=== PATIENT | female | born 1965 | race Caucasian/White ===

== ENCOUNTER 2022-07-20 15:35 | Outpatient (OUT) | payer BC, SELFPAY ==
--- NOTE | 2022-07-20 15:44 | MM_ITS ---
Patient: CIELO STEVENS Exam Date: 07/20/2022 : 1965 Gender:F Ordering : [facility] Admission #: [id number] Family : Order #: [id number] CLICK HERE TO VIEW EXAM RADIOLOGY REPORT PROCEDURE: MM TOMOSYNTHESIS SCREENING BI COMPARISON: MG MAMM SCREEN 3D MICHELLE CAD, 07/16/2021. INDICATIONS: Screening mammogram Calculator Name NCI Breast Cancer Risk Assessment Tool 5 Year Breast Cancer Risk 2.40% Lifetime Breast Cancer Risk 14.80% Personal Breast Cancer No Personal Ovarian Cancer No Treatments None Family Cancers Mother with breast cancer at age 55. LOCATION: [facility] BREAST COMPOSITION: Heterogeneously dense,which may obscure small masses. FINDINGS: DIAGNOSTIC CATEGORY 2--BENIGN FINDING: RIGHT BREAST: No significant suspicious finding. No significant change has occurred. LEFT BREAST: No significant suspicious finding. Scattered benign-appearing calcifications are present. No significant change has occurred. RECOMMENDATIONS: ROUTINE MAMMOGRAM AND CLINICAL EVALUATION IN 12 MONTHS. PLEASE NOTE: A NORMAL MAMMOGRAM DOES NOT EXCLUDE THE POSSIBILITY OF BREAST CANCER. A CLINICALLY SUSPICIOUS PALPABLE LUMP SHOULD BE BIOPSIED. Dictated by: Hayden Perla M.D. on 07/21/2022 at 11:39 Approved by: Hayden Perla M.D. on 07/21/2022 at 11:44
== END 2022-07-20 15:36 ==
LOC: MAMMO 15:38
PROVIDERS: PCP Nurse Practitioner Family; Visit Provider Nurse Practitioner Family
DX: Z12.31 Encounter for screening mammogram for malignant neoplasm of breast (principal); Z80.3 Family history of malignant neoplasm of breast
CPT/HCPCS: 77063; 77067

== ENCOUNTER 2022-09-21 14:47 | Outpatient (OUT) | payer BC, SELFPAY ==
[2022-09-21 15:14] LABS: Basophils Percent Auto 0.5 % (0.2-2.0); Eosinophils Absolute Auto 0.3 10^3/uL (0.0-0.7); Eosinophils Percent Auto 4.6 % (0.9-7.0); Hematocrit 37.8 % (36.0-48.0); Hemoglobin 12.4 g/dL (12.0-16.0); Immature Granulocytes Abs Auto 0.02 10^3/uL (0.00-0.03); Immature Granulocytes Pct Auto 0.3 % (0.0-0.5); Lymphocytes Absolute Auto 2.6 10^3/uL (1.2-3.8); Lymphocytes Percent Auto 35.3 % (20.5-60.0); Mean Corpuscular HGB Conc 32.8 g/dL (29.9-35.2); Mean Corpuscular Hemoglobin 31.1 pg (26.7-34.0); Mean Corpuscular Volume 94.7 fL (81.0-99.0); Monocytes Absolute Auto 0.5 10^3/uL (0.3-0.8); Monocytes Percent Auto 6.8 % (1.7-12.0); Neutrophils Absolute Auto 3.9 10^3/uL (1.4-6.5); Neutrophils Percent Auto 52.5 % (43.0-75.0); Platelet Count 266 10^3/uL (150-450); Red Blood Count 3.99 10^6/uL (4.20-5.40); Red Cell Distribution Width 13.3 % (11.0-15.0); White Blood Count 7.4 10^3/uL (4.0-11.0)
[2022-09-21 15:21] LABS: Erythrocyte Sedimentation Rate 24 mm/hr (<=30)
[2022-09-21 15:22] LABS: Alanine Aminotransferase 32 U/L (14-59); Albumin Globulin Ratio 0.9; Albumin Level 3.7 g/dL (3.4-5.0); Alkaline Phosphatase 92 U/L (46-116); Aspartate Amino Transferase 22 U/L (15-37); Bilirubin Direct 0.1 mg/dL (0.0-0.2); Bilirubin Total 0.6 mg/dL (0.2-1.0); Estimated GFR (African America >60 (>=60); Estimated GFR (Non-African Ame >60 (>=60); Globulin 3.9 g/dL; Total Protein 7.6 g/dL (6.4-8.2)
== END 2022-09-21 14:48 | disposition home or self-care (01) ==
LOC: LAB 14:50
PROVIDERS: PCP Nurse Practitioner Family; Visit Provider Internal Medicine Rheumatology
DX: M05.79 Rheumatoid arthritis with rheumatoid factor of multiple sites without organ or systems involvement (principal)
CPT/HCPCS: 36415; 80076; 82565; 85025; 85652

== ENCOUNTER 2022-12-07 15:25 | Outpatient (OUT) | payer BC, SELFPAY ==
[2022-12-07 15:41] LABS: Basophils Percent Auto 0.5 % (0.2-2.0); Eosinophils Absolute Auto 0.3 10^3/uL (0.0-0.7); Eosinophils Percent Auto 3.7 % (0.9-7.0); Hematocrit 36.8 % (36.0-48.0); Hemoglobin 12.3 g/dL (12.0-16.0); Immature Granulocytes Abs Auto 0.01 10^3/uL (0.00-0.03); Immature Granulocytes Pct Auto 0.1 % (0.0-0.5); Lymphocytes Absolute Auto 2.2 10^3/uL (1.2-3.8); Lymphocytes Percent Auto 30.4 % (20.5-60.0); Mean Corpuscular HGB Conc 33.4 g/dL (29.9-35.2); Mean Corpuscular Hemoglobin 32.4 pg (26.7-34.0); Mean Corpuscular Volume 96.8 fL (81.0-99.0); Mean Platelet Volume 8.7 fL (9.5-13.5); Monocytes Absolute Auto 0.4 10^3/uL (0.3-0.8); Monocytes Percent Auto 5.7 % (1.7-12.0); Neutrophils Absolute Auto 4.4 10^3/uL (1.4-6.5); Neutrophils Percent Auto 59.6 % (43.0-75.0); Platelet Count 264 10^3/uL (150-450); Red Cell Distribution Width 13.5 % (11.0-15.0); White Blood Count 7.3 10^3/uL (4.0-11.0)
[2022-12-07 15:44] LABS: Erythrocyte Sedimentation Rate 22 mm/hr (<=30)
[2022-12-07 16:39] LABS: Alanine Aminotransferase 39 U/L (14-59); Albumin Level 3.8 g/dL (3.4-5.0); Alkaline Phosphatase 92 U/L (46-116); Aspartate Amino Transferase 24 U/L (15-37); Bilirubin Direct 0.2 mg/dL (0.0-0.2); Bilirubin Total 0.8 mg/dL (0.2-1.0); Estimated GFR (African America >60 (>=60); Estimated GFR (Non-African Ame 56 (>=60); Globulin 3.9 g/dL; Total Protein 7.7 g/dL (6.4-8.2)
== END 2022-12-07 15:26 | disposition home or self-care (01) ==
LOC: LAB 15:26
PROVIDERS: PCP Nurse Practitioner Family; Visit Provider Internal Medicine Rheumatology
DX: M05.79 Rheumatoid arthritis with rheumatoid factor of multiple sites without organ or systems involvement (principal)
CPT/HCPCS: 36415; 80076; 82565; 85025; 85652

== ENCOUNTER 2023-02-10 13:10 | Outpatient (OUT) | payer BC, SELFPAY ==
--- OUTSIDE RECORDS SUMMARY | 2023-02-10 13:14 | XMS_ITS | CCD ---
Author Name Unknown Address [address] [place] [address] Organization [facility] Care Team Providers Care Director Packaging Name Role Phone MARILYN DE Attending Unavailable SANTINO, MARILYN Admitting Unavailable Zieber, Hayden Consulting Unavailable SANTINO, MARILYN Primary Care Unavailable SANTINO, MARILYN Consulting Unavailable SANTINO, MARILYN Primary Care Unavailable WEST, KEILA Ambrocio Attending Unavailable WEST, KEILA V Admitting Unavailable WEST, KEILA V Consulting Unavailable SANTINO, MARILYN Primary Care Unavailable WEST, KEILA V Attending Unavailable WEST, KEILA V Admitting Unavailable WEST, KEILA V Consulting Unavailable ZiebHayden ray Consulting Unavailable SANTINO, MARILYN Primary Care Unavailable WEST, KEILA V Attending Unavailable WEST, KEILA V Admitting Unavailable WEST, KEILA V Consulting Unavailable SANTINO, MARILYN Primary Care Unavailable WEST, EKILA V Attending Unavailable WEST, KEILA V Admitting Unavailable WEST, KEILA V Consulting Unavailable SANTINO, MARILYN Primary Care Unavailable WEST, KEILA V Attending Unavailable WEST, KEILA V Admitting Unavailable WEST, KEILA V Consulting Unavailable Zieber, Hayden Consulting Unavailable SANTINO, MARILYN Attending Unavailable SANTINO, MARILYN Admitting Unavailable SANTINO, MARILYN Primary Care Unavailable AHMED, ERIKA Attending Unavailable AHMED, MOHNICOLASED Admitting Unavailable AHMED, MOHAMMED Consulting Unavailable SANTINO, MARILYN Primary Care Unavailable SANTINO, MARILYN Attending Unavailable SANTINO, MARILYN Admitting Unavailable SANTINO, MARILYN Consulting Unavailable SANTINO, MARILYN Primary Care Unavailable SANTINO, MARILYN Primary Care Unavailable AHMED, MOHAMMED Attending Unavailable AHMED, MOHAMMED Admitting Unavailable AHMED, MOHAMMED Consulting Unavailable Esdras Bonilla Admitting Unavailable Esdras Bonilla Attending Unavailable Problems Active Problems Problem Classification Problem Date Documented Da te Episodic/Chronic Conditions associated with dizziness or vertigo (4 sources) Dizziness and giddiness; Translations: [DIZZINESS AND GIDDINESS] Onset: 06-02-2022 Episodic Other connective tissue disease (1 source) Polymyalgia rheumatica; Translations: [POLYMYALGIA RHEUMATICA] Onset: 08-03-2021 Chronic Other inflammatory condition of skin (4 sources) Psoriatic arthritis mutilans; 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] Onset: 07-30-2021 Chronic Rheumatoid arthritis and related disease (5 sources) Rheumatoid arthritis with rheumatoid factor, unspecified; Translations: [RA W/ RHEUMATOID FACTOR UNSPECIFIED] Onset: 08-03-2021 Chronic Systemic lupus erythematosus and connective tissue disorders (1 source) Systemic sclerosis, unspecified; Translations: [SYSTEMIC SCLEROSIS UNSPECIFIED] Onset: 08-03-2021 Chronic Past or Other Problems Problem Classification Problem Date Documented Da te Episodic/Chronic Other aftercare (4 sources) Encounter for surgical aftercare following surgery on the circulatory system; Translations: [ENC SURG AFTRCARE FLW SURG CIRC SYS] Onset: 2 Episodic Other screening for suspected conditions (not mental disorders or infectious disease) (4 sources) Encounter for screening mammogram for malignant neoplasm of breast; Translations: [ENC SCR MAMMO MALIG NEOPLASM BREAST] Onset: 2 Episodic Phlebitis; thrombophlebitis and thromboembolism (5 sources) Phlebitis and thrombophlebitis of superficial vessels of left lower extremity; Translations: [PHLEBITIS AND TP SUP VES LT LOW EXT] Onset: 2 Episodic Residual codes; unclassified (1 source) Family history of malignant neoplasm of breast; Translations: [FAMILY HX MALIG NEOPLASM OF BREAST] Onset: 2 Episodic Varicose veins of lower extremity (5 sources) Varicose veins of bilateral lower extremities with pain; Translations: [VARICOSE VNS MICHELLE LOW EXTREM W/PAIN] Onset: 2 Episodic Results Test Name Value Interpretation Reference Range Facility GERONIMO Antinuclear Antibodieson 06-22-2022 Antinuclear Abs, IFA Negative Normal . [facility] Comment on above: Result Comment: Nega tive <1:80 Borderline 1:80 Positive >1:80 ICAP nomenclature: AC-[id number] For more information about Hep-2 cell patterns use ANApatterns.org, the official website for the International Consensus on Antinuclear Antibody (GERONIMO) Patterns (ICAP). Performed at: [address] [id number] Swimming Pool Installer And Servicer: Charlie Arevalo PhD, Phone: [phone] Performed By: #### A DNA, C4, GERONIMO, CH50, C3, LOZOYA #### [facility] , Anti-Lozoya Antibodieson 05 Anti-Lozoya Antibodies <0.2 Normal 0.0-0.9 [facility] Comment on above: Performed By: #### A DNA, C4, GERONIMO, CH50, C3, LOZOYA #### [facility] , Anti-dsDNA(DBL)Abon 06-23-19 23 Anti-dsDNA(DBL)Ab 1 Normal 0-9 [facility] Comment on above: Result Comment: Nega tive <5 Equivocal 5 - 9 Positive >9 Performed at: [address] [id number] Swimming Pool Installer And Servicer: Charlie Arevalo PhD, Phone: [phone] PERFORMED BY: [address] [place] [address] PATHOLOGIST MULTIPLE KNIFE EDGE TRIMMER OPERATOR EULALIA OLSEN M.D. Performed By: #### A DNA, C4, GERONIMO, CH50, C3, LOZOYA #### [facility] , C-Reactive Proteinon 023 C-Reactive Protein 1.1 mg/dL High 0.0-0.5 [facility] Comment on above: Result Comment: PERF ORMED BY: [address] [place] [address] PATHOLOGIST MULTIPLE KNIFE EDGE TRIMMER OPERATOR EULALIA OLSEN M.D. Performed By: #### A DNA, C4, GERONIMO, CH50, C3, LOZOYA #### [facility] , Complement C3on 06-22-2022 Complement C3 147 mg/dL Normal 82-167 [facility] Comment on above: Result Comment: Perf ormed at: [address] [id number] Swimming Pool Installer And Servicer: Charlie Arevalo PhD, Phone: [phone] Performed By: #### A DNA, C4, GERONIMO, CH50, C3, LOZOYA #### [facility] , Complement C4on 06-22-2022 Complement C4 33 mg/dL Normal 12-38 [facility] Comment on above: Performed By: #### A DNA, C4, GERONIMO, CH50, C3, LOZOYA #### [facility] , Complement Total (CH50)on Complement Total (CH50) 55 Normal >41 [facility] Comment on above: Result Comment: Age Male Female 1 - 30 days Not Estab. Not Estab. 31 days - 6 months >32 >20 7 months - 17 years >39 >39 >17 years >41 >41 NOTE: The adult ( >17 years ) reference interval range is used to flag abnormals on this report. If the patient is 17 years old or younger, use the table above to determine out of range values. Performed at: [facility] [address] [id number] Swimming Pool Installer And Servicer: Charlie Arevalo PhD, Phone: [phone] PERFORMED BY: [place] [address] PATHOLOGIST MULTIPLE KNIFE EDGE TRIMMER OPERATOR EULALIA OLSEN M.D. Performed By: #### A DNA, C4, GERONIMO, CH50, C3, LOZOYA #### [facility] , Complete Blood Count Auto Di ffon 06-22-2022 Basophils (Bld) [#/Vol] 0.1 10*3/uL Normal 0.0-0.2 [facility] Comment on above: Performed By: #### H BCAB, HBSAG, HCV RX PCR, HBSAB #### [facility] , #### ADDONUAPLUS, ESR, CBC, CMP, CRP #### [address] Basophils/100 WBC (Bld) 0.7 % Normal . [facility] Comment on above: Performed By: #### H BCAB, HBSAG, HCV RX PCR, HBSAB #### [facility] , #### ADDONUAPLUS, ESR, CBC, CMP, CRP #### [address] Eosinophils (Bld) [#/Vol] 0.3 10*3/uL Normal 0.0-0.45 [facility] Comment on above: Performed By: #### H BCAB, HBSAG, HCV RX PCR, HBSAB #### [facility] , #### ADDONUAPLUS, ESR, CBC, CMP, CRP #### [address] Eosinophils/100 WBC (Bld) 3.8 % Normal . [facility] Comment on above: Performed By: #### H BCAB, HBSAG, HCV RX PCR, HBSAB #### [facility] , #### ADDONUAPLUS, ESR, CBC, CMP, CRP #### [address] Erythrocyte distribution width (RBC) [Ratio] 13.7 % Normal 11.9-15.3 [facility] Comment on above: Performed By: #### H BCAB, HBSAG, HCV RX PCR, HBSAB #### [facility] , #### ADDONUAPLUS, ESR, CBC, CMP, CRP #### [address] Hematocrit (Bld) [Volume fraction] 39.4 % Normal 34.0-46.4 [facility] Comment on above: Performed By: #### H BCAB, HBSAG, HCV RX PCR, HBSAB #### [facility] , #### ADDONUAPLUS, ESR, CBC, CMP, CRP #### [address] Hemoglobin (Bld) [Mass/Vol] 13.0 g/dL Normal 11.8-15.4 [facility] Comment on above: Performed By: #### H BCAB, HBSAG, HCV RX PCR, HBSAB #### [facility] , #### ADDONUAPLUS, ESR, CBC, CMP, CRP #### [address] Lymphocytes (Bld) [#/Vol] 2.5 10*3/uL Normal 1.00-4.8 [facility] Comment on above: Performed By: #### H BCAB, HBSAG, HCV RX PCR, HBSAB #### [facility] , #### ADDONUAPLUS, ESR, CBC, CMP, CRP #### [address] Lymphocytes/100 WBC (Bld) 35.4 % Normal . [facility] Comment on above: Performed By: #### H BCAB, HBSAG, HCV RX PCR, HBSAB #### [facility] , #### ADDONUAPLUS, ESR, CBC, CMP, CRP #### [address] MCH (RBC) [Entitic mass] 31.3 pg Normal 24.7-34.3 [facility] Comment on above: Performed By: #### H BCAB, HBSAG, HCV RX PCR, HBSAB #### [facility] , #### ADDONUAPLUS, ESR, CBC, CMP, CRP #### [address] MCV (RBC) [Entitic vol] 94.7 fL Normal 80-100 [facility] Comment on above: Performed By: #### H BCAB, HBSAG, HCV RX PCR, HBSAB #### [facility] , #### ADDONUAPLUS, ESR, CBC, CMP, CRP #### [address] Mean Corpuscular HGB Conc 33.1 g/dL Normal 32.0-35.0 [facility] Comment on above: Performed By: #### H BCAB, HBSAG, HCV RX PCR, HBSAB #### [facility] , #### ADDONUAPLUS, ESR, CBC, CMP, CRP #### [place] [address] [place] Monocytes (Bld) [#/Vol] 0.3 10*3/uL Normal 0.0-0.8 [facility] Comment on above: Performed By: #### H BCAB, HBSAG, HCV RX PCR, HBSAB #### [facility] , #### ADDONUAPLUS, ESR, CBC, CMP, CRP #### [place] [address] [place] Monocytes/100 WBC (Bld) 4.7 % Normal . [facility] Comment on above: Performed By: #### H BCAB, HBSAG, HCV RX PCR, HBSAB #### [facility] , #### ADDONUAPLUS, ESR, CBC, CMP, CRP #### [place] [address] [place] Neutrophils (Bld) [#/Vol] 3.9 10*3/uL Normal 1.8-7.7 [facility] Comment on above: Performed By: #### H BCAB, HBSAG, HCV RX PCR, HBSAB #### [facility] , #### ADDONUAPLUS, ESR, CBC, CMP, CRP #### [address] Neutrophils/100 WBC (Bld) 55.4 % Normal . [facility] Comment on above: Performed By: #### H BCAB, HBSAG, HCV RX PCR, HBSAB #### [facility] , #### ADDONUAPLUS, ESR, CBC, CMP, CRP #### [place] [address] [place] NRBC% 0.0 /100{WBC} Normal 0-0.5 [facility] Comment on above: Performed By: #### H BCAB, HBSAG, HCV RX PCR, HBSAB #### [facility] , #### ADDONUAPLUS, ESR, CBC, CMP, CRP #### [address] Platelet mean volume (Bld) [Entitic vol] 7.5 fL Normal 6.3-10.7 [facility] Comment on above: Performed By: #### H BCAB, HBSAG, HCV RX PCR, HBSAB #### [facility] , #### ADDONUAPLUS, ESR, CBC, CMP, CRP #### [address] Platelets (Bld) [#/Vol] 299 10*3/uL Normal 150-450 [facility] Comment on above: Performed By: #### H BCAB, HBSAG, HCV RX PCR, HBSAB #### [facility] , #### ADDONUAPLUS, ESR, CBC, CMP, CRP #### [address] RBC (Bld) [#/Vol] 4.17 10*6/uL Normal 3.60-5.00 [facility] Comment on above: Performed By: #### H BCAB, HBSAG, HCV RX PCR, HBSAB #### [facility] , #### ADDONUAPLUS, ESR, CBC, CMP, CRP #### [address] WBC (Bld) [#/Vol] 7.1 10*3/uL Normal 3.8-11.6 [facility] Comment on above: Performed By: #### H BCAB, HBSAG, HCV RX PCR, HBSAB #### [facility] , #### ADDONUAPLUS, ESR, CBC, CMP, CRP #### [address] Comprehensive Metabolic Pane darshan 06-22-2022 Albumin [Mass/Vol] 4.4 g/dL Normal 3.5-5.7 [facility] Comment on above: Performed By: #### A DNA, C4, GERONIMO, CH50, C3, LOZOYA #### [facility] , Albumin/Globulin [Mass ratio] 1.6 {ratio} Normal [facility] Comment on above: Performed By: #### A DNA, C4, GERONIMO, CH50, C3, LOZOYA #### [facility] , ALP [Catalytic activity/Vol] 78 U/L Normal 34-104 [facility] Comment on above: Performed By: #### A DNA, C4, GERONIMO, CH50, C3, LOZOYA #### [facility] , ALT [Catalytic activity/Vol] 21 U/L Normal 7-52 [facility] Comment on above: Performed By: #### A DNA, C4, GERONIMO, CH50, C3, LOZOYA #### [facility] , Anion gap [Moles/Vol] 12.9 mmol/L Normal 6.0-15.0 [facility] Comment on above: Performed By: #### A DNA, C4, GERONIMO, CH50, C3, LOZOYA #### [facility] , AST [Catalytic activity/Vol] 24 U/L Normal 13-39 [facility] Comment on above: Performed By: #### A DNA, C4, GERONIMO, CH50, C3, LOZOYA #### [facility] , Bilirubin [Mass/Vol] 0.9 mg/dL Normal 0.3-1.0 [facility] Comment on above: Performed By: #### A DNA, C4, GERONIMO, CH50, C3, LOZOYA #### [facility] , Calcium [Mass/Vol] 9.0 mg/dL Normal 8.6-10.3 [facility] Comment on above: Performed By: #### A DNA, C4, GERONIMO, CH50, C3, LOZOYA #### [facility] , Chloride [Moles/Vol] 106 mmol/L Normal 98-107 [facility] Comment on above: Performed By: #### A DNA, C4, GERONIMO, CH50, C3, LOZOYA #### [facility] , CO2 [Moles/Vol] 25.2 mmol/L Normal 21.0-31.0 [facility] Comment on above: Performed By: #### A DNA, C4, GERONIMO, CH50, C3, LOZOYA #### [facility] , Creatinine [Mass/Vol] 0.79 mg/dL Normal 0.60-1.20 [facility] Comment on above: Performed By: #### A DNA, C4, GERONIMO, CH50, C3, LOZOYA #### [facility] , GFR/1.73 sq M.predicted MDRD (S/P/Bld) [Vol rate/Area] mL/min/{1.73_m2} Normal [facility] Comment on above: Performed By: #### A DNA, C4, GERONIMO, CH50, C3, LOZOYA #### [facility] , Globulin (S) [Mass/Vol] 2.8 g/dL Normal [facility] Comment on above: Performed By: #### A DNA, C4, GERONIMO, CH50, C3, LOZOYA #### [facility] , Glucose [Mass/Vol] 97 mg/dL Normal 70-100 [facility] Comment on above: Result Comment: [place] Glucose Reference Range is dependent on time and content of last meal. Glucose of more than 200 mg/dL in a nonstressed, ambulatory subject supports the diagnosis of Diabetes Mellitus. ADA recommended reference range Performed By: #### A DNA, C4, GERONIMO, CH50, C3, LOZOYA #### [facility] , Potassium [Moles/Vol] 4.1 mmol/L Normal 3.5-5.1 [facility] Comment on above: Performed By: #### A DNA, C4, GERONIMO, CH50, C3, LOZOYA #### [facility] , Protein [Mass/Vol] 7.2 g/dL Normal 6.4-8.9 [facility] Comment on above: Performed By: #### A DNA, C4, GERONIMO, CH50, C3, LOZOYA #### [facility] , Sodium [Moles/Vol] 140 mmol/L Normal 136-145 [facility] Comment on above: Performed By: #### A DNA, C4, GERONIMO, CH50, C3, LOZOYA #### [facility] , Urea nitrogen [Mass/Vol] 12 mg/dL Normal 7-25 [facility] Comment on above: Performed By: #### A DNA, C4, GERONIMO, CH50, C3, LOZOYA #### [facility] , Dipstick and Microscopicon 0 06-22-2022 Appearance (U) Clear Normal Clear [facility] Comment on above: Order Comment: Name Collection Type:: Clean-Voided Midstream Performed By: #### H BCAB, HBSAG, HCV RX PCR, HBSAB #### [facility] , #### ADDONUAPLUS, ESR, CBC, CMP, CRP #### [facility] [address] [place] [address] [place] Bacteria,Urine 1+ High None Seen [facility] Comment on above: Order Comment: Name Collection Type:: Clean-Voided Midstream Performed By: #### H BCAB, HBSAG, HCV RX PCR, HBSAB #### [facility] , #### ADDONUAPLUS, ESR, CBC, CMP, CRP #### [facility] [address] [place] [address] [place] Bilirubin,Urine Negative Normal Negative [facility] Comment on above: Order Comment: Name Collection Type:: Clean-Voided Midstream Performed By: #### H BCAB, HBSAG, HCV RX PCR, HBSAB #### [facility] , #### ADDONUAPLUS, ESR, CBC, CMP, CRP #### [facility] [address] [place] [address] [place] Color (U) Yellow Normal Yellow [facility] Comment on above: Order Comment: Name Collection Type:: Clean-Voided Midstream Performed By: #### H BCAB, HBSAG, HCV RX PCR, HBSAB #### [facility] , #### ADDONUAPLUS, ESR, CBC, CMP, CRP #### [facility] [address] [place] [address] Glucose Ql (U) Normal Normal Normal [facility] Comment on above: Order Comment: Name Collection Type:: Clean-Voided Midstream Performed By: #### H BCAB, HBSAG, HCV RX PCR, HBSAB #### [facility] , #### ADDONUAPLUS, ESR, CBC, CMP, CRP #### [address] Hyaline Casts,Urine 0-8 Normal 0-8 [facility] Comment on above: Order Comment: Name Collection Type:: Clean-Voided Midstream Result Comment: PERF ORMED BY: [place] [address] PATHOLOGIST MULTIPLE KNIFE EDGE TRIMMER OPERATOR EULALIA OLSEN M.D. Performed By: #### H BCAB, HBSAG, HCV RX PCR, HBSAB #### [facility] , #### ADDONUAPLUS, ESR, CBC, CMP, CRP #### [facility] [address] [place] [address] Ketones Ql (U) Negative Normal Negative [facility] Comment on above: Order Comment: Name Collection Type:: Clean-Voided Midstream Performed By: #### H BCAB, HBSAG, HCV RX PCR, HBSAB #### [facility] , #### ADDONUAPLUS, ESR, CBC, CMP, CRP #### [facility] [address] [place] [address] Leukocyte esterase Test strip Ql (U) Negative Normal Negative [facility] Comment on above: Order Comment: Name Collection Type:: Clean-Voided Midstream Performed By: #### H BCAB, HBSAG, HCV RX PCR, HBSAB #### [facility] , #### ADDONUAPLUS, ESR, CBC, CMP, CRP #### [facility] [address] [place] [address] Nitrite,Urine Negative Normal Negative [facility] Comment on above: Order Comment: Name Collection Type:: Clean-Voided Midstream Performed By: #### H BCAB, HBSAG, HCV RX PCR, HBSAB #### [facility] , #### ADDONUAPLUS, ESR, CBC, CMP, CRP #### [facility] [address] [place] [address] Occult Blood,Urine Negative Normal Negative [facility] Comment on above: Order Comment: Name Collection Type:: Clean-Voided Midstream Performed By: #### H BCAB, HBSAG, HCV RX PCR, HBSAB #### [facility] , #### ADDONUAPLUS, ESR, CBC, CMP, CRP #### [address] pH (U) 5.5 [pH] Normal 5.0-9.0 [facility] Comment on above: Order Comment: Name Collection Type:: Clean-Voided Midstream Performed By: #### H BCAB, HBSAG, HCV RX PCR, HBSAB #### [facility] , #### ADDONUAPLUS, ESR, CBC, CMP, CRP #### [facility] [address] [place] [address] Protein,Urine Negative Normal Negative [facility] Comment on above: Order Comment: Name Collection Type:: Clean-Voided Midstream Performed By: #### H BCAB, HBSAG, HCV RX PCR, HBSAB #### [facility] , #### ADDONUAPLUS, ESR, CBC, CMP, CRP #### [facility] [address] [place] [address] RBC,Urine 3-4 Normal 0-4 [facility] Comment on above: Order Comment: Name Collection Type:: Clean-Voided Midstream Performed By: #### H BCAB, HBSAG, HCV RX PCR, HBSAB #### [facility] , #### ADDONUAPLUS, ESR, CBC, CMP, CRP #### [facility] [address] [place] [address] [place] Specificy [place],Urine 1.021 Normal 1.001-1.030 [facility] Comment on above: Order Comment: Name Collection Type:: Clean-Voided Midstream Performed By: #### H BCAB, HBSAG, HCV RX PCR, HBSAB #### [facility] , #### ADDONUAPLUS, ESR, CBC, CMP, CRP #### [facility] [address] [place] [address] Squamous Epithelial Cell,Urine 5-9 High 0-2 [facility] Comment on above: Order Comment: Name Collection Type:: Clean-Voided Midstream Performed By: #### H BCAB, HBSAG, HCV RX PCR, HBSAB #### [facility] , #### ADDONUAPLUS, ESR, CBC, CMP, CRP #### [facility] [address] [place] [address] Urobilinogen,Urine Normal Normal Normal [facility] Comment on above: Order Comment: Name Collection Type:: Clean-Voided Midstream Performed By: #### H BCAB, HBSAG, HCV RX PCR, HBSAB #### [facility] , #### ADDONUAPLUS, ESR, CBC, CMP, CRP #### [facility] [address] [place] [address] [place] WBC,Urine 5-9 High 0-4 [facility] Comment on above: Order Comment: Name Collection Type:: Clean-Voided Midstream Performed By: #### H BCAB, HBSAG, HCV RX PCR, HBSAB #### [facility] , #### ADDONUAPLUS, ESR, CBC, CMP, CRP #### [facility] [address] [place] [address] Erythrocyte Sedimentation Ra raymond 06-22-2022 ESR (Bld) [Velocity] 36 mm/h High 0-29 [facility] Comment on above: Result Comment: PERF ORMED BY: [place] [address] PATHOLOGIST MULTIPLE KNIFE EDGE TRIMMER OPERATOR EULALIA OLSEN M.D. Performed By: #### A DNA, C4, GERONIMO, CH50, C3, LOZOYA #### [facility] , Hep C Ab wRfx to Qnt PCRon 0 06-22-2022 Hepatitis C Virus Antibody Non-Reactive Normal Non Reactive [facility] Comment on above: Performed By: #### A DNA, C4, GERONIMO, CH50, C3, LOZOYA #### [facility] , Interpretation Hepatitis C Normal . [facility] Comment on above: Result Comment: Not infected with HCV unless early or acute infection is suspected (which may be delayed in an immunocompromised individual), or other evidence exists to indicate HCV infection. Performed By: #### A DNA, C4, GERONIMO, CH50, C3, LOZOYA #### [facility] , Hepatitis B Core Antibodyon 06-22-2022 Hepatitis B Core Antibody Negative Normal Negative [facility] Comment on above: Result Comment: Perf ormed at: [facility] [address] [id number] Swimming Pool Installer And Servicer: Charlie Arevalo PhD, Phone: [phone] Performed By: #### A DNA, C4, GERONIMO, CH50, C3, LOZOYA #### [facility] , Hepatitis B Surface Antibody on 06-22-2022 Hepatitis B Surface Antibody Non-Reactive Normal . [facility] Comment on above: Result Comment: Non Reactive: Inconsistent with immunity, less than 10 mIU/mL Reactive: Consistent with immunity, greater than 9.9 mIU/mL Performed By: #### A DNA, C4, GERONIMO, CH50, C3, LOZOYA #### [facility] , Hepatitis B Surface Antigeno n 06-22-2022 HBsAg Screen Negative Normal Negative [facility] Comment on above: Result Comment: PERF ORMED BY: [facility] [address] [place] [address] PATHOLOGIST MULTIPLE KNIFE EDGE TRIMMER OPERATOR EULALIA OLSEN M.D. Performed By: #### A DNA, C4, GERONIMO, CH50, C3, LOZOYA #### [facility] , XR chest 2V*on 06-22-2022 XR chest 2V* [facility] Main [address] [address] XRay Report Signed Patient: Cielo Ray MR#: [id number] 66 : 1965 Acct:[id number] Age/Sex: 56 / F ADM Date: 06/22/22 Loc: ICXD [facility]: Esdras Bonilla MD Copies to: Esdras Bonilla MD Ordering Provider: Esdras Bonilla MD Date of Service: 06/22/22 XR/XR chest 2V*: IMMUNOSUPPRESSION BILAT HAND PAIN Chest 2 views CLINICAL HISTORY: Immunosuppression. Bilateral hand swelling. COMPARISON: None FINDINGS: Heart normal size. Lungs are clear. No free air. XR/XR chest 2V* IMPRESSION: NO ACUTE CARDIOPULMONARY ABNORMALITY. Impression dictated by: Cr Vitale Jr., D.OHong06/22/2022 4:08 PM Dictation Location: [place] [address] Transcribed By: [facility] 06/22/22 1608 Dictated By: Cr Vitale Jr, DO 06/22/22 1608 Signed By: 06/22/22 1608 Normal [facility] XR hand BI 2Von 06-22-2022 XR hand BI 2V [address] [address] XRay Report Signed Patient: Cielo Ray MR#: [id number] 66 : 1965 Acct:[id number] Age/Sex: 56 / F ADM Date: 06/22/22 Loc: ICXD [facility]: [facility]: Esdras Bonilla MD Copies to: Esdras Bonilla MD Ordering Provider: Esdras Bonilla MD Date of Service: 06/22/22 XR/XR hand BI 2V: BILAT HAND PAIN BILATERAL HAND - 2 views each REASON FOR EXAM: Bilateral hand pain/swelling to joints. COMPARISON: None FINDINGS: Right hand demonstrates no focal soft tissue abnormality. No acute bony process is seen. Joint spaces appear maintained without bony erosion. Left hand demonstrates findings without acute bony process. No bony erosions. XR/XR hand BI 2V IMPRESSION: NO ACUTE BONY PROCESS. Impression dictated by: Cr Vitale Jr., D.O.06/22/2022 4:12 PM Dictation Location: [place] [id number] Transcribed By: [facility] 06/22/22 161 Dictated By: Cr Vitale Jr, DO 06/22/22 1608 Signed By: 06/22/22 1612 [facility] VC CONSULT FOLLOWUPon 2021 VC CONSULT FOLLOWUP Patient: JEAN PIERRE RAY Exam Date: 02/02/2022 : 1965 Gender:F Ordering : DR KEILA DE LA FUENTE M.D. Admission #: [id number] Family : Order #: [id number] CLICK HERE TO VIEW EXAM RADIOLOGY REPORT PROCEDURE: VEIN CENTER CONSULTATION FOLLOWUP VEIN CENTER - OFFICE VISIT FOLLOW UP COMPARISON: VC CONSULT FOLLOWUP, 12/29/2021. PROGRESS NOTES: The patient reports improvement in leg symptoms. There has been interval reduction in varicosities. The patient has followed our recommendations to walk 20-30 minutes once or twice per day since the procedure. Physical exam demonstrates decrease in superficial varicosities of the right and left leg. Persistent superficial varicosities are identified along the legs bilaterally. Review of the ultrasound performed the same day demonstrates occlusive thrombus extending throughout the treated vein, see separate report, consistent with a successful ablation. No thrombus extending into or beyond the saphenofemoral junction. IMPRESSION: 1. Successful ablation of the left small saphenous vein 2. Persistent superficial varicose veins and mild leg symptoms PLAN: Patient was not approved by insurance for any additional treatment. Patient will follow-up in future as needed. Nurse notes, history and physical were reviewed and confirmed, see attached forms. The nurse was present throughout the physical exam and consultation Dictated by: Hayden Perla M.D. on 02/02/2022 at 15:51 Approved by: Hayden Perla M.D. on 02/02/2022 at 15:55 [facility] VC EXT VENOUS LT LIMITEDon 1 04-05-2021 VC EXT VENOUS LT LIMITED Patient: CIELO RAY. Exam Date: 02/02/2022 : 1965 Gender:F Ordering : DR KEILA DE LA FUENTE M.D. Admission #: [id number] Family : Order #: [id number] CLICK HERE TO VIEW EXAM RADIOLOGY REPORT PROCEDURE: VEIN CENTER EXTREMITY VENOUS LEFT LIMITED COMPARISON: VC EXT VENOUS LT LIMITED, 12/29/2021. INDICATIONS: Phlebitis of superficial veins of lower extremity I80.02 TECHNIQUE: Lower extremity rivera scale and Duplex Doppler evaluation of the deep venous system from the inguinal ligament through the calf veins. FINDINGS: REGION: Left lower extremity. THROMBI: Negative for DVT. Heat induced thrombus visualized in the SSV. The heat induced thrombus extends through distal calf. COMPRESSIBILITY: Non-compressible segments. FLOW: Areas of no flow. OTHER: CONCLUSION: 1. Successful post ablation occlusion of the left small saphenous vein. Dictated by: Hayden Perla M.D. on 02/02/2022 at 15:50 Approved by: Hayden Perla M.D. on 02/02/2022 at 15:51 Normal [facility] VC ENDOVENOUS ABL 1ST V LTon 01-26-2022 VC ENDOVENOUS ABL 1ST V LT Patient: CIELO RAY Exam Date: 01/26/2022 : 1965 Gender:F Ordering : DR KEILA DE LA FUENTE M.D. Admission #: [id number] Family : Order #: [id number] CLICK HERE TO VIEW EXAM RADIOLOGY REPORT PROCEDURE: VEIN CENTER ENDOVENOUS ABLATION FIRST VEIN LEFT SMALL SAPHENOUS VEIN COMPARISON: VC VENOUS REFLUX MICHELLE LMT, 11/30/2021. VC VENOUS REFLUX MICHELLE LMT, 08/12/2020. VC ENDOVENOUS ABL 1ST V LT, 12/22/2021. INDICATIONS: Pain co-occurrent and due to varicose veins of bilateral legs I83.813 OPERATIVE REPORT: The risks and benefits of the procedure had been previously discussed, and were rediscussed at length. Informed written consent was obtained by and Dameon neri. Time out procedure was performed. The left lower extremity was prepared and draped in the usual sterile fashion. Duplex ultrasound probe was draped in a sterile cover, sterile transmission gel was used. Venous mapping was performed with the areas of dilation and large tributaries marked. The total length was 19 cm from the entry 6 cm above the lateral malleolus to wear the vein begins to dive deep to the saphenopopliteal junction. The diameter of the greater saphenous vein ranged from 3-6 mm. A 30 gauge needle and 1% buffered lidocaine was used to anesthetize the entry site. A 4 mm incision was made with a scalpel and the saphenous vein was entered percutaneously under direct ultrasound guidance with a micropuncture set, a single stick was successful in gaining access. A micro-guide wire was inserted and the needle removed. A micro-set including a dilator was inserted over the microwire and the needle and dilator were removed. A 0.018 guide wire was inserted through the micro-set and threaded through the saphenous vein. The dilator was removed and an introducer sheath was inserted over the wire. The dilator and wire were removed and the 600 micron fiber was introduced and placed and positioned so that it extended beyond the sheath. Final position of the fiber was determined by ultrasound guidance and duplex imaging. Tumescent anesthetic was delivered by ultrasound guidance. 100 cc of fluid was delivered along the entire course of the saphenous vein. The solution consisted of 500 cc of normal saline with 20mL of 1% lidocaine and 10 mL of sodium bicarbonate. A final positioning check was made. The energy source was turned on by means of the foot pedal and the fiber and sheath were withdrawn. The total number of Joules delivered was 916. The laser was active for 115 seconds under continuous pulse, average laser use of 8 J. Laser start time 4:01 p.m. January 26, 2022. Laser stop time 4:04 p.m. January 26, 2022 A duplex ultrasound revealed compressibility and flow at the saphenofemoral junction immediately after the procedure. Hemostasis at the access site was achieved. The skin incision of the saphenous vein was closed with a 4 x 4. A compression stocking was applied. Postop instructions were given. A follow up appointment was recommended and scheduled. The patient tolerated the procedure well and was discharged in good condition. CONCLUSION: 1. Technically successful endovenous laser ablation of the left small saphenous vein. Dictated by: Keila De La Fuente MD on 01/26/2022 at 16:05 Approved by: Keila De La Fuente MD on 01/26/2022 at 16:08 Normal [facility] ALBUMINon 01-14-2022 Albumin [Mass/Vol] 3.6 g/dL Normal 3.4-5.0 [facility] Comment on above: Performed By: #### C JENELLE, ALB, ALT, CRP ####[facility] [address] [place], [place] [address]LrDr. Wilbert Gomez CBC AUTO DIFFon 01-14-2022 BASO # 0.0 103/ul Normal 0.0-0.1 [facility] Comment on above: Performed By: #### C BC #### [facility] [address] [place] [address] [address] Wilbert Gomez Basophils/100 WBC (Bld) 0.5 % Normal 0.2-2.0 [facility] Comment on above: Performed By: #### C BC #### [facility] [address] [place] [address] Dr. Wilbert Gomez EO # 0.3 103/ul Normal 0.0-0.7 [facility] Comment on above: Performed By: #### C BC #### [facility] [address] [place] [address] Dr. Wilbert Gomez Eosinophils/100 WBC (Bld) 4.2 % Normal 0.9-7.0 [facility] Comment on above: Performed By: #### C BC #### [facility] [address] [place] [address] Dr. Wilbert Gomez Erythrocyte distribution width (RBC) [Ratio] 13.6 % Normal 11.0-15.0 [facility] Comment on above: Performed By: #### C BC #### [facility] [address] [place] [address] Dr. Wilbert Gomez Hematocrit (Bld) [Volume fraction] 36.8 % Normal 36.0-48.0 [facility] Comment on above: Performed By: #### C BC #### [facility] [address] [place] [address] Dr. Wilbert Gomez Hemoglobin (Bld) [Mass/Vol] 12.1 g/dL Normal 12.0-16.0 [facility] Comment on above: Performed By: #### C BC #### [facility] [address] [place] [address] Dr. Wilbert Gomez IG # 0.02 10e3/ul Normal 0.00-0.03 [facility] Comment on above: Performed By: #### C BC #### [facility] [address] [place] [address] Dr. Wilbert Gomez IG % 0.3 % Normal 0.0-0.5 [facility] Comment on above: Performed By: #### C BC #### [facility] [address] [place] [address] Dr. Wilbert Gomez LYMPH # 2.6 103/ul Normal 1.2-3.8 [facility] Comment on above: Performed By: #### C BC #### [facility] [address] [place] [address] Dr. Wilbert Gomez Lymphocytes/100 WBC (Bld) 35.7 % Normal 20.5-60.0 [facility] Comment on above: Performed By: #### C BC #### [facility] [address] [place] [address] Dr. Wilbert Gomez MANUAL DIFF REQ NO Normal [facility] Comment on above: Performed By: #### C BC #### [facility] [address] [place] [address] Dr. Wilbert Gomez MCH (RBC) [Entitic mass] 31.7 pg Normal 26.7-34.0 [facility] Comment on above: Performed By: #### C BC #### [facility] [address] [place] [address] Dr. Wilbert Gomez MCHC (RBC) [Mass/Vol] 32.9 g/dL Normal 29.9-35.2 [facility] Comment on above: Performed By: #### C BC #### [facility] [address] [place] [address] Dr. Wilbert Gomez MCV (RBC) [Entitic vol] 96.3 fL Normal 81.0-99.0 [facility] Comment on above: Performed By: #### C BC #### [facility] [address] [place] [address] Dr. Wilbert Gomez MONO # 0.5 103/ul Normal 0.3-0.8 [facility] Comment on above: Performed By: #### C BC #### [facility] [address] [place] [address] Dr. Wilbert Gomez Monocytes/100 WBC (Bld) 6.2 % Normal 1.7-12.0 [facility] Comment on above: Performed By: #### C BC #### [facility] [address] [place] [address] Dr. Wilbert Gomez NEUT # 3.9 103/ul Normal 1.4-6.5 [facility] Comment on above: Performed By: #### C BC #### [facility] [address] [place] [address] Dr. Wilbert Gomez Neutrophils/100 WBC (Bld) 53.1 % Normal 43.0-75.0 [facility] Comment on above: Performed By: #### C BC #### [facility] [address] [place] [address] Dr. Wilbert Gomez Platelet mean volume (Bld) [Entitic vol] 8.9 fL Critically low 9.5-13.5 [facility] Comment on above: Performed By: #### C BC #### [facility] [address] [place] [address] Dr. Wilbert Gomez PLT 275 103/ul Normal 150-450 [facility] Comment on above: Performed By: #### C BC #### [facility] [address] [place] [address] Dr. Wilbert Gomez RBC 3.82 106/ul Critically low 4.20-5.40 [facility] Comment on above: Performed By: #### C BC #### [facility] [address] [place] [address] Dr. Wilbert Gomez WBC 7.3 103/ul Normal 4.0-11.0 [facility] Comment on above: Performed By: #### C BC #### [facility] [address] [place] [address] Dr. Wilbert Gomez CREATININEon 01-14-2022 Creatinine [Mass/Vol] 0.79 mg/dL Normal 0.55-1.02 [facility] Comment on above: Performed By: #### C JENELLE, ALB, ALT, CRP ####[facility] [id number] [place] [address]Dr. Wilbert Gomez EGFR-AF GABONESE >60 Normal >=60 [facility] Comment on above: Performed By: #### C JENELLE, ALB, ALT, CRP ####[facility] [address] [place] [id number]. Wilbert Gomez EGFR-NON AF GABONESE >60 Normal >=60 [facility] Comment on above: Performed By: #### C JENELLE, ALB, ALT, CRP ####[facility] [address] [place] [address]Dr. Wilbert Gomez CRPon 01-14-2022 CRP 1.1 mg/dL Critically high <=1.0 [facility] Comment on above: Performed By: #### C JENELLE, ALB, ALT, CRP ####[facility] [address] [place] [address]Dr. Wilbert Gomez SED RATE DILLSBURGERGRENon 2021 SED RATE 37 mm/hr Critically high <=30 [facility] Comment on above: Performed By: #### C BC #### [facility] [address] [place] [address] [address] Wilbert Gomez SGPTon 01-14-2022 ALT [Catalytic activity/Vol] 30 U/L Normal 14-59 [facility] Comment on above: Performed By: #### C JENELLE, ALB, ALT, CRP ####[facility] [address] [place] [address]Dr. Wilbert Gomez VC CONSULT FOLLOWUPon 2021 VC CONSULT FOLLOWUP Patient: JEAN PIERRE RAY Exam Date: 12/29/2021 : 1965 Gender:F Ordering : DR KEILA DE LA FUENTE M.D. Admission #: [id number] Family : Order #: [id number] CLICK HERE TO VIEW EXAM RADIOLOGY REPORT PROCEDURE: VEIN CENTER CONSULTATION FOLLOWUP VEIN CENTER - OFFICE VISIT FOLLOW UP COMPARISON: None. PROGRESS NOTES: The patient reports no significant pain following intravenous laser ablation of the left great saphenous vein. The patient did not require oral analgesics. The patient has worn her compression stockings. The patient has followed our recommendations to walk 20-30 minutes once or twice per day since the procedure. No change in the patient's symptoms at this time. Physical exam demonstrates 2 areas of bruising the largest measures 8 x 3 cm along the distal medial left thigh likely related to tumescent injection. No areas of erythema or warmth to suggest cellulitis or thrombophlebitis. No active ulceration. Review of the ultrasound performed the same day demonstrates occlusive thrombus extending throughout the treated vein, with heat induced thrombus 0.6 cm from the saphenofemoral junction. No deep vein thrombus. The patient expressed a desire to proceed with treatment of incompetent left small saphenous vein. IMPRESSION: 1. Successful ablation of the left great saphenous vein 2. Persistent incompetent left small saphenous vein PLAN: Intravenous laser ablation left small saphenous vein Nurse notes, history and physical were reviewed and confirmed, see attached forms. The nurse was present throughout the physical exam and consultation Dictated by: Keila De La Fuente MD on 12/29/2021 at 15:37 Approved by: Keila De La Fuente MD on 12/29/2021 at 15:41 Normal [facility] EXT VENOUS LT LIMITEDon 1 02-28-2021 EXT VENOUS LT LIMITED Patient: CIELO RAY Exam Date: 12/29/2021 : 1965 Gender:F Ordering : DR KEILA DE LA FUENTE M.D. Admission #: [id number] Family : Order #: [id number] CLICK HERE TO VIEW EXAM RADIOLOGY REPORT PROCEDURE: VEIN CENTER EXTREMITY VENOUS LEFT LIMITED COMPARISON: None. INDICATIONS: Phlebitis of superficial veins of lower extremity I80.02 TECHNIQUE: Lower extremity rivera scale and Duplex Doppler evaluation of the deep venous system from the inguinal ligament through the calf veins. FINDINGS: REGION: Left lower extremity. THROMBI: Negative for DVT. Heat induced thrombus 0.6 cm from the SFJ. The heat induced thrombus extends from groin to prox calf. COMPRESSIBILITY: Non-compressible segments. FLOW: Areas of no flow. *Exam performed in accordance with [facility] practice guidelines- Peripheral venous ultrasound, May 10, 2009. CONCLUSION: Post ablation occlusion of the left great saphenous vein with heat induced thrombus 0.6 cm from the saphenofemoral junction Dictated by: Keila De La Fuente MD on 12/29/2021 at 15:32 Approved by: Keila De La Fuente MD on 12/29/2021 at 15:34 Normal [facility] VC ENDOVENOUS ABL 1ST V LTon 12-22-2021 VC ENDOVENOUS ABL 1ST V LT Patient: CIELO RAY Exam Date: 12/22/2021 : 1965 Gender:F Ordering : DR KEILA DE LA FUENTE M.D. Admission #: [id number] Family : Order #: [id number] CLICK HERE TO VIEW EXAM RADIOLOGY REPORT PROCEDURE: VEIN CENTER ENDOVENOUS ABLATION FIRST VEIN LEFT GREAT SAPHENOUS VEIN COMPARISON: None. INDICATIONS: Pain co-occurrent and due to varicose veins of bilateral legs I83.813 OPERATIVE REPORT: The risks and benefits of the procedure had been previously discussed, and were rediscussed at length. Informed written consent was obtained by wy and Dameon Stewart assisted. Time out procedure was performed. The left lower extremity was prepared and draped in the usual sterile fashion to allow knee flexion in the sterile field. Duplex ultrasound probe was draped in a sterile cover, sterile transmission gel was used. Venous mapping was performed with the areas of dilation and large tributaries marked. The total length was 44 cm from the entry mid calf to 3 cm below the saphenofemoral junction. The diameter of the greater saphenous vein ranged from 7-14 mm. A 30 gauge needle and 1% buffered lidocaine was used to anesthetize the entry site. A 4 mm incision was made with a scalpel and the saphenous vein was entered percutaneously under direct ultrasound guidance with a micropuncture set, a single stick was successful in gaining access. A micro-guide wire was inserted and the needle removed. A micro-set including a dilator was inserted over the microwire and the needle and dilator were removed. A 0.018 guide wire was inserted through the micro-set and threaded through the saphenous vein to the saphenofemoral junction. The dilator was removed and an introducer sheath was inserted over the wire until the end of the sheath entered the saphenofemoral junction. The dilator and wire were removed and the 600 micron fiber was introduced and placed and positioned so that it extended beyond the sheath and was 3 cm peripheral to the saphenofemoral femoral junction. Final position of the fiber was determined by ultrasound guidance and duplex imaging. Tumescent anesthetic was delivered by ultrasound guidance. 200 cc of fluid was delivered along the entire course of the saphenous vein. The solution consisted of 500 cc of normal saline with 20mL of 1% lidocaine and 10 mL of sodium bicarbonate. A final positioning check was made. The energy source was turned on by means of the foot pedal and the fiber and sheath were withdrawn. The total number of Joules delivered was 2082. The laser was active for 260 seconds under continuous pulse, average laser use of 8 J. Laser start time 15:59 12/22/21. Laser stop time 16:04 12/22/21. A duplex ultrasound revealed compressibility and flow at the saphenofemoral junction immediately after the procedure. Hemostasis at the access site was achieved. The skin incision of the saphenous vein was closed with a 4 x 4. A compression stocking was applied. Postop instructions were given. A follow up appointment was recommended and scheduled. The patient tolerated the procedure well and was discharged in good condition. CONCLUSION: 1. Technically successful endovenous laser ablation of the left great saphenous vein. Dictated by: Keila De La Fuente MD on 12/22/2021 at 16:07 Approved by: Keila De La Fuente MD on 12/22/2021 at 16:10 Normal [facility] COMP CONSULTATIONon 11-30 COMP CONSULTATION Patient: KARINA RAY Exam Date: 11/30/2021 : 1965 Gender:F Ordering : DR KEILA DE LA FUENTE M.D. Admission #: [id number] Family : Order #: [id number] CLICK HERE TO VIEW EXAM RADIOLOGY REPORT PROCEDURE: VEIN CENTER CONSULTATION VEIN CENTER - OFFICE VISIT INITIAL COMPARISON: COMP CONSULTATION, 08/12/2020. PROGRESS NOTES: [age] year old female who presents with a 30+ year history of dilated bulging veins, leg pain, muscle cramping. The patient's left leg symptoms are worse than the right. There has been a progression of symptoms. This increases with prolonged leg dependency. The patient describes an improvement with rest and elevation. The patient denies any signs and symptoms to suggest arterial ischemia. The patient describes a family history of varicose veins in her mother. The patient has drinking and smoking history of occasional alcohol consumption. No tobacco use.. Patient has a past medical history significant for a hypertension, prior right leg vein stripping. The patient denies a history of deep venous thrombus or pulmonary embolus. See separate history and physical for medication list. Prior stripping of right great saphenous vein approximately 15 years ago. Current use of compression stockings. After review of nurse notes, history and physical exam I discussed at length the pathophysiology of venous hypertension and possible treatments, therapies and strategies available. We discussed at length the importance of elevating the lower extremities above the level of the heart, increased physical activity and compression stocking use. Ultrasound venous reflux study performed today was discussed at length with the patient. The report demonstrates markedly dilated and incompetent left great saphenous and small saphenous veins. Bilateral cardroom drawing runner veins and incompetent branch saphenous varicosities. PHYSICAL EXAM: The right leg demonstrates dilated, incompetent branch saphenous varicosities, a few spider veins, no ulceration, no edema, no skin discoloration. The left leg demonstrates marked varicosities, several spider veins, no ulceration, no edema, no skin discoloration. Both thighs, legs and feet were symmetrically warm to the touch. Good posterior tibial and dorsalis pedis pulses were present bilaterally. IMPRESSION: 1. Markedly dilated and incompetent left lower extremity venous insufficiency 2. Bilateral lower extremity dilated, incompetent branch saphenous veins 3. No lower extremity subcutaneous edema 4. No flow significant arterial disease 5. CEAP: C2, EC, AP, AK PLAN: 1. Continued use of compression stockings 2. Elevated legs and increased physical activity symptomatic relief 3. Endovenous laser ablation of left great saphenous left small saphenous veins, left and right cardroom drawing runner veins. 4. Microfoam chemical ablation of dilated, incompetent branch saphenous varicosities within right and left lower extremities Nurse notes, history and physical were reviewed and confirmed, see attached forms. The nurse was present throughout the physical exam and consultation Dictated by: Hayden Perla M.D. on 12/01/2021 at 08:06 Approved by: Hayden Perla M.D. on 12/01/2021 at 09:12 Normal [facility] VC VENOUS REFLUX MICHELLE LMTon 1 VC VENOUS REFLUX MICHELLE LMT Patient: CIELO RAY Exam Date: 11/30/2021 : 1965 Gender:F Ordering : DR KEILA DE LA FUENTE M.D. Admission #: [id number] Family : Order #: [id number] CLICK HERE TO VIEW EXAM RADIOLOGY REPORT PROCEDURE: VEIN CENTER ULTRASOUND VENOUS REFLUX BILATERAL LIMTED COMPARISON: VC VENOUS REFLUX MICHELLE LMT, 08/12/2020. INDICATIONS: Pain co-occurrent and due to varicose veins of bilateral legs I83.813 TECHNIQUE: Duplex imaging of the lower extremity to assess the deep and superficial venous system for the presence of deep or superficial venous incompetence and to document the location and severity of disease. The study includes evaluation of the great saphenous vein (GSV), anterior accessory saphenous vein (AASV) and small saphenous vein (SSV). Patient scanned in reverse Trendelenburg and standing. FINDINGS: RIGHT LOWER EXTREMITY: Saphenofemoral Junction Reflux: Yes 6.9mm 1.1 sec GSV: Diam (mm) Reflux/ Time (sec) Proximal Thigh Yes Mid Thigh N/A Distal Thigh N/A Prox Calf N/A Mid Calf N/A Saphenopopliteal Junction Reflux: 5.5mm Yes 0.9 SSV: Proximal Calf 3.6 Yes 0.3 Mid Calf 3.9 Yes 0.3 AASV: Not present Proximal Thigh Mid Thigh Distal Thigh Thrombi: No acute or chronic thrombus. Compressibility: Normal. Flow: Deep venous reflux. Preforator: Mid medial lower leg perf measures 2.2 mm with 0.4s reflux. Mid/med thigh perf measures 2.5 mm with 1.2s reflux. Prox/posterior calf 3.0mm with 3.7s. Tech Note: Previously treated GSV. Incomptent varicose vein associated with cardroom drawing runner distal thigh measures 6.2 mm with 2.6s reflux. Varicosity mid/medial lower leg measures 2.7 mm with 0.3s reflux. Lateral knee varicose vein measures 4.2 mm with 0.7s reflux. LEFT LOWER EXTREMITY: Saphenofemoral Junction Reflux: Yes 14.1 mm 1.6 sec GSV: Diam (mm) Reflux/Time (sec) Proximal Thigh 13.7 Yes 2.2 Mid Thigh 10.1 Yes 4.3 Distal Thigh 9.8 Yes 4.8 Prox Calf 7.8 Yes 2.0 Mid Calf 5.0 Yes 1.3 Saphenopopliteal Junction Relux: 6.1 mm Yes 0.5 SSV: Proximal Calf 5.6 Yes 1.1 Mid Calf 3.5 Yes 0.2 AASV: Proximal Thigh 3.6 No Mid Thigh 2.1 No Distal Thigh Thrombi: No acute or chronic thrombus. Compressibility: Normal. Flow: Deep venous reflux. Accounts Specialist: Two medial/distal lower leg perfs measures 3.9 mm with 2.8s reflux. Prox calf posterior 4.8 mm with 0.9s reflux. Mid/med thigh 3.9 mm, 1.6s reflux. Tech Note: Incomptent GSV and SSV. Varicose vein mid medial lower leg measures 4.2 mm with 1.1s reflux. Mid medial lower leg varicosity measures 9.4 mm with 2.9s reflux. Varicose vein prox posterior calf measures 4.7 mm with 3.3s reflux. Distal medial thigh varicosity measures 10.9mm with 0.8s reflux. Mid medial thigh varicose vein measures 11.4 mm with 1.8s reflux. CONCLUSION: 1. Dilated, incompetent left great saphenous and small saphenous veins. 2. Dilated, incompetent cardroom drawing runner veins and branch saphenous varicosities bilaterally. 3. Consultation for endovenous ablation is recommended. Dictated by: Hayden Perla M.D. on 11/30/2021 at 15:51 Approved by: Hayden Perla M.D. on 11/30/2021 at 15:53 Normal [facility] INSULINon 10-09-2021 Insulin 11.9 uIU/mL Normal 2.6-24.9 [facility] Comment on above: Performed By: #### I NSULIN ####[facility] [address] [place], [place] [address]OhHong Gomez T4, T3U, FTI LABCORPon 10-09 Free Thyroxine Index 2.1 Normal 1.2-4.9 [facility] Comment on above: Performed By: #### T HYLC ####[facility] [address] [place], [place] [address]PqHong Gomez T3 Uptake 29 % Normal 24-39 [facility] Comment on above: Performed By: #### T HYLC ####[facility] [address] [place] [id number] Gomez T4 [Mass/Vol] 7.4 ug/dL Normal 4.5-12.0 [facility] Comment on above: Performed By: #### T HYLC ####[facility] [address] [place] [id number]. Wilbert Gomez GLYCOHEMOGLOBIN A1Con 2021 ADA RECOMMENDATION SEE BELOW Normal [facility] Comment on above: Result Comment: ADA RECOMMENDED LIMIT 4.0 - 6.0 ADA THERAPEUTIC TARGET < 7.0 ACTION SUGGESTED > 7.0 Performed By: #### A 1C ####[facility] [address] [place] [address]Dr. Wilbert Gomez Glucose [Mass/Vol] 111 mg/dL Normal [facility] Comment on above: Performed By: #### A 1C ####[facility] [address] [place] [address]DrHong Gomez HbA1c (Bld) [Mass fraction] 5.5 % Normal 4.5-6.2 [facility] Comment on above: Performed By: #### A 1C ####[facility] [address] [place] [id number]. Wilbert Gomez IRONon 10-08-2021 Iron [Mass/Vol] 67.0 ug/dL Normal 50.0-170.0 [facility] Comment on above: Performed By: #### I SOLA #### [facility] [address] [place], [place] [address] Dr. Wilbert Gomez LIPID PROFILEon 10-08-2021 CHOL-HDL RATIO NORM SEE BELOW Normal [facility] Comment on above: Result Comment: 3.3 - 4.4 LOW RISK 4.4 - 7.1 AVERAGE RISK 7.1 - 11.0 MODERATE RISK >11.0 HIGH RISK Performed By: #### L IPID, TSH, CMP ####[facility] [address] [place] [id number]. Wilbert Gomez Cholesterol [Mass/Vol] 205 mg/dL Critically high <=200 [facility] Comment on above: Performed By: #### L IPID, TSH, CMP ####[facility] [address] [place] [id number]. Wilbert Gomez Cholesterol in HDL [Mass/Vol] 81 mg/dL Critically high 40-60 [facility] Comment on above: Performed By: #### L IPID, TSH, CMP ####[facility] [address] [place] [id number]. Wilbert Gomez Cholesterol in LDL [Mass/Vol] 108.0 mg/dL Normal [facility] Comment on above: Performed By: #### L IPID, TSH, CMP ####[facility] [address] [place] [address]Dr. Wilbert Gomez Cholesterol.total/Ch olesterol in HDL [Mass ratio] 2.5 {ratio} Normal [facility] Comment on above: Performed By: #### L IPID, TSH, CMP ####[facility] [address] [place] [address]Dr. Justinegonzalo Jason HDL NORMAL > or = 60 mg/dl - LO W CARDIOVASCULAR RISK <40 mg/dl - HIGH CARDIOVASCULAR RISK Normal [facility] Comment on above: Performed By: #### L IPID, TSH, CMP ####[facility] [address] [place] [id number]. Justinegonzalo Gomez LDL CALC NORMAL SEE BELOW Normal [facility] Comment on above: Result Comment: <100 mg/dl OPTIMAL 100 - 129 mg/dl NEAR OR ABOVE OPTIMAL 130 - 159 mg/dl BORDERLINE HIGH 160 - 189 mg/dl HIGH >190 mg/dl VERY HIGH Performed By: #### L IPID, TSH, CMP ####[facility] [address] [place] [id number]. Wilbert Gomez Triglyceride [Mass/Vol] 80 mg/dL Normal <=150 [facility] Comment on above: Performed By: #### L IPID, TSH, CMP ####[facility] [address] [place] [id number]. Wilbert Gomez VLDL CALC 16.0 mg/dL Normal [facility] Comment on above: Performed By: #### L IPID, TSH, CMP ####[facility] [address] [place] [address]Dr. Wilbert Gomez PROF 14(COMP METB)on 022 Albumin [Mass/Vol] 3.6 g/dL Normal 3.4-5.0 [facility] Comment on above: Performed By: #### L IPID, TSH, CMP ####[facility] [address] [place] [address]Dr. Wilbert Gomez Albumin/Globulin [Mass ratio] 1.0 {ratio} Normal [facility] Comment on above: Performed By: #### L IPID, TSH, CMP ####[facility] [address] [place], [place] [address]Dr. Wilbert Gomez ALP [Catalytic activity/Vol] 86 U/L Normal 46-116 [facility] Comment on above: Performed By: #### L IPID, TSH, CMP ####[facility] [address] [place], [place] [address]Dr. Wilbert Gomez ALT [Catalytic activity/Vol] 27 U/L Normal 14-59 [facility] Comment on above: Performed By: #### L IPID, TSH, CMP ####[facility] [address] [place], [place] [address]Dr. Wilbert Gomez Anion gap [Moles/Vol] 12.1 mmol/L Normal [facility] Comment on above: Performed By: #### L IPID, TSH, CMP ####[facility] [address] [place] [address]Dr. Wilbert Gomez AST [Catalytic activity/Vol] 23 U/L Normal 15-37 [facility] Comment on above: Performed By: #### L IPID, TSH, CMP ####[facility] [address] [place] [address]Dr. Wilbert Gomez Bilirubin [Mass/Vol] 0.6 mg/dL Normal 0.2-1.0 [facility] Comment on above: Performed By: #### L IPID, TSH, CMP ####[facility] [address] [place], [place] [address]Dr. Wilbert Gomez Calcium [Mass/Vol] 8.7 mg/dL Normal 8.5-10.1 [facility] Comment on above: Performed By: #### L IPID, TSH, CMP ####[facility] [address] [place], [place] [address]Dr. Wilbert Gomez Chloride [Moles/Vol] 104 mmol/L Normal 98-107 [facility] Comment on above: Performed By: #### L IPID, TSH, CMP ####[facility] [address] [place], [place] [address]Dr. Wilbert Gomez CO2 [Moles/Vol] 26.8 mmol/L Normal 21.0-32.0 [facility] Comment on above: Performed By: #### L IPID, TSH, CMP ####[facility] [address] [place], [place] [address]Dr. Wilbert Gomez Creatinine [Mass/Vol] 0.85 mg/dL Normal 0.55-1.02 [facility] Comment on above: Performed By: #### L IPID, TSH, CMP ####[facility] [address] [place], [place] [address]Dr. Wilbert Gomez EGFR-AF GABONESE >60 Normal >=60 [facility] Comment on above: Performed By: #### L IPID, TSH, CMP ####[facility] [address] [place], [place] [address]Dr. Wilbert Gomez EGFR-NON AF GABONESE >60 Normal >=60 [facility] Comment on above: Performed By: #### L IPID, TSH, CMP ####[facility] [address] [place], [place] [address]Dr. Wilbert Gomez Globulin (S) [Mass/Vol] 3.7 g/dL Normal [facility] Comment on above: Performed By: #### L IPID, TSH, CMP ####[facility] [address] [place], [place] [address]Dr. Wilbert Gomez Glucose [Mass/Vol] 92 mg/dL Normal 74-106 [facility] Comment on above: Performed By: #### L IPID, TSH, CMP ####[facility] [address] [place] [address]Dr. Wilbert Gomez Potassium [Moles/Vol] 3.9 mmol/L Normal 3.5-5.1 [facility] Comment on above: Performed By: #### L IPID, TSH, CMP ####[facility] [address] [place], [place] [address]Dr. Wilbert Gomez Protein [Mass/Vol] 7.3 g/dL Normal 6.4-8.2 [facility] Comment on above: Performed By: #### L IPID, TSH, CMP ####[facility] [address] [place], [place] [address]Dr. Wilbert Gomez Sodium [Moles/Vol] 139 mmol/L Normal 136-145 [facility] Comment on above: Performed By: #### L IPID, TSH, CMP ####[facility] [address] [place], [place] [address]Dr. Wilbert Gomez Urea nitrogen [Mass/Vol] 10.0 mg/dL Normal 7.0-18.0 [facility] Comment on above: Performed By: #### L IPID, TSH, CMP ####[facility] [address] [place], [place] [address]Dr. Wilbert Gomez Urea nitrogen/Creatinine [Mass ratio] 11.8 mg/mg Normal [facility] Comment on above: Performed By: #### L IPID, TSH, CMP ####[facility] [address] [place], [place] [address]Dr. Wilbert Gomez TSHon 10-08-2021 TSH 0.731 uIU/mL Normal 0.358-3.740 [facility] Comment on above: Performed By: #### L IPID, TSH, CMP ####[facility] [address] [place], [place] [address]Dr. Wilbert Gomez ALBUMINon 07-30-2021 Albumin [Mass/Vol] 3.8 g/dL Normal 3.4-5.0 [facility] Comment on above: Performed By: #### C JENELLE, ALT, CRP, ALB #### [facility] [address] [place] [address] [address] Wilbert Gomez CBC AUTO DIFFon 07-30-2021 BASO # 0.0 103/ul Normal 0.0-0.1 [facility] Comment on above: Performed By: #### C BC #### [facility] [address] [place] [address] [address] Wilbert Gomez Basophils/100 WBC (Bld) 0.6 % Normal 0.2-2.0 [facility] Comment on above: Performed By: #### C BC #### [facility] [address] [place] [address] [address] Wilbert Gomez EO # 0.2 103/ul Normal 0.0-0.7 [facility] Comment on above: Performed By: #### C BC #### [facility] [address] [place] [address] Dr. Wilbert Gomez Eosinophils/100 WBC (Bld) 4.1 % Normal 0.9-7.0 [facility] Comment on above: Performed By: #### C BC #### [facility] [address] [place] [address] [address] Wilbert Gomez Erythrocyte distribution width (RBC) [Ratio] 14.0 % Normal 11.0-15.0 [facility] Comment on above: Performed By: #### C BC #### [facility] [address] [place] [address] Dr. Wilbert Gomez Hematocrit (Bld) [Volume fraction] 37.4 % Normal 36.0-48.0 [facility] Comment on above: Performed By: #### C BC #### [facility] [address] [place] [address] [address] Wilbert Gomez Hemoglobin (Bld) [Mass/Vol] 12.2 g/dL Normal 12.0-16.0 [facility] Comment on above: Performed By: #### C BC #### [facility] [address] [place] [address] [address] Wilbert Gomez IG # 0.01 10e3/ul Normal 0.00-0.03 [facility] Comment on above: Performed By: #### C BC #### [facility] [address] [place] [address] Dr. Wilbert Gomez IG % 0.2 % Normal 0.0-0.5 [facility] Comment on above: Performed By: #### C BC #### [facility] [address] [place] [address] Dr. Wilbert Gomez LYMPH # 1.6 103/ul Normal 1.2-3.8 [facility] Comment on above: Performed By: #### C BC #### [facility] [address] [place] [address] Dr. Wilbert Gomez Lymphocytes/100 WBC (Bld) 33.4 % Normal 20.5-60.0 [facility] Comment on above: Performed By: #### C BC #### [facility] [address] [place] [address] Dr. Wilbert Gomez MANUAL DIFF REQ NO Normal [facility] Comment on above: Performed By: #### C BC #### [facility] [address] [place] [address] Dr. Wilbert Gomez MCH (RBC) [Entitic mass] 31.9 pg Normal 26.7-34.0 [facility] Comment on above: Performed By: #### C BC #### [facility] [address] [place] [address] Dr. Wilbert Gomez MCHC (RBC) [Mass/Vol] 32.6 g/dL Normal 29.9-35.2 [facility] Comment on above: Performed By: #### C BC #### [facility] [address] [place] [address] Dr. Wilbert Gomez MCV (RBC) [Entitic vol] 97.7 fL Normal 81.0-99.0 [facility] Comment on above: Performed By: #### C BC #### [facility] [address] [place] [address] Dr. Wilbert Gomez MONO # 0.5 103/ul Normal 0.3-0.8 [facility] Comment on above: Performed By: #### C BC #### [facility] [address] [place] [address] Dr. Wilbert Gomez Monocytes/100 WBC (Bld) 11.0 % Normal 1.7-12.0 [facility] Comment on above: Performed By: #### C BC #### [facility] [address] [place] [address] Dr. Wilbert Gomez NEUT # 2.4 103/ul Normal 1.4-6.5 [facility] Comment on above: Performed By: #### C BC #### [facility] [address] [place] [address] Dr. Wilbert Gomez Neutrophils/100 WBC (Bld) 50.7 % Normal 43.0-75.0 [facility] Comment on above: Performed By: #### C BC #### [facility] [address] [place] [address] Dr. Wilbert Gomez Platelet mean volume (Bld) [Entitic vol] 8.8 fL Critically low 9.5-13.5 [facility] Comment on above: Performed By: #### C BC #### [facility] [address] [place] [address] Dr. Wilbert Gomez PLT 228 103/ul Normal 150-450 [facility] Comment on above: Performed By: #### C BC #### [facility] [address] [place] [address] Dr. Wilbert Gomez RBC 3.83 106/ul Critically low 4.20-5.40 [facility] Comment on above: Performed By: #### C BC #### [facility] [address] [place] [address] Dr. Wilbert Gomez WBC 4.8 103/ul Normal 4.0-11.0 [facility] Comment on above: Performed By: #### C BC #### [facility] [address] [place] [address] Dr. Wilbert Gomez CREATININEon 07-30-2021 Creatinine [Mass/Vol] 0.87 mg/dL Normal 0.55-1.02 [facility] Comment on above: Performed By: #### C JENELLE, ALT, CRP, ALB #### [facility] [address] [place] [address] [address] Wilbert Gomez EGFR-AF GABONESE >60 Normal >=60 [facility] Comment on above: Performed By: #### C JENELLE, ALT, CRP, ALB #### [facility] [address] [place] [address] [address] Wilbert Gomez EGFR-NON AF GABONESE >60 Normal >=60 [facility] Comment on above: Performed By: #### C JENELLE, ALT, CRP, ALB #### [facility] [address] [place] [address] [address] Wilbert Gomez CRPon 07-30-2021 CRP 1.5 mg/dL Critically high <=1.0 [facility] Comment on above: Performed By: #### C JENELLE, ALT, CRP, ALB #### [facility] [address] [place] [address] [address] Wilbert Gomez [facility] mm/hr Normal <=30 [facility] Comment on above: Performed By: #### S EDR #### [facility] [address] [place] [address] [address] Wilbert Gomez SGPTon 07-30-2021 ALT [Catalytic activity/Vol] 38 U/L Normal 14-59 [facility] Comment on above: Performed By: #### C JENELLE, ALT, CRP, ALB #### [facility] [address] [place] [address] [address] Wilbert Gomez MG MAMM SCREEN 3D MICHELLE CADon 07-16-2021 MG MAMM SCREEN 3D MICHELLE CAD Patient: CIELO RAY Exam Date: 07/16/2021 : 1965 Gender:F Ordering : [facility] Admission #: [id number] Family : Order #: [id number] CLICK HERE TO VIEW EXAM RADIOLOGY REPORT PROCEDURE: MAMMOGRAM SCREENING 3D BILATERAL CAD COMPARISON: MG MAMM SCREEN MICHELLE W CAD, 06/29/2019. MG MAMM SCREEN MICHELLE W CAD, 05/11/2018. MG MAMM SCREEN MICHELLE W CAD, 04/12/2017. MG MAMM SCREEN 3D MICHELLE CAD, 07/01/2020. INDICATIONS: Screening mammography Calculator Name NCI Breast Cancer Risk Assessment Tool 5 Year Breast Cancer Risk 2.30% Lifetime Breast Cancer Risk 15.10% Personal Breast Cancer No Personal Ovarian Cancer No Treatments None Family Cancers Mother with breast cancer at age 55. LOCATION: [facility] BREAST COMPOSITION: Heterogeneously dense,which may obscure small masses. FINDINGS: DIAGNOSTIC CATEGORY 1--NEGATIVE. RIGHT BREAST: No significant suspicious finding. No significant change has occurred. LEFT BREAST: No significant suspicious finding. No significant change has occurred. RECOMMENDATIONS: ROUTINE MAMMOGRAM AND CLINICAL EVALUATION IN 12 MONTHS. PLEASE NOTE: A NORMAL MAMMOGRAM DOES NOT EXCLUDE THE POSSIBILITY OF BREAST CANCER. A CLINICALLY SUSPICIOUS PALPABLE LUMP SHOULD BE BIOPSIED. Dictated by: Hayden Perla M.D. on 07/17/2021 at 09:45 Approved by: Hayden Perla M.D. on 07/17/2021 at 09:49 Normal [facility] Encounters Encounter Date Encounter Type Care Provider Facility Start: 06-22-2022 End: 06-22-2022 ambulatory Esdras Bonilla Facility:[facility] Start: 06-02-2022 ambulatory MARILYN DE Facility: [facility] Start: 02-02-2022 End: 02-03-2022 ambulatory MARILYN DE Facility:[facility] Start: 01-26-2022 End: 01-27-2022 ambulatory MARILYN DE Facility:[facility] Start: 01-14-2022 End: 01-15-2022 ambulatory MARILYN DE Facility:[facility] Start: 12-29-2021 End: 12-30-2021 ambulatory MARILYN DE Facility:[facility] Start: 12-22-2021 End: 12-23-2021 ambulatory MARILYN DE Facility:[facility] Start: 11-30-2021 End: 12-01-2021 ambulatory MARILYN DE Facility:[facility] Start: 10-09-2021 Encounter for genera l adult medical examination without abnormal findings MARILYN DE [facility] Start: 10-08-2021 End: 10-09-2021 ambulatory MARILYN DE Facility:[facility] Start: 10-08-2021 End: 10-09-2021 Encounter for general adult medical examination without abnormal findings MARILYN DE Facility:[facility] Start: 07-30-2021 End: 07-31-2021 ambulatory ERIKA MCCRACKEN Facility:[facility] Start: 07-16-2021 End: 07-17-2021 ambulatory MARILYN DE Facility:[facility] Payers Date Payer Category Payer Self-pay 1965 Unknown [id number] 2.16.84 [id number] 1965 Unknown [id number] 2.16.84 [id number] 1965 Unknown [id number] 2.16.84 [id number] 1965 Unknown [id number] 2.16.84 [id number] 1965 Unknown [id number] 2.16.84 [id number] 1965 Unknown [id number] 2.16.84 [id number] 1965 Unknown [id number] 2.16.84 [id number] 1965 Unknown [id number] 2.16.84 [id number] 1965 Unknown [id number] 2.16.84 [id number] 1965 Unknown [id number] 2.16.84 [id number] 1959 Unknown [id number] Unknown [id number] 2.16.8 [id number] Summary Purpose Family History No Family History Records FoundNo Family History Records Found Advance Directives No Advanced Directives Records FoundNo Advanced Directives Records Found Additional Source Comments INFORMATION SOURCE (unrecogn ized section and content) DATE CREATED AUTHOR 06/03/2022 [facility] DATE CREATED AUTHOR 'S VIVIENNEIZ ATQIAN 06/26/2022 [facility] FOR RECORDS PERTAINING TO PATIENTS WHO ARE OR HAVE BEEN ENROLLED IN A CHEMICAL DEPENDENCY/SUBSTANCEABUSE PROGRAM, SOME INFORMATION MAY BE OMITTED. This clinical summary was aggregated from multiple sources. Caution should be exercised in using it in the provision of clinical care. This summary normalizes information from multiple sources, and as a consequence, information in this document may materially change the coding, format and clinical context of patient data. In addition, data may be omitted in some cases. CLINICAL DECISIONS SHOULD BE BASED ON THE PRIMARY CLINICAL RECORDS. [facility] provides no warranty or guarantee of the accuracy or completeness of information in this document.
[2023-02-10 13:27] LABS: Basophils Absolute Auto 0.1 10^3/uL (0.0-0.1); Basophils Percent Auto 0.7 % (0.2-2.0); Eosinophils Absolute Auto 0.2 10^3/uL (0.0-0.7); Eosinophils Percent Auto 3.1 % (0.9-7.0); Hematocrit 40.8 % (36.0-48.0); Hemoglobin 12.7 g/dL (12.0-16.0); Immature Granulocytes Abs Auto 0.02 10^3/uL (0.00-0.03); Immature Granulocytes Pct Auto 0.3 % (0.0-0.5); Lymphocytes Absolute Auto 1.8 10^3/uL (1.2-3.8); Lymphocytes Percent Auto 26.8 % (20.5-60.0); Mean Corpuscular HGB Conc 31.1 g/dL (29.9-35.2); Mean Corpuscular Hemoglobin 31.1 pg (26.7-34.0); Mean Platelet Volume 8.8 fL (9.5-13.5); Monocytes Absolute Auto 0.6 10^3/uL (0.3-0.8); Monocytes Percent Auto 8.1 % (1.7-12.0); Neutrophils Absolute Auto 4.1 10^3/uL (1.4-6.5); Platelet Count 291 10^3/uL (150-450); Red Blood Count 4.08 10^6/uL (4.20-5.40); Red Cell Distribution Width 13.2 % (11.0-15.0); White Blood Count 6.8 10^3/uL (4.0-11.0)
[2023-02-10 13:55] LABS: Erythrocyte Sedimentation Rate 33 mm/hr (<=30)
[2023-02-10 14:01] LABS: Alanine Aminotransferase 29 U/L (14-59); Albumin Globulin Ratio 0.8; Albumin Level 3.3 g/dL (3.4-5.0); Alkaline Phosphatase 95 U/L (46-116); Aspartate Amino Transferase 17 U/L (15-37); Bilirubin Direct 0.1 mg/dL (0.0-0.2); Bilirubin Total 0.7 mg/dL (0.2-1.0); Estimated GFR (African America >60 (>=60); Estimated GFR (Non-African Ame >60 (>=60); Globulin 4.1 g/dL; Total Protein 7.4 g/dL (6.4-8.2)
== END 2023-02-10 13:11 | disposition home or self-care (01) ==
LOC: LAB 13:11
PROVIDERS: PCP Nurse Practitioner Family; Visit Provider Internal Medicine Rheumatology
DX: M05.79 Rheumatoid arthritis with rheumatoid factor of multiple sites without organ or systems involvement (principal)
CPT/HCPCS: 36415; 80076; 82565; 85025; 85652

== ENCOUNTER 2023-05-16 15:40 | Outpatient (OUT) | payer BC, SELFPAY ==
--- OUTSIDE RECORDS SUMMARY | 2023-05-16 15:54 | XMS_ITS | CCD ---
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] Care Unavailable AHMED, ERIKA Attending Unavailable AHMED, SARAED Admitting Unavailable AHMED, MOHNICOLASED Consulting Unavailable SANTINO, MARILYN Primary Care Unavailable SANTINO, MARILYN Attending Unavailable SANTINO, MARILYN Admitting Unavailable SANTINO, MARILYN Consulting Unavailable SANTINO, MARILYN Primary Care Unavailable SANTINO, MARILYN Primary Care Unavailable AHMED, ERIKA Attending Unavailable AHMED, SARAED Admitting Unavailable AHMED, MOHAMMED Consulting Unavailable Esdras [...] Antinuclear Abs, IFA Negative Normal . [facility] Comment on above: Result Comment: Nega tive <1:80 Borderline 1:80 Positive >1:80 ICAP nomenclature: AC-0 For more information about Hep-2 cell patterns use ANApatterns.org, the official website for the International Consensus on Antinuclear Antibody (GERONIMO) Patterns (ICAP). Performed at: [address] [id number] Data Visualization Developer: Charlie Arevalo PhD, Phone: [phone] Performed By: #### A DNA, C4, GERONIMO, CH50, C3, LOZOYA #### [facility] , Anti-Lozoya Antibodieson 05 Anti-Lozoya Antibodies <0.2 Normal 0.0-0.9 [facility] Comment on above: Performed By: #### A DNA, C4, GERONIMO, CH50, C3, LOZOYA #### [facility] , Anti-dsDNA(DBL)Abon 06-23-19 23 Anti-dsDNA(DBL)Ab 1 Normal 0-9 [facility] Comment on above: Result Comment: Nega tive <5 Equivocal 5 - 9 Positive >9 Performed at: [address] [id number] Data Visualization Developer: Charlie Arevalo PhD, Phone: [phone] PERFORMED BY: [address] [place] [address] PATHOLOGIST CARVING MACHINE OPERATOR EULALIA OLSEN M.D. Performed By: #### A DNA, C4, GERONIMO, CH50, C3, LOZOYA #### [facility] , C-Reactive Proteinon 023 C-Reactive Protein 1.1 mg/dL High 0.0-0.5 [facility] Comment on above: Result Comment: PERF ORMED BY: [address] [place] [address] PATHOLOGIST CARVING MACHINE OPERATOR EULALIA OLSEN M.D. Performed By: #### A DNA, C4, GERONIMO, CH50, C3, LOZOYA #### [facility] , Complement C3on 06-22-2022 Complement C3 147 mg/dL Normal 82-167 [facility] Comment on above: Result Comment: Perf ormed at: [address] [id number] Data Visualization Developer: Charlie Arevalo PhD, Phone: [phone] Performed By: #### A DNA, C4, GERONIMO, CH50, C3, LOZOYA #### [facility] , Complement C4on 06-22-2022 Complement C4 33 mg/dL Normal 12-38 [facility] Comment on above: Performed By: #### A DNA, C4, GERONIMO, CH50, C3, LOZOYA #### [facility] , Complement Total (CH50)on Complement Total (CH50) 55 Normal >41 [facility] Comment on above: Result Comment: Age [...] determine out of range values. Performed at: [address] [id number] Data Visualization Developer: Charlie Arevalo PhD, Phone: [phone] PERFORMED BY: [place] [address] PATHOLOGIST CARVING MACHINE OPERATOR EULALIA OLSEN M.D. Performed By: #### A DNA, C4, GERONIMO, CH50, C3, LOZOYA #### [facility] , Complete Blood Count Auto Di ffon 06-22-2022 Basophils (Bld) [#/Vol] 0.1 10*3/uL Normal 0.0-0.2 [facility] Comment on above: Performed By: #### H BCAB, HBSAG, HCV RX PCR, HBSAB #### [facility] , #### ADDONUAPLUS, ESR, CBC, CMP, CRP #### [facility] [address] [place] [address] Basophils/100 WBC (Bld) 0.7 % Normal . [facility] Comment on above: Performed By: #### H BCAB, HBSAG, HCV RX PCR, HBSAB #### [facility] , #### ADDONUAPLUS, ESR, CBC, CMP, CRP #### [address] Eosinophils (Bld) [#/Vol] 0.3 10*3/uL Normal 0.0-0.45 [facility] Comment on above: Performed By: #### H BCAB, HBSAG, HCV RX PCR, HBSAB #### [facility] , #### ADDONUAPLUS, ESR, CBC, CMP, CRP #### [address] Eosinophils/100 WBC (Bld) 3.8 % Normal . [facility] Comment on above: Performed By: #### H BCAB, HBSAG, HCV RX PCR, HBSAB #### [facility] , #### ADDONUAPLUS, ESR, CBC, CMP, CRP #### [address] Erythrocyte distribution width (RBC) [Ratio] 13.7 % Normal 11.9-15.3 [facility] Comment on above: Performed By: #### H BCAB, HBSAG, HCV RX PCR, HBSAB #### [facility] , #### ADDONUAPLUS, ESR, CBC, CMP, CRP #### [address] Hematocrit (Bld) [Volume fraction] 39.4 % Normal 34.0-46.4 [facility] Comment on above: Performed By: #### H BCAB, HBSAG, HCV RX PCR, HBSAB #### [facility] , #### ADDONUAPLUS, ESR, CBC, CMP, CRP #### [address] Hemoglobin (Bld) [Mass/Vol] 13.0 g/dL Normal 11.8-15.4 [facility] Comment on above: Performed By: #### H BCAB, HBSAG, HCV RX PCR, HBSAB #### [facility] , #### ADDONUAPLUS, ESR, CBC, CMP, CRP #### [address] Lymphocytes (Bld) [#/Vol] 2.5 10*3/uL Normal 1.00-4.8 [facility] Comment on above: Performed By: #### H BCAB, HBSAG, HCV RX PCR, HBSAB #### [facility] , #### ADDONUAPLUS, ESR, CBC, CMP, CRP #### [address] Lymphocytes/100 WBC (Bld) 35.4 % Normal . [facility] Comment on above: Performed By: #### H BCAB, HBSAG, HCV RX PCR, HBSAB #### [facility] , #### ADDONUAPLUS, ESR, CBC, CMP, CRP #### [address] MCH (RBC) [Entitic mass] 31.3 pg Normal 24.7-34.3 [facility] Comment on above: Performed By: #### H BCAB, HBSAG, HCV RX PCR, HBSAB #### [facility] , #### ADDONUAPLUS, ESR, CBC, CMP, CRP #### [address] MCV (RBC) [Entitic vol] 94.7 fL Normal 80-100 [facility] Comment on above: Performed By: #### H BCAB, HBSAG, HCV RX PCR, HBSAB #### [facility] , #### ADDONUAPLUS, ESR, CBC, CMP, CRP #### [address] Mean Corpuscular HGB Conc 33.1 g/dL Normal 32.0-35.0 [facility] Comment on above: Performed By: #### H BCAB, HBSAG, HCV RX PCR, HBSAB #### [facility] , #### ADDONUAPLUS, ESR, CBC, CMP, CRP #### [address] Monocytes (Bld) [#/Vol] 0.3 10*3/uL Normal 0.0-0.8 [facility] Comment on above: Performed By: #### H BCAB, HBSAG, HCV RX PCR, HBSAB #### [facility] , #### ADDONUAPLUS, ESR, CBC, CMP, CRP #### [address] Monocytes/100 WBC (Bld) 4.7 % Normal . [facility] Comment on above: Performed By: #### H BCAB, HBSAG, HCV RX PCR, HBSAB #### [facility] , #### ADDONUAPLUS, ESR, CBC, CMP, CRP #### [address] Neutrophils (Bld) [#/Vol] 3.9 10*3/uL Normal 1.8-7.7 [facility] Comment on above: Performed By: #### H BCAB, HBSAG, HCV RX PCR, HBSAB #### [facility] , #### ADDONUAPLUS, ESR, CBC, CMP, CRP #### [address] Neutrophils/100 WBC (Bld) 55.4 % Normal . [facility] Comment on above: Performed By: #### H BCAB, HBSAG, HCV RX PCR, HBSAB #### [facility] , #### ADDONUAPLUS, ESR, CBC, CMP, CRP #### [address] NRBC% 0.0 /100{WBC} Normal 0-0.5 [facility] Comment on above: Performed By: #### H BCAB, HBSAG, HCV RX PCR, HBSAB #### [facility] , #### ADDONUAPLUS, ESR, CBC, CMP, CRP #### [address] Platelet mean volume (Bld) [Entitic vol] 7.5 fL Normal 6.3-10.7 [facility] Comment on above: Performed By: #### H BCAB, HBSAG, HCV RX PCR, HBSAB #### [facility] , #### ADDONUAPLUS, ESR, CBC, CMP, CRP #### [facility] [address] Platelets (Bld) [#/Vol] 299 10*3/uL Normal 150-450 [facility] Comment on above: Performed By: #### H BCAB, HBSAG, HCV RX PCR, HBSAB #### [facility] , #### ADDONUAPLUS, ESR, CBC, CMP, CRP #### [facility] [address] RBC (Bld) [#/Vol] 4.17 10*6/uL Normal 3.60-5.00 [facility] Comment on above: Performed By: #### H BCAB, HBSAG, HCV RX PCR, HBSAB #### [facility] , #### ADDONUAPLUS, ESR, CBC, CMP, CRP #### [facility] [address] WBC (Bld) [#/Vol] 7.1 10*3/uL Normal 3.8-11.6 [facility] Comment on above: Performed By: #### H BCAB, HBSAG, HCV RX PCR, HBSAB #### [facility] , #### ADDONUAPLUS, ESR, CBC, CMP, CRP #### [facility] [address] Comprehensive Metabolic Pane darshan 06-22-2022 Albumin [Mass/Vol] 4.4 g/dL Normal 3.5-5.7 [facility] Comment on above: Performed By: #### A DNA, C4, GERONIMO, CH50, C3, LOZOYA #### [facility] , Albumin/Globulin [Mass ratio] 1.6 {ratio} Normal [facility] Comment on above: Performed By: #### A DNA, C4, GERONIMO, CH50, C3, LOZOYA #### [facility] , ALP [Catalytic activity/Vol] 78 U/L Normal 34-104 [facility] Comment on above: Performed By: #### A DNA, C4, GERONIMO, CH50, C3, LOZOYA #### [facility] , ALT [Catalytic activity/Vol] 21 U/L Normal 7-52 [facility] Comment on above: Performed By: #### A DNA, C4, GERONIMO, CH50, C3, LOZOYA #### [facility] , Anion gap [Moles/Vol] 12.9 mmol/L Normal 6.0-15.0 [facility] Comment on above: Performed By: #### A DNA, C4, GERONIMO, CH50, C3, LOZOYA #### [facility] , AST [Catalytic activity/Vol] 24 U/L Normal 13-39 [facility] Comment on above: Performed By: #### A DNA, C4, GERONIMO, CH50, C3, LOZOYA #### [facility] , Bilirubin [Mass/Vol] 0.9 mg/dL Normal 0.3-1.0 [facility] Comment on above: Performed By: #### A DNA, C4, GERONIMO, CH50, C3, LOZOYA #### [facility] , Calcium [Mass/Vol] 9.0 mg/dL Normal 8.6-10.3 [facility] Comment on above: Performed By: #### A DNA, C4, GERONIMO, CH50, C3, LOZOYA #### [facility] , Chloride [Moles/Vol] 106 mmol/L Normal 98-107 [facility] Comment on above: Performed By: #### A DNA, C4, GERONIMO, CH50, C3, LOZOYA #### [facility] , CO2 [Moles/Vol] 25.2 mmol/L Normal 21.0-31.0 [facility] Comment on above: Performed By: #### A DNA, C4, GERONIMO, CH50, C3, LOZOYA #### [facility] , Creatinine [Mass/Vol] 0.79 mg/dL Normal 0.60-1.20 [facility] Comment on above: Performed By: #### A DNA, C4, GERONIMO, CH50, C3, LOZOYA #### [facility] , GFR/1.73 sq M.predicted MDRD (S/P/Bld) [Vol rate/Area] mL/min/{1.73_m2} Normal [facility] Comment on above: Performed By: #### A DNA, C4, GERONIMO, CH50, C3, LOZOAY #### [facility] , Globulin (S) [Mass/Vol] 2.8 g/dL Normal [facility] Comment on above: Performed By: #### A DNA, C4, GERONIMO, CH50, C3, LOZOYA #### [facility] , Glucose [Mass/Vol] 97 mg/dL Normal 70-100 [facility] Comment on above: Result Comment: [place] Glucose Reference Range is dependent on time and content of last meal. Glucose of more than 200 mg/dL in a nonstressed, ambulatory subject supports the diagnosis of Diabetes Mellitus. ADA recommended reference range Performed By: #### A DNA, C4, GERONIMO, CH50, C3, LOZOYA #### [facility] , Potassium [Moles/Vol] 4.1 mmol/L Normal 3.5-5.1 [facility] Comment on above: Performed By: #### A DNA, C4, GERONIMO, CH50, C3, LOZOYA #### [facility] , Protein [Mass/Vol] 7.2 g/dL Normal 6.4-8.9 [facility] Comment on above: Performed By: #### A DNA, C4, GERONIMO, CH50, C3, LOZOYA #### [facility] , Sodium [Moles/Vol] 140 mmol/L Normal 136-145 [facility] Comment on above: Performed By: #### A DNA, C4, GERONIMO, CH50, C3, LOZOYA #### [facility] , Urea nitrogen [Mass/Vol] 12 mg/dL Normal 7-25 [facility] Comment on above: Performed By: #### A DNA, C4, GERONIMO, CH50, C3, LOZOYA #### [facility] , Dipstick and Microscopicon 0 06-22-2022 Appearance (U) Clear Normal Clear [facility] Comment on above: Order Comment: Name Collection Type:: Clean-Voided Midstream Performed By: #### H BCAB, HBSAG, HCV RX PCR, HBSAB #### [facility] , #### ADDONUAPLUS, ESR, CBC, CMP, CRP #### [facility] [address] [place] [address] Bacteria,Urine 1+ High None Seen [facility] Comment on above: Order Comment: Name Collection Type:: Clean-Voided Midstream Performed By: #### H BCAB, HBSAG, HCV RX PCR, HBSAB #### [facility] , #### ADDONUAPLUS, ESR, CBC, CMP, CRP #### [facility] [address] [place] [address] [place] Bilirubin,Urine Negative Normal Negative [facility] Comment on above: Order Comment: Name Collection Type:: Clean-Voided Midstream Performed By: #### H BCAB, HBSAG, HCV RX PCR, HBSAB #### [facility] , #### ADDONUAPLUS, ESR, CBC, CMP, CRP #### [facility] [address] [place] [address] [place] Color (U) Yellow Normal Yellow [facility] Comment on above: Order Comment: Name Collection Type:: Clean-Voided Midstream Performed By: #### H BCAB, HBSAG, HCV RX PCR, HBSAB #### [facility] , #### ADDONUAPLUS, ESR, CBC, CMP, CRP #### [facility] [address] Glucose Ql (U) Normal Normal Normal [facility] Comment on above: Order Comment: Name Collection Type:: Clean-Voided Midstream Performed By: #### H BCAB, HBSAG, HCV RX PCR, HBSAB #### [facility] , #### ADDONUAPLUS, ESR, CBC, CMP, CRP #### [address] Hyaline Casts,Urine 0-8 Normal 0-8 [facility] Comment on above: Order Comment: Name Collection Type:: Clean-Voided Midstream Result Comment: PERF ORMED BY: [place] [address] PATHOLOGIST CARVING MACHINE OPERATOR EULALIA OLSEN M.D. Performed By: #### H BCAB, HBSAG, HCV RX PCR, HBSAB #### [facility] , #### ADDONUAPLUS, ESR, CBC, CMP, CRP #### [address] Ketones Ql (U) Negative Normal Negative [facility] Comment on above: Order Comment: Name Collection Type:: Clean-Voided Midstream Performed By: #### H BCAB, HBSAG, HCV RX PCR, HBSAB #### [facility] , #### ADDONUAPLUS, ESR, CBC, CMP, CRP #### [address] Leukocyte esterase Test strip Ql (U) Negative Normal Negative [facility] Comment on above: Order Comment: Name Collection Type:: Clean-Voided Midstream Performed By: #### H BCAB, HBSAG, HCV RX PCR, HBSAB #### [facility] , #### ADDONUAPLUS, ESR, CBC, CMP, CRP #### [address] Nitrite,Urine Negative Normal Negative [facility] Comment on above: Order Comment: Name Collection Type:: Clean-Voided Midstream Performed By: #### H BCAB, HBSAG, HCV RX PCR, HBSAB #### [facility] , #### ADDONUAPLUS, ESR, CBC, CMP, CRP #### [facility] [address] [place] [address] Occult Blood,Urine Negative Normal Negative [facility] Comment on above: Order Comment: Name Collection Type:: Clean-Voided Midstream Performed By: #### H BCAB, HBSAG, HCV RX PCR, HBSAB #### [facility] , #### ADDONUAPLUS, ESR, CBC, CMP, CRP #### [facility] [address] [place] [address] pH (U) 5.5 [pH] Normal 5.0-9.0 [facility] Comment on above: Order Comment: Name Collection Type:: Clean-Voided Midstream Performed By: #### H BCAB, HBSAG, HCV RX PCR, HBSAB #### [facility] , #### ADDONUAPLUS, ESR, CBC, CMP, CRP #### [facility] [address] [place] [address] Protein,Urine Negative Normal Negative [facility] Comment on above: Order Comment: Name Collection Type:: Clean-Voided Midstream Performed By: #### H BCAB, HBSAG, HCV RX PCR, HBSAB #### [facility] , #### ADDONUAPLUS, ESR, CBC, CMP, CRP #### [facility] [address] [place] [address] RBC,Urine 3-4 Normal 0-4 [facility] Comment on above: Order Comment: Name Collection Type:: Clean-Voided Midstream Performed By: #### H BCAB, HBSAG, HCV RX PCR, HBSAB #### [facility] , #### ADDONUAPLUS, ESR, CBC, CMP, CRP #### [facility] [address] [place] [address] Specificy [place],Urine 1.021 Normal 1.001-1.030 [facility] Comment on above: Order Comment: Name Collection Type:: Clean-Voided Midstream Performed By: #### H BCAB, HBSAG, HCV RX PCR, HBSAB #### [facility] , #### ADDONUAPLUS, ESR, CBC, CMP, CRP #### [facility] [address] Squamous Epithelial Cell,Urine 5-9 High 0-2 [facility] Comment on above: Order Comment: Name Collection Type:: Clean-Voided Midstream Performed By: #### H BCAB, HBSAG, HCV RX PCR, HBSAB #### [facility] , #### ADDONUAPLUS, ESR, CBC, CMP, CRP #### [facility] [address] [place] [address] Urobilinogen,Urine Normal Normal Normal [facility] Comment on above: Order Comment: Name Collection Type:: Clean-Voided Midstream Performed By: #### H BCAB, HBSAG, HCV RX PCR, HBSAB #### [facility] , #### ADDONUAPLUS, ESR, CBC, CMP, CRP #### [facility] [address] [place] [address] WBC,Urine 5-9 High 0-4 [facility] Comment on above: Order Comment: Name Collection Type:: Clean-Voided Midstream Performed By: #### H BCAB, HBSAG, HCV RX PCR, HBSAB #### [facility] , #### ADDONUAPLUS, ESR, CBC, CMP, CRP #### [facility] [address] [place] [address] Erythrocyte Sedimentation Ra raymond 06-22-2022 ESR (Bld) [Velocity] 36 mm/h High 0-29 [facility] Comment on above: Result Comment: PERF ORMED BY: [place] [address] PATHOLOGIST CARVING MACHINE OPERATOR EULALIA OLSEN M.D. Performed By: #### A DNA, C4, GERONIMO, CH50, C3, LOZOYA #### [facility] , Hep C Ab wRfx to Qnt PCRon 0 06-22-2022 Hepatitis C Virus Antibody Non-Reactive Normal Non Reactive [facility] Comment on above: Performed By: #### A DNA, C4, GERONIMO, CH50, C3, LOZOYA #### [facility] , Interpretation Hepatitis C Normal . [facility] Comment on above: Result Comment: Not infected with HCV unless early or acute infection is suspected (which may be delayed in an immunocompromised individual), or other evidence exists to indicate HCV infection. Performed By: #### A DNA, C4, GERONIMO, CH50, C3, LOZOYA #### [facility] , Hepatitis B Core Antibodyon 06-22-2022 Hepatitis B Core Antibody Negative Normal Negative [facility] Comment on above: Result Comment: Perf ormed at: [facility] [id number] Data Visualization Developer: Charlie Arevalo PhD, Phone: [phone] Performed By: #### A DNA, C4, GERONIMO, CH50, C3, LOZOYA #### [facility] , Hepatitis B Surface Antibody on 06-22-2022 Hepatitis B Surface Antibody Non-Reactive Normal . [facility] Comment on above: Result Comment: Non Reactive: Inconsistent with immunity, less than 10 mIU/mL Reactive: Consistent with immunity, greater than 9.9 mIU/mL Performed By: #### A DNA, C4, GERONIMO, CH50, C3, LOZOYA #### [facility] , Hepatitis B Surface Antigeno n 06-22-2022 HBsAg Screen Negative Normal Negative [facility] Comment on above: Result Comment: PERF ORMED BY: [facility] [address] [place] [address] PATHOLOGIST CARVING MACHINE OPERATOR EULALIA OLSEN M.D. Performed By: #### A DNA, C4, GERONIMO, CH50, C3, LOZOYA #### [facility] , XR chest 2V*on 06-22-2022 XR chest 2V* [facility] [address] [address] XRay Report Signed Patient: Cielo Ray MR#: [id number] 66 : 1965 Acct:[id number] Age/Sex: 56 / F ADM Date: 06/22/22 Loc: X Room: Type: [facility] CLI Attending Dr: Esdras Bonilla MD Copies to: Esdras Bonilla MD Ordering Provider: Esdras Bonilla MD Date of Service: 06/22/22 XR/XR chest 2V*: IMMUNOSUPPRESSION BILAT HAND PAIN Chest 2 views CLINICAL HISTORY: Immunosuppression. Bilateral hand swelling. COMPARISON: None FINDINGS: Heart normal size. Lungs are clear. No free air. XR/XR chest 2V* IMPRESSION: NO ACUTE CARDIOPULMONARY ABNORMALITY. Impression dictated by: Cr Vitale Jr., D.O.06/22/2022 4:08 PM Dictation Location: [place] [address] Transcribed By: [facility] 06/22/22 1608 Dictated By: Cr Vitale Jr, DO 06/22/22 1608 Signed By: 06/22/22 1608 [facility] XR hand BI 2Von 06-22-2022 XR hand BI 2V [place] [id number] XRay Report Signed Patient: Cielo Ray MR#: [id number] 66 : 1965 Acct:[id number] Age/Sex: 56 / F ADM Date: 06/22/22 Loc: ICXD Room: Type: [facility] CLI Attending Dr: Esdras Bonilla MD Copies to: [...] Vitale Jr., D.O.06/22/2022 4:12 PM Dictation Location: [place] [address] Transcribed By: [facility] 06/22/22 161 Dictated By: Cr Vtiale Jr, DO 06/22/22 1608 Signed By: 06/22/22 1612 [facility] VC CONSULT FOLLOWUPon 2021 VC CONSULT FOLLOWUP Patient: JEAN PIERRE RAY. Exam Date: 02/02/2022 : 1965 Gender:F Ordering : DR KEILA DE LA FUENTE M.D. Admission #: [id number] Family : Order #: [id number] CLICK HERE TO VIEW EXAM RADIOLOGY REPORT [...] Hayden Perla M.D. on 02/02/2022 at 15:55 [facility] VC EXT VENOUS LT LIMITEDon 1 04-05-2021 VC EXT VENOUS LT LIMITED Patient: CIELO RAY Exam Date: 02/02/2022 : 1965 Gender:F Ordering : DR KEILA DE LA FUENTE M.D. Admission #: [id number] Family : Order #: [id number] CLICK HERE TO VIEW EXAM RADIOLOGY REPORT [...] Perla M.D. on 02/02/2022 at 15:51 Normal [facility] VC ENDOVENOUS ABL 1ST V LTon 01-26-2022 VC ENDOVENOUS ABL 1ST V LT Patient: CIELO RAY Exam Date: 01/26/2022 : 1965 Gender:F Ordering : DR KEILA DE LA FUENTE M.D. Admission #: [id number] Family : Order #: [id number] CLICK HERE TO VIEW EXAM RADIOLOGY REPORT [...] Fuente MD on 01/26/2022 at 16:08 Normal [facility] ALBUMINon 01-14-2022 Albumin [Mass/Vol] 3.6 g/dL Normal 3.4-5.0 [facility] Comment on above: Performed By: #### C JENELLE, ALB, ALT, CRP ####[facility] [address] [place], [place] [address]CbDr. Wilbert Gomez CBC AUTO DIFFon 01-14-2022 BASO # 0.0 103/ul Normal 0.0-0.1 [facility] Comment on above: Performed By: #### C BC #### [facility] [address] [place] [address] [address] Wilbert Gomez Basophils/100 WBC (Bld) 0.5 % Normal 0.2-2.0 [facility] Comment on above: Performed By: #### C BC #### [facility] [address] [place] [address] [address] Wilbert Gomez EO # 0.3 103/ul Normal 0.0-0.7 [facility] Comment on above: Performed By: #### C BC #### [facility] [address] [place] [address] [address] Wilbert Gomez Eosinophils/100 WBC (Bld) 4.2 % Normal 0.9-7.0 [facility] Comment on above: Performed By: #### C BC #### [facility] [address] [place] [address] [address] Wilbert Gomez Erythrocyte distribution width (RBC) [Ratio] 13.6 % Normal 11.0-15.0 [facility] Comment on above: Performed By: #### C BC #### [facility] [address] [place] [address] [address] Wilbert Gomez Hematocrit (Bld) [Volume fraction] 36.8 % Normal 36.0-48.0 [facility] Comment on above: Performed By: #### C BC #### [facility] [address] [place] [address] [address] Wilbert Gomez Hemoglobin (Bld) [Mass/Vol] 12.1 g/dL Normal 12.0-16.0 [facility] Comment on above: Performed By: #### C BC #### [facility] [address] [place] [address] [address] Wilbert Gomez IG # 0.02 10e3/ul Normal 0.00-0.03 [facility] Comment on above: Performed By: #### C BC #### [facility] [address] [place] [address] Dr. Wilbert Gomez IG % 0.3 % Normal 0.0-0.5 [facility] Comment on above: Performed By: #### C BC #### [facility] [address] [place] [address] Dr. Wilbert Gomez LYMPH # 2.6 103/ul Normal 1.2-3.8 [facility] Comment on above: Performed By: #### C BC #### [facility] [address] [place] [address] Dr. Wilbert Gomez Lymphocytes/100 WBC (Bld) 35.7 % Normal 20.5-60.0 [facility] Comment on above: Performed By: #### C BC #### [facility] [address] [place] [address] Dr. Wilbert Gomez MANUAL DIFF REQ NO Normal [facility] Comment on above: Performed By: #### C BC #### [facility] [address] [place] [address] Dr. Wilbert Gomez MCH (RBC) [Entitic mass] 31.7 pg Normal 26.7-34.0 [facility] Comment on above: Performed By: #### C BC #### [facility] [address] [place] [address] Dr. Wilbert Gomez MCHC (RBC) [Mass/Vol] 32.9 g/dL Normal 29.9-35.2 [facility] Comment on above: Performed By: #### C BC #### [facility] [address] [place] [address] Dr. Wilbert Gomez MCV (RBC) [Entitic vol] 96.3 fL Normal 81.0-99.0 [facility] Comment on above: Performed By: #### C BC #### [facility] [address] [place] [address] Dr. Wilbert Gomez MONO # 0.5 103/ul Normal 0.3-0.8 [facility] Comment on above: Performed By: #### C BC #### [facility] [address] [place] [address] Dr. Wilbert Gomez Monocytes/100 WBC (Bld) 6.2 % Normal 1.7-12.0 [facility] Comment on above: Performed By: #### C BC #### [facility] [address] [place] [address] Dr. Wilbert Gomez NEUT # 3.9 103/ul Normal 1.4-6.5 [facility] Comment on above: Performed By: #### C BC #### [facility] [address] [place] [address] Dr. Wilbert Gomez Neutrophils/100 WBC (Bld) 53.1 % Normal 43.0-75.0 [facility] Comment on above: Performed By: #### C BC #### [facility] [address] [place] [address] Dr. Wilbert Gomez Platelet mean volume (Bld) [Entitic vol] 8.9 fL Critically low 9.5-13.5 [facility] Comment on above: Performed By: #### C BC #### [facility] [address] [place] [address] Dr. Wilbert Gomez PLT 275 103/ul Normal 150-450 [facility] Comment on above: Performed By: #### C BC #### [facility] [address] [place] [address] Dr. Wilbert Gomez RBC 3.82 106/ul Critically low 4.20-5.40 [facility] Comment on above: Performed By: #### C BC #### [facility] [address] [place] [address] Dr. Wilbert Gomez WBC 7.3 103/ul Normal 4.0-11.0 [facility] Comment on above: Performed By: #### C BC #### [facility] [address] [place] [address] Dr. Wilbert Gomez CREATININEon 01-14-2022 Creatinine [Mass/Vol] 0.79 mg/dL Normal 0.55-1.02 [facility] Comment on above: Performed By: #### C JENELLE ALB, ALT, CRP ####[facility] [address] [place] [id number]. Wilbert Gomez EGFR-AF MOROCCAN >60 Normal >=60 [facility] Comment on above: Performed By: #### C JENELLE, ALB, ALT, CRP ####[facility] [address] [place], [place] [address]Gb. Wilbert Gomez EGFR-NON AF MOROCCAN >60 Normal >=60 [facility] Comment on above: Performed By: #### C JENLELE, ALB, ALT, CRP ####[facility] [address] [place] [id number]. Wilbert Gomez CRPon 01-14-2022 CRP 1.1 mg/dL Critically high <=1.0 [facility] Comment on above: Performed By: #### C JENELLE, ALB, ALT, CRP ####[facility] [address] [place] [address]Dr. Wilbert Gomez SED RATE ROCKY RIDGEERGRENon 2021 SED RATE 37 mm/hr Critically high <=30 [facility] Comment on above: Performed By: #### C BC #### [facility] [address], [place] [address] Dr. Wilbert Gomez [facility] 01-14-2022 ALT [Catalytic activity/Vol] 30 U/L Normal 14-59 [facility] Comment on above: Performed By: #### C JENELLE, ALB, ALT, CRP ####[facility] [address] [place] [address]DrHong Gomez VC CONSULT FOLLOWUPon 2021 VC CONSULT FOLLOWUP Patient: JEAN PIERRE RAY Exam Date: 12/29/2021 : 1965 Gender:F Ordering : DR KEILA DE LA FUENTE M.D. Admission #: [id number] Family : Order #: [id number] CLICK HERE TO VIEW EXAM RADIOLOGY REPORT [...] Fuente MD on 12/29/2021 at 15:41 Normal [facility] VC EXT VENOUS LT LIMITEDon 1 02-28-2021 VC EXT VENOUS LT LIMITED Patient: CIELO RAY Exam Date: 12/29/2021 : 1965 Gender:F Ordering : DR KEILA DE LA FUENTE M.D. Admission #: [id number] Family : Order #: [id number] CLICK HERE TO VIEW EXAM RADIOLOGY REPORT [...] no flow. *Exam performed in accordance with [facility] practice guidelines- Peripheral venous ultrasound, May 10, 2009. CONCLUSION: Post ablation occlusion of the left great saphenous vein with heat induced thrombus 0.6 cm from the saphenofemoral junction Dictated by: Keila De La Fuente MD on 12/29/2021 at 15:32 Approved by: Keila De La Fuente MD on 12/29/2021 at 15:34 Normal [facility] VC ENDOVENOUS ABL 1ST V LTon 12-22-2021 VC ENDOVENOUS ABL 1ST V LT Patient: CIELO RAY Exam Date: 12/22/2021 : 1965 Gender:F Ordering : DR KEILA DE LA FUENTE M.D. Admission #: [id number] Family : Order #: [id number] CLICK HERE TO VIEW EXAM RADIOLOGY REPORT PROCEDURE: VEIN CENTER ENDOVENOUS ABLATION FIRST VEIN LEFT GREAT SAPHENOUS VEIN COMPARISON: None. INDICATIONS: Pain co-occurrent and due to varicose veins of bilateral legs I83.813 OPERATIVE REPORT: The risks and benefits of the procedure had been previously discussed, and were rediscussed at length. Informed written consent was obtained by me and Dameon Stewart assisted. Time out procedure [...] Fuente MD on 12/22/2021 at 16:10 Normal [facility] COMP CONSULTATIONon 11-30 COMP CONSULTATION Patient: KARINA RAY Exam Date: 11/30/2021 : 1965 Gender:F Ordering : DR KEILA DE LA FUENTE M.D. Admission #: [id number] Family : Order #: [id number] CLICK HERE TO VIEW EXAM RADIOLOGY REPORT PROCEDURE: VEIN CENTER CONSULTATION VEIN CENTER - OFFICE VISIT INITIAL COMPARISON: VC COMP CONSULTATION, 08/12/2020. PROGRESS NOTES: [age] [...] great saphenous and small saphenous veins. Bilateral plc engineer veins and incompetent branch saphenous varicosities. PHYSICAL [...] arterial disease 5. CEAP: C2, EC, AP, AL PLAN: 1. Continued use of compression stockings 2. Elevated legs and increased physical activity symptomatic relief 3. Endovenous laser ablation of left great saphenous left small saphenous veins, left and right plc engineer veins. 4. Microfoam chemical ablation of dilated, incompetent branch saphenous varicosities within right and left lower extremities Nurse notes, history and physical were reviewed and confirmed, see attached forms. The nurse was present throughout the physical exam and consultation Dictated by: Hayden Perla M.D. on 12/01/2021 at 08:06 Approved by: Hayden Perla M.D. on 12/01/2021 at 09:12 [facility] VC VENOUS REFLUX MICHELLE LMTon 1 VC VENOUS REFLUX MICHELLE LMT Patient: CIELO RAY Exam Date: 11/30/2021 : 1965 Gender:F Ordering : DR KEILA DE LA FUENTE M.D. Admission #: [id number] Family : Order #: [id number] CLICK HERE TO VIEW EXAM RADIOLOGY REPORT [...] treated GSV. Incomptent varicose vein associated with plc engineer distal thigh measures 6.2 mm with 2.6s [...] thrombus. Compressibility: Normal. Flow: Deep venous reflux. [employer]: Two medial/distal lower leg perfs measures 3.9 [...] and small saphenous veins. 2. Dilated, incompetent plc engineer veins and branch saphenous varicosities bilaterally. 3. Consultation for endovenous ablation is recommended. Dictated by: Hayden Perla M.D. on 11/30/2021 at 15:51 Approved by: Hayden Perla M.D. on 11/30/2021 at 15:53 Normal [facility] INSULINon 10-09-2021 Insulin 11.9 uIU/mL Normal 2.6-24.9 [facility] Comment on above: Performed By: #### I NSULIN ####[facility] [address] [place] [id number]. Wilbetr Gomez T4, T3U, FTI LABCORPon 10-09 Free Thyroxine Index 2.1 Normal 1.2-4.9 [facility] Comment on above: Performed By: #### T HYLC ####[facility] [address] [place] [id number] Gomez T3 Uptake 29 % Normal 24-39 [facility] Comment on above: Performed By: #### T HYLC ####[facility] [address] [place] [id number] Gomez T4 [Mass/Vol] 7.4 ug/dL Normal 4.5-12.[address] [facility] Comment on above: Performed By: #### T HYLC ####[facility] [address] [place], [place] [address]JmDr. Wilbert Gomez GLYCOHEMOGLOBIN A1Con 2021 ADA RECOMMENDATION SEE BELOW Normal [facility] Comment on above: Result Comment: ADA RECOMMENDED LIMIT 4.0 - 6.0 ADA THERAPEUTIC TARGET < 7.0 ACTION SUGGESTED > 7.0 Performed By: #### A 1C ####[facility] [address] [place] [address]Dr. Wilbert Gomez Glucose [Mass/Vol] 111 mg/dL Normal [facility] Comment on above: Performed By: #### A 1C ####[facility] [address] [place] [address]DrHong Gomez HbA1c (Bld) [Mass fraction] 5.5 % Normal 4.5-6.2 [facility] Comment on above: Performed By: #### A 1C ####[facility] [address] [place] [id number]. Wilbert Gomez IRONon 10-08-2021 Iron [Mass/Vol] 67.0 ug/dL Normal 50.0-170.0 [facility] Comment on above: Performed By: #### I SOLA #### [facility] [address], [place] [address] Dr. Wilbert Gomez LIPID PROFILEon 10-08-2021 CHOL-HDL RATIO NORM SEE BELOW Normal [facility] Comment on above: Result Comment: 3.3 - 4.4 LOW RISK 4.4 - 7.1 AVERAGE RISK 7.1 - 11.0 MODERATE RISK >11.0 HIGH RISK Performed By: #### L IPID, TSH, CMP ####[facility] [address] [place] [id number] Gomez Cholesterol [Mass/Vol] 205 mg/dL Critically high <=200 [facility] Comment on above: Performed By: #### L IPID, TSH, CMP ####[facility] [address] [place] [id number]. Wilbert Gomez Cholesterol in HDL [Mass/Vol] 81 mg/dL Critically high 40-60 [facility] Comment on above: Performed By: #### L IPID, TSH, CMP ####[facility] [address] [place] [id number]. Wilbert Gomez Cholesterol in LDL [Mass/Vol] 108.0 mg/dL Normal [facility] Comment on above: Performed By: #### L IPID, TSH, CMP ####[facility] [address] [place] [id number]. Wilbert Gomez Cholesterol.total/Ch olesterol in HDL [Mass ratio] 2.5 {ratio} Normal [facility] Comment on above: Performed By: #### L IPID, TSH, CMP ####[facility] [address] [place] [id number]. Wilbert Gomez HDL NORMAL > or = 60 mg/dl - LO W CARDIOVASCULAR RISK <40 mg/dl - HIGH CARDIOVASCULAR RISK Normal [facility] Comment on above: Performed By: #### L IPID, TSH, CMP ####[facility] [address] [place] [id number]. Wilbert Gomez LDL CALC NORMAL SEE BELOW Normal [facility] Comment on above: Result Comment: <100 mg/dl OPTIMAL 100 - 129 mg/dl NEAR OR ABOVE OPTIMAL 130 - 159 mg/dl BORDERLINE HIGH 160 - 189 mg/dl HIGH >190 mg/dl VERY HIGH Performed By: #### L IPID, TSH, CMP ####[facility] [address] [place] [id number]. Wilbert Gomez Triglyceride [Mass/Vol] 80 mg/dL Normal <=150 [facility] Comment on above: Performed By: #### L IPID, TSH, CMP ####[facility] [address] [place] [id number]. Wilbert Gomez VLDL CALC 16.0 mg/dL Normal [facility] Comment on above: Performed By: #### L IPID, TSH, CMP ####[facility] [address] [place] [address]Dr. Wilbert Gomez PROF 14(COMP METB)on 022 Albumin [Mass/Vol] 3.6 g/dL Normal 3.4-5.0 [facility] Comment on above: Performed By: #### L IPID, TSH, CMP ####[facility] [address] [place] [address]Dr. Wilbert Gomez Albumin/Globulin [Mass ratio] 1.0 {ratio} Normal [facility] Comment on above: Performed By: #### L IPID, TSH, CMP ####[facility] [address] [place] [address]Dr. Wilbert Gomez ALP [Catalytic activity/Vol] 86 U/L Normal 46-116 [facility] Comment on above: Performed By: #### L IPID, TSH, CMP ####[facility] [address] [place], [place] [address]Dr. Wilbert Gomez ALT [Catalytic activity/Vol] 27 U/L Normal 14-59 [facility] Comment on above: Performed By: #### L IPID, TSH, CMP ####[facility] [address] [place], [place] [address]Dr. Wilbert Gomez Anion gap [Moles/Vol] 12.1 mmol/L Normal [facility] Comment on above: Performed By: #### L IPID, TSH, CMP ####[facility] [address] [place] [address]Dr. Wilbert Goemz AST [Catalytic activity/Vol] 23 U/L Normal 15-37 [facility] Comment on above: Performed By: #### L IPID, TSH, CMP ####[facility] [address] [place], [place] [address]Dr. Wilbert Gomez Bilirubin [Mass/Vol] 0.6 mg/dL Normal 0.2-1.0 [facility] Comment on above: Performed By: #### L IPID, TSH, CMP ####[facility] [address] [place] [address]Dr. Wilbert Gomez Calcium [Mass/Vol] 8.7 mg/dL Normal 8.5-10.1 [facility] Comment on above: Performed By: #### L IPID, TSH, CMP ####[facility] [address] [place] [address]Dr. Wilbert Gomez Chloride [Moles/Vol] 104 mmol/L Normal 98-107 [facility] Comment on above: Performed By: #### L IPID, TSH, CMP ####[facility] [address] [place] [address]Dr. Wilbert Gomez CO2 [Moles/Vol] 26.8 mmol/L Normal 21.0-32.0 [facility] Comment on above: Performed By: #### L IPID, TSH, CMP ####[facility] [address] [place], [place] [address]Dr. Wilbert Gomez Creatinine [Mass/Vol] 0.85 mg/dL Normal 0.55-1.02 [facility] Comment on above: Performed By: #### L IPID, TSH, CMP ####[facility] [address] [place], [place] [address]Dr. Wilbert Gomez EGFR-AF MOROCCAN >60 Normal >=60 [facility] Comment on above: Performed By: #### L IPID, TSH, CMP ####[facility] [address] [place], [place] [address]Dr. Wilbert Gomez EGFR-NON AF MOROCCAN >60 Normal >=60 [facility] Comment on above: Performed By: #### L IPID, TSH, CMP ####[facility] [address] [place] [address]Dr. Wilbert Gomez Globulin (S) [Mass/Vol] 3.7 g/dL Normal [facility] Comment on above: Performed By: #### L IPID, TSH, CMP ####[facility] [address] [place], [place] [address]Dr. Wilbert Gomez Glucose [Mass/Vol] 92 mg/dL Normal 74-106 [facility] Comment on above: Performed By: #### L IPID, TSH, CMP ####[facility] [address] [place] [address]Dr. Wilbert Gomez Potassium [Moles/Vol] 3.9 mmol/L Normal 3.5-5.1 [facility] Comment on above: Performed By: #### L IPID, TSH, CMP ####[facility] [address] [place] [address]Dr. Wilbert Gomez Protein [Mass/Vol] 7.3 g/dL Normal 6.4-8.2 [facility] Comment on above: Performed By: #### L IPID, TSH, CMP ####[facility] [address] [place] [address]Dr. Wilbert Gomez Sodium [Moles/Vol] 139 mmol/L Normal 136-145 [facility] Comment on above: Performed By: #### L IPID, TSH, CMP ####[facility] [address] [place] [address]Dr. Wilbert Gomez Urea nitrogen [Mass/Vol] 10.0 mg/dL Normal 7.0-18.0 [facility] Comment on above: Performed By: #### L IPID, TSH, CMP ####[facility] [address] [place] [address]Dr. Wilbert Gomez Urea nitrogen/Creatinine [Mass ratio] 11.8 mg/mg Normal [facility] Comment on above: Performed By: #### L IPID, TSH, CMP ####[facility] [address] [place] [address]Dr. Wilbert Gomez TSHon 10-08-2021 TSH 0.731 uIU/mL Normal 0.358-3.[address] [facility] Comment on above: Performed By: #### L IPID, TSH, CMP ####[facility] [address] [place] [address]Dr. Wilbert Gomez ALBUMINon 07-30-2021 Albumin [Mass/Vol] 3.8 g/dL Normal 3.4-5.0 [facility] Comment on above: Performed By: #### C JENELLE, ALT, CRP, ALB #### [facility] [address] [place] [address] [address] Wilbert Gomez CBC AUTO DIFFon 07-30-2021 BASO # 0.0 103/ul Normal 0.0-0.1 [facility] Comment on above: Performed By: #### C BC #### [facility] [address] [place] [address] Dr. Wilbert Gomez Basophils/100 WBC (Bld) 0.6 % Normal 0.2-2.0 [facility] Comment on above: Performed By: #### C BC #### [facility] [address] [place] [address] Dr. Wilbert Gomez EO # 0.2 103/ul Normal 0.0-0.7 [facility] Comment on above: Performed By: #### C BC #### [facility] [address] [place] [address] Dr. Wilbert Gomez Eosinophils/100 WBC (Bld) 4.1 % Normal 0.9-7.0 [facility] Comment on above: Performed By: #### C BC #### [facility] [address] [place] [address] Dr. Wilbert Gomez Erythrocyte distribution width (RBC) [Ratio] 14.0 % Normal 11.0-15.0 [facility] Comment on above: Performed By: #### C BC #### [facility] [address] [place] [address] Dr. Wilbert Gomez Hematocrit (Bld) [Volume fraction] 37.4 % Normal 36.0-48.0 [facility] Comment on above: Performed By: #### C BC #### [facility] [address] [place] [address] Dr. Wilbert Gomez Hemoglobin (Bld) [Mass/Vol] 12.2 g/dL Normal 12.0-16.0 [facility] Comment on above: Performed By: #### C BC #### [facility] [address] [place] [address] Dr. Wilbert Gomez IG # 0.01 10e3/ul Normal 0.00-0.03 [facility] Comment on above: Performed By: #### C BC #### [facility] [address] [place] [address] Dr. Wilbert Gomez IG % 0.2 % Normal 0.0-0.5 [facility] Comment on above: Performed By: #### C BC #### [facility] [address] [place] [address] Dr. Wilbert Gomez LYMPH # 1.6 103/ul Normal 1.2-3.8 [facility] Comment on above: Performed By: #### C BC #### [facility] [address] [place] [address] Dr. Wilbert Gomez Lymphocytes/100 WBC (Bld) 33.4 % Normal 20.5-60.0 [facility] Comment on above: Performed By: #### C BC #### [facility] [address] [place] [address] Dr. Wilbert Gomez MANUAL DIFF REQ NO Normal [facility] Comment on above: Performed By: #### C BC #### [facility] [address] [place] [address] Dr. Wilbert Gomez MCH (RBC) [Entitic mass] 31.9 pg Normal 26.7-34.0 [facility] Comment on above: Performed By: #### C BC #### [facility] [address] [place] [address] Dr. Wilbert Gomez MCHC (RBC) [Mass/Vol] 32.6 g/dL Normal 29.9-35.2 [facility] Comment on above: Performed By: #### C BC #### [facility] [address] [place] [address] Dr. Wilbert Gomez MCV (RBC) [Entitic vol] 97.7 fL Normal 81.0-99.0 [facility] Comment on above: Performed By: #### C BC #### [facility] [address] [place] [address] Dr. Wilbert Gomez MONO # 0.5 103/ul Normal 0.3-0.8 [facility] Comment on above: Performed By: #### C BC #### [facility] [address] [place] [address] Dr. Wilbert Gomez Monocytes/100 WBC (Bld) 11.0 % Normal 1.7-12.0 [facility] Comment on above: Performed By: #### C BC #### [facility] [address] [place] [address] Dr. Wilbert Gomez NEUT # 2.4 103/ul Normal 1.4-6.5 [facility] Comment on above: Performed By: #### C BC #### [facility] [address] [place] [address] Dr. Wilbert Gomez Neutrophils/100 WBC (Bld) 50.7 % Normal 43.0-75.0 [facility] Comment on above: Performed By: #### C BC #### [facility] [address] [place] [address] Dr. Wilbert Gomez Platelet mean volume (Bld) [Entitic vol] 8.8 fL Critically low 9.5-13.5 [facility] Comment on above: Performed By: #### C BC #### [facility] [address] [place] [address] Dr. Wilbert Gomez PLT 228 103/ul Normal 150-450 [facility] Comment on above: Performed By: #### C BC #### [facility] [address] [place] [address] Dr. Wilbert Gomez RBC 3.83 106/ul Critically low 4.20-5.40 [facility] Comment on above: Performed By: #### C BC #### [facility] [address] [place] [address] Dr. Wilbert Gomez WBC 4.8 103/ul Normal 4.0-11.0 [facility] Comment on above: Performed By: #### C BC #### [facility] [address] [place] [address] Dr. Wilbert Gomez CREATININEon 07-30-2021 Creatinine [Mass/Vol] 0.87 mg/dL Normal 0.55-1.02 [facility] Comment on above: Performed By: #### C JENELLE, ALT, CRP, ALB #### [facility] [address] [place] [address] Dr. Wilbert Gomez EGFR-AF MOROCCAN >60 Normal >=60 [facility] Comment on above: Performed By: #### C JENELLE, ALT, CRP, ALB #### [facility] [address] [place] [address] [address] Wilbert Gomez EGFR-NON AF MOROCCAN >60 Normal >=60 [facility] Comment on above: Performed By: #### C JENELLE, ALT, CRP, ALB #### [facility] [address] [place] [address] [address] Wilbert Gomez CRPon 07-30-2021 CRP 1.5 mg/dL Critically high <=1.0 [facility] Comment on above: Performed By: #### C JENELLE, ALT, CRP, ALB #### [facility] [address] [place] [address] Dr. Wilbert Gomez SED RATE [facility] 2021 SED RATE 14 mm/hr Normal <=30 [facility] Comment on above: Performed By: #### S EDR #### [facility] [address] [place] [address] Dr. Wilbert Gomez SGPTon 07-30-2021 ALT [Catalytic activity/Vol] 38 U/L Normal 14-59 [facility] Comment on above: Performed By: #### C JENELLE, ALT, CRP, ALB #### [facility] [address] [place] [address] Dr. Wilbert Gomez MG MAMM SCREEN 3D MICHELLE CADon 07-16-2021 MG MAMM SCREEN 3D MICHELLE CAD Patient: CIELO RAY Exam Date: 07/16/2021 : 1965 Gender:F Ordering : [facility]ILYN [facility] Admission #: [id number] Family : Order #: [id number] CLICK HERE TO VIEW EXAM RADIOLOGY REPORT [...] breast cancer at age 55. LOCATION: [facility] BREAST COMPOSITION: Heterogeneously dense,which may obscure small [...] Perla M.D. on 07/17/2021 at 09:49 Normal [facility] Encounters Encounter Date Encounter Type Care Provider Facility Start: 06-22-2022 End: 06-22-2022 ambulatory Esdras Bonilla Facility:[facility] Start: 06-02-2022 ambulatory MARILYN DE Facility: [...] medical examination without abnormal findings MARILYN DE [facility] Start: 10-08-2021 End: 10-09-2021 ambulatory MARILYN DE Facility:[facility] Start: 10-08-2021 End: 10-09-2021 Encounter for general adult medical examination without abnormal findings MARILYN DE Facility:[facility] Start: 07-30-2021 End: 07-31-2021 ambulatory ERIKA MCCRACKEN Facility:[facility] Start: 07-16-2021 End: 07-17-2021 ambulatory MARILYN DE Facility:[facility] Payers Date Payer Category Payer Self-pay 1965 Unknown [id number] [id number] [id number] 1965 Unknown [id number] [id number] [id number] 1965 Unknown [id number] 2.16.84 [id number] 1965 Unknown [id number] 2.16.84 [id number] 1965 Unknown [id number] 2.16.84 [id number] 1965 Unknown [id number] 2.16.84 [id number] 1965 Unknown [id number] 2.16.84 [id number] 1965 Unknown [id number] 2.16.84 [id number] 1965 Unknown [id number] 2.16.84 [id number] 1965 Unknown [id number] 2.16.84 [id number] 1959 Unknown [id number] Unknown [id number] 2.16.8 [id number] Summary Purpose Family History No Family History Records FoundNo Family History Records Found Advance Directives No Advanced Directives Records FoundNo Advanced Directives Records Found Additional Source Comments INFORMATION SOURCE (unrecogn ized section and content) DATE CREATED AUTHOR 06/03/2022 [facility] DATE CREATED AUTHOR DONNA CASTELAN 06/26/2022 [facility] FOR RECORDS PERTAINING TO PATIENTS WHO ARE [...] BE BASED ON THE PRIMARY CLINICAL RECORDS. [facility]. provides no warranty or guarantee of the accuracy or completeness of information in this document.
[2023-05-16 15:56] LABS: Basophils Percent Auto 0.3 % (0.2-2.0); Eosinophils Absolute Auto 0.1 10^3/uL (0.0-0.7); Eosinophils Percent Auto 0.5 % (0.9-7.0); Hematocrit 39.1 % (36.0-48.0); Hemoglobin 12.5 g/dL (12.0-16.0); Immature Granulocytes Abs Auto 0.04 10^3/uL (0.00-0.03); Immature Granulocytes Pct Auto 0.4 % (0.0-0.5); Lymphocytes Absolute Auto 1.8 10^3/uL (1.2-3.8); Lymphocytes Percent Auto 19.2 % (20.5-60.0); Mean Corpuscular Hemoglobin 31.3 pg (26.7-34.0); Mean Platelet Volume 8.6 fL (9.5-13.5); Monocytes Absolute Auto 0.6 10^3/uL (0.3-0.8); Monocytes Percent Auto 6.1 % (1.7-12.0); Neutrophils Percent Auto 73.5 % (43.0-75.0); Platelet Count 287 10^3/uL (150-450); Red Blood Count 3.99 10^6/uL (4.20-5.40); Red Cell Distribution Width 13.5 % (11.0-15.0); White Blood Count 9.5 10^3/uL (4.0-11.0)
[2023-05-16 16:08] LABS: Erythrocyte Sedimentation Rate 26 mm/hr (<=30)
[2023-05-16 16:09] LABS: Alanine Aminotransferase 46 U/L (14-59); Albumin Globulin Ratio 0.9; Albumin Level 3.6 g/dL (3.4-5.0); Alkaline Phosphatase 97 U/L (46-116); Aspartate Amino Transferase 33 U/L (15-37); Bilirubin Direct 0.1 mg/dL (0.0-0.2); Bilirubin Total 0.5 mg/dL (0.2-1.0); Estimated GFR (African America >60 (>=60); Estimated GFR (Non-African Ame >60 (>=60); Globulin 3.9 g/dL; Total Protein 7.5 g/dL (6.4-8.2)
== END 2023-05-16 15:41 | disposition home or self-care (01) ==
PROVIDERS: PCP Nurse Practitioner Family; Visit Provider Internal Medicine Rheumatology
DX: M05.79 Rheumatoid arthritis with rheumatoid factor of multiple sites without organ or systems involvement (principal); Z79.899 Other long term (current) drug therapy
CPT/HCPCS: 36415; 80076; 82565; 85025; 85652

== ENCOUNTER 2023-07-21 15:56 | Outpatient (OUT) | payer BC, SELFPAY ==
--- NOTE | 2023-07-21 16:01 | MM_ITS ---
Patient Name: CIELO STEVENS MR#: [id number] : 1965 Exam Date: 07/21/2023 Ordering Doctor: MARILYN DE CNP RADIOLOGY REPORT PROCEDURE: MM TOMOSYNTHESIS SCREENING BI COMPARISON: MM TOMOSYNTHESIS SCREENING BI, 07/20/2022. MG MAMM SCREEN 3D MICHELLE CAD, 07/16/2021. MG MAMM SCREEN 3D MICHELLE CAD, 07/01/2020. MG MAMM SCREEN MICHELLE W CAD, 04/12/2017. INDICATIONS: Screening Calculator Name NCI Breast Cancer Risk Assessment Tool 5 Year Breast Cancer Risk 2.50% Lifetime Breast Cancer Risk 14.50% Personal Breast Cancer No Personal Ovarian Cancer No Treatments None Family Cancers Mother with breast cancer at age 55. LOCATION: [facility] BREAST COMPOSITION: The breasts are heterogeneously dense,which may obscure small masses. FINDINGS: DIAGNOSTIC CATEGORY 2--BENIGN FINDING: RIGHT BREAST: No significant suspicious finding. Scattered benign-appearing calcifications are present. No significant change has occurred. LEFT BREAST: No significant suspicious finding. Scattered benign-appearing calcifications are present. No significant change has occurred. RECOMMENDATIONS: ROUTINE MAMMOGRAM AND CLINICAL EVALUATION IN 12 MONTHS. PLEASE NOTE: A NORMAL MAMMOGRAM DOES NOT EXCLUDE THE POSSIBILITY OF BREAST CANCER. A CLINICALLY SUSPICIOUS PALPABLE LUMP SHOULD BE BIOPSIED. Dictated by: aHyden Perla M.D. on 07/22/2023 at 15:03 Approved by: Hayden Perla M.D. on 07/22/2023 at 15:05
== END 2023-07-21 15:57 | disposition home or self-care (01) ==
LOC: MAMMO 15:56
PROVIDERS: PCP Nurse Practitioner Family; Visit Provider Nurse Practitioner Family
DX: Z12.31 Encounter for screening mammogram for malignant neoplasm of breast (principal); Z80.3 Family history of malignant neoplasm of breast
CPT/HCPCS: 77063; 77067

== ENCOUNTER 2023-09-26 12:51 | Outpatient (OUT) | payer BC, SELFPAY ==
[2023-09-26 13:17] LABS: Basophils Percent Auto 0.4 % (0.2-2.0); Eosinophils Absolute Auto 0.2 10^3/uL (0.0-0.7); Eosinophils Percent Auto 2.4 % (0.9-7.0); Hematocrit 38.8 % (36.0-48.0); Hemoglobin 12.7 g/dL (12.0-16.0); Immature Granulocytes Abs Auto 0.02 10^3/uL (0.00-0.03); Immature Granulocytes Pct Auto 0.3 % (0.0-0.5); Lymphocytes Absolute Auto 1.7 10^3/uL (1.2-3.8); Lymphocytes Percent Auto 23.5 % (20.5-60.0); Mean Corpuscular HGB Conc 32.7 g/dL (29.9-35.2); Mean Corpuscular Hemoglobin 31.8 pg (26.7-34.0); Mean Platelet Volume 8.8 fL (9.5-13.5); Monocytes Absolute Auto 0.3 10^3/uL (0.3-0.8); Monocytes Percent Auto 4.6 % (1.7-12.0); Neutrophils Absolute Auto 5.1 10^3/uL (1.4-6.5); Neutrophils Percent Auto 68.8 % (43.0-75.0); Platelet Count 267 10^3/uL (150-450); Red Cell Distribution Width 13.5 % (11.0-15.0); White Blood Count 7.4 10^3/uL (4.0-11.0)
[2023-09-26 13:19] LABS: Erythrocyte Sedimentation Rate 62 mm/hr (<=30)
[2023-09-26 13:54] LABS: Alanine Aminotransferase 37 U/L (14-59); Albumin Globulin Ratio 0.9; Albumin Level 3.4 g/dL (3.4-5.0); Alkaline Phosphatase 88 U/L (46-116); Aspartate Amino Transferase 26 U/L (15-37); Bilirubin Direct 0.1 mg/dL (0.0-0.2); Bilirubin Total 0.7 mg/dL (0.2-1.0); Estimated GFR (African America >60 (>=60); Estimated GFR (Non-African Ame 56 (>=60); Globulin 3.7 g/dL; Total Protein 7.1 g/dL (6.4-8.2)
== END 2023-09-26 12:52 | disposition home or self-care (01) ==
LOC: LAB 12:53
PROVIDERS: PCP Nurse Practitioner Family; Visit Provider Internal Medicine Rheumatology
DX: M05.79 Rheumatoid arthritis with rheumatoid factor of multiple sites without organ or systems involvement (principal); Z79.899 Other long term (current) drug therapy
CPT/HCPCS: 36415; 80076; 82565; 85025; 85652

== ENCOUNTER 2023-10-18 15:23 | Outpatient (OUT) | payer BC, SELFPAY ==
--- NOTE | 2023-10-18 15:29 | MR_ITS ---
[facility] [place] [id number] Patient Name: CIELO STEVENS MRN: [id number] date: 1965 Sex: F Assigned Patient Location: MRI Current Patient Location: Accession/Order Number: [id number] Exam Date: 10/18/2023 15:45 Report Date: 10/19/2023 12:11 At the request of: LEODAN ALCARAZ Procedure: MR foot RT wo con EXAM: MR foot RT wo con HISTORY: Right Metatarsal Deformity, Arciniega Neuroma COMPARISON: None. TECHNIQUE: MRI images obtained with multiple sequences. MRI of the right foot without contrast. Sequences obtained by standard department protocol. FINDINGS: No ankle joint effusion. No subtalar joint effusion. No significant degeneration at the ankle joint or subtalar joint. Achilles tendon and plantar fascia are intact. Mild degeneration at the second tarsometatarsal joint. Extensor and flexor tendons are intact. Mild to moderate atrophy of the intrinsic/plantar musculature of the foot. Soft tissue mass at the third interspace, measuring approximately 1.3 x 1.6 cm (axial T2 image 6, axial T1 image 6). 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 Nonspecific edema at the third metatarsal head, possibly degenerative or posttraumatic MR/MR foot RT wo con IMPRESSION: 1. Soft tissue mass at the third interspace, measuring approximately 1.3 x 1.6 cm (axial T2 image 6, axial T1 image 6). 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 2. Nonspecific edema at the third metatarsal head, considerations include degenerative or posttraumatic etiologies. 3. Extensor and flexor tendons are intact. Electronically authenticated by: CAMILO JEAN Date: 10/19/2023 12:11
== END 2023-10-18 15:24 | disposition home or self-care (01) ==
LOC: MRI 15:23
PROVIDERS: PCP Nurse Practitioner Family; Visit Provider Family Medicine
DX: M21.961 Unspecified acquired deformity of right lower leg (principal); G57.61 Lesion of plantar nerve, right lower limb
CPT/HCPCS: 73718

== ENCOUNTER 2024-02-10 12:53 | Outpatient (OUT) | payer BC, SELFPAY ==
[2024-02-10 13:06] LABS: Basophils Percent Auto 0.4 % (0.2-2.0); Eosinophils Absolute Auto 0.4 10^3/uL (0.0-0.7); Eosinophils Percent Auto 4.9 % (0.9-7.0); Hematocrit 41.3 % (36.0-48.0); Hemoglobin 13.2 g/dL (12.0-16.0); Immature Granulocytes Abs Auto 0.03 10^3/uL (0.00-0.03); Immature Granulocytes Pct Auto 0.4 % (0.0-0.5); Lymphocytes Absolute Auto 1.8 10^3/uL (1.2-3.8); Lymphocytes Percent Auto 24.5 % (20.5-60.0); Mean Corpuscular Hemoglobin 31.3 pg (26.7-34.0); Mean Corpuscular Volume 97.9 fL (81.0-99.0); Mean Platelet Volume 8.6 fL (9.5-13.5); Monocytes Absolute Auto 0.6 10^3/uL (0.3-0.8); Monocytes Percent Auto 8.6 % (1.7-12.0); Neutrophils Absolute Auto 4.5 10^3/uL (1.4-6.5); Neutrophils Percent Auto 61.2 % (43.0-75.0); Platelet Count 240 10^3/uL (150-450); Red Blood Count 4.22 10^6/uL (4.20-5.40); Red Cell Distribution Width 13.6 % (11.0-15.0); White Blood Count 7.4 10^3/uL (4.0-11.0)
--- OUTSIDE RECORDS SUMMARY | 2024-02-10 13:16 | XMS_ITS | CCD ---
Author Organization [facility] Care Team Providers Care Sealer Dry Cell Name Role Phone TERESA DE Attending Unavailable SANTINO, TERESA Admitting Unavailable Zieber, Hayden Consulting Unavailable SANTINO, TERESA Primary Care Unavailable SANTINO, TERESA Consulting Unavailable SANTINO, TERESA Primary Care Unavailable WEST, KEILA V Attending Unavailable WEST, KEILA V Admitting Unavailable WEST, KEILA V Consulting Unavailable SANTINO, TERESA Primary Care Unavailable WEST, KEILA V Attending Unavailable WEST, KEILA V Admitting Unavailable WEST, KEILA V Consulting Unavailable Zieber, Hayden Consulting Unavailable SANTINO, TERESA Primary Care Unavailable WEST, KEILA V Attending Unavailable WEST, KEILA V Admitting Unavailable WEST, KEILA V Consulting Unavailable SANTINO, TERESA Primary Care Unavailable WEST, KEILA V Attending Unavailable WEST, KEILA V Admitting Unavailable WEST, KEILA V Consulting Unavailable SANTINO, TERESA Primary Care Unavailable WEST, KEILA V Attending Unavailable WEST, KEILA V Admitting Unavailable WEST, KEILA V Consulting Unavailable Zieber, Hayden Consulting Unavailable SANTINO, TERESA Attending Unavailable SANTINO, TERESA Admitting Unavailable SANTINO, TERESA Primary Care Unavailable AHMED, SARAED Attending Unavailable AHMED, MOHAMMED Admitting Unavailable AHMED, MOHAMMED Consulting Unavailable SANTINO, TERESA Primary Care Unavailable SANTINO, TERESA Attending Unavailable SANTINO, TERESA Admitting Unavailable SANTINO, TERESA Consulting Unavailable SANTINO, TERESA Primary Care Unavailable SANTINO, TERESA Primary Care Unavailable AHMED, MOHAMMED Attending Unavailable VALENTEMED, MOHAMMED Admitting Unavailable NAWAF, MOHAMMED Consulting Unavailable Esdras Bonilla Admitting Unavailable Esdras Bonilla Attending Unavailable Lola Hyde Primary Care Physician Santino CAI, Teresa Unavailable Paul Villatoro MD Primary Care Provider DOLCE, KAROLINA R Attending Unavailable KAROLINA BOOTHE R Referring Unavailable MATTHEWZORA ASTORGAEEM R Attending Unavailable KAROLINA BOOTHE R Attending Unavailable KAROLINA BOOTHE R Attending Unavailable ZORA BOOTHEEEM R Attending Unavailable KAROLINA BOOTHE R Attending Unavailable Problems Active Problems Problem Classification Problem Date Documented Da te Episodic/Chronic Conditions associated with dizziness or vertigo (4 sources) Dizziness and giddiness; Translations: [DIZZINESS AND GIDDINESS] Onset: 06-02-2022 Episodic Other acquired deformities (3 sources) Deformity of metatarsal; Translations: [Unspecified acquired deformity of right lower leg] 10-27-2023 Episodic Other connective tissue disease (1 source) Polymyalgia rheumatica; Translations: [POLYMYALGIA RHEUMATICA] Onset: 08-03-2021 Chronic Other connective tissue disease (1 source) Pain in right foot; Translations: [Pain in right foot] 01-26-2024 Episodic Other inflammatory condition of skin (4 sources) Psoriatic arthritis mutilans; 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 [facility] Comment on above: Result Comment: Nega tive <1:80 Borderline 1:80 Positive >1:80 ICAP nomenclature: AC-[id number] For more information about Hep-2 cell patterns use ANApatterns.org, the official website for the International Consensus on Antinuclear Antibody (GERONIMO) Patterns (ICAP). Performed at: [facility] [id number] Funeral Arranger: Charlie Arevalo PhD, Phone: [phone] Performed By: #### A DNA, C4, GERONIMO, CH50, C3, LOZOYA #### [facility] , Anti-Lozoya Antibodieson Anti-Lozoya Antibodies <0.2 Normal 0.0-0.9 [facility] Comment on above: Performed By: #### A DNA, C4, GERONIMO, CH50, C3, LOZOYA #### [facility] , Anti-dsDNA(DBL)Abon 06-23-19 23 Anti-dsDNA(DBL)Ab 1 Normal 0-9 [facility] Comment on above: Result Comment: Nega tive <5 Equivocal 5 - 9 Positive >9 Performed at: [facility] [employer] [id number] Funeral Arranger: Charlie Arevalo PhD, Phone: [phone] PERFORMED BY: [facility] [place] [address] PATHOLOGIST CANDLE MOLDER EULALIA OLSEN M.D. Performed By: #### A DNA, C4, GERONIMO, CH50, C3, LOZOYA #### [facility] , C-Reactive Proteinon 023 C-Reactive Protein 1.1 mg/dL High 0.0-0.5 [facility] Comment on above: Result Comment: PERF ORMED BY: [facility] [place] [address] PATHOLOGIST CANDLE MOLDER EULALIA OLSEN M.D. Performed By: #### A DNA, C4, GERONIMO, CH50, C3, LOZOYA #### [facility] , Complement C3on 06-22-2022 Complement C3 147 mg/dL Normal 82-167 [facility] Comment on above: Result Comment: Perf ormed at: [facility] [employer] [id number] Funeral Arranger: Charlie Arevalo PhD, Phone: [phone] Performed By: #### A DNA, C4, GERONIMO, CH50, C3, LOZOYA #### [facility] , Complement C4on 06-22-2022 Complement C4 33 mg/dL Normal 12-38 [facility] Comment on above: Performed By: #### A DNA, C4, GERONIMO, CH50, C3, LOZOYA #### [facility] , Complement Total (CH50)on Complement Total (CH50) 55 Normal >41 [facility] Comment on above: Result Comment: Age [...] determine out of range values. Performed at: [facility] [employer] [id number] Funeral Arranger: Charlie Arevalo PhD, Phone: [phone] PERFORMED BY: [facility] [address] [place] [address] PATHOLOGIST CANDLE MOLDER EULALIA OLSEN M.D. Performed By: #### A DNA, C4, GERONIMO, CH50, C3, LOZOYA #### [facility] , Complete Blood Count Auto Di ffon 06-22-2022 Basophils (Bld) [#/Vol] 0.1 10*3/uL Normal 0.0-0.2 [facility] Comment on above: Performed By: #### H BCAB, HBSAG, HCV RX PCR, HBSAB #### [facility] , #### ADDONUAPLUS, ESR, CBC, CMP, CRP #### [address] Basophils/100 WBC (Bld) 0.7 % Normal . [facility] Comment on above: Performed By: #### H BCAB, HBSAG, HCV RX PCR, HBSAB #### [facility] , #### ADDONUAPLUS, ESR, CBC, CMP, CRP #### [address] Eosinophils (Bld) [#/Vol] 0.3 10*3/uL Normal 0.0-0.45 [facility] Comment on above: Performed By: #### H BCAB, HBSAG, HCV RX PCR, HBSAB #### [facility] , #### ADDONUAPLUS, ESR, CBC, CMP, CRP #### [address] Eosinophils/100 WBC (Bld) 3.8 % Normal . [facility] Comment on above: Performed By: #### H BCAB, HBSAG, HCV RX PCR, HBSAB #### [facility] , #### ADDONUAPLUS, ESR, CBC, CMP, CRP #### [address] Erythrocyte distribution width (RBC) [Ratio] 13.7 % Normal 11.9-15.3 [facility] Comment on above: Performed By: #### H BCAB, HBSAG, HCV RX PCR, HBSAB #### [facility] , #### ADDONUAPLUS, ESR, CBC, CMP, CRP #### [address] Hematocrit (Bld) [Volume fraction] 39.4 % Normal 34.0-46.4 [facility] Comment on above: Performed By: #### H BCAB, HBSAG, HCV RX PCR, HBSAB #### [facility] , #### ADDONUAPLUS, ESR, CBC, CMP, CRP #### [address] Hemoglobin (Bld) [Mass/Vol] 13.0 g/dL Normal 11.8-15.4 [facility] Comment on above: Performed By: #### H BCAB, HBSAG, HCV RX PCR, HBSAB #### [facility] , #### ADDONUAPLUS, ESR, CBC, CMP, CRP #### [address] Lymphocytes (Bld) [#/Vol] 2.5 10*3/uL Normal 1.00-4.8 [facility] Comment on above: Performed By: #### H BCAB, HBSAG, HCV RX PCR, HBSAB #### [facility] , #### ADDONUAPLUS, ESR, CBC, CMP, CRP #### [address] Lymphocytes/100 WBC (Bld) 35.4 % Normal . [facility] Comment on above: Performed By: #### H BCAB, HBSAG, HCV RX PCR, HBSAB #### [facility] , #### ADDONUAPLUS, ESR, CBC, CMP, CRP #### [address] MCH (RBC) [Entitic mass] 31.3 pg Normal 24.7-34.3 [facility] Comment on above: Performed By: #### H BCAB, HBSAG, HCV RX PCR, HBSAB #### [facility] , #### ADDONUAPLUS, ESR, CBC, CMP, CRP #### [address] MCV (RBC) [Entitic vol] 94.7 fL Normal 80-100 [facility] Comment on above: Performed By: #### H BCAB, HBSAG, HCV RX PCR, HBSAB #### [facility] , #### ADDONUAPLUS, ESR, CBC, CMP, CRP #### [address] Mean Corpuscular HGB Conc 33.1 g/dL Normal 32.0-35.0 [facility] Comment on above: Performed By: #### H BCAB, HBSAG, HCV RX PCR, HBSAB #### [facility] , #### ADDONUAPLUS, ESR, CBC, CMP, CRP #### [address] Monocytes (Bld) [#/Vol] 0.3 10*3/uL Normal 0.0-0.8 [facility] Comment on above: Performed By: #### H BCAB, HBSAG, HCV RX PCR, HBSAB #### [facility] , #### ADDONUAPLUS, ESR, CBC, CMP, CRP #### [address] Monocytes/100 WBC (Bld) 4.7 % Normal . [facility] Comment on above: Performed By: #### H BCAB, HBSAG, HCV RX PCR, HBSAB #### [facility] , #### ADDONUAPLUS, ESR, CBC, CMP, CRP #### [address] Neutrophils (Bld) [#/Vol] 3.9 10*3/uL Normal 1.8-7.7 [facility] Comment on above: Performed By: #### H BCAB, HBSAG, HCV RX PCR, HBSAB #### [facility] , #### ADDONUAPLUS, ESR, CBC, CMP, CRP #### [address] Neutrophils/100 WBC (Bld) 55.4 % Normal . [facility] Comment on above: Performed By: #### H BCAB, HBSAG, HCV RX PCR, HBSAB #### [facility] , #### ADDONUAPLUS, ESR, CBC, CMP, CRP #### [address] NRBC% 0.0 /100{WBC} Normal 0-0.5 [facility] Comment on above: Performed By: #### H BCAB, HBSAG, HCV RX PCR, HBSAB #### [facility] , #### ADDONUAPLUS, ESR, CBC, CMP, CRP #### [address] Platelet mean volume (Bld) [Entitic vol] 7.5 fL Normal 6.3-10.7 [facility] Comment on above: Performed By: #### H BCAB, HBSAG, HCV RX PCR, HBSAB #### [facility] , #### ADDONUAPLUS, ESR, CBC, CMP, CRP #### [address] Platelets (Bld) [#/Vol] 299 10*3/uL Normal 150-450 [facility] Comment on above: Performed By: #### H BCAB, HBSAG, HCV RX PCR, HBSAB #### [facility] , #### ADDONUAPLUS, ESR, CBC, CMP, CRP #### [address] RBC (Bld) [#/Vol] 4.17 10*6/uL Normal 3.60-5.00 [facility] Comment on above: Performed By: #### H BCAB, HBSAG, HCV RX PCR, HBSAB #### [facility] , #### ADDONUAPLUS, ESR, CBC, CMP, CRP #### [facility] [address] WBC (Bld) [#/Vol] 7.1 10*3/uL Normal 3.8-11.6 [facility] Comment on above: Performed By: #### H BCAB, HBSAG, HCV RX PCR, HBSAB #### [facility] , #### ADDONUAPLUS, ESR, CBC, CMP, CRP #### [facility] [address] Comprehensive Metabolic Pane darshan 06-22-2022 Albumin [Mass/Vol] 4.4 g/dL Normal 3.5-5.7 [facility] Comment on above: Performed By: #### A DNA, C4, GERONIMO, CH50, C3, LOZOYA #### [facility] , Albumin/Globulin [Mass ratio] 1.6 {ratio} Normal [facility] Comment on above: Performed By: #### A DNA, C4, GERONIMO, CH50, C3, LOZOYA #### [facility] , ALP [Catalytic activity/Vol] 78 U/L Normal 34-104 [facility] Comment on above: Performed By: #### A DNA, C4, GERONIMO, CH50, C3, LOZOYA #### [facility] , ALT [Catalytic activity/Vol] 21 U/L Normal 7-52 [facility] Comment on above: Performed By: #### A DNA, C4, GERONIMO, CH50, C3, LOZOYA #### [facility] , Anion gap [Moles/Vol] 12.9 mmol/L Normal 6.0-15.0 [facility] Comment on above: Performed By: #### A DNA, C4, GERONIMO, CH50, C3, LOZOYA #### [facility] , AST [Catalytic activity/Vol] 24 U/L Normal 13-39 [facility] Comment on above: Performed By: #### A DNA, C4, GERONIMO, CH50, C3, LOZOYA #### [facility] , Bilirubin [Mass/Vol] 0.9 mg/dL Normal 0.3-1.0 [facility] Comment on above: Performed By: #### A DNA, C4, GERONIMO, CH50, C3, LOZOYA #### [facility] , Calcium [Mass/Vol] 9.0 mg/dL Normal 8.6-10.3 [facility] Comment on above: Performed By: #### A DNA, C4, GERONIMO, CH50, C3, LOZOYA #### [facility] , Chloride [Moles/Vol] 106 mmol/L Normal 98-107 [facility] Comment on above: Performed By: #### A DNA, C4, GERONIMO, CH50, C3, LOZOYA #### [facility] , CO2 [Moles/Vol] 25.2 mmol/L Normal 21.0-31.0 [facility] Comment on above: Performed By: #### A DNA, C4, GERONIMO, CH50, C3, LOZOYA #### [facility] , Creatinine [Mass/Vol] 0.79 mg/dL Normal 0.60-1.20 [facility] Comment on above: Performed By: #### A DNA, C4, GERONIMO, CH50, C3, LOZOYA #### [facility] , GFR/1.73 sq M.predicted MDRD (S/P/Bld) [Vol rate/Area] mL/min/{1.73_m2} Normal [facility] Comment on above: Performed By: #### A DNA, C4, GERONIMO, CH50, C3, LOZOYA #### [facility] , Globulin (S) [Mass/Vol] 2.8 g/dL Normal [facility] Comment on above: Performed By: #### A DNA, C4, GERONIMO, CH50, C3, LOZOYA #### [facility] , Glucose [Mass/Vol] 97 mg/dL Normal 70-100 [facility] Comment on above: Result Comment: [place] Glucose Reference Range is dependent on time and content of last meal. Glucose of more than 200 mg/dL in a nonstressed, ambulatory subject supports the diagnosis of Diabetes Mellitus. ADA recommended reference range Performed By: #### A DNA, C4, GERONIMO, CH50, C3, LOZOYA #### [facility] , Potassium [Moles/Vol] 4.1 mmol/L Normal 3.5-5.1 [facility] Comment on above: Performed By: #### A DNA, C4, GERONIMO, CH50, C3, LOZOYA #### [facility] , Protein [Mass/Vol] 7.2 g/dL Normal 6.4-8.9 [facility] Comment on above: Performed By: #### A DNA, C4, GERONIMO, CH50, C3, LOZOYA #### [facility] , Sodium [Moles/Vol] 140 mmol/L Normal 136-145 [facility] Comment on above: Performed By: #### A DNA, C4, GERONIMO, CH50, C3, LOZOYA #### [facility] , Urea nitrogen [Mass/Vol] 12 mg/dL Normal 7-25 [facility] Comment on above: Performed By: #### A DNA, C4, GERONIMO, CH50, C3, LOZOYA #### [facility] , Dipstick and Microscopicon 0 06-22-2022 Appearance (U) Clear Normal Clear [facility] Comment on above: Order Comment: Name Collection Type:: Clean-Voided Midstream Performed By: #### H BCAB, HBSAG, HCV RX PCR, HBSAB #### [facility] , #### ADDONUAPLUS, ESR, CBC, CMP, CRP #### [facility] [address] Bacteria,Urine 1+ High None Seen [facility] Comment on above: Order Comment: Name Collection Type:: Clean-Voided Midstream Performed By: #### H BCAB, HBSAG, HCV RX PCR, HBSAB #### [facility] , #### ADDONUAPLUS, ESR, CBC, CMP, CRP #### [facility] [address] [place] [address] Bilirubin,Urine Negative Normal Negative [facility] Comment on above: Order Comment: Name Collection Type:: Clean-Voided Midstream Performed By: #### H BCAB, HBSAG, HCV RX PCR, HBSAB #### [facility] , #### ADDONUAPLUS, ESR, CBC, CMP, CRP #### [facility] [address] [place] [address] Color (U) Yellow Normal Yellow [facility] Comment on above: Order Comment: Name Collection Type:: Clean-Voided Midstream Performed By: #### H BCAB, HBSAG, HCV RX PCR, HBSAB #### [facility] , #### ADDONUAPLUS, ESR, CBC, CMP, CRP #### [facility] [address] [place] [address] Glucose Ql (U) Normal Normal Normal [facility] Comment on above: Order Comment: Name Collection Type:: Clean-Voided Midstream Performed By: #### H BCAB, HBSAG, HCV RX PCR, HBSAB #### [facility] , #### ADDONUAPLUS, ESR, CBC, CMP, CRP #### [facility] [address] [place] [address] Hyaline Casts,Urine 0-8 Normal 0-8 [facility] Comment on above: Order Comment: Name Collection Type:: Clean-Voided Midstream Result Comment: PERF ORMED BY: [place] [address] PATHOLOGIST CANDLE MOLDER EULALIA OLSEN M.D. Performed By: #### H BCAB, HBSAG, HCV RX PCR, HBSAB #### [facility] , #### ADDONUAPLUS, ESR, CBC, CMP, CRP #### [facility] [address] [place] [address] Ketones Ql (U) Negative Normal Negative [facility] Comment on above: Order Comment: Name Collection Type:: Clean-Voided Midstream Performed By: #### H BCAB, HBSAG, HCV RX PCR, HBSAB #### [facility] , #### ADDONUAPLUS, ESR, CBC, CMP, CRP #### [address] Leukocyte esterase Test strip Ql (U) Negative Normal Negative [facility] Comment on above: Order Comment: Name Collection Type:: Clean-Voided Midstream Performed By: #### H BCAB, HBSAG, HCV RX PCR, HBSAB #### [facility] , #### ADDONUAPLUS, ESR, CBC, CMP, CRP #### [address] Nitrite,Urine Negative Normal Negative [facility] Comment on above: Order Comment: Name Collection Type:: Clean-Voided Midstream Performed By: #### H BCAB, HBSAG, HCV RX PCR, HBSAB #### [facility] , #### ADDONUAPLUS, ESR, CBC, CMP, CRP #### [address] Occult Blood,Urine Negative Normal Negative [facility] Comment on above: Order Comment: Name Collection Type:: Clean-Voided Midstream Performed By: #### H BCAB, HBSAG, HCV RX PCR, HBSAB #### [facility] , #### ADDONUAPLUS, ESR, CBC, CMP, CRP #### [address] pH (U) 5.5 [pH] Normal 5.0-9.0 [facility] Comment on above: Order Comment: Name Collection Type:: Clean-Voided Midstream Performed By: #### H BCAB, HBSAG, HCV RX PCR, HBSAB #### [facility] , #### ADDONUAPLUS, ESR, CBC, CMP, CRP #### [address] Protein,Urine Negative Normal Negative [facility] Comment on above: Order Comment: Name Collection Type:: Clean-Voided Midstream Performed By: #### H BCAB, HBSAG, HCV RX PCR, HBSAB #### [facility] , #### ADDONUAPLUS, ESR, CBC, CMP, CRP #### [facility] [address] [place] [address] RBC,Urine 3-4 Normal 0-4 [facility] Comment on above: Order Comment: Name Collection Type:: Clean-Voided Midstream Performed By: #### H BCAB, HBSAG, HCV RX PCR, HBSAB #### [facility] , #### ADDONUAPLUS, ESR, CBC, CMP, CRP #### [address] Specificy [place],Urine 1.021 Normal 1.001-1.030 [facility] Comment on above: Order Comment: Name Collection Type:: Clean-Voided Midstream Performed By: #### H BCAB, HBSAG, HCV RX PCR, HBSAB #### [facility] , #### ADDONUAPLUS, ESR, CBC, CMP, CRP #### [address] Squamous Epithelial Cell,Urine 5-9 High 0-2 [facility] Comment on above: Order Comment: Name Collection Type:: Clean-Voided Midstream Performed By: #### H BCAB, HBSAG, HCV RX PCR, HBSAB #### [facility] , #### ADDONUAPLUS, ESR, CBC, CMP, CRP #### [facility] [address] [place] [address] Urobilinogen,Urine Normal Normal Normal [facility] Comment on above: Order Comment: Name Collection Type:: Clean-Voided Midstream Performed By: #### H BCAB, HBSAG, HCV RX PCR, HBSAB #### [facility] , #### ADDONUAPLUS, ESR, CBC, CMP, CRP #### [facility] [address] [place] [id number] [facility] WBC,Urine 5-9 High 0-4 [facility] Comment on above: Order Comment: Name Collection Type:: Clean-Voided Midstream Performed By: #### H BCAB, HBSAG, HCV RX PCR, HBSAB #### [facility] , #### ADDONUAPLUS, ESR, CBC, CMP, CRP #### [facility] [address] [place] [address] Erythrocyte Sedimentation Ra raymond 06-22-2022 ESR (Bld) [Velocity] 36 mm/h High 0-29 [facility] Comment on above: Result Comment: PERF ORMED BY: [place] [address] PATHOLOGIST CANDLE MOLDER EULALIA OLSEN M.D. Performed By: #### A DNA, C4, GERONIMO, CH50, C3, LOZOYA #### [facility] , Hep C Ab wRfx to Qnt PCRon 0 06-22-2022 Hepatitis C Virus Antibody Non-Reactive Normal Non Reactive [facility] Comment on above: Performed By: #### A DNA, C4, GERONIMO, CH50, C3, LOZOYA #### [facility] , Interpretation Hepatitis C Normal . [facility] Comment on above: Result Comment: Not infected with HCV unless early or acute infection is suspected (which may be delayed in an immunocompromised individual), or other evidence exists to indicate HCV infection. Performed By: #### A DNA, C4, GERONIMO, CH50, C3, LOZOYA #### [facility] , Hepatitis B Core Antibodyon 06-22-2022 Hepatitis B Core Antibody Negative Normal Negative [facility] Comment on above: Result Comment: Perf ormed at: [facility] [id number] Funeral Arranger: Charlie Arevalo PhD, Phone: [phone] Performed By: #### A DNA, C4, GERONIMO, CH50, C3, LOZOYA #### [facility] , Hepatitis B Surface Antibody on 06-22-2022 Hepatitis B Surface Antibody Non-Reactive Normal . [facility] Comment on above: Result Comment: Non Reactive: Inconsistent with immunity, less than 10 mIU/mL Reactive: Consistent with immunity, greater than 9.9 mIU/mL Performed By: #### A DNA, C4, GERONIMO, CH50, C3, LOZOYA #### [facility] , Hepatitis B Surface Antigeno n 06-22-2022 HBsAg Screen Negative Normal Negative [facility] Comment on above: Result Comment: PERF ORMED BY: [place] [address] PATHOLOGIST CANDLE MOLDER EULALIA OLSEN M.D. Performed By: #### A DNA, C4, GERONIMO, CH50, C3, LOZOYA #### [facility] , XR chest 2V*on 06-22-2022 XR chest 2V* [place] [address] XRay Report Signed Patient: Cielo Ray MR#: [id number] 66 : 1965 Acct:[id number] Age/Sex: 56 / F ADM Date: 06/22/22 Loc: [facility] Room: Type: [facility] Attending Dr: Esdras Bonilla MD Copies to: [...] Vitale Jr., D.O.06/22/2022 4:08 PM Dictation Location: [place] [address] Transcribed By: [facility] 06/22/22 1608 Dictated By: Cr Vitale Jr, DO 06/22/22 1608 Signed By: 06/22/22 1608 Normal [facility] XR hand BI 2Von 06-22-2022 XR hand BI 2V [facility] [address] [place] [id number] XRay Report Signed Patient: Cielo Ray MR#: [id number] 66 : 1965 Acct:[id number] Age/Sex: 56 / F ADM Date: 06/22/22 Loc: [facility] Room: Type: [facility] Attending Dr: Esdras Bonilla MD Copies to: [...] PROCESS. Impression dictated by: Cr Vitale Jr., D.OHong06/22/2022 4:12 PM Dictation Location: [place] [address] Transcribed By: [facility] 06/22/22 1612 Dictated By: Cr Vitale Jr, DO 06/22/22 1608 Signed By: 06/22/[address] [facility] VC CONSULT FOLLOWUPon 2021 VC CONSULT FOLLOWUP Patient: JEAN PIERRE RAY Exam Date: 02/02/2022 : 1965 Gender:F Ordering : DR KEILA DE LA FUENTE M.D. Admission #: [id number] Family : Order #: [id number] CLICK HERE TO VIEW EXAM RADIOLOGY REPORT [...] Hayden Perla M.D. on 02/02/2022 at 15:55 Normal [facility] VC EXT VENOUS LT LIMITEDon 1 04-05-2021 VC EXT VENOUS LT LIMITED Patient: CIELO RAY Exam Date: 02/02/2022 : 1965 Gender:F Ordering : DR KEILA DE LA FUENTE M.D. Admission #: [id number] Family : Order #: [id number] CLICK HERE TO VIEW EXAM RADIOLOGY REPORT [...] Perla M.D. on 02/02/2022 at 15:51 Normal [facility] VC ENDOVENOUS ABL 1ST V LTon 01-26-2022 VC ENDOVENOUS ABL 1ST V LT Patient: CIELO RAY Exam Date: 01/26/2022 : 1965 Gender:F Ordering : DR KEILA DE LA FUENTE M.D. Admission #: [id number] Family : Order #: [id number] CLICK HERE TO VIEW EXAM RADIOLOGY REPORT [...] written consent was obtained by and Dameon Stewart assisted. Time out procedure [...] MD on 01/26/2022 at 16:08 Normal [facility] ALBUMINon 01-14-2022 Albumin [Mass/Vol] 3.6 g/dL Normal 3.4-5.0 [facility] Comment on above: Performed By: #### C JENELLE, ALB, ALT, CRP ####[facility] [address] [place] [address]Dr. Wilbert Gomez CBC AUTO DIFFon 01-14-2022 BASO # 0.0 103/ul Normal 0.0-0.1 [facility] Comment on above: Performed By: #### C BC #### [facility] [address] [place] [address] Dr. Wilbert Gomez Basophils/100 WBC (Bld) 0.5 % Normal 0.2-2.0 [facility] Comment on above: Performed By: #### C BC #### [facility] [address] [place] [address] Dr. Wilbert Gomez EO # 0.3 103/ul Normal 0.0-0.7 [facility] Comment on above: Performed By: #### C BC #### [facility] [address] [place] [address] Dr. Wilbert Gomez Eosinophils/100 WBC (Bld) 4.2 % Normal 0.9-7.0 [facility] Comment on above: Performed By: #### C BC #### [facility] [address] [place] [address] Dr. Wilbert Gomez Erythrocyte distribution width (RBC) [Ratio] 13.6 % Normal 11.0-15.0 [facility] Comment on above: Performed By: #### C BC #### [facility] [address] [place] [address] Dr. Wilbert Gomez Hematocrit (Bld) [Volume fraction] 36.8 % Normal 36.0-48.0 [facility] Comment on above: Performed By: #### C BC #### [facility] [address] [place] [address] Dr. Wilbert Gomez Hemoglobin (Bld) [Mass/Vol] 12.1 g/dL Normal 12.0-16.0 [facility] Comment on above: Performed By: #### C BC #### [facility] [address] [place] [address] Dr. Wilbert Gomze IG # 0.02 10e3/ul Normal 0.00-0.03 [facility] Comment on above: Performed By: #### C BC #### [facility] [address] [place] [address] Dr. Wilbert Gomez IG % 0.3 % Normal 0.0-0.5 [facility] Comment on above: Performed By: #### C BC #### [facility] [address] [place] [address] Dr. Wilbert Gomez LYMPH # 2.6 103/ul Normal 1.2-3.8 [facility] Comment on above: Performed By: #### C BC #### [facility] [address] [place] [address] Dr. Wilbert Gomez Lymphocytes/100 WBC (Bld) 35.7 % Normal 20.5-60.0 [facility] Comment on above: Performed By: #### C BC #### [facility] [address] [place] [address] Dr. Wilbert Gomez MANUAL DIFF REQ NO Normal [facility] Comment on above: Performed By: #### C BC #### [facility] [address] [place] [address] Dr. Wilbert Gomez MCH (RBC) [Entitic mass] 31.7 pg Normal 26.7-34.0 [facility] Comment on above: Performed By: #### C BC #### [facility] [address] [place] [address] Dr. Wilbert Gomez MCHC (RBC) [Mass/Vol] 32.9 g/dL Normal 29.9-35.2 [facility] Comment on above: Performed By: #### C BC #### [facility] [address] [place] [address] Dr. Wilbert Gomez MCV (RBC) [Entitic vol] 96.3 fL Normal 81.0-99.0 [facility] Comment on above: Performed By: #### C BC #### [facility] [address] [place] [address] Dr. Wilbert Gomez MONO # 0.5 103/ul Normal 0.3-0.8 [facility] Comment on above: Performed By: #### C BC #### [facility] [address] [place] [address] Dr. Wilbert Gomez Monocytes/100 WBC (Bld) 6.2 % Normal 1.7-12.0 [facility] Comment on above: Performed By: #### C BC #### [facility] [address] [place] [address] Dr. Wilbert Gomez NEUT # 3.9 103/ul Normal 1.4-6.5 [facility] Comment on above: Performed By: #### C BC #### [facility] [address] [place] [address] Dr. Wilbert Gomez Neutrophils/100 WBC (Bld) 53.1 % Normal 43.0-75.0 [facility] Comment on above: Performed By: #### C BC #### [facility] [address] [place] [address] Dr. Wilbert Gomez Platelet mean volume (Bld) [Entitic vol] 8.9 fL Critically low 9.5-13.5 [facility] Comment on above: Performed By: #### C BC #### [facility] [address] [place] [address] Dr. Wilbert Gomez PLT 275 103/ul Normal 150-450 [facility] Comment on above: Performed By: #### C BC #### [facility] [address] [place] [address] [address] Wilbert Gomez RBC 3.82 106/ul Critically low 4.20-5.40 [facility] Comment on above: Performed By: #### C BC #### [facility] [address] [place] [address] [address] Wilbert oGmez WBC 7.3 103/ul Normal 4.0-11.0 [facility] Comment on above: Performed By: #### C BC #### [facility] [address] [place] [address] [address] Wilbert Gomez CREATININEon 01-14-2022 Creatinine [Mass/Vol] 0.79 mg/dL Normal 0.55-1.02 [facility] Comment on above: Performed By: #### C JENELLE, ALB, ALT, CRP ####[facility] [address] [place] [address]DrHong Gomez EGFR-AF QATARI >60 Normal >=60 [facility] Comment on above: Performed By: #### C JENELLE, ALB, ALT, CRP ####[facility] [address] [place] [address]DrHong Gomez EGFR-NON AF QATARI >60 Normal >=60 [facility] Comment on above: Performed By: #### C JENELLE, ALB, ALT, CRP ####[facility] [address] [place] [address]DrHong Gomez CRPon 01-14-2022 CRP 1.1 mg/dL Critically high <=1.0 [facility] Comment on above: Performed By: #### C JENELLE, ALB, ALT, CRP ####[facility] [address] [place] [address]DrHong Gomez SED RATE SMITHWICKERGREN 2021 SED RATE 37 mm/hr Critically high <=30 [facility] Comment on above: Performed By: #### C BC #### [facility] [address] [place], [place] [address] Dr. Wilbert Gomez [facility] 01-14-2022 ALT [Catalytic activity/Vol] 30 U/L Normal 14-59 [facility] Comment on above: Performed By: #### C JENELLE, ALB, ALT, CRP ####[facility] [address] [place], [place] [address]GgDr. Wilbert Gomez VC CONSULT FOLLOWUPon 2021 VC CONSULT FOLLOWUP Patient: JEAN PIERRE RAY Exam Date: 12/29/2021 : 1965 Gender:F Ordering : DR KEILA DE LA FUENTE M.D. Admission #: [id number] Family : Order #: [id number] CLICK HERE TO VIEW EXAM RADIOLOGY REPORT [...] Fuente MD on 12/29/2021 at 15:41 Normal [facility] VC EXT VENOUS LT LIMITEDon 1 02-28-2021 VC EXT VENOUS LT LIMITED Patient: CIELO RAY Exam Date: 12/29/2021 : 1965 Gender:F Ordering : DR KEILA DE LA FUENTE M.D. Admission #: [id number] Family : Order #: [id number] CLICK HERE TO VIEW EXAM RADIOLOGY REPORT [...] Fuente MD on 12/29/2021 at 15:34 Normal [facility] VC ENDOVENOUS ABL 1ST V LTon 12-22-2021 VC ENDOVENOUS ABL 1ST V LT Patient: CIELO RAY Exam Date: 12/22/2021 : 1965 Gender:F Ordering : DR KEILA DE LA FUENTE M.D. Admission #: [id number] Family : Order #: [id number] CLICK HERE TO VIEW EXAM RADIOLOGY REPORT [...] La Fuente MD on 12/22/2021 at 16:10 [facility] COMP CONSULTATIONon 11-30 COMP CONSULTATION Patient: KARINA RAY Exam Date: 11/30/2021 : 1965 Gender:F Ordering : DR KEILA DE LA FUENTE M.D. Admission #: [id number] Family : Order #: [id number] CLICK HERE TO VIEW EXAM RADIOLOGY REPORT [...] great saphenous and small saphenous veins. Bilateral jordan worker veins and incompetent branch saphenous varicosities. PHYSICAL [...] arterial disease 5. CEAP: C2, EC, AP, HI PLAN: 1. Continued use of compression stockings 2. Elevated legs and increased physical activity symptomatic relief 3. Endovenous laser ablation of left great saphenous left small saphenous veins, left and right jordan worker veins. 4. Microfoam chemical ablation of dilated, incompetent branch saphenous varicosities within right and left lower extremities Nurse notes, history and physical were reviewed and confirmed, see attached forms. The nurse was present throughout the physical exam and consultation Dictated by: Hayden Perla M.D. on 12/01/2021 at 08:06 Approved by: Hayden Perla M.D. on 12/01/2021 at 09:12 Normal [facility] VC VENOUS REFLUX MICHELLE LMTon 1 VC VENOUS REFLUX MICHELLE LMT Patient: CIELO RAY Exam Date: 11/30/2021 : 1965 Gender:F Ordering : DR KEILA DE LA FUENTE M.D. Admission #: [id number] Family : Order #: [id number] CLICK HERE TO VIEW EXAM RADIOLOGY REPORT [...] treated GSV. Incomptent varicose vein associated with jordan worker distal thigh measures 6.2 mm with 2.6s [...] thrombus. Compressibility: Normal. Flow: Deep venous reflux. 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 2. Dilated, incompetent jordan worker veins and branch saphenous varicosities bilaterally. 3. Consultation for endovenous ablation is recommended. Dictated by: Hayden Perla M.D. on 11/30/2021 at 15:51 Approved by: Hayden Perla M.D. on 11/30/2021 at 15:53 Normal [facility] INSULINon 10-09-2021 Insulin 11.9 uIU/mL Normal 2.6-24.9 [facility] Comment on above: Performed By: #### I NSULIN ####[facility] [address] [place] [address]Dr. Wilbert Gomez T4, T3U, FTI LABCORPon 10-09 Free Thyroxine Index 2.1 Normal 1.2-4.9 [facility] Comment on above: Performed By: #### T HYLC ####[facility] [address] [place] [address]Dr. Wilbert Gomez T3 Uptake 29 % Normal 24-39 [facility] Comment on above: Performed By: #### T HYLC ####[facility] [address] [place] [address]Dr. Wilbert Gomez T4 [Mass/Vol] 7.4 ug/dL Normal 4.5-12.0 [facility] Comment on above: Performed By: #### T HYLC ####[facility] [address] [place] [address]Dr. Wilbert Gomez GLYCOHEMOGLOBIN A1Con 2021 ADA RECOMMENDATION SEE BELOW Normal [facility] Comment on above: Result Comment: ADA RECOMMENDED LIMIT 4.0 - 6.0 ADA THERAPEUTIC TARGET < 7.0 ACTION SUGGESTED > 7.0 Performed By: #### A 1C ####[facility] [address] [place] [address]Dr. Wilbert Gomez Glucose [Mass/Vol] 111 mg/dL Normal [facility] Comment on above: Performed By: #### A 1C ####[facility] [address] [place] [address]DrHong Gomez HbA1c (Bld) [Mass fraction] 5.5 % Normal 4.5-6.2 [facility] Comment on above: Performed By: #### A 1C ####[facility] [address] [place] [address]DrHong Gomez IRONon 10-08-2021 Iron [Mass/Vol] 67.0 ug/dL Normal 50.0-170.0 [facility] Comment on above: Performed By: #### I SOLA #### [facility] [address] [place], [place] [address] Dr. Wilbert Gomez LIPID PROFILEon 10-08-2021 CHOL-HDL RATIO NORM SEE BELOW Normal [facility] Comment on above: Result Comment: 3.3 - 4.4 LOW RISK 4.4 - 7.1 AVERAGE RISK 7.1 - 11.0 MODERATE RISK >11.0 HIGH RISK Performed By: #### L IPID, TSH, CMP ####[facility] [address] [place] [id number] Gomez Cholesterol [Mass/Vol] 205 mg/dL Critically high <=200 [facility] Comment on above: Performed By: #### L IPID, TSH, CMP ####[facility] [address]yi[address] [place] [address]DrHong Gomez Cholesterol in HDL [Mass/Vol] 81 mg/dL Critically high 40-60 [facility] Comment on above: Performed By: #### L IPID, TSH, CMP ####[facility] [address] [place] [address]DrHong Gomez Cholesterol in LDL [Mass/Vol] 108.0 mg/dL Normal [facility] Comment on above: Performed By: #### L IPID, TSH, CMP ####[facility] [address] [place] [address]DrHong Gomez Cholesterol.total/Ch olesterol in HDL [Mass ratio] 2.5 {ratio} Normal [facility] Comment on above: Performed By: #### L IPID, TSH, CMP ####[facility] [address] [place] [address]Dr. Wilbert Gomez HDL NORMAL > or = 60 mg/dl - LO W CARDIOVASCULAR RISK <40 mg/dl - HIGH CARDIOVASCULAR RISK Normal [facility] Comment on above: Performed By: #### L IPID, TSH, CMP ####[facility] [address]fsf[address] [place] [address]Dr. Wilbert Gomez LDL CALC NORMAL SEE BELOW Normal [facility] Comment on above: Result Comment: <100 mg/dl OPTIMAL 100 - 129 mg/dl NEAR OR ABOVE OPTIMAL 130 - 159 mg/dl BORDERLINE HIGH 160 - 189 mg/dl HIGH >190 mg/dl VERY HIGH Performed By: #### L IPID, TSH, CMP ####[facility] [address] [place] [address]Dr. Wilbert Gomez Triglyceride [Mass/Vol] 80 mg/dL Normal <=150 [facility] Comment on above: Performed By: #### L IPID, TSH, CMP ####[facility] [address] [place] [address]Dr. Wilbert Gomez VLDL CALC 16.0 mg/dL Normal [facility] Comment on above: Performed By: #### L IPID, TSH, CMP ####[facility] Af[address]obabio[address] [place] [address]Dr. Wilbert Gomez PROF 14(COMP METB)on 022 Albumin [Mass/Vol] 3.6 g/dL Normal 3.4-5.0 [facility] Comment on above: Performed By: #### L IPID, TSH, CMP ####[facility] E[address] [place], [place] [address]Dr. Wilbert Gomez Albumin/Globulin [Mass ratio] 1.0 {ratio} Normal [facility] Comment on above: Performed By: #### L IPID, TSH, CMP ####[facility] [address]uxqbs[address] [place] [address]Dr. Wilbert Gomez ALP [Catalytic activity/Vol] 86 U/L Normal 46-116 [facility] Comment on above: Performed By: #### L IPID, TSH, CMP ####[facility] Ax[address]bluhdb[address] [place] [address]Dr. Wilbert Gomez ALT [Catalytic activity/Vol] 27 U/L Normal 14-59 [facility] Comment on above: Performed By: #### L IPID, TSH, CMP ####[facility] Nrptyfdxfg[address] [place] [address]Dr. Wilbert Gomez Anion gap [Moles/Vol] 12.1 mmol/L Normal [facility] Comment on above: Performed By: #### L IPID, TSH, CMP ####[facility] Es[address]pesl[address] [place] [address]Dr. Wilbert Gomez AST [Catalytic activity/Vol] 23 U/L Normal 15-37 [facility] Comment on above: Performed By: #### L IPID, TSH, CMP ####[facility] [address] [place], [place] [address]Dr. Wilbert Gomez Bilirubin [Mass/Vol] 0.6 mg/dL Normal 0.2-1.0 [facility] Comment on above: Performed By: #### L IPID, TSH, CMP ####[facility] [address] [place], [place] [address]Dr. Wilbert Gomez Calcium [Mass/Vol] 8.7 mg/dL Normal 8.5-10.1 [facility] Comment on above: Performed By: #### L IPID, TSH, CMP ####[facility] Hxhibcm[address] [place], [place] [address]Dr. iWlbert Gomez Chloride [Moles/Vol] 104 mmol/L Normal 98-107 [facility] Comment on above: Performed By: #### L IPID, TSH, CMP ####[facility] [address] [place], [place] [address]Dr. Wilbert Gomez CO2 [Moles/Vol] 26.8 mmol/L Normal 21.0-32.0 [facility] Comment on above: Performed By: #### L IPID, TSH, CMP ####[facility] T[address] [place], [place] [address]Dr. Wilbert Gomez Creatinine [Mass/Vol] 0.85 mg/dL Normal 0.55-1.02 [facility] Comment on above: Performed By: #### L IPID, TSH, CMP ####[facility] [address] [place] [address]Dr. Wilbert Gomez EGFR-AF QATARI >60 Normal >=60 [facility] Comment on above: Performed By: #### L IPID, TSH, CMP ####[facility] [address] [place] [address]Dr. Wilbert Gomez EGFR-NON AF QATARI >60 Normal >=60 [facility] Comment on above: Performed By: #### L IPID, TSH, CMP ####[facility] [address]cst[address] [place] [address]Dr. Wilbert Gomez Globulin (S) [Mass/Vol] 3.7 g/dL Normal [facility] Comment on above: Performed By: #### L IPID, TSH, CMP ####[facility] [address] [place] [address]Dr. Wilbert Gomez Glucose [Mass/Vol] 92 mg/dL Normal 74-106 [facility] Comment on above: Performed By: #### L IPID, TSH, CMP ####[facility] [address]nnhpuv[address] [place] [address]Dr. Wilbert Gomez Potassium [Moles/Vol] 3.9 mmol/L Normal 3.5-5.1 [facility] Comment on above: Performed By: #### L IPID, TSH, CMP ####[facility] Yer[address] [place], [place] [address]Dr. Wilbert Gomez Protein [Mass/Vol] 7.3 g/dL Normal 6.4-8.2 [facility] Comment on above: Performed By: #### L IPID, TSH, CMP ####[facility] [address]fs[address] [place] [address]Dr. Wilbert Gomez Sodium [Moles/Vol] 139 mmol/L Normal 136-145 [facility] Comment on above: Performed By: #### L IPID, TSH, CMP ####[facility] [address] [place], [place] [address]Dr. Wilbert Gomez Urea nitrogen [Mass/Vol] 10.0 mg/dL Normal 7.0-18.0 [facility] Comment on above: Performed By: #### L IPID, TSH, CMP ####[facility] [address]wvwwreuu[address] [place] [address]Dr. Yilan Gomez Urea nitrogen/Creatinine [Mass ratio] 11.8 mg/mg Normal [facility] Comment on above: Performed By: #### L IPID, TSH, CMP ####[facility] [address] [place], [place] [address]JaDr. Wilbert Gomez TSHon 10-08-2021 TSH 0.731 uIU/mL Normal 0.358-3.740 [facility] Comment on above: Performed By: #### L IPID, TSH, CMP ####[facility] [address]fl[address] [place], [place] [address]OuDr. Wilbert Gomez ALBUMINon 07-30-2021 Albumin [Mass/Vol] 3.8 g/dL Normal 3.4-5.0 [facility] Comment on above: Performed By: #### C JENELLE, ALT, CRP, ALB #### [facility] [address] [place] [address] Dr. Wilbert Gomez CBC AUTO DIFFon 07-30-2021 BASO # 0.0 103/ul Normal 0.0-0.1 [facility] Comment on above: Performed By: #### C BC #### [facility] [address] [place] [address] Dr. Wilbert Gomez Basophils/100 WBC (Bld) 0.6 % Normal 0.2-2.0 [facility] Comment on above: Performed By: #### C BC #### [facility] [address] [place] [address] Dr. Wilbert Gomez EO # 0.2 103/ul Normal 0.0-0.7 [facility] Comment on above: Performed By: #### C BC #### [facility] [address] [place] [address] Dr. Wilbert Gomez Eosinophils/100 WBC (Bld) 4.1 % Normal 0.9-7.0 [facility] Comment on above: Performed By: #### C BC #### [facility] [address] [place] [address] Dr. Wilbert Gomez Erythrocyte distribution width (RBC) [Ratio] 14.0 % Normal 11.0-15.0 [facility] Comment on above: Performed By: #### C BC #### [facility] [address] [place] [address] [address] Wilbert Gomez Hematocrit (Bld) [Volume fraction] 37.4 % Normal 36.0-48.0 [facility] Comment on above: Performed By: #### C BC #### [facility] [address] [place] [address] [address] Wilbert Gomez Hemoglobin (Bld) [Mass/Vol] 12.2 g/dL Normal 12.0-16.0 [facility] Comment on above: Performed By: #### C BC #### [facility] [address] [place] [address] Dr. Wilbert Gomez IG # 0.01 10e3/ul Normal 0.00-0.03 [facility] Comment on above: Performed By: #### C BC #### [facility] [address] [place] [address] Dr. Wilbert Gomez IG % 0.2 % Normal 0.0-0.5 [facility] Comment on above: Performed By: #### C BC #### [facility] [address] [place] [address] Dr. Wilbert Gomez LYMPH # 1.6 103/ul Normal 1.2-3.8 [facility] Comment on above: Performed By: #### C BC #### [facility] [address] [place] [address] Dr. Wilbert Gomez Lymphocytes/100 WBC (Bld) 33.4 % Normal 20.5-60.0 [facility] Comment on above: Performed By: #### C BC #### [facility] [address] [place] [address] Dr. Wilbert Gomez MANUAL DIFF REQ NO Normal [facility] Comment on above: Performed By: #### C BC #### [facility] [address] [place] [address] Dr. Wilbert Gomez MCH (RBC) [Entitic mass] 31.9 pg Normal 26.7-34.0 [facility] Comment on above: Performed By: #### C BC #### [facility] [address] [place] [address] [address] Wilbert Gomez MCHC (RBC) [Mass/Vol] 32.6 g/dL Normal 29.9-35.2 [facility] Comment on above: Performed By: #### C BC #### [facility] [address] [place] [address] [address] Wilbert Gomez MCV (RBC) [Entitic vol] 97.7 fL Normal 81.0-99.0 [facility] Comment on above: Performed By: #### C BC #### [facility] [address] [place] [address] Dr. Wilbert Gomez MONO # 0.5 103/ul Normal 0.3-0.8 [facility] Comment on above: Performed By: #### C BC #### [facility] [facility] [address] [place] [address] Dr. Wilbert Gomez Monocytes/100 WBC (Bld) 11.0 % Normal 1.7-12.0 [facility] Comment on above: Performed By: #### C BC #### [facility] [address] [place] [address] Dr. Wilbert Gomez NEUT # 2.4 103/ul Normal 1.4-6.5 [facility] Comment on above: Performed By: #### C BC #### [facility] [address] [place] [address] Dr. Wilbert Gomez Neutrophils/100 WBC (Bld) 50.7 % Normal 43.0-75.0 [facility] Comment on above: Performed By: #### C BC #### [facility] [address] [place] [address] Dr. Wilbert Gomez Platelet mean volume (Bld) [Entitic vol] 8.8 fL Critically low 9.5-13.5 [facility] Comment on above: Performed By: #### C BC #### [facility] [address] [place] [address] Dr. Wilbert Gomez PLT 228 103/ul Normal 150-450 [facility] Comment on above: Performed By: #### C BC #### [facility] [address] [address] [address] Wilbert Gomez RBC 3.83 106/ul Critically low 4.20-5.40 [facility] Comment on above: Performed By: #### C BC #### [facility] [address] [place] [address] Dr. Wilbert Gomez WBC 4.8 103/ul Normal 4.0-11.0 [facility] Comment on above: Performed By: #### C BC #### [facility] [address] [place] [address] Dr. Wilbert Gomez CREATININEon 07-30-2021 Creatinine [Mass/Vol] 0.87 mg/dL Normal 0.55-1.02 [facility] Comment on above: Performed By: #### C JENELLE, ALT, CRP, ALB #### [facility] [address] [place] [address] Dr. Wilbert Gomez EGFR-AF QATARI >60 Normal >=60 [facility] Comment on above: Performed By: #### C JENELLE, ALT, CRP, ALB #### [facility] [address] [place] [address] Dr. Wilbert Gomez EGFR-NON AF QATARI >60 Normal >=60 [facility] Comment on above: Performed By: #### C JENELLE, ALT, CRP, ALB #### [facility] [address] [place] [address] Dr. Wilbert Gomez CRPon 07-30-2021 CRP 1.5 mg/dL Critically high <=1.0 [facility] Comment on above: Performed By: #### C JENELLE, ALT, CRP, ALB #### [facility] [address] [place] [address] Dr. Wilbert Gomez [facility] SED RATE 14 mm/hr Normal <=30 [facility] Comment on above: Performed By: #### S EDR #### [facility] [address] [place] [address] Dr. Wilbert Gomez SGPTon 07-30-2021 ALT [Catalytic activity/Vol] 38 U/L Normal 14-59 [facility] Comment on above: Performed By: #### C JENELLE, ALT, CRP, ALB #### [facility] [address] [address] [address] Wilbert Gomez MG MAMM SCREEN 3D MICHELLE CADon 07-16-2021 MG MAMM SCREEN 3D MICHELLE CAD Patient: CIELO RAY Exam Date: 07/16/2021 : 1965 Gender:F Ordering : [facility] Admission #: [id number] Family : Order #: [id number] CLICK HERE TO VIEW EXAM RADIOLOGY REPORT [...] breast cancer at age 55. LOCATION: [facility] BREAST COMPOSITION: Heterogeneously dense,which may obscure [...] Perla M.D. on 07/17/2021 at 09:49 Normal [facility] Vital Signs Date Time Vital Sign Value Performing Clinician Doriani litwei 01-26-2024 16:45-0500 Body height 167.6 cm Karolina Boothe DPM FACFAS Work Phone: [facility] 01-26-2024 16:45-0500 Body mass index (BMI) [Ratio] 29.38 kg/m2 Karolina Boothe DPM FACFAS Work Phone: [facility] 01-26-2024 16:45-0500 Body weight 82.56 kg Karolina Dolce DPM FACFAS Work Phone: [facility] 01-26-2024 16:45-0500 Diastolic blood pressure 75 mm[Hg] Karolina Dolce DPM FACFAS Work Phone: [facility] 01-26-2024 16:45-0500 Heart rate 82 /min Karolina Dolce DPM FACFAS Work Phone: [facility] 01-26-2024 16:45-0500 Systolic blood pressure 130 mm[Hg] Karolina Dolce DPM FACFAS Work Phone: [facility] 10-27-2023 15:33-0400 Body height 167.6 cm Karolina Dolce DPM FACFAS Work Phone: [facility] 10-27-2023 15:33-0400 Body mass index (BMI) [Ratio] 29.38 kg/m2 Karolina Dolce DPM FACFAS Work Phone: [facility] 10-27-2023 15:33-0400 Body weight 82.56 kg Karolina Dolce DPM FACFAS Work Phone: [facility] 10-27-2023 15:33-0400 Diastolic blood pressure 74 mm[Hg] Karolina Dolce DPM FACFAS Work Phone: [facility] 10-27-2023 15:33-0400 Heart rate 80 /min Karolina Dolce DPM FACFAS Work Phone: [facility] 10-27-2023 15:33-0400 Systolic blood pressure 132 mm[Hg] Karolina Dolce DPM FACFAS Work Phone: [facility] Healthcare Encounters Encounter Date Encounter Type Care Provider Facility Start: 01-26-2024 End: 01-26-2024 Office outpatient visit 15 minutes Karolina R Dolce DPM FACFAS Work Phone: [facility] Comment on above: Metatarsal deformity , right (Primary Dx); Arciniega neuroma, right; Right foot pain Start: 01-26-2024 End: 01-26-2024 ambulatory KAROLINA R DOLCE Not Available Start: 01-26-2024 End: 01-26-2024 Bamboo flowsheet Karolina R Dolce DPM FACFAS Work Phone: [facility] Start: 01-26-2024 End: 01-26-2024 Bamboo flowsheet Karolina R Dolce DPM FACFAS Work Phone: [facility] Start: 10-27-2023 End: 10-27-2023 Office outpatient visit 25 minutes Karolina R Dolce DPM FACFAS Work Phone: [facility] Comment on above: Arciniega neuroma, righ t (Primary Dx); Metatarsal deformity, right; 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) ([facility]) Start: 10-27-2023 End: 10-27-2023 ambulatory KAROLINA R DOLCE Not Available Start: 10-27-2023 End: 10-27-2023 Bamboo flowsheet Karolina R Dolce DPM FACFAS Work Phone: [facility] Start: 10-27-2023 End: 10-27-2023 Bamboo flowsheet Karolina R Dolce DPM FACFAS Work Phone: [facility] Start: 09-14-2023 End: 09-17-2023 Pre-admission assessment Karolina R Dolce [facility] Start: 09-13-2023 End: 09-13-2023 ambulatory KAROLINA R DOLCE Not Available Start: 08-25-2023 End: 08-25-2023 ambulatory KAROLINA R DOLCE Not Available Start: 07-26-2023 End: 07-26-2023 ambulatory KAROLINA R DOLCE Not Available Start: 07-05-2023 End: 07-05-2023 ambulatory KAROLINA R DOLCE Not Available Start: 06-22-2022 End: 06-22-2022 ambulatory Esdras Bonilla Facility:[facility] Start: 06-02-2022 ambulatory TERESA DE Facility: [facility] Start: 02-02-2022 End: 02-03-2022 ambulatory TERESA DE Facility:[facility] Start: 01-26-2022 End: 01-27-2022 ambulatory TERESA DE Facility:[facility] Start: 01-14-2022 End: 01-15-2022 ambulatory TERESA DE Facility:[facility] Start: 12-29-2021 End: 12-30-2021 ambulatory TERESA DE Facility:[facility] Start: 12-22-2021 End: 12-23-2021 ambulatory TERESA DE Facility:[facility] Start: 11-30-2021 End: 12-01-2021 ambulatory TERESA DE Facility:[facility] Start: 10-09-2021 Encounter for genera l adult medical examination without abnormal findings [facility] Start: 10-08-2021 End: 10-09-2021 ambulatory TERESA DE Facility:[facility] Start: 10-08-2021 End: 10-09-2021 Encounter for general adult medical examination without abnormal findings TERESA DE Facility:[facility] Start: 07-30-2021 End: 07-31-2021 ambulatory ERIKA MCCRACKEN Facility:[facility] Start: 07-16-2021 End: 07-17-2021 ambulatory TERESA DE Facility:[facility] Plan of Treatment Date Care Activity Detail Author Start: 01-26-2024 End: 01-26-2024 Patient encounter procedure 01/26/2024 4:50 PM EST Office Visit [facility] [address] [place] [phone] Karolina Boothe R, DPM FACFAS [address] [place] [address] Arrived [facility] Comment on above: Arrived Start: 10-27-2023 End: 10-27-2023 Patient encounter procedure 10/27/2023 3:30 PM EDT Office Visit [facility] [address] [place] [phone] Karolina Boothe R, DPM FACFAS [address] [place] [address] Arrived [facility] Comment on above: Arrived Start: 10-16-2023 Influenza vaccination Influenza Vacc ine (#1) [facility] Healthcare Start: 2005 Screening for malign ant neoplasm of breast Mammogram [facility] Start: 11-13-1995 Screening for malign ant neoplasm of cervix [facility] Start: 1986 Screening for malign ant neoplasm of cervix Pap Smear [facility] Start: 1965 Screening for malign ant neoplasm of colon [facility] Healthcare Payers Date Payer Category Payer [facility] BCBS Memb er Subscriber Plan / Payer (Effective 2023-Present) Name: Cielo Ray Relation to Subscriber: Self Name: Cielo Ray Blake Payer ID: Not on file Type: Not on file Address: [address] [place] [id number] 2023 Unknown BCBS BCBS xxxxxx [id number] 2023-Present [phone] [address] [place] [id number] 2023 Unknown [id number] 2022 Self-pay 1965 Unknown [id number] 9.2.593 1965 Unknown [id number] 2.16.840.1.973956.3.57 9.2.59 1965 Unknown [id number] 2.16.840.1.356694.3.57 9.2.593 1965 Unknown [id number] 2.16.840.1.530498.3.57 9.2.59 1965 Unknown [id number] 2.16.840.1.770978.3.57 9.2.593 1965 Unknown [id number] 2.16.840.1.583796.3.57 9.2.593 1965 Unknown [id number] 2.16.840.1.561156.3.57 9.2.593 1965 Unknown [id number] 2.16.840.1.547977.3.57 9.2.593 1965 Unknown [id number] 2.16.840.1.029536.3.57 9.2.593 1965 Unknown [id number] 2.16.840.1.052230.3.57 9.2.593 1965 Unknown [id number] 2.16.840.1.708166.3.57 9.2.1259 1965 Unknown [id number] 2.16.840.1.400281.3.57 9.2.1259 1965 Unknown [id number] 2.16.840.1.210522.3.57 9.2.1259 1965 Unknown [id number] 2.16.840.1.849473.3.57 9.2.1259 1965 Unknown [id number] 2.16.840.1.215894.3.57 9.2.1259 1965 Unknown [id number] 2.16.840.1.517301.3.57 9.2.1259 1965 Unknown [id number] 2.16.840.1.913882.3.57 9.2.1259 1959 Unknown [id number] Unknown [id number] 2.16.840.1.381145.3.57 9.2.531 Social History Date Type Detail Facility Tobacco smoking status [facility] Start: 09-13-2023 End: 01-26-2024 Sex Assigned At Female [facility] Start: 07-05-2023 Tobacco smoking stat us NHIS Never smoked tobacco [facility] Work Phone: Start: 07-05-2023 Tobacco use and exposure Smokeless tobacco non-user [facility] Start: 09-13-2023 End: 01-26-2024 Alcoholic beverage intake Defer [facility] Start: 09-13-2023 End: 01-26-2024 History of Social function [facility] Start: 1965 Sex assigned at Not on file [facility] History of Present illness Narrative 01-26-2024 Karolina Boothe DPM FACFAS - 01/26/2024 4:50 PM EST Note Date & Type Note Facility 01-26-2024 History of Presen t illness Narrative Images from the original note were not included. Patient: Cielo Ray : 1965 PCP: Paul Villatoro MD SUBJECTIVE This is a 58 y.o. female that presents today with a chief complaint of burning and tingling about the right 2nd interspace. Patient states they feel like they are walking on a rock in their shoe. They feel burning and tingling radiating to the lesser digits. They feel as if the sock is curled up in their shoe. This has progressively worsened over time. The patient has significant limitation in activities of daily living secondary to the pain. They have attempted numerous conservative therapies including: anti-inflammatory medications, shoe gear modifications, NSAIDs, to no avail. The patient rates the pain on a scale from 1-10 as an 8 with 10 being the worst pain of their lives. Allergies: Not on File Past Medical History: History reviewed. No pertinent past medical history. Medications: No current outpatient medications on file. Review of systems: Constitutional: Denies fever, chills, nausea, vomiting GI: Denies abdominal pain, cramping, loose stool, gastric ulcers Musculoskeletal: Denies low back pain, knee pain, systemic arthritis Neurologic: Denies burning, tingling, transient paralysis OBJECTIVE Physical Examination: DERM: Positive hair growth to b/l feet with good skin turgor noted. Negative openings in skin VASC: DP /PT were palpable bilateral. Capillary refill time < 3 seconds Digits 1-5 bilateral NEURO: Gilson Scott 5.07 monofilament was intact B/L. Vibratory sensation was intact B/L Musculoskeletal: Muscle strength was +5 over 5 all intrinsic and extrinsic muscles tested. There is significant pain with direct palpation the right 2nd interspace. Significant pain noted with lateral compression of the lesser metatarsals. Mild swelling noted within the interspace. Significant loss of plantar fat pad with prominent lesser metatarsal heads noted. There is no pain with range of motion of the ankle or subtalar joint. Mild gastrocnemius-soleus equinus. Radiographs: AP/MO/LAT: Diagnostic ultrasound: Diagnostic ultrasound 12 megahertz linear probe Hypoechoic neuroma about the 2nd interspace right foot ASSESSMENT 1. Metatarsal deformity, right 2. Arciniega neuroma, right PLAN The patient was educated on the etiology of Intermetatarsal neuroma right. I discussed conservative options including wider toe box shoes anti-inflammatory medications. As an attempted conservative care the patient was injected with 1 cc of 2% lidocaine plain and 1 cc of Kenalog 10 directly into the body of the neuroma right foot. Ultrasound was necessary to ensure exact placement into the hypoechoic neuroma body and to avoid injection into the underlying subcutaneous tissue. RADHA Morales documented in this encounter [facility] History of Present illness Narrative 10-27-2023 RADHA Morales - 10/27/2023 3:30 PM EDT Note Date & Type Note Facility 10-27-2023 History of Presen t illness Narrative Patient: Cielo Ray : 1965 PCP: Paul Villatoro MD SUBJECTIVE This is a 57 y.o. female that presents today for follow up MRI. Patient states she is doing much better she has no pain in shoe gear or in house shoes. Patient does have rheumatoid arthritis she takes methotrexate on Tuesday she has not had a flare-up and while her foot is feeling much better.. Allergies: Not on File Past Medical History: History reviewed. No pertinent past medical history. Medications: No current outpatient medications on file. ROS: General: denies fever, chills, fatigue, malaise Unremarkable OBJECTIVE LE EXAM: DERM: Positive hair growth to b/l feet with good skin turgor noted. Negative openings in skin VASC: Palpable pedal pulsed b/l with warm to cool tibia to toes b/l NEURO: Gross sensation intact digits 1-10 and b/l feet ORTHO: +5/5 DF/PF/IN/EV right, +5/5 DF/PF/IN/EV left. 20 degrees inversion and 10 degrees eversion STJ b/l. Ankle ROM less than 10 degrees b/l. Very mild pain with direct palpation of the 3rd webspace right foot her 2nd and 3rd digits are severely contracted the PIPJ rigid she has no pain with direct palpation XRAY: US: MR FOOT RT WO CON Procedure: MR foot RT wo con EXAM: MR foot RT wo con HISTORY: Right Metatarsal Deformity, Arciniega Neuroma COMPARISON: None. TECHNIQUE: MRI images obtained with multiple sequences. MRI of the right foot without contrast. Sequences obtained by standard department protocol. FINDINGS: No ankle joint effusion. No subtalar joint effusion. No significant degeneration at the ankle joint or subtalar joint. Achilles tendon and plantar fascia are intact. Mild degeneration at the second tarsometatarsal joint. Extensor and flexor tendons are intact. Mild to moderate atrophy of the intrinsic/plantar musculature of the foot. Soft tissue mass at the third interspace, measuring approximately 1.3 x 1.6 cm (axial T2 image 6, axial T1 image 6). 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 Nonspecific edema at the third metatarsal head, possibly degenerative or posttraumatic MR/MR foot RT wo con IMPRESSION: 1. Soft tissue mass at the third interspace, measuring approximately 1.3 x 1.6 cm (axial T2 image 6, axial T1 image 6). 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 2. Nonspecific edema at the third metatarsal head, considerations include degenerative or posttraumatic etiologies. 3. Extensor and flexor tendons are intact. ASSESSMENT 1. Metatarsal deformity, right 2. Arciniega neuroma, right 3. 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) ([facility]/HCC) PLAN Discussed in great detail the MRI findings patient is progressing well since her last injection she does not want to have any surgery at this time. Did briefly discuss neuroma resection. She will follow up as needed she is to continue with good structured shoes. Karolina Boothe DPM FACFAS documented in this encounter [facility] Evaluation + Plan note Note Date & Type Note Facility Evaluation + Plan note No data available for this section [facility] Evaluation note Note Date & Type Note Facility Evaluation note Diagnosis Arciniega neuroma, right- Primary Metatarsal deformity, right 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) (CMS/HCC) documented in this encounter [facility] Evaluation note Note Date & Type Note Facility Evaluation note Diagnosis Metatarsal deformity, right- Primary Arciniega neuroma, right Right foot pain Pain in soft tissues of limb documented in this encounter [facility] Hospital Discharge instructions Note Date & Type Note Facility Hospital Discharge instructions No data available for this section [facility] Progress note Note Date & Type Note Facility Progress note No data available for this section [facility] Summary Purpose Family History No Family History Records FoundNo Family History Records Found No data available for this section No Family History Records Found Advance Directives No Advanced Directives Records FoundNo Advanced Directives Records FoundNo Advanced Directives Records Found Additional Source Comments INFORMATION SOURCE (unrecogn ized section and content) DATE CREATED AUTHOR 06/03/2022 [facility] DATE CREATED AUTHOR AUTHOR'S ORGANIZ ATION 06/26/2022 [facility] DATE CREATED AUTHOR AUTHOR'S ORGANIZ ATION 01/29/2024 [facility] dical Specialists EPIC Patient Care team informatio n (unrecognized section and content) [employer]aler [employer] Relationship Specialty Start Date End Date Paul Villatoro MD [facility] [place] [phone] PCP - General Family Medicine 09/13/23 Teresa De MD [facility] [place] [address] Referring Physician Family Medicine 07/05/23 [employer] Relationship Specialty Start Date End Date Paul Villatoro MD [address] [place] [phone] PCP - General Family Medicine 09/13/23 Teresa De MD [address] [place] [id number] Referring Physician Family Medicine 07/05/23 Reason for Visit (unrecogniz ed section and content) Reason Comments Follow-up F/U RT foot MRI Reason Comments Neuroma RT foot neuroma pain FOR RECORDS PERTAINING TO PATIENTS WHO ARE [...] BE BASED ON THE PRIMARY CLINICAL RECORDS. [facility] [employer] [facility]. provides no warranty or guarantee of the accuracy or completeness of information in this document.
[2024-02-10 13:21] LABS: Erythrocyte Sedimentation Rate 44 mm/hr (<=30)
[2024-02-10 14:12] LABS: Alanine Aminotransferase 29 U/L (14-59); Albumin Globulin Ratio 0.8; Albumin Level 3.3 g/dL (3.4-5.0); Alkaline Phosphatase 94 U/L (46-116); Aspartate Amino Transferase 17 U/L (15-37); Bilirubin Direct 0.1 mg/dL (0.0-0.2); Bilirubin Total 0.6 mg/dL (0.2-1.0); Estimated GFR (African America >60 (>=60 mL/min/1.73m^2); Estimated GFR (Non-African Ame >60 (>=60 mL/min/1.73m^2); Globulin 3.9 g/dL; Total Protein 7.2 g/dL (6.4-8.2)
== END 2024-02-10 12:54 | disposition home or self-care (01) ==
LOC: LAB 12:54
PROVIDERS: PCP Nurse Practitioner Family; Visit Provider Internal Medicine Rheumatology
DX: M05.79 Rheumatoid arthritis with rheumatoid factor of multiple sites without organ or systems involvement (principal); Z79.899 Other long term (current) drug therapy
CPT/HCPCS: 36415; 80076; 82565; 85025; 85652

== ENCOUNTER 2024-02-29 14:59 | Outpatient (OUT) | payer BC, SELFPAY ==
--- NOTE | 2024-02-29 | ECG_ITS ---
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
== END 2024-02-29 15:00 | disposition home or self-care (01) ==
LOC: CARD 14:59
PROVIDERS: PCP Nurse Practitioner Family; Visit Provider Podiatrist Foot & Ankle Surgery
DX: Z01.810 Encounter for preprocedural cardiovascular examination (principal)
CPT/HCPCS: 93005

== ENCOUNTER 2024-03-10 11:58 | Outpatient (OUT) | payer BC, SELFPAY ==
--- OUTSIDE RECORDS SUMMARY | 2024-03-10 12:02 | XMS_ITS | CCD ---
Author Organization [facility] Care Team Providers Care Boiler Inspector Name Role Phone TERESA DE Attending Unavailable [...] Care Provider DOLCE, KAROLINA R Attending Unavailable ZORA BOOTHEEEM R Referring Unavailable DOLRIZWAN KAROLINA R Attending Unavailable DOLZORA ASTORGAEEM R Attending Unavailable ZORA BOOTHEEEM R Attending Unavailable DOLZORA ASTORGAEEM R Attending Unavailable DOLZORA ASTORGAEEM R Attending Unavailable DOLZORA ASTORGAEEM R Attending Unavailable Problems Active Problems Problem Classification Problem Date Documented Da te Episodic/Chronic Conditions associated with dizziness or vertigo (4 sources) Dizziness and giddiness; Translations: [DIZZINESS AND GIDDINESS] Onset: 06-02-2022 Episodic Other acquired deformities (5 sources) Deformity of metatarsal; Translations: [Unspecified acquired [...] Onset: 07-30-2021 Chronic Other nervous system disorders (5 sources) Mortons neuroma of right foot; Translations: [...] 06-22-2022 Antinuclear Abs, IFA Negative Normal . [facility] Comment on above: Result Comment: Nega tive <1:80 Borderline 1:80 Positive >1:80 ICAP nomenclature: AC-0 For more information about Hep-2 cell patterns use ANApatterns.org, the official website for the International Consensus on Antinuclear Antibody (GERONIMO) Patterns (ICAP). Performed at: [address] [id number] Shore Worker: Charlie Arevalo PhD, Phone: [phone] Performed By: #### A DNA, C4, GERONIMO, CH50, C3, LOZOYA #### [facility] , Anti-Lozoya Antibodieson Anti-Lozoya Antibodies <0.2 Normal 0.0-0.9 [facility] Comment on above: Performed By: #### A DNA, C4, GERONIMO, CH50, C3, LOZOYA #### [facility] , Anti-dsDNA(DBL)Abon 06-23-19 23 Anti-dsDNA(DBL)Ab 1 Normal 0-9 [facility] Comment on above: Result Comment: Nega tive <5 Equivocal 5 - 9 Positive >9 Performed at: [facility] [address] [id number] Shore Worker: Charlie Arevalo PhD, Phone: [phone] PERFORMED BY: [place] [address] [address] [place] [address] PATHOLOGIST TITLE OFFICER EULALIA OLSEN M.D. Performed By: #### A DNA, C4, GERONIMO, CH50, C3, LOZOYA #### [facility] , C-Reactive Proteinon 023 C-Reactive Protein 1.1 mg/dL High 0.0-0.5 [facility] Comment on above: Result Comment: PERF ORMED BY: [address] [place] [address] PATHOLOGIST TITLE OFFICER EULALIA OLSEN M.D. Performed By: #### A DNA, C4, GERONIMO, CH50, C3, LOZOYA #### [facility] , Complement C3on 06-22-2022 Complement C3 147 mg/dL Normal 82-167 [facility] Comment on above: Result Comment: Perf ormed at: [facility] [address] [id number] Shore Worker: Charlie Arevalo PhD, Phone: [phone] Performed By: #### A DNA, C4, GERONIMO, CH50, C3, LOZOYA #### [facility] , Complement C4on 06-22-2022 Complement C4 33 mg/dL Normal 12-38 [facility] Comment on above: Performed By: #### A DNA, C4, GERONIMO, CH50, C3, LOZOYA #### [facility] , Complement Total (CH50)on Complement Total (CH50) 55 Normal >41 [facility] Comment on above: Result Comment: Age Male [...] determine out of range values. Performed at: [facility] [address] [id number] Shore Worker: Charlie Arevalo PhD, Phone: [phone] PERFORMED BY: [facility] [address] [place] [address] PATHOLOGIST TITLE OFFICER EULALIA OLSEN M.D. Performed By: #### A DNA, C4, GERONIMO, CH50, C3, LOZOYA #### [facility] , Complete Blood Count Auto Di ffon 06-22-2022 Basophils (Bld) [#/Vol] 0.1 10*3/uL Normal 0.0-0.2 [facility] Comment on above: Performed By: #### H BCAB, HBSAG, HCV RX PCR, HBSAB #### [facility] , #### ADDONUAPLUS, ESR, CBC, CMP, CRP #### [address] Basophils/100 WBC (Bld) 0.7 % Normal . [facility] Comment on above: Performed By: #### H BCAB, HBSAG, HCV RX PCR, HBSAB #### [facility] , #### ADDONUAPLUS, ESR, CBC, CMP, CRP #### [address] Eosinophils (Bld) [#/Vol] 0.3 10*3/uL Normal 0.0-0.45 [facility] Comment on above: Performed By: #### H BCAB, HBSAG, HCV RX PCR, HBSAB #### [facility] , #### ADDONUAPLUS, ESR, CBC, CMP, CRP #### [address] Eosinophils/100 WBC (Bld) 3.8 % Normal . [facility] Comment on above: Performed By: #### H BCAB, HBSAG, HCV RX PCR, HBSAB #### [facility] , #### ADDONUAPLUS, ESR, CBC, CMP, CRP #### [address] Erythrocyte distribution width (RBC) [Ratio] 13.7 % Normal 11.9-15.3 [facility] Comment on above: Performed By: #### H BCAB, HBSAG, HCV RX PCR, HBSAB #### [facility] , #### ADDONUAPLUS, ESR, CBC, CMP, CRP #### [address] Hematocrit (Bld) [Volume fraction] 39.4 % Normal 34.0-46.4 [facility] Comment on above: Performed By: #### H BCAB, HBSAG, HCV RX PCR, HBSAB #### [facility] , #### ADDONUAPLUS, ESR, CBC, CMP, CRP #### [address] Hemoglobin (Bld) [Mass/Vol] 13.0 g/dL Normal 11.8-15.4 [facility] Comment on above: Performed By: #### H BCAB, HBSAG, HCV RX PCR, HBSAB #### [facility] , #### ADDONUAPLUS, ESR, CBC, CMP, CRP #### [address] Lymphocytes (Bld) [#/Vol] 2.5 10*3/uL Normal 1.00-4.8 [facility] Comment on above: Performed By: #### H BCAB, HBSAG, HCV RX PCR, HBSAB #### [facility] , #### ADDONUAPLUS, ESR, CBC, CMP, CRP #### [address] Lymphocytes/100 WBC (Bld) 35.4 % Normal . [facility] Comment on above: Performed By: #### H BCAB, HBSAG, HCV RX PCR, HBSAB #### [facility] , #### ADDONUAPLUS, ESR, CBC, CMP, CRP #### [address] MCH (RBC) [Entitic mass] 31.3 pg Normal 24.7-34.3 [facility] Comment on above: Performed By: #### H BCAB, HBSAG, HCV RX PCR, HBSAB #### [facility] , #### ADDONUAPLUS, ESR, CBC, CMP, CRP #### [address] MCV (RBC) [Entitic vol] 94.7 fL Normal 80-100 [facility] Comment on above: Performed By: #### H BCAB, HBSAG, HCV RX PCR, HBSAB #### [facility] , #### ADDONUAPLUS, ESR, CBC, CMP, CRP #### [address] Mean Corpuscular HGB Conc 33.1 g/dL Normal 32.0-35.0 [facility] Comment on above: Performed By: #### H BCAB, HBSAG, HCV RX PCR, HBSAB #### [facility] , #### ADDONUAPLUS, ESR, CBC, CMP, CRP #### [address] Monocytes (Bld) [#/Vol] 0.3 10*3/uL Normal 0.0-0.8 [facility] Comment on above: Performed By: #### H BCAB, HBSAG, HCV RX PCR, HBSAB #### [facility] , #### ADDONUAPLUS, ESR, CBC, CMP, CRP #### [address] Monocytes/100 WBC (Bld) 4.7 % Normal . [facility] Comment on above: Performed By: #### H BCAB, HBSAG, HCV RX PCR, HBSAB #### [facility] , #### ADDONUAPLUS, ESR, CBC, CMP, CRP #### [address] Neutrophils (Bld) [#/Vol] 3.9 10*3/uL Normal 1.8-7.7 [facility] Comment on above: Performed By: #### H BCAB, HBSAG, HCV RX PCR, HBSAB #### [facility] , #### ADDONUAPLUS, ESR, CBC, CMP, CRP #### [address] Neutrophils/100 WBC (Bld) 55.4 % Normal . [facility] Comment on above: Performed By: #### H BCAB, HBSAG, HCV RX PCR, HBSAB #### [facility] , #### ADDONUAPLUS, ESR, CBC, CMP, CRP #### [address] NRBC% 0.0 /100{WBC} Normal 0-0.5 [facility] Comment on above: Performed By: #### H BCAB, HBSAG, HCV RX PCR, HBSAB #### [facility] , #### ADDONUAPLUS, ESR, CBC, CMP, CRP #### [address] Platelet mean volume (Bld) [Entitic vol] 7.5 fL Normal 6.3-10.7 [facility] Comment on above: Performed By: #### H BCAB, HBSAG, HCV RX PCR, HBSAB #### [facility] , #### ADDONUAPLUS, ESR, CBC, CMP, CRP #### [address] Platelets (Bld) [#/Vol] 299 10*3/uL Normal 150-450 [facility] Comment on above: Performed By: #### H BCAB, HBSAG, HCV RX PCR, HBSAB #### [facility] , #### ADDONUAPLUS, ESR, CBC, CMP, CRP #### [address] RBC (Bld) [#/Vol] 4.17 10*6/uL Normal 3.60-5.00 [facility] Comment on above: Performed By: #### H BCAB, HBSAG, HCV RX PCR, HBSAB #### [facility] , #### ADDONUAPLUS, ESR, CBC, CMP, CRP #### [facility] [address] WBC (Bld) [#/Vol] 7.1 10*3/uL Normal 3.8-11.6 [facility] Comment on above: Performed By: #### H BCAB, HBSAG, HCV RX PCR, HBSAB #### [facility] , #### ADDONUAPLUS, ESR, CBC, CMP, CRP #### [facility] [address] Comprehensive Metabolic Pane darshan 06-22-2022 Albumin [Mass/Vol] 4.4 g/dL Normal 3.5-5.7 [facility] Comment on above: Performed By: #### A DNA, C4, GERONIMO, CH50, C3, LOZOYA #### [facility] , Albumin/Globulin [Mass ratio] 1.6 {ratio} Normal [facility] Comment on above: Performed By: #### A DNA, C4, GERONIMO, CH50, C3, LOZOYA #### [facility] , ALP [Catalytic activity/Vol] 78 U/L Normal 34-104 [facility] Comment on above: Performed By: #### A DNA, C4, GERONIMO, CH50, C3, LOZOYA #### [facility] , ALT [Catalytic activity/Vol] 21 U/L Normal 7-52 [facility] Comment on above: Performed By: #### A DNA, C4, GERONIMO, CH50, C3, LOZOYA #### [facility] , Anion gap [Moles/Vol] 12.9 mmol/L Normal 6.0-15.0 [facility] Comment on above: Performed By: #### A DNA, C4, GERONIMO, CH50, C3, LOZOYA #### [facility] , AST [Catalytic activity/Vol] 24 U/L Normal 13-39 [facility] Comment on above: Performed By: #### A DNA, C4, GERONIMO, CH50, C3, LOZOYA #### [facility] , Bilirubin [Mass/Vol] 0.9 mg/dL Normal 0.3-1.0 [facility] Comment on above: Performed By: #### A DNA, C4, GERONIMO, CH50, C3, LOZOYA #### [facility] , Calcium [Mass/Vol] 9.0 mg/dL Normal 8.6-10.3 [facility] Comment on above: Performed By: #### A DNA, C4, GERONIMO, CH50, C3, LOZOYA #### [facility] , Chloride [Moles/Vol] 106 mmol/L Normal 98-107 [facility] Comment on above: Performed By: #### A DNA, C4, GERONIMO, CH50, C3, LOZOYA #### [facility] , CO2 [Moles/Vol] 25.2 mmol/L Normal 21.0-31.0 [facility] Comment on above: Performed By: #### A DNA, C4, GERONIMO, CH50, C3, LOZOYA #### [facility] , Creatinine [Mass/Vol] 0.79 mg/dL Normal 0.60-1.20 [facility] Comment on above: Performed By: #### A DNA, C4, GERONIMO, CH50, C3, LOZOYA #### [facility] , GFR/1.73 sq M.predicted MDRD (S/P/Bld) [Vol rate/Area] mL/min/{1.73_m2} [facility] Comment on above: Performed By: #### A DNA, C4, GERONIMO, CH50, C3, LOZOYA #### [facility] , Globulin (S) [Mass/Vol] 2.8 g/dL [facility] Comment on above: Performed By: #### A DNA, C4, GERONIMO, CH50, C3, LOZOYA #### [facility] , Glucose [Mass/Vol] 97 mg/dL Normal 70-100 [facility] Comment on above: Result Comment: [place] om Glucose Reference Range is dependent on time and content of last meal. Glucose of more than 200 mg/dL in a nonstressed, ambulatory subject supports the diagnosis of Diabetes Mellitus. ADA recommended reference range Performed By: #### A DNA, C4, GERONIMO, CH50, C3, LOZOYA #### [facility] , Potassium [Moles/Vol] 4.1 mmol/L Normal 3.5-5.1 [facility] Comment on above: Performed By: #### A DNA, C4, GERONIMO, CH50, C3, LOZOYA #### [facility] , Protein [Mass/Vol] 7.2 g/dL Normal 6.4-8.9 [facility] Comment on above: Performed By: #### A DNA, C4, GERONIMO, CH50, C3, LOZOYA #### [facility] , Sodium [Moles/Vol] 140 mmol/L Normal 136-145 [facility] Comment on above: Performed By: #### A DNA, C4, GERONIMO, CH50, C3, LOZOYA #### [facility] , Urea nitrogen [Mass/Vol] 12 mg/dL Normal 7-25 [facility] Comment on above: Performed By: #### A DNA, C4, GERONIMO, CH50, C3, LOZOYA #### [facility] , Dipstick and Microscopicon 0 06-22-2022 Appearance (U) Clear Normal Clear [facility] Comment on above: Order Comment: Name Collection Type:: Clean-Voided Midstream Performed By: #### H BCAB, HBSAG, HCV RX PCR, HBSAB #### [facility] , #### ADDONUAPLUS, ESR, CBC, CMP, CRP #### [facility] [address] [place] [address] [place] Bacteria,Urine 1+ High None Seen [facility] Comment on above: Order Comment: Name Collection Type:: Clean-Voided Midstream Performed By: #### H BCAB, HBSAG, HCV RX PCR, HBSAB #### [facility] , #### ADDONUAPLUS, ESR, CBC, CMP, CRP #### [facility] [address] [place] [address] Bilirubin,Urine Negative Normal Negative [facility] Comment on above: Order Comment: Name Collection Type:: Clean-Voided Midstream Performed By: #### H BCAB, HBSAG, HCV RX PCR, HBSAB #### [facility] , #### ADDONUAPLUS, ESR, CBC, CMP, CRP #### [facility] [address] [place] [address] Color (U) Yellow Normal Yellow [facility] Comment on above: Order Comment: Name Collection Type:: Clean-Voided Midstream Performed By: #### H BCAB, HBSAG, HCV RX PCR, HBSAB #### [facility] , #### ADDONUAPLUS, ESR, CBC, CMP, CRP #### [facility] [address] [place] [address] Glucose Ql (U) Normal Normal Normal [facility] Comment on above: Order Comment: Name Collection Type:: Clean-Voided Midstream Performed By: #### H BCAB, HBSAG, HCV RX PCR, HBSAB #### [facility] , #### ADDONUAPLUS, ESR, CBC, CMP, CRP #### [facility] [address] [place] [address] Hyaline Casts,Urine 0-8 Normal 0-8 [facility] Comment on above: Order Comment: Name Collection Type:: Clean-Voided Midstream Result Comment: PERF ORMED BY: [place] [address] PATHOLOGIST TITLE OFFICER EULALIA OLSEN M.D. Performed By: #### H BCAB, HBSAG, HCV RX PCR, HBSAB #### [facility] , #### ADDONUAPLUS, ESR, CBC, CMP, CRP #### [facility] [address] [place] [address] Ketones Ql (U) Negative Normal Negative [facility] Comment on above: Order Comment: Name Collection Type:: Clean-Voided Midstream Performed By: #### H BCAB, HBSAG, HCV RX PCR, HBSAB #### [facility] , #### ADDONUAPLUS, ESR, CBC, CMP, CRP #### [facility] [address] [place] [address] Leukocyte esterase Test strip Ql (U) Negative Normal Negative [facility] Comment on above: Order Comment: Name Collection Type:: Clean-Voided Midstream Performed By: #### H BCAB, HBSAG, HCV RX PCR, HBSAB #### [facility] , #### ADDONUAPLUS, ESR, CBC, CMP, CRP #### [facility] [address] [place] [address] Nitrite,Urine Negative Normal Negative [facility] Comment on above: Order Comment: Name Collection Type:: Clean-Voided Midstream Performed By: #### H BCAB, HBSAG, HCV RX PCR, HBSAB #### [facility] , #### ADDONUAPLUS, ESR, CBC, CMP, CRP #### [facility] [address] [place] [address] Occult Blood,Urine Negative Normal Negative [facility] Comment on above: Order Comment: Name Collection Type:: Clean-Voided Midstream Performed By: #### H BCAB, HBSAG, HCV RX PCR, HBSAB #### [facility] , #### ADDONUAPLUS, ESR, CBC, CMP, CRP #### [facility] [address] [place] [address] pH (U) 5.5 [pH] Normal 5.0-9.0 [facility] Comment on above: Order Comment: Name Collection Type:: Clean-Voided Midstream Performed By: #### H BCAB, HBSAG, HCV RX PCR, HBSAB #### [facility] , #### ADDONUAPLUS, ESR, CBC, CMP, CRP #### [address] Protein,Urine Negative Normal Negative [facility] Comment on above: Order Comment: Name Collection Type:: Clean-Voided Midstream Performed By: #### H BCAB, HBSAG, HCV RX PCR, HBSAB #### [facility] , #### ADDONUAPLUS, ESR, CBC, CMP, CRP #### [facility] [address] RBC,Urine 3-4 Normal 0-4 [facility] Comment on above: Order Comment: Name Collection Type:: Clean-Voided Midstream Performed By: #### H BCAB, HBSAG, HCV RX PCR, HBSAB #### [facility] , #### ADDONUAPLUS, ESR, CBC, CMP, CRP #### [facility] [address] [place] [address] Specificy [place],Urine 1.021 Normal 1.001-1.030 [facility] Comment on above: Order Comment: Name Collection Type:: Clean-Voided Midstream Performed By: #### H BCAB, HBSAG, HCV RX PCR, HBSAB #### [facility] , #### ADDONUAPLUS, ESR, CBC, CMP, CRP #### [facility] [address] [place] [address] Squamous Epithelial Cell,Urine 5-9 High 0-2 [facility] Comment on above: Order Comment: Name Collection Type:: Clean-Voided Midstream Performed By: #### H BCAB, HBSAG, HCV RX PCR, HBSAB #### [facility] , #### ADDONUAPLUS, ESR, CBC, CMP, CRP #### [facility] [address] [place] [address] Urobilinogen,Urine Normal Normal Normal [facility] Comment on above: Order Comment: Name Collection Type:: Clean-Voided Midstream Performed By: #### H BCAB, HBSAG, HCV RX PCR, HBSAB #### [facility] , #### ADDONUAPLUS, ESR, CBC, CMP, CRP #### [facility] [address] WBC,Urine 5-9 High 0-4 [facility] Comment on above: Order Comment: Name Collection Type:: Clean-Voided Midstream Performed By: #### H BCAB, HBSAG, HCV RX PCR, HBSAB #### [facility] , #### ADDONUAPLUS, ESR, CBC, CMP, CRP #### [facility] [address] [place] [address] Erythrocyte Sedimentation Ra raymond 06-22-2022 ESR (Bld) [Velocity] 36 mm/h High 0-29 [facility] Comment on above: Result Comment: PERF ORMED BY: [place] [address] PATHOLOGIST TITLE OFFICER EULALIA OLSEN M.D. Performed By: #### A DNA, C4, GERONIMO, CH50, C3, LOZOYA #### [facility] , Hep C Ab wRfx to Qnt PCRon 0 06-22-2022 Hepatitis C Virus Antibody Non-Reactive Normal Non Reactive [facility] Comment on above: Performed By: #### A DNA, C4, GERONIMO, CH50, C3, LOZOYA #### [facility] , Interpretation Hepatitis C Normal . [facility] Comment on above: Result Comment: Not infected with HCV unless early or acute infection is suspected (which may be delayed in an immunocompromised individual), or other evidence exists to indicate HCV infection. Performed By: #### A DNA, C4, GERONIMO, CH50, C3, LOZOYA #### [facility] , Hepatitis B Core Antibodyon 06-22-2022 Hepatitis B Core Antibody Negative Normal Negative [facility] Comment on above: Result Comment: Perf ormed at: [facility] [address] [id number] [place] Worker: Charlie Arevalo PhD, Phone: [phone] Performed By: #### A DNA, C4, GERONIMO, CH50, C3, LOZOYA #### [facility] , Hepatitis B Surface Antibody on 06-22-2022 Hepatitis B Surface Antibody Non-Reactive Normal . [facility] Comment on above: Result Comment: Non Reactive: Inconsistent with immunity, less than 10 mIU/mL Reactive: Consistent with immunity, greater than 9.9 mIU/mL Performed By: #### A DNA, C4, GERONIMO, CH50, C3, LOZOYA #### [facility] , Hepatitis B Surface Antigeno n 06-22-2022 HBsAg Screen Negative Normal Negative [facility] Comment on above: Result Comment: PERF ORMED BY: [place] [address] PATHOLOGIST TITLE OFFICER EULALIA OLSEN M.D. Performed By: #### A DNA, C4, GERONIMO, CH50, C3, LOZOYA #### [facility] , XR chest 2V*on 06-22-2022 XR chest 2V* [facility] [place] [address] XRay Report Signed Patient: Cielo Ray MR#: [id number] 66 : 1965 Acct:[id number] Age/Sex: 56 / F ADM Date: 06/22/22 Loc: ICXD Room: Type: [facility] Attending Dr: Esdras Bonilla MD Copies [...] Vitale Jr., D.OHong06/22/2022 4:08 PM Dictation Location: [place] [address] Transcribed By: [facility] 06/22/22 1608 Dictated By: Cr Vitale Jr, DO 06/22/22 1608 Signed By: 06/22/22 1608 Normal [facility] XR hand BI 2Von 06-22-2022 XR hand BI 2V [facility] [place] [address] [place], [place] [id number] XRay Report Signed Patient: Cielo Ray MR#: [id number] 66 : 1965 Acct:[id number] Age/Sex: 56 / F ADM Date: 06/22/22 Loc: ICXD Room: Type: [facility] Attending Dr: Esdras Bonilla MD Copies [...] PROCESS. Impression dictated by: Cr Vitale Jr., DHongOHong06/22/2022 4:12 PM Dictation Location: [place] [address] Transcribed By: [facility] 06/22/22 161 Dictated By: Cr Vitale Jr, DO 06/22/22 1608 Signed By: 06/22/22 1612 [facility] VC CONSULT FOLLOWUPon 2021 VC CONSULT FOLLOWUP Patient: JEAN PIERRE RAY Exam Date: 02/02/2022 : 1965 Gender:F Ordering : DR KEILA DE LA FUENTE M.D. Admission #: [id number] Family : Order #: [id number] CLICK HERE TO VIEW EXAM RADIOLOGY REPORT [...] Perla M.D. on 02/02/2022 at 15:55 Normal [facility] VC EXT VENOUS LT LIMITEDon 1 04-05-2021 VC EXT VENOUS LT LIMITED Patient: CIELO RAY Exam Date: 02/02/2022 : 1965 Gender:F Ordering : DR KEILA DE LA FUENTE M.D. Admission #: [id number] Family : Order #: [id number] CLICK HERE TO VIEW EXAM RADIOLOGY REPORT [...] Perla M.D. on 02/02/2022 at 15:51 Normal [facility] VC ENDOVENOUS ABL 1ST V LTon 01-26-2022 VC ENDOVENOUS ABL 1ST V LT Patient: CIELO RAY Exam Date: 01/26/2022 : 1965 Gender:F Ordering : DR KEILA DE LA FUENTE M.D. Admission #: [id number] Family : Order #: [id number] CLICK HERE TO VIEW EXAM RADIOLOGY REPORT [...] Fuente MD on 01/26/2022 at 16:08 Normal [facility] ALBUMINon 01-14-2022 Albumin [Mass/Vol] 3.6 g/dL Normal 3.4-5.0 [facility] Comment on above: Performed By: #### C JENELLE, ALB, ALT, CRP ####[facility] [address] [place] [address]Dr. Wilbert Gomez CBC AUTO DIFFon 01-14-2022 BASO # 0.0 103/ul Normal 0.0-0.1 [facility] Comment on above: Performed By: #### C BC #### [facility] [address] [place] [address] [address] Wilbert Gomez Basophils/100 WBC (Bld) 0.5 % Normal 0.2-2.0 [facility] Comment on above: Performed By: #### C BC #### [facility] [address] [place] [address] [address] Wilbert Gomez EO # 0.3 103/ul Normal 0.0-0.7 [facility] Comment on above: Performed By: #### C BC #### [facility] [address] [place] [address] [address] Wilbert Gomez Eosinophils/100 WBC (Bld) 4.2 % Normal 0.9-7.0 [facility] Comment on above: Performed By: #### C BC #### [facility] [address] [place] [address] Dr. Wilbert Goemz Erythrocyte distribution width (RBC) [Ratio] 13.6 % Normal 11.0-15.0 [facility] Comment on above: Performed By: #### C BC #### [facility] [address] [place] [address] Dr. Wilbert Gomez Hematocrit (Bld) [Volume fraction] 36.8 % Normal 36.0-48.0 [facility] Comment on above: Performed By: #### C BC #### [facility] [address] [place] [address] Dr. Wilbert Gomez Hemoglobin (Bld) [Mass/Vol] 12.1 g/dL Normal 12.0-16.0 [facility] Comment on above: Performed By: #### C BC #### [facility] [address] [place] [address] Dr. Wilbert Gomez IG # 0.02 10e3/ul Normal 0.00-0.03 [facility] Comment on above: Performed By: #### C BC #### [facility] [address] [place] [address] Dr. Wilbert Gomez IG % 0.3 % Normal 0.0-0.5 [facility] Comment on above: Performed By: #### C BC #### [facility] [address] [place] [address] Dr. Wilbert Gomez LYMPH # 2.6 103/ul Normal 1.2-3.8 [facility] Comment on above: Performed By: #### C BC #### [facility] [address] [place] [address] Dr. Wilbert Gomez Lymphocytes/100 WBC (Bld) 35.7 % Normal 20.5-60.0 [facility] Comment on above: Performed By: #### C BC #### [facility] [address] [place] [address] Dr. Wilbert Gomez MANUAL DIFF REQ NO Normal [facility] Comment on above: Performed By: #### C BC #### [facility] [address] [place] [address] Dr. Wilbert Gomez MCH (RBC) [Entitic mass] 31.7 pg Normal 26.7-34.0 [facility] Comment on above: Performed By: #### C BC #### [facility] [address] [place] [address] Dr. Wilbert Gomez MCHC (RBC) [Mass/Vol] 32.9 g/dL Normal 29.9-35.2 [facility] Comment on above: Performed By: #### C BC #### [facility] [address] [place] [address] Dr. Wilbert Gomez MCV (RBC) [Entitic vol] 96.3 fL Normal 81.0-99.0 [facility] Comment on above: Performed By: #### C BC #### [facility] [address] [place] [address] Dr. Wilbert Gomez MONO # 0.5 103/ul Normal 0.3-0.8 [facility] Comment on above: Performed By: #### C BC #### [facility] [address] [place] [address] Dr. Wilbert Gomez Monocytes/100 WBC (Bld) 6.2 % Normal 1.7-12.0 [facility] Comment on above: Performed By: #### C BC #### [facility] [address] [place] [address] Dr. Wilbert Gomez NEUT # 3.9 103/ul Normal 1.4-6.5 [facility] Comment on above: Performed By: #### C BC #### [facility] [address] [place] [address] Dr. Wilbert Gomez Neutrophils/100 WBC (Bld) 53.1 % Normal 43.0-75.0 [facility] Comment on above: Performed By: #### C BC #### [facility] [address] [place] [address] Dr. Wilbert Gomez Platelet mean volume (Bld) [Entitic vol] 8.9 fL Critically low 9.5-13.5 [facility] Comment on above: Performed By: #### C BC #### [facility] [address] [place] [address] Dr. Wilbert Gomez PLT 275 103/ul Normal 150-450 [facility] Comment on above: Performed By: #### C BC #### [facility] [address] [address] [address] Wilbert Gomez RBC 3.82 106/ul Critically low 4.20-5.40 [facility] Comment on above: Performed By: #### C BC #### [facility] [address] [address] [address] Wilbert Gomez WBC 7.3 103/ul Normal 4.0-11.0 [facility] Comment on above: Performed By: #### C BC #### [facility] [address] [address] [address] Wilbert Gomez CREATININEon 01-14-2022 Creatinine [Mass/Vol] 0.79 mg/dL Normal 0.55-1.02 [facility] Comment on above: Performed By: #### C JENELLE, ALB, ALT, CRP ####[facility] [address] [address]Dr. Wilbert Gomez EGFR-AF GAMBIAN >60 Normal >=60 [facility] Comment on above: Performed By: #### C JENELLE, ALB, ALT, CRP ####[facility] [address] [address]DrHong Gomez EGFR-NON AF GAMBIAN >60 Normal >=60 [facility] Comment on above: Performed By: #### C JENELLE, ALB, ALT, CRP ####[facility] [address] [address]DrHong Gomez CRPon 01-14-2022 CRP 1.1 mg/dL Critically high <=1.0 [facility] Comment on above: Performed By: #### C JENELLE, ALB, ALT, CRP ####[facility] [address] [address]DrHong Gomez SED RATE WESTERGRENon 2021 SED RATE 37 mm/hr Critically high <=30 [facility] Comment on above: Performed By: #### C BC #### [facility] [address] [place], [place] [address] Dr. Wilbert Gomez [facility] 01-14-2022 ALT [Catalytic activity/Vol] 30 U/L Normal 14-59 [facility] Comment on above: Performed By: #### C JENELLE, ALB, ALT, CRP ####[facility] [address] [place], [place] [address]ZsDr. Wilbert Gomez VC CONSULT FOLLOWUPon 2021 VC CONSULT FOLLOWUP Patient: JEAN PIERRE RAY Exam Date: 12/29/2021 : 1965 Gender:F Ordering : DR KEILA DE LA FUENTE M.D. Admission #: [id number] Family : Order #: [id number] CLICK HERE TO VIEW EXAM RADIOLOGY REPORT [...] MD on 12/29/2021 at 15:41 Normal [facility] VC EXT VENOUS LT LIMITEDon 1 02-28-2021 VC EXT VENOUS LT LIMITED Patient: CIELO RAY Exam Date: 12/29/2021 : 1965 Gender:F Ordering : DR KEILA DE LA FUENTE M.D. Admission #: [id number] Family : Order #: [id number] CLICK HERE TO VIEW EXAM RADIOLOGY REPORT [...] Fuente MD on 12/29/2021 at 15:34 Normal [facility] VC ENDOVENOUS ABL 1ST V LTon 12-22-2021 VC ENDOVENOUS ABL 1ST V LT Patient: CIELO RAY Exam Date: 12/22/2021 : 1965 Gender:F Ordering : DR KEILA DE LA FUENTE M.D. Admission #: [id number] Family : Order #: [id number] CLICK HERE TO VIEW EXAM RADIOLOGY REPORT [...] La Fuente MD on 12/22/2021 at 16:10 [facility] CONSULTATIONon 11-30 VC COMP CONSULTATION Patient: KARINA RAY Exam Date: 11/30/2021 : 1965 Gender:F Ordering : DR KEILA DE LA FUENTE M.D. Admission #: [id number] Family : Order #: [id number] CLICK HERE TO VIEW EXAM RADIOLOGY REPORT [...] great saphenous and small saphenous veins. 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 PHYSICAL [...] left small saphenous veins, left and right refrigerator crater veins. 4. Microfoam chemical ablation of dilated, incompetent branch saphenous varicosities within right and left lower extremities Nurse notes, history and physical were reviewed and confirmed, see attached forms. The nurse was present throughout the physical exam and consultation Dictated by: Hayden Perla M.D. on 12/01/2021 at 08:06 Approved by: Hayden Perla M.D. on 12/01/2021 at 09:12 Normal [facility] VC VENOUS REFLUX MICHELLE LMTon 1 VC VENOUS REFLUX MICHELLE LMT Patient: CIELO RAY Exam Date: 11/30/2021 : 1965 Gender:F Ordering : DR KEILA DE LA FUENTE M.D. Admission #: [id number] Family : Order #: [id number] CLICK HERE TO VIEW EXAM RADIOLOGY REPORT [...] treated GSV. Incomptent varicose vein associated with refrigerator crater distal thigh measures 6.2 mm with 2.6s [...] thrombus. Compressibility: Normal. Flow: Deep venous reflux. Inspector And Tester: Two medial/distal lower leg perfs measures [...] and small saphenous veins. 2. 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 3. Consultation for endovenous ablation is recommended. Dictated by: Hayden Perla M.D. on 11/30/2021 at 15:51 Approved by: Hayden Perla M.D. on 11/30/2021 at 15:53 Normal [facility] INSULINon 10-09-2021 Insulin 11.9 uIU/mL Normal 2.6-24.9 [facility] Comment on above: Performed By: #### I NSULIN ####[facility] [address] [address]Dr. Wilbert Gomez T4, T3U, FTI LABCORPon 10-09 Free Thyroxine Index 2.1 Normal 1.2-4.9 [facility] Comment on above: Performed By: #### T HYLC ####[facility] [address] [address]Dr. Wilbert Gomez T3 Uptake 29 % Normal 24-39 [facility] Comment on above: Performed By: #### T HYLC ####[facility] [address] [address]Dr. Wilbert Gomez T4 [Mass/Vol] 7.4 ug/dL Normal 4.5-12.0 [facility] Comment on above: Performed By: #### T HYLC ####[facility] [address] [place], [place] [address]Dr. Wilbert Jason GLYCOHEMOGLOBIN A1Con 2021 ADA RECOMMENDATION SEE BELOW Normal [facility] Comment on above: Result Comment: ADA RECOMMENDED LIMIT 4.0 - 6.0 ADA THERAPEUTIC TARGET < 7.0 ACTION SUGGESTED > 7.0 Performed By: #### A 1C ####[facility] [address] [address]Dr. Wilbert Gomez Glucose [Mass/Vol] 111 mg/dL Normal [facility] Comment on above: Performed By: #### A 1C ####[facility] [address] [place], [place] [address]Dr. Wilbert Gomez HbA1c (Bld) [Mass fraction] 5.5 % Normal 4.5-6.2 [facility] Comment on above: Performed By: #### A 1C ####[facility] [address] [id number] Gomez IRONon 10-08-2021 Iron [Mass/Vol] 67.0 ug/dL Normal 50.0-170.0 [facility] Comment on above: Performed By: #### I SOLA #### [facility] [address] [place], [place] [address] Dr. Wilbert Gomez LIPID PROFILEon 10-08-2021 CHOL-HDL RATIO NORM SEE BELOW Normal [facility] Comment on above: Result Comment: 3.3 - 4.4 LOW RISK 4.4 - 7.1 AVERAGE RISK 7.1 - 11.0 MODERATE RISK >11.0 HIGH RISK Performed By: #### L IPID, TSH, CMP ####[facility] [address] [address]Dr. Wilbert Gomez Cholesterol [Mass/Vol] 205 mg/dL Critically high <=200 [facility] Comment on above: Performed By: #### L IPID, TSH, CMP ####[facility] [address] [address]Dr. Wilbert Gomez Cholesterol in HDL [Mass/Vol] 81 mg/dL Critically high 40-60 [facility] Comment on above: Performed By: #### L IPID, TSH, CMP ####[facility] [address] [id number]. Wilbert Gomez Cholesterol in LDL [Mass/Vol] 108.0 mg/dL Normal [facility] Comment on above: Performed By: #### L IPID, TSH, CMP ####[facility] [address] [id number]. Wilbert Gomez Cholesterol.total/Ch olesterol in HDL [Mass ratio] 2.5 {ratio} Normal [facility] Comment on above: Performed By: #### L IPID, TSH, CMP ####[facility] [address] [phone]. Wilbert Gomez HDL NORMAL > or = 60 mg/dl - LO W CARDIOVASCULAR RISK <40 mg/dl - HIGH CARDIOVASCULAR RISK Normal [facility] Comment on above: Performed By: #### L IPID, TSH, CMP ####[facility] [address] [id number]. Wilbert Gomez LDL CALC NORMAL SEE BELOW Normal [facility] Comment on above: Result Comment: <100 mg/dl OPTIMAL 100 - 129 mg/dl NEAR OR ABOVE OPTIMAL 130 - 159 mg/dl BORDERLINE HIGH 160 - 189 mg/dl HIGH >190 mg/dl VERY HIGH Performed By: #### L IPID, TSH, CMP ####[facility] [address] [address]Dr. Wilbert Gomez Triglyceride [Mass/Vol] 80 mg/dL Normal <=150 [facility] Comment on above: Performed By: #### L IPID, TSH, CMP ####[facility] [address] [address]Dr. Wilbert Gomez VLDL CALC 16.0 mg/dL Normal [facility] Comment on above: Performed By: #### L IPID, TSH, CMP ####[facility] [address] [address]Dr. Wilbert Gomez PROF 14(COMP METB)on 022 Albumin [Mass/Vol] 3.6 g/dL Normal 3.4-5.0 [facility] Comment on above: Performed By: #### L IPID, TSH, CMP ####[facility] [address] [address]Dr. Wilbert Gomez Albumin/Globulin [Mass ratio] 1.0 {ratio} Normal [facility] Comment on above: Performed By: #### L IPID, TSH, CMP ####[facility] [address] [address]Dr. Wilbert Gomez ALP [Catalytic activity/Vol] 86 U/L Normal 46-116 [facility] Comment on above: Performed By: #### L IPID, TSH, CMP ####[facility] [address] [address]Dr. Wilbert Gomez ALT [Catalytic activity/Vol] 27 U/L Normal 14-59 [facility] Comment on above: Performed By: #### L IPID, TSH, CMP ####[facility] [address] [id number]. Wilbert Gomez Anion gap [Moles/Vol] 12.1 mmol/L Normal [facility] Comment on above: Performed By: #### L IPID, TSH, CMP ####[facility] [address] [address]Dr. Wilbert Gomez AST [Catalytic activity/Vol] 23 U/L Normal 15-37 [facility] Comment on above: Performed By: #### L IPID, TSH, CMP ####[facility] [address] [address]Dr. Wilbert Gomez Bilirubin [Mass/Vol] 0.6 mg/dL Normal 0.2-1.0 [facility] Comment on above: Performed By: #### L IPID, TSH, CMP ####[facility] [address] [address]Dr. Wilbert Gomez Calcium [Mass/Vol] 8.7 mg/dL Normal 8.5-10.1 [facility] Comment on above: Performed By: #### L IPID, TSH, CMP ####[facility] [address] [address]Dr. Wilbert Gomez Chloride [Moles/Vol] 104 mmol/L Normal 98-107 [facility] Comment on above: Performed By: #### L IPID, TSH, CMP ####[facility] [address] [address]Dr. Wilbert Gomez CO2 [Moles/Vol] 26.8 mmol/L Normal 21.0-32.0 [facility] Comment on above: Performed By: #### L IPID, TSH, CMP ####[facility] [address] [address]Dr. Wilbert Gomez Creatinine [Mass/Vol] 0.85 mg/dL Normal 0.55-1.02 [facility] Comment on above: Performed By: #### L IPID, TSH, CMP ####[facility] [address] [address]Dr. Wilbert Jason EGFR-AF GAMBIAN >60 Normal >=60 [facility] Comment on above: Performed By: #### L IPID, TSH, CMP ####[facility] [address] [address]Dr. Wilbert Gomez EGFR-NON AF GAMBIAN >60 Normal >=60 [facility] Comment on above: Performed By: #### L IPID, TSH, CMP ####[facility] [address] [address]Dr. Wilbert Gomez Globulin (S) [Mass/Vol] 3.7 g/dL Normal [facility] Comment on above: Performed By: #### L IPID, TSH, CMP ####[facility] [address] [place], [place] [address]Dr. Wilbert Gomez Glucose [Mass/Vol] 92 mg/dL Normal 74-106 [facility] Comment on above: Performed By: #### L IPID, TSH, CMP ####[facility] [address] [place], [place] [address]Dr. Wilbert Gomez Potassium [Moles/Vol] 3.9 mmol/L Normal 3.5-5.1 [facility] Comment on above: Performed By: #### L IPID, TSH, CMP ####[facility] [address] [place], [place] [address]Dr. Wilbert Gomez Protein [Mass/Vol] 7.3 g/dL Normal 6.4-8.2 [facility] Comment on above: Performed By: #### L IPID, TSH, CMP ####[facility] [address] [place], [place] [address]Dr. Wilbert Gomez Sodium [Moles/Vol] 139 mmol/L Normal 136-145 [facility] Comment on above: Performed By: #### L IPID, TSH, CMP ####[facility] [address] [place], [place] [address]Dr. Wilbert Gomez Urea nitrogen [Mass/Vol] 10.0 mg/dL Normal 7.0-18.0 [facility] Comment on above: Performed By: #### L IPID, TSH, CMP ####[facility] [address] [place], [place] [address]Dr. Wilbert Gomez Urea nitrogen/Creatinine [Mass ratio] 11.8 mg/mg Normal [facility] Comment on above: Performed By: #### L IPID, TSH, CMP ####[facility] [address] [place], [place] [address]LmDr. Wilbert Gomez TSHon 10-08-2021 TSH 0.731 uIU/mL Normal 0.358-3.740 [facility] Comment on above: Performed By: #### L IPID, TSH, CMP ####[facility] [address] [place], [place] [address]GkHong Gomez ALBUMINon 07-30-2021 Albumin [Mass/Vol] 3.8 g/dL Normal 3.4-5.0 [facility] Comment on above: Performed By: #### C JENELLE, ALT, CRP, ALB #### [facility] [address] [place] [address] Dr. Wilbert Gomez CBC AUTO DIFFon 07-30-2021 BASO # 0.0 103/ul Normal 0.0-0.1 [facility] Comment on above: Performed By: #### C BC #### [facility] [address] [place] [address] Dr. Wilbert Gomez Basophils/100 WBC (Bld) 0.6 % Normal 0.2-2.0 [facility] Comment on above: Performed By: #### C BC #### [facility] [address] [place] [address] Dr. Wilbert Gomez EO # 0.2 103/ul Normal 0.0-0.7 [facility] Comment on above: Performed By: #### C BC #### [facility] [address] [place] [address] Dr. Wilbert Gomez Eosinophils/100 WBC (Bld) 4.1 % Normal 0.9-7.0 [facility] Comment on above: Performed By: #### C BC #### [facility] [address] [place] [address] Dr. Wilbert Gomez Erythrocyte distribution width (RBC) [Ratio] 14.0 % Normal 11.0-15.0 [facility] Comment on above: Performed By: #### C BC #### [facility] [address] [place] [address] Dr. Wilbert Gomez Hematocrit (Bld) [Volume fraction] 37.4 % Normal 36.0-48.0 [facility] Comment on above: Performed By: #### C BC #### [facility] [address] [place] [address] Dr. Wilbert Gomez Hemoglobin (Bld) [Mass/Vol] 12.2 g/dL Normal 12.0-16.0 [facility] Comment on above: Performed By: #### C BC #### [facility] [address] [place] [address] Dr. Wilbert Gomez IG # 0.01 10e3/ul Normal 0.00-0.03 [facility] Comment on above: Performed By: #### C BC #### [facility] [address] [place] [address] Dr. Wilbert Gomez IG % 0.2 % Normal 0.0-0.5 [facility] Comment on above: Performed By: #### C BC #### [facility] [address] [place] [address] Dr. Wilbert Gomez LYMPH # 1.6 103/ul Normal 1.2-3.8 [facility] Comment on above: Performed By: #### C BC #### [facility] [address] [place] [address] Dr. Wilbert Gomez Lymphocytes/100 WBC (Bld) 33.4 % Normal 20.5-60.0 [facility] Comment on above: Performed By: #### C BC #### [facility] [address] [place] [address] Dr. Wilbert Gomez MANUAL DIFF REQ NO Normal [facility] Comment on above: Performed By: #### C BC #### [facility] [address] [place] [address] Dr. Wilbert Gomez MCH (RBC) [Entitic mass] 31.9 pg Normal 26.7-34.0 [facility] Comment on above: Performed By: #### C BC #### [facility] [address] [address] [address] Wilbert Gomez MCHC (RBC) [Mass/Vol] 32.6 g/dL Normal 29.9-35.2 [facility] Comment on above: Performed By: #### C BC #### [facility] [address] [place] [address] Dr. Wilbert Gomez MCV (RBC) [Entitic vol] 97.7 fL Normal 81.0-99.0 [facility] Comment on above: Performed By: #### C BC #### [facility] [address] [place] [address] Dr. Wilbert Gomez MONO # 0.5 103/ul Normal 0.3-0.8 [facility] Comment on above: Performed By: #### C BC #### [facility] [address] [place] [address] Dr. Wilbert Gomez Monocytes/100 WBC (Bld) 11.0 % Normal 1.7-12.0 [facility] Comment on above: Performed By: #### C BC #### [facility] [address] [place] [address] Dr. Wilbert Gomez NEUT # 2.4 103/ul Normal 1.4-6.5 [facility] Comment on above: Performed By: #### C BC #### [facility] [address] [place] [address] Dr. Wilbert Gomez Neutrophils/100 WBC (Bld) 50.7 % Normal 43.0-75.0 [facility] Comment on above: Performed By: #### C BC #### [facility] [address] [place] [address] Dr. Wilbert Gomez Platelet mean volume (Bld) [Entitic vol] 8.8 fL Critically low 9.5-13.5 [facility] Comment on above: Performed By: #### C BC #### [facility] [address] [place] [address] Dr. Wilbert Gomez PLT 228 103/ul Normal 150-450 [facility] Comment on above: Performed By: #### C BC #### [facility] [address] [address] [address] Wilbert Gomez RBC 3.83 106/ul Critically low 4.20-5.40 [facility] Comment on above: Performed By: #### C BC #### [facility] [address] [address] [address] Wilbert Gomez WBC 4.8 103/ul Normal 4.0-11.0 [facility] Comment on above: Performed By: #### C BC #### [facility] [address] [place] [address] Dr. Wilbert Gomez CREATININEon 07-30-2021 Creatinine [Mass/Vol] 0.87 mg/dL Normal 0.55-1.02 [facility] Comment on above: Performed By: #### C JENELLE, ALT, CRP, ALB #### [facility] [address] [place] [address] Dr. Wilbert Gomez EGFR-AF GAMBIAN >60 Normal >=60 [facility] Comment on above: Performed By: #### C JENELLE, ALT, CRP, ALB #### [facility] [address] [place] [address] Dr. Wilbert Gomez EGFR-NON AF GAMBIAN >60 Normal >=60 [facility] Comment on above: Performed By: #### C JENELLE, ALT, CRP, ALB #### [facility] [address] [place] [address] Dr. Wilbert Gomez CRPon 07-30-2021 CRP 1.5 mg/dL Critically high <=1.0 [facility] Comment on above: Performed By: #### C JENELLE, ALT, CRP, ALB #### [facility] [address] [place] [address] Dr. Wilbert Gomez [facility] 14 mm/hr Normal <=30 [facility] Comment on above: Performed By: #### S EDR #### [facility] [address] [place] [address] Dr. Wilbert Gomez SGPTon 07-30-2021 ALT [Catalytic activity/Vol] 38 U/L Normal 14-59 [facility] Comment on above: Performed By: #### C JENELLE, ALT, CRP, ALB #### [facility] [address] [address] [address] Wilbert Gomez MG MAMM SCREEN 3D MICHELLE CADon 07-16-2021 MG MAMM SCREEN 3D MICHELLE CAD Patient: CIELO RAY Exam Date: 07/16/2021 : 1965 Gender:F Ordering : [facility] Admission #: [id number] Family : Order #: [id number] CLICK HERE TO VIEW EXAM RADIOLOGY REPORT [...] breast cancer at age 55. LOCATION: [facility] BREAST COMPOSITION: Heterogeneously dense,which may obscure [...] Perla M.D. on 07/17/2021 at 09:49 Normal [facility] Vital Signs Date Time Vital Sign Value Performing Clinician Matias bell 02-23-2024 15:43-0500 Body height 167.6 cm Karolina Boothe DPM FACFAS Work Phone: [facility] 02-23-2024 15:43-0500 Body mass index (BMI) [Ratio] 29.38 kg/m2 Karolina Boothe DPM FACFAS Work Phone: [facility] 02-23-2024 15:43-0500 Body weight 82.56 kg Karolina Dolce DPM FACFAS Work Phone: [facility] 02-23-2024 15:43-0500 Diastolic blood pressure 76 mm[Hg] Karolina Dolce DPM FACFAS Work Phone: [facility] 02-23-2024 15:43-0500 Heart rate 85 /min Karolina Dolce DPM FACFAS Work Phone: [facility] 02-23-2024 15:43-0500 Systolic blood pressure 128 mm[Hg] Karolina Dolce DPM FACFAS Work Phone: [facility] 01-26-2024 16:45-0500 Body height 167.6 cm Karolina Dolce DPM FACFAS Work Phone: [facility] 01-26-2024 16:45-0500 Body mass index (BMI) [Ratio] 29.38 kg/m2 Karolina Dolce DPM FACFAS Work Phone: [facility] 01-26-2024 16:45-0500 Body weight 82.56 kg Karolina Dolce DPM FACFAS Work Phone: [facility] 01-26-2024 16:45-0500 Diastolic blood pressure 75 mm[Hg] Karolina Dolce DPM FACFAS Work Phone: [facility] 01-26-2024 16:45-0500 Heart rate 82 /min Karolina Dolce DPM FACFAS Work Phone: [facility] 01-26-2024 16:45-0500 Systolic blood pressure 130 mm[Hg] Karolina Dolce DPM FACFAS Work Phone: [facility] 10-27-2023 15:33-0400 Body height 167.6 cm Karolina Dolce DPM FACFAS Work Phone: [facility] 10-27-2023 15:33-0400 Body mass index (BMI) [Ratio] 29.38 kg/m2 Karolina Dolce DPM FACFAS Work Phone: [facility] 10-27-2023 15:33-0400 Body weight 82.56 kg Karolina Dolce DPM FACFAS Work Phone: [facility] 10-27-2023 15:33-0400 Diastolic blood pressure 74 mm[Hg] Karolina Dolce DPM FACFAS Work Phone: [facility] 10-27-2023 15:33-0400 Heart rate 80 /min Karolina Dolce DPM FACFAS Work Phone: [facility] 10-27-2023 15:33-0400 Systolic blood pressure 132 mm[Hg] Karolina Dolce DPM FACFAS Work Phone: [facility] Encounters Encounter Date Encounter Type Care Provider Facility Start: 02-23-2024 End: 02-23-2024 Office outpatient visit 25 minutes Karolina R Dolce DPM FACFAS Work Phone: [facility] Comment on above: Arciniega neuroma, righ t (Primary Dx); Metatarsal deformity, right Start: 02-23-2024 End: 02-23-2024 ambulatory KAROLINA R DOLCE Not Available Start: 02-23-2024 End: 02-23-2024 Bamboo flowsheet Karolina R Dolce DPM FACFAS Work Phone: [facility] Start: 02-23-2024 End: 02-23-2024 Bamboo flowsheet Karolina R Dolce DPM FACFAS Work Phone: [facility] Start: 01-26-2024 End: 01-26-2024 Office outpatient visit 15 minutes Karolina R Dolce DPM FACFAS Work Phone: [facility] Comment on above: Metatarsal deformity [...] 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 Start: 09-13-2023 End: 09-13-2023 ambulatory KAROLINA R DOLCE Not Available Start: 08-25-2023 End: 08-25-2023 ambulatory KAROLINA R DOLCE Not Available Start: 07-26-2023 End: 07-26-2023 ambulatory KAROLINA R DOLCE Not Available Start: 07-05-2023 End: 07-05-2023 ambulatory KAROLINA R DOLCE Not Available Start: 06-22-2022 End: 06-22-2022 ambulatory Esdras Bonilla Facility:[facility] Start: 06-02-2022 ambulatory TERESA DE Facility: H1 [...] medical examination without abnormal findings TERESA DE [facility] Start: 10-08-2021 End: 10-09-2021 ambulatory TERESA DE Facility:[facility]1 Start: 10-08-2021 End: 10-09-2021 Encounter for general adult medical examination without abnormal findings TERESA DE Facility:[facility] Start: 07-30-2021 End: 07-31-2021 ambulatory ERIKA MCCRACKEN Facility:[facility]1 Start: 07-16-2021 End: 07-17-2021 ambulatory TERESA DE Facility:[facility]1 Plan of Treatment Date Care Activity Detail Author Start: 02-23-2024 End: 02-23-2024 Patient encounter procedure 02/23/2024 3:40 PM EST Office Visit [facility] [address] [place] [phone] Karolina Boothe R, DPM FACFAS [address] [place] [address] Arrived [facility] Comment on above: Arrived Start: 01-26-2024 End: 01-26-2024 Patient encounter procedure 01/26/2024 4:50 PM EST Office Visit [facility] [address] [place] [phone] Karolina Boothe R, DPM FACFAS [address] [place] [address] Arrived [facility] Comment on above: Arrived Start: 10-27-2023 End: 10-27-2023 Patient encounter procedure 10/27/2023 3:30 PM EDT Office Visit [facility] [address] [place] [id number] Karolina Boothe, DPM FACFAS [address] [place] [address] Arrived [facility] Comment on above: Arrived Start: 10-16-2023 Influenza vaccination Influenza Vacc ine (#1) [facility] Start: 2005 Screening for malign ant neoplasm of breast Mammogram [facility] Start: 11-13-1995 Screening for malign ant neoplasm of cervix [facility] Start: 1986 Screening for malign ant neoplasm of cervix Pap Smear [facility] Start: 1965 Screening for malign ant neoplasm of colon [facility] Payers Date Payer Category Payer [facility] BCBS [id number] 2023 Unknown BCBS BCBS xxxxxx [id number] 2023-Present [phone] [address] [place] [address] [id number] 2023 Unknown [id number] 2022 Self-pay 1965 Unknown [id number] [id number] 9.2.593 1965 Unknown [id number] 2.16.840.1.906443.3.57 9.2.593 1965 Unknown [id number] 2.16.840.1.737512.3.57 9.2.593 1965 Unknown [id number] 2.16.840.1.638341.3.57 9.2.593 1965 Unknown [id number] 2.16.840.1.872550.3.57 9.2.593 1965 Unknown [id number] 2.16.840.1.972369.3.57 9.2.593 1965 Unknown [id number] 2.16.840.1.317875.3.57 9.2.593 1965 Unknown [id number] 2.16.840.1.839655.3.57 9.2.593 1965 Unknown [id number] 2.16.840.1.615345.3.57 9.2.593 1965 Unknown [id number] 2.16.840.1.340571.3.57 9.2.593 1965 Unknown [id number] 2.16.840.1.387465.3.57 9.2.125 1965 Unknown [id number] 2.16.840.1.412514.3.57 9.2.125 1965 Unknown [id number] 2.16.840.1.796110.3.57 9.2.125 1965 Unknown [id number] 2.16.840.1.503492.3.57 9.2.1259 1965 Unknown [id number] 2.16.840.1.411884.3.57 9.2.1259 1965 Unknown [id number] 2.16.840.1.146944.3.57 9.2.125 1965 Unknown [id number] 2.16.840.1.554884.3.57 9.2.1259 1965 Unknown [id number] 2.16.840.1.309516.3.57 9.2.1259 1959 Unknown [id number] Unknown [id number] 2.16.840.1.273992.3.57 9.2.531 Social History Date Type Detail Facility Tobacco smoking status Harman french [facility] Start: 09-13-2023 End: 02-23-2024 Sex Assigned At Female Alejandro Vergara [facility] Start: 07-05-2023 Tobacco smoking stat [facility] Never smoked tobacco [facility] Work Phone: Start: 07-05-2023 Tobacco use and exposure Smokeless tobacco non-user [facility] Start: 09-13-2023 End: 02-23-2024 Alcoholic beverage intake Defer [facility] Start: 09-13-2023 End: 02-23-2024 History of Social function [facility] Start: 1965 Sex assigned at Not on file [facility] History of Present illness Narrative 02-23-2024 Karolina Boothe DPM FACFAS - 02/23/2024 3:40 PM EST Note Date & Type Note Facility 02-23-2024 History of Presen t illness Narrative Images from the original note were not included. Patient: Cielo Ray : 1965 PCP: Paul Villatoro MD SUBJECTIVE This is a 58 y.o. female that presents today to discuss their upcoming surgery. Planned procedure is neuroma resection right foot 2nd webspace. The patient has exhausted conservative care and wishes for surgical intervention. They have attempted numerous conservative options including: Shoe gear modifications, anti-inflammatory medications both steroid all and nonsteroidal, orthotic devices, cortisone injections, immobilization, physical therapy to no avail. They are here to sign consent forms and to address any other questions that may exist. Allergies: Not on File Past Medical History: [...] < 3 seconds Digits 1-5 bilateral NEURO: Simpson Scott 5.07 monofilament was intact B/L. Vibratory sensation was intact B/L Musculoskeletal: Muscle strength was +5 over 5 all intrinsic and extrinsic muscles tested. There is significant pain with direct palpation of the interspace right foot. There is burning and tingling noted with direct palpation of the interspace. Pain with lateral compression. Mild swelling within the interspace as well. Radiographs: AP/MO/LAT: Patient had an x-ray 2 months ago that was reviewed Diagnostic ultrasound: ASSESSMENT 1. Metatarsal deformity, right 2. Arciniega neuroma, right PLAN The patient was educated on the pre, shauna, postoperative course of the procedure in great detail. I reviewed the preoperative laboratory and diagnostic findings today. We discussed further conservative therapies which the patient has attempted and has failed. I discussed the surgical procedure in great detail including the risks and possible complications. We discussed the following complications in great detail including but not limited to: Pain, infection, prolonged swelling, numbness, tingling, burning, nonhealing wound, nonunion, malunion, chronic pain, development of complex regional pain syndrome, development of deep venous thrombosis. Patient fully understood all possible risks and complications. All questions have been asked and answered. They have consented for the above-stated procedure. End february RADHA Morales documented in this encounter [facility] History of Present illness Narrative 01-26-2024 RADHA Morales - 01/26/2024 4:50 PM EST Note Date [...] < 3 seconds Digits 1-5 bilateral NEURO: Simpson Scott 5.07 monofilament was intact B/L. Vibratory [...] avoid injection into the underlying subcutaneous tissue. Karolina Boothe DPM FACFAS documented in this encounter [facility] History [...] ankle with positive rheumatoid factor (HCC) (CMS/HCC) PLAN Discussed in great detail the MRI findings patient is progressing well since her last injection she does not want to have any surgery at this time. Did briefly discuss neuroma resection. She will follow up as needed she is to continue with good structured shoes. RADHA Morales documented in this encounter [facility] Evaluation + Plan note Note Date & Type Note Facility Evaluation + Plan note No data available for this section [facility] Evaluation note Note Date & Type Note Facility Evaluation note Diagnosis Arciniega neuroma, right- Primary Metatarsal deformity, right 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) (CMS/HCC) documented in this encounter [facility] Evaluation note Note Date & Type Note Facility Evaluation note Diagnosis Metatarsal deformity, right- Primary Arciniega neuroma, right Right foot pain Pain in soft tissues of limb documented in this encounter [facility] Healthcare Evaluation note Note Date & Type Note Facility Evaluation note Diagnosis Arciniega neuroma, right- Primary Metatarsal deformity, right documented in this encounter [facility] Hospital Discharge instructions Note Date & Type Note Facility Hospital Discharge instructions No data available for this section [facility] Progress note Note Date & Type Note Facility Progress note No data available for this section [facility] Summary Purpose Family History No Family History Records FoundNo Family History Records Found No data available for this section No Family History Records Found Advance Directives No Advanced Directives Records FoundNo Advanced Directives Records FoundNo Advanced Directives Records Found Additional Source Comments INFORMATION SOURCE (unrecogn ized section and content) DATE CREATED AUTHOR 06/03/2022 [facility] DATE CREATED AUTHOR AUTHOR'S ORGANIZ ATION 06/26/2022 [facility] DATE CREATED AUTHOR AUTHOR'S ORGANIZ ATION 02/28/2024 [facility] Specialists EPIC Patient Care team informatio n (unrecognized section and content) Boiler Inspector Relationship Specialty Start Date End Date Paul Villatoro MD [address] [place] [address] PCP - General Family Medicine 09/13/23 Teresa De MD [address] [phone] Referring Physician Family Medicine 07/05/23 Boiler Inspector Relationship Specialty Start Date End Date Paul Villatoro MD [address] [place] [address] PCP - General Family Medicine 09/13/23 Teresa De MD [address] [place] [address] Referring Physician Family Medicine 07/05/23 Boiler Inspector Relationship Specialty Start Date End Date Paul Villatoro MD [address] [place] [address] PCP - General Family Medicine 09/13/23 Teresa De MD [address] [place] [address] Referring Physician Family Medicine 07/05/23 Reason for Visit (unrecogniz ed section and content) Reason Comments Follow-up F/U RT foot MRI Reason Comments Neuroma RT foot neuroma pain Reason Comments Neuroma Wants to discuss sheyla varun for neuroma on RT foot FOR RECORDS PERTAINING TO PATIENTS WHO ARE [...] BE BASED ON THE PRIMARY CLINICAL RECORDS. [facility]. provides no warranty or guarantee of the accuracy or completeness of information in this document.
[2024-03-10 12:37] LABS: Hematocrit 42.6 % (36.0-48.0); Hemoglobin 13.8 g/dL (12.0-16.0); Mean Corpuscular HGB Conc 32.4 g/dL (29.9-35.2); Mean Corpuscular Hemoglobin 31.2 pg (26.7-34.0); Mean Corpuscular Volume 96.4 fL (81.0-99.0); Mean Platelet Volume 8.9 fL (9.5-13.5); Platelet Count 268 10^3/uL (150-450); Red Blood Count 4.42 10^6/uL (4.20-5.40); Red Cell Distribution Width 13.2 % (11.0-15.0); White Blood Count 6.6 10^3/uL (4.0-11.0)
[2024-03-10 12:54] LABS: Erythrocyte Sedimentation Rate 59 mm/hr (<=30)
[2024-03-10 13:50] LABS: Lymphocytes Absolute Manual 0.39 10^3/uL (1.20-3.80); Monocytes Absolute Manual 0.26 10^3/uL (0.30-0.80); Segmented Neut Absolute Manual 5.94 10^3/uL (1.4-6.5)
== END 2024-03-10 11:59 | disposition home or self-care (01) ==
PROVIDERS: PCP Nurse Practitioner Family; Visit Provider Internal Medicine Rheumatology
DX: M05.79 Rheumatoid arthritis with rheumatoid factor of multiple sites without organ or systems involvement (principal); Z79.899 Other long term (current) drug therapy
CPT/HCPCS: 36415; 85007; 85027; 85652

== ENCOUNTER 2024-03-10 12:04 | Outpatient (OUT) | payer BC, SELFPAY ==
--- OUTSIDE RECORDS SUMMARY | 2024-03-10 12:09 | XMS_ITS | CCD ---
Author Organization [facility] Care Team Providers Care Director Of Bands Name Role Phone TERESA DE Attending Unavailable [...] 06-22-2022 Antinuclear Abs, IFA Negative Normal . [facility] Comment on above: Result Comment: Nega tive <1:80 Borderline 1:80 Positive >1:80 ICAP nomenclature: AC-0 For more information about Hep-2 cell patterns use ANApatterns.org, the official website for the International Consensus on Antinuclear Antibody (GERONIMO) Patterns (ICAP). Performed at: [facility] [id number] Rescue Boat Operator: Charlie Arevalo PhD, Phone: [phone] Performed By: #### A DNA, C4, GERONIMO, CH50, C3, LOZOYA #### [facility] , Anti-Lozoya Antibodieson Anti-Lozoya Antibodies <0.2 Normal 0.0-0.9 [facility] Comment on above: Performed By: #### A DNA, C4, GERONIMO, CH50, C3, LOZOYA #### [facility] , Anti-dsDNA(DBL)Abon 06-23-19 23 Anti-dsDNA(DBL)Ab 1 Normal 0-9 [facility] Comment on above: Result Comment: Nega tive <5 Equivocal 5 - 9 Positive >9 Performed at: [facility] [email or web address] [id number] Rescue Boat Operator: Charlie Arevalo PhD, Phone: [phone] PERFORMED BY: [place] [address] [address] [place] [address] PATHOLOGIST HAIR WORKER EULALIA OLSEN M.D. Performed By: #### A DNA, C4, GERONIMO, CH50, C3, LOZOYA #### [facility] , C-Reactive Proteinon 023 C-Reactive Protein 1.1 mg/dL High 0.0-0.5 [facility] Comment on above: Result Comment: PERF ORMED BY: [address] [address] PATHOLOGIST HAIR WORKER EULALIA OLSEN M.D. Performed By: #### A DNA, C4, GERONIMO, CH50, C3, LOZOYA #### [facility] , Complement C3on 06-22-2022 Complement C3 147 mg/dL Normal 82-167 [facility] Comment on above: Result Comment: Perf ormed at: [facility] [email or web address] [id number] Rescue Boat Operator: Charlie Arevalo PhD, Phone: [phone] Performed By: #### A DNA, C4, GERONIMO, CH50, C3, LOZOYA #### [facility] , Complement C4on 06-22-2022 Complement C4 33 mg/dL Normal 12-38 [facility] Comment on above: Performed By: #### A DNA, C4, GERONIMO, CH50, C3, LOZOYA #### [facility] , Complement Total (CH50)on Complement Total (CH50) 55 Normal >41 [facility] Comment on above: Result Comment: Age [...] determine out of range values. Performed at: [facility] [email or web address] [id number] Rescue Boat Operator: Charlie Arevalo PhD, Phone: [phone] PERFORMED BY: [facility] [address] [place] [address] PATHOLOGIST HAIR WORKER EULALIA OLSEN M.D. Performed By: #### A DNA, C4, GERONIMO, CH50, C3, LOZOYA #### [facility] , Complete Blood Count Auto Di ffon 06-22-2022 Basophils (Bld) [#/Vol] 0.1 10*3/uL Normal 0.0-0.2 [facility] Comment on above: Performed By: #### H BCAB, HBSAG, HCV RX PCR, HBSAB #### [facility] , #### ADDONUAPLUS, ESR, CBC, CMP, CRP #### [address] Basophils/100 WBC (Bld) 0.7 % Normal . [facility] Comment on above: Performed By: #### H BCAB, HBSAG, HCV RX PCR, HBSAB #### [facility] , #### ADDONUAPLUS, ESR, CBC, CMP, CRP #### [address] Eosinophils (Bld) [#/Vol] 0.3 10*3/uL Normal 0.0-0.45 [facility] Comment on above: Performed By: #### H BCAB, HBSAG, HCV RX PCR, HBSAB #### [facility] , #### ADDONUAPLUS, ESR, CBC, CMP, CRP #### [address] Eosinophils/100 WBC (Bld) 3.8 % Normal . [facility] Comment on above: Performed By: #### H BCAB, HBSAG, HCV RX PCR, HBSAB #### [facility] , #### ADDONUAPLUS, ESR, CBC, CMP, CRP #### [address] Erythrocyte distribution width (RBC) [Ratio] 13.7 % Normal 11.9-15.3 [facility] Comment on above: Performed By: #### H BCAB, HBSAG, HCV RX PCR, HBSAB #### [facility] , #### ADDONUAPLUS, ESR, CBC, CMP, CRP #### [address] Hematocrit (Bld) [Volume fraction] 39.4 % Normal 34.0-46.4 [facility] Comment on above: Performed By: #### H BCAB, HBSAG, HCV RX PCR, HBSAB #### [facility] , #### ADDONUAPLUS, ESR, CBC, CMP, CRP #### [address] Hemoglobin (Bld) [Mass/Vol] 13.0 g/dL Normal 11.8-15.4 [facility] Comment on above: Performed By: #### H BCAB, HBSAG, HCV RX PCR, HBSAB #### [facility] , #### ADDONUAPLUS, ESR, CBC, CMP, CRP #### [address] Lymphocytes (Bld) [#/Vol] 2.5 10*3/uL Normal 1.00-4.8 [facility] Comment on above: Performed By: #### H BCAB, HBSAG, HCV RX PCR, HBSAB #### [facility] , #### ADDONUAPLUS, ESR, CBC, CMP, CRP #### [address] Lymphocytes/100 WBC (Bld) 35.4 % Normal . [facility] Comment on above: Performed By: #### H BCAB, HBSAG, HCV RX PCR, HBSAB #### [facility] , #### ADDONUAPLUS, ESR, CBC, CMP, CRP #### [address] MCH (RBC) [Entitic mass] 31.3 pg Normal 24.7-34.3 [facility] Comment on above: Performed By: #### H BCAB, HBSAG, HCV RX PCR, HBSAB #### [facility] , #### ADDONUAPLUS, ESR, CBC, CMP, CRP #### [address] MCV (RBC) [Entitic vol] 94.7 fL Normal 80-100 [facility] Comment on above: Performed By: #### H BCAB, HBSAG, HCV RX PCR, HBSAB #### [facility] , #### ADDONUAPLUS, ESR, CBC, CMP, CRP #### [address] Mean Corpuscular HGB Conc 33.1 g/dL Normal 32.0-35.0 [facility] Comment on above: Performed By: #### H BCAB, HBSAG, HCV RX PCR, HBSAB #### [facility] , #### ADDONUAPLUS, ESR, CBC, CMP, CRP #### [address] Monocytes (Bld) [#/Vol] 0.3 10*3/uL Normal 0.0-0.8 [facility] Comment on above: Performed By: #### H BCAB, HBSAG, HCV RX PCR, HBSAB #### [facility] , #### ADDONUAPLUS, ESR, CBC, CMP, CRP #### [address] Monocytes/100 WBC (Bld) 4.7 % Normal . [facility] Comment on above: Performed By: #### H BCAB, HBSAG, HCV RX PCR, HBSAB #### [facility] , #### ADDONUAPLUS, ESR, CBC, CMP, CRP #### [address] Neutrophils (Bld) [#/Vol] 3.9 10*3/uL Normal 1.8-7.7 [facility] Comment on above: Performed By: #### H BCAB, HBSAG, HCV RX PCR, HBSAB #### [facility] , #### ADDONUAPLUS, ESR, CBC, CMP, CRP #### [address] Neutrophils/100 WBC (Bld) 55.4 % Normal . [facility] Comment on above: Performed By: #### H BCAB, HBSAG, HCV RX PCR, HBSAB #### [facility] , #### ADDONUAPLUS, ESR, CBC, CMP, CRP #### [address] NRBC% 0.0 /100{WBC} Normal 0-0.5 [facility] Comment on above: Performed By: #### H BCAB, HBSAG, HCV RX PCR, HBSAB #### [facility] , #### ADDONUAPLUS, ESR, CBC, CMP, CRP #### [address] Platelet mean volume (Bld) [Entitic vol] 7.5 fL Normal 6.3-10.7 [facility] Comment on above: Performed By: #### H BCAB, HBSAG, HCV RX PCR, HBSAB #### [facility] , #### ADDONUAPLUS, ESR, CBC, CMP, CRP #### [address] Platelets (Bld) [#/Vol] 299 10*3/uL Normal 150-450 [facility] Comment on above: Performed By: #### H BCAB, HBSAG, HCV RX PCR, HBSAB #### [facility] , #### ADDONUAPLUS, ESR, CBC, CMP, CRP #### [address] RBC (Bld) [#/Vol] 4.17 10*6/uL Normal 3.60-5.00 [facility] Comment on above: Performed By: #### H BCAB, HBSAG, HCV RX PCR, HBSAB #### [facility] , #### ADDONUAPLUS, ESR, CBC, CMP, CRP #### [facility] [address] WBC (Bld) [#/Vol] 7.1 10*3/uL Normal 3.8-11.6 [facility] Comment on above: Performed By: #### H BCAB, HBSAG, HCV RX PCR, HBSAB #### [facility] , #### ADDONUAPLUS, ESR, CBC, CMP, CRP #### [facility] [address] Comprehensive Metabolic Pane darshan 06-22-2022 Albumin [Mass/Vol] 4.4 g/dL Normal 3.5-5.7 [facility] Comment on above: Performed By: #### A DNA, C4, GERONIMO, CH50, C3, LOZOYA #### [facility] , Albumin/Globulin [Mass ratio] 1.6 {ratio} Normal [facility] Comment on above: Performed By: #### A DNA, C4, GERONIMO, CH50, C3, LOZOYA #### [facility] , ALP [Catalytic activity/Vol] 78 U/L Normal 34-104 [facility] Comment on above: Performed By: #### A DNA, C4, GERONIMO, CH50, C3, LOZOYA #### [facility] , ALT [Catalytic activity/Vol] 21 U/L Normal 7-52 [facility] Comment on above: Performed By: #### A DNA, C4, GERONIMO, CH50, C3, LOZOYA #### [facility] , Anion gap [Moles/Vol] 12.9 mmol/L Normal 6.0-15.0 [facility] Comment on above: Performed By: #### A DNA, C4, GERONIMO, CH50, C3, LOZOYA #### [facility] , AST [Catalytic activity/Vol] 24 U/L Normal 13-39 [facility] Comment on above: Performed By: #### A DNA, C4, GERONIMO, CH50, C3, LOZOYA #### [facility] , Bilirubin [Mass/Vol] 0.9 mg/dL Normal 0.3-1.0 [facility] Comment on above: Performed By: #### A DNA, C4, GERONIMO, CH50, C3, LOZOYA #### [facility] , Calcium [Mass/Vol] 9.0 mg/dL Normal 8.6-10.3 [facility] Comment on above: Performed By: #### A DNA, C4, GERONIMO, CH50, C3, LOZOYA #### [facility] , Chloride [Moles/Vol] 106 mmol/L Normal 98-107 [facility] Comment on above: Performed By: #### A DNA, C4, GERONIMO, CH50, C3, LOZOYA #### [facility] , CO2 [Moles/Vol] 25.2 mmol/L Normal 21.0-31.0 [facility] Comment on above: Performed By: #### A DNA, C4, GERONIMO, CH50, C3, LOZOYA #### [facility] , Creatinine [Mass/Vol] 0.79 mg/dL Normal 0.60-1.20 [facility] Comment on above: Performed By: #### A DNA, C4, GERONIMO, CH50, C3, LOZOYA #### [facility] , GFR/1.73 sq M.predicted MDRD (S/P/Bld) [Vol rate/Area] mL/min/{1.73_m2} [facility] Comment on above: Performed By: #### A DNA, C4, GERONIMO, CH50, C3, LOZOYA #### [facility] , Globulin (S) [Mass/Vol] 2.8 g/dL [facility] Comment on above: Performed By: #### A DNA, C4, GERONIMO, CH50, C3, LOZOYA #### [facility] , Glucose [Mass/Vol] 97 mg/dL Normal 70-100 [facility] Comment on above: Result Comment: [place] om Glucose Reference Range is dependent on time and content of last meal. Glucose of more than 200 mg/dL in a nonstressed, ambulatory subject supports the diagnosis of Diabetes Mellitus. ADA recommended reference range Performed By: #### A DNA, C4, GERONIMO, CH50, C3, LOZOYA #### [facility] , Potassium [Moles/Vol] 4.1 mmol/L Normal 3.5-5.1 [facility] Comment on above: Performed By: #### A DNA, C4, GERONIMO, CH50, C3, LOZOYA #### [facility] , Protein [Mass/Vol] 7.2 g/dL Normal 6.4-8.9 [facility] Comment on above: Performed By: #### A DNA, C4, GERONIMO, CH50, C3, LOZOYA #### [facility] , Sodium [Moles/Vol] 140 mmol/L Normal 136-145 [facility] Comment on above: Performed By: #### A DNA, C4, GERONIMO, CH50, C3, LOZOYA #### [facility] , Urea nitrogen [Mass/Vol] 12 mg/dL Normal 7-25 [facility] Comment on above: Performed By: #### A DNA, C4, GERONIMO, CH50, C3, LOZOYA #### [facility] , Dipstick and Microscopicon 0 06-22-2022 Appearance (U) Clear Normal Clear [facility] Comment on above: Order Comment: Name Collection Type:: Clean-Voided Midstream Performed By: #### H BCAB, HBSAG, HCV RX PCR, HBSAB #### [facility] , #### ADDONUAPLUS, ESR, CBC, CMP, CRP #### [facility] [address] [place] [address] [place] Bacteria,Urine 1+ High None Seen [facility] Comment on above: Order Comment: Name Collection Type:: Clean-Voided Midstream Performed By: #### H BCAB, HBSAG, HCV RX PCR, HBSAB #### [facility] , #### ADDONUAPLUS, ESR, CBC, CMP, CRP #### [facility] [address] [place] [address] Bilirubin,Urine Negative Normal Negative [facility] Comment on above: Order Comment: Name Collection Type:: Clean-Voided Midstream Performed By: #### H BCAB, HBSAG, HCV RX PCR, HBSAB #### [facility] , #### ADDONUAPLUS, ESR, CBC, CMP, CRP #### [facility] [address] [place] [address] Color (U) Yellow Normal Yellow [facility] Comment on above: Order Comment: Name Collection Type:: Clean-Voided Midstream Performed By: #### H BCAB, HBSAG, HCV RX PCR, HBSAB #### [facility] , #### ADDONUAPLUS, ESR, CBC, CMP, CRP #### [facility] [address] [place] [address] Glucose Ql (U) Normal Normal Normal [facility] Comment on above: Order Comment: Name Collection Type:: Clean-Voided Midstream Performed By: #### H BCAB, HBSAG, HCV RX PCR, HBSAB #### [facility] , #### ADDONUAPLUS, ESR, CBC, CMP, CRP #### [facility] [address] [place] [address] Hyaline Casts,Urine 0-8 Normal 0-8 [facility] Comment on above: Order Comment: Name Collection Type:: Clean-Voided Midstream Result Comment: PERF ORMED BY: [place] [address] PATHOLOGIST HAIR WORKER EULALIA OLSEN M.D. Performed By: #### H BCAB, HBSAG, HCV RX PCR, HBSAB #### [facility] , #### ADDONUAPLUS, ESR, CBC, CMP, CRP #### [facility] [address] [place] [address] Ketones Ql (U) Negative Normal Negative [facility] Comment on above: Order Comment: Name Collection Type:: Clean-Voided Midstream Performed By: #### H BCAB, HBSAG, HCV RX PCR, HBSAB #### [facility] , #### ADDONUAPLUS, ESR, CBC, CMP, CRP #### [facility] [address] [place] [address] Leukocyte esterase Test strip Ql (U) Negative Normal Negative [facility] Comment on above: Order Comment: Name Collection Type:: Clean-Voided Midstream Performed By: #### H BCAB, HBSAG, HCV RX PCR, HBSAB #### [facility] , #### ADDONUAPLUS, ESR, CBC, CMP, CRP #### [facility] [address] [place] [address] Nitrite,Urine Negative Normal Negative [facility] Comment on above: Order Comment: Name Collection Type:: Clean-Voided Midstream Performed By: #### H BCAB, HBSAG, HCV RX PCR, HBSAB #### [facility] , #### ADDONUAPLUS, ESR, CBC, CMP, CRP #### [facility] [address] [place] [address] Occult Blood,Urine Negative Normal Negative [facility] Comment on above: Order Comment: Name Collection Type:: Clean-Voided Midstream Performed By: #### H BCAB, HBSAG, HCV RX PCR, HBSAB #### [facility] , #### ADDONUAPLUS, ESR, CBC, CMP, CRP #### [facility] [address] [place] [address] pH (U) 5.5 [pH] Normal 5.0-9.0 [facility] Comment on above: Order Comment: Name Collection Type:: Clean-Voided Midstream Performed By: #### H BCAB, HBSAG, HCV RX PCR, HBSAB #### [facility] , #### ADDONUAPLUS, ESR, CBC, CMP, CRP #### [address] Protein,Urine Negative Normal Negative [facility] Comment on above: Order Comment: Name Collection Type:: Clean-Voided Midstream Performed By: #### H BCAB, HBSAG, HCV RX PCR, HBSAB #### [facility] , #### ADDONUAPLUS, ESR, CBC, CMP, CRP #### [facility] [address] RBC,Urine 3-4 Normal 0-4 [facility] Comment on above: Order Comment: Name Collection Type:: Clean-Voided Midstream Performed By: #### H BCAB, HBSAG, HCV RX PCR, HBSAB #### [facility] , #### ADDONUAPLUS, ESR, CBC, CMP, CRP #### [facility] [address] [place] [address] Specificy [place]end[place],Urine 1.021 Normal 1.001-1.030 [facility] Comment on above: Order Comment: Name Collection Type:: Clean-Voided Midstream Performed By: #### H BCAB, HBSAG, HCV RX PCR, HBSAB #### [facility] , #### ADDONUAPLUS, ESR, CBC, CMP, CRP #### [facility] [address] [place] [address] Squamous Epithelial Cell,Urine 5-9 High 0-2 [facility] Comment on above: Order Comment: Name Collection Type:: Clean-Voided Midstream Performed By: #### H BCAB, HBSAG, HCV RX PCR, HBSAB #### [facility] , #### ADDONUAPLUS, ESR, CBC, CMP, CRP #### [facility] [address] [place] [address] Urobilinogen,Urine Normal Normal Normal [facility] Comment on above: Order Comment: Name Collection Type:: Clean-Voided Midstream Performed By: #### H BCAB, HBSAG, HCV RX PCR, HBSAB #### [facility] , #### ADDONUAPLUS, ESR, CBC, CMP, CRP #### [facility] [address] WBC,Urine 5-9 High 0-4 [facility] Comment on above: Order Comment: Name Collection Type:: Clean-Voided Midstream Performed By: #### H BCAB, HBSAG, HCV RX PCR, HBSAB #### [facility] , #### ADDONUAPLUS, ESR, CBC, CMP, CRP #### [facility] [address] [place] [address] Erythrocyte Sedimentation Ra raymond 06-22-2022 ESR (Bld) [Velocity] 36 mm/h High 0-29 [facility] Comment on above: Result Comment: PERF ORMED BY: [place] [address] PATHOLOGIST HAIR WORKER EULALIA OLSEN M.D. Performed By: #### A DNA, C4, GERONIMO, CH50, C3, LOZOYA #### [facility] , Hep C Ab wRfx to Qnt PCRon 0 06-22-2022 Hepatitis C Virus Antibody Non-Reactive Normal Non Reactive [facility] Comment on above: Performed By: #### A DNA, C4, GERONIMO, CH50, C3, LOZOYA #### [facility] , Interpretation Hepatitis C Normal . [facility] Comment on above: Result Comment: Not infected with HCV unless early or acute infection is suspected (which may be delayed in an immunocompromised individual), or other evidence exists to indicate HCV infection. Performed By: #### A DNA, C4, GERONIMO, CH50, C3, LOZOYA #### [facility] , Hepatitis B Core Antibodyon 06-22-2022 Hepatitis B Core Antibody Negative Normal Negative [facility] Comment on above: Result Comment: Perf ormed at: [facility] [id number] Rescue Boat Operator: Charlie Arevalo PhD, Phone: [phone] Performed By: #### A DNA, C4, GERONIMO, CH50, C3, LOZOYA #### [facility] , Hepatitis B Surface Antibody on 06-22-2022 Hepatitis B Surface Antibody Non-Reactive Normal . [facility] Comment on above: Result Comment: Non Reactive: Inconsistent with immunity, less than 10 mIU/mL Reactive: Consistent with immunity, greater than 9.9 mIU/mL Performed By: #### A DNA, C4, GERONIMO, CH50, C3, LOZOYA #### [facility] , Hepatitis B Surface Antigeno n 06-22-2022 HBsAg Screen Negative Normal Negative [facility] Comment on above: Result Comment: PERF ORMED BY: [place] [address] PATHOLOGIST HAIR WORKER EULALIA OLSEN M.D. Performed By: #### A DNA, C4, GERONIMO, CH50, C3, LOZOYA #### [facility] , XR chest 2V*on 06-22-2022 XR chest 2V* [place] [address] XRay Report Signed Patient: Cielo Ray MR#: [id number] 66 : 1965 Acct:[id number] Age/Sex: 56 / F ADM Date: 06/22/22 Loc: ICXD Room: Type: [facility] Attending Dr: Esdras Bonilla MD Copies to: [...] Vitale Jr., D.OHong06/22/2022 4:08 PM Dictation Location: [place] [address] Transcribed By: [facility] 06/22/22 1608 Dictated By: Cr Vitale Jr, DO 06/22/22 1608 Signed By: 06/22/22 1608 Normal [facility] XR hand BI 2Von 06-22-2022 XR hand BI 2V [facility] [address] [place], [place] [id number] XRay Report Signed Patient: Cielo Ray MR#: [id number] 66 : 1965 Acct:[id number] Age/Sex: 56 / F ADM Date: 06/22/22 Loc: ICXD Room: Type: [facility] Attending Dr: Esdras Bonilla MD Copies to: [...] Vitale Jr., DHongOHong06/22/2022 4:12 PM Dictation Location: [place] [address] Transcribed By: [facility] 06/22/22 161 Dictated By: Cr Vitale Jr, DO 06/22/22 1608 Signed By: 06/22/22 1612 [facility] VC CONSULT FOLLOWUPon 2021 VC CONSULT FOLLOWUP Patient: JEAN PIERRE RAY Exam Date: 02/02/2022 : 1965 Gender:F Ordering : DR KEILA DE LA FUENTE M.D. Admission #: [id number] Family : Order #: [id number] CLICK HERE TO VIEW EXAM RADIOLOGY REPORT [...] Perla M.D. on 02/02/2022 at 15:55 Normal [facility] VC EXT VENOUS LT LIMITEDon 1 04-05-2021 VC EXT VENOUS LT LIMITED Patient: CIELO RAY Exam Date: 02/02/2022 : 1965 Gender:F Ordering : DR KEILA DE LA FUENTE M.D. Admission #: [id number] Family : Order #: [id number] CLICK HERE TO VIEW EXAM RADIOLOGY REPORT [...] Perla M.D. on 02/02/2022 at 15:51 Normal [facility] VC ENDOVENOUS ABL 1ST V LTon 01-26-2022 VC ENDOVENOUS ABL 1ST V LT Patient: CIELO RAY Exam Date: 01/26/2022 : 1965 Gender:F Ordering : DR KEILA DE LA FUENTE M.D. Admission #: [id number] Family : Order #: [id number] CLICK HERE TO VIEW EXAM RADIOLOGY REPORT [...] Fuente MD on 01/26/2022 at 16:08 Normal [facility] ALBUMINon 01-14-2022 Albumin [Mass/Vol] 3.6 g/dL Normal 3.4-5.0 [facility] Comment on above: Performed By: #### C JENELLE, ALB, ALT, CRP ####[facility] [address] [place] [address]Dr. Wilbert Gomez CBC AUTO DIFFon 01-14-2022 BASO # 0.0 103/ul Normal 0.0-0.1 [facility] Comment on above: Performed By: #### C BC #### [facility] [address] [place] [address] [address] Wilbert Gomez Basophils/100 WBC (Bld) 0.5 % Normal 0.2-2.0 [facility] Comment on above: Performed By: #### C BC #### [facility] [address] [place] [address] [address] Wilbert Gomez EO # 0.3 103/ul Normal 0.0-0.7 [facility] Comment on above: Performed By: #### C BC #### [facility] [address] [place] [address] [address] Wilbert Gomez Eosinophils/100 WBC (Bld) 4.2 % Normal 0.9-7.0 [facility] Comment on above: Performed By: #### C BC #### [facility] [address] [place] [address] Dr. Wilbert Gomez Erythrocyte distribution width (RBC) [Ratio] 13.6 % Normal 11.0-15.0 [facility] Comment on above: Performed By: #### C BC #### [facility] [address] [place] [address] Dr. Wilbert Gomez Hematocrit (Bld) [Volume fraction] 36.8 % Normal 36.0-48.0 [facility] Comment on above: Performed By: #### C BC #### [facility] [address] [place] [address] Dr. Wilbert Gomez Hemoglobin (Bld) [Mass/Vol] 12.1 g/dL Normal 12.0-16.0 [facility] Comment on above: Performed By: #### C BC #### [facility] [address] [place] [address] Dr. Wilbert Gomez IG # 0.02 10e3/ul Normal 0.00-0.03 [facility] Comment on above: Performed By: #### C BC #### [facility] [address] [place] [address] Dr. Wilbert Gomez IG % 0.3 % Normal 0.0-0.5 [facility] Comment on above: Performed By: #### C BC #### [facility] [address] [place] [address] Dr. Wilbert Gomez LYMPH # 2.6 103/ul Normal 1.2-3.8 [facility] Comment on above: Performed By: #### C BC #### [facility] [address] [place] [address] Dr. Wilbert Gomez Lymphocytes/100 WBC (Bld) 35.7 % Normal 20.5-60.0 [facility] Comment on above: Performed By: #### C BC #### [facility] [address] [place] [address] Dr. Wilbert Gomez MANUAL DIFF REQ NO Normal [facility] Comment on above: Performed By: #### C BC #### [facility] [address] [place] [address] Dr. Wilbert Gomez MCH (RBC) [Entitic mass] 31.7 pg Normal 26.7-34.0 [facility] Comment on above: Performed By: #### C BC #### [facility] [address] [place] [address] Dr. Wilbert Gomez MCHC (RBC) [Mass/Vol] 32.9 g/dL Normal 29.9-35.2 [facility] Comment on above: Performed By: #### C BC #### [facility] [address] [place] [address] Dr. Wilbert Gomez MCV (RBC) [Entitic vol] 96.3 fL Normal 81.0-99.0 [facility] Comment on above: Performed By: #### C BC #### [facility] [address] [place] [address] Dr. Wilbert Gomez MONO # 0.5 103/ul Normal 0.3-0.8 [facility] Comment on above: Performed By: #### C BC #### [facility] [address] [place] [address] Dr. Wilbert Gomez Monocytes/100 WBC (Bld) 6.2 % Normal 1.7-12.0 [facility] Comment on above: Performed By: #### C BC #### [facility] [address] [place] [address] Dr. Wilbert Gomez NEUT # 3.9 103/ul Normal 1.4-6.5 [facility] Comment on above: Performed By: #### C BC #### [facility] [address] [place] [address] Dr. Wilbert Gomez Neutrophils/100 WBC (Bld) 53.1 % Normal 43.0-75.0 [facility] Comment on above: Performed By: #### C BC #### [facility] [address] [place] [address] Dr. Wilbert Gomez Platelet mean volume (Bld) [Entitic vol] 8.9 fL Critically low 9.5-13.5 [facility] Comment on above: Performed By: #### C BC #### [facility] [address] [place] [address] Dr. Wilbert Gomez PLT 275 103/ul Normal 150-450 [facility] Comment on above: Performed By: #### C BC #### [facility] [address] [address] [address] Wilbert Gomez RBC 3.82 106/ul Critically low 4.20-5.40 [facility] Comment on above: Performed By: #### C BC #### [facility] [address] [address] [address] Wilbert Gomez WBC 7.3 103/ul Normal 4.0-11.0 [facility] Comment on above: Performed By: #### C BC #### [facility] [address] [address] [address] Wilbert Gomez CREATININEon 01-14-2022 Creatinine [Mass/Vol] 0.79 mg/dL Normal 0.55-1.02 [facility] Comment on above: Performed By: #### C JENELLE, ALB, ALT, CRP ####[facility] [address] [address]Dr. Wilbert Gomez EGFR-AF CYMRO >60 Normal >=60 [facility] Comment on above: Performed By: #### C JENELLE, ALB, ALT, CRP ####[facility] [address] [address]DrHong Gomez EGFR-NON AF CYMRO >60 Normal >=60 [facility] Comment on above: Performed By: #### C JENELLE, ALB, ALT, CRP ####[facility] [address] [address]DrHong Gomez CRPon 01-14-2022 CRP 1.1 mg/dL Critically high <=1.0 [facility] Comment on above: Performed By: #### C JENELLE, ALB, ALT, CRP ####[facility] [address] [address]DrHong Gomez SED RATE WESTERGRENon 2021 SED RATE 37 mm/hr Critically high <=30 [facility] Comment on above: Performed By: #### C BC #### [facility] [address] [place], [place] [address] Dr. Wilbert Gomez [facility] 01-14-2022 ALT [Catalytic activity/Vol] 30 U/L Normal 14-59 [facility] Comment on above: Performed By: #### C JENELLE, ALB, ALT, CRP ####[facility] [address] [place], [place] [address]XhDr. Wilbert Gomez VC CONSULT FOLLOWUPon 2021 VC CONSULT FOLLOWUP Patient: JEAN PIERRE RAY Exam Date: 12/29/2021 : 1965 Gender:F Ordering : DR KEILA DE LA FUENTE M.D. Admission #: [id number] Family : Order #: [id number] CLICK HERE TO VIEW EXAM RADIOLOGY REPORT [...] MD on 12/29/2021 at 15:41 Normal [facility] VC EXT VENOUS LT LIMITEDon 1 02-28-2021 VC EXT VENOUS LT LIMITED Patient: CIELO RAY Exam Date: 12/29/2021 : 1965 Gender:F Ordering : DR KEILA DE LA FUENTE M.D. Admission #: [id number] Family : Order #: [id number] CLICK HERE TO VIEW EXAM RADIOLOGY REPORT [...] Fuente MD on 12/29/2021 at 15:34 Normal [facility] VC ENDOVENOUS ABL 1ST V LTon 12-22-2021 VC ENDOVENOUS ABL 1ST V LT Patient: CIELO RAY Exam Date: 12/22/2021 : 1965 Gender:F Ordering : DR KEILA DE LA FUENTE M.D. Admission #: [id number] Family : Order #: [id number] CLICK HERE TO VIEW EXAM RADIOLOGY REPORT [...] La Fuente MD on 12/22/2021 at 16:10 [facility] CONSULTATIONon 11-30 VC COMP CONSULTATION Patient: KARINA RAY Exam Date: 11/30/2021 : 1965 Gender:F Ordering : DR KEILA DE LA FUENTE M.D. Admission #: [id number] Family : Order #: [id number] CLICK HERE TO VIEW EXAM RADIOLOGY REPORT [...] great saphenous and small saphenous veins. Bilateral first aid trainer veins and incompetent branch saphenous varicosities. PHYSICAL [...] arterial disease 5. CEAP: C2, EC, AP, DC PLAN: 1. Continued use of compression stockings 2. Elevated legs and increased physical activity symptomatic relief 3. Endovenous laser ablation of left great saphenous left small saphenous veins, left and right first aid trainer veins. 4. Microfoam chemical ablation of dilated, incompetent branch saphenous varicosities within right and left lower extremities Nurse notes, history and physical were reviewed and confirmed, see attached forms. The nurse was present throughout the physical exam and consultation Dictated by: Hayden Perla M.D. on 12/01/2021 at 08:06 Approved by: Hayden Perla M.D. on 12/01/2021 at 09:12 Normal [facility] VC VENOUS REFLUX MICHELLE LMTon 1 VC VENOUS REFLUX MICHELLE LMT Patient: CIELO RAY Exam Date: 11/30/2021 : 1965 Gender:F Ordering : DR KEILA DE LA FUENTE M.D. Admission #: [id number] Family : Order #: [id number] CLICK HERE TO VIEW EXAM RADIOLOGY REPORT [...] treated GSV. Incomptent varicose vein associated with first aid trainer distal thigh measures 6.2 mm with 2.6s [...] thrombus. Compressibility: Normal. Flow: Deep venous reflux. Plastering Supervisor: Two medial/distal lower leg perfs measures 3.9 [...] and small saphenous veins. 2. Dilated, incompetent first aid trainer veins and branch saphenous varicosities bilaterally. 3. Consultation for endovenous ablation is recommended. Dictated by: Hayden Perla M.D. on 11/30/2021 at 15:51 Approved by: Hayden Perla M.D. on 11/30/2021 at 15:53 Normal [facility] INSULINon 10-09-2021 Insulin 11.9 uIU/mL Normal 2.6-24.9 [facility] Comment on above: Performed By: #### I NSULIN ####[facility] [address] [address]Dr. Wilbert Gomez T4, T3U, FTI LABCORPon 10-09 Free Thyroxine Index 2.1 Normal 1.2-4.9 [facility] Comment on above: Performed By: #### T HYLC ####[facility] [address] [address]Dr. Wilbert Gomez T3 Uptake 29 % Normal 24-39 [facility] Comment on above: Performed By: #### T HYLC ####[facility] [address] [address]Dr. Wilbert Gomez T4 [Mass/Vol] 7.4 ug/dL Normal 4.5-12.0 [facility] Comment on above: Performed By: #### T HYLC ####[facility] [address] [place], [place] [address]Dr. Wilbert Jason GLYCOHEMOGLOBIN A1Con 2021 ADA RECOMMENDATION SEE BELOW Normal [facility] Comment on above: Result Comment: ADA RECOMMENDED LIMIT 4.0 - 6.0 ADA THERAPEUTIC TARGET < 7.0 ACTION SUGGESTED > 7.0 Performed By: #### A 1C ####[facility] [address] [address]Dr. Wilbert Gomez Glucose [Mass/Vol] 111 mg/dL Normal [facility] Comment on above: Performed By: #### A 1C ####[facility] [address] [place], [place] [address]Dr. Wilbert Gomez HbA1c (Bld) [Mass fraction] 5.5 % Normal 4.5-6.2 [facility] Comment on above: Performed By: #### A 1C ####[facility] [address] [id number] Gomez IRONon 10-08-2021 Iron [Mass/Vol] 67.0 ug/dL Normal 50.0-170.0 [facility] Comment on above: Performed By: #### I SOLA #### [facility] [address] [place], [place] [address] Dr. Wilbert Gomez LIPID PROFILEon 10-08-2021 CHOL-HDL RATIO NORM SEE BELOW Normal [facility] Comment on above: Result Comment: 3.3 - 4.4 LOW RISK 4.4 - 7.1 AVERAGE RISK 7.1 - 11.0 MODERATE RISK >11.0 HIGH RISK Performed By: #### L IPID, TSH, CMP ####[facility] [address] [address]Dr. Wilbert Gomez Cholesterol [Mass/Vol] 205 mg/dL Critically high <=200 [facility] Comment on above: Performed By: #### L IPID, TSH, CMP ####[facility] [address] [address]Dr. Wilbert Gomez Cholesterol in HDL [Mass/Vol] 81 mg/dL Critically high 40-60 [facility] Comment on above: Performed By: #### L IPID, TSH, CMP ####[facility] [address] [id number]. Wilbert Gomez Cholesterol in LDL [Mass/Vol] 108.0 mg/dL Normal [facility] Comment on above: Performed By: #### L IPID, TSH, CMP ####[facility] [address] [id number]. Wilbert Gomez Cholesterol.total/Ch olesterol in HDL [Mass ratio] 2.5 {ratio} Normal [facility] Comment on above: Performed By: #### L IPID, TSH, CMP ####[facility] [address] [id number]. Wilbert Gomez HDL NORMAL > or = 60 mg/dl - LO W CARDIOVASCULAR RISK <40 mg/dl - HIGH CARDIOVASCULAR RISK Normal [facility] Comment on above: Performed By: #### L IPID, TSH, CMP ####[facility] [address] [place] [id number]. Wilbert Gomez LDL CALC NORMAL SEE BELOW Normal [facility] Comment on above: Result Comment: <100 mg/dl OPTIMAL 100 - 129 mg/dl NEAR OR ABOVE OPTIMAL 130 - 159 mg/dl BORDERLINE HIGH 160 - 189 mg/dl HIGH >190 mg/dl VERY HIGH Performed By: #### L IPID, TSH, CMP ####[facility] [address] [address]Dr. Wilbert Gomez Triglyceride [Mass/Vol] 80 mg/dL Normal <=150 [facility] Comment on above: Performed By: #### L IPID, TSH, CMP ####[facility] [address] [address]Dr. Wilbert Gomez VLDL CALC 16.0 mg/dL Normal [facility] Comment on above: Performed By: #### L IPID, TSH, CMP ####[facility] [address] [address]Dr. Wilbert Gomez PROF 14(COMP METB)on 022 Albumin [Mass/Vol] 3.6 g/dL Normal 3.4-5.[address] [facility] Comment on above: Performed By: #### L IPID, TSH, CMP ####[facility] [address] [address]Dr. Wilbert Gomez Albumin/Globulin [Mass ratio] 1.0 {ratio} Normal [facility] Comment on above: Performed By: #### L IPID, TSH, CMP ####[facility] [address] [address]Dr. Wilbert Gomez ALP [Catalytic activity/Vol] 86 U/L Normal 46-116 [facility] Comment on above: Performed By: #### L IPID, TSH, CMP ####[facility] [address] [address]Dr. Wilbert Gomez ALT [Catalytic activity/Vol] 27 U/L Normal 14-59 [facility] Comment on above: Performed By: #### L IPID, TSH, CMP ####[facility] [address] [place] [id number]. Wilbert Gomez Anion gap [Moles/Vol] 12.1 mmol/L Normal [facility] Comment on above: Performed By: #### L IPID, TSH, CMP ####[facility] [address] [address]Dr. Wilbert Gomez AST [Catalytic activity/Vol] 23 U/L Normal 15-37 [facility] Comment on above: Performed By: #### L IPID, TSH, CMP ####[facility] [address] [address]Dr. Wilbert Gomez Bilirubin [Mass/Vol] 0.6 mg/dL Normal 0.2-1.0 [facility] Comment on above: Performed By: #### L IPID, TSH, CMP ####[facility] [address] [address]Dr. Wilbert Gomez Calcium [Mass/Vol] 8.7 mg/dL Normal 8.5-10.1 [facility] Comment on above: Performed By: #### L IPID, TSH, CMP ####[facility] [address] [address]Dr. Wilbert Gomez Chloride [Moles/Vol] 104 mmol/L Normal 98-107 [facility] Comment on above: Performed By: #### L IPID, TSH, CMP ####[facility] [address] [address]Dr. Wilbert Gomez CO2 [Moles/Vol] 26.8 mmol/L Normal 21.0-32.0 [facility] Comment on above: Performed By: #### L IPID, TSH, CMP ####[facility] [address] [address]Dr. Wilbert Gomez Creatinine [Mass/Vol] 0.85 mg/dL Normal 0.55-1.02 [facility] Comment on above: Performed By: #### L IPID, TSH, CMP ####[facility] [address] [address]Dr. Wilbert Jason EGFR-AF CYMRO >60 Normal >=60 [facility] Comment on above: Performed By: #### L IPID, TSH, CMP ####[facility] [address] [address]Dr. Wilbert Gomez EGFR-NON AF CYMRO >60 Normal >=60 [facility] Comment on above: Performed By: #### L IPID, TSH, CMP ####[facility] [address] [address]Dr. Wilbert Gomez Globulin (S) [Mass/Vol] 3.7 g/dL Normal [facility] Comment on above: Performed By: #### L IPID, TSH, CMP ####[facility] [address] [place], [place] [address]Dr. Wilbert Gomez Glucose [Mass/Vol] 92 mg/dL Normal 74-[address] [facility] Comment on above: Performed By: #### L IPID, TSH, CMP ####[facility] [address] [place], [place] [address]Dr. Wilbert Gomez Potassium [Moles/Vol] 3.9 mmol/L Normal 3.5-5.1 [facility] Comment on above: Performed By: #### L IPID, TSH, CMP ####[facility] [address] [place], [place] [address]Dr. Wilbert Gomez Protein [Mass/Vol] 7.3 g/dL Normal 6.4-8.[address] [facility] Comment on above: Performed By: #### L IPID, TSH, CMP ####[facility] [address] [place], [place] [address]Dr. Wilbert Gomez Sodium [Moles/Vol] 139 mmol/L Normal 136-[address] [facility] Comment on above: Performed By: #### L IPID, TSH, CMP ####[facility] [address] [place], [place] [address]Dr. Wilbert Gomez Urea nitrogen [Mass/Vol] 10.0 mg/dL Normal 7.0-18.0 [facility] Comment on above: Performed By: #### L IPID, TSH, CMP ####[facility] [address] [place], [place] [address]Dr. Wilbert Gomez Urea nitrogen/Creatinine [Mass ratio] 11.8 mg/mg Normal [facility] Comment on above: Performed By: #### L IPID, TSH, CMP ####[facility] [address] [place], [place] [address]VzDr. Wilbert Gomez TSHon 10-08-2021 TSH 0.731 uIU/mL Normal 0.358-3.740 [facility] Comment on above: Performed By: #### L IPID, TSH, CMP ####[facility] [address] [place], [place] [address]KyHong Gomez ALBUMINon 07-30-2021 Albumin [Mass/Vol] 3.8 g/dL Normal 3.4-5.0 [facility] Comment on above: Performed By: #### C JENELLE, ALT, CRP, ALB #### [facility] [address] [place] [address] Dr. Wilbert Gomez CBC AUTO DIFFon 07-30-2021 BASO # 0.0 103/ul Normal 0.0-0.1 [facility] Comment on above: Performed By: #### C BC #### [facility] [address] [place] [address] Dr. Wilbert Gomez Basophils/100 WBC (Bld) 0.6 % Normal 0.2-2.0 [facility] Comment on above: Performed By: #### C BC #### [facility] [address] [place] [address] Dr. Wilbert Gomez EO # 0.2 103/ul Normal 0.0-0.7 [facility] Comment on above: Performed By: #### C BC #### [facility] [address] [place] [address] Dr. Wilbert Gomez Eosinophils/100 WBC (Bld) 4.1 % Normal 0.9-7.0 [facility] Comment on above: Performed By: #### C BC #### [facility] [address] [place] [address] Dr. Wilbert Gomez Erythrocyte distribution width (RBC) [Ratio] 14.0 % Normal 11.0-15.0 [facility] Comment on above: Performed By: #### C BC #### [facility] [address] [place] [address] Dr. Wilbert Gomez Hematocrit (Bld) [Volume fraction] 37.4 % Normal 36.0-48.0 [facility] Comment on above: Performed By: #### C BC #### [facility] [address] [place] [address] Dr. Wilbert Gomez Hemoglobin (Bld) [Mass/Vol] 12.2 g/dL Normal 12.0-16.0 [facility] Comment on above: Performed By: #### C BC #### [facility] [address] [place] [address] Dr. Wilbert Gomez IG # 0.01 10e3/ul Normal 0.00-0.03 [facility] Comment on above: Performed By: #### C BC #### [facility] [address] [place] [address] Dr. Wilbert Gomez IG % 0.2 % Normal 0.0-0.5 [facility] Comment on above: Performed By: #### C BC #### [facility] [address] [place] [address] Dr. Wilbert Gomez LYMPH # 1.6 103/ul Normal 1.2-3.8 [facility] Comment on above: Performed By: #### C BC #### [facility] [address] [place] [address] Dr. Wilbert Gomez Lymphocytes/100 WBC (Bld) 33.4 % Normal 20.5-60.0 [facility] Comment on above: Performed By: #### C BC #### [facility] [address] [place] [address] Dr. Wilbert Gomez MANUAL DIFF REQ NO Normal [facility] Comment on above: Performed By: #### C BC #### [facility] [address] [place] [address] Dr. Wilbert Gomez MCH (RBC) [Entitic mass] 31.9 pg Normal 26.7-34.0 [facility] Comment on above: Performed By: #### C BC #### [facility] [address] [address] [address] Wilbert Gomez MCHC (RBC) [Mass/Vol] 32.6 g/dL Normal 29.9-35.2 [facility] Comment on above: Performed By: #### C BC #### [facility] [address] [place] [address] Dr. Wilbert Gomez MCV (RBC) [Entitic vol] 97.7 fL Normal 81.0-99.0 [facility] Comment on above: Performed By: #### C BC #### [facility] [address] [place] [address] Dr. Wilbert Gomez MONO # 0.5 103/ul Normal 0.3-0.8 [facility] Comment on above: Performed By: #### C BC #### [facility] [address] [place] [address] Dr. Wilbert Gomez Monocytes/100 WBC (Bld) 11.0 % Normal 1.7-12.0 [facility] Comment on above: Performed By: #### C BC #### [facility] [address] [place] [address] Dr. Wilbert Gomez NEUT # 2.4 103/ul Normal 1.4-6.5 [facility] Comment on above: Performed By: #### C BC #### [facility] [address] [place] [address] Dr. Wilbert Gomez Neutrophils/100 WBC (Bld) 50.7 % Normal 43.0-75.0 [facility] Comment on above: Performed By: #### C BC #### [facility] [address] [place] [address] Dr. Wilbert Gomez Platelet mean volume (Bld) [Entitic vol] 8.8 fL Critically low 9.5-13.5 [facility] Comment on above: Performed By: #### C BC #### [facility] [address] [place] [address] Dr. Wilbert Gomez PLT 228 103/ul Normal 150-450 [facility] Comment on above: Performed By: #### C BC #### [facility] [address] [address] [address] Wilbert Gomez RBC 3.83 106/ul Critically low 4.20-5.40 [facility] Comment on above: Performed By: #### C BC #### [facility] [address] [address] [address] Wilbert Gomez WBC 4.8 103/ul Normal 4.0-11.0 [facility] Comment on above: Performed By: #### C BC #### [facility] [address] [place] [address] Dr. Wilbert Gomez CREATININEon 07-30-2021 Creatinine [Mass/Vol] 0.87 mg/dL Normal 0.55-1.02 [facility] Comment on above: Performed By: #### C JENELLE, ALT, CRP, ALB #### [facility] [address] [place] [address] Dr. Wilbert Gomez EGFR-AF CYMRO >60 Normal >=60 [facility] Comment on above: Performed By: #### C JENELLE, ALT, CRP, ALB #### [facility] [address] [place] [address] Dr. Wilbert Gomez EGFR-NON AF CYMRO >60 Normal >=60 [facility] Comment on above: Performed By: #### C JENELLE, ALT, CRP, ALB #### [facility] [address] [place] [address] Dr. Wilbert Gomez CRPon 07-30-2021 CRP 1.5 mg/dL Critically high <=1.0 [facility] Comment on above: Performed By: #### C JENELLE, ALT, CRP, ALB #### [facility] [address] [place] [address] Dr. Wilbert Gomez SED RATE [facility] 2021 SED RATE 14 mm/hr Normal <=30 [facility] Comment on above: Performed By: #### S EDR #### [facility] [address] [place] [address] Dr. Wilbert Gomez SGPTon 07-30-2021 ALT [Catalytic activity/Vol] 38 U/L Normal 14-59 [facility] Comment on above: Performed By: #### C JENELLE, ALT, CRP, ALB #### [facility] [address] [address] [address] Wilbert Gomez MG MAMM SCREEN 3D MICHELLE CADon 07-16-2021 MG MAMM SCREEN 3D MICHELLE CAD Patient: CIELO RAY Exam Date: 07/16/2021 : 1965 Gender:F Ordering : [facility] Admission #: [id number] Family : Order #: [id number] CLICK HERE TO VIEW EXAM RADIOLOGY REPORT [...] breast cancer at age 55. LOCATION: [facility] BREAST COMPOSITION: Heterogeneously dense,which may obscure [...] M.D. on 07/17/2021 at 09:49 Normal [facility] Vital Signs Date Time Vital Sign Value Performing Clinician Matias bell 02-23-2024 15:43-0500 Body height 167.6 cm Karolina Boothe DPM FACFAS Work Phone: [facility] 02-23-2024 15:43-0500 Body mass index (BMI) [Ratio] 29.38 kg/m2 Karolina Boothe DPM FACFAS Work Phone: [facility] 02-23-2024 15:43-0500 Body weight 82.56 kg Karolina Dolce DPM FACFAS Work Phone: [facility] 02-23-2024 15:43-0500 Diastolic blood pressure 76 mm[Hg] Karolina Dolce DPM FACFAS Work Phone: [facility] 02-23-2024 15:43-0500 Heart rate 85 /min Karolina Dolce DPM FACFAS Work Phone: [facility] 02-23-2024 15:43-0500 Systolic blood pressure 128 mm[Hg] Karolina Dolce DPM FACFAS Work Phone: [facility] 01-26-2024 16:45-0500 Body height 167.6 cm Karolina Dolce DPM FACFAS Work Phone: [facility] 01-26-2024 16:45-0500 Body mass index (BMI) [Ratio] 29.38 kg/m2 Karolina Dolce DPM FACFAS Work Phone: [facility] 01-26-2024 16:45-0500 Body weight 82.56 kg Karolina Dolce DPM FACFAS Work Phone: [facility] 01-26-2024 16:45-0500 Diastolic blood pressure 75 mm[Hg] Karolina Dolce DPM FACFAS Work Phone: [facility] 01-26-2024 16:45-0500 Heart rate 82 /min Karolina Dolce DPM FACFAS Work Phone: [facility] 01-26-2024 16:45-0500 Systolic blood pressure 130 mm[Hg] Karolina Dolce DPM FACFAS Work Phone: [facility] 10-27-2023 15:33-0400 Body height 167.6 cm Karolina Dolce DPM FACFAS Work Phone: [facility] 10-27-2023 15:33-0400 Body mass index (BMI) [Ratio] 29.38 kg/m2 Karolina Dolce DPM FACFAS Work Phone: [facility] 10-27-2023 15:33-0400 Body weight 82.56 kg Karolina Dolce DPM FACFAS Work Phone: [facility] 10-27-2023 15:33-0400 Diastolic blood pressure 74 mm[Hg] Karolina Dolce DPM FACFAS Work Phone: [facility] 10-27-2023 15:33-0400 Heart rate 80 /min Karolina Dolce DPM FACFAS Work Phone: [facility] 10-27-2023 15:33-0400 Systolic blood pressure 132 mm[Hg] Karolina Dolce DPM FACFAS Work Phone: [facility] Healthcare Encounters Encounter Date Encounter Type Care Provider Facility Start: 02-23-2024 End: 02-23-2024 Office outpatient visit 25 minutes Karolina R Dolce DPM FACFAS Work Phone: [facility] NMA POD Comment on above: [...] 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) ([facility]) Start: 10-27-2023 End: 10-27-2023 ambulatory KAROLINA R DOLCE Not Available Start: 10-27-2023 End: 10-27-2023 Bamboo flowsheet Karolina R Dolce DPM FACFAS Work Phone: [facility] Start: 10-27-2023 End: 10-27-2023 Bamboo flowsheet Karolina R Dolce DPM FACFAS Work Phone: [facility] Start: 09-14-2023 End: 09-17-2023 Pre-admission assessment Karolina R Dolce [facility] Start: 09-13-2023 End: 09-13-2023 ambulatory KAROLINA R DOLCE Not Available Start: 08-25-2023 End: 08-25-2023 ambulatory KAROLINA R DOLCE Not Available Start: 07-26-2023 End: 07-26-2023 ambulatory KAROLINA R DOLCE Not Available Start: 07-05-2023 End: 07-05-2023 ambulatory KAROLINA R DOLCE Not Available Start: 06-22-2022 End: 06-22-2022 ambulatory Esdras Bonilla Facility:[facility] Start: 06-02-2022 ambulatory TERESA DE Facility: [...] medical examination without abnormal findings TERESA DE [facility] Start: 10-08-2021 End: 10-09-2021 ambulatory TERESA [...] EST Office Visit [facility] [address] [place] [phone] Karolina Boothe R, DPM FACFAS [address] [place] [address] Arrived [facility] Comment on above: Arrived Start: 01-26-2024 End: 01-26-2024 Patient encounter procedure 01/26/2024 4:50 PM EST Office Visit [facility] [address] [place] [phone] Karolina Boothe R, DPM FACFAS [address] [place] [address] Arrived [facility] Comment on above: Arrived Start: 10-27-2023 End: 10-27-2023 Patient encounter procedure 10/27/2023 3:30 PM EDT Office Visit [facility] [address] [place] [phone] Karolina Boothe, DPM FACFAS [address] [place] [address] Arrived [facility] Comment on above: Arrived Start: 10-16-2023 Influenza vaccination Influenza Vacc ine (#1) [facility] Start: 2005 Screening for malign ant neoplasm of breast Mammogram [facility] Start: 11-13-1995 Screening for malign ant neoplasm of cervix [facility] Start: 1986 Screening for malign ant neoplasm of cervix Pap Smear [facility] Start: 1965 Screening for malign ant neoplasm of colon [facility] Payers Date Payer Category Payer [facility] BCBS [id number] 2023 Unknown BCBS BCBS xxxxxx [id number] 2023-Present [phone] [address] [place] [address] [id number] 2023 Unknown [id number] 2022 Self-pay 1965 Unknown [id number] 2.16.840.1.834201.3.57 9.2.593 1965 Unknown [id number] 2.16.840.1.178304.3.57 9.2.593 1965 Unknown [id number] 2.16.840.1.815997.3.57 9.2.593 1965 Unknown [id number] 2.16.840.1.602293.3.57 9.2.593 1965 Unknown [id number] 2.16.840.1.958103.3.57 9.2.593 1965 Unknown [id number] 2.16.840.1.586439.3.57 9.2.593 1965 Unknown [id number] 2.16.840.1.873987.3.57 9.2.593 1965 Unknown [id number] 2.16.840.1.678907.3.57 9.2.593 1965 Unknown [id number] 2.16.840.1.214260.3.57 9.2.593 1965 Unknown [id number] 2.16.840.1.145562.3.57 9.2.593 1965 Unknown [id number] 2.16.840.1.638087.3.57 9.2.125 1965 Unknown [id number] 2.16.840.1.382479.3.57 9.2.125 1965 Unknown [id number] 2.16.840.1.961232.3.57 9.2.125 1965 Unknown [id number] 2.16.840.1.030497.3.57 9.2.1259 1965 Unknown [id number] 2.16.840.1.551863.3.57 9.2.1259 1965 Unknown [id number] 2.16.840.1.665497.3.57 9.2.125 1965 Unknown [id number] 2.16.840.1.143536.3.57 9.2.1259 1965 Unknown [id number] 2.16.840.1.628532.3.57 9.2.1259 1959 Unknown [id number] Unknown [id number] 2.16.840.1.238455.3.57 9.2.531 Social History Date Type Detail Facility Tobacco smoking status Harman french [facility] Start: 09-13-2023 End: 02-23-2024 Sex Assigned At Female Alejandro Vergara [facility] Start: 07-05-2023 Tobacco smoking stat [facility] Never smoked tobacco [facility] Work Phone: Start: 07-05-2023 Tobacco use and exposure Smokeless tobacco non-user [facility] Start: 09-13-2023 End: 02-23-2024 Alcoholic beverage intake Defer [facility] Start: 09-13-2023 End: 02-23-2024 History of Social function [facility] Start: 1965 Sex assigned [...] < 3 seconds Digits 1-5 bilateral NEURO: [place] Scott 5.07 monofilament was intact B/L. Vibratory [...] < 3 seconds Digits 1-5 bilateral NEURO: [place] Scott 5.07 monofilament was intact B/L. Vibratory [...] shoes. 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) (CMS/HCC) documented in this encounter [facility] Evaluation note Note Date & Type Note Facility Evaluation note Diagnosis Metatarsal deformity, right- Primary [place] neuroma, right Right foot pain Pain in soft tissues of limb documented in this encounter [facility] Evaluation note Note Date & Type Note Facility Evaluation note Diagnosis [place] neuroma, right- Primary Metatarsal deformity, right documented in this encounter [facility] Hospital Discharge instructions Note Date & Type Note Facility Hospital Discharge instructions No data available for this section [facility] Progress note Note Date & Type Note Facility Progress note No data available for this section [facility] Summary Purpose Family History No Family [...] DATE CREATED AUTHOR AUTHOR'S ORGANIZ ATION 06/26/2022 [facility] DATE CREATED AUTHOR AUTHOR'S ORGANIZ ATION 02/28/2024 [facility] EPIC Patient Care team informatio n (unrecognized section and content) Director Of Bands Relationship Specialty Start Date End Date Paul Villatoro MD [address] [place] [address] PCP - General Family Medicine 09/13/23 Teresa De MD [address] [id number] Referring Physician Family Medicine 07/05/23 Director Of Bands Relationship Specialty Start Date End Date Paul Villatoro MD [address] [place] [address] PCP - General Family Medicine 09/13/23 Teresa De MD [address] [place] [address] Referring Physician Family Medicine 07/05/23 Director Of Bands Relationship Specialty Start Date End Date Paul Villatoro MD [address] [place] [address] PCP - General Family Medicine 09/13/23 Teresa De MD [address] [place] [address] Referring Physician Family Medicine 07/05/23 Reason for [...] BE BASED ON THE PRIMARY CLINICAL RECORDS. [facility] [employer] [facility]. provides no warranty or guarantee of the accuracy or completeness of information in this document.
[2024-03-10 13:17] LABS: Alanine Aminotransferase 53 U/L (14-59); Albumin Globulin Ratio 0.8; Albumin Level 3.6 g/dL (3.4-5.0); Alkaline Phosphatase 108 U/L (46-116); Anion Gap 12.7; Aspartate Amino Transferase 35 U/L (15-37); BUN Creatinine Ratio 14.8; Carbon Dioxide 27.4 mmol/L (21.0-32.0); Chloride 103 mmol/L (98-107); Chol HDL Ratio 2.4; Cholesterol 238 mg/dL (<=200); Estimated GFR (African America >60 (>=60 mL/min/1.73m^2); Estimated GFR (Non-African Ame >60 (>=60 mL/min/1.73m^2); Globulin 4.3 g/dL; Glucose 99 mg/dL (74-106); HDL Cholesterol 98 mg/dL (40-60); Potassium 4.1 mmol/L (3.5-5.1); Sodium 139 mmol/L (136-145); Thyroid Stimulating Hormone 0.587 uIU/mL (0.358-3.740); Total Protein 7.9 g/dL (6.4-8.2); Triglycerides 52 mg/dL (<=150); VLDL CHOLESTEROL 10.4 mg/dL
[2024-03-10 17:12] LABS: Estimated Average Glucose 105 mg/dL; Glycohemoglobin A1C 5.3 % (4.5-6.2)
[2024-03-12 13:07] LABS: Insulin 27.4 uIU/mL (2.6-24.9)
== END 2024-03-10 12:05 | disposition home or self-care (01) ==
PROVIDERS: PCP Nurse Practitioner Family; Visit Provider Nurse Practitioner Family
DX: Z00.00 Encounter for general adult medical examination without abnormal findings (principal); M05.79 Rheumatoid arthritis with rheumatoid factor of multiple sites without organ or systems involvement; Z79.899 Other long term (current) drug therapy
CPT/HCPCS: 36415; 80053; 80061; 82306; 83036; 83525; 83540; 84436; 84443; 84481; 85007; 85027; 85652

== ENCOUNTER 2024-03-30 13:17 | Outpatient (OUT) | payer BC, SELFPAY ==
--- OUTSIDE RECORDS SUMMARY | 2024-03-30 13:41 | XMS_ITS | CCD ---
Author Organization [facility] Care Team Providers Care Application Analyst Name Role Phone TERESA DE Attending Unavailable [...] Unavailable Paul Villatoro MD Primary Care Provider Dolce, Karolina R Attending Unavailable Dolce, Karolina R Admitting Unavailable DOLCE, KAROLINA R Attending Unavailable DOLCE, KAROLINA R Attending Unavailable DOLCE, KAROLINA R Attending Unavailable DOLCE, KAROLINA R Referring Unavailable DOLCE, KAROLINA R Attending Unavailable DOLCE, KAROLINA R Attending Unavailable DOLCE, KAROLINA R Attending Unavailable DOLCE, KAROLINA R Attending Unavailable DOLCE, KAROLINA R Attending Unavailable DOLCE, KAROLINA R Attending Unavailable Medications Current Medications Medication Drug Class(es) Dates Sig (Normalized) Sig (Original) acetaminophen 325 mg / HYDROcodone bitartrate 5 mg oral tablet (1 source) Opioid Agonist Start: 03-14-2024 End: 03-19-2024 take 1 tablet by mouth every six hours for pain HYDROcodone-aceta minophen ([place]) 5-325 MG tablet Indications: Metatarsal deformity, right Take 1 tablet by mouth every 6 (six) hours if needed for severe pain for up to 5 days 20 tablet 03/14/2024 03/19/2024 Active Problems Active Problems Problem Classification Problem Date Documented Da te Episodic/Chronic Conditions associated with dizziness or vertigo (4 sources) Dizziness and giddiness; Translations: [DIZZINESS AND GIDDINESS] Onset: 06-02-2022 Episodic Other acquired deformities (10 sources) Deformity of metatarsal; Translations: [Unspecified acquired [...] Onset: 07-30-2021 Chronic Other nervous system disorders (9 sources) Mortons neuroma of right foot; Translations: [...] Test Name Value Interpretation Reference Range Facility Surgical Pathology Reporton 03-19-2024 Surgical Pathology Report [address] [id number]- Surgical Pathology Report Collected Date/Time: 03/15/2024 09:30 EST Pathologist: Jason CAI PhD, Wilbert Rangel Received Date/Time: 03/15/2024 13:39 EST Adelaide GARCIA, Karolina Bryson DPM, Karolina Lorenzana 07 Surgical Pathology Report - 03/19/2024 10:53 EST - Auth (Verified) Final Diagnosis NEUROMA, 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 (Electronic Signature) Wilbert Gomez MD PhD 03/19/2024 10:53 Clinical Information Neuroma right 2nd toe Pre-Op Diagnosis: Neuroma right 2nd toe Procedure: Excision interdigital Arciniega neuroma Post-Op Diagnosis: _ Specimen(s) Received Right 2nd toe neuroma Gross Description Received in formalin labeled with patient name, number, and right 2nd toe neuroma is a round fragment of light yellow/sanders/pink fatty rubbery tissue measuring 1.4 x 1.3 x 0.6 cm. Specimen is trisected and entirely submitted in one cassette. (DC) DC:[facility] Microscopic Description Microscopic examination performed unless gross only specified. This report was transcribed using voice recognition technology and might contain unintended computerized well cleaner errors. Normal [facility] Comment on above: Performed By: #### [id number] #### [facility] [address] [place] [address] GERONIMO Antinuclear Antibodieson 06-22-2022 Antinuclear Abs, IFA Negative Normal . [facility] Comment on above: Result Comment: Nega tive <1:80 Borderline 1:80 Positive >1:80 ICAP nomenclature: AC-0 For more information about Hep-2 cell patterns use ANApatterns.org, the official website for the International Consensus on Antinuclear Antibody (GERONIMO) Patterns (ICAP). Performed at: [facility] [id number] Administrative Support Assistant: Charlie Arevalo PhD, Phone: [phone] Performed By: #### A DNA, C4, GERONIMO, CH50, C3, LOZOYA #### [facility] , Anti-Lozoya Antibodieson Anti-Lozoya Antibodies <0.2 Normal 0.0-0.9 [facility] Comment on above: Performed By: #### A DNA, C4, GERONIMO, CH50, C3, LOZOYA #### [facility] , Anti-dsDNA(DBL)Abon 06-23-19 23 Anti-dsDNA(DBL)Ab 1 Normal 0-9 [facility] Comment on above: Result Comment: Nega tive <5 Equivocal 5 - 9 Positive >9 Performed at: [facility] [id number] Administrative Support Assistant: Charlie Arevalo PhD, Phone: [phone] PERFORMED BY: [facility] [place] [address] PATHOLOGIST DESK REPRESENTATIVE EULALIA OLSEN M.D. Performed By: #### A DNA, C4, GERONIMO, CH50, C3, LOZOYA #### [facility] , C-Reactive Proteinon 023 C-Reactive Protein 1.1 mg/dL High 0.0-0.5 [facility] Comment on above: Result Comment: PERF ORMED BY: [place] [address] [place] [address] PATHOLOGIST DESK REPRESENTATIVE EULALIA OLSEN M.D. Performed By: #### A DNA, C4, GERONIMO, CH50, C3, LOZOYA #### [facility] , Complement C3on 06-22-2022 Complement C3 147 mg/dL Normal 82-167 [facility] Comment on above: Result Comment: Perf ormed at: [facility] [id number] Administrative Support Assistant: Charlie Arevalo PhD, Phone: [phone] Performed By: #### A DNA, C4, GERONIMO, CH50, C3, LOZOYA #### [facility] , Complement C4on 06-22-2022 Complement C4 33 mg/dL Normal 12-38 [facility] Comment on above: Performed By: #### A DNA, C4, GERONIMO, CH50, C3, LOZOYA #### [facility] , Complement Total (CH50)on Complement Total (CH50) 55 Normal >41 [facility] Comment on above: Result Comment: Age [...] determine out of range values. Performed at: [facility] [id number] Administrative Support Assistant: Charlie Arevalo PhD, Phone: [phone] PERFORMED BY: [facility] [address] [place] [address] PATHOLOGIST DESK REPRESENTATIVE EULALIA OLSEN M.D. Performed By: #### A DNA, C4, GERONIMO, CH50, C3, LOZOYA #### [facility] , Complete Blood Count Auto Di ffon 06-22-2022 Basophils (Bld) [#/Vol] 0.1 10*3/uL Normal 0.0-0.2 [facility] Comment on above: Performed By: #### H BCAB, HBSAG, HCV RX PCR, HBSAB #### [facility] , #### ADDONUAPLUS, ESR, CBC, CMP, CRP #### [address] Basophils/100 WBC (Bld) 0.7 % Normal . [facility] Comment on above: Performed By: #### H BCAB, HBSAG, HCV RX PCR, HBSAB #### [facility] , #### ADDONUAPLUS, ESR, CBC, CMP, CRP #### [address] Eosinophils (Bld) [#/Vol] 0.3 10*3/uL Normal 0.0-0.45 [facility] Comment on above: Performed By: #### H BCAB, HBSAG, HCV RX PCR, HBSAB #### [facility] , #### ADDONUAPLUS, ESR, CBC, CMP, CRP #### [address] Eosinophils/100 WBC (Bld) 3.8 % Normal . [facility] Comment on above: Performed By: #### H BCAB, HBSAG, HCV RX PCR, HBSAB #### [facility] , #### ADDONUAPLUS, ESR, CBC, CMP, CRP #### [address] Erythrocyte distribution width (RBC) [Ratio] 13.7 % Normal 11.9-15.3 [facility] Comment on above: Performed By: #### H BCAB, HBSAG, HCV RX PCR, HBSAB #### [facility] , #### ADDONUAPLUS, ESR, CBC, CMP, CRP #### [address] Hematocrit (Bld) [Volume fraction] 39.4 % Normal 34.0-46.4 [facility] Comment on above: Performed By: #### H BCAB, HBSAG, HCV RX PCR, HBSAB #### [facility] , #### ADDONUAPLUS, ESR, CBC, CMP, CRP #### [address] Hemoglobin (Bld) [Mass/Vol] 13.0 g/dL Normal 11.8-15.4 [facility] Comment on above: Performed By: #### H BCAB, HBSAG, HCV RX PCR, HBSAB #### [facility] , #### ADDONUAPLUS, ESR, CBC, CMP, CRP #### [address] Lymphocytes (Bld) [#/Vol] 2.5 10*3/uL Normal 1.00-4.8 [facility] Comment on above: Performed By: #### H BCAB, HBSAG, HCV RX PCR, HBSAB #### [facility] , #### ADDONUAPLUS, ESR, CBC, CMP, CRP #### [address] Lymphocytes/100 WBC (Bld) 35.4 % Normal . [facility] Comment on above: Performed By: #### H BCAB, HBSAG, HCV RX PCR, HBSAB #### [facility] , #### ADDONUAPLUS, ESR, CBC, CMP, CRP #### [address] MCH (RBC) [Entitic mass] 31.3 pg Normal 24.7-34.3 [facility] Comment on above: Performed By: #### H BCAB, HBSAG, HCV RX PCR, HBSAB #### [facility] , #### ADDONUAPLUS, ESR, CBC, CMP, CRP #### [address] MCV (RBC) [Entitic vol] 94.7 fL Normal 80-100 [facility] Comment on above: Performed By: #### H BCAB, HBSAG, HCV RX PCR, HBSAB #### [facility] , #### ADDONUAPLUS, ESR, CBC, CMP, CRP #### [address] Mean Corpuscular HGB Conc 33.1 g/dL Normal 32.0-35.0 [facility] Comment on above: Performed By: #### H BCAB, HBSAG, HCV RX PCR, HBSAB #### [facility] , #### ADDONUAPLUS, ESR, CBC, CMP, CRP #### [address] Monocytes (Bld) [#/Vol] 0.3 10*3/uL Normal 0.0-0.8 [facility] Comment on above: Performed By: #### H BCAB, HBSAG, HCV RX PCR, HBSAB #### [facility] , #### ADDONUAPLUS, ESR, CBC, CMP, CRP #### [address] Monocytes/100 WBC (Bld) 4.7 % Normal . [facility] Comment on above: Performed By: #### H BCAB, HBSAG, HCV RX PCR, HBSAB #### [facility] , #### ADDONUAPLUS, ESR, CBC, CMP, CRP #### [address] Neutrophils (Bld) [#/Vol] 3.9 10*3/uL Normal 1.8-7.7 [facility] Comment on above: Performed By: #### H BCAB, HBSAG, HCV RX PCR, HBSAB #### [facility] , #### ADDONUAPLUS, ESR, CBC, CMP, CRP #### [address] Neutrophils/100 WBC (Bld) 55.4 % Normal . [facility] Comment on above: Performed By: #### H BCAB, HBSAG, HCV RX PCR, HBSAB #### [facility] , #### ADDONUAPLUS, ESR, CBC, CMP, CRP #### [address] NRBC% 0.0 /100{WBC} Normal 0-0.5 [facility] Comment on above: Performed By: #### H BCAB, HBSAG, HCV RX PCR, HBSAB #### [facility] , #### ADDONUAPLUS, ESR, CBC, CMP, CRP #### [address] Platelet mean volume (Bld) [Entitic vol] 7.5 fL Normal 6.3-10.7 [facility] Comment on above: Performed By: #### H BCAB, HBSAG, HCV RX PCR, HBSAB #### [facility] , #### ADDONUAPLUS, ESR, CBC, CMP, CRP #### [address] Platelets (Bld) [#/Vol] 299 10*3/uL Normal 150-450 [facility] Comment on above: Performed By: #### H BCAB, HBSAG, HCV RX PCR, HBSAB #### [facility] , #### ADDONUAPLUS, ESR, CBC, CMP, CRP #### [address] RBC (Bld) [#/Vol] 4.17 10*6/uL Normal 3.60-5.00 [facility] Comment on above: Performed By: #### H BCAB, HBSAG, HCV RX PCR, HBSAB #### [facility] , #### ADDONUAPLUS, ESR, CBC, CMP, CRP #### [facility] [address] WBC (Bld) [#/Vol] 7.1 10*3/uL Normal 3.8-11.6 [facility] Comment on above: Performed By: #### H BCAB, HBSAG, HCV RX PCR, HBSAB #### [facility] , #### ADDONUAPLUS, ESR, CBC, CMP, CRP #### [facility] [address] Comprehensive Metabolic Pane darshan 06-22-2022 Albumin [Mass/Vol] 4.4 g/dL Normal 3.5-5.7 [facility] Comment on above: Performed By: #### A DNA, C4, GERONIMO, CH50, C3, LOZOYA #### [facility] , Albumin/Globulin [Mass ratio] 1.6 {ratio} Normal [facility] Comment on above: Performed By: #### A DNA, C4, GERONIMO, CH50, C3, LOZOYA #### [facility] , ALP [Catalytic activity/Vol] 78 U/L Normal 34-104 [facility] Comment on above: Performed By: #### A DNA, C4, GERONIMO, CH50, C3, LOZOYA #### [facility] , ALT [Catalytic activity/Vol] 21 U/L Normal 7-52 [facility] Comment on above: Performed By: #### A DNA, C4, GERONIMO, CH50, C3, LOZOYA #### [facility] , Anion gap [Moles/Vol] 12.9 mmol/L Normal 6.0-15.0 [facility] Comment on above: Performed By: #### A DNA, C4, GERONIMO, CH50, C3, LOZOYA #### [facility] , AST [Catalytic activity/Vol] 24 U/L Normal 13-39 [facility] Comment on above: Performed By: #### A DNA, C4, GERONIMO, CH50, C3, LOZOYA #### [facility] , Bilirubin [Mass/Vol] 0.9 mg/dL Normal 0.3-1.0 [facility] Comment on above: Performed By: #### A DNA, C4, GERONIMO, CH50, C3, LOZOYA #### [facility] , Calcium [Mass/Vol] 9.0 mg/dL Normal 8.6-10.3 [facility] Comment on above: Performed By: #### A DNA, C4, GERONIMO, CH50, C3, LOZOYA #### [facility] , Chloride [Moles/Vol] 106 mmol/L Normal 98-107 [facility] Comment on above: Performed By: #### A DNA, C4, GERONIMO, CH50, C3, LOZOYA #### [facility] , CO2 [Moles/Vol] 25.2 mmol/L Normal 21.0-31.0 [facility] Comment on above: Performed By: #### A DNA, C4, GERONIMO, CH50, C3, LOZOYA #### [facility] , Creatinine [Mass/Vol] 0.79 mg/dL Normal 0.60-1.20 [facility] Comment on above: Performed By: #### A DNA, C4, GERONIMO, CH50, C3, LOZOYA #### [facility] , GFR/1.73 sq M.predicted MDRD (S/P/Bld) [Vol rate/Area] mL/min/{1.73_m2} [facility] Comment on above: Performed By: #### A DNA, C4, GERONIMO, CH50, C3, LOZOYA #### [facility] , Globulin (S) [Mass/Vol] 2.8 g/dL [facility] Comment on above: Performed By: #### A DNA, C4, GERONIMO, CH50, C3, LOZOYA #### [facility] , Glucose [Mass/Vol] 97 mg/dL Normal 70-100 [facility] Comment on above: Result Comment: [place] Glucose Reference Range is dependent on time and content of last meal. Glucose of more than 200 mg/dL in a nonstressed, ambulatory subject supports the diagnosis of Diabetes Mellitus. ADA recommended reference range Performed By: #### A DNA, C4, GERONIMO, CH50, C3, LOZOYA #### [facility] , Potassium [Moles/Vol] 4.1 mmol/L Normal 3.5-5.1 [facility] Comment on above: Performed By: #### A DNA, C4, GERONIMO, CH50, C3, LOZOYA #### [facility] , Protein [Mass/Vol] 7.2 g/dL Normal 6.4-8.9 [facility] Comment on above: Performed By: #### A DNA, C4, GERONIMO, CH50, C3, LOZOYA #### [facility] , Sodium [Moles/Vol] 140 mmol/L Normal 136-145 [facility] Comment on above: Performed By: #### A DNA, C4, GERONIMO, CH50, C3, LOZOYA #### [facility] , Urea nitrogen [Mass/Vol] 12 mg/dL Normal 7-25 [facility] Comment on above: Performed By: #### A DNA, C4, GERONIMO, CH50, C3, LOZOYA #### [facility] , Dipstick and Microscopicon 0 06-22-2022 Appearance (U) Clear Normal Clear [facility] Comment on above: Order Comment: Name Collection Type:: Clean-Voided Midstream Performed By: #### H BCAB, HBSAG, HCV RX PCR, HBSAB #### [facility] , #### ADDONUAPLUS, ESR, CBC, CMP, CRP #### [facility] [address] Bacteria,Urine 1+ High None Seen [facility] Comment on above: Order Comment: Name Collection Type:: Clean-Voided Midstream Performed By: #### H BCAB, HBSAG, HCV RX PCR, HBSAB #### [facility] , #### ADDONUAPLUS, ESR, CBC, CMP, CRP #### [address] Bilirubin,Urine Negative Normal Negative [facility] Comment on above: Order Comment: Name Collection Type:: Clean-Voided Midstream Performed By: #### H BCAB, HBSAG, HCV RX PCR, HBSAB #### [facility] , #### ADDONUAPLUS, ESR, CBC, CMP, CRP #### [address] Color (U) Yellow Normal Yellow [facility] Comment on above: Order Comment: Name Collection Type:: Clean-Voided Midstream Performed By: #### H BCAB, HBSAG, HCV RX PCR, HBSAB #### [facility] , #### ADDONUAPLUS, ESR, CBC, CMP, CRP #### [address] Glucose Ql (U) Normal Normal Normal [facility] Comment on above: Order Comment: Name Collection Type:: Clean-Voided Midstream Performed By: #### H BCAB, HBSAG, HCV RX PCR, HBSAB #### [facility] , #### ADDONUAPLUS, ESR, CBC, CMP, CRP #### [address] Hyaline Casts,Urine 0-8 Normal 0-8 [facility] Comment on above: Order Comment: Name Collection Type:: Clean-Voided Midstream Result Comment: PERF ORMED BY: [place] [address] PATHOLOGIST DESK REPRESENTATIVE EULALIA OLSEN M.D. Performed By: #### H BCAB, HBSAG, HCV RX PCR, HBSAB #### [facility] , #### ADDONUAPLUS, ESR, CBC, CMP, CRP #### [address] Ketones Ql (U) Negative Normal Negative [facility] Comment on above: Order Comment: Name Collection Type:: Clean-Voided Midstream Performed By: #### H BCAB, HBSAG, HCV RX PCR, HBSAB #### [facility] , #### ADDONUAPLUS, ESR, CBC, CMP, CRP #### [facility] [address] [place] [address] Leukocyte esterase Test strip Ql (U) Negative Normal Negative [facility] Comment on above: Order Comment: Name Collection Type:: Clean-Voided Midstream Performed By: #### H BCAB, HBSAG, HCV RX PCR, HBSAB #### [facility] , #### ADDONUAPLUS, ESR, CBC, CMP, CRP #### [address] Nitrite,Urine Negative Normal Negative [facility] Comment on above: Order Comment: Name Collection Type:: Clean-Voided Midstream Performed By: #### H BCAB, HBSAG, HCV RX PCR, HBSAB #### [facility] , #### ADDONUAPLUS, ESR, CBC, CMP, CRP #### [facility] [address] [place] [address] Occult Blood,Urine Negative Normal Negative [facility] Comment on above: Order Comment: Name Collection Type:: Clean-Voided Midstream Performed By: #### H BCAB, HBSAG, HCV RX PCR, HBSAB #### [facility] , #### ADDONUAPLUS, ESR, CBC, CMP, CRP #### [facility] [address] [place] [address] pH (U) 5.5 [pH] Normal 5.0-9.0 [facility] Comment on above: Order Comment: Name Collection Type:: Clean-Voided Midstream Performed By: #### H BCAB, HBSAG, HCV RX PCR, HBSAB #### [facility] , #### ADDONUAPLUS, ESR, CBC, CMP, CRP #### [facility] [address] Protein,Urine Negative Normal Negative [facility] Comment on above: Order Comment: Name Collection Type:: Clean-Voided Midstream Performed By: #### H BCAB, HBSAG, HCV RX PCR, HBSAB #### [facility] , #### ADDONUAPLUS, ESR, CBC, CMP, CRP #### [address] RBC,Urine 3-4 Normal 0-4 [facility] Comment on above: Order Comment: Name Collection Type:: Clean-Voided Midstream Performed By: #### H BCAB, HBSAG, HCV RX PCR, HBSAB #### [facility] , #### ADDONUAPLUS, ESR, CBC, CMP, CRP #### [address] Specificy Brave,Urine 1.021 Normal 1.001-1.030 [facility] Comment on above: Order Comment: Name Collection Type:: Clean-Voided Midstream Performed By: #### H BCAB, HBSAG, HCV RX PCR, HBSAB #### [facility] , #### ADDONUAPLUS, ESR, CBC, CMP, CRP #### [address] Squamous Epithelial Cell,Urine 5-9 High 0-2 [facility] Comment on above: Order Comment: Name Collection Type:: Clean-Voided Midstream Performed By: #### H BCAB, HBSAG, HCV RX PCR, HBSAB #### [facility] , #### ADDONUAPLUS, ESR, CBC, CMP, CRP #### [facility] [address] [place] [address] Urobilinogen,Urine Normal Normal Normal [facility] Comment on above: Order Comment: Name Collection Type:: Clean-Voided Midstream Performed By: #### H BCAB, HBSAG, HCV RX PCR, HBSAB #### [facility] , #### ADDONUAPLUS, ESR, CBC, CMP, CRP #### [facility] [address] WBC,Urine 5-9 High 0-4 [facility] Comment on above: Order Comment: Name Collection Type:: Clean-Voided Midstream Performed By: #### H BCAB, HBSAG, HCV RX PCR, HBSAB #### [facility] , #### ADDONUAPLUS, ESR, CBC, CMP, CRP #### [facility] [address] Erythrocyte Sedimentation Ra raymond 06-22-2022 ESR (Bld) [Velocity] 36 mm/h High 0-29 [facility] Comment on above: Result Comment: PERF ORMED BY: [place] [address] PATHOLOGIST DESK REPRESENTATIVE EULALIA OLSEN M.D. Performed By: #### A DNA, C4, GERONIMO, CH50, C3, LOZOYA #### [facility] , Hep C Ab wRfx to Qnt PCRon 0 06-22-2022 Hepatitis C Virus Antibody Non-Reactive Normal Non Reactive [facility] Comment on above: Performed By: #### A DNA, C4, GERONIMO, CH50, C3, LOZOYA #### [facility] , Interpretation Hepatitis C Normal . [facility] Comment on above: Result Comment: Not infected with HCV unless early or acute infection is suspected (which may be delayed in an immunocompromised individual), or other evidence exists to indicate HCV infection. Performed By: #### A DNA, C4, GERONIMO, CH50, C3, LOZOYA #### [facility] , Hepatitis B Core Antibodyon 06-22-2022 Hepatitis B Core Antibody Negative Normal Negative [facility] Comment on above: Result Comment: Perf ormed at: - [facility] [address] [id number] Administrative Support Assistant: Charlie Arevalo PhD, Phone: [phone] Performed By: #### A DNA, C4, GERONIMO, CH50, C3, LOZOYA #### [facility] , Hepatitis B Surface Antibody on 06-22-2022 Hepatitis B Surface Antibody Non-Reactive Normal . [facility] Comment on above: Result Comment: Non Reactive: Inconsistent with immunity, less than 10 mIU/mL Reactive: Consistent with immunity, greater than 9.9 mIU/mL Performed By: #### A DNA, C4, GERONIMO, CH50, C3, LOZOYA #### [facility] , Hepatitis B Surface Antigeno n 06-22-2022 HBsAg Screen Negative Normal Negative [facility] Comment on above: Result Comment: PERF ORMED BY: [place] [address] PATHOLOGIST DESK REPRESENTATIVE EULALIA OLSEN M.D. Performed By: #### A DNA, C4, GEORNIMO, CH50, C3, LOZOYA #### [facility] , XR chest 2V*on 06-22-2022 XR chest 2V* [place] [address] XRay Report Signed Patient: Cielo Ray MR#: [id number] 66 : 1965 Acct:[id number] Age/Sex: 56 / F ADM Date: 06/22/22 Loc: ICXD Room: Type: [facility] Attending Dr: Esdras Bonilla MD Copies [...] Vitale Jr., D.O.06/22/2022 4:08 PM Dictation Location: [place] [address] Transcribed By: [facility] 06/22/22 1608 Dictated By: Cr Vitale Jr, DO 06/22/22 1608 Signed By: 06/22/22 1608 Normal [facility] XR hand BI 2Von 06-22-2022 XR hand BI 2V [facility] [place] [address] [place] [address] XRay Report Signed Patient: Cielo Ray MR#: [id number] 66 : 1965 Acct:[id number] Age/Sex: 56 / F ADM Date: 06/22/22 Loc: ICXD Room: Type: [facility] Attending Dr: Esdras Bonilla MD Copies [...] Vitale Jr., D.OHong06/22/2022 4:12 PM Dictation Location: [facility] Transcribed By: [facility] 06/22/22 1612 Dictated By: Cr Vitale Jr, DO 06/22/22 1608 Signed By: 06/22/[address] [facility] VC CONSULT FOLLOWUPon 2021 VC CONSULT FOLLOWUP Patient: JEAN PIERRE RAY Exam Date: 02/02/2022 : 1965 Gender:F Ordering : DR KEILA DE LA FUENTE M.D. Admission #: [id number] Family : Order #: [id number] CLICK HERE TO VIEW EXAM RADIOLOGY REPORT [...] Perla M.D. on 02/02/2022 at 15:55 Normal [facility] VC EXT VENOUS LT LIMITEDon 1 04-05-2021 VC EXT VENOUS LT LIMITED Patient: CIELO RAY Exam Date: 02/02/2022 : 1965 Gender:F Ordering : DR KEILA DE LA FUENTE M.D. Admission #: [id number] Family : Order #: [id number] CLICK HERE TO VIEW EXAM RADIOLOGY REPORT [...] Perla M.D. on 02/02/2022 at 15:51 Normal [facility] VC ENDOVENOUS ABL 1ST V LTon 01-26-2022 VC ENDOVENOUS ABL 1ST V LT Patient: CIELO RAY Exam Date: 01/26/2022 : 1965 Gender:F Ordering : DR KEILA DE LA FUENTE M.D. Admission #: [id number] Family : Order #: [id number] CLICK HERE TO VIEW EXAM RADIOLOGY REPORT [...] Informed written consent was obtained by and Damoen neri. Time out procedure was performed. The [...] Fuente MD on 01/26/2022 at 16:08 Normal [facility] ALBUMINon 01-14-2022 Albumin [Mass/Vol] 3.6 g/dL Normal 3.4-5.0 [facility] Comment on above: Performed By: #### C JENELLE, ALB, ALT, CRP ####[facility] [address] [place] [address]Dr. Wilbert Gomez CBC AUTO DIFFon 01-14-2022 BASO # 0.0 103/ul Normal 0.0-0.1 [facility] Comment on above: Performed By: #### C BC #### [facility] [address] [place] [address] Dr. Wilbert Gomez Basophils/100 WBC (Bld) 0.5 % Normal 0.2-2.0 [facility] Comment on above: Performed By: #### C BC #### [facility] [address] [place] [address] Dr. Wilbert Gomez EO # 0.3 103/ul Normal 0.0-0.7 [facility] Comment on above: Performed By: #### C BC #### [facility] [address] [place] [address] Dr. Wilbert Gomez Eosinophils/100 WBC (Bld) 4.2 % Normal 0.9-7.0 [facility] Comment on above: Performed By: #### C BC #### [facility] [address] [place] [address] Dr. Wilbert Gomez Erythrocyte distribution width (RBC) [Ratio] 13.6 % Normal 11.0-15.0 [facility] Comment on above: Performed By: #### C BC #### [facility] [address] [place] [address] Dr. Wilbert Gomez Hematocrit (Bld) [Volume fraction] 36.8 % Normal 36.0-48.0 [facility] [facility] [place] Comment on above: Performed By: #### C BC #### [facility] [address] [place] [address] Dr. Wilbert Gomez Hemoglobin (Bld) [Mass/Vol] 12.1 g/dL Normal 12.0-16.0 [facility] Comment on above: Performed By: #### C BC #### [facility] [address] [place] [address] Dr. Wilbert Gomez IG # 0.02 10e3/ul Normal 0.00-0.03 [facility] Comment on above: Performed By: #### C BC #### [facility] [address] [place] [address] Dr. Wilbert Gomez IG % 0.3 % Normal 0.0-0.5 [facility] Comment on above: Performed By: #### C BC #### [facility] [address] [place] [address] Dr. Wilbert Gomez LYMPH # 2.6 103/ul Normal 1.2-3.8 [facility] Comment on above: Performed By: #### C BC #### [facility] [address] [place] [address] Dr. Wilbert Gomez Lymphocytes/100 WBC (Bld) 35.7 % Normal 20.5-60.0 [facility] Comment on above: Performed By: #### C BC #### [facility] [address] [place] [address] Dr. Wilbert Gomez MANUAL DIFF REQ NO Normal [facility] Comment on above: Performed By: #### C BC #### [facility] [address] [address] [address] Wilbert Gomez MCH (RBC) [Entitic mass] 31.7 pg Normal 26.7-34.0 [facility] Comment on above: Performed By: #### C BC #### [facility] [address] [place] [address] Dr. Wilbert Gomez MCHC (RBC) [Mass/Vol] 32.9 g/dL Normal 29.9-35.2 [facility] Comment on above: Performed By: #### C BC #### [facility] [address] [place] [address] Dr. Wilbert Gomez MCV (RBC) [Entitic vol] 96.3 fL Normal 81.0-99.0 [facility] Comment on above: Performed By: #### C BC #### [facility] [address] [place] [address] Dr. Wilbert Gomez MONO # 0.5 103/ul Normal 0.3-0.8 [facility] Comment on above: Performed By: #### C BC #### [facility] [address] [place] [address] Dr. Wilbert Gomez Monocytes/100 WBC (Bld) 6.2 % Normal 1.7-12.0 [facility] Comment on above: Performed By: #### C BC #### [facility] [address] [place] [address] Dr. Wilbert Gomez NEUT # 3.9 103/ul Normal 1.4-6.5 [facility] Comment on above: Performed By: #### C BC #### [facility] [address] [place] [address] Dr. Wilbert Gomez Neutrophils/100 WBC (Bld) 53.1 % Normal 43.0-75.0 [facility] Comment on above: Performed By: #### C BC #### [facility] [address] [place] [address] Dr. Wilbert Gomez Platelet mean volume (Bld) [Entitic vol] 8.9 fL Critically low 9.5-13.5 [facility] Comment on above: Performed By: #### C BC #### [facility] [address] [address] [address] Wilbert Gomez PLT 275 103/ul Normal 150-450 [facility] Comment on above: Performed By: #### C BC #### [facility] [address] [address] [address] Wilbert Gomez RBC 3.82 106/ul Critically low 4.20-5.40 [facility] Comment on above: Performed By: #### C BC #### [facility] [address] [address] [address] Wilbert Gomez WBC 7.3 103/ul Normal 4.0-11.0 [facility] Comment on above: Performed By: #### C BC #### [facility] [address] [address] [address] Wilbert Gomez CREATININEon 01-14-2022 Creatinine [Mass/Vol] 0.79 mg/dL Normal 0.55-1.02 [facility] Comment on above: Performed By: #### C JENELLE, ALB, ALT, CRP ####[facility] [address] [address]DrHong Gomez EGFR-AF AUSTRALIAN >60 Normal >=60 [facility] Comment on above: Performed By: #### C JENELLE, ALB, ALT, CRP ####[facility] [address] [id number] Gomez EGFR-NON AF AUSTRALIAN >60 Normal >=60 [facility] Comment on above: Performed By: #### C JENELLE, ALB, ALT, CRP ####[facility] [address] [address]DrHong Gomez CRPon 01-14-2022 CRP 1.1 mg/dL Critically high <=1.0 [facility] Comment on above: Performed By: #### C JENELLE, ALB, ALT, CRP ####[facility] [address] [address]DrHong Gomez SED RATE WESTERGRENon 2021 SED RATE 37 mm/hr Critically high <=30 [facility] Comment on above: Performed By: #### C BC #### [facility] [address] [place], [place] [address] Dr. Wilbert Gomez SGPTon 01-14-2022 ALT [Catalytic activity/Vol] 30 U/L Normal 14-59 [facility] Comment on above: Performed By: #### C JENELLE, ALB, ALT, CRP ####[facility] [address] [place], [place] [address]YmDr. Wilbert Gomez VC CONSULT FOLLOWUPon 2021 VC CONSULT FOLLOWUP Patient: JEAN PIERRE RAY Exam Date: 12/29/2021 : 1965 Gender:F Ordering : DR KEILA DE LA FUENTE M.D. Admission #: [id number] Family : Order #: [id number] CLICK HERE TO VIEW EXAM RADIOLOGY REPORT [...] Fuente MD on 12/29/2021 at 15:41 Normal [facility] VC EXT VENOUS LT LIMITEDon 1 02-28-2021 VC EXT VENOUS LT LIMITED Patient: CIELO RAY Exam Date: 12/29/2021 : 1965 Gender:F Ordering : DR KEILA DE LA FUENTE M.D. Admission #: [id number] Family : Order #: [id number] CLICK HERE TO VIEW EXAM RADIOLOGY REPORT [...] Fuente MD on 12/29/2021 at 15:34 Normal [facility] VC ENDOVENOUS ABL 1ST V LTon 12-22-2021 VC ENDOVENOUS ABL 1ST V LT Patient: CIELO RAY Exam Date: 12/22/2021 : 1965 Gender:F Ordering : DR KEILA DE LA FUENTE M.D. Admission #: [id number] Family : Order #: [id number] CLICK HERE TO VIEW EXAM RADIOLOGY REPORT [...] Fuente MD on 12/22/2021 at 16:10 Normal [facility] VC COMP CONSULTATIONon 11-30 VC COMP CONSULTATION Patient: KARINA RAY Exam Date: 11/30/2021 : 1965 Gender:F Ordering : DR KEILA DE LA FUENTE M.D. Admission #: [id number] Family : Order #: [id number] CLICK HERE TO VIEW EXAM RADIOLOGY REPORT PROCEDURE: VC VEIN CENTER CONSULTATION VEIN CENTER - OFFICE [...] great saphenous and small saphenous veins. Bilateral authorization representative veins and incompetent branch saphenous varicosities. PHYSICAL [...] arterial disease 5. CEAP: C2, EC, AP, WA PLAN: 1. Continued use of compression stockings 2. Elevated legs and increased physical activity symptomatic relief 3. Endovenous laser ablation of left great saphenous left small saphenous veins, left and right authorization representative veins. 4. Microfoam chemical ablation of dilated, incompetent branch saphenous varicosities within right and left lower extremities Nurse notes, history and physical were reviewed and confirmed, see attached forms. The nurse was present throughout the physical exam and consultation Dictated by: Hayden Perla M.D. on 12/01/2021 at 08:06 Approved by: Hayden Perla M.D. on 12/01/2021 at 09:12 [facility] VC VENOUS REFLUX MICHELLE LMTon 1 VC VENOUS REFLUX MICHELLE LMT Patient: CIELO RAY Exam Date: 11/30/2021 : 1965 Gender:F Ordering : DR KEILA DE LA FUENTE M.D. Admission #: [id number] Family : Order #: [id number] CLICK HERE TO VIEW EXAM RADIOLOGY REPORT [...] treated GSV. Incomptent varicose vein associated with authorization representative distal thigh measures 6.2 mm with 2.6s [...] thrombus. Compressibility: Normal. Flow: Deep venous reflux. Resident Care Provider: Two medial/distal lower leg perfs measures 3.9 [...] and small saphenous veins. 2. Dilated, incompetent authorization representative veins and branch saphenous varicosities bilaterally. 3. Consultation for endovenous ablation is recommended. Dictated by: Hayden Perla M.D. on 11/30/2021 at 15:51 Approved by: Hayden Perla M.D. on 11/30/2021 at 15:53 Normal [facility] INSULINon 10-09-2021 Insulin 11.9 uIU/mL Normal 2.6-24.9 [facility] Comment on above: Performed By: #### I NSULIN ####[facility] [address] [address]Dr. Wilbert Gomez T4, T3U, FTI LABCORPon 10-09 Free Thyroxine Index 2.1 Normal 1.2-4.9 [facility] Comment on above: Performed By: #### T HYLC ####[facility] [address] [address]Dr. Wilbert Gomez T3 Uptake 29 % Normal 24-39 [facility] Comment on above: Performed By: #### T HYLC ####[facility] [address] [address]Dr. Wilbert Gomez T4 [Mass/Vol] 7.4 ug/dL Normal 4.5-12.[address] [facility] Comment on above: Performed By: #### T HYLC ####[facility] [address] [address]Dr. Wilbert Gomez GLYCOHEMOGLOBIN A1Con 2021 ADA RECOMMENDATION SEE BELOW Normal [facility] Comment on above: Result Comment: ADA RECOMMENDED LIMIT 4.0 - 6.0 ADA THERAPEUTIC TARGET < 7.0 ACTION SUGGESTED > 7.0 Performed By: #### A 1C ####[facility] [address] [address]Dr. Wilbert Gomez Glucose [Mass/Vol] 111 mg/dL Normal [facility] Comment on above: Performed By: #### A 1C ####[facility] [address] [address]Dr. Wilbert Gomez HbA1c (Bld) [Mass fraction] 5.5 % Normal 4.5-6.2 [facility] Comment on above: Performed By: #### A 1C ####[facility] [address] [place], [place] [address]Au. Wilbert Gomez IRONon 10-08-2021 Iron [Mass/Vol] 67.0 ug/dL Normal 50.0-170.0 [facility] Comment on above: Performed By: #### I SOLA #### [facility] [address] [place], [place] [address] Dr. Wilbert Gomez LIPID PROFILEon 10-08-2021 CHOL-HDL RATIO NORM SEE BELOW Normal [facility] Comment on above: Result Comment: 3.3 - 4.4 LOW RISK 4.4 - 7.1 AVERAGE RISK 7.1 - 11.0 MODERATE RISK >11.0 HIGH RISK Performed By: #### L IPID, TSH, CMP ####[facility] [address] [id number]. Wilbert Gomez Cholesterol [Mass/Vol] 205 mg/dL Critically high <=200 [facility] Comment on above: Performed By: #### L IPID, TSH, CMP ####[facility] [address] [id number]. Wilbert Gomez Cholesterol in HDL [Mass/Vol] 81 mg/dL Critically high 40-60 [facility] Comment on above: Performed By: #### L IPID, TSH, CMP ####[facility] [address] [place], [place] [address]Mb. Wilbert Gomez Cholesterol in LDL [Mass/Vol] 108.0 mg/dL Normal [facility] Comment on above: Performed By: #### L IPID, TSH, CMP ####[facility] [address] [place], [place] [address]Yp. Wilbert Gomez Cholesterol.total/Ch olesterol in HDL [Mass ratio] 2.5 {ratio} Normal [facility] Comment on above: Performed By: #### L IPID, TSH, CMP ####[facility] [address] [place], [place] [address]Lr. Wilbert Gomez HDL NORMAL > or = 60 mg/dl - LO W CARDIOVASCULAR RISK <40 mg/dl - HIGH CARDIOVASCULAR RISK Normal [facility] Comment on above: Performed By: #### L IPID, TSH, CMP ####[facility] [address] [address]Dr. Wilbert Gomez LDL CALC NORMAL SEE BELOW Normal [facility] Comment on above: Result Comment: <100 mg/dl OPTIMAL 100 - 129 mg/dl NEAR OR ABOVE OPTIMAL 130 - 159 mg/dl BORDERLINE HIGH 160 - 189 mg/dl HIGH >190 mg/dl VERY HIGH Performed By: #### L IPID, TSH, CMP ####[facility] [address] [address]Dr. Wilbert Gomez Triglyceride [Mass/Vol] 80 mg/dL Normal <=150 [facility] Comment on above: Performed By: #### L IPID, TSH, CMP ####[facility] [address] [address]Dr. Wilbert Gomez VLDL CALC 16.0 mg/dL Normal [facility] Comment on above: Performed By: #### L IPID, TSH, CMP ####[facility] [address] [address]Dr. Wilbert Gomez PROF 14(COMP METB)on 022 Albumin [Mass/Vol] 3.6 g/dL Normal 3.4-5.0 [facility] Comment on above: Performed By: #### L IPID, TSH, CMP ####[facility] [address] [address]Dr. Wilbert Gomez Albumin/Globulin [Mass ratio] 1.0 {ratio} Normal [facility] Comment on above: Performed By: #### L IPID, TSH, CMP ####[facility] [address] [address]Dr. Wilbert Gomez ALP [Catalytic activity/Vol] 86 U/L Normal 46-116 [facility] Comment on above: Performed By: #### L IPID, TSH, CMP ####[facility] [address] [address]Dr. Wilbert Gomez ALT [Catalytic activity/Vol] 27 U/L Normal 14-59 [facility] Comment on above: Performed By: #### L IPID, TSH, CMP ####[facility] [address] [address]Dr. Wilbert Gomez Anion gap [Moles/Vol] 12.1 mmol/L Normal [facility] Comment on above: Performed By: #### L IPID, TSH, CMP ####[facility] [address] [address]Dr. Wilbert Gomez AST [Catalytic activity/Vol] 23 U/L Normal 15-37 [facility] Comment on above: Performed By: #### L IPID, TSH, CMP ####[facility] [address] [place], [place] [address]Dr. Wilbert Gomez Bilirubin [Mass/Vol] 0.6 mg/dL Normal 0.2-1.0 [facility] Comment on above: Performed By: #### L IPID, TSH, CMP ####[facility] [address] [place], [place] [address]Dr. Wilbert Gomez Calcium [Mass/Vol] 8.7 mg/dL Normal 8.5-10.1 [facility] Comment on above: Performed By: #### L IPID, TSH, CMP ####[facility] [address] [place], [place] [address]Dr. Wilbert Gomez Chloride [Moles/Vol] 104 mmol/L Normal 98-107 [facility] Comment on above: Performed By: #### L IPID, TSH, CMP ####[facility] [address] [place], [place] [address]Dr. Wilbert Gomez CO2 [Moles/Vol] 26.8 mmol/L Normal 21.0-32.0 [facility] Comment on above: Performed By: #### L IPID, TSH, CMP ####[facility] [address] [place], [place] [address]Dr. Wilbert Gomez Creatinine [Mass/Vol] 0.85 mg/dL Normal 0.55-1.02 [facility] Comment on above: Performed By: #### L IPID, TSH, CMP ####[facility] [address] [place], [place] [address]Dr. Wilbert Gomez EGFR-AF AUSTRALIAN >60 Normal >=60 [facility] Comment on above: Performed By: #### L IPID, TSH, CMP ####[facility] [address] [address]Dr. Wilbert Gomez EGFR-NON AF AUSTRALIAN >60 Normal >=60 [facility] Comment on above: Performed By: #### L IPID, TSH, CMP ####[facility] [address] [address]Dr. Wilbert Gomez Globulin (S) [Mass/Vol] 3.7 g/dL Normal [facility] Comment on above: Performed By: #### L IPID, TSH, CMP ####[facility] [address] [place], [place] [address]Dr. Wilbert Gomez Glucose [Mass/Vol] 92 mg/dL Normal 74-106 [facility] Comment on above: Performed By: #### L IPID, TSH, CMP ####[facility] [address] [place], [place] [address]Dr. Wilbert Gomez Potassium [Moles/Vol] 3.9 mmol/L Normal 3.5-5.1 [facility] Comment on above: Performed By: #### L IPID, TSH, CMP ####[facility] [address] [place], [place] [address]Dr. Wilbert Gomez Protein [Mass/Vol] 7.3 g/dL Normal 6.4-8.2 [facility] Comment on above: Performed By: #### L IPID, TSH, CMP ####[facility] [address] [place], [place] [address]Dr. Wilbert Gomez Sodium [Moles/Vol] 139 mmol/L Normal 136-145 [facility] Comment on above: Performed By: #### L IPID, TSH, CMP ####[facility] [address] [place], [place] [address]Dr. Wilbert Gomez Urea nitrogen [Mass/Vol] 10.0 mg/dL Normal 7.0-18.0 [facility] Comment on above: Performed By: #### L IPID, TSH, CMP ####[facility] [address] [id number]. Wilbert Gomez Urea nitrogen/Creatinine [Mass ratio] 11.8 mg/mg Normal [facility] Comment on above: Performed By: #### L IPID, TSH, CMP ####[facility] [address] [place], [place] [address]WpDr. Wilbert Gomez TSHon 10-08-2021 TSH 0.731 uIU/mL Normal 0.358-3.740 [facility] Comment on above: Performed By: #### L IPID, TSH, CMP ####[facility] [address] [id number] Gomez ALBUMINon 07-30-2021 Albumin [Mass/Vol] 3.8 g/dL Normal 3.4-5.0 [facility] Comment on above: Performed By: #### C JENELLE, ALT, CRP, ALB #### [facility] [address] [place] [address] Dr. Wilbert Gomez CBC AUTO DIFFon 07-30-2021 BASO # 0.0 103/ul Normal 0.0-0.1 [facility] Comment on above: Performed By: #### C BC #### [facility] [address] [place] [address] Dr. Wilbert Gomez Basophils/100 WBC (Bld) 0.6 % Normal 0.2-2.0 [facility] Comment on above: Performed By: #### C BC #### [facility] [address] [place] [address] Dr. Wilbert Gomez EO # 0.2 103/ul Normal 0.0-0.7 [facility] Comment on above: Performed By: #### C BC #### [facility] [address] [place] [address] Dr. Wilbert Gomez Eosinophils/100 WBC (Bld) 4.1 % Normal 0.9-7.0 [facility] Comment on above: Performed By: #### C BC #### [facility] [address] [place] [address] Dr. Wilbert Gomez Erythrocyte distribution width (RBC) [Ratio] 14.0 % Normal 11.0-15.0 [facility] Comment on above: Performed By: #### C BC #### [facility] [address] [place] [address] Dr. Wilbert Gomez Hematocrit (Bld) [Volume fraction] 37.4 % Normal 36.0-48.0 [facility] Comment on above: Performed By: #### C BC #### [facility] [address] [place] [address] Dr. Wilbert Gomez Hemoglobin (Bld) [Mass/Vol] 12.2 g/dL Normal 12.0-16.0 [facility] Comment on above: Performed By: #### C BC #### [facility] [address] [place] [address] Dr. Wilbert Gomez IG # 0.01 10e3/ul Normal 0.00-0.03 [facility] Comment on above: Performed By: #### C BC #### [facility] [address] [place] [address] Dr. Wilbert Gomez IG % 0.2 % Normal 0.0-0.5 [facility] Comment on above: Performed By: #### C BC #### [facility] [address] [place] [address] Dr. Wilbert Gomez LYMPH # 1.6 103/ul Normal 1.2-3.8 [facility] Comment on above: Performed By: #### C BC #### [facility] [address] [place] [address] Dr. Wilbert Gomez Lymphocytes/100 WBC (Bld) 33.4 % Normal 20.5-60.0 [facility] Comment on above: Performed By: #### C BC #### [facility] [address] [place] [address] Dr. Wilbert Gomez MANUAL DIFF REQ NO Normal [facility] Comment on above: Performed By: #### C BC #### [facility] [address] [place] [address] Dr. Wilbert Gomez MCH (RBC) [Entitic mass] 31.9 pg Normal 26.7-34.0 [facility] Comment on above: Performed By: #### C BC #### [facility] [address] [address] [address] Wilbert Gomez MCHC (RBC) [Mass/Vol] 32.6 g/dL Normal 29.9-35.2 [facility] Comment on above: Performed By: #### C BC #### [facility] [address] [address] [address] Wilbert Gomez MCV (RBC) [Entitic vol] 97.7 fL Normal 81.0-99.0 [facility] Comment on above: Performed By: #### C BC #### [facility] [address] [place] [address] Dr. Wilbert Gomez MONO # 0.5 103/ul Normal 0.3-0.8 [facility] Comment on above: Performed By: #### C BC #### [facility] [address] [place] [address] Dr. Wilbert Gomez Monocytes/100 WBC (Bld) 11.0 % Normal 1.7-12.0 [facility] Comment on above: Performed By: #### C BC #### [facility] [address] [place] [address] Dr. Wilbert Gomez NEUT # 2.4 103/ul Normal 1.4-6.5 [facility] Comment on above: Performed By: #### C BC #### [facility] [address] [place] [address] Dr. Wilbert Gomez Neutrophils/100 WBC (Bld) 50.7 % Normal 43.0-75.0 [facility] Comment on above: Performed By: #### C BC #### [facility] [address] [place] [address] Dr. Wilbert Gomez Platelet mean volume (Bld) [Entitic vol] 8.8 fL Critically low 9.5-13.5 [facility] Comment on above: Performed By: #### C BC #### [facility] [address] [place] [address] Dr. Wilbert Gomez PLT 228 103/ul Normal 150-450 [facility] Comment on above: Performed By: #### C BC #### [facility] [address] [address] [address] Wilbert Gomez RBC 3.83 106/ul Critically low 4.20-5.40 [facility] Comment on above: Performed By: #### C BC #### [facility] [address] [place] [address] Dr. Wilbert Gomez WBC 4.8 103/ul Normal 4.0-11.0 [facility] Comment on above: Performed By: #### C BC #### [facility] Laboratory [address] [place] [address] Dr. Wilbert Gomez CREATININEon 07-30-2021 Creatinine [Mass/Vol] 0.87 mg/dL Normal 0.55-1.02 [facility] [place] Comment on above: Performed By: #### C JENELLE, ALT, CRP, ALB #### [facility] Laboratory [address] [place] [address] Dr. Wilbert Gomez EGFR-AF AUSTRALIAN >60 Normal >=60 [facility] Comment on above: Performed By: #### C JENELLE, ALT, CRP, ALB #### [facility] Laboratory [address] [place] [address] Dr. Wilbert Gomez EGFR-NON AF AUSTRALIAN >60 Normal >=60 [facility] [place] Comment on above: Performed By: #### C JENELLE, ALT, CRP, ALB #### [facility] Laboratory [address] [place] [address] Dr. Wilbert Gomez CRPon 07-30-2021 CRP 1.5 mg/dL Critically high <=1.0 [facility] Comment on above: Performed By: #### C JENELLE, ALT, CRP, ALB #### [facility] Laboratory [address] [place] [address] Dr. Wilbert Gomez SED RATE NORWALKERGRENon 2021 SED RATE 14 mm/hr Normal <=30 [facility] [place] Comment on above: Performed By: #### S EDR #### [facility] Laboratory [address] [place] [address] Dr. Wilbert Gomez SGPTon 07-30-2021 ALT [Catalytic activity/Vol] 38 U/L Normal 14-59 [facility] [place] Comment on above: Performed By: #### C JENELLE, ALT, CRP, ALB #### [facility] Laboratory [address] [address] [address] Wilbert Gomez MG MAMM SCREEN 3D MICHELLE CADon 07-16-2021 MG MAMM SCREEN 3D MICHELLE CAD Patient: CIELO RAY Exam Date: 07/16/2021 : 1965 Gender:F Ordering : TERESA DE [facility] Admission #: [id number] Family : Order #: [id number] CLICK HERE TO VIEW EXAM RADIOLOGY REPORT [...] breast cancer at age 55. LOCATION: [facility] BREAST COMPOSITION: Heterogeneously dense,which may obscure small [...] Perla M.D. on 07/17/2021 at 09:49 Normal [facility] Vital Signs Date Time Vital Sign Value Performing Clinician Doriani lity 03-27-2024 14:22-0500 Body height 167.6 cm Karolina BOLANOSFAS Work Phone: [facility] 03-27-2024 14:22-0500 Body mass index (BMI) [Ratio] 29.38 kg/m2 Karolina Bryson DPM FACFAS Work Phone: [facility] 03-27-2024 14:22-0500 Body weight 82.56 kg Karolina Dolce DPM FACFAS Work Phone: [facility] 03-27-2024 14:22-0500 Diastolic blood pressure 77 mm[Hg] Karolina Dolce DPM FACFAS Work Phone: [facility] 03-27-2024 14:22-0500 Heart rate 80 /min Karolina Dolce DPM FACFAS Work Phone: [facility] 03-27-2024 14:22-0500 Systolic blood pressure 128 mm[Hg] Karolina Dolce DPM FACFAS Work Phone: [facility] 03-20-2024 13:41-0500 Body height 167.6 cm Karolina Dolce DPM FACFAS Work Phone: [facility] 03-20-2024 13:41-0500 Body mass index (BMI) [Ratio] 29.38 kg/m2 Karolina Dolce DPM FACFAS Work Phone: [facility] 03-20-2024 13:41-0500 Body weight 82.56 kg Karolina Dolce DPM FACFAS Work Phone: [facility] 03-20-2024 13:41-0500 Diastolic blood pressure 75 mm[Hg] Karolina Dolce DPM FACFAS Work Phone: [facility] 03-20-2024 13:41-0500 Heart rate 82 /min Karolina Dolce DPM FACFAS Work Phone: [facility] 03-20-2024 13:41-0500 Systolic blood pressure 129 mm[Hg] Karolina Dolce DPM FACFAS Work Phone: [facility] 02-23-2024 15:43-0500 Body height 167.6 cm Karolina Dolce DPM FACFAS Work Phone: [facility] 02-23-2024 15:43-0500 Body mass index (BMI) [Ratio] 29.38 kg/m2 Karolina Dolce DPM FACFAS Work Phone: [facility] 02-23-2024 15:43-0500 Body weight 82.56 kg Karolina Dolce DPM FACFAS Work Phone: [facility] 02-23-2024 15:43-0500 Diastolic blood pressure 76 mm[Hg] Karolina Dolce DPM FACFAS Work Phone: [facility] 02-23-2024 15:43-0500 Heart rate 85 /min Karolina Dolce DPM FACFAS Work Phone: [facility] 02-23-2024 15:43-0500 Systolic blood pressure 128 mm[Hg] Karolina Dolce DPM FACFAS Work Phone: [facility] 01-26-2024 16:45-0500 Body height 167.6 cm Karolina Dolce DPM FACFAS Work Phone: [facility] 01-26-2024 16:45-0500 Body mass index (BMI) [Ratio] 29.38 kg/m2 Karolina Dolce DPM FACFAS Work Phone: [facility] 01-26-2024 16:45-0500 Body weight 82.56 kg Karolina Dolce DPM FACFAS Work Phone: [facility] 01-26-2024 16:45-0500 Diastolic blood pressure 75 mm[Hg] Karolina Dolce DPM FACFAS Work Phone: [facility] 01-26-2024 16:45-0500 Heart rate 82 /min Karolina Dolce DPM FACFAS Work Phone: [facility] 01-26-2024 16:45-0500 Systolic blood pressure 130 mm[Hg] Karolina Dolce DPM FACFAS Work Phone: [facility] 10-27-2023 15:33-0400 Body height 167.6 cm Karolina Dolce DPM FACFAS Work Phone: [facility] 10-27-2023 15:33-0400 Body mass index (BMI) [Ratio] 29.38 kg/m2 Karolina Dolce DPM FACFAS Work Phone: [facility] 10-27-2023 15:33-0400 Body weight 82.56 kg Karolina Dolce DPM FACFAS Work Phone: [facility] 10-27-2023 15:33-0400 Diastolic blood pressure 74 mm[Hg] Karolina Dolce DPM FACFAS Work Phone: [facility] 10-27-2023 15:33-0400 Heart rate 80 /min Karolina Dolce DPM FACFAS Work Phone: [facility] 10-27-2023 15:33-0400 Systolic blood pressure 132 mm[Hg] Karolina Dolce DPM FACFAS Work Phone: [facility] Healthcare Encounters Encounter Date Encounter Type Care Provider Facility Start: 03-27-2024 End: 03-27-2024 Postop follow up visit related to original px Karolina R Dolce DPM FACFAS Work Phone: [facility] Comment on above: Arciniega neuroma, brianna t (Primary Dx); Metatarsal deformity, right Start: 03-27-2024 End: 03-27-2024 ambulatory KAROLINA R DOLCE Not Available Start: 03-27-2024 End: 03-27-2024 Bamboo flowsheet Karolina R Dolce DPM FACFAS Work Phone: [facility] Start: 03-27-2024 End: 03-27-2024 Bamboo flowsheet Karolina R Dolce DPM FACFAS Work Phone: [facility] Start: 03-20-2024 End: 03-20-2024 Bamboo flowsheet Karolina R Dolce DPM FACFAS Work Phone: [facility] Start: 03-20-2024 End: 03-20-2024 Bamboo flowsheet Karolina R Dolce DPM FACFAS Work Phone: [facility] Start: 03-20-2024 End: 03-20-2024 Postop follow up visit related to original px Karolina R Dolce DPM FACFAS Work Phone: [facility] Comment on above: Arciniega neuroma, righ t (Primary Dx); Metatarsal deformity, right Start: 03-20-2024 End: 03-20-2024 ambulatory KAROLINA R DOLCE Not Available Start: 03-15-2024 End: 03-15-2024 ambulatory Karolina R Dolce Facility:[facility] Start: 03-15-2024 End: 03-15-2024 Lab Drop off Karolina R Dolce [facility] Start: 03-14-2024 End: 03-14-2024 Refill Karolina R Dolce DPM FACFAS Work Phone: [facility] Comment on above: Metatarsal deformity , right (Primary Dx) Start: 02-23-2024 End: 02-23-2024 Office outpatient visit [...] 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) ([facility]/HCC) Start: 10-27-2023 End: 10-27-2023 ambulatory KAROLINA R DOLCE Not Available Start: 10-27-2023 End: 10-27-2023 Bamboo flowsheet Karolina R Dolce DPM FACFAS Work Phone: [facility] Start: 10-27-2023 End: 10-27-2023 Bamboo flowsheet Karolina R Dolce DPM FACFAS Work Phone: [facility] Start: 09-14-2023 End: 09-17-2023 Pre-admission assessment Karolina R Dolce [facility] Start: 09-13-2023 End: 09-13-2023 ambulatory KAROLINA R DOLCE Not Available Start: 08-25-2023 End: 08-25-2023 ambulatory KAROLINA R DOLCE Not Available Start: 07-26-2023 End: 07-26-2023 ambulatory KAROLINA R DOLCE Not Available Start: 07-05-2023 End: 07-05-2023 ambulatory KAROLINA R DOLCE Not Available Start: 06-22-2022 End: 06-22-2022 ambulatory Esdras Bonilla Facility:[facility] Start: 06-02-2022 ambulatory TERESA DE Facility: [...] medical examination without abnormal findings TERESA DE [facility] Start: 10-08-2021 End: 10-09-2021 ambulatory TERESA DE Facility:[facility] Start: 10-08-2021 End: 10-09-2021 Encounter for general adult medical examination without abnormal findings TERESA DE Facility:[facility] Start: 07-30-2021 End: 07-31-2021 ambulatory ERIKA MCCRACKEN Facility:[facility] Start: 07-16-2021 End: 07-17-2021 ambulatory TERESA DE Facility:[facility] Plan of Treatment Date Care Activity Detail Author Start: 04-17-2024 End: 04-17-2024 Patient encounter procedure 04/17/2024 1:50 PM EST Office Visit [facility] [address] [place] [address] Karolina Bryson, DPM FACFAS [address] [place] [address] [facility] Start: 03-27-2024 End: 03-27-2024 Patient encounter procedure [facility] Comment on above: Arrived Start: 03-20-2024 End: 03-20-2024 Patient encounter procedure [facility] Comment on above: Arrived Start: 02-23-2024 End: 02-23-2024 Patient encounter procedure 02/23/2024 3:40 PM EST Office Visit [facility] [address] [place] [id number] Karolina Bryson R, DPM FACFAS [address] [place] [address] Arrived [facility] Comment on above: Arrived Start: 01-26-2024 End: 01-26-2024 Patient encounter procedure 01/26/2024 4:50 PM EST Office Visit [facility] [address] [place] [phone] Jesus Brysonm R, DPM FACFAS [address] [place] [address] Arrived [facility] Comment on above: Arrived Start: 10-27-2023 End: 10-27-2023 Patient encounter procedure 10/27/2023 3:30 PM EDT Office Visit [facility] [address] [place] [phone] Karolina Bryson R, DPM FACFAS [address] [place] [address] Arrived [facility] Comment on above: Arrived Start: 10-16-2023 Influenza vaccination Influenza Vacc ine (#1) [facility] Start: 2005 Screening for malign ant neoplasm of breast Mammogram [facility] Start: 11-13-1995 Screening for malign ant neoplasm of cervix [facility] Start: 1986 Screening for malign ant neoplasm of cervix Pap Smear [facility] Start: 1965 Screening for malign ant neoplasm of colon [facility] Healthcare Payers Date Payer Category Payer [facility] [id number] 2023 Unknown BCBS BCBS xxxxxx [id number] 2023-Present [phone] [address] [place] [address] [id number] 2023 Unknown [id number] 2022 Self-pay 1965 Unknown [id number] [id number] 9.2.593 1965 Unknown [id number] 2.16.840.1.047012.3.57 9.2.593 1965 Unknown [id number] 2.16.840.1.538272.3.57 9.2.593 1965 Unknown [id number] 2.16.840.1.298424.3.57 9.2.593 1965 Unknown [id number] 2.16.840.1.972972.3.57 9.2.593 1965 Unknown [id number] 2.16.840.1.669693.3.57 9.2.593 1965 Unknown [id number] 2.16.840.1.945241.3.57 9.2.593 1965 Unknown [id number] 2.16.840.1.813156.3.57 9.2.593 1965 Unknown [id number] 2.16.840.1.446384.3.57 9.2.593 1965 Unknown [id number] 2.16.840.1.196383.3.57 9.2.593 1965 Unknown [id number] 2.16.840.1.624964.3.57 9.2.727 1965 Unknown [id number] 2.16.840.1.912078.3.57 9.2.1259 1965 Unknown [id number] 2.16.840.1.401441.3.57 9.2.1259 1965 Unknown [id number] 2.16.840.1.502222.3.57 9.2.1259 1965 Unknown [id number] 2.16.840.1.208502.3.57 9.2.125 1965 Unknown [id number] 2.16.840.1.240467.3.57 9.2.1259 1965 Unknown [id number] 2.16.840.1.044230.3.57 9.2.125 1965 Unknown [id number] 2.16.840.1.358162.3.57 9.2.1259 1965 Unknown [id number] 2.16.840.1.917224.3.57 9.2.125 1965 Unknown [id number] 2.16.840.1.997479.3.57 9.2.1259 1965 Unknown [id number] 2.16.840.1.462739.3.57 9.2.1259 1959 Unknown [id number] Unknown [id number] 2.16.840.1.796714.3.57 9.2.531 Social History Date Type Detail Facility Tobacco smoking status [facility] Start: 09-13-2023 End: 03-27-2024 Sex Assigned At Female [facility] Start: 07-05-2023 Tobacco smoking stat [facility] Never smoked tobacco [facility] Work Phone: Start: 07-05-2023 Tobacco use and exposure Smokeless tobacco non-user [facility] Start: 09-13-2023 End: 03-27-2024 Alcoholic beverage intake Defer [facility] Start: 09-13-2023 End: 03-27-2024 History of Social function [facility] Start: 1965 Sex assigned at Not on file [facility] Clinical Notes 10-27-2023 to 03-27-2024 Karolina Bryson, RADHA FACFAS - 03/27/2024 2:20 PM Mary Bryson, RADHA FACFAS - 03/20/2024 1:30 PM ESTTelephone Encounter - Karolina Bryson DPM FACPOLI - 03/14/2024 4:15 PM EST Note Date & Type Note Facility 03-27-2024 History of Presen t illness Narrative Images from the original note were not included. Patient: Cielo Ray : 1965 PCP: Paul Villatoro MD SUBJECTIVE This is a 58 y.o. female that presents today The patient is here status post neuroma resection 2nd webspace right procedure. Postop week 2. They deny fevers, chills, nausea, vomiting, calf pain and shortness of breath. Pain level is being managed with ice elevation and pain medication. They have been relatively compliant with her postoperative care. Pt removed dressing due it getting wet she is also wearing her normal shoe with no pain she also has no dressing on. Allergies: Not on File Past Medical History: No past medical history on file. Medications: No current outpatient medications on file. [...] < 3 seconds Digits 1-5 bilateral NEURO: [place] Scott 5.07 monofilament was intact B/L. Vibratory sensation was intact B/L Musculoskeletal: Muscle strength was +5 over 5 all intrinsic and extrinsic muscles tested. Negative Homans test noted Surgical site evaluation: The incision site is healing well without signs infection. Minimal swelling noted. Consistent with the patient's level of surgery consistent with time frame postoperatively. Sutures remain intact without signs of dehiscence. Radiographs: AP/MO/LAT: Diagnostic ultrasound: ASSESSMENT 1. Arciniega neuroma, right 2. Metatarsal deformity, right PLAN Removed sutures today. Today we applied a dry sterile dressing with betadine to the incision site. Covered the incision with 4x4s, Kerlix and Norberto bandage. The Patient is to continue ice and elevation on a regular basis. They were reminded to remain compliant with her weight-bearing status in the ambulatory surgical device. Pt is wearing her normal tennis shoe RADHA Morales documented in this encounter [facility] 03-20-2024 History of Presen t illness Narrative Images from the original note were not included. Patient: Cielo Ray : 1965 PCP: Paul Villatoro MD SUBJECTIVE This is a 58 y.o. female that presents today The patient is here status post neuroma resection 2nd webspace right procedure. Postop week 1. They deny fevers, chills, nausea, vomiting, calf pain and shortness of breath. Pain level is being managed with ice elevation and pain medication. They have been relatively compliant with her postoperative care. Pt removed dressing due it getting wet she is also wearing her normal shoe with no pain Allergies: Not on File Past Medical History: No past medical history on file. Medications: No current outpatient medications on file. [...] < 3 seconds Digits 1-5 bilateral NEURO: [place] Scott 5.07 monofilament was intact B/L. Vibratory sensation was intact B/L Musculoskeletal: Muscle strength was +5 over 5 all intrinsic and extrinsic muscles tested. Negative Homans test noted Surgical site evaluation: The incision site is healing well without signs infection. Minimal swelling noted. Consistent with the patient's level of surgery consistent with time frame postoperatively. Sutures remain intact without signs of dehiscence. Radiographs: AP/MO/LAT: Diagnostic ultrasound: ASSESSMENT 1. Arciniega neuroma, right 2. Metatarsal deformity, right PLAN Today we applied a dry sterile dressing with betadine to the incision site. Covered the incision with 4x4s, Kerlix and Norberto bandage. The Patient is to continue ice and elevation on a regular basis. They were reminded to remain compliant with her weight-bearing status in the ambulatory surgical device. RADHA Morales documented in this encounter [facility] 03-14-2024 Telephone encounter Note Post op pain meds [facility] 03-14-2024 Miscellaneous Notes Post op pain meds documented in this encounter [facility] 02-23-2024 History of Presen t illness Narrative [...] < 3 seconds Digits 1-5 bilateral NEURO: [place] Scott 5.07 monofilament was intact B/L. Vibratory [...] for the above-stated procedure. End february RADHA Moraels documented in this encounter [facility] 01-26-2024 History of Presen t illness Narrative Images from the original note were not included. Patient: Ceilo Ray : 1965 PCP: Paul Villatoro MD [...] < 3 seconds Digits 1-5 bilateral NEURO: [place] Scott 5.07 monofilament was intact B/L. Vibratory [...] tissue. RADHA Morales documented in this encounter [facility] 10-27-2023 History of Presen t illness Narrative [...] shoes. RADHA Morales documented in this encounter [facility] Healthcare Evaluation + Plan note No data available for this section [facility] Evaluation note Diagnosis Arciniega neuroma, right- Primary Metatarsal deformity, right 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) (CMS/HCC) documented in this encounter [facility] HealthcareEvaluation note* Diagnosis Metatarsal deformity, right- Primary Arciniega neuroma, right Right foot pain Pain in soft tissues of limb documented in this encounter [facility] Diagnosis Arciniega neuroma, right- Primary Metatarsal deformity, right documented in this encounter [facility] HealthcareEvaluation note* Diagnosis Metatarsal deformity, right- Primary documented in this encounter [facility] HealthcareEvaluation note* Diagnosis Arciniega neuroma, right- Primary Metatarsal deformity, right documented in this encounter [facility] Healthcare[facility]ospital Discharge instructions No data available for this section [facility] Progress note No data available for this section [facility] Summary Purpose Family History No Family History Records FoundNo Family History Records Found No data available for this section No data available for this section No Family History Records FoundNo Family History Records FoundNo Family History Records Found Advance Directives No Advanced Directives Records FoundNo Advanced Directives Records FoundNo Advanced Directives Records FoundNo Advanced Directives Records FoundNo Advanced Directives Records Found Additional Source Comments INFORMATION SOURCE (unrecogn ized section and content) DATE CREATED AUTHOR 06/03/2022 [facility] DATE CREATED AUTHOR AUTHOR'S ORGANIZ ATION 06/26/2022 [facility] DATE CREATED AUTHOR AUTHOR'S ORGANIZ ATION 03/17/2024 [facility] DATE CREATED AUTHOR AUTHOR'S ORGANIZ ATION 03/25/2024 [facility] DATE CREATED AUTHOR AUTHOR'S ORGANIZ ATION 03/29/2024 [facility] EPIC Patient Care team informatio n (unrecognized section and content) Application Analyst Relationship Specialty Start Date End Date Paul Villatoro MD [address] [place] [address] PCP - General Family Medicine 09/13/23 Teresa De MD [address] [place], [place] [id number] Referring Physician Family Medicine 07/05/23 Application Analyst Relationship Specialty Start Date End Date Paul Villatoro MD [facility] [place] [address] PCP - General Family Medicine 09/13/23 [place] [address] [place], [place] [phone] Referring Physician Family Medicine 07/05/23 Application Analyst Relationship Specialty Start Date End Date Paul Villatoro MD [address] [place] [address] PCP - General Family Medicine 09/13/23 Teresa De MD [address] [place] [address] Referring Physician Family Medicine 07/05/23 Application Analyst Relationship Specialty Start Date End Date Paul Villatoro MD [facility] [place] [address] PCP - General Family Medicine 09/13/23 Teresa De MD [facility] [place] [address] Referring Physician Family Medicine 07/05/23 Reason for Visit (unrecogniz ed section and content) Reason Comments Follow-up F/U RT foot MRI Reason Comments Neuroma RT foot neuroma pain Reason Comments Neuroma Wants to discuss sheyla varun for neuroma on RT foot Reason Comments Foot/ankle Post-op WK 1 post op - No dr marrero on foot at visit, regular shoe Reason Comments Foot/ankle Post-op WK 2 post op FOR RECORDS PERTAINING TO PATIENTS WHO ARE [...] BE BASED ON THE PRIMARY CLINICAL RECORDS. [facility] [employer] [facility]. provides no warranty or guarantee of the accuracy or completeness of information in this document.
[2024-03-30 13:44] LABS: Basophils Absolute Auto 0.1 10^3/uL (0.0-0.1); Basophils Percent Auto 0.9 % (0.2-2.0); Eosinophils Absolute Auto 0.4 10^3/uL (0.0-0.7); Eosinophils Percent Auto 5.1 % (0.9-7.0); Hematocrit 42.5 % (36.0-48.0); Hemoglobin 13.8 g/dL (12.0-16.0); Immature Granulocytes Abs Auto 0.02 10^3/uL (0.00-0.03); Immature Granulocytes Pct Auto 0.3 % (0.0-0.5); Lymphocytes Absolute Auto 1.7 10^3/uL (1.2-3.8); Lymphocytes Percent Auto 22.6 % (20.5-60.0); Mean Corpuscular HGB Conc 32.5 g/dL (29.9-35.2); Mean Corpuscular Hemoglobin 31.2 pg (26.7-34.0); Mean Corpuscular Volume 96.2 fL (81.0-99.0); Mean Platelet Volume 9.1 fL (9.5-13.5); Monocytes Absolute Auto 0.7 10^3/uL (0.3-0.8); Monocytes Percent Auto 9.6 % (1.7-12.0); Neutrophils Absolute Auto 4.5 10^3/uL (1.4-6.5); Neutrophils Percent Auto 61.5 % (43.0-75.0); Platelet Count 258 10^3/uL (150-450); Red Blood Count 4.42 10^6/uL (4.20-5.40); Red Cell Distribution Width 12.9 % (11.0-15.0); White Blood Count 7.4 10^3/uL (4.0-11.0)
[2024-03-30 13:50] LABS: Alanine Aminotransferase 51 U/L (14-59); Albumin Globulin Ratio 0.8; Albumin Level 3.3 g/dL (3.4-5.0); Alkaline Phosphatase 112 U/L (46-116); Aspartate Amino Transferase 32 U/L (15-37); Bilirubin Direct 0.1 mg/dL (0.0-0.2); Bilirubin Total 0.7 mg/dL (0.2-1.0); Erythrocyte Sedimentation Rate 41 mm/hr (<=30); Estimated GFR (African America >60 (>=60 mL/min/1.73m^2); Estimated GFR (Non-African Ame 59 (>=60 mL/min/1.73m^2); Globulin 4.2 g/dL; Total Protein 7.5 g/dL (6.4-8.2)
== END 2024-03-30 13:18 | disposition home or self-care (01) ==
LOC: LAB 13:20
PROVIDERS: PCP Nurse Practitioner Family; Visit Provider Internal Medicine Rheumatology
DX: M05.79 Rheumatoid arthritis with rheumatoid factor of multiple sites without organ or systems involvement (principal); Z79.899 Other long term (current) drug therapy
CPT/HCPCS: 36415; 80076; 82565; 85025; 85652

== ENCOUNTER 2024-05-08 15:00 | Outpatient (OUT) | payer BC, SELFPAY ==
--- OUTSIDE RECORDS SUMMARY | 2024-05-08 15:12 | XMS_ITS | CCD ---
Author Organization [facility] Care Team Providers Care Transaction Advisory Services Manager Name Role Phone TERESA DE Attending Unavailable [...] Attending Unavailable SANTINO, TERESA Admitting Unavailable SANTINO, TREESA Consulting Unavailable SANTINO, TERESA Primary Care Unavailable SANTINO, TERESA Primary Care Unavailable AHMED, MOHAMMED Attending Unavailable VALENTEMED, MOHAMMED Admitting Unavailable NAWAF, MOHAMMED Consulting Unavailable Esdras Bonilla Admitting Unavailable Esdras Bonilla Attending Unavailable Lola Hyde Primary Care Physician Santino CAI, Teresa Unavailable Paul Villatoro MD Primary Care Provider [phone] Dolce, Karolina R Attending Unavailable Dolce, Karolina [...] every six hours for pain HYDROcodone-aceta minophen (Ludowici) 5-325 MG tablet Indications: Metatarsal deformity, right Take 1 tablet by mouth every 6 (six) hours if needed for severe pain for up to 5 days 20 tablet 03/14/2024 03/19/2024 Active Problems Active Problems Problem Classification Problem Date Documented Da te Episodic/Chronic Conditions associated with dizziness or vertigo (4 sources) Dizziness and giddiness; Translations: [DIZZINESS AND GIDDINESS] Onset: 06-02-2022 Episodic Other acquired deformities (12 sources) Deformity of metatarsal; Translations: [Unspecified acquired [...] Onset: 07-30-2021 Chronic Other nervous system disorders (11 sources) Mortons neuroma of right foot; Translations: [...] Surgical Pathology Reporton 03-19-2024 [place] [address]- Surgical Pathology Report Collected Date/Time: 03/15/2024 09:30 EST Pathologist: Jason CAI PhD, Wilbert Rangel Received Date/Time: 03/15/2024 13:39 EST Adelaide DPM, Karolina PAREDESM, Karolina R 07 Surgical Pathology Report - [...] and entirely submitted in one cassette. (DC) DC:[facility] Microscopic Description Microscopic examination performed unless gross only specified. This report was transcribed using voice recognition technology and might contain unintended computerized elementary school music teacher errors. Normal [facility] Comment on above: Performed By: #### [id number] #### [facility] [address] [place] [address] GERONIMO Antinuclear Antibodieson 06-22-2022 Antinuclear Abs, IFA Negative Normal . [facility] Comment on above: Result Comment: Nega tive <1:80 Borderline 1:80 Positive >1:80 ICAP nomenclature: AC-0 For more information about Hep-2 cell patterns use ANApatterns.org, the official website for the International Consensus on Antinuclear Antibody (GERONIMO) Patterns (ICAP). Performed at: [facility] [id number] Bench Assembler Electrical: Charlie Arevalo PhD, Phone: [phone] Performed By: #### A DNA, C4, GERONIMO, CH50, C3, LOZOYA #### [facility] , Anti-Lozoya Antibodieson Anti-Lozoya Antibodies <0.2 Normal 0.0-0.9 [facility] Comment on above: Performed By: #### A DNA, C4, GERONIMO, CH50, C3, LOZOYA #### [facility] , Anti-dsDNA(DBL)Abon 06-23-19 Anti-dsDNA(DBL)Ab 1 Normal 0-9 [facility] Comment on above: Result Comment: Nega tive <5 Equivocal 5 - 9 Positive >9 Performed at: [facility] [id number] Bench Assembler Electrical: Charlie Arevalo PhD, Phone: [phone] PERFORMED BY: [facility] [place] [address] PATHOLOGIST ADJUNCT PROFESSOR OF ENGLISH EULALIA OLSEN M.D. Performed By: #### A DNA, C4, GERONIMO, CH50, C3, LOZOYA #### [facility] , C-Reactive Proteinon 023 C-Reactive Protein 1.1 mg/dL High 0.0-0.5 [facility] Comment on above: Result Comment: PERF ORMED BY: [address] [place] [address] PATHOLOGIST ADJUNCT PROFESSOR OF ENGLISH EULALIA OLSEN M.D. Performed By: #### A DNA, C4, GERONIMO, CH50, C3, LOZOYA #### [facility] , Complement C3on 06-22-2022 Complement C3 147 mg/dL Normal 82-167 [facility] Comment on above: Result Comment: Perf ormed at: [address] [id number] Bench Assembler Electrical: Charlie Arevalo PhD, Phone: [phone] Performed By: #### A DNA, C4, GERONIMO, CH50, C3, LOZOYA #### [facility] , Complement C4on 06-22-2022 Complement C4 33 mg/dL Normal 12-38 [facility] Comment on above: Performed By: #### A DNA, C4, GERONIMO, CH50, C3, LOZOYA #### [facility] , Complement Total (CH50)on Complement Total (CH50) 55 Normal >41 [facility] Comment on above: Result Comment: Age [...] determine out of range values. Performed at: [facility] [id number] Bench Assembler Electrical: Charlie Arevalo PhD, Phone: [phone] PERFORMED BY: [address] [place] [address] PATHOLOGIST ADJUNCT PROFESSOR OF ENGLISH EULALIA OLSEN M.D. Performed By: #### A DNA, C4, GERONIMO, CH50, C3, LOZOYA #### [facility] , Complete Blood Count Auto Di ffon 06-22-2022 Basophils (Bld) [#/Vol] 0.1 10*3/uL Normal 0.0-0.2 [facility] Comment on above: Performed By: #### H BCAB, HBSAG, HCV RX PCR, HBSAB #### [facility] , #### ADDONUAPLUS, ESR, CBC, CMP, CRP #### [place] [address] [place] Basophils/100 WBC (Bld) 0.7 % Normal . [facility] Comment on above: Performed By: #### H BCAB, HBSAG, HCV RX PCR, HBSAB #### [facility] , #### ADDONUAPLUS, ESR, CBC, CMP, CRP #### [address] Eosinophils (Bld) [#/Vol] 0.3 10*3/uL Normal 0.0-0.45 [facility] Comment on above: Performed By: #### H BCAB, HBSAG, HCV RX PCR, HBSAB #### [facility] , #### ADDONUAPLUS, ESR, CBC, CMP, CRP #### [address] Eosinophils/100 WBC (Bld) 3.8 % Normal . [facility] Comment on above: Performed By: #### H BCAB, HBSAG, HCV RX PCR, HBSAB #### [facility] , #### ADDONUAPLUS, ESR, CBC, CMP, CRP #### [address] Erythrocyte distribution width (RBC) [Ratio] 13.7 % Normal 11.9-15.3 [facility] Comment on above: Performed By: #### H BCAB, HBSAG, HCV RX PCR, HBSAB #### [facility] , #### ADDONUAPLUS, ESR, CBC, CMP, CRP #### [address] Hematocrit (Bld) [Volume fraction] 39.4 % Normal 34.0-46.4 [facility] Comment on above: Performed By: #### H BCAB, HBSAG, HCV RX PCR, HBSAB #### [facility] , #### ADDONUAPLUS, ESR, CBC, CMP, CRP #### [address] Hemoglobin (Bld) [Mass/Vol] 13.0 g/dL Normal 11.8-15.4 [facility] Comment on above: Performed By: #### H BCAB, HBSAG, HCV RX PCR, HBSAB #### [facility] , #### ADDONUAPLUS, ESR, CBC, CMP, CRP #### [address] Lymphocytes (Bld) [#/Vol] 2.5 10*3/uL Normal 1.00-4.8 [facility] Comment on above: Performed By: #### H BCAB, HBSAG, HCV RX PCR, HBSAB #### [facility] , #### ADDONUAPLUS, ESR, CBC, CMP, CRP #### [address] Lymphocytes/100 WBC (Bld) 35.4 % Normal . [facility] Comment on above: Performed By: #### H BCAB, HBSAG, HCV RX PCR, HBSAB #### [facility] , #### ADDONUAPLUS, ESR, CBC, CMP, CRP #### [address] MCH (RBC) [Entitic mass] 31.3 pg Normal 24.7-34.3 [facility] Comment on above: Performed By: #### H BCAB, HBSAG, HCV RX PCR, HBSAB #### [facility] , #### ADDONUAPLUS, ESR, CBC, CMP, CRP #### [address] MCV (RBC) [Entitic vol] 94.7 fL Normal 80-100 [facility] Comment on above: Performed By: #### H BCAB, HBSAG, HCV RX PCR, HBSAB #### [facility] , #### ADDONUAPLUS, ESR, CBC, CMP, CRP #### [address] Mean Corpuscular HGB Conc 33.1 g/dL Normal 32.0-35.0 [facility] Comment on above: Performed By: #### H BCAB, HBSAG, HCV RX PCR, HBSAB #### [facility] , #### ADDONUAPLUS, ESR, CBC, CMP, CRP #### [address] Monocytes (Bld) [#/Vol] 0.3 10*3/uL Normal 0.0-0.8 [facility] Comment on above: Performed By: #### H BCAB, HBSAG, HCV RX PCR, HBSAB #### [facility] , #### ADDONUAPLUS, ESR, CBC, CMP, CRP #### [address] Monocytes/100 WBC (Bld) 4.7 % Normal . [facility] Comment on above: Performed By: #### H BCAB, HBSAG, HCV RX PCR, HBSAB #### [facility] , #### ADDONUAPLUS, ESR, CBC, CMP, CRP #### [address] Neutrophils (Bld) [#/Vol] 3.9 10*3/uL Normal 1.8-7.7 [facility] Comment on above: Performed By: #### H BCAB, HBSAG, HCV RX PCR, HBSAB #### [facility] , #### ADDONUAPLUS, ESR, CBC, CMP, CRP #### [address] Neutrophils/100 WBC (Bld) 55.4 % Normal . [facility] Comment on above: Performed By: #### H BCAB, HBSAG, HCV RX PCR, HBSAB #### [facility] , #### ADDONUAPLUS, ESR, CBC, CMP, CRP #### [address] NRBC% 0.0 /100{WBC} Normal 0-0.5 [facility] Comment on above: Performed By: #### H BCAB, HBSAG, HCV RX PCR, HBSAB #### [facility] , #### ADDONUAPLUS, ESR, CBC, CMP, CRP #### [address] Platelet mean volume (Bld) [Entitic vol] 7.5 fL Normal 6.3-10.7 [facility] Comment on above: Performed By: #### H BCAB, HBSAG, HCV RX PCR, HBSAB #### [facility] , #### ADDONUAPLUS, ESR, CBC, CMP, CRP #### [address] Platelets (Bld) [#/Vol] 299 10*3/uL Normal 150-450 [facility] Comment on above: Performed By: #### H BCAB, HBSAG, HCV RX PCR, HBSAB #### [facility] , #### ADDONUAPLUS, ESR, CBC, CMP, CRP #### [address] RBC (Bld) [#/Vol] 4.17 10*6/uL Normal 3.60-5.00 [facility] Comment on above: Performed By: #### H BCAB, HBSAG, HCV RX PCR, HBSAB #### [facility] , #### ADDONUAPLUS, ESR, CBC, CMP, CRP #### [facility] [address] WBC (Bld) [#/Vol] 7.1 10*3/uL Normal 3.8-11.6 [facility] Comment on above: Performed By: #### H BCAB, HBSAG, HCV RX PCR, HBSAB #### [facility] , #### ADDONUAPLUS, ESR, CBC, CMP, CRP #### [facility] [address] Comprehensive Metabolic Pane darshan 06-22-2022 Albumin [Mass/Vol] 4.4 g/dL Normal 3.5-5.7 [facility] Comment on above: Performed By: #### A DNA, C4, GERONIMO, CH50, C3, LOZOYA #### [facility] , Albumin/Globulin [Mass ratio] 1.6 {ratio} Normal [facility] Comment on above: Performed By: #### A DNA, C4, GERONIMO, CH50, C3, LOZOYA #### [facility] , ALP [Catalytic activity/Vol] 78 U/L Normal 34-104 [facility] Comment on above: Performed By: #### A DNA, C4, GERONIMO, CH50, C3, LOZOYA #### [facility] , ALT [Catalytic activity/Vol] 21 U/L Normal 7-52 [facility] Comment on above: Performed By: #### A DNA, C4, GERONIMO, CH50, C3, LOZOYA #### [facility] , Anion gap [Moles/Vol] 12.9 mmol/L Normal 6.0-15.0 [facility] Comment on above: Performed By: #### A DNA, C4, GERONIMO, CH50, C3, LOZOYA #### [facility] , AST [Catalytic activity/Vol] 24 U/L Normal 13-39 [facility] Comment on above: Performed By: #### A DNA, C4, GERONIMO, CH50, C3, LOZOYA #### [facility] , Bilirubin [Mass/Vol] 0.9 mg/dL Normal 0.3-1.0 [facility] Comment on above: Performed By: #### A DNA, C4, GERONIMO, CH50, C3, LOZOYA #### [facility] , Calcium [Mass/Vol] 9.0 mg/dL Normal 8.6-10.3 [facility] Comment on above: Performed By: #### A DNA, C4, GERONIMO, CH50, C3, LOZOYA #### [facility] , Chloride [Moles/Vol] 106 mmol/L Normal 98-107 [facility] Comment on above: Performed By: #### A DNA, C4, GERONIMO, CH50, C3, LOZOYA #### [facility] , CO2 [Moles/Vol] 25.2 mmol/L Normal 21.0-31.0 [facility] Comment on above: Performed By: #### A DNA, C4, GERONIMO, CH50, C3, LOZOYA #### [facility] , Creatinine [Mass/Vol] 0.79 mg/dL Normal 0.60-1.20 [facility] Comment on above: Performed By: #### A DNA, C4, GERONIMO, CH50, C3, LOZOYA #### [facility] , GFR/1.73 sq M.predicted MDRD (S/P/Bld) [Vol rate/Area] mL/min/{1.73_m2} [facility] Comment on above: Performed By: #### A DNA, C4, GERONIMO, CH50, C3, LOZOYA #### [facility] , Globulin (S) [Mass/Vol] 2.8 g/dL [facility] Comment on above: Performed By: #### A DNA, C4, GERONIMO, CH50, C3, LOZOYA #### [facility] , Glucose [Mass/Vol] 97 mg/dL Normal 70-100 [facility] Comment on above: Result Comment: [place] om Glucose Reference Range is dependent on time and content of last meal. Glucose of more than 200 mg/dL in a nonstressed, ambulatory subject supports the diagnosis of Diabetes Mellitus. ADA recommended reference range Performed By: #### A DNA, C4, GERONIMO, CH50, C3, LOZOYA #### [facility] , Potassium [Moles/Vol] 4.1 mmol/L Normal 3.5-5.1 [facility] Comment on above: Performed By: #### A DNA, C4, GERONIMO, CH50, C3, LOZOYA #### [facility] , Protein [Mass/Vol] 7.2 g/dL Normal 6.4-8.9 [facility] Comment on above: Performed By: #### A DNA, C4, GERONIMO, CH50, C3, LOZOYA #### [facility] , Sodium [Moles/Vol] 140 mmol/L Normal 136-145 [facility] Comment on above: Performed By: #### A DNA, C4, GERONIMO, CH50, C3, LOZOYA #### [facility] , Urea nitrogen [Mass/Vol] 12 mg/dL Normal 7-25 [facility] Comment on above: Performed By: #### A DNA, C4, GERONIMO, CH50, C3, LOZOYA #### [facility] , Dipstick and Microscopicon 0 - Appearance (U) Clear Normal Clear [facility] Comment on above: Order Comment: Name Collection Type:: Clean-Voided Midstream Performed By: #### H BCAB, HBSAG, HCV RX PCR, HBSAB #### [facility] , #### ADDONUAPLUS, ESR, CBC, CMP, CRP #### [facility] [address] Bacteria,Urine 1+ High None Seen [facility] Comment on above: Order Comment: Name Collection Type:: Clean-Voided Midstream Performed By: #### H BCAB, HBSAG, HCV RX PCR, HBSAB #### [facility] , #### ADDONUAPLUS, ESR, CBC, CMP, CRP #### [address] Bilirubin,Urine Negative Normal Negative [facility] Comment on above: Order Comment: Name Collection Type:: Clean-Voided Midstream Performed By: #### H BCAB, HBSAG, HCV RX PCR, HBSAB #### [facility] , #### ADDONUAPLUS, ESR, CBC, CMP, CRP #### [address] Color (U) Yellow Normal Yellow [facility] Comment on above: Order Comment: Name Collection Type:: Clean-Voided Midstream Performed By: #### H BCAB, HBSAG, HCV RX PCR, HBSAB #### [facility] , #### ADDONUAPLUS, ESR, CBC, CMP, CRP #### [address] Glucose Ql (U) Normal Normal Normal [facility] Comment on above: Order Comment: Name Collection Type:: Clean-Voided Midstream Performed By: #### H BCAB, HBSAG, HCV RX PCR, HBSAB #### [facility] , #### ADDONUAPLUS, ESR, CBC, CMP, CRP #### [address] Hyaline Casts,Urine 0-8 Normal 0-8 [facility] Comment on above: Order Comment: Name Collection Type:: Clean-Voided Midstream Result Comment: PERF ORMED BY: [place] [address] PATHOLOGIST ADJUNCT PROFESSOR OF ENGLISH EULALIA OLSEN M.D. Performed By: #### H BCAB, HBSAG, HCV RX PCR, HBSAB #### [facility] , #### ADDONUAPLUS, ESR, CBC, CMP, CRP #### [address] Ketones Ql (U) Negative Normal Negative [facility] Comment on above: Order Comment: Name Collection Type:: Clean-Voided Midstream Performed By: #### H BCAB, HBSAG, HCV RX PCR, HBSAB #### [facility] , #### ADDONUAPLUS, ESR, CBC, CMP, CRP #### [facility] [address] [place] [address] Leukocyte esterase Test strip Ql (U) Negative Normal Negative [facility] Comment on above: Order Comment: Name Collection Type:: Clean-Voided Midstream Performed By: #### H BCAB, HBSAG, HCV RX PCR, HBSAB #### [facility] , #### ADDONUAPLUS, ESR, CBC, CMP, CRP #### [facility] [address] [place] [address] Nitrite,Urine Negative Normal Negative [facility] Comment on above: Order Comment: Name Collection Type:: Clean-Voided Midstream Performed By: #### H BCAB, HBSAG, HCV RX PCR, HBSAB #### [facility] , #### ADDONUAPLUS, ESR, CBC, CMP, CRP #### [facility] [address] [place] [address] Occult Blood,Urine Negative Normal Negative [facility] Comment on above: Order Comment: Name Collection Type:: Clean-Voided Midstream Performed By: #### H BCAB, HBSAG, HCV RX PCR, HBSAB #### [facility] , #### ADDONUAPLUS, ESR, CBC, CMP, CRP #### [facility] [address] [place] [address] pH (U) 5.5 [pH] Normal 5.0-9.0 [facility] Comment on above: Order Comment: Name Collection Type:: Clean-Voided Midstream Performed By: #### H BCAB, HBSAG, HCV RX PCR, HBSAB #### [facility] , #### ADDONUAPLUS, ESR, CBC, CMP, CRP #### [facility] [address] Protein,Urine Negative Normal Negative [facility] Comment on above: Order Comment: Name Collection Type:: Clean-Voided Midstream Performed By: #### H BCAB, HBSAG, HCV RX PCR, HBSAB #### [facility] , #### ADDONUAPLUS, ESR, CBC, CMP, CRP #### [facility] [address] [place] [address] RBC,Urine 3-4 Normal 0-4 [facility] Comment on above: Order Comment: Name Collection Type:: Clean-Voided Midstream Performed By: #### H BCAB, HBSAG, HCV RX PCR, HBSAB #### [facility] , #### ADDONUAPLUS, ESR, CBC, CMP, CRP #### [facility] [address] [place] [address] Specificy [place],Urine 1.021 Normal 1.001-1.030 [facility] Comment on above: Order Comment: Name Collection Type:: Clean-Voided Midstream Performed By: #### H BCAB, HBSAG, HCV RX PCR, HBSAB #### [facility] , #### ADDONUAPLUS, ESR, CBC, CMP, CRP #### [facility] [address] [place] [address] Squamous Epithelial Cell,Urine 5-9 High 0-2 [facility] Comment on above: Order Comment: Name Collection Type:: Clean-Voided Midstream Performed By: #### H BCAB, HBSAG, HCV RX PCR, HBSAB #### [facility] , #### ADDONUAPLUS, ESR, CBC, CMP, CRP #### [facility] [address] [place] [address] Urobilinogen,Urine Normal Normal Normal [facility] Comment on above: Order Comment: Name Collection Type:: Clean-Voided Midstream Performed By: #### H BCAB, HBSAG, HCV RX PCR, HBSAB #### [facility] , #### ADDONUAPLUS, ESR, CBC, CMP, CRP #### [facility] [address] WBC,Urine 5-9 High 0-4 [facility] Comment on above: Order Comment: Name Collection Type:: Clean-Voided Midstream Performed By: #### H BCAB, HBSAG, HCV RX PCR, HBSAB #### [facility] , #### ADDONUAPLUS, ESR, CBC, CMP, CRP #### [facility] [address] Erythrocyte Sedimentation Ra raymond 06-22-2022 ESR (Bld) [Velocity] 36 mm/h High 0-29 [facility] Comment on above: Result Comment: PERF ORMED BY: [place] [address] PATHOLOGIST ADJUNCT PROFESSOR OF ENGLISH EULALIA OLSEN M.D. Performed By: #### A DNA, C4, GERONIMO, CH50, C3, LOZOYA #### [facility] , Hep C Ab wRfx to Qnt PCRon 0 06-22-2022 Hepatitis C Virus Antibody Non-Reactive Normal Non Reactive [facility] Comment on above: Performed By: #### A DNA, C4, GERONIMO, CH50, C3, LOZOYA #### [facility] , Interpretation Hepatitis C Normal . [facility] Comment on above: Result Comment: Not infected with HCV unless early or acute infection is suspected (which may be delayed in an immunocompromised individual), or other evidence exists to indicate HCV infection. Performed By: #### A DNA, C4, EGRONIMO, CH50, C3, LOZOYA #### [facility] , Hepatitis B Core Antibodyon 06-22-2022 Hepatitis B Core Antibody Negative Normal Negative [facility] Comment on above: Result Comment: Perf ormed at: - [facility] [address] [id number] Bench Assembler Electrical: Charlie Arevalo PhD, Phone: [phone] Performed By: #### A DNA, C4, GERONIMO, CH50, C3, LOZOYA #### [facility] , Hepatitis B Surface Antibody on 06-22-2022 Hepatitis B Surface Antibody Non-Reactive Normal . [facility] Comment on above: Result Comment: Non Reactive: Inconsistent with immunity, less than 10 mIU/mL Reactive: Consistent with immunity, greater than 9.9 mIU/mL Performed By: #### A DNA, C4, GERONIMO, CH50, C3, LOZOYA #### [facility] , Hepatitis B Surface Antigeno n 06-22-2022 HBsAg Screen Negative Normal Negative [facility] Comment on above: Result Comment: PERF ORMED BY: [place] [address] PATHOLOGIST ADJUNCT PROFESSOR OF ENGLISH EULALIA OLSEN M.D. Performed By: #### A DNA, C4, GERONIMO, CH50, C3, LOZOYA #### [facility] , XR chest 2V*on 06-22-2022 XR chest 2V* [facility] [place] [address] XRay Report Signed Patient: Cielo Ray MR#: [id number] 66 : 1965 Acct:[id number] Age/Sex: 56 / F ADM Date: 06/22/22 Loc: ICXD Room: Type: [facility] Attending Dr: Esdras Bonilla MD Copies to: [...] Vitale Jr., D.O.06/22/2022 4:08 PM Dictation Location: [place] [address] Transcribed By: [facility] 06/22/22 1608 Dictated By: Cr Vitale Jr, DO 06/22/22 1608 Signed By: 06/22/22 1608 [facility] XR hand BI 2Von 06-22-2022 XR hand BI 2V [facility] Main [place] [address] [place] [address] XRay Report Signed Patient: Cielo Ray MR#: [id number] 66 : 1965 Acct:[id number] Age/Sex: 56 / F ADM Date: 06/22/22 Loc: ICXD Room: Type: [facility] Attending Dr: Esdras Bonilla MD Copies to: [...] Vitale Jr., D.OHong06/22/2022 4:12 PM Dictation Location: [place] [address] Transcribed By: [facility] 06/22/22 161 Dictated By: Cr Vitale Jr, DO 06/22/22 1608 Signed By: 06/22/22 1612 [facility] VC CONSULT FOLLOWUPon 2021 VC CONSULT FOLLOWUP Patient: JEAN PIERRE RAY Exam Date: 02/02/2022 : 1965 Gender:F Ordering : DR KEILA DE LA FUENTE M.D. Admission #: [id number] Family : Order #: [id number] CLICK HERE TO VIEW EXAM RADIOLOGY REPORT [...] Perla M.D. on 02/02/2022 at 15:55 Normal [facility] VC EXT VENOUS LT LIMITEDon 1 04-05-2021 VC EXT VENOUS LT LIMITED Patient: CIELO RAY Exam Date: 02/02/2022 : 1965 Gender:F Ordering : DR KEILA DE LA FUENTE M.D. Admission #: [id number] Family : Order #: [id number] CLICK HERE TO VIEW EXAM RADIOLOGY REPORT [...] Perla M.D. on 02/02/2022 at 15:51 Normal [facility] VC ENDOVENOUS ABL 1ST V LTon 01-26-2022 VC ENDOVENOUS ABL 1ST V LT Patient: CIELO RAY Exam Date: 01/26/2022 : 1965 Gender:F Ordering : DR KEILA DE LA FUENTE M.D. Admission #: [id number] Family : Order #: [id number] CLICK HERE TO VIEW EXAM RADIOLOGY REPORT [...] consent was obtained by me and Dameon neri. Time out procedure was [...] left small saphenous vein. Dictated by: Keila DeL a Fuente MD on 01/26/2022 at 16:05 Approved by: Keila De La Fuente MD on 01/26/2022 at 16:08 Normal [facility] ALBUMINon 01-14-2022 Albumin [Mass/Vol] 3.6 g/dL Normal 3.4-5.0 [facility] Comment on above: Performed By: #### C JENELLE, ALB, ALT, CRP ####[facility] [address] [place] [address]Dr. Wilbert Gomez CBC AUTO DIFFon 01-14-2022 BASO # 0.0 103/ul Normal 0.0-0.1 [facility] Comment on above: Performed By: #### C BC #### [facility] Laboratory [address] [place] [address] Dr. Wilbert Gomez Basophils/100 WBC (Bld) 0.5 % Normal 0.2-2.0 [facility] Comment on above: Performed By: #### C BC #### [facility] Laboratory [address] [place] [address] [address] Wilbert Gomez EO # 0.3 103/ul Normal 0.0-0.7 [facility] Comment on above: Performed By: #### C BC #### [facility] Laboratory [address] [address] [address] Wiblert Gomez Eosinophils/100 WBC (Bld) 4.2 % Normal 0.9-7.0 [facility] Comment on above: Performed By: #### C BC #### [facility] Laboratory [address] [address] [address] Wilbert Gomez Erythrocyte distribution width (RBC) [Ratio] 13.6 % Normal 11.0-15.0 [facility] Comment on above: Performed By: #### C BC #### [facility] Laboratory [address] [place] [address] Dr. Wilbert Gomez Hematocrit (Bld) [Volume fraction] 36.8 % Normal 36.0-48.0 [facility] Comment on above: Performed By: #### C BC #### [facility] Laboratory [address] [place] [address] Dr. Wilbert Gomez Hemoglobin (Bld) [Mass/Vol] 12.1 g/dL Normal 12.0-16.0 [facility] Comment on above: Performed By: #### C BC #### [facility] [facility] [address] [place] [address] Dr. Wilbert Gomez IG # 0.02 10e3/ul Normal 0.00-0.03 [facility] Comment on above: Performed By: #### C BC #### [facility] [address] [place] [address] Dr. Wilbert Gomez IG % 0.3 % Normal 0.0-0.5 [facility] Comment on above: Performed By: #### C BC #### [facility] [address] [place] [address] Dr. Wilbert Gomez LYMPH # 2.6 103/ul Normal 1.2-3.8 [facility] Comment on above: Performed By: #### C BC #### [facility] [address] [place] [address] Dr. Wilbert Gomez Lymphocytes/100 WBC (Bld) 35.7 % Normal 20.5-60.0 [facility] Comment on above: Performed By: #### C BC #### [facility] [address] [place] [address] Dr. Wilbert Gomez MANUAL DIFF REQ NO Normal [facility] Comment on above: Performed By: #### C BC #### [facility] [address] [place] [address] Dr. Wilbert Gomez MCH (RBC) [Entitic mass] 31.7 pg Normal 26.7-34.0 [facility] Comment on above: Performed By: #### C BC #### [facility] [address] [place] [address] Dr. Wilbert Gomez MCHC (RBC) [Mass/Vol] 32.9 g/dL Normal 29.9-35.2 [facility] Comment on above: Performed By: #### C BC #### [facility] [address] [place] [address] Dr. Wilbert Gomez MCV (RBC) [Entitic vol] 96.3 fL Normal 81.0-99.0 [facility] Comment on above: Performed By: #### C BC #### [facility] [address] [place] [address] Dr. Wilbert Gomez MONO # 0.5 103/ul Normal 0.3-0.8 [facility] Comment on above: Performed By: #### C BC #### [facility] [address] [place] [address] Dr. Wilbert Gomez Monocytes/100 WBC (Bld) 6.2 % Normal 1.7-12.0 [facility] Comment on above: Performed By: #### C BC #### [facility] [address] [place] [address] Dr. Wilbert Gomez NEUT # 3.9 103/ul Normal 1.4-6.5 [facility] Comment on above: Performed By: #### C BC #### [facility] [address] [place] [address] Dr. Wilbert Gomez Neutrophils/100 WBC (Bld) 53.1 % Normal 43.0-75.0 [facility] Comment on above: Performed By: #### C BC #### [facility] [address] [place] [address] Dr. Wilbert Gomez Platelet mean volume (Bld) [Entitic vol] 8.9 fL Critically low 9.5-13.5 [facility] Comment on above: Performed By: #### C BC #### [facility] [address] [address] [address] Wilbert Gomez PLT 275 103/ul Normal 150-450 [facility] Comment on above: Performed By: #### C BC #### [facility] [address] [address] [address] Wilbert Gomez RBC 3.82 106/ul Critically low 4.20-5.40 [facility] Comment on above: Performed By: #### C BC #### [facility] [address] [address] [address] Wilbert Gomez WBC 7.3 103/ul Normal 4.0-11.0 [facility] Comment on above: Performed By: #### C BC #### [facility] [address] [address] [address] Wilbert Gomez CREATININEon 01-14-2022 Creatinine [Mass/Vol] 0.79 mg/dL Normal 0.55-1.02 [facility] Comment on above: Performed By: #### C JENELLE, ALB, ALT, CRP ####[facility] [address] [address]Dr. Wilbert Gomez EGFR-AF TAJIK >60 Normal >=60 [facility] Comment on above: Performed By: #### C JENELLE, ALB, ALT, CRP ####[facility] [address] [id number]. Wilbert Gomez EGFR-NON AF TAJIK >60 Normal >=60 [facility] Comment on above: Performed By: #### C JENELLE, ALB, ALT, CRP ####[facility] [address] [id number] Gomez CRPon 01-14-2022 CRP 1.1 mg/dL Critically high <=1.0 [facility] Comment on above: Performed By: #### C JENELLE, ALB, ALT, CRP ####[facility] [address] [address]DrHong Gomez SED RATE WESTERGRENon 2021 SED RATE 37 mm/hr Critically high <=30 [facility] Comment on above: Performed By: #### C BC #### [facility] [address] [place], [place] [address] Dr. Wilbert Gomez [facility] 01-14-2022 ALT [Catalytic activity/Vol] 30 U/L Normal 14-59 [facility] Comment on above: Performed By: #### C JENELLE, ALB, ALT, CRP ####[facility] [address] [place], [place] [address]PcDr. Wilbert Gomez VC CONSULT FOLLOWUPon 2021 VC CONSULT FOLLOWUP Patient: JEAN PIERRE RAY Exam Date: 12/29/2021 : 1965 Gender:F Ordering : DR KEILA DE LA FUENTE M.D. Admission #: [id number] Family : Order #: [id number] CLICK HERE TO VIEW EXAM RADIOLOGY REPORT [...] MD on 12/29/2021 at 15:41 Normal [facility] VC EXT VENOUS LT LIMITEDon 1 1-15-2022 VC EXT VENOUS LT LIMITED Patient: CIELO RAY Exam Date: 12/29/2021 : 1965 Gender:F Ordering : DR KEILA DE LA FUENTE M.D. Admission #: [id number] Family : Order #: [id number] CLICK HERE TO VIEW EXAM RADIOLOGY REPORT [...] Fuente MD on 12/29/2021 at 15:34 Normal [facility] VC ENDOVENOUS ABL 1ST V LTon 12-22-2021 VC ENDOVENOUS ABL 1ST V LT Patient: CIELO RAY Exam Date: 12/22/2021 : 1965 Gender:F Ordering : DR KEILA DE LA FUENTE M.D. Admission #: [id number] Family : Order #: [id number] CLICK HERE TO VIEW EXAM RADIOLOGY REPORT [...] MD on 12/22/2021 at 16:10 Normal [facility] VC COMP CONSULTATIONon 11-30 VC COMP CONSULTATION Patient: KARINA RAY Exam Date: 11/30/2021 : 1965 Gender:F Ordering : DR KEILA DE LA FUENTE M.D. Admission #: [id number] Family : Order #: [id number] CLICK HERE TO VIEW EXAM RADIOLOGY REPORT [...] great saphenous and small saphenous veins. Bilateral microsoft systems engineer veins and incompetent branch saphenous varicosities. [...] left small saphenous veins, left and right microsoft systems engineer veins. 4. Microfoam chemical ablation of dilated, incompetent branch saphenous varicosities within right and left lower extremities Nurse notes, history and physical were reviewed and confirmed, see attached forms. The nurse was present throughout the physical exam and consultation Dictated by: Hayden Perla M.D. on 12/01/2021 at 08:06 Approved by: Hayden Perla M.D. on 12/01/2021 at 09:12 Normal [facility] VC VENOUS REFLUX MICHELLE LMTon 1 VC VENOUS REFLUX MICHELLE LMT Patient: CIELO RAY Exam Date: 11/30/2021 : 1965 Gender:F Ordering : DR KEILA DE LA FUENTE M.D. Admission #: [id number] Family : Order #: [id number] CLICK HERE TO VIEW EXAM RADIOLOGY REPORT [...] treated GSV. Incomptent varicose vein associated with microsoft systems engineer distal thigh measures 6.2 mm with [...] thrombus. Compressibility: Normal. Flow: Deep venous reflux. High Scaler: Two medial/distal lower leg perfs measures 3.9 [...] and small saphenous veins. 2. Dilated, incompetent microsoft systems engineer veins and branch saphenous varicosities bilaterally. 3. Consultation for endovenous ablation is recommended. Dictated by: Hayden Perla M.D. on 11/30/2021 at 15:51 Approved by: Hayden Perla M.D. on 11/30/2021 at 15:53 Normal [facility] INSULINon 10-09-2021 Insulin 11.9 uIU/mL Normal 2.6-24.9 [facility] Comment on above: Performed By: #### I NSULIN ####[facility] [address] [address]Dr. Wilbert Gomez T4, T3U, FTI LABCORPon 10-09 Free Thyroxine Index 2.1 Normal 1.2-4.9 [facility] Comment on above: Performed By: #### T HYLC ####[facility] [address] [address]Dr. Justinegonzalo Gomez T3 Uptake 29 % Normal 24-39 [facility] Comment on above: Performed By: #### T HYLC ####[facility] [address] [address]Dr. Wilbert Gomez T4 [Mass/Vol] 7.4 ug/dL Normal 4.5-12.[address] [facility] Comment on above: Performed By: #### T HYLC ####[facility] [address] [id number]. Wilbert Gomez GLYCOHEMOGLOBIN A1Con 2021 ADA RECOMMENDATION SEE BELOW Normal [facility] Comment on above: Result Comment: ADA RECOMMENDED LIMIT 4.0 - 6.0 ADA THERAPEUTIC TARGET < 7.0 ACTION SUGGESTED > 7.0 Performed By: #### A 1C ####[facility] [address] [address]Dr. Justinegonzalo Gomez Glucose [Mass/Vol] 111 mg/dL Normal [facility] Comment on above: Performed By: #### A 1C ####[facility] [address] [address]Dr. Justinegonzalo Gomez HbA1c (Bld) [Mass fraction] 5.5 % Normal 4.5-6.2 [facility] Comment on above: Performed By: #### A 1C ####[facility] [address] [place], [place] [address]XfHong Gomez IRONon 10-08-2021 Iron [Mass/Vol] 67.0 ug/dL Normal 50.0-170.[address] [facility] Comment on above: Performed By: #### I SOLA #### [facility] [address] [place], [place] [address] Dr. Wilbert Gomez LIPID PROFILEon 10-08-2021 CHOL-HDL RATIO NORM SEE BELOW Normal [facility] Comment on above: Result Comment: 3.3 - 4.4 LOW RISK 4.4 - 7.1 AVERAGE RISK 7.1 - 11.0 MODERATE RISK >11.0 HIGH RISK Performed By: #### L IPID, TSH, CMP ####[facility] [address] [place], [place] [address]Nf. Wilbert Gomez Cholesterol [Mass/Vol] 205 mg/dL Critically high <=200 [facility] Comment on above: Performed By: #### L IPID, TSH, CMP ####[facility] [address] [id number]. Wilbert Gomez Cholesterol in HDL [Mass/Vol] 81 mg/dL Critically high 40-60 [facility] Comment on above: Performed By: #### L IPID, TSH, CMP ####[facility] [address] [place], [place] [address]Do. Wilbert Gomez Cholesterol in LDL [Mass/Vol] 108.0 mg/dL Normal [facility] Comment on above: Performed By: #### L IPID, TSH, CMP ####[facility] [address] [place], [place] [address]Ia. Wilbert Gomez Cholesterol.total/Ch olesterol in HDL [Mass ratio] 2.5 {ratio} Normal [facility] Comment on above: Performed By: #### L IPID, TSH, CMP ####[facility] [address] [place], [place] [address]Bp. Wilbert Gomez HDL NORMAL > or = 60 mg/dl - LO W CARDIOVASCULAR RISK <40 mg/dl - HIGH CARDIOVASCULAR RISK Normal [facility] Comment on above: Performed By: #### L IPID, TSH, CMP ####[facility] [address] [address]Dr. Wilbert Gomez LDL CALC NORMAL SEE BELOW Normal [facility] Comment on above: Result Comment: <100 mg/dl OPTIMAL 100 - 129 mg/dl NEAR OR ABOVE OPTIMAL 130 - 159 mg/dl BORDERLINE HIGH 160 - 189 mg/dl HIGH >190 mg/dl VERY HIGH Performed By: #### L IPID, TSH, CMP ####[facility] [address] [address]Dr. Wilbert Gomez Triglyceride [Mass/Vol] 80 mg/dL Normal <=150 [facility] Comment on above: Performed By: #### L IPID, TSH, CMP ####[facility] [address] [address]Dr. Wilbert Gomez VLDL CALC 16.0 mg/dL Normal [facility] Comment on above: Performed By: #### L IPID, TSH, CMP ####[facility] [address] [address]Dr. Wilbert Gomez PROF 14(COMP METB)on 022 Albumin [Mass/Vol] 3.6 g/dL Normal 3.4-5.0 [facility] Comment on above: Performed By: #### L IPID, TSH, CMP ####[facility] [address] [address]Dr. Wilbert Gomez Albumin/Globulin [Mass ratio] 1.0 {ratio} Normal [facility] Comment on above: Performed By: #### L IPID, TSH, CMP ####[facility] [address] [address]Dr. Wilbert Gomez ALP [Catalytic activity/Vol] 86 U/L Normal 46-116 [facility] Comment on above: Performed By: #### L IPID, TSH, CMP ####[facility] [address] [address]Dr. Wilbert Gomez ALT [Catalytic activity/Vol] 27 U/L Normal 14-59 [facility] Comment on above: Performed By: #### L IPID, TSH, CMP ####[facility] [address] [address]Dr. Wilbert Gomez Anion gap [Moles/Vol] 12.1 mmol/L Normal [facility] Comment on above: Performed By: #### L IPID, TSH, CMP ####[facility] [address] [address]Dr. Wilbert Gomez AST [Catalytic activity/Vol] 23 U/L Normal 15-37 [facility] Comment on above: Performed By: #### L IPID, TSH, CMP ####[facility] [address] [address]Dr. Wilbert Gomez Bilirubin [Mass/Vol] 0.6 mg/dL Normal 0.2-1.0 [facility] Comment on above: Performed By: #### L IPID, TSH, CMP ####[facility] [address] [place], [place] [address]Dr. Wilbert Gomez Calcium [Mass/Vol] 8.7 mg/dL Normal 8.5-10.1 [facility] Comment on above: Performed By: #### L IPID, TSH, CMP ####[facility] [address] [place], [place] [address]Dr. Wilbert Gomez Chloride [Moles/Vol] 104 mmol/L Normal 98-107 [facility] Comment on above: Performed By: #### L IPID, TSH, CMP ####[facility] [address] [address]Dr. Wilbert Gomez CO2 [Moles/Vol] 26.8 mmol/L Normal 21.0-32.0 [facility] Comment on above: Performed By: #### L IPID, TSH, CMP ####[facility] [address] [place], [place] [address]Dr. Wilbert Gomez Creatinine [Mass/Vol] 0.85 mg/dL Normal 0.55-1.02 [facility] Comment on above: Performed By: #### L IPID, TSH, CMP ####[facility] [address] [place], [place] [address]Dr. Wilbert Gomez EGFR-AF TAJIK >60 Normal >=60 [facility] Comment on above: Performed By: #### L IPID, TSH, CMP ####[facility] [address] [address]Dr. Wilbert Gomez EGFR-NON AF TAJIK >60 Normal >=60 [facility] Comment on above: Performed By: #### L IPID, TSH, CMP ####[facility] [address] [address]Dr. Wilbert Gomez Globulin (S) [Mass/Vol] 3.7 g/dL Normal [facility] Comment on above: Performed By: #### L IPID, TSH, CMP ####[facility] [address] [address]Dr. Wilbert Gomez Glucose [Mass/Vol] 92 mg/dL Normal 74-106 [facility] Comment on above: Performed By: #### L IPID, TSH, CMP ####[facility] [address] [address]Dr. Wilbert Gomez Potassium [Moles/Vol] 3.9 mmol/L Normal 3.5-5.1 [facility] Comment on above: Performed By: #### L IPID, TSH, CMP ####[facility] [address] [address]Dr. Wilbert Gomez Protein [Mass/Vol] 7.3 g/dL Normal 6.4-8.2 [facility] Comment on above: Performed By: #### L IPID, TSH, CMP ####[facility] [address] [address]Dr. Wilbert Gomez Sodium [Moles/Vol] 139 mmol/L Normal 136-145 [facility] Comment on above: Performed By: #### L IPID, TSH, CMP ####[facility] [address] [address]Dr. Wilbert Gomez Urea nitrogen [Mass/Vol] 10.0 mg/dL Normal 7.0-18.0 [facility] Comment on above: Performed By: #### L IPID, TSH, CMP ####[facility] [address] [id number] Gomez Urea nitrogen/Creatinine [Mass ratio] 11.8 mg/mg Normal [facility] Comment on above: Performed By: #### L IPID, TSH, CMP ####[facility] [address] [address]Dr. Wilbert Gomez TSHon 10-08-2021 TSH 0.731 uIU/mL Normal 0.358-3.740 [facility] Comment on above: Performed By: #### L IPID, TSH, CMP ####[facility] [address] [address]DrHong Gomez ALBUMINon 07-30-2021 Albumin [Mass/Vol] 3.8 g/dL Normal 3.4-5.0 [facility] Comment on above: Performed By: #### C JENELLE, ALT, CRP, ALB #### [facility] [address] [place] [address] Dr. Wilbert Gomez CBC AUTO DIFFon 07-30-2021 BASO # 0.0 103/ul Normal 0.0-0.1 [facility] Comment on above: Performed By: #### C BC #### [facility] [address] [place] [address] Dr. Wilbert Gomez Basophils/100 WBC (Bld) 0.6 % Normal 0.2-2.0 [facility] Comment on above: Performed By: #### C BC #### [facility] [address] [place] [address] Dr. Wilbert Gomez EO # 0.2 103/ul Normal 0.0-0.7 [facility] Comment on above: Performed By: #### C BC #### [facility] [address] [place] [address] Dr. Wilbert Gomez Eosinophils/100 WBC (Bld) 4.1 % Normal 0.9-7.0 [facility] Comment on above: Performed By: #### C BC #### [facility] [address] [place] [address] Dr. Wilbert Gomez Erythrocyte distribution width (RBC) [Ratio] 14.0 % Normal 11.0-15.0 [facility] Comment on above: Performed By: #### C BC #### [facility] [address] [place] [address] Dr. Wilbert Gomez Hematocrit (Bld) [Volume fraction] 37.4 % Normal 36.0-48.0 [facility] Comment on above: Performed By: #### C BC #### [facility] [address] [place] [address] Dr. Wilbert Gomez Hemoglobin (Bld) [Mass/Vol] 12.2 g/dL Normal 12.0-16.0 [facility] Comment on above: Performed By: #### C BC #### [facility] [address] [place] [address] Dr. Wilbert Gomez IG # 0.01 10e3/ul Normal 0.00-0.03 [facility] Comment on above: Performed By: #### C BC #### [facility] [address] [place] [address] Dr. Wilbert Gomez IG % 0.2 % Normal 0.0-0.5 [facility] Comment on above: Performed By: #### C BC #### [facility] [address] [place] [address] Dr. Wilbert Gomez LYMPH # 1.6 103/ul Normal 1.2-3.8 [facility] Comment on above: Performed By: #### C BC #### [facility] [address] [place] [address] Dr. Wilbert Gomez Lymphocytes/100 WBC (Bld) 33.4 % Normal 20.5-60.0 [facility] Comment on above: Performed By: #### C BC #### [facility] [address] [place] [address] Dr. Wilbert Gomez MANUAL DIFF REQ NO Normal [facility] Comment on above: Performed By: #### C BC #### [facility] [address] [place] [address] Dr. Wilbert Gomez MCH (RBC) [Entitic mass] 31.9 pg Normal 26.7-34.0 [facility] Comment on above: Performed By: #### C BC #### [facility] [address] [place] [address] Dr. Wilbert Gomez MCHC (RBC) [Mass/Vol] 32.6 g/dL Normal 29.9-35.2 [facility] Comment on above: Performed By: #### C BC #### [facility] [address] [place] [address] Dr. Wilbert Gomez MCV (RBC) [Entitic vol] 97.7 fL Normal 81.0-99.0 [facility] Comment on above: Performed By: #### C BC #### [facility] [address] [place] [address] Dr. Wilbert Gomez MONO # 0.5 103/ul Normal 0.3-0.8 [facility] Comment on above: Performed By: #### C BC #### [facility] [address] [place] [address] Dr. Wilbert Gomez Monocytes/100 WBC (Bld) 11.0 % Normal 1.7-12.0 [facility] Comment on above: Performed By: #### C BC #### [facility] [address] [place] [address] Dr. Wilbert Gomez NEUT # 2.4 103/ul Normal 1.4-6.5 [facility] Comment on above: Performed By: #### C BC #### [facility] [address] [place] [address] Dr. Wilbert Gomez Neutrophils/100 WBC (Bld) 50.7 % Normal 43.0-75.0 [facility] Comment on above: Performed By: #### C BC #### [facility] [address] [place] [address] Dr. Wilbert Gomez Platelet mean volume (Bld) [Entitic vol] 8.8 fL Critically low 9.5-13.5 [facility] Comment on above: Performed By: #### C BC #### [facility] [address] [place] [address] Dr. Wilbert Gomez PLT 228 103/ul Normal 150-450 [facility] Comment on above: Performed By: #### C BC #### [facility] [address] [address] [address] Wilbert Gomez RBC 3.83 106/ul Critically low 4.20-5.40 [facility] Comment on above: Performed By: #### C BC #### [facility] [address] [place] [address] Dr. Wilbert Gomez WBC 4.8 103/ul Normal 4.0-11.0 [facility] Comment on above: Performed By: #### C BC #### [facility] [address] [place] [address] Dr. Wilbert Gomez CREATININEon 07-30-2021 Creatinine [Mass/Vol] 0.87 mg/dL Normal 0.55-1.02 [facility] Comment on above: Performed By: #### C JENELLE, ALT, CRP, ALB #### [facility] [address] [place] [address] Dr. Wilbert Gomez EGFR-AF TAJIK >60 Normal >=60 [facility] Comment on above: Performed By: #### C JENELLE, ALT, CRP, ALB #### [facility] [address] [place] [address] Dr. Wilbert Gomez EGFR-NON AF TAJIK >60 Normal >=60 [facility] Comment on above: Performed By: #### C JENELLE, ALT, CRP, ALB #### [facility] [address] [place] [address] Dr. Wilbert Gomez CRPon 07-30-2021 CRP 1.5 mg/dL Critically high <=1.0 [facility] Comment on above: Performed By: #### C JENELLE, ALT, CRP, ALB #### [facility] [address] [place] [address] Dr. Wilbert Gomez SED RATE GLENHAMERGREN 2021 SED RATE 14 mm/hr Normal <=30 [facility] Comment on above: Performed By: #### S EDR #### [facility] [address] [place] [address] Dr. Wilbert Gomez [facility] 07-30-2021 ALT [Catalytic activity/Vol] 38 U/L Normal 14-59 [facility] Comment on above: Performed By: #### C JENELLE, ALT, CRP, ALB #### [facility] [address] [address] [address] Wilbert Gomez MG MAMM SCREEN 3D MICHELLE CADon 07-16-2021 MG MAMM SCREEN 3D MICHELLE CAD Patient: CIELO RAY Exam Date: 07/16/2021 : 1965 Gender:F Ordering : TERESA DE [facility] Admission #: [id number] Family : Order #: [id number] CLICK HERE TO VIEW EXAM RADIOLOGY REPORT [...] breast cancer at age 55. LOCATION: The [facility] BREAST COMPOSITION: Heterogeneously dense,which may obscure small [...] M.D. on 07/17/2021 at 09:49 Normal The [facility] Vital Signs Date Time Vital Sign Value Performing Clinician Matias bell 04-17-2024 13:53-0500 Body height 167.6 cm Karolina GARG Work Phone: [facility] 04-17-2024 13:53-0500 Body mass index (BMI) [Ratio] 29.38 kg/m2 Karolina Dolce DPM FACFAS Work Phone: [facility] 04-17-2024 13:53-0500 Body weight 82.56 kg Karolina Dolce DPM FACFAS Work Phone: [facility] 04-17-2024 13:53-0500 Diastolic blood pressure 75 mm[Hg] Karolina Dolce DPM FACFAS Work Phone: [facility] 04-17-2024 13:53-0500 Heart rate 82 /min Karolina Dolce DPM FACFAS Work Phone: [facility] 04-17-2024 13:53-0500 Systolic blood pressure 129 mm[Hg] Karolina Dolce DPM FACFAS Work Phone: [facility] 03-27-2024 14:22-0500 Body height 167.6 cm Karolina Dolce DPM FACFAS Work Phone: [facility] 03-27-2024 14:22-0500 Body mass index (BMI) [Ratio] 29.38 kg/m2 Karolina Dolce DPM FACFAS Work Phone: [facility] 03-27-2024 14:22-0500 Body weight 82.56 kg Karolina Dolce DPM FACFAS Work Phone: [facility] 03-27-2024 14:22-0500 Diastolic blood pressure 77 mm[Hg] Karolina Dolce DPM FACFAS Work Phone: [facility] 03-27-2024 14:22-0500 Heart rate 80 /min Karolina Dolce DPM FACFAS Work Phone: [facility] 03-27-2024 14:22-0500 Systolic blood pressure 128 mm[Hg] Karolina Dolce DPM FACFAS Work Phone: [facility] 03-20-2024 13:41-0500 Body height 167.6 cm Karolina Dolce DPM FACFAS Work Phone: [facility] 03-20-2024 13:41-0500 Body mass index (BMI) [Ratio] 29.38 kg/m2 Karolina Dolce DPM FACFAS Work Phone: [facility] 03-20-2024 13:41-0500 Body weight 82.56 kg Karolina Dolce DPM FACFAS Work Phone: [facility] 03-20-2024 13:41-0500 Diastolic blood pressure 75 mm[Hg] Karolina Dolce DPM FACFAS Work Phone: [facility] 03-20-2024 13:41-0500 Heart rate 82 /min Karolina Dolce DPM FACFAS Work Phone: [facility] 03-20-2024 13:41-0500 Systolic blood pressure 129 mm[Hg] Karolina Dolce DPM FACFAS Work Phone: [facility] 02-23-2024 15:43-0500 Body height 167.6 cm Karolina Dolce DPM FACFAS Work Phone: [facility] 02-23-2024 15:43-0500 Body mass index (BMI) [Ratio] 29.38 kg/m2 Karolina Dolce DPM FACFAS Work Phone: [facility] 02-23-2024 15:43-0500 Body weight 82.56 kg Karolina Dolce DPM FACFAS Work Phone: [facility] 02-23-2024 15:43-0500 Diastolic blood pressure 76 mm[Hg] Karolina Dolce DPM FACFAS Work Phone: [facility] 02-23-2024 15:43-0500 Heart rate 85 /min Karolina Dolce DPM FACFAS Work Phone: [facility] 02-23-2024 15:43-0500 Systolic blood pressure 128 mm[Hg] Karolina Dolce DPM FACFAS Work Phone: [facility] 01-26-2024 16:45-0500 Body height 167.6 cm Karolina Dolce DPM FACFAS Work Phone: [facility] 01-26-2024 16:45-0500 Body mass index (BMI) [Ratio] 29.38 kg/m2 Karolina Dolce DPM FACFAS Work Phone: [facility] 01-26-2024 16:45-0500 Body weight 82.56 kg Karolina Dolce DPM FACFAS Work Phone: [facility] 01-26-2024 16:45-0500 Diastolic blood pressure 75 mm[Hg] Karolina Dolce DPM FACFAS Work Phone: [facility] 01-26-2024 16:45-0500 Heart rate 82 /min Karolina Dolce DPM FACFAS Work Phone: [facility] 01-26-2024 16:45-0500 Systolic blood pressure 130 mm[Hg] Karolina Dolce DPM FACFAS Work Phone: [facility] 10-27-2023 15:33-0400 Body height 167.6 cm Karolina Dolce DPM FACFAS Work Phone: [facility] 10-27-2023 15:33-0400 Body mass index (BMI) [Ratio] 29.38 kg/m2 Karolina Dolce DPM FACFAS Work Phone: [facility] 10-27-2023 15:33-0400 Body weight 82.56 kg Karolina Dolce DPM FACFAS Work Phone: [facility] 10-27-2023 15:33-0400 Diastolic blood pressure 74 mm[Hg] Karolina Dolce DPM FACFAS Work Phone: [facility] 10-27-2023 15:33-0400 Heart rate 80 /min Karolina Dolce DPM FACFAS Work Phone: [facility] 10-27-2023 15:33-0400 Systolic blood pressure 132 mm[Hg] Karolina Dolce DPM FACFAS Work Phone: [facility] Encounters Encounter Date Encounter Type Care Provider Facility Start: 04-17-2024 End: 04-17-2024 Postop follow up visit related to original px Karolina R Dolce DPM FACFAS Work Phone: [facility] Comment on above: Arciniega neuroma, righ t (Primary Dx); Metatarsal deformity, right Start: 04-17-2024 End: 04-17-2024 ambulatory KAROLINA R DOLCE Not Available Start: 03-27-2024 End: 03-27-2024 Postop follow up [...] 03-15-2024 End: 03-15-2024 ambulatory Karolina R Dolce Facility:[facility] Start: 03-15-2024 End: 03-15-2024 Lab Drop off Karolina R Dolce Alejandro Vergara 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) ([facility]/HCC) Start: 10-27-2023 End: 10-27-2023 ambulatory KAROLINA R DOLCE Not Available Start: 10-27-2023 End: 10-27-2023 Bamboo flowsheet Karolina R Dolce DPM FACFAS Work Phone: [facility] Start: 10-27-2023 End: 10-27-2023 Bamboo flowsheet Karolina R Dolce DPM FACFAS Work Phone: [facility] Start: 09-14-2023 End: 09-17-2023 Pre-admission assessment Karolina R Dolce [facility] Start: 09-13-2023 End: 09-13-2023 ambulatory KAROLINA R DOLCE Not Available Start: 08-25-2023 End: 08-25-2023 ambulatory KAROLINA R DOLCE Not Available Start: 07-26-2023 End: 07-26-2023 ambulatory KAROLINA R DOLCE Not Available Start: 07-05-2023 End: 07-05-2023 ambulatory KAROLINA R DOLCE Not Available Start: 06-22-2022 End: 06-22-2022 ambulatory Esdras Bonilla Facility:[facility] Start: 06-02-2022 ambulatory TERESA SANTINO Facility: [facility] Start: 02-02-2022 End: 02-03-2022 ambulatory TERESAJANETT DE Facility:[facility] Start: 01-26-2022 End: 01-27-2022 ambulatory TERESAJANETT DE Facility:[facility] Start: 01-14-2022 End: 01-15-2022 ambulatory TERESA SANTINO Facility:[facility] Start: 12-29-2021 End: 12-30-2021 ambulatory TERESAJANETT DE Facility:[facility] Start: 12-22-2021 End: 12-23-2021 ambulatory TERESAJANETT DE Facility:[facility] Start: 11-30-2021 End: 12-01-2021 ambulatory TERESA SANTINO Facility:[facility] Start: 10-09-2021 Encounter for genera l adult medical examination without abnormal findings TERESA DE [facility] Start: 10-08-2021 End: 10-09-2021 ambulatory TERESA DE [...] EST Office Visit [facility] [address] [facility] [place] [phone] Karolina Bryson R, DPM FACFAS [address] [place] [address] [facility] Start: 03-27-2024 End: 03-27-2024 Patient encounter procedure [facility] Comment on above: Arrived Start: 03-20-2024 End: 03-20-2024 Patient encounter procedure [facility] Comment on above: Arrived Start: 02-23-2024 End: 02-23-2024 Patient encounter procedure 02/23/2024 3:40 PM EST Office Visit [facility] [address] [facility] [facility] [place] [phone] Jesus Brysonm R, DPM FACFAS [address] [place] [address] Arrived [facility] Comment on above: Arrived Start: 01-26-2024 End: 01-26-2024 Patient encounter procedure 01/26/2024 4:50 PM EST Office Visit [facility] [address] [place] [phone] Jesus Brysonm R, DPM FACFAS [address] [place] [address] Arrived [facility] Comment on above: Arrived Start: 10-27-2023 End: 10-27-2023 Patient encounter procedure 10/27/2023 3:30 PM EDT Office Visit [facility] [address] [place] [phone] Karolina Bryson, DPM FACFAS [address] [facility] [place] [address] Arrived [facility] Comment on above: Arrived Start: 10-16-2023 Influenza vaccination Influenza Vacc ine (#1) [facility] Start: 2005 Screening for malign ant neoplasm of breast Mammogram [facility] Start: 11-13-1995 Screening for malign ant neoplasm of cervix [facility] Start: 1986 Screening for malign ant neoplasm of cervix Pap Smear [facility] Start: 1965 Screening for malign ant neoplasm of colon [facility] Payers Date Payer Category Payer Blue Cross Blue Shield [id number] 2023 Unknown BCBS BCBS xxxxxx [id number] 2023-Present [phone] [address] [place] [address] [id number] 2023 Unknown [id number] 2022 Self-pay 1965 Unknown [id number] 2.16.840.1.064911.3.579.2. 593 1965 Unknown [id number] 2.16.840.1.200227.3.579.2. 593 1965 Unknown [id number] 2.16.840.1.186030.3.579.2. 593 1965 Unknown [id number] 2.16.840.1.671296.3.579.2. 593 1965 Unknown [id number] 2.16.840.1.541141.3.579.2. 593 1965 Unknown [id number] 2.16.840.1.880249.3.579.2. 593 1965 Unknown [id number] 2.16.840.1.124323.3.579.2. 593 1965 Unknown [id number] 2.16.840.1.546596.3.579.2. 593 1965 Unknown [id number] 2.16.840.1.908309.3.579.2. 593 1965 Unknown [id number] 2.16.840.1.491284.3.579.2. 593 1965 Unknown [id number] 2.16.840.1.757663.3.579.2. 727 1965 Unknown [id number] 2.16.840.1.115225.3.579.2. 125 1965 Unknown [id number] 2.16.840.1.435122.3.579.2. 1258 1965 Unknown [id number] 2.16.840.1.852440.3.579.2. 125 1965 Unknown [id number] 2.16.840.1.546449.3.579.2. 125 1965 Unknown [id number] 2.16.840.1.545172.3.579.2. 125 1965 Unknown [id number] 2.16.840.1.966005.3.579.2. 1258 1965 Unknown [id number] 2.16.840.1.350085.3.579.2. 1258 1965 Unknown [id number] 2.16.840.1.077953.3.579.2. 1258 1965 Unknown [id number] 2.16.840.1.136619.3.579.2. 1259 1965 Unknown [id number] 2.16.840.1.103497.3.579.2. 1259 1965 Unknown [id number] 2.16.840.1.615308.3.579.2. 1259 1959 Unknown [id number] Unknown [id number] 2.16.840.1.033224.3.579.2. 531 Social History Date Type Detail Facility Tobacco smoking status [facility] Start: 09-13-2023 End: 04-17-2024 Sex Assigned At Female [facility] Start: 07-05-2023 Tobacco smoking stat [facility] Never smoked tobacco [facility] Work Phone: Start: 07-05-2023 Tobacco use and exposure Smokeless tobacco non-user [facility] Start: 09-13-2023 End: 04-17-2024 Alcoholic beverage intake Defer [facility] Start: 09-13-2023 End: 04-17-2024 History of Social function [facility] Start: 1965 Sex assigned at Not on file [facility] Clinical Notes 10-27-2023 to 04-17-2024 Karolina Bryson DPM FACFAS - 04/17/2024 1:50 PM ESTKarolina Bryson DPM FACFAS - 03/27/2024 2:20 PM Mary Bryson DPM FACFAS - 03/20/2024 1:30 PM EST Note Date & Type Note Facility 04-17-2024 History of Presen t illness Narrative Patient: Cielo Ray : 1965 PCP: Paul Villatoro MD SUBJECTIVE This is a 58 y.o. female that presents today The patient is here status post neuroma resection 2nd webspace right procedure. Postop week 5. They deny fevers, chills, nausea, vomiting, calf pain and shortness of breath. Pain level is being managed with ice elevation and pain medication. They have been relatively compliant with her postoperative care. Patient has a normal shoe and denies any other acute issues she is progressing well and would like to return to work next week Allergies: Not on File Past Medical History: [...] < 3 seconds Digits 1-5 bilateral NEURO: [place] Scott 5.07 monofilament was intact B/L. Vibratory sensation was intact B/L Musculoskeletal: Muscle strength was +5 over 5 all intrinsic and extrinsic muscles tested. Negative Homans test noted Surgical site evaluation: The incision site is healing well without signs infection. Minimal swelling noted. Consistent with the patient's level of surgery consistent with time frame postoperatively. Area is completely healed Radiographs: AP/MO/LAT: Diagnostic ultrasound: ASSESSMENT 1. Arciniega neuroma, right 2. Metatarsal deformity, right PLAN Patient will continue with good structured shoes she is released to work she will RTC p.r.n. RADHA Morales documented in this encounter [facility] 03-27-2024 History of Presen t illness Narrative [...] < 3 seconds Digits 1-5 bilateral NEURO: [place] 5.07 monofilament was intact B/L. Vibratory [...] shoe RADHA Morales documented in this encounter [facility] 03-20-2024 History of Presen t illness Narrative [...] < 3 seconds Digits 1-5 bilateral NEURO: [place] Scott 5.07 monofilament was intact B/L. Vibratory [...] device. RADHA Morales documented in this encounter [facility] 03-14-2024 Telephone encounter Note Post op pain meds [facility] 03-14-2024 Miscellaneous Notes Post op pain meds documented in this encounter [facility] 02-23-2024 History of Presen t illness Narrative [...] < 3 seconds Digits 1-5 bilateral NEURO: [place] Scott 5.07 monofilament was intact B/L. Vibratory [...] for the above-stated procedure. End february RADHA Moralse documented in this encounter [facility] 01-26-2024 History of Presen t illness Narrative [...] < 3 seconds Digits 1-5 bilateral NEURO: [place] Scott 5.07 monofilament was intact B/L. Vibratory [...] tissue. RADHA Morales documented in this encounter [facility] 10-27-2023 History of Presen t illness Narrative [...] 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) ([facility]/HCC) PLAN Discussed in great detail the MRI findings patient is progressing well since her last injection she does not want to have any surgery at this time. Did briefly discuss neuroma resection. She will follow up as needed she is to continue with good structured shoes. 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) (CMS/HCC) documented in this encounter [facility]* Diagnosis Metatarsal deformity, right- Primary Arciniega neuroma, right Right foot pain Pain in soft tissues of limb documented in this encounter [facility]* Diagnosis Arciniega neuroma, right- Primary Metatarsal deformity, right documented in this encounter [facility]* Diagnosis Metatarsal deformity, right- Primary documented in this encounter [facility]* Diagnosis Arciniega neuroma, right- Primary Metatarsal deformity, right documented in this encounter [facility]* Diagnosis Arciniega neuroma, right- Primary Metatarsal deformity, right documented in this encounter [facility] Discharge instructions No data available for this section [facility] Progress note No data available for this section [facility] Summary Purpose Family History No Family History [...] section and content) DATE CREATED AUTHOR 06/03/2022 [facility] DATE CREATED AUTHOR AUTHOR'S ORGANIZ ATION 06/26/2022 [facility] DATE CREATED AUTHOR AUTHOR'S ORGANIZ ATION 03/17/2024 [facility] DATE CREATED AUTHOR AUTHOR'S ORGANIZ ATION 03/25/2024 [facility] DATE CREATED AUTHOR AUTHOR'S ORGANIZ ATION 04/19/2024 [facility] EPIC Patient Care team informatio n (unrecognized section and content) Transaction Advisory Services Manager Relationship Specialty Start Date End Date Paul Villatoro MD [address] [place] [phone] PCP - General Family Medicine 09/13/23 Teresa De MD [address] [place] [address] Referring Physician Family Medicine 07/05/23 Transaction Advisory Services Manager Relationship Specialty Start Date End Date Paul Villatoro MD [address] [place] [phone] PCP - General Family Medicine 09/13/23 Teresa De MD [address] [place] [address] Referring Physician Family Medicine 07/05/23 Transaction Advisory Services Manager Relationship Specialty Start Date End Date Paul Villatoro MD [address] [place] [phone] PCP - General Family Medicine 09/13/23 Teresa De MD [address] [place] [address] Referring Physician Family Medicine 07/05/23 Transaction Advisory Services Manager Relationship Specialty Start Date End Date Paul Villatoro MD [address] [place] [phone] PCP - General Family Medicine 09/13/23 Teresa De MD [address] [place] [phone] Referring Physician Family Medicine 07/05/23 Reason for Visit (unrecogniz ed section and content) Reason Comments Follow-up F/U RT foot MRI Reason Comments Neuroma RT foot neuroma pain Reason Comments Neuroma Wants to discuss sheyla varun for neuroma on RT foot Reason Comments Foot/ankle Post-op WK 1 post op - No dr essing on foot at visit, regular shoe Reason Comments Foot/ankle Post-op WK 2 post op Reason Comments Foot/ankle Post-op WK 5 post op FOR RECORDS PERTAINING TO PATIENTS [...] BE BASED ON THE PRIMARY CLINICAL RECORDS. [facility]. provides no warranty or guarantee of the accuracy or completeness of information in this document.
[2024-05-08 15:18] LABS: Basophils Absolute Auto 0.1 10^3/uL (0.0-0.1); Eosinophils Absolute Auto 0.3 10^3/uL (0.0-0.7); Eosinophils Percent Auto 5.3 % (0.9-7.0); Hematocrit 39.7 % (36.0-48.0); Hemoglobin 12.9 g/dL (12.0-16.0); Immature Granulocytes Abs Auto 0.01 10^3/uL (0.00-0.03); Immature Granulocytes Pct Auto 0.2 % (0.0-0.5); Lymphocytes Percent Auto 32.9 % (20.5-60.0); Mean Corpuscular HGB Conc 32.5 g/dL (29.9-35.2); Mean Corpuscular Hemoglobin 30.6 pg (26.7-34.0); Mean Corpuscular Volume 94.3 fL (81.0-99.0); Mean Platelet Volume 9.2 fL (9.5-13.5); Monocytes Absolute Auto 0.5 10^3/uL (0.3-0.8); Monocytes Percent Auto 8.3 % (1.7-12.0); Neutrophils Absolute Auto 3.2 10^3/uL (1.4-6.5); Neutrophils Percent Auto 52.3 % (43.0-75.0); Platelet Count 233 10^3/uL (150-450); Red Blood Count 4.21 10^6/uL (4.20-5.40); Red Cell Distribution Width 13.3 % (11.0-15.0)
[2024-05-08 15:33] LABS: Alanine Aminotransferase 51 U/L (14-59); Albumin Level 3.6 g/dL (3.4-5.0); Alkaline Phosphatase 93 U/L (46-116); Aspartate Amino Transferase 45 U/L (15-37); Bilirubin Direct 0.1 mg/dL (0.0-0.2); Bilirubin Total 0.6 mg/dL (0.2-1.0); Estimated GFR (African America >60 (>=60 mL/min/1.73m^2); Estimated GFR (Non-African Ame >60 (>=60 mL/min/1.73m^2); Globulin 3.5 g/dL; Total Protein 7.1 g/dL (6.4-8.2)
[2024-05-08 16:01] LABS: Erythrocyte Sedimentation Rate 33 mm/hr (<=30)
== END 2024-05-08 15:01 | disposition home or self-care (01) ==
LOC: LAB 15:01
PROVIDERS: PCP Nurse Practitioner Family; Visit Provider Internal Medicine Rheumatology
DX: M05.79 Rheumatoid arthritis with rheumatoid factor of multiple sites without organ or systems involvement (principal); Z79.899 Other long term (current) drug therapy
CPT/HCPCS: 36415; 80076; 82565; 85025; 85652

== ENCOUNTER 2024-07-06 17:48 | Outpatient (OUT) | payer BC, SELFPAY ==
--- OUTSIDE RECORDS SUMMARY | 2024-03-13 06:59 | XMS_ITS ---
Author Organization [facility] in [place] Address [address] [place] [address] Care Team Providers Care Esl Professor Name Role Phone Teresa Portillo Primary Care Provider [phone] REASON FOR VISIT review labs Encounters Encounter Location Date Provider Diagnosis [facility] [address] [place] [address] 03/13/2024 Teresa Portillo Plan Of Treatment No Information Progress Notes * Brooke STEVENS EDOB: [birth year] (58 yo F)Acc No.[id number]:03/13/2024 Patient: Brooke DHALIWAL :1965 A ge:58 Y S ex:Female Address:[address] [place] [address] * true * Date: Generated for Magui thomas/Tashi/eTransmitting on: 0 07/06/2024 05:50 PM EDT
--- OUTSIDE RECORDS SUMMARY | 2024-04-17 14:49 | XMS_ITS ---
Author Name Auto Generated Organization OHIP Care Team Providers Care Back End Web Developer Name Role Phone DOLCE, KAROLINA R Attending Unavailable DOLCE, KAROLINA R Attending Unavailable DOLCE, KAROLINA R Attending Unavailable DOLCE, KAROLINA R Attending Unavailable DOLCE, KAROLINA R Attending Unavailable DOLCE, KAROLINA R Attending Unavailable DOLCE, KAROLINA R Attending Unavailable DOLCE, KAROLINA R Attending Unavailable DOLCE, KAROLINA R Attending Unavailable Dolce, Karolina R Attending Unavailable Dolce, Karolina R Admitting Unavailable PROBLEMS No Problem Records Found PROCEDURES No Procedure Records Found RESULTS SURGICAL PATHOLOGY REPORT Observed: 02/16 9:30 AM Status: F Source: [address] [id number]- Surgical Pathology Report Collected Date/Time: 03/15/2024 09:30 EST Pathologist: Jason CAI PhD, Wilbert Rangel Received Date/Time: 03/15/2024 13:39 EST Dolce DPM, Karolina R Dolce DPM, Karolina R 07 Surgical Pathology Report - 03/19/2024 10:53 [...] and entirely submitted in one cassette. (DC) DC:[facility] Microscopic Description Microscopic examination performed unless gross only specified. This report was transcribed using voice recognition technology and might contain unintended computerized crystal mounter errors. Performed By: #### [id number] # ### [facility] [address] [place] [address] ALLERGIES No Allergies Records Found ENCOUNTERS ADMIT/DISCHARGE ACCOUNT NUMBER ADMITTING ENCOUNTER CLASS LOCATION SOURCE 04/17/2024/04/18/19 [id number] Ambulatory Building:NOM S POD [facility] 03/27/2024/03/27/19 25 [id number] Ambulatory Building:NOM S POD [facility] 03/20/2024/03/20/19 [id number] Ambulatory Building:NOM S POD [facility] 03/15/2024/03/15/19 [id number] Karolina [facility] Amb[facility] 02/23/2024/02/22/19 25 [id number] Ambulatory Building:NOM S POD [facility] 01/26/2024/01/26/20 24 [id number] Ambulatory Building:NOM S POD [facility] 10/27/2023/10/27/19 24 [id number] Ambulatory Building:NOM S POD [facility] 09/13/2023/09/13/19 24 [id number] Ambulatory Building:NOM S POD [facility] 08/25/2023/08/25/19 24 [id number] Ambulatory Building:NOM S POD [facility] 07/26/2023/07/26/19 24 [id number] Ambulatory Building:NOM S POD [facility] PAYERS ENCOUNTER GUARANTOR PAYER SUBSCRIBER SOURCE 04/17/2024 CIELO DE LA TORREB: [place] [address]Iox: () Primary Insurance:[facility] licy Number: [id number] ctive Date:2023-02-14 CIELO STEVENSDOB: [id number] [place] [address] [facility] EPIC 03/27/2024 CIELO E CRUMPDOB: [place] [address]Ubv: (HP) Primary Insurance:BCBSPo licy Number: [id number] ctive Date:2023-02-14 CIELO E CRUMPDOB: [id number] [place] [address] [facility] EPIC 03/20/2024 CIELO E CRUMPDOB: [place] [address]Bav: (HP) Primary Insurance:BCBSPo licy Number: [id number] ctive Date:2023-02-14 CIELO E CRUMPDOB: [id number] [place] [address] [facility] EPIC 03/15/2024 CIELO E CRUMPDOB: [address] STTel: (HP) Primary Insurance:Stacy Policy Number: [id number] ctive Date:2024-03-15 Gonzalez [id number], [place] [address]HD: CIELO E CRISTIANO [facility] 02/23/2024 CIELO E CRUMPDOB: [place] [address]Pmo: (HP) Primary Insurance:BCBSPo licy Number: [id number] ctive Date:2023-02-14 CIELO E CRUMPDOB: [id number] [place] [address] [facility] EP[facility] 01/26/2024 CIELO E CRUMPDOB: [place] [address]Kes: (HP) Primary Insurance:BCBSPo licy Number: [id number] ctive Date:2023-02-14 CIELO E CRUMPDOB: [id number] [place] [address] [facility] EP[facility] 10/27/2023 CIELO E CRUMPDOB: [place] [address]Wqx: (HP) Primary Insurance:BCBSPo licy Number: [id number] ctive Date:2023-02-14 CIELO E CRUMPDOB: [id number] [place] [address] [facility] 09/13/2023 CIELO E CRUMPDOB: [place] [address]Jcx: (HP) Primary Insurance:BCBSPo licy Number: [id number] ctive Date:2023-02-14 CIELO E CRUMPDOB: [id number] [place] [address] [facility] 08/25/2023 CIELO E CRUMPDOB: [place] [address]Cja: (HP) Primary Insurance:BCBSPo licy Number: [id number] ctive Date:2023-02-14 CIELO E CRUMPDOB: [id number] [place] [address] [facility] 07/26/2023 CIELO E CRUMPDOB: [place] [address]Bzq: (HP) Primary Insurance:BCBSPo licy Number: [id number] ctive Date:2023-02-14 CIELO E CRUMPDOB: [id number] [place] [address] [facility] EPIC
--- OUTSIDE RECORDS SUMMARY | 2024-05-17 11:15 | XMS_ITS ---
Author Organization [facility] in [place] Address [address] [place] [address] Care Team Providers Care Special Event Assistant Name Role Phone Teresa Portillo Primary Care Provider [phone] Wilbert Estevez [phone] Allergies No Known Allergies REASON FOR VISIT PHILIPP PATIENT- sore throat-started last Tuesday- wasn't sick before that Medications Medication SIG (Take, Route, Frequency, Duration) Notes Start Date End Date Status Meloxicam 15 MG TAKE 1 TABLET BY MARIAH TH EVERY DAY for 30 Active Azithromycin 250 MG 2 tabs today then 1 tab Orally daily for 5 days 05/17/2024 Active Cyclobenzaprine HCl 10 MG TAKE 1 TABLET BY MOUTH EVERY DAY AT BEDTIME NEEDED FOR 30 DAYS for 90 Active Fluticasone Propionate 50 MCG/ACT 1 spray in each nostril Nasally Once a day Active Folic Acid 1 MG 1 tablet Orally BID Active Leflunomide 20 MG Oral for 28 Days Active Meclizine HCl 25 MG 1 tablet as needed Orally every 12 hrs for 7 days 06/16/2023 Active Cetirizine HCl 10 MG 1 tablet Orally Onc e a day for 30 days Active Arthritis Pain Activ e Social History Tobacco Use: Social History Observation Description Date Details (start date - stop date) Never Smoker NA - NA Tobacco Control (Standard) Question Answer Notes Tobacco use: Nonsmoker Vital Signs Temperature 97.5 degrees Fahrenheit 05/18/19 25 Blood pressure systolic 146 mm Hg 05/18/19 25 Blood pressure diastolic 90 mm Hg 025 Height 64 in 05/17/2024 Weight 185.6 lbs 05/17/2024 BMI 31.85 kg/m2 05/17/2024 Encounters Encounter Location Date Provider Diagnosis [facility] [address] [place] [address] 05/17/2024 Wilbert Villatoro Strep throat J02.0 Assessments Encounter Date Diagnosis (ICD Code) Assessment Notes Treatment Notes Treatment Clinical Notes Section Notes 05/17/2024 Strep throat (ICD-10 - J02.0) You have been prescribed antibiotics for strep throat. Antibiotics may bother your stomach, so try taking them with a light meal (unless instructed otherwise by your pharmacist). It is important to take them until they are finished. You can use oqbh-msu-mktbmpj acetaminophen or ibuprofen if needed for pain. You can also use throat lozenges or gargle warm water to help with the sore throat. You are contagious until you have been on antibiotics for 24 hours. You should be extra vigilant about hand washing or using hand extrusion engineer gel. You should follow up with your Primary Care Physician or return to clinic if not improving in the next 3-5 days. Plan Of Treatment Medication Medication Name Sig Start Date Stop Date Notes Azithromycin 250 MG 2 tabs today then 1 tab Orally daily for 5 days 05/17/2024 Treatment Notes Assessment Notes Strep throat You have been prescr ibed antibiotics for strep throat. Antibiotics may bother your stomach, so try taking them with a light meal (unless instructed otherwise by your pharmacist). It is important to take them until they are finished. You can use xtdu-sww-ycicbim acetaminophen or ibuprofen if needed for pain. You can also use throat lozenges or gargle warm water to help with the sore throat. You are contagious until you have been on antibiotics for 24 hours. You should be extra vigilant about hand washing or using hand extrusion engineer gel. You should follow up with your Primary Care Physician or return to clinic if not improving in the next 3-5 days. Next Appt Details Follow Up: 3-5 days if no im provement, Reason: Progress Notes * RODNEY Brooke EDOB: [birth year] (58 yo F)Acc No.[id number]:05/17/2024 Progress Note Patient: Brooke DHALIWAL Provider: Vahe Villatoro ([facility])MD :1965 A ge:58 Y S ex:Female Date:05/17/2024 Address:[place], [id number] Pcp:Teresa Portillo Check In:02:56 PM ESTCheck O ut:04:12 PM EST Subjective: * Chief Complaints: * P AM PATIENT- sore throat-started last Tuesday- wasn't sick before that * HPI: S ore Throat/Strep Throat: The symptoms have been present for 2 -3 days. The symptoms are m oderate. The patient h as been exposed to strep. Symptomatic treatment has included O TC Medication. Associated symptoms include f ever, chills, headache. * ROS: S kin: Rash d enies. E NT: Comments S ee HPI for details. C ardiovascular: Edema d enies. P alpitations d enies. ? R espiratory: Chest pain d enies. C ough d enies. ? G astrointestinal: Abdominal pain d enies. N ausea d enies. V omiting d enies. * Active Problem List Z20.828 Contact with and (koo spected) exposure to other viral communicable diseases Modified On:07/16/2022 Status:confirmed F41.9 Anxiety Modified On:07/16/2022 Status:confirmed R42 Dizziness Modified On:07/16/2022 Status:confirmed H69.82 Eustachian tube dysf unction, left Modified On:07/16/2022 Status:confirmed M62.838 Muscle spasm Modified On:07/16/2022 Status:confirmed E66.3 Over weight Modified On:07/16/2022 Status:confirmed H69.81 Eustachian tube dysf unction, right Modified On:07/16/2022 Status:confirmed Z00.00 Wellness examination Modified On:07/16/2022 Status:confirmed M06.9 Chronic rheumatic ar thritis Modified On:07/16/2022U Status:confirmed M77.02 Golfers elbow, left Modified On:07/16/2022 Status:confirmed H65.90 Serous otitis media Modified On:07/16/2022 Status:confirmed M94.0 Costochondritis Modified On:07/16/2022 Status:confirmed K57.92 Diverticulitis Modified On:07/16/2022 Status:confirmed K13.0 Angular cheilitis Modified On:07/16/2022 Status:confirmed H92.01 Ear pain, right Modified On:07/16/2022 Status:confirmed M25.552 Hip pain, left Modified On:07/16/2022 Status:confirmed M47.812 Spondylosis without myelopathy or radiculopathy, cervical region Modified On:06/02/2022 Status:confirmed M05.89 Other rheumatoid art hritis with rheumatoid factor of multiple sites Modified On:06/02/2022 Status:confirmed I87.2 Venous insufficiency (chronic) (peripheral) Modified On:06/02/2022 Status:confirmed I83.90 Asymptomatic varicos e vein of lower 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 Modified On:06/02/2022 Status:confirmed R03.0 Borderline hypertens ion Modified On:06/02/2022 Status:confirmed F41.1 Generalized anxiety disorder Modified On:06/02/2022 Status:confirmed K57.90 Diverticulosis Modified On:06/02/2022 Status:confirmed M50.30 DDD (degenerative di sc disease), cervical Modified On:06/02/2022 Status:confirmed * Medical History: * Surgical History: H YSTERECTOMY TOTAL CHOLECYSTECTOMY APPENDECTOMY Right Foot Surgery- neuroma taken out * Hospitalization/Major Diagno stic Procedure: D enies Past Hospitalization * Family History: F ather: , of heart attack at 62, diagnosed with Unspecified heart disease. M other: alive, breast cancer, diagnosed with Unspecified essential hypertension. B rother(s): alive. S ister(s): alive. 2 brother(s) , 1 sister(s) . . * Social History: T obacco Use: T obacco Control (Standard) T obacco use: N onsmoker * Medications: T akingArthritis Pain Cetirizine HCl 10 MG Tablet 1 tablet Orally Once a day Cyclobenzaprine HCl 10 MG Tablet TAKE 1 TABLET BY MOUTH EVERY DAY AT BEDTIME NEEDED FOR 30 DAYS Fluticasone Propionate 50 MCG/ACT Suspension 1 spray in each nostril Nasally Once a day Folic Acid 1 MG Tablet 1 tablet Orally BID Leflunomide 20 MG Tablet Oral Meclizine HCl 25 MG Tablet 1 tablet as needed Orally every 12 hrs Meloxicam 15 MG Tablet TAKE 1 TABLET BY MOUTH EVERY DAY Taking Arthritis Pain Taking Cetirizine HCl 10 MG Tablet 1 tablet Orally Once a day Taking Cyclobenzaprine HCl 10 MG Tablet TAKE 1 TABLET BY MOUTH EVERY DAY AT BEDTIME NEEDED FOR 30 DAYS Taking Fluticasone Propionate 50 MCG/ACT Suspension 1 spray in each nostril Nasally Once a day Taking Folic Acid 1 MG Tablet 1 tablet Orally BID Taking Leflunomide 20 MG Tablet Oral Taking Meclizine HCl 25 MG Tablet 1 tablet as needed Orally every 12 hrs Taking Meloxicam 15 MG Tablet TAKE 1 TABLET BY MOUTH EVERY DAY XxefourpgbxmAvtctqdj-Acrgyvdjr-DA 3.5-43546-9 Suspension 4 drops into affected ear Otic Three times a day Ondansetron 4 MG Tablet Disintegrating 1 tablet on the tongue and allow to dissolve Orally BID prn Ondansetron HCl 4 MG Tablet 1 tablet Orally BID prn Medication List reviewed and reconciled with the patientDiscontinued Rnjbxopq-Urxpbwiyd-YB 3.5-41229-6 Suspension 4 drops into affected ear Otic Three times a day Discontinued Ondansetron 4 MG Tablet Disintegrating 1 tablet on the tongue and allow to dissolve Orally BID prn Discontinued Ondansetron HCl 4 MG Tablet 1 tablet Orally BID prn Medication List reviewed and reconciled with the patient * Allergies: N .K.D.A.no[Allergies Verified] Objective: * Vitals: W t:185.6lbs, Ht: 64 in, BP:146/90mm Hg, Temp:97.5F, BMI:31.85Index, Ht-cm: 162.56 cm, Wt-k.19 kg. * Examination: G eneral Examination: GENERAL APPEARANCE: i n no acute distress, well developed, well nourished. ENT: ear and nose external appearance normal, tympanic membranes clear bilaterally, facial tenderness to palpation over sinuses. EYES: p upils equal, round, reactive to light and accomodations. ORAL CAVITY: mucosa moist. NECK: n jerilyn supple, full range of motion, no cervical lymphadenopathy. LUNGS: c lear to auscultation bilaterally. CARDIO: no murmurs, regular rate and rhythm, S1, S2 normal. ABDOMEN: soft, nontender , not distended, bowel sounds are present, normal. SKIN: n o suspicious lesions, warm and dry. EXTREMITIES: no clubbing, cyanosis, or edema. NEUROLOGIC: n onfocal, motor strength normal upper and lower extremities, sensory exam intact. Assessment: * Assessment: 1. S trep throat - J02.0 (Primary) Plan: * Treatment: * Procedure Codes: * Preventive Medicine: Screenings/Counseling: B [place] ACTION PLAN Above Normal BMI Follow-up D ietary management education, guidance, and counseling * Follow Up: 3 -5 days if no improvement * * Sign off status: Completed Visit Status: C HK (Check Out) true * Provider: Vahe Villatoro ([facility])MD Date: 05/17/2024 Generated for Printi ng/Faoralg/eTransmitting on: 0 07/06/2024 05:49 PM EDT History and Physical Notes * HPI (History of Present Illness) Category Sub-Category Detail Notes Category Not es Sore Throat/Strep Throat The symptoms avitia ve been present for 2-3 days The symptoms are moderate The patient has been exposed to strep Symptomatic treatment has included OTC M edication Associated symptoms include fever, chill s, headache Examination Category Sub-Category Detail Notes Category Not es General Examination GENERAL APPEARANCE: in no ac huber distress, well developed, well nourished ENT: ear and nose externa l appearance normal, tympanic membranes clear bilaterally, facial tenderness to palpation over sinuses EYES: pupils equal, round, reactive to light and accomodations NECK: neck supple, full ra nge of motion, no cervical lymphadenopathy CARDIO: no murmurs, regular rate and rhythm, S1, S2 normal LUNGS: clear to auscultatio n bilaterally ABDOMEN: soft, nontender , no t distended, bowel sounds are present, normal NEUROLOGIC: nonfocal, motor stre ngth normal upper and lower extremities, sensory exam intact SKIN: no suspicious lesion s, warm and dry EXTREMITIES: no clubbing, cyanosi s, or edema ORAL CAVITY: mucosa moist
--- OUTSIDE RECORDS SUMMARY | 2024-07-06 11:15 | XMS_ITS ---
Author Organization [facility] in [place] Address [address] [place] [address] Care Team Providers Care Evening Sitter Name Role Phone Teresa Portillo Primary Care Provider Allergies No Known Allergies REASON FOR VISIT swollen, red leg- sore up to the knee- had a vein procedure years ago but seems to have come back worse than ever , Chest congestion- just started- cough productive- little yellow, sore throat Medications Medication SIG (Take, Route, Frequency, Duration) Notes Start Date End Date Status Fluticasone Propionate 50 MCG/ACT 1 spray in each nostril Nasally Once a day Active Leflunomide 20 MG Oral for 28 Days Active Folic Acid 1 MG 1 tablet Orally BID Active Meclizine HCl 25 MG 1 tablet as needed Orally every 12 hrs for 7 days 06/16/2023 Active Meloxicam 15 MG TAKE 1 TABLET BY MARIAH TH EVERY DAY for 30 Active Arthritis Pain Activ e Cephalexin 500 MG 2 capsule Orally BID for 10 days 07/06/2024 Active Cetirizine HCl 10 MG TAKE 1 TABLET BY MO UTH EVERY DAY FOR 30 DAYS for 90 Active Cyclobenzaprine HCl 10 MG TAKE 1 TABLET BY MOUTH EVERY DAY AT BEDTIME NEEDED FOR 30 DAYS for 90 Active Social History Tobacco Use: Social History Observation Description Date Details (start date - stop date) Never Smoker NA - NA Tobacco Control (Standard) Question Answer Notes Tobacco use: Nonsmoker Vital Signs Temperature 98.0 degrees Fahrenheit 07/07/19 25 Blood pressure systolic 138 mm Hg 07/07/19 25 Blood pressure diastolic 90 mm Hg 025 Height 64 in 07/06/2024 Weight 181.4 lbs 07/06/2024 BMI 31.13 kg/m2 07/06/2024 Encounters Encounter Location Date Provider Diagnosis [facility] [address] [facility] [place] [address] 07/06/2024 Teresa Portillo Left leg pain M79.605 and Cough R05.9 Assessments Encounter Date Diagnosis (ICD Code) Assessment Notes Treatment Notes Treatment Clinical Notes Section Notes 07/06/2024 Left leg pain (ICD-10 - M79.605) probable cellulitis close monitoring if not improving 24-48 hours, getting worse on abx, needs to be seen US tonight 6 pm 07/06/2024 Cough (ICD-10 - R05.9) likely viral at this point otc meds Plan Of Treatment Medication Medication Name Sig Start Date Stop Date Notes Cephalexin 500 MG 2 capsule Orally BID for 10 days 025 Treatment Notes Assessment Notes Left leg pain probable cellulitis close monitoring if not improving 24-48 hours, getting worse on abx, needs to be seen US tonight 6 pm Cough likely viral at this point otc meds Pending Test Test Name Order Date US SABRINA DOP LEG LT 07/06/2024 Next Appt Details Follow Up: prn, Reason: Progress Notes * Brooke STEVENS EDOB: [birth year] (58 yo F)Acc No.[id number]:07/06/2024 UNLOCKED PROGRESS NOTE Progress Note Patient: Brooke DHALIWAL Provider: Kortney Portillo ([facility]), HAND THERAPIST :1965 A ge:58 Y S ex:Female Date:07/06/2024 [address] [place] [id number] Check In:02:56 PM ESTCheck O ut:03:49 PM EST Subjective: * Chief Complaints: * 1 . Swollen, red leg- sore up to the knee- had a vein procedure years ago but seems to have come back worse than ever . 2. Chest congestion- just started- cough productive- little yellow, sore throat. * HPI: G eneral: left leg more swollen than right for months now two weeks ago throbbing and redness getting worse hx varicose veins had work done on in past has cat, some scabs to shins. * ROS: G eneral/Constitutional: Fever d enies. H eadache d enies. W eight loss?denies. O phthalmologic: Discharge d enies. E ye Pain d enies. I tching and redness d enies. E NT: Nasal discharge d enies. N ana rosa congestion d enies.?Sore throat d enies. C ardiovascular: Chest tightness/ heavy pressure d enies. R apid heart rate d enies. S welling of extremities d enies. C hest pain d enies. ? R espiratory: Productive cough d enies. C hest pain d enies. C ough a dmits. S hortness of breath d enies. W heezing d enies. G astrointestinal: Abdominal pain d enies. C onstipation d enies. D ecreased appetite d enies. D iarrhea d enies. N ausea d enies. V omiting?denies. G enitourinary: Urinary incontinence d enies. P ainful urination d enies. M usculoskeletal: Back pain d enies. N jerilyn pain d enies. M uscle aches d enies. S kin: Rash d enies. S kin lesion(s) d enies. O ther?redness swelling and tenderness left LE. * Medical History: E ustachian tube dysfunction, right, Ear pain, right, Hip pain, left, Golfers elbow, left, Over weight, Dizziness, Muscle spasm, Anxiety, Contact with and (suspected) exposure to other viral communicable diseases, Eustachian tube dysfunction, left, Angular cheilitis, Chronic rheumatic arthritis, Serous otitis media, Costochondritis, Diverticulitis, Wellness examination. * Surgical History: H YSTERECTOMY TOTAL , CHOLECYSTECTOMY , APPENDECTOMY , Right Foot Surgery- neuroma taken out . * Hospitalization/Major Diagno stic Procedure: D enies Past Hospitalization. * Family History: F ather: , of heart attack at 62, diagnosed with Unspecified heart disease. M other: alive, breast cancer, diagnosed with Unspecified essential hypertension. B rother(s): alive. S ismarco(s): alive. 2 brother(s) , 1 sister(s) . . * Social History: T obacco Use: T obacco Control (Standard) T obacco use: N onsmoker * Medications: T aking Arthritis Pain , Taking Cetirizine HCl 10 MG Tablet TAKE 1 TABLET BY MOUTH EVERY DAY FOR 30 DAYS , Taking Cyclobenzaprine HCl 10 MG Tablet TAKE 1 TABLET BY MOUTH EVERY DAY AT BEDTIME NEEDED FOR 30 DAYS , Taking Fluticasone Propionate 50 MCG/ACT Suspension 1 spray in each nostril Nasally Once a day , Taking Folic Acid 1 MG Tablet 1 tablet Orally BID , Taking Leflunomide 20 MG Tablet Oral , Taking Meclizine HCl 25 MG Tablet 1 tablet as needed Orally every 12 hrs , Taking Meloxicam 15 MG Tablet TAKE 1 TABLET BY MOUTH EVERY DAY , Discontinued Azithromycin 250 MG Tablet 2 tabs today then 1 tab Orally daily , Medication List reviewed and reconciled with the patient * Allergies: N .K.D.A. Objective: * Vitals: W t:181.4lbs, Ht: 64 in, BP:138/90mm Hg, Temp:98.0F, BMI:31.13Index, Ht-cm: 162.56 cm, Wt-k.28 kg. * Examination: G eneral Examinations: GENERAL APPEARANCE: a lert and oriented, i n no acute distress. EYES: c onjunctiva normal, sclera non-icteric. NOSE: n ormal external appearance. LUNGS: c lear to auscultation bilaterally. CARDIO: r egular rate and rhythm, S1, S2 normal, swelling BL LE left greater right. ABDOMEN: s oft, nontender. MUSCULOSKELETAL: G ait and station normal. SKIN: l eft lower leg with slight redness, warmth and some swelling greater than right lower leg, small scabs noted BL LE. Assessment: * Assessment: 1. L eft leg pain - M79.605 (Primary) 2 . C ough - R05.9 Plan: * Treatment: 2. C ough Notes: likely viral at this point otc meds * Preventive Medicine: Screenings/Counseling: B [place] ACTION PLAN Above Normal BMI Follow-up D ietary management education, guidance, and counseling * Follow Up: p rn * * Electronic signature of Zuleyka John , ELIAN, CANE BURNER.HAND [id number] on 07/06/2024 at 05:50 PM EDT Sign off status: Pending Visit Status: C HK (Check Out) * Provider: Kortney Portillo (KARTIK), TORSTEN Date: 07/06/2024 Generated for Magui thomas/Tashi/eTransmitting on: 07/06/2024 05:50 PM EDT History and Physical Notes * HPI (History of Present Illness) Category Sub-Category Detail Notes Category Not es General left leg more swollen than right for months now two weeks ago throbbing and redness getting worse hx varicose veins had work done on in past has cat, some scabs to shins Examination Category Sub-Category Detail Notes Category Not es General Examinations GENERAL APPEARANCE: alert a nd oriented, in no acute distress EYES: conjunctiva normal, sclera non-icteric EARS: NOSE: normal external appe arance THROAT: CARDIO: regular rate and rhy thm, S1, S2 normal, swelling BL LE left greater right LUNGS: clear to auscultatio n bilaterally ABDOMEN: soft, nontender SKIN: left lower leg with slight redness, warmth and some swelling greater than right lower leg, small scabs noted BL LE BACK: MUSCULOSKELETAL: Gait and station nor mal LYMPH NODES:
--- OUTSIDE RECORDS SUMMARY | 2024-07-06 17:50 | XMS_ITS | Encounter Summary ---
Author Organization [facility] Address [address] [place] [address] Care Team Providers Care Grocery Store Associate Name Role Phone Teresa Portillo MD Unavailable [phone] Paul Villatoro MD Primary Care Provider [phone] Encounter Details Date Type Department Care Team (Late st Contact Info) Description 03/15/2024 Abstract [facility] [address] [place] [id number] Luiz Bryson, DPM [facility] [address] [place] [address] Social History Tobacco Use Types Packs/Day Years Used Date Smoking Tobacco: Never Smokeless Tobacco: Never Alcohol Use Standard Drinks/Week Comments Defer 0 (1 standard drink = 0.6 oz pur e alcohol) Comments Unknown Sex and Gender Information Value Date Recorded Sex Assigned at Not on file Legal Sex Female 6:34 PM EDT Gender Identity Not on file Sexual Orientation Not on file documented as of this encounter Plan of Treatment Not on file documented as of this encounter Visit Diagnoses Not on filedocumented in this encounter Care Teams Grocery Store Associate Relationship Specialty Start Date End Date Paul Villatoro MD [address] [place] [address] PCP - General Family Medicine 09/13/23 Teresa Portillo MD [address] [place] [address] Referring Physician Family Medicine 07/05/23 documented as of this encounter
--- OUTSIDE RECORDS SUMMARY | 2024-07-06 17:50 | XMS_ITS | Clinical Summary ---
Author Organization [facility] Address [address] [place] [address] Care Team Providers Care Associate Dean Of Students Name Role Phone Teresa Portillo MD Unavailable [phone] Paul Villatoro MD Primary Care Provider [phone] Medications No known medications Active Problems No known active problems Encounters Date Type Department Care Team Description 04/17/2024 1:50 PM EST Office Visit [facility] [address] [place] [phone] Dolce, Salvatore R, DPM FACFAS Arciniega neuroma, right (Primary Dx); Metatarsal deformity, right 04/16/2024 Travel 04/11/2024 Abstract [facility] [address] [place] [address] Dolce, Salvatore R, DPM FAC[facility]AS 04/11/2024 Abstract [facility] [address] [place] [address] Dolce, Salvatore R, DPM FACFAS 04/11/2024 Telephone [facility] [address] [place] [phone] Reina Bran MA SHORT TERM DISABILITY PPW from Last 3 Months Social History Tobacco Use Types Packs/Day Years Used Date Smoking Tobacco: Never Smokeless Tobacco: Never Tobacco Cessation:Counseling Given: Yes Alcohol Use Standard Drinks/Week Comments Defer 0 (1 standard drink = 0.6 oz pur e alcohol) Comments Unknown Sex and Gender Information Value Date Recorded Sex Assigned at Not on file Legal Sex Female 6:34 PM EDT Gender Identity Not on file Sexual Orientation Not on file Last Filed Vital Signs Vital Sign Reading Time Taken Comments Blood Pressure 129/75 04/17/2024 1:53 PM EST Pulse 82 04/17/2024 1:53 PM EST Temperature - - Respiratory Rate - - Oxygen Saturation - - Inhaled Oxygen Concentration - - Weight 82.6 kg (182 lb) 04/17/2024 1:53 PM EST Height 167.6 cm (5' 6 ) 04/17/2024 1:53 PM EST Body Mass Index 29.38 04/17/2024 1:53 PM EST Plan of Treatment Health Maintenance Due Date Last Done Comments CT Colonography 1965 Colonoscopy 1965 Colorectal Cancer Screening 1965 FIT-DNA 1965 FIT 1965 FOBT 1965 Sigmoidoscopy 1965 Pap Smear 1986 Cervical Cancer Screening 11/13/1995 HPV/Cotest 11/13/1995 Mammogram 2005 Influenza Vaccine (Season Ended) 2024 Insurance BCBS Care Teams Associate Dean Of Students Relationship Specialty Start Date End Date Paul Villatoro MD [address] [place], [place] [phone] PCP - General Family Medicine 09/13/23 Teresa Portillo MD [address] [place] [address] Referring Physician Family Medicine 07/05/23
--- OUTSIDE RECORDS SUMMARY | 2024-07-06 17:50 | XMS_ITS | Encounter Summary ---
Author Organization [facility] Address [address] [place] [address] Care Team Providers Care Casino Operations Supervisor Name Role Phone Teresa Portillo MD Unavailable Paul Villatoro MD Primary Care Provider [phone] Encounter Details Date Type Department Care Team (Late st Contact Info) Description 03/15/2024 Abstract [facility] [address] [place] [address] Salvatore Bryson, DPM [facility] [address] [place] [address] Social History Tobacco Use Types Packs/Day Years [...] on filedocumented in this encounter Care Teams Casino Operations Supervisor Relationship Specialty Start Date End Date Paul Villatoro MD [address] [place] [address] PCP - General Family Medicine 09/13/23 Teresa Portillo MD [address] [place] [address] Referring Physician Family Medicine 07/05/23 documented as of this encounter
--- OUTSIDE RECORDS SUMMARY | 2024-07-06 17:50 | XMS_ITS | Encounter Summary ---
Author Organization [facility] Address [address] [place] [address] Care Team Providers Care Renal Dialysis Technician Name Role Phone Teresa Portillo MD Unavailable [phone] Paul Villatoro MD Primary Care Provider [phone] Encounter Details Date Type Department Care Team (Late st Contact Info) Description 10/19/2023 Clinisync Result Encounter [facility] External Department Unsolicited Luiz Alcaraz MD [address] [place] [id number] Social History Tobacco Use Types Packs/Day Years [...] on file documented as of this encounter Procedures Procedure Name Priority Date/Time Associated Diagnosis Comments MR FOOT RT WO CON 10/19/2023 12: 11 PM EDT documented in this encounter Results * MR FOOT RT WO CON (10/19/2023 12:11 PM EDT) Anatomical Region Laterality Modality Other 10/19/2023 12:1 1 PM EDT Narrative 10/19/2023 12:13 PM EDT The [address] [address] Magnetic Resonance Report Signed Patient: CIELO STEVENS MR#: [id number] : 1965 Acct:[id number] Age/Sex: 57 / F ADM Date: 10/18/23 Loc: MRI Attending Dr: Luiz Alcaraz M.D. Ordering Physician: Luiz Alcaraz M.D. Date of Service: 10/18/23 Procedure(s): MR foot RT wo con Accession Number(s): [id number] cc: TERESA PORTILLO ; Luiz Alcaraz M.D. [place] [id number] Patient Name: CIELO STEVENS MRN: [id number] date: 1965 Sex: F Assigned Patient Location: MRI Current Patient Location: Accession/Order Number: [id number] Exam Date: 10/18/2023 15:45 Report Date: 10/19/2023 12:11 At the request of: LUIZ ALCARAZ Procedure: MR foot RT wo con EXAM: [...] 3. Extensor and flexor tendons are intact. Electronically authenticated by: CAMILO HARO Date: 10/19/2023 12:11 Dictated By: Camilo Haro M.D. Signed By: 10/19/23 1213 DD/ 1211 TD/TT: [employer]orer [employer] Maintenance: Procedure Note Radiology, Radiologist, - 10/19/2023 The [place] [id number] Magnetic Resonance Report Signed Patient: CIELO STEVENS EMR#: [id number] : 1965Acct:[id number] Age/Sex: 57 / FADM Date: 10/18/23 Loc: MRI Attending Dr: Luiz Alcaraz M.D. Ordering Physician: Luiz Alcaraz M.D. Date of Service: 10/18/23 Procedure(s): MR foot RT wo con Accession Number(s): [id number] cc: TERESA PORTILLO ; Luiz Alcaraz M.D. The [place] [id number] Patient Name: CIELO STEVENS MRN: [id number] date: 1965 Sex: F Assigned Patient Location: MRI Current Patient Location: Accession/Order Number: [id number] Exam Date: 10/18/2023 15:45 Report Date: 10/19/2023 12:11 At the request of: LUIZ ALCARAZ Procedure: MR foot RT wo con EXAM: MR foot RT wo con HISTORY: Right Metatarsal Deformity, Arciniega Neuroma COMPARISON: None. TECHNIQUE: MRI images obtained with multiple sequences. MRI of the rightfoot without contrast. Sequences obtained by standard department [...] at the third interspace, measuring approximately 1.3 x1.6 cm (axial T2 image 6, axial T1 image 6). 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 Nonspecific edema at the third metatarsal head, possibly degenerative or posttraumatic MR/MR foot RT wo con IMPRESSION: 1. Soft tissue mass at the third interspace, measuring approximately 1.3 x1.6 cm (axial T2 image 6, axial T1 image 6). 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 2. Nonspecific edema at the third metatarsal head, considerations include degenerative or posttraumatic etiologies. 3. Extensor and flexor tendons are intact. Electronically authenticated by: CAMILO HARO Date: 10/19/2023 12:11 Dictated By: Camilo Haro M.D. Signed By:10/19/23 1213 DD/ 1211 TD/TT: Laborer [employer] Maintenance: Luiz Alcaraz MD [facility] Final Result documented in this encounter Visit Diagnoses Not on filedocumented in this encounter Care Teams Renal Dialysis Technician Relationship Specialty Start Date End Date Paul Villatoro MD [address] [place] [id number] PCP - General Family Medicine 09/13/23 Teresa Portillo MD [address] [place] [address] Referring Physician Family Medicine 07/05/23 documented as of this encounter
--- OUTSIDE RECORDS SUMMARY | 2024-07-06 17:50 | XMS_ITS | Encounter Summary ---
Author Organization [facility] Address [address] [place] [address] Care Team Providers Care Physical Therapy Instructor Name Role Phone Teresa Portillo MD Unavailable [phone] Paul Villatoro MD Primary Care Provider [phone] Encounter Details Date Type Department Care Team (Late st Contact Info) Description 02/29/2024 Clinisync Result Encounter [facility] External Department Unsolicited Luiz Bryson, DPM FAC[facility]AS [address] [place] [id number] Social History Tobacco Use Types Packs/Day Years [...] Procedure Name Priority Date/Time Associated Diagnosis Comments ECG 12-LEAD 02/29/2024 3:07 PM EST documented in this encounter Results * ECG 12-LEAD (02/29/2024 3:07 PM EST) Anatomical Region Laterality Modality Other 02/29/2024 3:07 PM EST Narrative 02/29/2024 8:47 PM EST The [address] [address] Electrocardiograph Report Signed Patient: CIELO STEVENS MR#: [id number] : 1965 Acct:[id number] Age/Sex: 58 / F ADM Date: 02/29/24 Loc: CARD Attending Dr: LUIZ BRYSON M.D. Ordering Physician: LUIZ BRYSON M.D. Date of Service: 02/29/24 Procedure(s): ECG 12 lead Accession Number(s): [id number] cc: [facility] Test Date: 2024-02-29 Pat Name: CIELO STEVENS Department: Room: - Gender: Female Car Hopper: : 1965 Requested By: [id number] Order Number: [id number] Reading MD: JOEY VINSON Measurements Intervals [place] Rate: 86 P: 68 [place]: 162 QRS: 57 QRSD: 90 T: 51 QT: 351 QTc: 421 Interpretive Statements SINUS RHYTHM No previous ECG available for comparison Electronically Signed On 02-29-2024 20:47:12 EST by JOEY VINSON Dictated By: Joey Vinson D.O. Signed By: 02/29/24204602/29/242046 DD/ 1507 TD/TT: Buffing Wheel Presser: Procedure Note Radiology, Radiologist, MD - 02/29/2024 [place] [address] Electrocardiograph Report Signed Patient: CIELO STEVENS EMR#: [id number] : 1965Acct:[id number] Age/Sex: 58 / FADM Date: 02/29/24 Loc: CARD Attending Dr: LUIZ BRYSON M.D. Ordering Physician: LUIZ BRYSON M.D. Date of Service: 02/29/24 Procedure(s): ECG 12 lead Accession Number(s): [id number] cc: [facility] Test Date: 2024-02-29 Pat Name: CIELO STEVENS Department: Room: - Gender: Female Car Hopper: : 1965 Requested By: 0719 Order Number: [id number] Reading MD: JOEY VINSON Measurements Intervals [place] Rate: 86 P: 68 [place]: 162 QRS: 57 QRSD: 90 T: 51 QT: 351 QTc: 421 Interpretive Statements SINUS RHYTHM No previous ECG available for comparison Electronically Signed On 02-29-2024 20:47:12 EST by JOEY VINSON Dictated By: Joey Vinson D.O. Signed By:02/29/24204602/29/242046 DD/ 150 TD/TT: Buffing Wheel Presser: us Luiz Bryson DPM [facility]AC[facility]AS [facility] Final Result documented in this encounter Visit Diagnoses Not on filedocumented in this encounter Care Teams Physical Therapy Instructor Relationship Specialty Start Date End Date Paul Villatoro MD [address] [place] [address] PCP - General Family Medicine 09/13/23 Teresa Portillo MD [address] [place] [address] Referring Physician Family Medicine 07/05/23 documented as of this encounter
--- OUTSIDE RECORDS SUMMARY | 2024-07-06 17:50 | XMS_ITS | Encounter Summary ---
Author Organization [facility] Address [address] [place] [address] Care Team Providers Care Pitch Gatherer Name Role Phone Teresa Portillo MD Unavailable [phone] Paul Villatoro MD Primary Care Provider [phone] Encounter Details Date Type Department Care Team (Late st Contact Info) Description 04/11/2024 Abstract [facility] [address] [place] [address] Salvatore Bryson, DPM FACFAS [address] [place] [address] Social History Tobacco Use Types Packs/Day Years [...] on filedocumented in this encounter Care Teams Pitch Gatherer Relationship Specialty Start Date End Date Paul Villatoro MD [address] [place] [address] PCP - General Family Medicine 09/13/23 Teresa Portillo MD [address] [place] [address] Referring Physician Family Medicine 07/05/23 documented as of this encounter
--- OUTSIDE RECORDS SUMMARY | 2024-07-06 17:50 | XMS_ITS | Encounter Summary ---
Author Organization [facility] Address [address] [place] [address] Care Team Providers Care Arcade Game Technician Name Role Phone Teresa Portillo MD Unavailable [phone] Paul Villatoro MD Primary Care Provider [phone] Encounter Details Date Type Department Care Team (Late st Contact Info) Description 04/11/2024 Abstract [facility] [address] [place] [address] Salvatore Bryson, DPM FACFAS [address] [place] [address] Social History Tobacco Use Types Packs/Day Years [...] on filedocumented in this encounter Care Teams Arcade Game Technician Relationship Specialty Start Date End Date Paul Villatoro MD [address] [place] [address] PCP - General Family Medicine 09/13/23 Teresa Portillo MD [address] [place] [address] Referring Physician Family Medicine 07/05/23 documented as of this encounter
--- OUTSIDE RECORDS SUMMARY | 2024-07-06 17:50 | XMS_ITS | Encounter Summary ---
Author Organization [facility] Address [address] [place] [address] Care Team Providers Care Hot Pond Operator Name Role Phone Teresa Portillo MD Unavailable [phone] Paul Villatoro MD Primary Care Provider [phone] Encounter Details Date Type Department Care Team (Late st Contact Info) Description 07/12/2023 Abstract [facility] [address] [place] [address] Salvatore Bryson, DPM FACFAS [address] [place] [address] Social History Tobacco Use Types Packs/Day Years [...] on filedocumented in this encounter Care Teams Hot Pond Operator Relationship Specialty Start Date End Date Paul Villatoro MD [address] [place] [address] PCP - General Family Medicine 09/13/23 Teresa Portillo MD [address] [place] [address] Referring Physician Family Medicine 07/05/23 documented as of this encounter
--- OUTSIDE RECORDS SUMMARY | 2024-07-06 17:51 | XMS_ITS | Patient Health Record ---
Author Organization [facility] in [place] Address [address] [place] [address] Care Team Providers Care Slps Name Role Phone Teresa De Primary Care Provider [phone] TERESA DE Unavailable [phone] HoWilbert carvajal Unavailable [phone] Allergies No Known Allergies Results Component Value Reference Range Notes MM tomosynthesis screening B I Reviewed date:07/22/2023 03:55:49 PM Interpretation: Performing Lab: Notes/Report: Source Facility: [place] [address] Mammography Report Signed Patient: CIELO RAY MR#: [id number] : 1965 Acct:[id number] Age/Sex: 57 / F ADM Date: 07/21/23 Loc: MAMMO Attending Dr: TERESA DE Ordering Physician: TERESA DE Results: Date of Service: 07/21/23 Follow Up: Procedure(s): MM tomosynthesis screening BI Accession Number(s): [id number] cc: TERESA DE Patient Name: CIELO RAY MR#: [id number] : 1965 Exam Date: 07/21/2023 Ordering Doctor: TERESA DE SENIOR TRAINING AND DEVELOPMENT REP RADIOLOGY REPORT PROCEDURE: MM TOMOSYNTHESIS SCREENING BI COMPARISON: MM TOMOSYNTHESIS SCREENING BI, 07/20/2022. MG MAMM SCREEN 3D MICHELLE CAD, 07/16/2021. MG MAMM SCREEN 3D MICHELLE CAD, 07/01/2020. MG MAMM SCREEN MICHELLE W CAD, 04/12/2017. INDICATIONS: Screening Calculator Name NCI Breast Cancer Risk Assessment Tool 5 Year Breast Cancer Risk 2.50% Lifetime Breast Cancer Risk 14.50% Personal Breast Cancer No Personal Ovarian Cancer No Treatments None Family Cancers Mother with breast cancer at age 55. LOCATION: [facility] BREAST COMPOSITION: The breasts are heterogeneously dense,which may obscure small masses. FINDINGS: DIAGNOSTIC CATEGORY 2--BENIGN FINDING: RIGHT BREAST: No significant suspicious finding. Scattered benign-appearing calcifications are present. No significant change has occurred. LEFT BREAST: No significant suspicious finding. Scattered benign-appearing calcifications are present. No significant change has occurred. RECOMMENDATIONS: ROUTINE MAMMOGRAM AND CLINICAL EVALUATION IN 12 MONTHS. PLEASE NOTE: A NORMAL MAMMOGRAM DOES NOT EXCLUDE THE POSSIBILITY OF BREAST CANCER. A CLINICALLY SUSPICIOUS PALPABLE LUMP SHOULD BE BIOPSIED. Dictated by: Hayden Perla M.D. on 07/22/2023 at 15:03 Approved by: Hayden Perla M.D. on 07/22/2023 at 15:05 Dictated By: Hayden Perla M.D. Signed By: 07/22/23 1506 DD/ 1505 TD/TT: Public Policy Professor: [place] [address] Mammography Report Signed Patient: JASON RAY MR#: [id number] : 1965 Acct:[id number] Age/Sex: 57 / F ADM Date: 07/21/23 Loc: MAMMO Attending Dr: TERESA DE Ordering Physician: TERESA DE Results: Date of Service: 08/07 Follow Up: Procedure(s): MM tomosynthesis screening BI Accession Number(s): [id number] cc: TERESA DE Patient Name: CIELO RAY MR#: [id number] : 1965 Exam Date: 07/21/2023 Ordering Doctor: [facility]ILIP[facility] RADIOLOGY REPORT PROCEDURE: MM TOMOSYNTHESIS SCREENING BI COMPARISON: MM TOMOSYNTHESIS SCREENING BI, 07/20/2022. MG MAMM SCREEN 3D MICHELLE CAD, 07/16/2021. MG MAMM SCREEN 3D MICHELLE CAD, 07/01/2020. MG MAMM SCREEN MICHELLE W CAD, 04/12/2017. INDICATIONS: Screening Calculator Name NCI Breast Cancer Risk Assessment Tool 5 Year Breast Cancer Risk 2.50% Lifetime Breast Canc er Risk 14.50% Personal Breast Cancer No Personal Ovarian Can cer No Treatments None Family Cancers Carmine french with breast cancer at age 55. LOCATION: [facility] BREAST COMPOSITION: The breasts are heterogeneously dense,which may obscure small masses. FINDINGS: DIAGNOSTIC CATEGORY 2--BENIGN FINDING: RIGHT BREAST: No significant suspicious finding. Scattered benign-appearing calcifications are present. No significant change has occurred. LEFT BREAST: No significant suspicious finding. Scattered benign-appearing calcifications are present. No significant change has occurred. RECOMMENDATIONS: ROUTINE MAMMOGRAM AN D CLINICAL EVALUATION IN 12 MONTHS. PLEASE NOTE: A KAT L MAMMOGRAM DOES NOT EXCLUDE THE POSSIBILITY OF BREAST CANCER. A CLINICALLY SUSPICIOUS PALPABLE LUMP SHOULD BE BIOPSIED. Dictated by: Hayden Perla M.D. on 07/22/2023 at 15:03 Approved by: Hayden Perla M.D. on 07/22/2023 at 15:05 Dictated By: Hayden Perla M.D. Signed By: 07/22/23 1506 DD/ 1505 TD/TT: Public Policy Professor: CBC AUTO DIFF Reviewed date:09/26/2023 04:05:27 PM Interpretation: Performing Lab: Notes/Report: [facility] , White Blood Count 7.4 4.0-11.0 10 3/uL Red Blood Count 4.00 4.20-5.40 10 6/uL Hemoglobin 12.7 12.0-16.0 g/dL Hematocrit 38.8 36.0-48.0 % Mean Corpuscular Volume 97.0 81.0-99.0 fL Mean Corpuscular Hemoglobin 31.8 26.7-34.0 pg Mean Corpuscular HGB Conc 32.7 29.9-35.2 g/dL Red Cell Distribution Width 13.5 11.0-15.0 % Platelet Count 267 150-450 10 3/uL Mean Platelet Volume 8.8 9.5-13.5 fL Neutrophils Percent Auto 68.8 43.0-75.0 % Lymphocytes Percent Auto 23.5 20.5-60.0 % Monocytes Percent Auto 4.6 1.7-12.0 % Eosinophils Percent Auto 2.4 0.9-7.0 % Basophils Percent Auto 0.4 0.2-2.0 % Immature Granulocytes Pct Auto 0.3 0.0-0.5 % Neutrophils Absolute Auto 5.1 1.4-6.5 10 3/uL Lymphocytes Absolute Auto 1.7 1.2-3.8 10 3/uL Monocytes Absolute Auto 0.3 0.3-0.8 10 3/uL Eosinophils Absolute Auto 0.2 0.0-0.7 10 3/uL Basophils Absolute Auto 0.0 0.0-0.1 10 3/uL Immature Granulocytes Abs Auto 0.02 0.00-0.03 10 3/uL Performing Lab: see note ML - [facility] CREATININE Reviewed date:09/26/2023 04:05:27 PM Interpretation: Performing Lab: Notes/Report: [facility] , Creatinine 1.01 0.55-1.02 mg/dL Estimated GFR ( Sarah >60 >=60 Estimated GFR (Non- Kriss 56 >=60 Performing Lab: see note ML - [facility] LIVER PROFILE Reviewed date:09/26/2023 04:05:27 PM Interpretation: Performing Lab: Notes/Report: [facility] , Bilirubin Total 0.7 0.2-1.0 mg/dL Bilirubin Direct 0.1 0.0-0.2 mg/dL Aspartate Amino Transferase 26 15-37 U/L Alanine Aminotransferase 37 14-59 U/L Alkaline Phosphatase 88 46-116 U/L Total Protein 7.1 6.4-8.2 g/dL Albumin Level 3.4 3.4-5.0 g/dL Globulin 3.7 Albumin Globulin Ratio 0.9 Performing Lab: see note ML - [facility] LB Erythrocyte Sedimentation Ra te Reviewed date:09/26/2023 04:05:27 PM Interpretation: Performing Lab: Notes/Report: [facility] , Erythrocyte Sedimentation Rate 62 <=30 mm/hr Performing Lab: see note - [facility] LB MR foot RT wo con Reviewed date:10/21/2023 08:38:49 AM Interpretation: Performing Lab: Notes/Report: Source Facility: [facility]-[address] [address] Magnetic Resonance Report Signed Patient: CIELO RAY MR#: [id number] : 1965 Acct:[id number] Age/Sex: 57 / F ADM Date: 10/18/23 Loc: MRI Attending Dr: Luiz Alcaraz M.D. Ordering Physician: Luiz Alcaraz M.D. Date of Service: 10/18/23 Procedure(s): MR foot RT wo con Accession Number(s): [id number] cc: TERESA DE ; Luiz Alcaraz M.D. [place] [address] Patient Name: CIELO RAY MRN: [id number] date: 1965 Sex: F Assigned Patient Location: MRI Current Patient Location: Accession/Order Number: [id number] Exam Date: 10/18/2023 15:45 Report Date: 10/19/2023 [...] flexor tendons are intact. Electronically authenticated by: THAI JEAN Date: 10/19/2023 12:11 Dictated By: Thai Jean M.D. Signed By: 10/19/23 1213 DD/ 1211 TD/TT: Public Policy Professor: [place] [address] Magnetic Resonance Report Signed Patient: JASON RAY MR#: [id number] : 1965 Acct:[id number] Age/Sex: 57 / F ADM Date: 10/18/23 Loc: MRI Attending Dr: Luiz Alcaraz M.D. Ordering Physician: Luiz Alcaraz M.D. Date of Service: 10/18/23 Procedure(s): maddison t RT wo con Accession Number(s): [id number] cc: TERESA DE ; Luiz Alcaraz M.D. [facility] [place] [address] Patient Name: CIELO RAY MRN: [id number] date: 1965 Sex: F Assigned Patient Location: MRI Current Patient Location: Accession/Order Numb er: [id number] Exam Date: 10/18/2023 15:45 Report Date: 10/19/2023 12:11 At the request of: LUIZ ALCARAZ Procedure: MR foot R T wo con EXAM: MR foot RT wo con HISTORY: Right Metat arsal Deformity, Arciniega Neuroma COMPARISON: None. TECHNIQUE: MRI image s obtained with multiple sequences. MRI of the right foot without contrast. Sequences obtained by standard department protocol. FINDINGS: No ankle joint effus ion. No subtalar joint effusion. No significant degeneration at the ankle joint or subtalar joint. Achilles tendon and plantar fascia are intact. Mild degeneration at the second tarsometatarsal joint. Extensor and flexor tendons are intact. Mild to moderate atr ophy of the intrinsic/plantar musculature of the foot. Soft tissue mass at the third interspace, measuring approximately 1.3 x 1.6 cm (axial T2 image 6, a xial T1 image 6). 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 Nonspecific edema at the third metatarsal head, possibly degenerative or posttraumatic M R/MR foot RT wo con IMPRESSION: 1. Soft tissue mass at the third interspace, measuring approximately 1.3 x 1.6 cm (axial T2 image 6 , axial T1 image 6). 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 2. Nonspecific edema at the third metatarsal head, considerations include degenerative or posttraumatic etiologies. 3. Extensor and flex or tendons are intact. Electronically authenticated by: THAI JEAN Date: 10/19/2023 12:11 Dictated By: Toney Jean M.D. Signed By: 10/19/23 1213 DD/ 121 TD/TT: Public Policy Professor: CBC AUTO DIFF Reviewed date:02/13/2024 08:20:04 AM Interpretation: Performing Lab: Notes/Report: [facility] , White Blood Count 7.4 4.0-11.0 10 3/uL Red Blood Count 4.22 4.20-5.40 10 6/uL Hemoglobin 13.2 12.0-16.0 g/dL Hematocrit 41.3 36.0-48.0 % Mean Corpuscular Volume 97.9 81.0-99.0 fL Mean Corpuscular Hemoglobin 31.3 26.7-34.0 pg Mean Corpuscular HGB Conc 32.0 29.9-35.2 g/dL Red Cell Distribution Width 13.6 11.0-15.0 % Platelet Count 240 150-450 10 3/uL Mean Platelet Volume 8.6 9.5-13.5 fL Neutrophils Percent Auto 61.2 43.0-75.0 % Lymphocytes Percent Auto 24.5 20.5-60.0 % Monocytes Percent Auto 8.6 1.7-12.0 % Eosinophils Percent Auto 4.9 0.9-7.0 % Basophils Percent Auto 0.4 0.2-2.0 % Immature Granulocytes Pct Auto 0.4 0.0-0.5 % Neutrophils Absolute Auto 4.5 1.4-6.5 10 3/uL Lymphocytes Absolute Auto 1.8 1.2-3.8 10 3/uL Monocytes Absolute Auto 0.6 0.3-0.8 10 3/uL Eosinophils Absolute Auto 0.4 0.0-0.7 10 3/uL Basophils Absolute Auto 0.0 0.0-0.1 10 3/uL Immature Granulocytes Abs Auto 0.03 0.00-0.03 10 3/uL Performing Lab: see note ML - [facility] LB CREATININE Reviewed date:02/13/2024 08:20:04 AM Interpretation: Performing Lab: Notes/Report: [facility] , Creatinine 0.87 0.55-1.02 mg/dL Estimated GFR ( Sarah >60 >=60 mL/min/1.73m 2 Estimated GFR (Non- Kriss >60 >=60 mL/min/1.73m 2 Performing Lab: see note ML - [facility] LB LIVER PROFILE Reviewed date:02/13/2024 08:20:04 AM Interpretation: Performing Lab: Notes/Report: [facility] , Bilirubin Total 0.6 0.2-1.0 mg/dL Bilirubin Direct 0.1 0.0-0.2 mg/dL Aspartate Amino Transferase 17 15-37 U/L Alanine Aminotransferase 29 14-59 U/L Alkaline Phosphatase 94 46-116 U/L Total Protein 7.2 6.4-8.2 g/dL Albumin Level 3.3 3.4-5.0 g/dL Globulin 3.9 Albumin Globulin Ratio 0.8 Performing Lab: see note ML - [facility] LB Erythrocyte Sedimentation Ra te Reviewed date:02/13/2024 08:20:04 AM Interpretation: Performing Lab: Notes/Report: [facility] , Erythrocyte Sedimentation Rate 44 <=30 mm/hr Performing Lab: see note ML - [facility] LB ECG 12 lead Reviewed date:03/01/2024 08:58:55 AM Interpretation: Performing Lab: Notes/Report: Source Facility: [facility]-[address] [place] [address] [place] [address] Electrocardiograph Report Signed Patient: CIELO RAY MR#: [id number] : 1965 Acct:[id number] Age/Sex: 58 / F ADM Date: 02/29/24 Loc: CARD Attending Dr: LUIZ BOOTHE M.D. Ordering Physician: LUIZ BOOTHE M.D. Date of Service: 02/29/24 Procedure(s): ECG 12 lead Accession Number(s): [id number] cc: [facility] Test Date: 2024-02-29 Pat Name: CIELO RAY Department: Room: - Gender: Female Budget Report Clerk: : 1965 Requested By: 0719 Order Number: [id number] Reading MD: JOEY DE Measurements Intervals [place] Rate: 86 P: 68 [place]: 162 QRS: 57 QRSD: 90 T: 51 QT: 351 QTc: 421 Interpretive Statements SINUS RHYTHM No previous ECG available for comparison Electronically Signed On 02-29-2024 20:47:12 EST by JOEY DE Dictated By: Joey De D.O. Signed By: 02/29/24204602/29/242046 DD/ 150 TD/TT: Public Policy Professor: [place] [address] Electrocardiograph Report Signed Patient: JASON RAY MR#: [id number] : 1965 Acct:[id number] Age/Sex: 58 / F ADM Date: 02/29/24 Loc: CARD Attending Dr: LUIZ NATARAJAN M.D. Ordering Physician: LUIZ BOOTHE M.D. Date of Service: 02/29/24 Procedure(s): ECG 12 lead Accession Number(s): [id number] cc: [facility] Test Date: 2024-02-29 Pat Name: CIELO VIZCARRA Department: 50 Room: - Gender: Female Budget Report Clerk: : 1965 Requested By: 0719 Order Number: [id number] Reading MD: JOEY DE Measurements Intervals [place] Rate: 86 P: 68 [place]: 162 QRS: 57 QRSD: 90 T: 51 QT: 351 QTc: 421 Interpretive Statements SINUS RHYTHM No previous ECG avai lable for comparison Electronically Keri d On 02-29-2024 20:47:12 EST by JOEY DE Dictated By: Joey De D.O. Signed By: 02/29/24204602/29/242046 DD/ 1507 TD/TT: Public Policy Professor: CBC AUTO DIFF Reviewed date:03/13/2024 10:57:51 AM Interpretation: Performing Lab: Notes/Report: [facility] , White Blood Count 6.6 4.0-11.0 10 3/uL Red Blood Count 4.42 4.20-5.40 10 6/uL Hemoglobin 13.8 12.0-16.0 g/dL Hematocrit 42.6 36.0-48.0 % Mean Corpuscular Volume 96.4 81.0-99.0 fL Mean Corpuscular Hemoglobin 31.2 26.7-34.0 pg Mean Corpuscular HGB Conc 32.4 29.9-35.2 g/dL Red Cell Distribution Width 13.2 11.0-15.0 % Platelet Count 268 150-450 10 3/uL Mean Platelet Volume 8.9 9.5-13.5 fL Performing Lab: see note ML - [facility] FREE T3 Reviewed date:03/13/2024 10:57:51 AM Interpretation: Performing Lab: Notes/Report: [facility] , Free T3 2.70 2.18-3.98 pg/mL Performing Lab: see note ML - [facility] GLYCOHEMOGLOBIN A1C Reviewed date:03/13/2024 10:57:51 AM Interpretation: Performing Lab: Notes/Report: [facility] , Glycohemoglobin A1C 5.3 4.5-6.2 % ADA THERAPEUTIC TARGET < 7.0 ACTION SUGGESTED > 7.0 ADA RECOMMENDED LIMIT 4.0 - 6.0 Estimated Average Glucose 105 Performing Lab: see note ML - [facility] INSULIN Reviewed date:03/13/2024 10:57:51 AM Interpretation: Performing Lab: Notes/Report: [facility] , Insulin 27.4 2.6-24.9 uIU/mL [address] [place] [place], [place] [id number] Performed at: [facility] Retort Cooler: Charlie Arevalo PhD, Phone: [phone] Performing Lab: see note - [facility] LB IRON Reviewed date:03/13/2024 10:57:51 AM Interpretation: Performing Lab: Notes/Report: [facility] , Iron 63.0 50.0-170.0 ug/dL Performing Lab: see note ML - [facility] LB LIPID PROFILE Reviewed date:03/13/2024 10:57:51 AM Interpretation: Performing Lab: Notes/Report: [facility] , Triglycerides 52 <=150 mg/dL Cholesterol 238 <=200 mg/dL HDL Cholesterol 98 40-60 mg/dL > or =60 mg/dl - LOW CARDIOVASCULAR RISK <40 mg/dl - HIGH CARDIOVASCULAR RISK LDL Cholesterol Calculated 130.0 <100 mg/dl OPTIMAL 160-189 mg/dl HIGH >190 mg/dl VERY HIGH 130-159 mg/dl BORDERLINE HIGH 100-129 mg/dl NEAR OR ABOVE OPTIMAL VLDL CHOLESTEROL 10.4 Chol HDL Ratio 2.4 3.3 - 4.4 LOW RISK 7.1 - 11.0 MODERATE RISK >11.0 HIGH RISK 4.4 - 7.1 AVERAGE RISK Performing Lab: see note - [facility] PROF 14(COMP METB) Reviewed date:03/13/2024 10:57:51 AM Interpretation: Performing Lab: Notes/Report: [facility] , Sodium 139 136-145 mmol/L Potassium 4.1 3.5-5.1 mmol/L Chloride 103 98-107 mmol/L Carbon Dioxide 27.4 21.0-32.0 mmol/L Anion Gap 12.7 Glucose 99 74-106 mg/dL Blood Urea Nitrogen 13.0 7.0-18.0 mg/dL Creatinine 0.88 0.55-1.02 mg/dL Estimated GFR ( Sarah >60 >=60 mL/min/1.73m 2 Estimated GFR (Non- Kriss >60 >=60 mL/min/1.73m 2 BUN Creatinine Ratio 14.8 Calcium 9.0 8.5-10.1 mg/dL Bilirubin Total 1.0 0.2-1.0 mg/dL Aspartate Amino Transferase 35 15-37 U/L Alanine Aminotransferase 53 14-59 U/L Alkaline Phosphatase 108 46-116 U/L Total Protein 7.9 6.4-8.2 g/dL Albumin Level 3.6 3.4-5.0 g/dL Globulin 4.3 Albumin Globulin Ratio 0.8 Performing Lab: see note - [facility] LB T4 Reviewed date:03/13/2024 10:57:51 AM Interpretation: Performing Lab: Notes/Report: [facility] , T4 Thyroxine 7.40 4.80-13.90 ug/dL Performing Lab: see note - [facility] LB TSH Reviewed date:03/13/2024 10:57:51 AM Interpretation: Performing Lab: Notes/Report: [facility] , Thyroid Stimulating Hormone 0.587 0.358-3.740 uIU/mL Performing Lab: see note - [facility] LB VITAMIN D 25 [place] Reviewed date:03/13/2024 10:57:51 AM Interpretation: Performing Lab: Notes/Report: [facility] , Vitamin D 34.2 <20 ng/mL Vit D deficient 30-100 ng/mL Vit D sufficient 20-<30 ng/mL Vit D insufficient >100 ng/mL Potential Toxicity Performing Lab: see note - [facility] LB Erythrocyte Sedimentation Ra te Reviewed date:03/13/2024 10:57:51 AM Interpretation: Performing Lab: Notes/Report: [facility] , Erythrocyte Sedimentation Rate 59 <=30 mm/hr Performing Lab: see note [facility] LB Manual Differential Reviewed date:03/13/2024 10:57:51 AM Interpretation: Performing Lab: Notes/Report: [facility] , Segmented Neutrophils % Manual 90.0 43.0-75.0 Lymphocytes Percent Manual 6.0 20.5-60.0 % Monocytes Percent Manual 4.0 1.7-12.0 % Eosinophils Percent Manual 0.0 0.9-7.0 % Basophils Percent Manual 0.0 0.2-2.0 % Segmented Neut Absolute Manual 5.94 1.4-6.5 10 3/uL Lymphocytes Absolute Manual 0.39 1.20-3.80 10 3/uL Monocytes Absolute Manual 0.26 0.30-0.80 10 3/uL Eosinophils Absolute Manual 0.00 0.00-0.70 10 3/uL Basophils Abs Manual 0.00 0.00-0.10 1 0 3/uL Performing Lab: see note - [facility] LB CBC AUTO DIFF Reviewed date:04/02/2024 11:09:48 AM Interpretation: Performing Lab: Notes/Report: [facility] , White Blood Count 7.4 4.0-11.0 10 3/uL Red Blood Count 4.42 4.20-5.40 10 6/uL Hemoglobin 13.8 12.0-16.0 g/dL Hematocrit 42.5 36.0-48.0 % Mean Corpuscular Volume 96.2 81.0-99.0 fL Mean Corpuscular Hemoglobin 31.2 26.7-34.0 pg Mean Corpuscular HGB Conc 32.5 29.9-35.2 g/dL Red Cell Distribution Width 12.9 11.0-15.0 % Platelet Count 258 150-450 10 3/uL Mean Platelet Volume 9.1 9.5-13.5 fL Neutrophils Percent Auto 61.5 43.0-75.0 % Lymphocytes Percent Auto 22.6 20.5-60.0 % Monocytes Percent Auto 9.6 1.7-12.0 % Eosinophils Percent Auto 5.1 0.9-7.0 % Basophils Percent Auto 0.9 0.2-2.0 % Immature Granulocytes Pct Auto 0.3 0.0-0.5 % Neutrophils Absolute Auto 4.5 1.4-6.5 10 3/uL Lymphocytes Absolute Auto 1.7 1.2-3.8 10 3/uL Monocytes Absolute Auto 0.7 0.3-0.8 10 3/uL Eosinophils Absolute Auto 0.4 0.0-0.7 10 3/uL Basophils Absolute Auto 0.1 0.0-0.1 10 3/uL Immature Granulocytes Abs Auto 0.02 0.00-0.03 10 3/uL Performing Lab: see note ML - [facility] LB CREATININE Reviewed date:04/02/2024 11:09:48 AM Interpretation: Performing Lab: Notes/Report: [facility] , Creatinine 0.97 0.55-1.02 mg/dL Estimated GFR ( Sarah >60 >=60 mL/min/1.73m 2 Estimated GFR (Non- Kriss 59 >=60 mL/min/1.73m 2 Performing Lab: see note ML - [facility] LB LIVER PROFILE Reviewed date:04/02/2024 11:09:48 AM Interpretation: Performing Lab: Notes/Report: [facility] , Bilirubin Total 0.7 0.2-1.0 mg/dL Bilirubin Direct 0.1 0.0-0.2 mg/dL Aspartate Amino Transferase 32 15-37 U/L Alanine Aminotransferase 51 14-59 U/L Alkaline Phosphatase 112 46-116 U/L Total Protein 7.5 6.4-8.2 g/dL Albumin Level 3.3 3.4-5.0 g/dL Globulin 4.2 Albumin Globulin Ratio 0.8 Performing Lab: see note ML - [facility] LB Erythrocyte Sedimentation Ra te Reviewed date:04/02/2024 11:09:48 AM Interpretation: Performing Lab: Notes/Report: [facility] , Erythrocyte Sedimentation Rate 41 <=30 mm/hr Performing Lab: see note ML - [facility] LB CBC AUTO DIFF Reviewed date:05/09/2024 11:52:31 AM Interpretation: Performing Lab: Notes/Report: [facility] , White Blood Count 6.0 4.0-11.0 10 3/uL Red Blood Count 4.21 4.20-5.40 10 6/uL Hemoglobin 12.9 12.0-16.0 g/dL Hematocrit 39.7 36.0-48.0 % Mean Corpuscular Volume 94.3 81.0-99.0 fL Mean Corpuscular Hemoglobin 30.6 26.7-34.0 pg Mean Corpuscular HGB Conc 32.5 29.9-35.2 g/dL Red Cell Distribution Width 13.3 11.0-15.0 % Platelet Count 233 150-450 10 3/uL Mean Platelet Volume 9.2 9.5-13.5 fL Neutrophils Percent Auto 52.3 43.0-75.0 % Lymphocytes Percent Auto 32.9 20.5-60.0 % Monocytes Percent Auto 8.3 1.7-12.0 % Eosinophils Percent Auto 5.3 0.9-7.0 % Basophils Percent Auto 1.0 0.2-2.0 % Immature Granulocytes Pct Auto 0.2 0.0-0.5 % Neutrophils Absolute Auto 3.2 1.4-6.5 10 3/uL Lymphocytes Absolute Auto 2.0 1.2-3.8 10 3/uL Monocytes Absolute Auto 0.5 0.3-0.8 10 3/uL Eosinophils Absolute Auto 0.3 0.0-0.7 10 3/uL Basophils Absolute Auto 0.1 0.0-0.1 10 3/uL Immature Granulocytes Abs Auto 0.01 0.00-0.03 10 3/uL Performing Lab: see note ML - [facility] LB CREATININE Reviewed date:05/09/2024 11:52:31 AM Interpretation: Performing Lab: Notes/Report: [facility] , Creatinine 0.92 0.55-1.02 mg/dL Estimated GFR ( Sarah >60 >=60 mL/min/1.73m 2 Estimated GFR (Non- Kriss >60 >=60 mL/min/1.73m 2 Performing Lab: see note ML - [facility] LB LIVER PROFILE Reviewed date:05/09/2024 11:52:31 AM Interpretation: Performing Lab: Notes/Report: [facility] , Bilirubin Total 0.6 0.2-1.0 mg/dL Bilirubin Direct 0.1 0.0-0.2 mg/dL Aspartate Amino Transferase 45 15-37 U/L Alanine Aminotransferase 51 14-59 U/L Alkaline Phosphatase 93 46-116 U/L Total Protein 7.1 6.4-8.2 g/dL Albumin Level 3.6 3.4-5.0 g/dL Globulin 3.5 Albumin Globulin Ratio 1.0 Performing Lab: see note - [facility] LB Erythrocyte Sedimentation Ra te Reviewed date:05/09/2024 11:52:23 AM Interpretation: Performing Lab: Notes/Report: [facility] , Erythrocyte Sedimentation Rate 33 <=30 mm/hr Performing Lab: see note ML - [facility] LB Reason For Referral No Information Medications Medication SIG (Take, Route, Frequency, Duration) Notes Start Date End Date Status Arthritis Pain Activ e Cephalexin 500 MG 2 capsule Orally BID for 10 days 07/06/2024 Active Cetirizine HCl 10 MG TAKE 1 TABLET BY [facility] EVERY DAY FOR 30 DAYS for 90 Active Fluticasone Propionate 50 MCG/ACT 1 spray in each nostril Nasally Once a day Active Cyclobenzaprine HCl 10 MG TAKE 1 TABLET BY MOUTH EVERY DAY AT BEDTIME NEEDED FOR 30 DAYS for 90 Active Leflunomide 20 MG Oral for 28 Days Active Folic Acid 1 MG 1 tablet Orally BID Active Meclizine HCl 25 MG 1 tablet as needed Orally every 12 hrs for 7 days 06/16/2023 Active Meloxicam 15 MG TAKE 1 TABLET BY MARIAH EVERY DAY for 30 Active Social History Tobacco Use: Social History Observation Description Date Details (start date - stop date) Never Smoker NA - NA Alcohol Screen (Audit-C) Question Answer Notes Did you have a drink contain ing alcohol in the past year? Yes How often did you have 6 or more drinks on one occasion in the past year? Monthly or less (1 point) How many drinks did you have on a typical day when you were drinking in the past year? 5 or 6 drinks (2 points) How often did you have a dri nk containing alcohol in the past year? Less than monthly (1 point) Points 4 Interpretation Positive Tobacco Control (Standard) Question Answer Notes Tobacco use: Nonsmoker AUDIT-C (Standard) Question Answer Notes Did you have a drink contain ing alcohol in the past year? Yes How often did you have six o r more drinks on one occasion in the past year? Never (0 point) How many drinks did you have on a typical day when you were drinking in the past year? 1 or 2 drinks (0 point) How often did you have a dri nk containing alcohol in the past year? Monthly or less (1 point) Points 1 Interpretation Negative Problems Problem Type SNOMED Code ICD Code Onset Dates Problem Status W/U Status Risk Notes Problem 17507656 Generalized anxiety disorder (F41.1) Active confirmed Problem 15081342 Venous insufficiency (chronic) (peripheral) (I87.2) Active confirmed Problem 305675216 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) Active confirmed Problem 607697234 Spondylosis without myelopathy or radiculopathy, cervical region (M47.812) Active confirmed Problem Exposure to communicable disease (669074600) Contact with and (suspected) exposure to other viral communicable diseases (Z20.828) Active confirmed Problem Anxiety (57706210) Anxiety (F41.9) Active confi rmed Problem Dizziness (995091504) Dizziness (R42) Active confirmed Problem 051637024 Diverticulosis (K57.90) Active confirmed Problem Arthralgia of the pelvic region and thigh (973819865) Hip pain, left (M25.552) Active confirmed Problem 760918813 Borderline hypertension (R03.0) Active confirmed Problem Serous otitis media (52268243) Serous otitis media (H65.90) Active confirmed Problem Costochondritis (83230834) Costochondritis (M94.0) Active confirmed Problem Diverticulitis (55036748) Diverticulitis (K57.92) Active confirmed Problem Angular cheilitis (369322838) Angular cheilitis (K13.0) Active confirmed Problem Ear pain, right (H92.01) Active confirmed Problem 26977248 DDD (degenerativ e disc disease), cervical (M50.30) Active confirmed Problem Dysfunction of left eustachian tube (2317567713937433) Eustachian tube dysfunction, left (H69.82) Active confirmed Problem Muscle spasm (99094119) Muscle spasm (M62.838) Active confirmed Problem Overweight (911578034) Over weight (E66.3) Active confirmed Problem Dysfunction of right eustachian tube (disorder) (8336077854398718) Eustachian tube dysfunction, right (H69.81) Active confirmed Problem Annual wellness visit (055956762189027) Wellness examination (Z00.00) Active confirmed Problem Chronic rheumatic arthritis (4295111294) Chronic rheumatic arthritis (M06.9) Active confirmed Problem Medial epicondylitis of elbow joint (23488751) Golfers elbow, left (M77.02) Active confirmed Problem 13416579 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) Active confirmed Vital Signs Heart Rate 89 /min 02/27/2024 Temperature 98.0 degrees Fahrenheit 07/06/2024 Oximetry 96 % 02/27/2024 Blood pressure diastolic 90 mm Hg 07/06/2024 Height 64 in 07/06/2024 Blood pressure systolic 138 mm Hg 07/06/2024 Weight 181.4 lbs 07/06/2024 BMI 31.13 kg/m2 07/06/2024 Encounters Encounter Location Date Provider Diagnosis [facility] [address] [place] [address] 02/27/2024 Teresa De Pre-op evaluation Z01.818 and Wellness examination Z00.00 [facility] [address] [place] [address] 05/17/2024 Wilbert Hoy Strep throat J02.0 [facility] [address] [place] [address] 07/06/2024 Teresa De Left leg pain M79.60 5 and Cough R05.9 [facility] [address] [place] [address] 07/22/2023 TERESA DE [facility] [address] [facility] [place] [address] 07/26/2023 TERESA DE [facility] [address] [facility] [place] [address] 02/24/2024 Teresa Betheamer [facility] [address] [facility] [place] [address] 03/13/2024 Teresa De Assessments Encounter Date Diagnosis (ICD Code) Assessment Notes Treatment Notes Treatment Clinical Notes Section Notes 02/27/2024 Pre-op evaluation (ICD-10 - Z01.818) labs reviewed ok ekg this tue02/27/2024 Wellness examination (ICD-10 - Z00.00) ROS done exam done discussed wt, handouts given, work on diet, exercise after foot sx healed 05/17/2024 Strep throat (ICD-10 - J02.0) You have been prescribed antibiotics for strep throat. Antibiotics may bother your stomach, so try taking them with a light meal (unless instructed otherwise by your pharmacist). It is important to take them until they are finished. You can use ocqo-qgf-tpubxyk acetaminophen or ibuprofen if needed for pain. You can also use throat lozenges or gargle warm water to help with the sore throat. You are contagious until you have been on antibiotics for 24 hours. You should be extra vigilant about hand washing or using hand real estate manager gel. You should follow up with your Primary Care Physician or return to clinic if not improving in the next 3-5 days. 07/06/2024 Left leg pain (ICD-10 - M79.605) probable cellulitis close monitoring if not improving 24-48 hours, getting worse on abx, needs to be seen US tonight 6 pm 07/06/2024 Cough (ICD-10 - R05.9) likely viral at this point otc meds Plan Of Treatment Pending Test Test Name Order Date HEMOGLOBIN A1C (GLYCO) 02/27/2024 IRON, TOTAL 02/27/2024 LIPID PANEL (CHOL/TRIG/HDL/LDL) 02/26/19 25 VITAMIN D, 25 LEVEL (TOTAL) 02/27/2024 Insulin Level 02/27/2024 US SABRINA DOP LEG LT 07/06/2024 THYROID PANEL (T4/TSH/FREE T3) 5 CMP (COMP MET ALVAREZ) w/eGFR CKD-EPI 2024 Insurance Providers Payer Name Payer Address Payer Phone Subscriber Number Group Number Insured Name Patient Relationship to Insured Coverage Start Date Coverage End Date TANIYA GAGE [address] [place] [address] [id number] Cielo Ray Self - patient is the insured Medications Administered Medication Instructions Date of Administration Dosage Notes Ketorolac Tromethamine 06/13/2023 60 mg 60 Ketorolac Tromethamine 06/14/2023 60 mg Orphenadrine Citrate 06/13/2023 60 mg Orphenadrine Citrate 06/14/2023 60 mg Medical (General) History Medical History History ICD Code Eustachian tube dysfunction, right H69.8 1 Ear pain, right H92.01 Hip pain, left M25.552 Golfers elbow, left M77.02 Over weight E66.3 Dizziness R42 Muscle spasm M62.838 Anxiety F41.9 Contact with and (suspected) exposure to other viral communicable diseases Z20.828 Eustachian tube dysfunction, left H69.82 Angular cheilitis K13.0 Chronic rheumatic arthritis M06.9 Serous otitis media H65.90 Costochondritis M94.0 Diverticulitis K57.92 Wellness examination Z00.00 Surgical History Surgery Date(Month/Year) Right Foot Surgery- neuroma taken out APPENDECTOMY HYSTERECTOMY TOTAL CHOLECYSTECTOMY
== END 2024-07-06 17:49 | disposition home or self-care (01) ==
LOC: US 17:48
PROVIDERS: PCP Nurse Practitioner Family; Visit Provider Nurse Practitioner Family
DX: M79.605 Pain in left leg (principal)
CPT/HCPCS: 93971

== ENCOUNTER 2024-07-24 15:19 | Outpatient (OUT) | payer BC, SELFPAY ==
--- NOTE | 2024-07-24 15:45 | MM_ITS ---
Patient Name: CIELO STEVENS MR#: [id number] : 1965 Exam Date: 07/24/2024 Ordering Doctor: MARILYN DE CNP RADIOLOGY REPORT PROCEDURE: MM TOMOSYNTHESIS SCREENING BI COMPARISON: MM TOMOSYNTHESIS SCREENING BI, 07/21/2023. MM TOMOSYNTHESIS SCREENING BI, 07/20/2022. MG MAMM SCREEN 3D MICHELLE CAD, 07/16/2021. MG MAMM SCREEN MICHELLE W CAD, 04/12/2017. INDICATIONS: Screening Calculator Name NCI Breast Cancer Risk Assessment Tool 5 Year Breast Cancer Risk 2.60% Lifetime Breast Cancer Risk 14.20% Personal Breast Cancer No Personal Ovarian Cancer No Treatments None Family Cancers Mother with breast cancer at age 45. LOCATION: [facility] BREAST COMPOSITION: There are scattered areas of fibroglandular density. FINDINGS: DIAGNOSTIC CATEGORY 1--NEGATIVE. RIGHT BREAST: No significant suspicious finding. LEFT BREAST: No significant suspicious finding. RECOMMENDATIONS: ROUTINE MAMMOGRAM AND CLINICAL EVALUATION IN 12 MONTHS. PLEASE NOTE: A NORMAL MAMMOGRAM DOES NOT EXCLUDE THE POSSIBILITY OF BREAST CANCER. A CLINICALLY SUSPICIOUS PALPABLE LUMP SHOULD BE BIOPSIED. Dictated by: Cr Vitale DO on 07/24/2024 at 15:55 Approved by: Cr Vitale DO on 07/24/2024 at 16:05
== END 2024-07-24 15:20 | disposition home or self-care (01) ==
LOC: MAMMO 15:19
PROVIDERS: PCP Nurse Practitioner Family; Visit Provider Nurse Practitioner Family
DX: Z12.31 Encounter for screening mammogram for malignant neoplasm of breast (principal); Z80.3 Family history of malignant neoplasm of breast
CPT/HCPCS: 77063; 77067

== ENCOUNTER 2024-08-13 15:52 | Inpatient (IN) | payer BC, SELFPAY ==
--- OUTSIDE RECORDS SUMMARY | 2024-08-02 12:00 | XMS_ITS ---
Author Organization [facility] in [place] Address [address] [place] [address] Care Team Providers Care Scaffold Setter Name Role Phone Bandar Teresa Primary Care Provider REASON FOR VISIT Presents to office alone for continued pain and redness to LLE Medications Medication SIG (Take, Route, Frequency, Duration) Notes Start Date End Date Status Cefdinir 300 MG one capsule Orally B ID for 14 days 08/02/2024 Active Doxycycline Monohydrate 100 MG 1 capsule Orally BID for 14 days 08/02/2024 Active Leflunomide 20 MG Oral for 28 Days Active Meclizine HCl 25 MG 1 tablet as needed Orally every 12 hrs for 7 days 06/16/2023 Active Meloxicam 15 MG TAKE 1 TABLET BY MARIAH TH EVERY DAY for 30 Active Bactrim DS 800-160 MG 1 tablet Orally BI D for 10 days 07/26/2024 Active Cetirizine HCl 10 MG TAKE 1 TABLET BY MO UTH EVERY DAY FOR 30 DAYS for 90 Active Cyclobenzaprine HCl 10 MG TAKE 1 TABLET BY MOUTH EVERY DAY AT BEDTIME NEEDED FOR 30 DAYS for 90 Active Fluticasone Propionate 50 MCG/ACT 1 spray in each nostril Nasally Once a day Active Folic Acid 1 MG 1 tablet Orally BID Active Arthritis Pain Activ e Social History [...] less (1 point) Points 1 Interpretation Negative Vital Signs Weight 175.4 lbs 08/02/2024 Height 64 in 08/02/2024 Blood pressure systolic 122 mm Hg 08/03/19 25 Blood pressure diastolic 80 mm Hg 025 Temperature 100.8 degrees Fahrenheit 025 BMI 30.1 kg/m2 08/02/2024 Encounters Encounter Location Date Provider Diagnosis [facility] [address] [place] [address] 08/02/2024 Teresa Portillo Cellulitis L03.90 Assessments Encounter Date Diagnosis (ICD Code) Assessment Notes Treatment Notes Treatment Clinical Notes Section Notes 08/02/2024 Cellulitis (ICD-10 - L03.90) 1gm Rocephin close monitoring if worse over weekend to ER let office know Tuesday how doing Plan Of Treatment Medication Medication Name Sig Start Date Stop Date Notes Cefdinir 300 MG one capsule Orally B ID for 14 days 08/02/2024 Doxycycline Monohydrate 100 MG 1 capsule Orally BID for 14 days 08/02/2024 Treatment Notes Assessment Notes Cellulitis 1gm Rocephin close monitoring if worse over weekend to ER let office know Tuesday how doing Next Appt Details Follow Up: prn, Reason: Medications Administered Medication Instructions Date of Administration Dosage Notes Ceftriaxone 1 gram 08/02/2024 1 g Progress Notes * RODNEY Brooke EDOB: 6 (58 yo F)Acc No.[id number]:08/02/2024 Progress Note Patient: Brooke DHALIWAL Provider: Kortney Portillo ([facility]), ELECTRICAL TECH :1965 A ge:58 Y S ex:Female Date:08/02/2024 Address:[address] [place] [address], [place] [id number] Check In:03:46 PM ESTCheck O ut:04:31 PM EST Subjective: * Chief Complaints: * 1 . Presents to office alone for continued pain and redness to LLE. * HPI: G eneral: taking Bactrim leg worse increased redness and pain and warmth now with low grade temp not feeling great. * ROS: G eneral/Constitutional: Fever d enies. [...] C hest pain d enies. C ough d enies. S hortness of breath d enies. W heezing d enies. ? G astrointestinal: Abdominal pain d enies. C onstipation d enies. D ecreased appetite d enies. D iarrhea d enies. N ausea d enies. V omiting?denies. G enitourinary: Urinary incontinence d enies. P ainful urination d enies. M usculoskeletal: Back pain d enies. N jerilyn pain d enies. M uscle aches d enies. S kin: Patient complaining of l eft LE redness, warmth, pain , swelling. R yenifer d enies. S kin lesion(s) d enies. * Active Problem List Z20.828 Contact with and (koo spected) exposure to other viral communicable diseases Modified On:07/16/2022 Status:confirmed F41.9 Anxiety Modified On:07/16/2022 Status:confirmed R42 Dizziness Modified On:07/16/2022 Status:confirmed H69.82 Eustachian tube dysf unction, left Modified On:07/16/2022 Status:confirmed M62.838 Muscle spasm Modified On:07/16/2022 Status:confirmed E66.3 Over weight Modified On:07/16/2022U Status:confirmed H69.81 Eustachian tube dysf unction, right Modified On:07/16/2022 Status:confirmed Z00.00 Wellness examination Modified On:07/16/2022 Status:confirmed M06.9 Chronic rheumatic ar thritis Modified On:07/16/2022 Status:confirmed M77.02 Golfers elbow, left Modified On:07/16/2022 [...] cervical Modified On:06/02/2022 Status:confirmed * Medical History: E ustachian tube dysfunction, [...] Foot Surgery- neuroma taken out . * Family History: F ather: , of heart attack at 62, diagnosed with Unspecified heart disease. M other: alive, breast cancer, diagnosed with Unspecified essential hypertension. B rother(s): alive. S ister(s): alive. 2 brother(s) , 1 sister(s) . . * Social History: T obacco Use: T obacco Control (Standard) T obacco use: N onsmoker D rug/Alcohol: A RAN-C (Standard) D id you have a drink containing alcohol in the past year? Y es H ow often did you have six or more drinks on one occasion in the past year? N ever (0 point) H ow many drinks did you have on a typical day when you were drinking in the past year? 1 or 2 drinks (0 point) H ow often did you have a drink containing alcohol in the past year? M onthly or less (1 point) P oints 1 I nterpretation N egative * Medications: T aking Arthritis Pain , Taking Bactrim DS(Sulfamethoxazole-Trimethoprim) 800-160 MG Tablet 1 tablet Orally BID , Taking Cetirizine HCl 10 MG Tablet [...] 1 TABLET BY MOUTH EVERY DAY , Medication List reviewed and reconciled with the patient Objective: * Vitals: W t:175.4lbs, Ht: 64 in, BP:122/80mm Hg, Temp:100.8F, BMI:30.1Index, Ht-cm: 162.56 cm, Wt-k.56 kg. * Examination: G eneral Examinations: GENERAL APPEARANCE: a lert and oriented, i n no acute distress. EYES: c onjunctiva normal, sclera non-icteric. NOSE: n ormal external appearance. LUNGS: c lear to auscultation bilaterally. CARDIO: r egular rate and rhythm, S1, S2 normal. MUSCULOSKELETAL: G ait and station normal. SKIN: L eft LE with redness, warmth, some swelling larger area than when last in. ? Assessment: * Assessment: 1. Moshe ramirez - L03.90 (Primary) Plan: * Treatment: * Therapeutic Injections: Ceftriaxone 1 gram : 1 g (Route: Intramuscular) given by Naye Hodgesjose , on right gluteus (Cellulitis) * Procedure Codes: J 0696 IM ROCEPHIN per 250 mg, Units: 4.00 , 19260 THERAP.INJ. OF MED. INTRAMUSCULAR OR SUBCUTANEOUS * Preventive Medicine: Screenings/Counseling: B ND ACTION PLAN Above Normal BMI Follow-up D ietary management education, guidance, and counseling See treatment section of progress note for complete details of management plan. * Follow Up: p rn * * Electronically signed by Staci Portillo , CAFE OPERATOR, LIBRARY CATALOGING TECHNICIAN.ELECTRICAL TECH.[id number] on 08/06/2024 at 09:13 AM EDT Sign off status: Completed Visit Status: C HK (Check Out) true * Provider: Kortney Portillo ([facility]), ELECTRICAL TECH Date: 08/02/2024 Generated for Magui thomas/Tashi/eTransmitting on: 0 08/14/2024 07:11 AM EDT History and Physical Notes * HPI (History of Present Illness) Category Sub-Category Detail Notes Category Not es General taking Bactrim leg worse increased redness and pain and warmth now with low grade temp not feeling great Examination Category Sub-Category Detail Notes Category Not es General Examinations GENERAL APPEARANCE: alert a nd oriented, in no acute distress EYES: conjunctiva normal, sclera non-icteric EARS: NOSE: normal external appe arance THROAT: CARDIO: regular rate and rhy thm, S1, S2 normal LUNGS: clear to auscultatio n bilaterally ABDOMEN: SKIN: Left LE with redness , warmth, some swelling larger area than when last in BACK: MUSCULOSKELETAL: Gait and station nor mal LYMPH NODES:
--- OUTSIDE RECORDS SUMMARY | 2024-08-02 12:00 | XMS_ITS ---
Author Organization [facility] in [place] Address [address] [place] [address] Care Team Providers Care Chore Worker Name Role Phone Bandar Teresa Primary Care Provider [phone] REASON FOR VISIT Presents to office alone [...] 08/02/2024 Encounters Encounter Location Date Provider Diagnosis [facility] [address] [place] [address] 08/02/2024 Teresa Portillo Cellulitis L03.90 Assessments Encounter [...] RODNEY Brooke EDOB: [birth year] (58 yo F)Acc No.[id number]:08/02/2024 Progress Note Patient: Brooke DHALIWAL Provider: Kortney Portillo ([facility]), WINDOWS SECURITY ANALYST :1965 A ge:58 Y S ex:Female Date:08/02/2024 Address:[address] [place] [address], [place] [id number] Check In:03:46 PM ESTCheck O ut:04:31 PM [...] ROCEPHIN per 250 mg, Units: 4.00 , 46918 THERAP.INJ. OF MED. INTRAMUSCULAR OR SUBCUTANEOUS * Preventive Medicine: Screenings/Counseling: B NE ACTION PLAN Above Normal BMI Follow-up D ietary management education, guidance, and counseling See treatment section of progress note for complete details of management plan. * Follow Up: p rn * * Electronically signed by Staci Portillo , OIL AND GAS WELL TREATMENT OPERATOR, PROFESSIONAL HOUSING CONSULTANT.WINDOWS SECURITY ANALYST.[id number] on 08/06/2024 at 09:13 AM EDT Sign off status: Completed Visit Status: C HK (Check Out) true * Provider: Kortney Portillo ([facility]), WINDOWS SECURITY ANALYST Date: 08/02/2024 Generated for Magui thomas/Tashi/eTransmitting on: 0 08/13/2024 04:07 PM EDT History and Physical Notes * [...]
--- OUTSIDE RECORDS SUMMARY | 2024-08-07 07:38 | XMS_ITS ---
Author Organization The [facility] in [place] Address [address] [place] [address] Care Team Providers Care Saddle Maker Name Role Phone Teresa Portillo Primary Care Provider [phone] REASON FOR VISIT check on leg- Encounters Encounter Location Date Provider Diagnosis [facility] [address] [place] [address] 08/07/2024 Teresa Portillo Plan Of Treatment No Information Progress Notes * Brooke STEVENS EDOB: [birth year] (58 yo F)Acc No.[id number]:08/07/2024 Patient: Brooke DHALIWAL :1965 A ge:58 Y S ex:Female Address:[address] [place] [address] * true * Date: Generated for Magui thomas/Tashi/eTransmitting on: 0 08/14/2024 07:11 AM EDT
--- OUTSIDE RECORDS SUMMARY | 2024-08-07 07:38 | XMS_ITS ---
Author Organization The [facility] in [place] Address [address] [place] [address] Care Team Providers Care Microphone Boom Operator Name Role Phone Teresa Portillo Primary Care Provider REASON FOR VISIT check on leg- Encounters Encounter Location Date Provider Diagnosis [facility] [address] [place] [address] 08/07/2024 Teresa Portillo Plan Of Treatment No Information Progress Notes * Brooke STEVENS EDOB: [birth year] (58 yo F)Acc No.[id number]:08/07/2024 Patient: Brooke DHALIWAL :1965 A ge:58 Y S ex:Female Address:[address] [place] [address] * true * Date: Generated for Magui thomas/Tashi/eTransmitting on: 0 08/13/2024 04:07 PM EDT
[2024-08-13] VITALS (7 sets, daily range): BP systolic 130–186; BP diastolic 89–108; PULSE 88–113; TEMP 36.3–36.6; O2SAT 98–99; BMI 30.3
--- OUTSIDE RECORDS SUMMARY | 2024-08-13 11:15 | XMS_ITS ---
Author Organization The [facility] in [place] Address [address] [place] [address] Care Team Providers Care Herb Counselor Name Role Phone Teresa Portillo Primary Care Provider [phone] Allergies No Known Allergies REASON FOR VISIT Left Leg- Swelling, Redness, Sore Medications Medication SIG (Take, Route, Frequency, Duration) Notes Start Date End Date Status Folic Acid 1 MG 1 tablet Orally BID Active Meclizine HCl 25 MG 1 tablet as needed Orally every 12 hrs for 7 days 06/16/2023 Active Leflunomide 20 MG Oral for 28 Days Active Meloxicam 15 MG TAKE 1 TABLET BY MARIAH EVERY DAY for 30 Active Fluticasone Propionate 50 MCG/ACT 1 spray in each nostril Nasally Once a day Active Cefdinir 300 MG one capsule Orally B ID for 14 days 08/02/2024 Active Bactrim DS 800-160 MG 1 tablet Orally BI D for 10 days 07/26/2024 Active Cyclobenzaprine HCl 10 MG TAKE 1 TABLET BY MOUTH EVERY DAY AT BEDTIME NEEDED FOR 30 DAYS for 90 Active Cetirizine HCl 10 MG TAKE 1 TABLET BY MO [facility] EVERY DAY FOR 30 DAYS for 90 Active Doxycycline Monohydrate 100 MG 1 capsule Orally BID for 14 days 08/02/2024 Active Arthritis Pain Activ e Social History [...] Points 1 Interpretation Negative Vital Signs Weight 177.6 lbs 08/13/2024 Height 64 in 08/13/2024 Blood pressure systolic 124 mm Hg 08/14/19 25 Blood pressure diastolic 82 mm Hg 025 Temperature 97.3 degrees Fahrenheit 08/14/19 25 BMI 30.48 kg/m2 08/13/2024 Encounters Encounter Location Date Provider Diagnosis [facility] [address] [place] [address] 08/13/2024 Teresa Portillo Cellulitis L03.90 Assessments Encounter Date Diagnosis (ICD Code) Assessment Notes Treatment Notes Treatment Clinical Notes Section Notes 08/13/2024 Cellulitis (ICD-10 - L03.90) failed out patient tx 5 weeks, worse to ER for eval, called Plan Of Treatment Treatment Notes Assessment Notes Cellulitis failed out patient tx 5 weeks, worse to ER for eval, called Next Appt Details Follow Up: prn, Reason: Progress Notes * Brooke STEVENS EDOB: [birth year] (58 yo F)Acc No.[id number]:08/13/2024 UNLOCKED PROGRESS NOTE Progress Note Patient: Brooke DHALIWAL Provider: Kortney Portillo ([facility]), CREW SCHEDULER :1965 A ge:58 Y S ex:Female Date:08/13/2024 Address:[address] [place] [address] [id number] Check In:02:53 PM ESTCheck O ut:03:18 PM EST Subjective: * Chief Complaints: * 1 . Left Leg- Swelling, Redness, Sore. * HPI: G eneral: pain is worse, swelling is worse calf pain started 5 weeks ago cephalexin, bactrim , cefdinir, doxy US was neg. * ROS: G eneral/Constitutional: Fever d enies. [...] Patient complaining of l eft LE redness, pain, swelling all worse currently on Cefdinir and Doxy. R yenifer d enies. S kin lesion(s) d enies. * Medical History: E ustachian tube dysfunction, [...] Tablet 1 tablet Orally BID , Taking Cefdinir 300 MG Capsule one capsule Orally BID , Taking Cetirizine HCl 10 MG Tablet TAKE 1 TABLET BY MOUTH EVERY DAY FOR 30 DAYS , Taking Cyclobenzaprine HCl 10 MG Tablet TAKE 1 TABLET BY MOUTH EVERY DAY AT BEDTIME NEEDED FOR 30 DAYS , Taking Doxycycline Monohydrate 100 MG Capsule 1 capsule Orally BID , Taking Fluticasone Propionate 50 MCG/ACT Suspension [...] Allergies: N .K.D.A. Objective: * Vitals: W t:177.6lbs, Ht: 64 in, BP:124/82mm Hg, Temp:97.3F, BMI:30.48Index, Ht-cm: 162.56 cm, Wt-k.56 kg. * Examination: G eneral Examinations: GENERAL APPEARANCE: a lert and oriented, i n no acute distress. EYES: c onjunctiva normal, sclera non-icteric. NOSE: n ormal external appearance. LUNGS: c lear to auscultation bilaterally. CARDIO: r egular rate and rhythm, S1, S2 normal. MUSCULOSKELETAL: d ecreased ROM left leg due to pain. SKIN: r edness to left LE, swelling , warmth, tenderness to palpation. Assessment: * Assessment: 1. C ashley - L03.90 (Primary) Plan: * Treatment: * Follow Up: p rn * * Electronic signature of Zuleyka John , CHARGING OPERATOR, OPERATIONS OFFICER TRUST DEPARTMENT.CREW SCHEDULER.[id number] on 08/14/2024 at 07:10 AM EDT Sign off status: Pending Visit Status: Moshe HK (Check Out) * Provider: Kortney Portillo ([facility]), CREW SCHEDULER Date: 08/13/2024 Generated for Printi ng/Faxing/eTransmitting on: 08/14/2024 07:10 AM EDT History and Physical Notes * HPI (History of Present Illness) Category Sub-Category Detail Notes Category Not es General pain is worse, swelling is worse calf pain started 5 weeks ago cephalexin, bactrim , cefdinir, doxy US was neg Examination Category Sub-Category Detail Notes Category Not es General Examinations GENERAL APPEARANCE: alert a nd oriented, in no acute distress EYES: conjunctiva normal, sclera non-icteric EARS: NOSE: normal external appe arance THROAT: CARDIO: regular rate and rhy thm, S1, S2 normal LUNGS: clear to auscultatio n bilaterally ABDOMEN: SKIN: redness to left LE, swelling , warmth, tenderness to palpation BACK: MUSCULOSKELETAL: decreased ROM left l eg due to pain LYMPH NODES:
--- OUTSIDE RECORDS SUMMARY | 2024-08-13 11:15 | XMS_ITS ---
Author Organization [facility] in [place] Address [address] [place] [address] Care Team Providers Care Casino Beverage Server Name Role Phone Teresa Portillo Primary Care [...] 10 MG TAKE 1 TABLET BY [facility] EVERY DAY FOR 30 DAYS for [...] 08/13/2024 Encounters Encounter Location Date Provider Diagnosis [facility] [address] [place] [address] 08/13/2024 Teresa Portillo Cellulitis L03.90 Assessments Encounter [...] Brooke STEVENS EDOB: 6 (58 yo F)Acc No.[id number]:08/13/2024 UNLOCKED PROGRESS NOTE Progress Note Patient: Brooke DHALIWAL Provider: Kortney Portillo ([facility]), HOSPICE CLINICAL SUPERVISOR :1965 A ge:58 Y S ex:Female Date:08/13/2024 Address:[address] [place] [address] [facility] Check In:02:53 PM ESTCheck O ut:03:18 PM [...] * Electronic signature of Zuleyka John , QUALITY REVIEW SPECIALIST, HUMAN RESOURCES SUPPORT SPECIALIST.HOSPICE CLINICAL [id number] on 08/13/2024 at 04:06 PM EDT Sign off status: Pending Visit Status: Moshe HK (Check Out) * Provider: Kortney Portillo ([facility]), HOSPICE CLINICAL SUPERVISOR Date: 08/13/2024 Generated for Printi ng/Faxing/eTransmitting on: 08/13/2024 04:06 PM EDT History and Physical Notes * [...]
--- NOTE | 2024-08-13 16:05 | ED.EXTPRO1 ---
HPI - Extremity Problem General Chief complaint: Extremity Problem, Nontraumatic Stated complaint: LOWER EXTREMITY PAIN Time Seen by Provider: 08/13/24 15:53 Source: patient Mode of arrival: walk-in Limitations: no limitations History of Present Illness HPI Narrative: Patient is a 58-year-old female who presents to the emergency department for failure of outpatient treatment of cellulitis of the left leg for the last 5 weeks. She was referred to the ER by her nurse practitioner for admission. She states she has had redness, warmth and swelling to the lower leg. No objective fevers, no vomiting or diarrhea. She is not diabetic. She initially completed a course of Keflex and then subsequently finished a course of Bactrim and is currently taking a course of cefdinir and doxycycline that was started on 08/06/2024. There has been no drainage from the leg. No injury. Related Data Home Medications ?Medication ?Instructions ?Recorded ?Confirmed cefdinir 300 mg capsule mg 08/13/24 cetirizine 10 mg tablet mg 08/13/24 doxycycline monohydrate 100 mg mg 08/13/24 capsule leflunomide 20 mg tablet mg 08/13/24 meloxicam 15 mg tablet mg 08/13/24 Allergies Allergy/AdvReac Type Severity Reaction Status Date / Time No Known Drug Allergies Allergy Verified 08/13/24 16:01 Review of Systems ROS Constitutional Denies: fever or chills Ears, nose, mouth, and throat Denies: throat pain or nasal congestion Cardiovascular Denies: chest pain Respiratory Denies: shortness of breath or cough Gastrointestinal Denies: nausea or vomiting Genitourinary Denies: painful urination Musculoskeletal Reports: extremity pain and extremity swelling; Denies: back pain or neck pain Integumentary/Breast Reports: redness, skin pain and skin tenderness Neurological Denies: numbness in extremities or weakness in extremities Hematologic/Lymphatic Denies: easy bruising or easy bleeding PFSH PFSH Social History Little interest or pleasure in doing things: not at all Feeling down, depressed, or hopeless: not at all Exam Narrative Exam Narrative: Gen.: Awake, alert, in no distress Head: Normocephalic, atraumatic ENT: Moist mucous membranes Respiratory: No respiratory distress Extremities: Left calf with erythema, warmth and swelling noted to the left mid tibia distally. 2+ left DP pulse. No open wounds or drainage. Soft tissue swelling noted of the left ankle Psych: Normal mood and affect Neuro: No focal neuro deficit Skin: Warm, dry, intact Constitutional Vital Signs, click to edit/add: Last Vital Signs Temp 97.9 F 08/13/24 15:58 Pulse 101 H 08/13/24 16:10 Resp 18 08/13/24 15:58 BP 130/101 H 08/13/24 15:58 Pulse Ox 98 08/13/24 15:58 O2 Del Method Room Air 08/13/24 15:58 Course Vital Signs Vital signs: Vital Signs Temperature 97.9 F 08/13/24 15:58 Pulse Rate 100 H 08/13/24 15:58 Respiratory Rate 18 08/13/24 15:58 Blood Pressure 130/101 H 08/13/24 15:58 Pulse Oximetry 98 08/13/24 15:58 Oxygen Delivery Method Room Air 08/13/24 15:58 Temperature 97.9 F 08/13/24 15:58 Pulse Rate 101 H 08/13/24 16:10 Respiratory Rate 18 08/13/24 15:58 Blood Pressure 130/101 H 08/13/24 15:58 Pulse Oximetry 98 08/13/24 15:58 Oxygen Delivery Method Room Air 08/13/24 15:58 MDM - Extremity (Nontraumatic) MDM Narrative Medical decision making narrative: Ultrasound is negative, labs are stable with mildly elevated CRP. Patient treated with Zosyn and vancomycin and admitted for failure of outpatient treatment of cellulitis. She requested pain medication on reevaluation by attending physician and was given Percocet for comfort. SHARED APC VISIT, PHYSICIAN ATTESTATION: [id number] I performed a substantive part of the MDM during the patient?s E/M visit. I personally evaluated and examined the patient. I personally made or approved the documented management plan and acknowledge its risk of complications. Medical Records Attestation: I reviewed the patient's medical records. Lab Data Attestation: I reviewed the patient's lab results. Labs: Lab Results 08/13/24 Range/Units 16:06 WBC 7.5 (4.0-11.0) 10^3/uL RBC 4.33 (4.20-5.40) 10^6/uL Hgb 12.9 (12.0-16.0) g/dL Hct 40.0 (36.0-48.0) % MCV 92.4 (81.0-99.0) fL MCH 29.8 (26.7-34.0) pg MCHC 32.3 (29.9-35.2) g/dL RDW 14.5 (11.0-15.0) % Plt Count 300 (150-450) 10^3/uL MPV 9.6 (9.5-13.5) fL Neut % (Auto) 56.8 (43.0-75.0) % Lymph % (Auto) 30.4 (20.5-60.0) % [place] % (Auto) 7.7 (1.7-12.0) % Eos % (Auto) 3.7 (0.9-7.0) % Baso % (Auto) 1.1 (0.2-2.0) % Neut # (Auto) 4.3 (1.4-6.5) 10^3/uL Lymph # (Auto) 2.3 (1.2-3.8) 10^3/uL [place] # (Auto) 0.6 (0.3-0.8) 10^3/uL Eos # (Auto) 0.3 (0.0-0.7) 10^3/uL Baso # (Auto) 0.1 (0.0-0.1) 10^3/uL Abs Immat Gran (auto) 0.02 (0.00-0.03) 10^3/uL Imm/Tot Granulo (auto) 0.3 (0.0-0.5) % Sodium 143 (136-145) mmol/L Potassium 3.9 (3.5-5.1) mmol/L Chloride 107 (98-107) mmol/L Carbon Dioxide 22.3 (21.0-32.0) mmol/L Anion Gap 17.6 BUN 21.0 H (7.0-18.0) mg/dL Creatinine 0.80 (0.55-1.02) mg/dL Est GFR ( Amer) >60 (>=60 mL/min/1.73m^2) Est GFR (Non-Af Amer) >60 (>=60 mL/min/1.73m^2) BUN/Creatinine Ratio 26.3 Glucose 90 (74-106) mg/dL Lactate 0.6 (0.4-2.0) mmol/L Calcium 9.4 (8.5-10.1) mg/dL Magnesium 2.0 (1.8-2.4) mg/dL Total Bilirubin 0.7 (0.2-1.0) mg/dL AST 30 (15-37) U/L ALT 28 (14-59) U/L Alkaline Phosphatase 122 H (46-116) U/L C-Reactive Protein 0.65 H (<=0.50) mg/dL Total Protein 7.3 (6.4-8.2) g/dL Albumin 3.3 L (3.4-5.0) g/dL Globulin 4.0 g/dL Albumin/Globulin Ratio 0.8 Imaging Data Venous US: Attestation: I have reviewed the pertinent imaging results. Discharge Plan Discharge Chief Complaint: Extremity Problem, Nontraumatic Clinical Impression: Cellulitis of left leg, Left leg pain, Failure of outpatient treatment Patient Disposition: Admitted as Observation Time of Disposition Decision: 17:29 Condition: Good
--- OUTSIDE RECORDS SUMMARY | 2024-08-13 16:07 | XMS_ITS | Encounter Summary ---
Author Organization [facility] Address [address] [place] [address] Care Team Providers Care Slide Developer Name Role Phone Teresa Portillo MD Unavailable [phone] Paul Villatoro MD Primary Care Provider [phone] Encounter Details Date Type Department Care Team (Late st Contact Info) Description 10/19/2023 Clinisync Result Encounter [facility] External Department Unsolicited Luiz Alcaraz MD [address] [place] [id number] Social History Tobacco Use Types Packs/Day Years [...] EDT Narrative 10/19/2023 12:13 PM EDT The [address] [address] Magnetic Resonance Report Signed Patient: CIELO STEVENS MR#: [id number] : 1965 Acct:[id number] Age/Sex: 57 / F ADM Date: 10/18/23 Loc: MRI Attending Dr: Luiz Alcaraz M.D. Ordering Physician: Luiz Alcaraz M.D. Date of Service: 10/18/23 Procedure(s): MR foot RT wo con Accession Number(s): [id number] cc: TERESA PORTILLO ; Luiz Alcaraz M.D. [place] [id number] Patient Name: CIELO STEVENS MRN: [id number] date: 1965 Sex: F Assigned Patient Location: MRI Current Patient Location: Accession/Order Number: [id number] Exam Date: 10/18/2023 15:45 Report Date: 10/19/2023 [...] Signed By: 10/19/23 1213 DD/ 1211 TD/TT: Manager Car: Procedure Note Radiology, Radiologist, - 10/19/2023 The [place] [id number] Magnetic Resonance Report Signed Patient: CIELO STEVENS EMR#: [id number] : 1965Acct:[id number] Age/Sex: 57 / FADM Date: 10/18/23 Loc: MRI Attending Dr: Luiz Alcaraz M.D. Ordering Physician: Luiz Alcaraz M.D. Date of Service: 10/18/23 Procedure(s): MR foot RT wo con Accession Number(s): [id number] cc: TERESA PORTILLO ; Luiz Alcaraz M.D. The [place] [id number] Patient Name: CIELO STEVENS MRN: [id number] date: 1965 Sex: F Assigned Patient Location: MRI Current Patient Location: Accession/Order Number: [id number] Exam Date: 10/18/2023 15:45 Report Date: 10/19/2023 [...] M.D. Signed By:10/19/23 1213 DD/ 1211 TD/TT: Manager Car: Luiz Alcaraz MD [facility] Final Result documented in this encounter Visit Diagnoses Not on filedocumented in this encounter Care Teams Slide Developer Relationship Specialty Start Date End Date Paul Villatoro MD [address] [place] [phone] PCP - General Family Medicine 09/13/23 Teresa Portillo MD [address] [place] [phone] Referring Physician Family Medicine 07/05/23 documented as of this encounter
--- OUTSIDE RECORDS SUMMARY | 2024-08-13 16:08 | XMS_ITS | Encounter Summary ---
Author Organization [facility] Address [address] [place] [address] Care Team Providers Care Senior Controls Technician Name Role Phone Teresa Portillo MD Unavailable [phone] Paul Villatoro MD Primary Care Provider [phone] Encounter Details Date Type Department Care Team (Late st Contact Info) Description 04/11/2024 Abstract [facility] [address] [place] [address] Salvatore Bryson, DPM FACFAS [address] [place] [address] Social History Tobacco Use Types Packs/Day Years [...] on filedocumented in this encounter Care Teams Senior Controls Technician Relationship Specialty Start Date End Date Paul Villatoro MD [address] [place] [address] PCP - General Family Medicine 09/13/23 Teresa Portillo MD [address] [place] [address] Referring Physician Family Medicine 07/05/23 documented as of this encounter
--- OUTSIDE RECORDS SUMMARY | 2024-08-13 16:08 | XMS_ITS | Patient Health Record ---
Author Organization [facility] in [place] Address [address] [place] [address] Care Team Providers Care Shovel Loader Operator Name Role Phone Teresa De Primary Care Provider MonchoweiWilbert [phone] Allergies No Known Allergies Results Component Value Reference Range Notes CREATININE Reviewed date:09/26/2023 04:05:27 PM Interpretation: Performing Lab: Notes/Report: [facility] , Creatinine 1.01 0.55-1.02 mg/dL Estimated GFR ( Sarah >60 >=60 Estimated GFR (Non- Kriss 56 >=60 Performing Lab: see note ML - [facility] LB LIVER PROFILE Reviewed date:09/26/2023 04:05:27 PM Interpretation: Performing Lab: Notes/Report: [facility] , Bilirubin Total 0.7 0.2-1.0 mg/dL Bilirubin Direct 0.1 0.0-0.2 mg/dL Aspartate Amino Transferase 26 15-37 U/L Alanine Aminotransferase 37 14-59 U/L Alkaline Phosphatase 88 46-116 U/L Total Protein 7.1 6.4-8.2 g/dL Albumin Level 3.4 3.4-5.0 g/dL Globulin 3.7 Albumin Globulin Ratio 0.9 Performing Lab: see note ML - [facility] LB MR foot RT wo con Reviewed date:10/21/2023 08:38:49 AM Interpretation: Performing Lab: Notes/Report: Source Facility: [facility] [place] [address] [place] [address] Magnetic Resonance Report Signed Patient: CIELO RAY MR#: [id number] : 1965 Acct:[id number] Age/Sex: 57 / F ADM Date: 10/18/23 Loc: MRI Attending Dr: Luiz Alcaraz M.D. Ordering Physician: Luiz Alcaraz M.D. Date of Service: 10/18/23 Procedure(s): MR foot RT wo con Accession Number(s): [id number] cc: TERESA DE ; Luiz Alcaraz M.D. [place] [address] Patient Name: CIELO RAY MRN: [id number] date: 1965 Sex: F Assigned Patient Location: MRI Current Patient Location: Accession/Order Number: [id number] Exam Date: 10/18/2023 15:45 Report Date: 10/19/2023 [...] Signed By: 10/19/23 1213 DD/ 1211 TD/TT: Cab Driver: The [address] [address] Magnetic Resonance Report Signed Patient: JASON RAY MR#: [id number] : 1965 Acct:[id number] Age/Sex: 57 / F ADM Date: 10/18/23 Loc: MRI Attending Dr: Luiz Alcaraz M.D. Ordering Physician: Luiz Alcaraz M.D. Date of Service: 10/18/23 Procedure(s): MR maddison t RT wo con Accession Number(s): [id number] cc: TERESA DE ; Luiz Alcaraz M.D. [place] [id number] Patient Name: CIELO RAY MRN: [id number] date: 1965 Sex: F Assigned Patient Location: MRI Current Patient Location: Accession/Order Numb er: [id number] Exam Date: 10/18/2023 15:45 Report Date: 10/19/2023 [...] Signed By: 10/19/23 1213 DD/ 121 TD/TT: Cab Driver: CREATININE Reviewed date:02/13/2024 08:20:04 AM Interpretation: Performing Lab: Notes/Report: [facility] , Creatinine 0.87 0.55-1.02 mg/dL Estimated GFR ( Sarah >60 >=60 mL/min/1.73m 2 Estimated GFR (Non- Kriss >60 >=60 mL/min/1.73m 2 Performing Lab: see note ML - [facility] LB LIVER PROFILE Reviewed date:02/13/2024 08:20:04 AM Interpretation: Performing Lab: Notes/Report: [facility] , Bilirubin Total 0.6 0.2-1.0 mg/dL Bilirubin Direct 0.1 0.0-0.2 mg/dL Aspartate Amino Transferase 17 15-37 U/L Alanine Aminotransferase 29 14-59 U/L Alkaline Phosphatase 94 46-116 U/L Total Protein 7.2 6.4-8.2 g/dL Albumin Level 3.3 3.4-5.0 g/dL Globulin 3.9 Albumin Globulin Ratio 0.8 Performing Lab: see note ML - [facility] LB ECG 12 lead Reviewed date:03/01/2024 08:58:55 AM Interpretation: Performing Lab: Notes/Report: Source Facility: [facility] [place] [address] [place] [address] Electrocardiograph Report Signed Patient: CIELO RAY MR#: [id number] : 1965 Acct:[id number] Age/Sex: 58 / F ADM Date: 02/29/24 Loc: CARD Attending Dr: LUIZ BOOTHE M.D. Ordering Physician: LUIZ BOOTHE M.D. 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 Signed By: 02/29/24204602/29/242046 DD/ 06 TD/TT: Cab Driver: [place] [address] Electrocardiograph Report Signed Patient: JASON RAY MR#: [id number] : 1965 Acct:[id number] Age/Sex: 58 / F ADM Date: 02/29/24 Loc: CARD Attending Dr: LUIZ NATARAJAN M.D. Ordering Physician: LUIZ BOOTHE M.D. Date of Service: 02/29/24 Procedure(s): ECG 12 lead Accession Number(s): [id number] cc: [facility] Test Date: 2024-02-29 Pat Name: CIELO VIZCARRA Department: 50 Room: - Gender: Female Data Entry Analyst: : 1965 Requ ested By: 0719 Order Number: [id number] Reading MD: JOEY DE Measurements Intervals [place] Rate: 86 P: 68 OR: 162 QRS: 57 QRSD: 90 T: 51 QT: 351 QTc: 421 Interpretive Statements SINUS RHYTHM No previous ECG avai lable for comparison Electronically Keri d On 02-29-2024 20:47:12 EST by JOEY DE Dictated By: Joey De D.O. Signed By: 02/29/24204602/29/242046 DD/ 150 TD/TT: Cab Driver: CBC AUTO DIFF Reviewed date:03/13/2024 10:57:51 AM Interpretation: Performing Lab: Notes/Report: [facility] , White Blood Count 6.6 4.0-11.0 10 [...] fL Performing Lab: see note ML - [facility] LB FREE T3 Reviewed date:03/13/2024 10:57:51 AM Interpretation: Performing Lab: Notes/Report: [facility] , Free T3 2.70 2.18-3.98 pg/mL Performing Lab: see note ML - [facility] LB GLYCOHEMOGLOBIN A1C Reviewed date:03/13/2024 10:57:51 AM Interpretation: Performing Lab: Notes/Report: [facility] , Glycohemoglobin A1C 5.3 4.5-6.2 % ADA RECOMMENDED LIMIT 4.0 - 6.0 ADA THERAPEUTIC TARGET < 7.0 ACTION SUGGESTED > 7.0 Estimated Average Glucose 105 Performing Lab: see note ML - [facility] LB LIPID PROFILE Reviewed date:03/13/2024 10:57:51 AM Interpretation: Performing Lab: Notes/Report: [facility] , Triglycerides 52 <=150 mg/dL Cholesterol 238 <=200 mg/dL HDL Cholesterol 98 40-60 mg/dL > or =60 mg/dl - LOW CARDIOVASCULAR RISK <40 mg/dl - HIGH CARDIOVASCULAR RISK LDL Cholesterol Calculated 130.0 <100 mg/dl OPTIMAL 100-129 mg/dl NEAR OR ABOVE OPTIMAL 130-159 mg/dl BORDERLINE HIGH 160-189 mg/dl HIGH >190 mg/dl VERY HIGH VLDL CHOLESTEROL 10.4 Chol HDL Ratio 2.4 3.3 - 4.4 LOW RISK 4.4 - 7.1 AVERAGE RISK 7.1 - 11.0 MODERATE RISK >11.0 HIGH RISK Performing Lab: see note - [facility] LB PROF 14(COMP METB) Reviewed date:03/13/2024 10:57:51 AM Interpretation: Performing Lab: Notes/Report: [facility] , Sodium 139 136-145 mmol/L [...] 0.8 Performing Lab: see note ML - [facility] LB T4 Reviewed date:03/13/2024 10:57:51 AM Interpretation: Performing Lab: Notes/Report: [facility] , T4 Thyroxine 7.40 4.80-13.90 ug/dL Performing Lab: see note ML - [facility] LB TSH Reviewed date:03/13/2024 10:57:51 AM Interpretation: Performing Lab: Notes/Report: [facility] , Thyroid Stimulating Hormone 0.587 0.358-3.740 uIU/mL Performing Lab: see note - [facility] LB Erythrocyte Sedimentation Ra te Reviewed date:03/13/2024 10:57:51 AM Interpretation: Performing Lab: Notes/Report: [facility] , Erythrocyte Sedimentation Rate 59 <=30 mm/hr Performing Lab: see note ML - [facility] LB Manual Differential Reviewed date:03/13/2024 10:57:51 AM Interpretation: Performing Lab: Notes/Report: [facility] , Segmented Neutrophils % Manual 90.0 43.0-75.0 [...] 1 0 3/uL Performing Lab: see note ML - [facility] LB CBC AUTO DIFF Reviewed date:04/02/2024 11:09:48 AM Interpretation: Performing Lab: Notes/Report: [facility] , White Blood Count 7.4 4.0-11.0 10 [...] 3/uL Performing Lab: see note ML - [facility] LB LIVER PROFILE Reviewed date:05/09/2024 11:52:31 AM Interpretation: Performing Lab: Notes/Report: [facility] , Bilirubin Total 0.6 0.2-1.0 mg/dL Bilirubin Direct 0.1 0.0-0.2 mg/dL Aspartate Amino Transferase 45 15-37 U/L Alanine Aminotransferase 51 14-59 U/L Alkaline Phosphatase 93 46-116 U/L Total Protein 7.1 6.4-8.2 g/dL Albumin Level 3.6 3.4-5.0 g/dL Globulin 3.5 Albumin Globulin Ratio 1.0 Performing Lab: see note ML - [facility] LB CREATININE Reviewed date:05/09/2024 11:52:31 AM Interpretation: Performing Lab: Notes/Report: [facility] , Creatinine 0.92 0.55-1.02 mg/dL Estimated GFR ( Sarah >60 >=60 mL/min/1.73m 2 Estimated GFR (Non- Kriss >60 >=60 mL/min/1.73m 2 Performing Lab: see note ML - [facility] LB CBC AUTO DIFF Reviewed date:05/09/2024 11:52:31 AM Interpretation: Performing Lab: Notes/Report: [facility] , White Blood Count 6.0 4.0-11.0 10 [...] 3/uL Performing Lab: see note ML - [facility] Erythrocyte Sedimentation Ra te Reviewed date:04/02/2024 11:09:48 AM Interpretation: Performing Lab: Notes/Report: [facility] , Erythrocyte Sedimentation Rate 41 <=30 mm/hr Performing Lab: see note ML - [facility] LIVER PROFILE Reviewed date:04/02/2024 11:09:48 AM Interpretation: Performing Lab: Notes/Report: [facility] , Bilirubin Total 0.7 0.2-1.0 mg/dL Bilirubin Direct 0.1 0.0-0.2 mg/dL Aspartate Amino Transferase 32 15-37 U/L Alanine Aminotransferase 51 14-59 U/L Alkaline Phosphatase 112 46-116 U/L Total Protein 7.5 6.4-8.2 g/dL Albumin Level 3.3 3.4-5.0 g/dL Globulin 4.2 Albumin Globulin Ratio 0.8 Performing Lab: see note ML - [facility] LB CREATININE Reviewed date:04/02/2024 11:09:48 AM Interpretation: Performing Lab: Notes/Report: [facility] , Creatinine 0.97 0.55-1.02 mg/dL Estimated GFR ( Sarah >60 >=60 mL/min/1.73m 2 Estimated GFR (Non- Kriss 59 >=60 mL/min/1.73m 2 Performing Lab: see note ML - [facility] LB VITAMIN D 25 [place] Reviewed date:03/13/2024 10:57:51 AM Interpretation: Performing Lab: Notes/Report: [facility] , Vitamin D 34.2 <20 ng/mL Vit D deficient 20-<30 ng/mL Vit D insufficient 30-100 ng/mL Vit D sufficient >100 ng/mL Potential Toxicity Performing Lab: see note - [facility] LB IRON Reviewed date:03/13/2024 10:57:51 AM Interpretation: Performing Lab: Notes/Report: [facility] , Iron 63.0 50.0-170.0 ug/dL Performing Lab: see note - [facility] LB INSULIN Reviewed date:03/13/2024 10:57:51 AM Interpretation: Performing Lab: Notes/Report: [facility] , Insulin 27.4 2.6-24.9 uIU/mL Performed at: [facility] [address] [id number] Resident Assistant Cna: Charlie Arevalo PhD, Phone: [phone] Performing Lab: see note - [facility] LB Erythrocyte Sedimentation Ra te Reviewed date:02/13/2024 08:20:04 AM Interpretation: Performing Lab: Notes/Report: [facility] , Erythrocyte Sedimentation Rate 44 <=30 mm/hr Performing Lab: see note - [facility] LB CBC AUTO DIFF Reviewed date:02/13/2024 08:20:04 AM Interpretation: Performing Lab: Notes/Report: [facility] , White Blood Count 7.4 4.0-11.0 10 [...] 0.00-0.03 10 3/uL Performing Lab: see note - [facility] LB Erythrocyte Sedimentation Ra te Reviewed date:09/26/2023 04:05:27 PM Interpretation: Performing Lab: Notes/Report: [facility] , Erythrocyte Sedimentation Rate 62 <=30 mm/hr Performing Lab: see note - [facility] LB CBC AUTO DIFF Reviewed date:09/26/2023 04:05:27 PM Interpretation: Performing Lab: Notes/Report: [facility] , White Blood Count 7.4 4.0-11.0 10 [...] Performing Lab: see note ML - [facility] MM tomosynthesis screening B I Reviewed date:07/25/2024 10:00:17 AM Interpretation: Performing Lab: Notes/Report: Source Facility: [place] [address] Mammography Report Signed Patient: CIELO RAY MR#: [id number] : 1965 Acct:[id number] Age/Sex: 58 / F ADM Date: 07/24/24 Loc: MAMMO Attending Dr: TERESA DE Ordering Physician: TERESA DE Results: Date of Service: 07/24/24 Follow Up: Procedure(s): MM tomosynthesis screening BI Accession Number(s): [id number] cc: TERESA DE Patient Name: CIELO RAY MR#: [id number] : 1965 Exam Date: 07/24/2024 Ordering Doctor: TERESA DE [facility] RE[facility] PROCEDURE: MM TOMOSYNTHESIS SCREENING BI COMPARISON: MM TOMOSYNTHESIS SCREENING BI, 07/21/2023. MM TOMOSYNTHESIS SCREENING BI, 07/20/2022. MG MAMM SCREEN 3D MICHELLE CAD, 07/16/2021. MG MAMM SCREEN MICHELLE W CAD, 04/12/2017. INDICATIONS: Screening Calculator Name NCI Breast Cancer Risk Assessment Tool 5 Year Breast Cancer Risk 2.60% Lifetime Breast Cancer Risk 14.20% Personal Breast Cancer No Personal Ovarian Cancer No Treatments None Family Cancers Mother with breast cancer at age 45. LOCATION: [facility] BREAST COMPOSITION: There are scattered areas of fibroglandular density. FINDINGS: DIAGNOSTIC CATEGORY 1--NEGATIVE. RIGHT BREAST: No significant suspicious finding. LEFT BREAST: No significant suspicious finding. RECOMMENDATIONS: ROUTINE MAMMOGRAM AND CLINICAL EVALUATION IN 12 MONTHS. PLEASE NOTE: A NORMAL MAMMOGRAM DOES NOT EXCLUDE THE POSSIBILITY OF BREAST CANCER. A CLINICALLY SUSPICIOUS PALPABLE LUMP SHOULD BE BIOPSIED. Dictated by: Cr Vitale DO on 07/24/2024 at 15:55 Approved by: Cr Vitale DO on 07/24/2024 at 16:05 Dictated By: Cr Vitale M.D. Signed By: 07/24/241605 DD/ 04 TD/TT: Cab Driver: [place] [address] Mammography Report Signed Patient: JASON RAY MR#: [id number] : 1965 Acct:[id number] Age/Sex: 58 / F ADM Date: 07/24/24 Loc: MAMMO Attending Dr: TERESA DE Ordering Physician: TERESA DE Results: Date of Service: 12/08 Follow Up: Procedure(s): MM tomosynthesis screening BI Accession Number(s): [id number] cc: TERESA DE Patient Name: CIELO RAY MR#: [id number] : 1965 Exam Date: 07/24/2024 Ordering Doctor: PHILIPP DE [facility] REPORT PROCEDURE: MM TOMOSYNTHESIS SCREENING BI COMPARISON: MM TOMOSYNTHESIS SCREENING BI, 07/21/2023. MM TOMOSYNTHESIS SCREENING BI, 023. MG MAMM SCREEN 3D MICHELLE CAD, 07/16/2021. MG MAMM SCREEN MICHELLE W CAD, 04/12/2017. INDICATIONS: Screening Calculator Name NCI Breast Cancer Risk Assessment Tool 5 Year Breast Cancer Risk 2.60% Lifetime Breast Canc er Risk 14.20% Personal Breast Cancer No Personal Ovarian Can cer No Treatments None Family Cancers Willae gillian with breast cancer at age 45. LOCATION: [facility] BREAST COMPOSITION: There are scattered areas of fibroglandular density. FINDINGS: DIAGNOSTIC CATEGORY 1--NEGATIVE. RIGHT BREAST: No significant suspicious finding. LEFT BREAST: No significant suspicious finding. RECOMMENDATIONS: ROUTINE MAMMOGRAM AN D CLINICAL EVALUATION IN 12 MONTHS. PLEASE NOTE: A KAT L MAMMOGRAM DOES NOT EXCLUDE THE POSSIBILITY OF BREAST CANCER. A CLINICALLY SUSPICIOUS PALPABLE LUMP SHOULD BE BIOPSIED. Dictated by: Cr Vitale DO on 07/24/2024 at 15:55 Approved by: Cr Vitale DO on 07/24/2024 at 16:05 Dictated By: Cr Vitale M.D. Signed By: 07/24/24 1606 DD/ 04 TD/TT: Cab Driver: Erythrocyte Sedimentation Ra te Reviewed date:05/09/2024 11:52:23 AM Interpretation: Performing Lab: Notes/Report: [facility] , Erythrocyte Sedimentation Rate 33 <=30 mm/hr Performing Lab: see note ML - [facility] LB Reason For Referral No Information Medications Medication SIG (Take, Route, Frequency, Duration) Notes Start Date End Date Status Folic Acid 1 MG 1 tablet Orally BID Active Meclizine HCl 25 MG 1 tablet as needed Orally every 12 hrs for 7 days 06/16/2023 Active Leflunomide 20 MG Oral for 28 Days Active Arthritis Pain Activ e Meloxicam 15 MG TAKE 1 TABLET BY MARIAH TH EVERY DAY for 30 Active Cefdinir 300 MG one capsule Orally [...] each nostril Nasally Once a day Active Doxycycline Monohydrate 100 MG 1 capsule Orally BID for 14 days 08/02/2024 Active Social History Tobacco Use: Social History [...] Problem Status W/U Status Risk Notes Problem 16693050 Generalized anxiety disorder (F41.1) Active confirmed Problem 08830040 Venous insufficiency (chronic) (peripheral) (I87.2) Active confirmed Problem 870163832 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) Active confirmed Problem 525753560 Spondylosis without myelopathy or radiculopathy, cervical region (M47.812) Active confirmed Problem Exposure to communicable disease (678831759) Contact with and (suspected) exposure to other viral communicable diseases (Z20.828) Active confirmed Problem Anxiety (40470339) Anxiety (F41.9) Active confi rmed Problem Dizziness (685871724) Dizziness (R42) Active confirmed Problem 646077590 Diverticulosis (K57.90) Active confirmed Problem Arthralgia of the pelvic region and thigh (478103895) Hip pain, left (M25.552) Active confirmed Problem 908242280 Borderline hypertension (R03.0) Active confirmed Problem Serous otitis media (70004060) Serous otitis media (H65.90) Active confirmed Problem Costochondritis (51343776) Costochondritis (M94.0) Active confirmed Problem Diverticulitis (53814627) Diverticulitis (K57.92) Active confirmed Problem Angular cheilitis (339661504) Angular cheilitis (K13.0) Active confirmed Problem Ear pain, right (H92.01) Active confirmed Problem 31906380 DDD (degenerativ e disc disease), cervical (M50.30) Active confirmed Problem Dysfunction of left eustachian tube (8544683746921761) Eustachian tube dysfunction, left (H69.82) Active confirmed Problem Muscle spasm (21120484) Muscle spasm (M62.838) Active confirmed Problem Overweight (747135761) Over weight (E66.3) Active confirmed Problem Dysfunction of right eustachian tube (disorder) (6156660547533471) Eustachian tube dysfunction, right (H69.81) Active confirmed Problem Annual wellness visit (524773028393709) Wellness examination (Z00.00) Active confirmed Problem Chronic rheumatic arthritis (8466367316) Chronic rheumatic arthritis (M06.9) Active confirmed Problem Medial epicondylitis of elbow joint (36704465) Golfers elbow, left (M77.02) Active confirmed Problem 69186224 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) Active confirmed Vital Signs Heart Rate 89 /min 02/27/2024 Temperature 97.3 degrees Fahrenheit 08/13/2024 Oximetry 96 % 02/27/2024 Blood pressure diastolic 82 mm Hg 08/13/2024 Height 64 in 08/13/2024 Blood pressure systolic 124 mm Hg 08/13/2024 Weight 177.6 lbs 08/13/2024 BMI 30.48 kg/m2 08/13/2024 Encounters Encounter Location Date Provider Diagnosis [place] [address] [place] [address] 02/24/2024 Teresa De [address] [address] 03/13/2024 Teresa De [facility] [address] [place] [address] 07/10/2024 Teresa De [facility] [address] [place] [address] 07/25/2024 Teresa De [place] [address] [place] [address] 08/07/2024 Teresa De [facility] [address] [place] [address] 08/13/2024 Teresa De Cellulitis L03.[address] [address] 02/27/2024 Teresa De Pre-op evaluation Z01.818 and Wellness examination Z00.00 [place] [address] [place] [address] 05/17/2024 Wilbert Hoy Strep throat J02.[address] [address] 07/06/2024 Teresa De Left leg pain M79.60 5 and Cough R05.9 [facility] [address] [place] [address] 07/26/2024 Teresa De Cellulitis L03.90 [facility] [address] [place] [address] 08/02/2024 Teresa De Cellulitis L03.90 Assessments Encounter Date Diagnosis (ICD [...] until they are finished. You can use [id number] acetaminophen or ibuprofen if needed for pain. You can also use throat lozenges or gargle warm water to help with the sore throat. You are contagious until you have been on antibiotics for 24 hours. You should be extra vigilant about hand washing or using hand health occupations instructor gel. You should follow up with your Primary Care Physician or return to clinic if not improving in the next 3-5 days. 07/06/2024 Left leg pain (ICD-10 - M79.605) probable cellulitis close monitoring if not improving 24-48 hours, getting worse on abx, needs to be seen US tonight 6 pm 07/06/2024 Cough (ICD-10 - R05.9) likely viral at this point otc meds 07/26/2024 Cellulitis (ICD-10 - L03.90) close monitoring fu if not improving, worsens 24-48 hrs try a diff abx 08/02/2024 Cellulitis (ICD-10 - L03.90) 1gm Rocephin close monitoring if worse over weekend to ER let office know Tuesday how doing 08/13/2024 Cellulitis (ICD-10 - L03.90) failed out patient tx 5 weeks, worse to ER for eval, called Plan Of Treatment Pending Test Test Name Order Date HEMOGLOBIN A1C (GLYCO) 02/27/2024 IRON, TOTAL 02/27/2024 LIPID PANEL (CHOL/TRIG/HDL/LDL) 02/26/19 25 VITAMIN D, 25 LEVEL (TOTAL) 02/27/2024 Insulin Level 02/27/2024 US SABRINA DOP LEG LT 07/06/2024 THYROID PANEL (T4/TSH/FREE T3) CMP (COMP MET ALVAREZ) w/eGFR CKD-EPI 2024 Insurance Providers Payer Name Payer Address Payer Phone Subscriber Number Group Number Insured Name Patient Relationship to Insured Coverage Start Date Coverage End Date TANIYA GAGE [address] [place] [address] [id number] Cielo Ray Self - patient is the insured Medications Administered Medication Instructions Date of Administration Dosage Notes Ceftriaxone 1 gram 08/02/2024 1 g Ketorolac Tromethamine 06/13/2023 60 mg 60 Ketorolac [...] Right Foot Surgery- neuroma taken out APPENDECTOMY CHOLECYSTECTOMY HYSTERECTOMY TOTAL
--- OUTSIDE RECORDS SUMMARY | 2024-08-13 16:08 | XMS_ITS | Encounter Summary ---
Author Organization [facility] Address [address] [place] [address] Care Team Providers Care Quarter Seamer Name Role Phone Teresa Portillo MD Unavailable [phone] Paul Villatoro MD Primary Care Provider [phone] Encounter Details Date Type Department Care Team (Late st Contact Info) Description 03/15/2024 Abstract [facility] [address] [place] [id number] Luiz Bryson, DPM FACFAS [address] [place] [address] Social History Tobacco Use Types [...] on filedocumented in this encounter Care Teams Quarter Seamer Relationship Specialty Start Date End Date Paul Villatoro MD [address] [place] [address] PCP - General Family Medicine 09/13/23 Teresa Portillo MD [address] [place] [address] Referring Physician Family Medicine 07/05/23 documented as of this encounter
--- OUTSIDE RECORDS SUMMARY | 2024-08-13 16:08 | XMS_ITS | Encounter Summary ---
Author Organization [facility] Address [address] [place] [address] Care Team Providers Care Tug Boat Captain Name Role Phone Teresa Portillo MD Unavailable [phone] Paul Villatoro MD Primary Care Provider [phone] Encounter Details Date Type Department Care Team (Late st Contact Info) Description 02/29/2024 Clinisync Result Encounter [facility] External Department Unsolicited Luiz Bryson, DPM [facility] [address] [place] [id number] Social History Tobacco Use Types Packs/Day Years [...] EST Narrative 02/29/2024 8:47 PM EST The [address] [address] Electrocardiograph Report Signed Patient: CIELO STEVENS MR#: [id number] : 1965 Acct:[id number] Age/Sex: 58 / F ADM Date: 02/29/24 Loc: CARD Attending Dr: LUIZ BRYSON M.D. Ordering Physician: LUIZ BRYSON M.D. Date of Service: 02/29/24 Procedure(s): ECG 12 lead Accession Number(s): [id number] cc: [facility] Test Date: 2024-02-29 Pat Name: CIELO STEVENS Department: Room: - Gender: Female Police Communications Dispatcher: : 1965 Requested By: [id number] Order Number: [id number] Reading MD: JOEY VINSON Measurements Intervals [place] Rate: 86 P: 68 NM: 162 QRS: 57 QRSD: 90 T: 51 QT: 351 QTc: 421 Interpretive Statements SINUS RHYTHM No previous ECG available for comparison Electronically Signed On 02-29-2024 20:47:12 EST by JOEY VINSON Dictated By: Joey Vinson D.O. Signed By: 02/29/24204602/29/242046 DD/ 1507 TD/TT: Dietary Aide Teacher: Procedure Note Radiology, Radiologist, MD - 02/29/2024 [place] [address] Electrocardiograph Report Signed Patient: CIELO STEVENS EMR#: [id number] : 1965Acct:[id number] Age/Sex: 58 / FADM Date: 02/29/24 Loc: CARD Attending Dr: LUIZ BRYSON M.D. Ordering Physician: LUIZ BRYSON M.D. Date of Service: 02/29/24 Procedure(s): ECG 12 lead Accession Number(s): [id number] cc: [facility] Test Date: 2024-02-29 Pat Name: CIELO STEVENS Department: Room: - Gender: Female Police Communications Dispatcher: : 1965 Requested By: [id number] Order Number: [id number] Reading MD: JOEY VINSON Measurements Intervals [place] Rate: 86 P: 68 NM: 162 QRS: 57 QRSD: 90 T: 51 QT: 351 QTc: 421 Interpretive Statements SINUS RHYTHM No previous ECG available for comparison Electronically Signed On 02-29-2024 20:47:12 EST by JOEY VINSON Dictated By: Joey Vinson D.O. Signed By:02/29/24204602/29/242046 DD/ 150 TD/TT: Dietary Aide Teacher: us Luiz Bryson DPM [facility] Final Result documented in this encounter Visit Diagnoses Not on filedocumented in this encounter Care Teams Tug Boat Captain Relationship Specialty Start Date End Date Paul Villatoro MD [address] [place] [address] PCP - General Family Medicine 09/13/23 Teresa Portillo MD [address] [place] [address] Referring Physician Family Medicine 07/05/23 documented as of this encounter
--- OUTSIDE RECORDS SUMMARY | 2024-08-13 16:08 | XMS_ITS | Encounter Summary ---
Author Organization [facility] Address [address] [place] [address] Care Team Providers Care Seasonal Recruiter Name Role Phone Teresa Portillo MD Unavailable [phone] Paul Villatoro MD Primary Care Provider [phone] Encounter Details Date Type Department Care Team (Late st Contact Info) Description 03/15/2024 Abstract [facility] [address] [place] [address] Salvatore Bryson, DPM FACFAS [address] [place] [address] Social History Tobacco Use Types Packs/Day Years [...] on filedocumented in this encounter Care Teams Seasonal Recruiter Relationship Specialty Start Date End Date Paul Villatoro MD [address] [place] [address] PCP - General Family Medicine 09/13/23 Teresa Portillo MD [address] [place] [address] Referring Physician Family Medicine 07/05/23 documented as of this encounter
--- OUTSIDE RECORDS SUMMARY | 2024-08-13 16:08 | XMS_ITS | Clinical Summary ---
Author Organization [facility] Address [address] [place] [address] Care Team Providers Care Patient Support Representative Name Role Phone Teresa Portillo MD Unavailable [phone] Paul Villatoro MD Primary Care Provider [phone] Medications No known medications Active Problems No known active problems Social History Tobacco Use Types Packs/Day Years [...] (Season Ended) 2024 Insurance [employer]BS Care Teams Patient Support Representative Relationship Specialty Start Date End Date Paul Villatoro MD [address] [place] [address] PCP - General Family Medicine 09/13/23 Teresa Portillo MD [address] [place] [address] Referring Physician Family Medicine 07/05/23
--- OUTSIDE RECORDS SUMMARY | 2024-08-13 16:08 | XMS_ITS | Encounter Summary ---
Author Organization [facility] Address [address] [place] [address] Care Team Providers Care Tax Senior Associate Name Role Phone Teresa Portillo MD Unavailable [phone] Paul Villatoro MD Primary Care Provider [phone] Encounter Details Date Type Department Care Team (Late st Contact Info) Description 04/11/2024 Abstract [facility] [address] [place] [address] Salvatore Bryson, DPM FACFAS [address] [place] [address] Social History Tobacco Use Types Packs/Day Years [...] on filedocumented in this encounter Care Teams Tax Senior Associate Relationship Specialty Start Date End Date Paul Villatoro MD [address] [place] [address] PCP - General Family Medicine 09/13/23 Teresa Portillo MD [address] [place] [address] Referring Physician Family Medicine 07/05/23 documented as of this encounter
[2024-08-13] MEDS: PIPERACILLIN SODIUM/TAZOBACTAM 4.5 GM in 0.9 % SODIUM CHLORIDE 50 ML IV (16:21)
[2024-08-13 16:22] LABS: Hematocrit 40.0 % (36.0-48.0); Hemoglobin 12.9 g/dL (12.0-16.0); Immature Granulocytes Abs Auto 0.02 10^3/uL (0.00-0.03); Immature Granulocytes Pct Auto 0.3 % (0.0-0.5); Lymphocytes Absolute Auto 2.3 10^3/uL (1.2-3.8); Mean Corpuscular HGB Conc 32.3 g/dL (29.9-35.2); Mean Corpuscular Hemoglobin 29.8 pg (26.7-34.0); Mean Corpuscular Volume 92.4 fL (81.0-99.0); Platelet Count 300 10^3/uL (150-450); Red Blood Count 4.33 10^6/uL (4.20-5.40); White Blood Count 7.5 10^3/uL (4.0-11.0)
[2024-08-13 16:37] LABS: Alanine Aminotransferase 28 U/L (14-59); Albumin Globulin Ratio 0.8; Albumin Level 3.3 g/dL (3.4-5.0); Alkaline Phosphatase 122 U/L (46-116); Anion Gap 17.6; Aspartate Amino Transferase 30 U/L (15-37); Blood Urea Nitrogen 21.0 mg/dL (7.0-18.0); Calcium 9.4 mg/dL (8.5-10.1); Carbon Dioxide 22.3 mmol/L (21.0-32.0); Chloride 107 mmol/L (98-107); Estimated GFR (African America >60 (>=60 mL/min/1.73m^2); Estimated GFR (Non-African Ame >60 (>=60 mL/min/1.73m^2); Globulin 4.0 g/dL; Glucose 90 mg/dL (74-106); Magnesium 2.0 mg/dL (1.8-2.4); Potassium 3.9 mmol/L (3.5-5.1); Sodium 143 mmol/L (136-145); Total Protein 7.3 g/dL (6.4-8.2)
[2024-08-13 16:39] LABS: Lactate/Lactic Acid 0.6 mmol/L (0.4-2.0)
[2024-08-13] MEDS: VANCOMYCIN HCL 1,250 MG in 0.9 % SODIUM CHLORIDE 250 ML 250 MG IV (16:41)
[2024-08-13] MEDS: OXYCODONE HCL/ACETAMINOPHEN 5MG/325MG 1 TAB PO (17:45)
[2024-08-13] MEDS: HYDRALAZINE HCL 20 MG/ML VIAL 10 MG IVP (18:36)
--- NOTE | 2024-08-13 18:43 | P.HP_ITS ---
HPI H&P: HPI History of Present Illness Chief complaint: LOWER EXTREMITY PAIN, L LEG CELLULITIS Narrative: Patient has been seen at least 3 times in the last 4 weeks for cellulitis of her left lower extremity, she been on 4 different antibiotics, the last combination was doxycycline and cefdinir, no significant improvement pain persisting, ultrasound done in ER showed no DVT, with the erythema and no other source confirming the cellulitis despite normal white blood cell count which would be typical with cellulitis as a localized infection. When I saw patient up in the medical surgical floor, resting comfortably in bed, she does have pain with activity Opioid HPI Opioid Management Most Recent Pain and Opioid Data: Last Pain Scale 6 Today, 17:45 Last MAR Pain Assessment Today, 17:45 Last ORT Total Score 0 Today, 18:10 Last ORT Risk Category Low Risk Today, 18:10 Review of Systems ROS Status of ROS 10 or more systems reviewed and unremark able except as noted in history and below PFSH PFSH Medical History Hypertension ?I10 - Essential (primary) hypertension (ICD-10) Arthritis, rheumatoid ?M06.9 - Rheumatoid arthritis, unspecified (ICD-10) Surgical History (Updated 08/13/24 @ 18:04 by Kaila Lozoya) History of cholecystectomy ?Z90.49 - Acquired absence of other specified parts of digestive tract (ICD- 10) Hx of appendectomy ?Z90.49 - Acquired absence of other specified parts of digestive tract (ICD- 10) H/O: hysterectomy ?Z90.710 - Acquired absence of both cervix and uterus (ICD-10) S/P foot surgery, right ?Z98.890 - Other specified postprocedural states (ICD-10) Family History (Updated 08/13/24 @ 18:05 by Kaila Lozoya) Mother Family history of cancer Family history of hypertension Social History (Updated 08/13/24 @ 18:07 by Kaila Lozoya) Within the past year, how often did you have a drink containing alcohol: 2-4 times a month Within the past year, how many standard drinks containing alcohol did you have on a typical day: 1 or 2 Within the past year, how often did you have six or more drinks on one occasion: never Total score: 0 Score interpretation: A score less than 3 is consistent with normal alcohol consumption. Smoking status: Former smoker Non-prescribed substance use: denies use Previous occupational history: [employer] Highest level of school completed/degree received: high school graduate Little interest or pleasure in doing things: not at all Feeling down, depressed, or hopeless: not at all Feel stressed/tense/nervous/anxious/difficulty sleeping: not at all Gender Identity: female Meds Home Medications and Allergies Home Medications ?Medication ?Instructions ?Recorded ?Confirmed ?Type cefdinir 300 mg capsule 300 mg PO BID 08/13/2408/13 History cetirizine 10 mg tablet 10 mg PO DAILY 08/13/2407/17 History doxycycline monohydrate 100 mg 100 mg PO BID 08/13/24 08/13/24 History capsule leflunomide 20 mg tablet 20 mg PO DAILY 08/13/2407/17 History meloxicam 15 mg tablet 15 mg PO DAILY 08/13/2407/17 History Allergies Allergy/AdvReac Type Severity Reaction Status Date / Time No Known Drug Allergies Allergy Verified 08/13/24 16:01 Exam Constitutional Vital Signs, click to edit/add: Last Vital Signs Temp 97.4 F L 08/13/24 18:10 Pulse 89 08/13/24 18:10 Resp 18 08/13/24 18:10 BP 186/108 H 08/13/24 18:10 Pulse Ox 98 08/13/24 18:10 O2 Del Method Room Air 08/13/24 17:51 Documenting provider has reviewed patient's vital signs: yes Common normals: no apparent distress Chest Common normals: inspection of chest normal Respiratory Common normals: normal respiratory effort and no retractions Cardio Common normals: regular rate, regular rhythm and no murmurs GI Common normals: Normal to inspection, nondistended, normoactive bowel sounds present, soft to palpation and non-tender Back & Pelvis Common normals: no CVA tenderness and thoracic and lumbar spine normal to inspection Extremity Common normals: abnormal to inspection (Rubor, calor, dolor left lower extremity, just above ankle) General: no pallor and pulses normal Results Labs Labs: Short CBC 08/13/24 Range/Units 16:06 WBC 7.5 (4.0-11.0) 10^3/uL Hgb 12.9 (12.0-16.0) g/dL Hct 40.0 (36.0-48.0) % Plt Count 300 (150-450) 10^3/uL BMP 08/13/24 16:06 Sodium 143 Potassium 3.9 Chloride 107 Carbon Dioxide 22.3 BUN 21.0 H Creatinine 0.80 Glucose 90 Calcium 9.4 Liver Function 08/13/24 Range/Units 16:06 Total Bilirubin 0.7 (0.2-1.0) mg/dL AST 30 (15-37) U/L ALT 28 (14-59) U/L Alkaline Phosphatase 122 H (46-116) U/L Albumin 3.3 L (3.4-5.0) g/dL Assessment and Plan Assessment and Plan (1) Cellulitis of left leg: (2) Left leg pain: (3) Failure of outpatient treatment: (4) Hypertension: (5) Arthritis, rheumatoid: Plan Admission findings: Sinus tachycardia, uncontrolled hypertension, elevated liver function test and elevated CRP secondary to failed outpatient treatment of cellulitis left lower extremity, patient has been on 4 different medications over the last 3 to 4 weeks without improvement. Cellulitis left lower extremity complicated by immune deficiency secondary to treatment for rheumatoid arthritis-Zosyn and vancomycin, blood cultures pending, venous Doppler negative, normal capillary refill would make suspicion for arterial disease unlikely Uncontrolled hypertension-as needed hydralazine, will start patient on low-dose lisinopril Rheumatoid arthritis-maintain regular medications Seasonal allergic rhinitis-maintain home medications Admission status: Patient with failed outpatient treatment over last 3 to 4 weeks with 3-4 different p.o. antibiotics, medically necessary treatment will span 2 midnights. Inpatient status
[2024-08-13] MEDS: LISINOPRIL 10 MG TABLET PO (19:53)
[2024-08-14] VITALS (9 sets, daily range): BP systolic 115–150; BP diastolic 71–88; PULSE 78–90; TEMP 36.6–36.8; O2SAT 93–96
[2024-08-14] MEDS: PIPERACILLIN SODIUM/TAZOBACTAM 3.375 GM in 0.9 % SODIUM CHLORIDE 50 ML IV ×4 (00:12→22:05)
[2024-08-14] MEDS: VANCOMYCIN HCL 1,250 MG in 0.9 % SODIUM CHLORIDE 250 ML 166.667 MG IV (04:53)
[2024-08-14 05:40] LABS: Hematocrit 35.6 % (36.0-48.0); Hemoglobin 11.5 g/dL (12.0-16.0); Immature Granulocytes Abs Auto 0.01 10^3/uL (0.00-0.03); Immature Granulocytes Pct Auto 0.2 % (0.0-0.5); Lymphocytes Absolute Auto 2.1 10^3/uL (1.2-3.8); Mean Corpuscular HGB Conc 32.3 g/dL (29.9-35.2); Mean Corpuscular Hemoglobin 29.9 pg (26.7-34.0); Mean Corpuscular Volume 92.7 fL (81.0-99.0); Platelet Count 236 10^3/uL (150-450); Red Blood Count 3.84 10^6/uL (4.20-5.40); White Blood Count 5.6 10^3/uL (4.0-11.0)
[2024-08-14 06:10] LABS: Alanine Aminotransferase 22 U/L (14-59); Albumin Globulin Ratio 0.7; Albumin Level 2.4 g/dL (3.4-5.0); Alkaline Phosphatase 95 U/L (46-116); Anion Gap 14.7; Aspartate Amino Transferase 24 U/L (15-37); Blood Urea Nitrogen 15.0 mg/dL (7.0-18.0); Calcium 8.5 mg/dL (8.5-10.1); Carbon Dioxide 22.5 mmol/L (21.0-32.0); Chloride 112 mmol/L (98-107); Estimated GFR (African America >60 (>=60 mL/min/1.73m^2); Estimated GFR (Non-African Ame >60 (>=60 mL/min/1.73m^2); Globulin 3.5 g/dL; Glucose 92 mg/dL (74-106); Magnesium 2.1 mg/dL (1.8-2.4); Potassium 4.2 mmol/L (3.5-5.1); Sodium 145 mmol/L (136-145); Total Protein 5.9 g/dL (6.4-8.2)
--- OUTSIDE RECORDS SUMMARY | 2024-08-14 07:10 | XMS_ITS | Encounter Summary ---
Author Organization [facility] Address [address] [place] [address] Care Team Providers Care Generator Operator Name Role Phone Teresa Portillo MD Unavailable [phone] Paul Villatoro MD Primary Care Provider [phone] Encounter Details Date Type Department Care Team (Late st Contact Info) Description 07/12/2023 Abstract [facility] [address] [place] [address] Salvatore Bryson, DPM FACFAS [address] [place] [address] Social History Tobacco Use Types Packs/Day Years [...] on filedocumented in this encounter Care Teams Generator Operator Relationship Specialty Start Date End Date Paul Villatoro MD [address] [place] [address] PCP - General Family Medicine 09/13/23 Teresa Portillo MD [address] [place] [address] Referring Physician Family Medicine 07/05/23 documented as of this encounter
--- OUTSIDE RECORDS SUMMARY | 2024-08-14 07:11 | XMS_ITS | Encounter Summary ---
Author Organization [facility] Address [address] [place] [address] Care Team Providers Care Process Expert Name Role Phone Teresa Portillo MD Unavailable [phone] Paul Villatoro MD Primary Care Provider [phone] Encounter Details Date Type Department Care Team (Late st Contact Info) Description 04/11/2024 Abstract [facility] [address] [place] [address] Salvatore Bryson, DPM FACFAS [address] [place] [address] Social History Tobacco Use Types Packs/Day Years [...] on filedocumented in this encounter Care Teams Process Expert Relationship Specialty Start Date End Date Paul Villatoro MD [address] [place] [address] PCP - General Family Medicine 09/13/23 Teresa Portillo MD [address] [place] [address] Referring Physician Family Medicine 07/05/23 documented as of this encounter
--- OUTSIDE RECORDS SUMMARY | 2024-08-14 07:11 | XMS_ITS | Patient Health Record ---
Author Organization [facility] [place] Address [address] [place] [address] Care Team Providers Care Inspectors And Regulatory Officers Name Role Phone Teresa De Primary Care Provider [phone] Wilbert Unavailable [phone] Allergies No Known Allergies Results Component Value Reference Range Notes CBC AUTO DIFF Reviewed date:09/26/2023 04:05:27 PM Interpretation: Performing Lab: Notes/Report: [facility] , White Blood Count 7.4 [...] Performing Lab: see note ML - [facility] LB Erythrocyte Sedimentation Ra te Reviewed date:09/26/2023 04:05:27 PM Interpretation: Performing Lab: Notes/Report: [facility] , Erythrocyte Sedimentation Rate 62 <=30 mm/hr Performing Lab: see note ML - [facility] LB CBC AUTO DIFF Reviewed date:02/13/2024 08:20:04 AM Interpretation: Performing Lab: Notes/Report: [facility] , White Blood Count 7.4 4.0-11.0 [...] Performing Lab: see note ML - [facility] LB CREATININE Reviewed date:02/13/2024 08:20:04 AM Interpretation: Performing Lab: Notes/Report: [facility] , Creatinine 0.87 0.55-1.02 mg/dL Estimated GFR ( Sarah >60 >=60 mL/min/1.73m 2 Estimated GFR (Non- Kriss >60 >=60 mL/min/1.73m 2 Performing Lab: see note ML - [facility] LB LIVER PROFILE Reviewed date:02/13/2024 08:20:04 AM Interpretation: Performing Lab: Notes/Report: [facility] , Bilirubin Total 0.6 0.2-1.0 mg/dL Bilirubin Direct 0.1 0.0-0.2 mg/dL Aspartate Amino Transferase 17 15-37 U/L Alanine Aminotransferase 29 14-59 U/L Alkaline Phosphatase 94 46-116 U/L Total Protein 7.2 6.4-8.2 g/dL Albumin Level 3.3 3.4-5.0 g/dL Globulin 3.9 Albumin Globulin Ratio 0.8 Performing Lab: see note ML - [facility] Erythrocyte Sedimentation Ra te Reviewed date:02/13/2024 08:20:04 AM Interpretation: Performing Lab: Notes/Report: [facility] , Erythrocyte Sedimentation Rate 44 <=30 mm/hr Performing Lab: see note ML - [facility] INSULIN Reviewed date:03/13/2024 10:57:51 AM Interpretation: Performing Lab: Notes/Report: [facility] , Insulin 27.4 2.6-24.9 uIU/mL Performed at: - [facility] [address] [id number] Traffic Reporter: Charlie Arevalo PhD, Phone: [phone] Performing Lab: see note - [facility] LB IRON Reviewed date:03/13/2024 10:57:51 AM Interpretation: Performing Lab: Notes/Report: [facility] , Iron 63.0 50.0-170.0 ug/dL Performing Lab: see note ML - [facility] LB VITAMIN D 25 [place] Reviewed date:03/13/2024 10:57:51 AM Interpretation: Performing Lab: Notes/Report: [facility] , Vitamin D 34.2 <20 ng/mL Vit D deficient 20-<30 ng/mL Vit D insufficient 30-100 ng/mL Vit D sufficient >100 ng/mL Potential Toxicity Performing Lab: see note ML - [facility] LB CREATININE Reviewed date:04/02/2024 11:09:48 AM Interpretation: Performing Lab: Notes/Report: [facility] , Creatinine 0.97 0.55-1.02 mg/dL Estimated GFR ( Sarah >60 >=60 mL/min/1.73m 2 Estimated GFR (Non- Kriss 59 >=60 mL/min/1.73m 2 Performing Lab: see note ML - [facility] LB LIVER PROFILE Reviewed date:04/02/2024 11:09:48 AM Interpretation: Performing Lab: Notes/Report: [facility] , Bilirubin Total 0.7 0.2-1.0 mg/dL Bilirubin Direct 0.1 0.0-0.2 mg/dL Aspartate Amino Transferase 32 15-37 U/L Alanine Aminotransferase 51 14-59 U/L Alkaline Phosphatase 112 46-116 U/L Total Protein 7.5 6.4-8.2 g/dL Albumin Level 3.3 3.4-5.0 g/dL Globulin 4.2 Albumin Globulin Ratio 0.8 Performing Lab: see note ML - [facility] LB Erythrocyte Sedimentation Ra te Reviewed date:04/02/2024 11:09:48 AM Interpretation: Performing Lab: Notes/Report: [facility] , Erythrocyte Sedimentation Rate 41 <=30 mm/hr Performing Lab: see note ML - [facility] LB CBC AUTO DIFF Reviewed date:05/09/2024 11:52:31 AM Interpretation: Performing Lab: Notes/Report: [facility] , White Blood Count 6.0 4.0-11.0 [...] Performing Lab: see note ML - [facility] LB CREATININE Reviewed date:05/09/2024 11:52:31 AM Interpretation: Performing Lab: Notes/Report: [facility] , Creatinine 0.92 0.55-1.02 mg/dL Estimated GFR ( Sarah >60 >=60 mL/min/1.73m 2 Estimated GFR (Non- Kriss >60 >=60 mL/min/1.73m 2 Performing Lab: see note ML - [facility] LB LIVER PROFILE Reviewed date:05/09/2024 11:52:31 AM Interpretation: Performing Lab: Notes/Report: [facility] , Bilirubin Total 0.6 0.2-1.0 mg/dL Bilirubin Direct 0.1 0.0-0.2 mg/dL Aspartate Amino Transferase 45 15-37 U/L Alanine Aminotransferase 51 14-59 U/L Alkaline Phosphatase 93 46-116 U/L Total Protein 7.1 6.4-8.2 g/dL Albumin Level 3.6 3.4-5.0 g/dL Globulin 3.5 Albumin Globulin Ratio 1.0 Performing Lab: see note ML - [facility] LB Erythrocyte Sedimentation Ra te Reviewed date:05/09/2024 11:52:23 AM Interpretation: Performing Lab: Notes/Report: [facility] , Erythrocyte Sedimentation Rate 33 <=30 mm/hr Performing Lab: see note ML - [facility] LB MM tomosynthesis screening B I Reviewed date:07/25/2024 10:00:17 AM Interpretation: Performing Lab: Notes/Report: Source Facility: [place] [address] [place] [address] Mammography Report Signed Patient: CIELO RAY MR#: [id number] : 1965 Acct:[id number] Age/Sex: 58 / F ADM Date: 07/24/24 Loc: MAMMO Attending Dr: TERESA DE Ordering Physician: TERESA DE Results: Date of Service: 07/24/24 Follow Up: Procedure(s): MM tomosynthesis screening BI Accession Number(s): [id number] cc: TERESA DE Patient Name: CIELO RAY MR#: [id number] : 1965 Exam Date: 07/24/2024 Ordering Doctor: TERESA DE [facility] REPORT PROCEDURE: MM TOMOSYNTHESIS SCREENING BI [...] breast cancer at age 45. LOCATION: [facility] BREAST COMPOSITION: There are scattered areas of [...] M.D. Signed By: 07/24/241605 DD/ 04 TD/TT: Forest Firefighter: [place] [address] Mammography Report Signed Patient: JASON RAY MR#: [id number] : 1965 Acct:[id number] Age/Sex: 58 / F ADM Date: 07/24/24 Loc: MAMMO Attending Dr: TERESA DE Ordering Physician: TERESA DE Results: Date of Service: 12/08 Follow Up: Procedure(s): MM tomosynthesis screening BI Accession Number(s): [id number] cc: TERESA DE Patient Name: CIELO RAY MR#: [id number] : 1965 Exam Date: 07/24/2024 Ordering Doctor: PHILIPP DE [facility] REPORT PROCEDURE: MM TOMOSYNTHESIS SCREENING BI [...] Can cer No Treatments None Family Cancers Mothe r with breast cancer at age 45. LOCATION: [facility] BREAST COMPOSITION: There are scattered areas of [...] M.D. Signed By: 07/24/241605 DD/ 04 TD/TT: Forest Firefighter: CBC AUTO DIFF Reviewed date:08/13/2024 09:05:03 PM Interpretation: Performing Lab: Notes/Report: [facility] , White Blood Count 7.5 4.0-11.0 10 3/uL Red Blood Count 4.33 4.20-5.40 10 6/uL Hemoglobin 12.9 12.0-16.0 g/dL Hematocrit 40.0 36.0-48.0 % Mean Corpuscular Volume 92.4 81.0-99.0 fL Mean Corpuscular Hemoglobin 29.8 26.7-34.0 pg Mean Corpuscular HGB Conc 32.3 29.9-35.2 g/dL Red Cell Distribution Width 14.5 11.0-15.0 % Platelet Count 300 150-450 10 3/uL Mean Platelet Volume 9.6 9.5-13.5 fL Neutrophils Percent Auto 56.8 43.0-75.0 % Lymphocytes Percent Auto 30.4 20.5-60.0 % Monocytes Percent Auto 7.7 1.7-12.0 % Eosinophils Percent Auto 3.7 0.9-7.0 % Basophils Percent Auto 1.1 0.2-2.0 % Immature Granulocytes Pct Auto 0.3 0.0-0.5 % Neutrophils Absolute Auto 4.3 1.4-6.5 10 3/uL Lymphocytes Absolute Auto 2.3 1.2-3.8 10 3/uL Monocytes Absolute Auto 0.6 0.3-0.8 10 3/uL Eosinophils Absolute Auto 0.3 0.0-0.7 10 3/uL Basophils Absolute Auto 0.1 0.0-0.1 10 3/uL Immature Granulocytes Abs Auto 0.02 0.00-0.03 10 3/uL Performing Lab: see note ML - [facility] LB CRP Reviewed date:08/13/2024 09:05:03 PM Interpretation: Performing Lab: Notes/Report: [facility] , C Reactive Protein 0.65 <=0.50 mg/dL Performing Lab: see note ML - [facility] LB LACTATE or LACTIC ACID Reviewed date:08/13/2024 09:05:03 PM Interpretation: Performing Lab: Notes/Report: [facility] , Lactate/Lactic Acid 0.6 0.4-2.0 mmol/L Performing Lab: see note ML - [facility] LB MAGNESIUM Reviewed date:08/13/2024 09:05:03 PM Interpretation: Performing Lab: Notes/Report: [facility] , Magnesium 2.0 1.8-2.4 mg/dL Performing Lab: see note ML - [facility] LB PROF 14(COMP METB) Reviewed date:08/13/2024 09:05:03 PM Interpretation: Performing Lab: Notes/Report: [facility] , Sodium 143 136-145 mmol/L Potassium 3.9 3.5-5.1 mmol/L Chloride 107 98-107 mmol/L Carbon Dioxide 22.3 21.0-32.0 mmol/L Anion Gap 17.6 Glucose 90 74-106 mg/dL Blood Urea Nitrogen 21.0 7.0-18.0 mg/dL Creatinine 0.80 0.55-1.02 mg/dL Estimated GFR ( Sarah >60 >=60 mL/min/1.73m 2 Estimated GFR (Non- Kriss >60 >=60 mL/min/1.73m 2 BUN Creatinine Ratio 26.3 Calcium 9.4 8.5-10.1 mg/dL Bilirubin Total 0.7 0.2-1.0 mg/dL Aspartate Amino Transferase 30 15-37 U/L Alanine Aminotransferase 28 14-59 U/L Alkaline Phosphatase 122 46-116 U/L Total Protein 7.3 6.4-8.2 g/dL Albumin Level 3.3 3.4-5.0 g/dL Globulin 4.0 Albumin Globulin Ratio 0.8 Performing Lab: see note ML - [facility] LB Erythrocyte Sedimentation Ra te Reviewed date:08/13/2024 09:05:03 PM Interpretation: Performing Lab: Notes/Report: [facility] , Erythrocyte Sedimentation Rate 50 <=30 mm/hr Performing Lab: see note ML - [facility] CBC AUTO DIFF (Not yet revie wed by provider) Interpretation: Performing Lab: Notes/Report: [facility] , White Blood Count 5.6 4.0-11.0 10 3/uL Red Blood Count 3.84 4.20-5.40 10 6/uL Hemoglobin 11.5 12.0-16.0 g/dL Hematocrit 35.6 36.0-48.0 % Mean Corpuscular Volume 92.7 81.0-99.0 fL Mean Corpuscular Hemoglobin 29.9 26.7-34.0 pg Mean Corpuscular HGB Conc 32.3 29.9-35.2 g/dL Red Cell Distribution Width 14.6 11.0-15.0 % Platelet Count 236 150-450 10 3/uL Mean Platelet Volume 9.2 9.5-13.5 fL Neutrophils Percent Auto 45.4 43.0-75.0 % Lymphocytes Percent Auto 36.9 20.5-60.0 % Monocytes Percent Auto 10.2 1.7-12.0 % Eosinophils Percent Auto 5.5 0.9-7.0 % Basophils Percent Auto 1.8 0.2-2.0 % Immature Granulocytes Pct Auto 0.2 0.0-0.5 % Neutrophils Absolute Auto 2.6 1.4-6.5 10 3/uL Lymphocytes Absolute Auto 2.1 1.2-3.8 10 3/uL Monocytes Absolute Auto 0.6 0.3-0.8 10 3/uL Eosinophils Absolute Auto 0.3 0.0-0.7 10 3/uL Basophils Absolute Auto 0.1 0.0-0.1 10 3/uL Immature Granulocytes Abs Auto 0.01 0.00-0.03 10 3/uL Performing Lab: see note ML - [facility] LB CRP (Not yet reviewed by pro vider) Interpretation: Performing Lab: Notes/Report: [facility] , C Reactive Protein 0.76 <=0.50 mg/dL Performing Lab: see note ML - [facility] LB MAGNESIUM (Not yet reviewed by provider) Interpretation: Performing Lab: Notes/Report: [facility] , Magnesium 2.1 1.8-2.4 mg/dL Performing Lab: see note ML - [facility] LB PROF 14(COMP METB) (Not yet reviewed by provider) Interpretation: Performing Lab: Notes/Report: [facility] , Sodium 145 136-145 mmol/L Potassium 4.2 3.5-5.1 mmol/L Chloride 112 98-107 mmol/L Carbon Dioxide 22.5 21.0-32.0 mmol/L Anion Gap 14.7 Glucose 92 74-106 mg/dL Blood Urea Nitrogen 15.0 7.0-18.0 mg/dL Creatinine 0.70 0.55-1.02 mg/dL Estimated GFR ( Sarah >60 >=60 mL/min/1.73m 2 Estimated GFR (Non- Kriss >60 >=60 mL/min/1.73m 2 BUN Creatinine Ratio 21.4 Calcium 8.5 8.5-10.1 mg/dL Bilirubin Total 0.8 0.2-1.0 mg/dL Aspartate Amino Transferase 24 15-37 U/L Alanine Aminotransferase 22 14-59 U/L Alkaline Phosphatase 95 46-116 U/L Total Protein 5.9 6.4-8.2 g/dL Albumin Level 2.4 3.4-5.0 g/dL Globulin 3.5 Albumin Globulin Ratio 0.7 Performing Lab: see note ML - [facility] LB Erythrocyte Sedimentation Ra te (Not yet reviewed by provider) Interpretation: Performing Lab: Notes/Report: [facility] , Erythrocyte Sedimentation Rate 21 <=30 mm/hr Performing Lab: see note - [facility] LB CBC AUTO DIFF Reviewed date:04/02/2024 11:09:48 AM Interpretation: Performing Lab: Notes/Report: [facility] , White Blood Count 7.4 4.0-11.0 [...] Performing Lab: see note ML - [facility] LB Manual Differential Reviewed date:03/13/2024 10:57:51 AM Interpretation: Performing Lab: Notes/Report: [facility] , Segmented Neutrophils % Manual 90.0 [...] Performing Lab: see note ML - [facility] LB Erythrocyte Sedimentation Ra te Reviewed date:03/13/2024 10:57:51 AM Interpretation: Performing Lab: Notes/Report: [facility] , Erythrocyte Sedimentation Rate 59 <=30 mm/hr Performing Lab: see note ML - [facility] LB TSH Reviewed date:03/13/2024 10:57:51 AM Interpretation: Performing Lab: Notes/Report: [facility] , Thyroid Stimulating Hormone 0.587 0.358-3.740 uIU/mL Performing Lab: see note - [facility] LB T4 Reviewed date:03/13/2024 10:57:51 AM Interpretation: Performing Lab: Notes/Report: [facility] , T4 Thyroxine 7.40 4.80-13.90 ug/dL Performing Lab: see note ML - [facility] LB PROF 14(COMP METB) Reviewed date:03/13/2024 10:57:51 AM Interpretation: Performing Lab: Notes/Report: [facility] , Sodium 139 136-145 mmol/L Potassium 4.1 [...] Performing Lab: see note ML - [facility] LB LIPID PROFILE Reviewed date:03/13/2024 10:57:51 AM Interpretation: Performing Lab: Notes/Report: [facility] , Triglycerides 52 <=150 mg/dL Cholesterol [...] >11.0 HIGH RISK Performing Lab: see note ML - [facility] LB GLYCOHEMOGLOBIN A1C Reviewed date:03/13/2024 10:57:51 AM Interpretation: Performing Lab: Notes/Report: [facility] , Glycohemoglobin A1C 5.3 4.5-6.2 % ADA RECOMMENDED LIMIT 4.0 - 6.0 ADA THERAPEUTIC TARGET < 7.0 ACTION SUGGESTED > 7.0 Estimated Average Glucose 105 Performing Lab: see note ML - [facility] LB FREE T3 Reviewed date:03/13/2024 10:57:51 AM Interpretation: Performing Lab: Notes/Report: [facility] , Free T3 2.70 2.18-3.98 pg/mL Performing Lab: see note ML - [facility] LB CBC AUTO DIFF Reviewed date:03/13/2024 10:57:51 AM Interpretation: Performing Lab: Notes/Report: [facility] , White Blood Count 6.6 4.0-11.0 [...] fL Performing Lab: see note ML - [facility] LB ECG 12 lead Reviewed date:03/01/2024 08:58:55 AM Interpretation: Performing Lab: Notes/Report: Source Facility: [facility]-[address] [place] [address] [place] [address] Electrocardiograph Report Signed Patient: CIELO RAY MR#: [id number] : 1965 Acct:[id number] Age/Sex: 58 / F ADM Date: 02/29/24 Loc: CARD Attending Dr: LUIZ BOOTHE M.D. Ordering Physician: LUIZ BOOTHE M.D. Date of Service: 02/29/24 Procedure(s): ECG 12 lead Accession Number(s): [id number] cc: [facility] Test Date: 2024-02-29 Pat Name: CIELO RAY Department: Room: - Gender: Female Literacy Consultant: : 1965 Requested By: 0719 Order Number: [id number] Reading MD: JOEY DE Measurements Intervals [place] Rate: 86 P: 68 CA: 162 QRS: 57 QRSD: 90 T: 51 QT: 351 QTc: 421 Interpretive Statements SINUS RHYTHM No previous ECG available for comparison Electronically Signed On 02-29-2024 20:47:12 EST by JOEY DE Dictated By: Joey De D.O. Signed By: 02/29/24204602/29/242046 DD/ 150 TD/TT: Forest Firefighter: [place] [address] Electrocardiograph Report Signed Patient: JASON RAY MR#: [id number] : 1965 Acct:[id number] Age/Sex: 58 / F ADM Date: 02/29/24 Loc: CARD Attending Dr: LUIZ NATARAJAN M.D. Ordering Physician: LUIZ BOOTHE M.D. Date of Service: 02/29/24 Procedure(s): ECG 12 lead Accession Number(s): [id number] cc: [facility] Test Date: 2024-02-29 Pat Name: CIELO VIZCARRA Department: 50 Room: - Gender: Female Literacy Consultant: : 1965 Requ ested By: 0719 Order Number: [id number] Reading MD: JOEY DE Measurements Intervals [place] Rate: 86 P: 68 CA: 162 QRS: 57 QRSD: 90 T: 51 QT: 351 QTc: 421 Interpretive Statements SINUS RHYTHM No previous ECG avai lable for comparison Electronically Keri d On 02-29-2024 20:47:12 EST by JOEY DE Dictated By: Joey De D.O. Signed By: 02/29/24204602/29/242046 DD/ 1507 TD/TT: Forest Firefighter: [place] Reviewed date:10/21/2023 08:38:49 AM Interpretation: Performing Lab: Notes/Report: Source Facility: [place] [address] Magnetic Resonance Report Signed Patient: CIELO RAY MR#: [id number] : 1965 Acct:[id number] Age/Sex: 57 / F ADM Date: 10/18/23 Loc: MRI Attending Dr: Luiz Alcaraz M.D. Ordering Physician: uLiz Alcaraz M.D. Date of Service: 10/18/23 Procedure(s): MR foot RT wo con Accession Number(s): [id number] cc: TERESA DE ; Luiz Alcaraz M.D. [place] [address] Patient Name: CIELO RAY MRN: [id number] date: 1965 Sex: F Assigned Patient Location: MRI Current Patient Location: Accession/Order Number: [id number] Exam Date: 10/18/2023 15:45 Report Date: 10/19/2023 [...] tendons are intact. Electronically authenticated by: CAMILO JEAN Date: 10/19/2023 12:11 Dictated By: Camilo Jean M.D. Signed By: 10/19/23 1213 DD/ 1211 TD/TT: Forest Firefighter: [place] [address] Magnetic Resonance Report Signed Patient: JASON RAY MR#: [id number] : 1965 Acct:[id number] Age/Sex: 57 / F ADM Date: 10/18/23 Loc: MRI Attending Dr: Luiz Alcaraz M.D. Ordering Physician: Luiz Alcaraz M.D. Date of Service: 10/18/23 Procedure(s): MR maddison t RT wo con Accession Number(s): [id number] cc: TERESA DE ; Luiz Alcaraz M.D. [place] [address] Patient Name: CIELO RAY MRN: [id number] date: 1965 Sex: F Assigned Patient Location: MRI Current Patient Location: Accession/Order Numb er: [id number] Exam Date: 10/18/2023 15:45 Report Date: 10/19/2023 [...] or tendons are intact. Electronically authenticated by: CAMILO JEAN Date: 10/19/2023 12:11 Dictated By: Toney Jaen M.D. Signed By: 10/19/23 1213 DD/ 1211 TD/TT: Forest Firefighter: LIVER PROFILE Reviewed date:09/26/2023 04:05:27 PM Interpretation: Performing Lab: Notes/Report: [facility] , Bilirubin Total 0.7 0.2-1.0 mg/dL Bilirubin Direct 0.1 0.0-0.2 mg/dL Aspartate Amino Transferase 26 15-37 U/L Alanine Aminotransferase 37 14-59 U/L Alkaline Phosphatase 88 46-116 U/L Total Protein 7.1 6.4-8.2 g/dL Albumin Level 3.4 3.4-5.0 g/dL Globulin 3.7 Albumin Globulin Ratio 0.9 Performing Lab: see note ML - [facility] LB CREATININE Reviewed date:09/26/2023 04:05:27 PM Interpretation: Performing Lab: Notes/Report: [facility] , Creatinine 1.01 0.55-1.02 mg/dL Estimated GFR ( Sarah >60 >=60 Estimated GFR (Non- Kriss 56 >=60 Performing Lab: see note ML - [facility] LB Reason For Referral No Information [...] 10 MG TAKE 1 TABLET BY [facility] EVERY DAY FOR 30 DAYS [...] Problem Status W/U Status Risk Notes Problem 00225964 Generalized anxiety disorder (F41.1) Active confirmed Problem 48004496 Venous insufficiency (chronic) (peripheral) (I87.2) Active confirmed Problem 242413893 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) Active confirmed Problem 281380230 Spondylosis without myelopathy or radiculopathy, cervical region (M47.812) Active confirmed Problem Exposure to communicable disease (271802439) Contact with and (suspected) exposure to other viral communicable diseases (Z20.828) Active confirmed Problem Anxiety (53417581) Anxiety (F41.9) Active confi rmed Problem Dizziness (741970012) Dizziness (R42) Active confirmed Problem 162492114 Diverticulosis (K57.90) Active confirmed Problem Arthralgia of the pelvic region and thigh (716833514) Hip pain, left (M25.552) Active confirmed Problem 203495785 Borderline hypertension (R03.0) Active confirmed Problem Serous otitis media (81709603) Serous otitis media (H65.90) Active confirmed Problem Costochondritis (17373071) Costochondritis (M94.0) Active confirmed Problem Diverticulitis (41249714) Diverticulitis (K57.92) Active confirmed Problem Angular cheilitis (960284443) Angular cheilitis (K13.0) Active confirmed Problem Ear pain, right (H92.01) Active confirmed Problem 90209937 DDD (degenerativ e disc disease), cervical (M50.30) Active confirmed Problem Dysfunction of left eustachian tube (9896021330822674) Eustachian tube dysfunction, left (H69.82) Active confirmed Problem Muscle spasm (46230495) Muscle spasm (M62.838) Active confirmed Problem Overweight (435734386) Over weight (E66.3) Active confirmed Problem Dysfunction of right eustachian tube (disorder) (7091125856753444) Eustachian tube dysfunction, right (H69.81) Active confirmed Problem Annual wellness visit (466962052699479) Wellness examination (Z00.00) Active confirmed Problem Chronic rheumatic arthritis (9059317333) Chronic rheumatic arthritis (M06.9) Active confirmed Problem Medial epicondylitis of elbow joint (52176415) Golfers elbow, left (M77.02) Active confirmed Problem 65487297 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) Active confirmed Vital Signs Heart Rate 89 /min 02/27/2024 Temperature 97.3 degrees Fahrenheit 08/13/2024 Oximetry 96 % 02/27/2024 Blood pressure diastolic 82 mm Hg 08/13/2024 Height 64 in 08/13/2024 Blood pressure systolic 124 mm Hg 08/13/2024 Weight 177.6 lbs 08/13/2024 BMI 30.48 kg/m2 08/13/2024 Encounters Encounter Location Date Provider Diagnosis [facility] [address] [facility] [place] [address] 02/27/2024 Teresa De Pre-op evaluation Z01.818 and Wellness examination Z00.00 [facility] [address] [facility] [place] [address] 05/17/2024 Wilbert Hoy Strep throat J02.0 [facility] [address] [facility] [place] [address] 07/06/2024 Teresa De Left leg pain M79.60 5 and Cough R05.9 [facility] [address] [facility] [place] [address] 07/26/2024 Teresa De Cellulitis L03.90 [facility] [address] [facility] [place] [address] 08/02/2024 Teresa De Cellulitis L03.90 [facility] [address] [facility] [place] [address] 08/13/2024 Teresa De Cellulitis L03.90 [facility] [address] [facility] [place] [address] 02/24/2024 Teresa De [facility] [address] [facility] [place] [address] 03/13/2024 Teresa De [facility] [address] [facility] [place] [address] 07/10/2024 Teresa De [facility] [address] [facility] [place] [address] 07/25/2024 Teresa De [facility] [address] [facility] [place] [address] 08/07/2024 Teresa De Assessments Encounter Date Diagnosis (ICD Code) Assessment Notes Treatment Notes Treatment Clinical Notes Section Notes 02/27/2024 Pre-op evaluation (ICD-10 - Z01.818) labs reviewed ok ekg this wed 02/27/2024 Wellness examination (ICD-10 - Z00.00) ROS done [...] until they are finished. You can use yskt-ipy-zsgvhti acetaminophen or ibuprofen if needed for pain. You can also use throat lozenges or gargle warm water to help with the sore throat. You are contagious until you have been on antibiotics for 24 hours. You should be extra vigilant about hand washing or using hand cottage attendant gel. You should follow up with your Primary Care Physician or return to clinic if not improving in the next 3-5 days. 07/06/2024 Left leg pain (ICD-10 - M79.605) probable cellulitis close monitoring if not improving 24-48 hours, getting worse on abx, needs to be seen US darrell 6 pm 07/06/2024 Cough (ICD-10 - R05.9) [...] 25 LEVEL (TOTAL) 02/27/2024 Insulin Level 02/27/2024 CBC AUTO DIFF 08/14/2024 CRP 08/14/2024 MAGNESIUM 08/14/2024 PROF 14(COMP METB) 08/14/2024 US SABRINA DOP LEG LT 07/06/2024 THYROID PANEL (T4/TSH/FREE T3) 5 Erythrocyte Sedimentation Rate CMP (COMP MET ALVAREZ) w/eGFR CKD-EPI 2024 Insurance Providers Payer Name Payer Address Payer Phone Subscriber Number Group Number Insured Name Patient Relationship to Insured Coverage Start Date Coverage End Date TANIYA GAGE [address] [place] [address] [id number] Cielo Ray Self - patient is [...]
--- OUTSIDE RECORDS SUMMARY | 2024-08-14 07:11 | XMS_ITS | Encounter Summary ---
Author Organization [facility] Address [address] [place] [address] Care Team Providers Care Quality Control Supervisor Name Role Phone Teresa Portillo MD Unavailable [phone] Paul Villatoro MD Primary Care Provider [phone] Encounter Details Date Type Department Care Team (Late st Contact Info) Description 03/15/2024 Abstract [facility] [address] [place] [id number] Luiz Bryson, DPM FACFAS [address] [place] [address] Social History Tobacco Use Types [...] on filedocumented in this encounter Care Teams Quality Control Supervisor Relationship Specialty Start Date End Date Paul Villatoro MD [address] [place] [address] PCP - General Family Medicine 09/13/23 Teresa Portillo MD [address] [place] [address] Referring Physician Family Medicine 07/05/23 documented as of this encounter
--- OUTSIDE RECORDS SUMMARY | 2024-08-14 07:11 | XMS_ITS | Clinical Summary ---
Author Organization [facility] Address [address] [place] [address] Care Team Providers Care Rail Splitter Name Role Phone Teresa Portillo MD Unavailable [phone] Paul Villatoro MD Primary Care Provider [phone] Medications No known medications Active Problems No [...] (Season Ended) 2024 Insurance [employer] Care Teams Rail Splitter Relationship Specialty Start Date End Date Paul Villatoro MD [address] [place] [id number] PCP - General Family Medicine 09/13/23 Teresa Portillo MD [address] [place] [address] Referring Physician Family Medicine 07/05/23
--- OUTSIDE RECORDS SUMMARY | 2024-08-14 07:11 | XMS_ITS | Encounter Summary ---
Author Organization [facility] Address [address] [place] [address] Care Team Providers Care Crop Puller Name Role Phone Teresa Portillo MD Unavailable [phone] Paul Villatoro MD Primary Care Provider [phone] Encounter Details Date Type Department Care Team (Late st Contact Info) Description 03/15/2024 Abstract [facility] [address] [place] [address] Salvatore Bryson, DPM FACFAS [address] [place] [address] Social History Tobacco Use Types Packs/Day Years [...] on filedocumented in this encounter Care Teams Crop Puller Relationship Specialty Start Date End Date Paul Villatoro MD [address] [place] [address] PCP - General Family Medicine 09/13/23 Teresa Portillo MD [address] [place] [address] Referring Physician Family Medicine 07/05/23 documented as of this encounter
--- OUTSIDE RECORDS SUMMARY | 2024-08-14 07:11 | XMS_ITS | Encounter Summary ---
Author Organization [facility] Address [address] [place] [address] Care Team Providers Care Collections Professional Name Role Phone Teresa Portillo MD Unavailable [phone] Paul Villatoro MD Primary Care Provider [phone] Encounter Details Date Type Department Care Team (Late st Contact Info) Description 04/11/2024 Abstract [facility] [address] [place] [address] Salvatore Bryson, DPM FACFAS [address] [place] [address] Social History Tobacco Use Types Packs/Day Years [...] on filedocumented in this encounter Care Teams Collections Professional Relationship Specialty Start Date End Date Paul Villatoro MD [address] [place] [address] PCP - General Family Medicine 09/13/23 Teresa Portillo MD [address] [place] [address] Referring Physician Family Medicine 07/05/23 documented as of this encounter
--- OUTSIDE RECORDS SUMMARY | 2024-08-14 07:11 | XMS_ITS | Encounter Summary ---
Author Organization [facility] Address [address] [place] [address] Care Team Providers Care Mid Level Provider Name Role Phone Teresa Portillo MD Unavailable [phone] Paul Villatoro MD Primary Care Provider [phone] Encounter Details Date Type Department Care Team (Late st Contact Info) Description 02/29/2024 Clinisync Result Encounter [facility] External Department Unsolicited Luiz Bryson, DPM FACFAS [address] [place] [id number] Social History Tobacco Use Types Packs/Day Years [...] EST Narrative 02/29/2024 8:47 PM EST The [address] [address] Electrocardiograph Report Signed Patient: CIELO STEVENS MR#: [id number] : 1965 Acct:[id number] Age/Sex: 58 / F ADM Date: 02/29/24 Loc: CARD Attending Dr: LUIZ BRYSON M.D. Ordering Physician: LUIZ BRYSON M.D. Date of Service: 02/29/24 Procedure(s): ECG 12 lead Accession Number(s): [id number] cc: [facility] Test Date: 2024-02-29 Pat Name: CIELO STEVENS Department: Room: - Gender: Female [employer]: : 1965 Requested By: [id number] Order Number: [id number] Reading MD: JOEY VINSON Measurements Intervals [place] Rate: 86 P: 68 NC: 162 QRS: 57 QRSD: 90 T: 51 QT: 351 QTc: 421 Interpretive Statements SINUS RHYTHM No previous ECG available for comparison Electronically Signed On 02-29-2024 20:47:12 EST by JOEY VINSON Dictated By: Joey Vinson D.O. Signed By: 02/29/24204602/29/242046 DD/ 1507 TD/TT: Research Geneticist: Procedure Note Radiology, Radiologist, MD - 02/29/2024 [place] [address] Electrocardiograph Report Signed Patient: CIELO STEVENS EMR#: [id number] : 1965Acct:[id number] Age/Sex: 58 / FADM Date: 02/29/24 Loc: CARD Attending Dr: LUIZ BRYSON M.D. Ordering Physician: LUIZ BRYSON M.D. Date of Service: 02/29/24 Procedure(s): ECG 12 lead Accession Number(s): [id number] cc: [facility] Test Date: 2024-02-29 Pat Name: CIELO STEVENS Department: Room: - Gender: Female [employer]man: : 1965 Requested By: [id number] Order Number: [id number] Reading MD: JOEY VINSON Measurements Intervals [place] Rate: 86 P: 68 NC: 162 QRS: 57 QRSD: 90 T: 51 QT: 351 QTc: 421 Interpretive Statements SINUS RHYTHM No previous ECG available for comparison Electronically Signed On 02-29-2024 20:47:12 EST by JOEY VINSON Dictated By: Joey Vinson D.O. Signed By:02/29/24204602/29/242046 DD/ 150 TD/TT: Research Geneticist: us Luiz Bryson DPM [facility] Final Result documented in this encounter Visit Diagnoses Not on filedocumented in this encounter Care Teams Mid Level Provider Relationship Specialty Start Date End Date Paul Villatoro MD [address] [place] [id number] PCP - General Family Medicine 09/13/23 Teresa Portillo MD [address] [place] [address] Referring Physician Family Medicine 07/05/23 documented as of this encounter
--- OUTSIDE RECORDS SUMMARY | 2024-08-14 07:11 | XMS_ITS | CCD ---
Author Organization [facility] Care Team Providers Care Waredresser Name Role Phone TERESA DE Attending Unavailable [...] Unavailable SANTINO, TERESA Primary Care Unavailable AHMED, RALPHAMMED Attending Unavailable AHMED, MOHAMMED Admitting Unavailable AHMED, [...] every six hours for pain HYDROcodone-aceta minophen ([place]) 5-325 MG tablet Indications: Metatarsal deformity, right [...] Surgical Pathology Reporton 03-19-2024 [place] [address]- Surgical Pathology Report Collected Date/Time: 03/15/2024 09:30 [...] and entirely submitted in one cassette. (DC) DC:[facility] Microscopic Description Microscopic examination performed unless gross only specified. This report was transcribed using voice recognition technology and might contain unintended computerized engineering executive errors. Normal [facility] Comment on above: Performed By: #### [id number] #### [facility] [address] [place] [address] GERONIMO Antinuclear Antibodieson 06-22-2022 Antinuclear Abs, IFA Negative Normal . [facility] Comment on above: Result Comment: Nega tive <1:80 Borderline 1:80 Positive >1:80 ICAP nomenclature: AC-0 For more information about Hep-2 cell patterns use ANApatterns.org, the official website for the International Consensus on Antinuclear Antibody (GERONIMO) Patterns (ICAP). Performed at: [facility] [id number] Data Administrator: Charlie Arevalo PhD, Phone: [phone] Performed By: #### A DNA, C4, GERONIMO, CH50, C3, LOZOYA #### [facility] , Anti-Lozoya Antibodieson Anti-Lozoya Antibodies <0.2 Normal 0.0-0.9 [facility] Comment on above: Performed By: #### A DNA, C4, GERONIMO, CH50, C3, LOZOYA #### [facility] , Anti-dsDNA(DBL)Abon 06-23-19 Anti-dsDNA(DBL)Ab 1 Normal 0-9 [facility] Comment on above: Result Comment: Nega tive <5 Equivocal 5 - 9 Positive >9 Performed at: [facility] [id number] Data Administrator: Charlie Arevalo PhD, Phone: [phone] PERFORMED BY: [facility] [place] [address] PATHOLOGIST [employer]ANCE WHE[employer] SCREW HOLE TAPPER EULALIA OLSEN M.D. Performed By: #### A DNA, C4, GERONIMO, CH50, C3, LOZOYA #### [facility] , C-Reactive Proteinon 023 C-Reactive Protein 1.1 mg/dL High 0.0-0.5 [facility] Comment on above: Result Comment: PERF ORMED BY: [address] [place] [address] PATHOLOGIST BALANCE WHEEL SCREW HOLE TAPPER EULALIA OLSEN M.D. Performed By: #### A DNA, C4, GERONIMO, CH50, C3, LOZOYA #### [facility] , Complement C3on 06-22-2022 Complement C3 147 mg/dL Normal 82-167 [facility] Comment on above: Result Comment: Perf ormed at: [address] [id number] Data Administrator: Charlie Arevalo PhD, Phone: [phone] Performed By: #### A DNA, C4, GERONIMO, CH50, C3, LOZOYA #### [facility] , Complement C4on 06-22-2022 Complement C4 33 mg/dL Normal 12-38 [facility] Comment on above: Performed By: #### A DNA, C4, GERONIMO, CH50, C3, LOZOYA #### [facility] , Complement Total (CH50)on Complement Total (CH50) 55 Normal >41 [facility] Comment on above: Result Comment: Age [...] determine out of range values. Performed at: [facility] [id number] Data Administrator: Charlie Arevalo PhD, Phone: [phone] PERFORMED BY: [address] [place] [address] PATHOLOGIST BALANCE WHE[employer] SCRE[employer] HOLE T[employer]PER EULALIA OLSEN M.D. Performed By: #### A DNA, C4, GERONIMO, CH50, C3, LOZOYA #### [facility] , Complete Blood Count Auto Di ffon 06-22-2022 Basophils (Bld) [#/Vol] 0.1 10*3/uL Normal 0.0-0.2 [facility] Comment on above: Performed By: #### H BCAB, HBSAG, HCV RX PCR, HBSAB #### [facility] , #### ADDONUAPLUS, ESR, CBC, CMP, CRP #### [place] [address] [place] Basophils/100 WBC (Bld) 0.7 % Normal . [facility] Comment on above: Performed By: #### H BCAB, HBSAG, HCV RX PCR, HBSAB #### [facility] , #### ADDONUAPLUS, ESR, CBC, CMP, CRP #### [address] Eosinophils (Bld) [#/Vol] 0.3 10*3/uL Normal 0.0-0.45 [facility] Comment on above: Performed By: #### H BCAB, HBSAG, HCV RX PCR, HBSAB #### [facility] , #### ADDONUAPLUS, ESR, CBC, CMP, CRP #### [address] Eosinophils/100 WBC (Bld) 3.8 % Normal . [facility] Comment on above: Performed By: #### H BCAB, HBSAG, HCV RX PCR, HBSAB #### [facility] , #### ADDONUAPLUS, ESR, CBC, CMP, CRP #### [address] Erythrocyte distribution width (RBC) [Ratio] 13.7 % Normal 11.9-15.3 [facility] Comment on above: Performed By: #### H BCAB, HBSAG, HCV RX PCR, HBSAB #### [facility] , #### ADDONUAPLUS, ESR, CBC, CMP, CRP #### [address] Hematocrit (Bld) [Volume fraction] 39.4 % Normal 34.0-46.4 [facility] Comment on above: Performed By: #### H BCAB, HBSAG, HCV RX PCR, HBSAB #### [facility] , #### ADDONUAPLUS, ESR, CBC, CMP, CRP #### [address] Hemoglobin (Bld) [Mass/Vol] 13.0 g/dL Normal 11.8-15.4 [facility] Comment on above: Performed By: #### H BCAB, HBSAG, HCV RX PCR, HBSAB #### [facility] , #### ADDONUAPLUS, ESR, CBC, CMP, CRP #### [address] Lymphocytes (Bld) [#/Vol] 2.5 10*3/uL Normal 1.00-4.8 [facility] Comment on above: Performed By: #### H BCAB, HBSAG, HCV RX PCR, HBSAB #### [facility] , #### ADDONUAPLUS, ESR, CBC, CMP, CRP #### [address] Lymphocytes/100 WBC (Bld) 35.4 % Normal . [facility] Comment on above: Performed By: #### H BCAB, HBSAG, HCV RX PCR, HBSAB #### [facility] , #### ADDONUAPLUS, ESR, CBC, CMP, CRP #### [address] MCH (RBC) [Entitic mass] 31.3 pg Normal 24.7-34.3 [facility] Comment on above: Performed By: #### H BCAB, HBSAG, HCV RX PCR, HBSAB #### [facility] , #### ADDONUAPLUS, ESR, CBC, CMP, CRP #### [address] MCV (RBC) [Entitic vol] 94.7 fL Normal 80-100 [facility] Comment on above: Performed By: #### H BCAB, HBSAG, HCV RX PCR, HBSAB #### [facility] , #### ADDONUAPLUS, ESR, CBC, CMP, CRP #### [address] Mean Corpuscular HGB Conc 33.1 g/dL Normal 32.0-35.0 [facility] Comment on above: Performed By: #### H BCAB, HBSAG, HCV RX PCR, HBSAB #### [facility] , #### ADDONUAPLUS, ESR, CBC, CMP, CRP #### [address] Monocytes (Bld) [#/Vol] 0.3 10*3/uL Normal 0.0-0.8 [facility] Comment on above: Performed By: #### H BCAB, HBSAG, HCV RX PCR, HBSAB #### [facility] , #### ADDONUAPLUS, ESR, CBC, CMP, CRP #### [address] Monocytes/100 WBC (Bld) 4.7 % Normal . [facility] Comment on above: Performed By: #### H BCAB, HBSAG, HCV RX PCR, HBSAB #### [facility] , #### ADDONUAPLUS, ESR, CBC, CMP, CRP #### [address] Neutrophils (Bld) [#/Vol] 3.9 10*3/uL Normal 1.8-7.7 [facility] Comment on above: Performed By: #### H BCAB, HBSAG, HCV RX PCR, HBSAB #### [facility] , #### ADDONUAPLUS, ESR, CBC, CMP, CRP #### [address] Neutrophils/100 WBC (Bld) 55.4 % Normal . [facility] Comment on above: Performed By: #### H BCAB, HBSAG, HCV RX PCR, HBSAB #### [facility] , #### ADDONUAPLUS, ESR, CBC, CMP, CRP #### [address] NRBC% 0.0 /100{WBC} Normal 0-0.5 [facility] Comment on above: Performed By: #### H BCAB, HBSAG, HCV RX PCR, HBSAB #### [facility] , #### ADDONUAPLUS, ESR, CBC, CMP, CRP #### [address] Platelet mean volume (Bld) [Entitic vol] 7.5 fL Normal 6.3-10.7 [facility] Comment on above: Performed By: #### H BCAB, HBSAG, HCV RX PCR, HBSAB #### [facility] , #### ADDONUAPLUS, ESR, CBC, CMP, CRP #### [address] Platelets (Bld) [#/Vol] 299 10*3/uL Normal 150-450 [facility] Comment on above: Performed By: #### H BCAB, HBSAG, HCV RX PCR, HBSAB #### [facility] , #### ADDONUAPLUS, ESR, CBC, CMP, CRP #### [address] RBC (Bld) [#/Vol] 4.17 10*6/uL Normal 3.60-5.00 [facility] Comment on above: Performed By: #### H BCAB, HBSAG, HCV RX PCR, HBSAB #### [facility] , #### ADDONUAPLUS, ESR, CBC, CMP, CRP #### [facility] [address] WBC (Bld) [#/Vol] 7.1 10*3/uL Normal 3.8-11.6 [facility] Comment on above: Performed By: #### H BCAB, HBSAG, HCV RX PCR, HBSAB #### [facility] , #### ADDONUAPLUS, ESR, CBC, CMP, CRP #### [facility] [address] Comprehensive Metabolic Pane darshan 06-22-2022 Albumin [Mass/Vol] 4.4 g/dL Normal 3.5-5.7 [facility] Comment on above: Performed By: #### A DNA, C4, GERONIMO, CH50, C3, LOZOYA #### [facility] , Albumin/Globulin [Mass ratio] 1.6 {ratio} Normal [facility] Comment on above: Performed By: #### A DNA, C4, GERONIMO, CH50, C3, LOZOYA #### [facility] , ALP [Catalytic activity/Vol] 78 U/L Normal 34-104 [facility] Comment on above: Performed By: #### A DNA, C4, GERONIMO, CH50, C3, LOZOYA #### [facility] , ALT [Catalytic activity/Vol] 21 U/L Normal 7-52 [facility] Comment on above: Performed By: #### A DNA, C4, GERONIMO, CH50, C3, LOZOYA #### [facility] , Anion gap [Moles/Vol] 12.9 mmol/L Normal 6.0-15.0 [facility] Comment on above: Performed By: #### A DNA, C4, GERONIMO, CH50, C3, LOZOYA #### [facility] , AST [Catalytic activity/Vol] 24 U/L Normal 13-39 [facility] Comment on above: Performed By: #### A DNA, C4, GERONIMO, CH50, C3, LOZOYA #### [facility] , Bilirubin [Mass/Vol] 0.9 mg/dL Normal 0.3-1.0 [facility] Comment on above: Performed By: #### A DNA, C4, GERONIMO, CH50, C3, LOZOYA #### [facility] , Calcium [Mass/Vol] 9.0 mg/dL Normal 8.6-10.3 [facility] Comment on above: Performed By: #### A DNA, C4, GERONIMO, CH50, C3, LOZOYA #### [facility] , Chloride [Moles/Vol] 106 mmol/L Normal 98-107 [facility] Comment on above: Performed By: #### A DNA, C4, GERONIMO, CH50, C3, LOZOYA #### [facility] , CO2 [Moles/Vol] 25.2 mmol/L Normal 21.0-31.0 [facility] Comment on above: Performed By: #### A DNA, C4, GERONIMO, CH50, C3, LOZOYA #### [facility] , Creatinine [Mass/Vol] 0.79 mg/dL Normal 0.60-1.20 [facility] Comment on above: Performed By: #### A DNA, C4, GERONIMO, CH50, C3, LOZOYA #### [facility] , GFR/1.73 sq M.predicted MDRD (S/P/Bld) [Vol rate/Area] mL/min/{1.73_m2} [facility] Comment on above: Performed By: #### A DNA, C4, GERONIMO, CH50, C3, LOZOYA #### [facility] , Globulin (S) [Mass/Vol] 2.8 g/dL [facility] Comment on above: Performed By: #### A DNA, C4, GERONIMO, CH50, C3, LOZOYA #### [facility] , Glucose [Mass/Vol] 97 mg/dL Normal 70-100 [facility] Comment on above: Result Comment: [place] om Glucose Reference Range is dependent on time and content of last meal. Glucose of more than 200 mg/dL in a nonstressed, ambulatory subject supports the diagnosis of Diabetes Mellitus. ADA recommended reference range Performed By: #### A DNA, C4, GERONIMO, CH50, C3, LOZOYA #### [facility] , Potassium [Moles/Vol] 4.1 mmol/L Normal 3.5-5.1 [facility] Comment on above: Performed By: #### A DNA, C4, GERONIMO, CH50, C3, LOZOYA #### [facility] , Protein [Mass/Vol] 7.2 g/dL Normal 6.4-8.9 [facility] Comment on above: Performed By: #### A DNA, C4, GERONIMO, CH50, C3, LOZOYA #### [facility] , Sodium [Moles/Vol] 140 mmol/L Normal 136-145 [facility] Comment on above: Performed By: #### A DNA, C4, GERONIMO, CH50, C3, LOZOYA #### [facility] , Urea nitrogen [Mass/Vol] 12 mg/dL Normal 7-25 [facility] Comment on above: Performed By: #### A DNA, C4, GERONIMO, CH50, C3, LOZOYA #### [facility] , Dipstick and Microscopicon 0 - Appearance (U) Clear Normal Clear [facility] Comment on above: Order Comment: Name Collection Type:: Clean-Voided Midstream Performed By: #### H BCAB, HBSAG, HCV RX PCR, HBSAB #### [facility] , #### ADDONUAPLUS, ESR, CBC, CMP, CRP #### [facility] [address] Bacteria,Urine 1+ High None Seen [facility] Comment on above: Order Comment: Name Collection Type:: Clean-Voided Midstream Performed By: #### H BCAB, HBSAG, HCV RX PCR, HBSAB #### [facility] , #### ADDONUAPLUS, ESR, CBC, CMP, CRP #### [address] Bilirubin,Urine Negative Normal Negative [facility] Comment on above: Order Comment: Name Collection Type:: Clean-Voided Midstream Performed By: #### H BCAB, HBSAG, HCV RX PCR, HBSAB #### [facility] , #### ADDONUAPLUS, ESR, CBC, CMP, CRP #### [address] Color (U) Yellow Normal Yellow [facility] Comment on above: Order Comment: Name Collection Type:: Clean-Voided Midstream Performed By: #### H BCAB, HBSAG, HCV RX PCR, HBSAB #### [facility] , #### ADDONUAPLUS, ESR, CBC, CMP, CRP #### [address] Glucose Ql (U) Normal Normal Normal [facility] Comment on above: Order Comment: Name Collection Type:: Clean-Voided Midstream Performed By: #### H BCAB, HBSAG, HCV RX PCR, HBSAB #### [facility] , #### ADDONUAPLUS, ESR, CBC, CMP, CRP #### [address] Hyaline Casts,Urine 0-8 Normal 0-8 [facility] Comment on above: Order Comment: Name Collection Type:: Clean-Voided Midstream Result Comment: PERF ORMED BY: [place] [address] PATHOLOGIST BALANCE WHE[employer] SCREW HOLE TAPPER EULALIA OLSEN M.D. Performed By: #### H BCAB, HBSAG, HCV RX PCR, HBSAB #### [facility] , #### ADDONUAPLUS, ESR, CBC, CMP, CRP #### [address] Ketones Ql (U) Negative Normal Negative [facility] Comment on above: Order Comment: Name Collection Type:: Clean-Voided Midstream Performed By: #### H BCAB, HBSAG, HCV RX PCR, HBSAB #### [facility] , #### ADDONUAPLUS, ESR, CBC, CMP, CRP #### [facility] [address] [place] [address] Leukocyte esterase Test strip Ql (U) Negative Normal Negative [facility] Comment on above: Order Comment: Name Collection Type:: Clean-Voided Midstream Performed By: #### H BCAB, HBSAG, HCV RX PCR, HBSAB #### [facility] , #### ADDONUAPLUS, ESR, CBC, CMP, CRP #### [facility] [address] [place] [address] Nitrite,Urine Negative Normal Negative [facility] Comment on above: Order Comment: Name Collection Type:: Clean-Voided Midstream Performed By: #### H BCAB, HBSAG, HCV RX PCR, HBSAB #### [facility] , #### ADDONUAPLUS, ESR, CBC, CMP, CRP #### [facility] [address] [place] [address] Occult Blood,Urine Negative Normal Negative [facility] Comment on above: Order Comment: Name Collection Type:: Clean-Voided Midstream Performed By: #### H BCAB, HBSAG, HCV RX PCR, HBSAB #### [facility] , #### ADDONUAPLUS, ESR, CBC, CMP, CRP #### [facility] [address] [place] [address] pH (U) 5.5 [pH] Normal 5.0-9.0 [facility] Comment on above: Order Comment: Name Collection Type:: Clean-Voided Midstream Performed By: #### H BCAB, HBSAG, HCV RX PCR, HBSAB #### [facility] , #### ADDONUAPLUS, ESR, CBC, CMP, CRP #### [facility] [address] Protein,Urine Negative Normal Negative [facility] Comment on above: Order Comment: Name Collection Type:: Clean-Voided Midstream Performed By: #### H BCAB, HBSAG, HCV RX PCR, HBSAB #### [facility] , #### ADDONUAPLUS, ESR, CBC, CMP, CRP #### [facility] [address] [place] [address] RBC,Urine 3-4 Normal 0-4 [facility] Comment on above: Order Comment: Name Collection Type:: Clean-Voided Midstream Performed By: #### H BCAB, HBSAG, HCV RX PCR, HBSAB #### [facility] , #### ADDONUAPLUS, ESR, CBC, CMP, CRP #### [facility] [address] [place] [address] Specificy [place],Urine 1.021 Normal 1.001-1.030 [facility] Comment on above: Order Comment: Name Collection Type:: Clean-Voided Midstream Performed By: #### H BCAB, HBSAG, HCV RX PCR, HBSAB #### [facility] , #### ADDONUAPLUS, ESR, CBC, CMP, CRP #### [facility] [address] [place] [address] Squamous Epithelial Cell,Urine 5-9 High 0-2 [facility] Comment on above: Order Comment: Name Collection Type:: Clean-Voided Midstream Performed By: #### H BCAB, HBSAG, HCV RX PCR, HBSAB #### [facility] , #### ADDONUAPLUS, ESR, CBC, CMP, CRP #### [facility] [address] [place] [address] Urobilinogen,Urine Normal Normal Normal [facility] Comment on above: Order Comment: Name Collection Type:: Clean-Voided Midstream Performed By: #### H BCAB, HBSAG, HCV RX PCR, HBSAB #### [facility] , #### ADDONUAPLUS, ESR, CBC, CMP, CRP #### [facility] [address] WBC,Urine 5-9 High 0-4 [facility] Comment on above: Order Comment: Name Collection Type:: Clean-Voided Midstream Performed By: #### H BCAB, HBSAG, HCV RX PCR, HBSAB #### [facility] , #### ADDONUAPLUS, ESR, CBC, CMP, CRP #### [facility] [address] Erythrocyte Sedimentation Ra raymond 06-22-2022 ESR (Bld) [Velocity] 36 mm/h High 0-29 [facility] Comment on above: Result Comment: PERF ORMED BY: [place] [address] PATHOLOGIST BALANCE WHE[employer] SCRE[employer]LE T[employer]PER EULALIA OLSEN M.D. Performed By: #### A DNA, C4, GERONIMO, CH50, C3, LOZOYA #### [facility] , Hep C Ab wRfx to Qnt PCRon 0 06-22-2022 Hepatitis C Virus Antibody Non-Reactive Normal Non Reactive [facility] Comment on above: Performed By: #### A DNA, C4, GERONIMO, CH50, C3, LOZOYA #### [facility] , Interpretation Hepatitis C Normal . [facility] Comment on above: Result Comment: Not infected with HCV unless early or acute infection is suspected (which may be delayed in an immunocompromised individual), or other evidence exists to indicate HCV infection. Performed By: #### A DNA, C4, GERONIMO, CH50, C3, LOZOYA #### [facility] , Hepatitis B Core Antibodyon 06-22-2022 Hepatitis B Core Antibody Negative Normal Negative [facility] Comment on above: Result Comment: Perf ormed at: - [facility] [address] [id number] Data Administrator: Charlie Arevalo PhD, Phone: [phone] Performed By: #### A DNA, C4, GERONIMO, CH50, C3, LOZOYA #### [facility] , Hepatitis B Surface Antibody on 06-22-2022 Hepatitis B Surface Antibody Non-Reactive Normal . [facility] Comment on above: Result Comment: Non Reactive: Inconsistent with immunity, less than 10 mIU/mL Reactive: Consistent with immunity, greater than 9.9 mIU/mL Performed By: #### A DNA, C4, GERONIMO, CH50, C3, LOZOYA #### [facility] , Hepatitis B Surface Antigeno n 06-22-2022 HBsAg Screen Negative Normal Negative [facility] Comment on above: Result Comment: PERF ORMED BY: [place] [address] PATHOLOGIST BALANCE WHEEL SCREW HOLE TAPPER EULALIA OLSEN M.D. Performed By: #### A DNA, C4, GERONIMO, CH50, C3, LOZOYA #### [facility] , XR chest 2V*on 06-22-2022 XR chest 2V* [facility] [place] [address] XRay Report Signed Patient: Cielo Ray MR#: [id number] 66 : 1965 Acct:[id number] Age/Sex: 56 / F ADM Date: 06/22/22 Loc: ICXD Room: Type: [facility] Attending Dr: Esdras Bonilla MD Copies [...] Vitale Jr., D.O.06/22/2022 4:08 PM Dictation Location: [place] [address] Transcribed By: [facility] 06/22/22 1608 Dictated By: Cr Vitale Jr, DO 06/22/22 1608 Signed By: 06/22/22 1608 [facility] XR hand BI 2Von 06-22-2022 XR hand BI 2V [facility] [place] [address] [place] [address] XRay Report Signed Patient: Cielo Ray MR#: [id number] 66 : 1965 Acct:[id number] Age/Sex: 56 / F ADM Date: 06/22/22 Loc: ICXD Room: Type: [facility] Attending Dr: Esdras Bonilla MD Copies [...] Vitale Jr., D.OHong06/22/2022 4:12 PM Dictation Location: [place] [address] Transcribed By: [facility] 06/22/22 161 Dictated By: Cr Vitale Jr, DO 06/22/22 1608 Signed By: 06/22/22 1612 [facility] VC CONSULT FOLLOWUPon 2021 VC CONSULT FOLLOWUP Patient: JEAN PIERRE RAY Exam Date: 02/02/2022 : 1965 Gender:F Ordering : DR KEILA DE LA FUENTE M.D. Admission #: [id number] Family : Order #: [id number] CLICK HERE TO VIEW EXAM RADIOLOGY REPORT [...] Perla M.D. on 02/02/2022 at 15:55 Normal [facility] VC EXT VENOUS LT LIMITEDon 1 04-05-2021 VC EXT VENOUS LT LIMITED Patient: CIELO RAY Exam Date: 02/02/2022 : 1965 Gender:F Ordering : DR KEILA DE LA FUENTE M.D. Admission #: [id number] Family : Order #: [id number] CLICK HERE TO VIEW EXAM RADIOLOGY REPORT [...] Perla M.D. on 02/02/2022 at 15:51 Normal [facility] VC ENDOVENOUS ABL 1ST V LTon 01-26-2022 VC ENDOVENOUS ABL 1ST V LT Patient: CIELO RAY Exam Date: 01/26/2022 : 1965 Gender:F Ordering : DR KEILA DE LA FUENTE M.D. Admission #: [id number] Family : Order #: [id number] CLICK HERE TO VIEW EXAM RADIOLOGY REPORT [...] MD on 01/26/2022 at 16:08 Normal [facility] ALBUMINon 01-14-2022 Albumin [Mass/Vol] 3.6 g/dL Normal 3.4-5.0 [facility] Comment on above: Performed By: #### C JENELLE, ALB, ALT, CRP ####[facility] [id number] [place] [address]Dr. Wilbert Gomez CBC AUTO DIFFon 01-14-2022 BASO # 0.0 103/ul Normal 0.0-0.1 [facility] Comment on above: Performed By: #### C BC #### [facility] [address] [place] [address] Dr. Wilbert Gomez Basophils/100 WBC (Bld) 0.5 % Normal 0.2-2.0 [facility] Comment on above: Performed By: #### C BC #### [facility] [address] [place] [address] [address] Wilbert Gomez EO # 0.3 103/ul Normal 0.0-0.7 [facility] Comment on above: Performed By: #### C BC #### [facility] [address] [place] [address] [address] Wilbert Gomez Eosinophils/100 WBC (Bld) 4.2 % Normal 0.9-7.0 [facility] Comment on above: Performed By: #### C BC #### [facility] [address] [place] [address] [address] Wilbert Gomez Erythrocyte distribution width (RBC) [Ratio] 13.6 % Normal 11.0-15.0 [facility] Comment on above: Performed By: #### C BC #### [facility] [address] [place] [address] Dr. Wilbert Gomez Hematocrit (Bld) [Volume fraction] 36.8 % Normal 36.0-48.0 [facility] Comment on above: Performed By: #### C BC #### [facility] [address] [place] [address] Dr. Wilbert Gomez Hemoglobin (Bld) [Mass/Vol] 12.1 g/dL Normal 12.0-16.0 [facility] Comment on above: Performed By: #### C BC #### [facility] [address] [place] [address] Dr. Wilbert Gomez IG # 0.02 10e3/ul Normal 0.00-0.03 [facility] Comment on above: Performed By: #### C BC #### [facility] [address] [place] [address] Dr. Wilbert Gomez IG % 0.3 % Normal 0.0-0.5 [facility] Comment on above: Performed By: #### C BC #### [facility] [address] [place] [address] Dr. Wilbert Gomez LYMPH # 2.6 103/ul Normal 1.2-3.8 [facility] Comment on above: Performed By: #### C BC #### [facility] [address] [place] [address] Dr. Wilbert Gomez Lymphocytes/100 WBC (Bld) 35.7 % Normal 20.5-60.0 [facility] Comment on above: Performed By: #### C BC #### [facility] [address] [place] [address] Dr. Wilbert Gomez MANUAL DIFF REQ NO Normal [facility] Comment on above: Performed By: #### C BC #### [facility] [address] [place] [address] Dr. Wilbert Gomez MCH (RBC) [Entitic mass] 31.7 pg Normal 26.7-34.0 [facility] Comment on above: Performed By: #### C BC #### [facility] [address] [place] [address] Dr. Wilbert Gomez MCHC (RBC) [Mass/Vol] 32.9 g/dL Normal 29.9-35.2 [facility] Comment on above: Performed By: #### C BC #### [facility] [address] [place] [address] Dr. Wilbert Gomez MCV (RBC) [Entitic vol] 96.3 fL Normal 81.0-99.0 [facility] Comment on above: Performed By: #### C BC #### [facility] [address] [place] [address] Dr. Wilbert Gomez MONO # 0.5 103/ul Normal 0.3-0.8 [facility] Comment on above: Performed By: #### C BC #### [facility] [address] [place] [address] Dr. Wilbert Gomez Monocytes/100 WBC (Bld) 6.2 % Normal 1.7-12.0 [facility] Comment on above: Performed By: #### C BC #### [facility] [address] [place] [address] Dr. Wilbert Gomez NEUT # 3.9 103/ul Normal 1.4-6.5 [facility] Comment on above: Performed By: #### C BC #### [facility] [address] [place] [address] Dr. iWlbert Gomez Neutrophils/100 WBC (Bld) 53.1 % Normal 43.0-75.0 [facility] Comment on above: Performed By: #### C BC #### [facility] [address] [place] [address] Dr. Wilbert Gomez Platelet mean volume (Bld) [Entitic vol] 8.9 fL Critically low 9.5-13.5 [facility] Comment on above: Performed By: #### C BC #### [facility] [address] [address] [address] Wilbert Gomez PLT 275 103/ul Normal 150-450 [facility] Comment on above: Performed By: #### C BC #### [facility] [address] [address] [address] Wilbert Gomez RBC 3.82 106/ul Critically low 4.20-5.40 [facility] Comment on above: Performed By: #### C BC #### [facility] [address] [address] [address] Wilbert Gomez WBC 7.3 103/ul Normal 4.0-11.0 [facility] Comment on above: Performed By: #### C BC #### [facility] [address] [address] [address] Wilbert Gomez CREATININEon 01-14-2022 Creatinine [Mass/Vol] 0.79 mg/dL Normal 0.55-1.02 [facility] Comment on above: Performed By: #### C JENELLE, ALB, ALT, CRP ####[facility] [address] [address]Dr. Wilbert Gomez EGFR-AF IVORIAN >60 Normal >=60 [facility] Comment on above: Performed By: #### C JENELLE, ALB, ALT, CRP ####[facility] [address] [id number]. Wilbert Gomez EGFR-NON AF IVORIAN >60 Normal >=60 [facility] Comment on above: Performed By: #### C JENELLE, ALB, ALT, CRP ####[facility] [address] [id number] Gomez CRPon 01-14-2022 CRP 1.1 mg/dL Critically high <=1.0 [facility] Comment on above: Performed By: #### C JENELLE, ALB, ALT, CRP ####[facility] [address] [address]DrHong Gomez SED RATE WESTERGRENon 2021 SED RATE 37 mm/hr Critically high <=30 [facility] Comment on above: Performed By: #### C BC #### [facility] [address] [place], [place] [address] Dr. Wilbert Gomez [facility] 01-14-2022 ALT [Catalytic activity/Vol] 30 U/L Normal 14-59 [facility] Comment on above: Performed By: #### C JENELLE, ALB, ALT, CRP ####[facility] [address] [place], [place] [address]BnDr. Wilbert Gomez VC CONSULT FOLLOWUPon 2021 VC CONSULT FOLLOWUP Patient: JEAN PIERRE RAY Exam Date: 12/29/2021 : 1965 Gender:F Ordering : DR KEILA DE LA FUENTE M.D. Admission #: [id number] Family : Order #: [id number] CLICK HERE TO VIEW EXAM RADIOLOGY REPORT [...] MD on 12/29/2021 at 15:41 Normal [facility] VC EXT VENOUS LT LIMITEDon 1 1-15-2022 VC EXT VENOUS LT LIMITED Patient: CIELO RAY Exam Date: 12/29/2021 : 1965 Gender:F Ordering : DR KEILA DE LA FUENTE M.D. Admission #: [id number] Family : Order #: [id number] CLICK HERE TO VIEW EXAM RADIOLOGY REPORT [...] Fuente MD on 12/29/2021 at 15:34 Normal [facility] VC ENDOVENOUS ABL 1ST V LTon 12-22-2021 VC ENDOVENOUS ABL 1ST V LT Patient: CIELO RAY Exam Date: 12/22/2021 : 1965 Gender:F Ordering : DR KEILA DE LA FUENTE M.D. Admission #: [id number] Family : Order #: [id number] CLICK HERE TO VIEW EXAM RADIOLOGY REPORT [...] the left great saphenous vein. Dictated by: Keial De La Fuente MD on 12/22/2021 at 16:07 Approved by: Keila De La Fuente MD on 12/22/2021 at 16:10 Normal [facility] VC COMP CONSULTATIONon 11-30 VC COMP CONSULTATION Patient: KARINA RAY Exam Date: 11/30/2021 : 1965 Gender:F Ordering : DR KEILA DE LA FUENTE M.D. Admission #: [id number] Family : Order #: [id number] CLICK HERE TO VIEW EXAM RADIOLOGY REPORT [...] great saphenous and small saphenous veins. Bilateral slate splitter veins and incompetent branch saphenous varicosities. PHYSICAL [...] arterial disease 5. CEAP: C2, EC, AP, [place] PLAN: 1. Continued use of compression stockings 2. Elevated legs and increased physical activity symptomatic relief 3. Endovenous laser ablation of left great saphenous left small saphenous veins, left and right slate splitter veins. 4. Microfoam chemical ablation of dilated, incompetent branch saphenous varicosities within right and left lower extremities Nurse notes, history and physical were reviewed and confirmed, see attached forms. The nurse was present throughout the physical exam and consultation Dictated by: Hayden Perla M.D. on 12/01/2021 at 08:06 Approved by: Hayden Perla M.D. on 12/01/2021 at 09:12 Normal [facility] VC VENOUS REFLUX MICHELLE LMTon 1 VC VENOUS REFLUX MICHELLE LMT Patient: CIELO RAY Exam Date: 11/30/2021 : 1965 Gender:F Ordering : DR KEILA DE LA FUENTE M.D. Admission #: [id number] Family : Order #: [id number] CLICK HERE TO VIEW EXAM RADIOLOGY REPORT [...] treated GSV. Incomptent varicose vein associated with slate splitter distal thigh measures 6.2 mm with 2.6s [...] thrombus. Compressibility: Normal. Flow: Deep venous reflux. Tie Presser: Two medial/distal lower leg perfs measures 3.9 [...] and small saphenous veins. 2. Dilated, incompetent slate splitter veins and branch saphenous varicosities bilaterally. 3. Consultation for endovenous ablation is recommended. Dictated by: Hayden Perla M.D. on 11/30/2021 at 15:51 Approved by: Hayden Perla M.D. on 11/30/2021 at 15:53 Normal [facility] INSULINon 10-09-2021 Insulin 11.9 uIU/mL Normal 2.6-24.9 [facility] Comment on above: Performed By: #### I NSULIN ####[facility] [address] [address]Dr. Wilbert Gomez T4, T3U, FTI LABCORPon 10-09 Free Thyroxine Index 2.1 Normal 1.2-4.9 [facility] Comment on above: Performed By: #### T HYLC ####[facility] [address] [address]Dr. Justinegonzalo Gomez T3 Uptake 29 % Normal 24-39 [facility] Comment on above: Performed By: #### T HYLC ####[facility] [address] [address]Dr. Wilbert Gomez T4 [Mass/Vol] 7.4 ug/dL Normal 4.5-12.0 [facility] Comment on above: Performed By: #### T HYLC ####[facility] [address] [id number]. Wilbert Gomez GLYCOHEMOGLOBIN A1Con 2021 ADA RECOMMENDATION SEE BELOW Normal [facility] Comment on above: Result Comment: ADA RECOMMENDED LIMIT 4.0 - 6.0 ADA THERAPEUTIC TARGET < 7.0 ACTION SUGGESTED > 7.0 Performed By: #### A 1C ####[facility] [address] [address]Dr. Justinegonzalo Gomez Glucose [Mass/Vol] 111 mg/dL Normal [facility] Comment on above: Performed By: #### A 1C ####[facility] [address] [address]Dr. Justinegonzalo Gomez HbA1c (Bld) [Mass fraction] 5.5 % Normal 4.5-6.2 [facility] Comment on above: Performed By: #### A 1C ####[facility] [address] [place], [place] [address]LgHong Gomez IRONon 10-08-2021 Iron [Mass/Vol] 67.0 ug/dL Normal 50.0-170.0 [facility] Comment on above: Performed By: #### I SOLA #### [facility] [address] [place], [place] [address] Dr. Wilbert Gomez LIPID PROFILEon 10-08-2021 CHOL-HDL RATIO NORM SEE BELOW Normal [facility] Comment on above: Result Comment: 3.3 - 4.4 LOW RISK 4.4 - 7.1 AVERAGE RISK 7.1 - 11.0 MODERATE RISK >11.0 HIGH RISK Performed By: #### L IPID, TSH, CMP ####[facility] [address] [place], [place] [address]Bz. Wilbert Gomez Cholesterol [Mass/Vol] 205 mg/dL Critically high <=200 [facility] Comment on above: Performed By: #### L IPID, TSH, CMP ####[facility] [address] [place] [id number]. Wilbert Gomez Cholesterol in HDL [Mass/Vol] 81 mg/dL Critically high 40-60 [facility] Comment on above: Performed By: #### L IPID, TSH, CMP ####[facility] [address] [place], [place] [address]Dm. Wilbert Gomez Cholesterol in LDL [Mass/Vol] 108.0 mg/dL Normal [facility] Comment on above: Performed By: #### L IPID, TSH, CMP ####[facility] [address] [place], [place] [address]Hd. Wilbert Gomez Cholesterol.total/Ch olesterol in HDL [Mass ratio] 2.5 {ratio} Normal [facility] Comment on above: Performed By: #### L IPID, TSH, CMP ####[facility] [address] [place], [place] [address]Ks. Wilbert Gomez HDL NORMAL > or = 60 mg/dl - LO W CARDIOVASCULAR RISK <40 mg/dl - HIGH CARDIOVASCULAR RISK Normal [facility] Comment on above: Performed By: #### L IPID, TSH, CMP ####[facility] [address] [address]Dr. Wilbert Gomez LDL CALC NORMAL SEE BELOW Normal [facility] Comment on above: Result Comment: <100 mg/dl OPTIMAL 100 - 129 mg/dl NEAR OR ABOVE OPTIMAL 130 - 159 mg/dl BORDERLINE HIGH 160 - 189 mg/dl HIGH >190 mg/dl VERY HIGH Performed By: #### L IPID, TSH, CMP ####[facility] [address] [address]Dr. Wilbert Gomez Triglyceride [Mass/Vol] 80 mg/dL Normal <=150 [facility] Comment on above: Performed By: #### L IPID, TSH, CMP ####[facility] [address] [address]Dr. Wilbert Gomez VLDL CALC 16.0 mg/dL Normal [facility] Comment on above: Performed By: #### L IPID, TSH, CMP ####[facility] [address] [address]Dr. Wilbert Gomez PROF 14(COMP METB)on 022 Albumin [Mass/Vol] 3.6 g/dL Normal 3.4-5.0 [facility] Comment on above: Performed By: #### L IPID, TSH, CMP ####[facility] [address] [address]Dr. Wilbert Gomez Albumin/Globulin [Mass ratio] 1.0 {ratio} Normal [facility] Comment on above: Performed By: #### L IPID, TSH, CMP ####[facility] [address] [address]Dr. Wilbert Gomez ALP [Catalytic activity/Vol] 86 U/L Normal 46-116 [facility] Comment on above: Performed By: #### L IPID, TSH, CMP ####[facility] [address] [address]Dr. Wilbert Gomez ALT [Catalytic activity/Vol] 27 U/L Normal 14-59 [facility] Comment on above: Performed By: #### L IPID, TSH, CMP ####[facility] [address] [address]Dr. Wilbert Gomez Anion gap [Moles/Vol] 12.1 mmol/L Normal [facility] Comment on above: Performed By: #### L IPID, TSH, CMP ####[facility] [address] [address]Dr. Wilbert Gomez AST [Catalytic activity/Vol] 23 U/L Normal 15-37 [facility] Comment on above: Performed By: #### L IPID, TSH, CMP ####[facility] [address] [address]Dr. Wilbert Gomez Bilirubin [Mass/Vol] 0.6 mg/dL Normal 0.2-1.0 [facility] Comment on above: Performed By: #### L IPID, TSH, CMP ####[facility] [address] [place], [place] [address]Dr. Wilbert Gomez Calcium [Mass/Vol] 8.7 mg/dL Normal 8.5-10.1 [facility] Comment on above: Performed By: #### L IPID, TSH, CMP ####[facility] [address] [place], [place] [address]Dr. Wilbert Gomez Chloride [Moles/Vol] 104 mmol/L Normal 98-107 [facility] Comment on above: Performed By: #### L IPID, TSH, CMP ####[facility] [address] [address]Dr. Wilbert Gomez CO2 [Moles/Vol] 26.8 mmol/L Normal 21.0-32.0 [facility] Comment on above: Performed By: #### L IPID, TSH, CMP ####[facility] [address] [place], [place] [address]Dr. Wilbert Gomez Creatinine [Mass/Vol] 0.85 mg/dL Normal 0.55-1.02 [facility] Comment on above: Performed By: #### L IPID, TSH, CMP ####[facility] [address] [place], [place] [address]Dr. Wilbert Gomez EGFR-AF IVORIAN >60 Normal >=60 [facility] Comment on above: Performed By: #### L IPID, TSH, CMP ####[facility] [address] [address]Dr. Wilbert Gomez EGFR-NON AF IVORIAN >60 Normal >=60 [facility] Comment on above: Performed By: #### L IPID, TSH, CMP ####[facility] [address] [address]Dr. Wilbert Gomez Globulin (S) [Mass/Vol] 3.7 g/dL Normal [facility] Comment on above: Performed By: #### L IPID, TSH, CMP ####[facility] [address] [address]Dr. Wilbert Gomez Glucose [Mass/Vol] 92 mg/dL Normal 74-[address] [facility] Comment on above: Performed By: #### L IPID, TSH, CMP ####[facility] [address] [address]Dr. Wilbert Gomez Potassium [Moles/Vol] 3.9 mmol/L Normal 3.5-5.1 [facility] Comment on above: Performed By: #### L IPID, TSH, CMP ####[facility] [address] [address]Dr. Wilbert Gomez Protein [Mass/Vol] 7.3 g/dL Normal 6.4-8.[address] [facility] Comment on above: Performed By: #### L IPID, TSH, CMP ####[facility] [address] [address]Dr. Wilbert Gomez Sodium [Moles/Vol] 139 mmol/L Normal 136-[address] [facility] Comment on above: Performed By: #### L IPID, TSH, CMP ####[facility] [address] [address]Dr. Wilbert Gomez Urea nitrogen [Mass/Vol] 10.0 mg/dL Normal 7.0-18.0 [facility] Comment on above: Performed By: #### L IPID, TSH, CMP ####[facility] [address] [place] [id number] Gomez Urea nitrogen/Creatinine [Mass ratio] 11.8 mg/mg Normal [facility] Comment on above: Performed By: #### L IPID, TSH, CMP ####[facility] [address] [address]Dr. Wilbert Gomez TSHon 10-08-2021 TSH 0.731 uIU/mL Normal 0.358-3.740 [facility] Comment on above: Performed By: #### L IPID, TSH, CMP ####[facility] [address] [place] [address]DrHong Gomez ALBUMINon 07-30-2021 Albumin [Mass/Vol] 3.8 g/dL Normal 3.4-5.0 [facility] Comment on above: Performed By: #### C JENELLE, ALT, CRP, ALB #### [facility] [address] [place] [address] Dr. Wilbert Gomez CBC AUTO DIFFon 07-30-2021 BASO # 0.0 103/ul Normal 0.0-0.1 [facility] Comment on above: Performed By: #### C BC #### [facility] [address] [place] [address] Dr. Wilbert Gomez Basophils/100 WBC (Bld) 0.6 % Normal 0.2-2.0 [facility] Comment on above: Performed By: #### C BC #### [facility] [address] [place] [address] Dr. Wilbert Gomez EO # 0.2 103/ul Normal 0.0-0.7 [facility] Comment on above: Performed By: #### C BC #### [facility] [address] [place] [address] Dr. Wlibert Gomez Eosinophils/100 WBC (Bld) 4.1 % Normal 0.9-7.0 [facility] Comment on above: Performed By: #### C BC #### [facility] [address] [place] [address] Dr. Wilbert Gomez Erythrocyte distribution width (RBC) [Ratio] 14.0 % Normal 11.0-15.0 [facility] Comment on above: Performed By: #### C BC #### [facility] [address] [place] [address] Dr. Wilbert Gomez Hematocrit (Bld) [Volume fraction] 37.4 % Normal 36.0-48.0 [facility] Comment on above: Performed By: #### C BC #### [facility] [address] [place] [address] Dr. Wilbert Gomez Hemoglobin (Bld) [Mass/Vol] 12.2 g/dL Normal 12.0-16.0 [facility] Comment on above: Performed By: #### C BC #### [facility] [address] [place] [address] Dr. Wilbert Gomez IG # 0.01 10e3/ul Normal 0.00-0.03 [facility] Comment on above: Performed By: #### C BC #### [facility] [address] [place] [address] Dr. Wilbert Gomez IG % 0.2 % Normal 0.0-0.5 [facility] Comment on above: Performed By: #### C BC #### [facility] [address] [place] [address] Dr. Wilbert Gomez LYMPH # 1.6 103/ul Normal 1.2-3.8 [facility] Comment on above: Performed By: #### C BC #### [facility] [address] [place] [address] Dr. Wilbert Gomez Lymphocytes/100 WBC (Bld) 33.4 % Normal 20.5-60.0 [facility] Comment on above: Performed By: #### C BC #### [facility] [address] [place] [address] Dr. Wilbert Gomez MANUAL DIFF REQ NO Normal [facility] Comment on above: Performed By: #### C BC #### [facility] [address] [place] [address] Dr. Wilbert Gomez MCH (RBC) [Entitic mass] 31.9 pg Normal 26.7-34.0 [facility] Comment on above: Performed By: #### C BC #### [facility] [address] [place] [address] Dr. Wilbert Gomez MCHC (RBC) [Mass/Vol] 32.6 g/dL Normal 29.9-35.2 [facility] Comment on above: Performed By: #### C BC #### [facility] [address] [place] [address] Dr. Wilbert Gomez MCV (RBC) [Entitic vol] 97.7 fL Normal 81.0-99.0 [facility] Comment on above: Performed By: #### C BC #### [facility] [address] [place] [address] Dr. Wilbert Gomez MONO # 0.5 103/ul Normal 0.3-0.8 [facility] Comment on above: Performed By: #### C BC #### [facility] [address] [place] [address] Dr. Wilbert Gomez Monocytes/100 WBC (Bld) 11.0 % Normal 1.7-12.0 [facility] Comment on above: Performed By: #### C BC #### [facility] [address] [place] [address] Dr. Wilbert Gomez NEUT # 2.4 103/ul Normal 1.4-6.5 [facility] Comment on above: Performed By: #### C BC #### [facility] [address] [place] [address] Dr. Wilbert Gomez Neutrophils/100 WBC (Bld) 50.7 % Normal 43.0-75.0 [facility] Comment on above: Performed By: #### C BC #### [facility] [address] [place] [address] Dr. Wilbert Gomez Platelet mean volume (Bld) [Entitic vol] 8.8 fL Critically low 9.5-13.5 [facility] Comment on above: Performed By: #### C BC #### [facility] [address] [place] [address] Dr. Wilbert Gomez PLT 228 103/ul Normal 150-450 [facility] Comment on above: Performed By: #### C BC #### [facility] [address] [address] [address] Wilbert Gomez RBC 3.83 106/ul Critically low 4.20-5.40 [facility] Comment on above: Performed By: #### C BC #### [facility] [address] [place] [address] Dr. Wilbert Gomez WBC 4.8 103/ul Normal 4.0-11.0 [facility] Comment on above: Performed By: #### C BC #### [facility] [address] [place] [address] Dr. Wilbert Gomez CREATININEon 07-30-2021 Creatinine [Mass/Vol] 0.87 mg/dL Normal 0.55-1.02 [facility] Comment on above: Performed By: #### C JENELLE, ALT, CRP, ALB #### [facility] [address] [place] [address] Dr. Wilbert Gomez EGFR-AF IVORIAN >60 Normal >=60 [facility] Comment on above: Performed By: #### C JENELLE, ALT, CRP, ALB #### [facility] [address] [place] [address] Dr. Wilbert Gomez EGFR-NON AF IVORIAN >60 Normal >=60 [facility] Comment on above: Performed By: #### C JENELLE, ALT, CRP, ALB #### [facility] [address] [place] [address] Dr. Wilbert Gomez CRPon 07-30-2021 CRP 1.5 mg/dL Critically high <=1.0 [facility] Comment on above: Performed By: #### C JENELLE, ALT, CRP, ALB #### [facility] [address] [place] [address] Dr. Wilbert Gomez SED RATE SCHENECTADYERGREN 2021 SED RATE 14 mm/hr Normal <=30 [facility] Comment on above: Performed By: #### S EDR #### [facility] [address] [place] [address] Dr. Wilbert Gomez [facility] 07-30-2021 ALT [Catalytic activity/Vol] 38 U/L Normal 14-59 [facility] Comment on above: Performed By: #### C JENELLE, ALT, CRP, ALB #### [facility] [address] [address] [address] Wilbert Gomez MG MAMM SCREEN 3D MICHELLE CADon 07-16-2021 MG MAMM SCREEN 3D MICHELLE CAD Patient: CIELO RAY Exam Date: 07/16/2021 : 1965 Gender:F Ordering : [facility] Admission #: [id number] Family : Order #: [id number] CLICK HERE TO VIEW EXAM RADIOLOGY REPORT [...] breast cancer at age 55. LOCATION: [facility] BREAST COMPOSITION: Heterogeneously dense,which may obscure [...] M.D. on 07/17/2021 at 09:49 Normal [facility] Vital Signs Date Time Vital Sign Value Performing Clinician Matias bell 04-17-2024 13:53-0500 Body height 167.6 cm Karolina GARG Work Phone: [facility] 04-17-2024 13:53-0500 Body mass index (BMI) [Ratio] 29.38 kg/m2 Karolina Dolce DPM FACFAS Work Phone: [facility] 04-17-2024 13:53-0500 Body weight 82.56 kg Karolina Dolce DPM FACFAS Work Phone: [facility] 04-17-2024 13:53-0500 Diastolic blood pressure 75 mm[Hg] Karolina Dolce DPM FACFAS Work Phone: [facility] 04-17-2024 13:53-0500 Heart rate 82 /min Karolina Dolce DPM FACFAS Work Phone: [facility] 04-17-2024 13:53-0500 Systolic blood pressure 129 mm[Hg] Karolina Dolce DPM FACFAS Work Phone: [facility] 03-27-2024 14:22-0500 Body height 167.6 cm Karolina Dolce DPM FACFAS Work Phone: [facility] 03-27-2024 14:22-0500 Body mass index (BMI) [Ratio] 29.38 kg/m2 Karolina Dolce DPM FACFAS Work Phone: [facility] 03-27-2024 14:22-0500 Body weight 82.56 kg Karolina Dolce DPM FACFAS Work Phone: [facility] 03-27-2024 14:22-0500 Diastolic blood pressure 77 mm[Hg] Karolina Dolce DPM FACFAS Work Phone: [facility] 03-27-2024 14:22-0500 Heart rate 80 /min Karolina Dolce DPM FACFAS Work Phone: [facility] 03-27-2024 14:22-0500 Systolic blood pressure 128 mm[Hg] Karolina Dolce DPM FACFAS Work Phone: [facility] 03-20-2024 13:41-0500 Body height 167.6 cm Karolina Dolce DPM FACFAS Work Phone: [facility] 03-20-2024 13:41-0500 Body mass index (BMI) [Ratio] 29.38 kg/m2 Karolina Dolce DPM FACFAS Work Phone: [facility] 03-20-2024 13:41-0500 Body weight 82.56 kg Karolina Dolce DPM FACFAS Work Phone: [facility] 03-20-2024 13:41-0500 Diastolic blood pressure 75 mm[Hg] Karolina Dolce DPM FACFAS Work Phone: [facility] 03-20-2024 13:41-0500 Heart rate 82 /min Karolina Dolce DPM FACFAS Work Phone: [facility] 03-20-2024 13:41-0500 Systolic blood pressure 129 mm[Hg] Karolina Dolce DPM FACFAS Work Phone: [facility] 02-23-2024 15:43-0500 Body height 167.6 cm Karolina Dolce DPM FACFAS Work Phone: [facility] 02-23-2024 15:43-0500 Body mass index (BMI) [Ratio] 29.38 kg/m2 Karolina Dolce DPM FACFAS Work Phone: [facility] 02-23-2024 15:43-0500 Body weight 82.56 kg Karolina Dolce DPM FACFAS Work Phone: [facility] 02-23-2024 15:43-0500 Diastolic blood pressure 76 mm[Hg] Karolina Dolce DPM FACFAS Work Phone: [facility] 02-23-2024 15:43-0500 Heart rate 85 /min Karolina Dolce DPM FACFAS Work Phone: [facility] 02-23-2024 15:43-0500 Systolic blood pressure 128 mm[Hg] Karolina Dolce DPM FACFAS Work Phone: [facility] 01-26-2024 16:45-0500 Body height 167.6 cm Karolina Dolce DPM FACFAS Work Phone: [facility] 01-26-2024 16:45-0500 Body mass index (BMI) [Ratio] 29.38 kg/m2 Karolina Dolce DPM FACFAS Work Phone: [facility] 01-26-2024 16:45-0500 Body weight 82.56 kg Karolina Dolce DPM FACFAS Work Phone: [facility] 01-26-2024 16:45-0500 Diastolic blood pressure 75 mm[Hg] Karolina Dolce DPM FACFAS Work Phone: [facility] 01-26-2024 16:45-0500 Heart rate 82 /min Karolina Dolce DPM FACFAS Work Phone: [facility] 01-26-2024 16:45-0500 Systolic blood pressure 130 mm[Hg] Karolina Dolce DPM FACFAS Work Phone: [facility] 10-27-2023 15:33-0400 Body height 167.6 cm Karolina Dolce DPM FACFAS Work Phone: [facility] 10-27-2023 15:33-0400 Body mass index (BMI) [Ratio] 29.38 kg/m2 Karolina Dolce DPM FACFAS Work Phone: [facility] 10-27-2023 15:33-0400 Body weight 82.56 kg Karolina Dolce DPM FACFAS Work Phone: [facility] 10-27-2023 15:33-0400 Diastolic blood pressure 74 mm[Hg] Karolina Dolce DPM FACFAS Work Phone: [facility] 10-27-2023 15:33-0400 Heart rate 80 /min Karolina Dolce DPM FACFAS Work Phone: [facility] 10-27-2023 15:33-0400 Systolic blood pressure 132 mm[Hg] Karolina Dolce DPM FACFAS Work Phone: [facility] Encounters Encounter Date Encounter Type Care [...] 03-15-2024 End: 03-15-2024 ambulatory Karolina R Dolce Facility:[facility] Start: 03-15-2024 End: 03-15-2024 Lab Drop off Karolina R Dolce Alejandro Vergara [facility] Start: 03-14-2024 End: 03-14-2024 Refill Karolina [...] 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/HCC) Start: 10-27-2023 End: 10-27-2023 ambulatory KAROLINA R [...] Start: 06-22-2022 End: 06-22-2022 ambulatory Esdras Bonilla Facility:[facility] Start: 06-02-2022 ambulatory TERESA SANTINO Facility: [...] medical examination without abnormal findings TERESA DE [facility] Start: 10-08-2021 End: 10-09-2021 ambulatory TERESA [...] EST Office Visit [facility] [address] [facility] [place] [phone] Karolina Bryson R, DPM FACFAS [address] [place] [address] [facility] Start: 03-27-2024 End: 03-27-2024 Patient encounter procedure [facility] Comment on above: Arrived Start: 03-20-2024 End: 03-20-2024 Patient encounter procedure [facility] Comment on above: Arrived Start: 02-23-2024 End: 02-23-2024 Patient encounter procedure 02/23/2024 3:40 PM EST Office Visit [facility] [address] [facility] [place] [phone] Jesus Brysonm R, DPM FACFAS [address] [place] [address] Arrived [facility] Comment on above: Arrived Start: 01-26-2024 End: 01-26-2024 Patient encounter procedure 01/26/2024 4:50 PM EST Office Visit [facility] [address] [place] [phone] Jesus Brysonm R, DPM FACFAS [address] [place] [address] Arrived [facility] Comment on above: Arrived Start: 10-27-2023 End: 10-27-2023 Patient encounter procedure 10/27/2023 3:30 PM EDT Office Visit [facility] [address] [place] [phone] Karolina Bryson, DPM FACFAS [address] [facility] [place] [address] Arrived [facility] Comment on above: Arrived Start: 10-16-2023 Influenza vaccination Influenza Vacc ine (#1) [facility] Start: 2005 Screening for malign ant neoplasm of breast Mammogram [facility] Start: 11-13-1995 Screening for malign ant neoplasm of cervix [facility] Start: 1986 Screening for malign ant neoplasm of cervix Pap Smear [facility] Start: 1965 Screening for malign ant neoplasm of colon [facility] Payers Date Payer Category Payer Blue Cross Blue Shield [id number] 2023 Unknown BCBS BCBS xxxxxx [id number] 2023-Present [phone] [address] [place] [address] [id number] 2023 Unknown [id number] 2022 Self-pay 1965 Unknown [id number] 2.16.840.1.100205.3.579.2. 593 1965 Unknown [id number] 2.16.840.1.606654.3.579.2. 593 1965 Unknown [id number] 2.16.840.1.316540.3.579.2. 593 1965 Unknown [id number] 2.16.840.1.458846.3.579.2. 593 1965 Unknown [id number] 2.16.840.1.144152.3.579.2. 593 1965 Unknown [id number] 2.16.840.1.057869.3.579.2. 593 1965 Unknown [id number] 2.16.840.1.703706.3.579.2. 593 1965 Unknown [id number] 2.16.840.1.017730.3.579.2. 593 1965 Unknown [id number] 2.16.840.1.766136.3.579.2. 593 1965 Unknown [id number] 2.16.840.1.809964.3.579.2. 593 1965 Unknown [id number] 2.16.840.1.912077.3.579.2. 727 1965 Unknown [id number] 2.16.840.1.621203.3.579.2. 125 1965 Unknown [id number] 2.16.840.1.767330.3.579.2. 1258 1965 Unknown [id number] 2.16.840.1.665974.3.579.2. 125 1965 Unknown [id number] 2.16.840.1.181118.3.579.2. 125 1965 Unknown [id number] 2.16.840.1.173475.3.579.2. 125 1965 Unknown [id number] 2.16.840.1.830329.3.579.2. 1258 1965 Unknown [id number] 2.16.840.1.332432.3.579.2. 1258 1965 Unknown [id number] 2.16.840.1.559028.3.579.2. 1258 1965 Unknown [id number] 2.16.840.1.312800.3.579.2. 1259 1965 Unknown [id number] 2.16.840.1.170781.3.579.2. 1259 1965 Unknown [id number] 2.16.840.1.438901.3.579.2. 1259 1959 Unknown [id number] Unknown [id number] 2.16.840.1.010482.3.579.2. 531 Social History Date Type Detail Facility Tobacco smoking status [facility] Start: 09-13-2023 End: 04-17-2024 Sex Assigned At Female [facility] Start: 07-05-2023 Tobacco smoking stat [facility] Never smoked tobacco [facility] Work [...] < 3 seconds Digits 1-5 bilateral NEURO: Trent Scott 5.07 monofilament was intact B/L. Vibratory [...] p.r.n. RADHA Morales documented in this encounter [facility] 03-27-2024 History of Presen t illness Narrative [...] < 3 seconds Digits 1-5 bilateral NEURO: Trent Scott 5.07 monofilament was intact B/L. Vibratory [...] shoe RADHA Morales documented in this encounter [facility] 03-20-2024 History of Presen t [...] < 3 seconds Digits 1-5 bilateral NEURO: Trent Scott 5.07 monofilament was intact B/L. Vibratory [...] device. RADHA Morales documented in this encounter [facility] 03-14-2024 Telephone encounter Note Post op pain meds [facility] 03-14-2024 Miscellaneous Notes Post op pain meds documented in this encounter [facility] 02-23-2024 History of Presen t [...] < 3 seconds Digits 1-5 bilateral NEURO: Trent Scott 5.07 monofilament was intact B/L. Vibratory [...] february RADHA Morales documented in this encounter [facility] 01-26-2024 History of Presen t [...] < 3 seconds Digits 1-5 bilateral NEURO: Trent Scott 5.07 monofilament was intact B/L. Vibratory [...] tissue. 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/HCC) PLAN Discussed in great detail the MRI findings patient is progressing well since her last injection she does not want to have any surgery at this time. Did briefly discuss neuroma resection. She will follow up as needed she is to continue with good structured shoes. RADHA Morales documented in this encounter [facility] Evaluation + Plan note No data available for this section [facility] Evaluation note Diagnosis Arciniega neuroma, right- Primary Metatarsal deformity, right 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) (CMS/HCC) documented in this encounter [facility]* Diagnosis Metatarsal deformity, right- Primary Arciniega neuroma, right Right foot pain Pain in soft tissues of limb documented in this encounter [facility]* Diagnosis Arciniega neuroma, right- Primary Metatarsal deformity, right documented in this encounter [facility]* Diagnosis Metatarsal deformity, right- Primary documented in this encounter [facility]* Diagnosis Arciniega neuroma, right- Primary Metatarsal deformity, right documented in this encounter [facility]* Diagnosis Arciniega neuroma, right- Primary Metatarsal deformity, right documented in this encounter [facility] Discharge instructions No data available [...] section and content) DATE CREATED AUTHOR 06/03/2022 [facility] DATE CREATED AUTHOR AUTHOR'S ORGANIZ ATION 06/26/2022 [facility] DATE CREATED AUTHOR AUTHOR'S ORGANIZ ATION 03/17/2024 [facility] DATE CREATED AUTHOR AUTHOR'S ORGANIZ ATION 03/25/2024 [facility] DATE CREATED AUTHOR AUTHOR'S ORGANIZ ATION 04/19/2024 [facility] EPIC Patient Care team informatio n (unrecognized section and content) Waredresser Relationship Specialty Start Date End Date Paul Villatoro MD [address] [place] [phone] PCP - General Family Medicine 09/13/23 Teresa De MD [address] [place] [address] Referring Physician Family Medicine 07/05/23 Waredresser Relationship Specialty Start Date End Date Paul Villatoro MD [address] [place] [phone] PCP - General Family Medicine 09/13/23 Teresa De MD [address] [place] [phone] Referring Physician Family Medicine 07/05/23 Waredresser Relationship Specialty Start Date End Date Paul Villatoro MD [address] [place] [phone] PCP - General Family Medicine 09/13/23 Teresa De MD [address] [place] [phone] Referring Physician Family Medicine 07/05/23 Waredresser Relationship Specialty Start Date End Date Paul Villatoro MD [address] [place] [phone] PCP - General Family Medicine 09/13/23 Teresa De MD [address] [place] [phone] Referring Physician Family Medicine 07/05/23 Reason for [...] BE BASED ON THE PRIMARY CLINICAL RECORDS. [facility] [employer] [facility]. provides no warranty or guarantee of the accuracy or completeness of information in this document.
--- OUTSIDE RECORDS SUMMARY | 2024-08-14 07:11 | XMS_ITS | Encounter Summary ---
Author Organization [facility] Address [address] [place] [address] Care Team Providers Care Touch Up Worker Name Role Phone Teresa Portillo MD Unavailable [phone] Paul Villatoro MD Primary Care Provider [phone] Encounter Details Date Type Department Care Team (Late st Contact Info) Description 10/19/2023 Clinisync Result Encounter [facility] External Department Unsolicited Luiz Alcaraz MD [address] [place] [phone] Social History Tobacco Use Types Packs/Day Years [...] EDT Narrative 10/19/2023 12:13 PM EDT The [address] [id number] Magnetic Resonance Report Signed Patient: CIELO STEVENS MR#: [id number] : 1965 Acct:[id number] Age/Sex: 57 / F ADM Date: 10/18/23 Loc: MRI Attending Dr: Luiz Alcaraz M.D. Ordering Physician: Luiz Alcaraz M.D. Date of Service: 10/18/23 Procedure(s): MR foot RT wo con Accession Number(s): [id number] cc: TERESA PORTILLO ; Luiz Alcaraz M.D. [place] [id number] Patient Name: CIELO STEVENS MRN: [id number] date: 1965 Sex: F Assigned Patient Location: MRI Current Patient Location: Accession/Order Number: [id number] Exam Date: 10/18/2023 15:45 Report Date: 10/19/2023 [...] Signed By: 10/19/23 1213 DD/ 1211 TD/TT: Weighmaster: Procedure Note Radiology, Radiologist, - 10/19/2023 The [place] [id number] Magnetic Resonance Report Signed Patient: CIELO STEVENS EMR#: [id number] : 1965Acct:[id number] Age/Sex: 57 / FADM Date: 10/18/23 Loc: MRI Attending Dr: Luiz Alcaraz M.D. Ordering Physician: Luiz Alcaraz M.D. Date of Service: 10/18/23 Procedure(s): MR foot RT wo con Accession Number(s): [id number] cc: TERESA PORTILLO ; Luiz Alcaraz M.D. The [place] [id number] Patient Name: CIELO STEVENS MRN: [id number] date: 1965 Sex: F Assigned Patient Location: MRI Current Patient Location: Accession/Order Number: [id number] Exam Date: 10/18/2023 15:45 Report Date: 10/19/2023 [...] M.D. Signed By:10/19/23 1213 DD/ 1211 TD/TT: Weighmaster: Luiz Alcaraz MD [facility] Final Result documented in this encounter Visit Diagnoses Not on filedocumented in this encounter Care Teams Touch Up Worker Relationship Specialty Start Date End Date Paul Villatoro MD [address] [place] [address] [phone] PCP - General Family Medicine 09/13/23 Teresa Portillo MD [address] [place] [phone] Referring Physician Family Medicine 07/05/23 documented as of this encounter
--- NOTE | 2024-08-14 09:05 | P.IMPN_ITS ---
Progress Note: A&P Assessment and Plan (1) Cellulitis of left leg: (2) Left leg pain: (3) Failure of outpatient treatment: (4) Hypertension: (5) Arthritis, rheumatoid: Plan Brooke Ray is a 58 y/o F h/o hypertension, rheumatoid arthritis on leflunomide, venous insufficiency s/p distant RLE vein stripping and presumed LLE sclerotherapy, presented to [facility] with persistent LLE erythema and edema, concern for persistent cellulitis prompting admission for failure of outpatient therapy. 1. Persistent LLE cellulitis in the setting of failed outpatient therapy - DVT u/s -ve - blood cultures ordered - most recent regimen was cefdinir and doxycycline - admitted with zosyn and vancomycin - patient did state erythema started as localized spot, will check lyme serology - likely component of venous insufficency, anticipate need for combination antibiotics and diuresis, lasix 20 mg IV x1 ordered 2. h/o hypertension, rheumatoid arthritis on leflunomide, venous insufficiency s/p distant RLE vein stripping and presumed LLE sclerotherapy - continue home antihypertensives, lisinopril 10 mg daily - continue leflunomide Diet: Cardiac Lines/tubes: PIV VTE prophylaxis: sqh 5k q8h Code status: full Dispo: inpatient Internal Medicine - PN: Subj Subjective Interval history: Admitted overnight for cellulitis from failed outpatient therapy, feels improved today does have persistent LLE edema Exam Narrative Exam Narrative: Gen.: Awake, alert, in no distress Head: Normocephalic, atraumatic ENT: Moist mucous membranes Respiratory: No respiratory distress, lungs clear bilaterally Cardio: Regular rate and rhythm Gastrointestinal: Abdomen is soft, nondistended and nontender to palpation Psych: Normal mood and affect Skin: Warm, dry, intact Extremities: Moves extremities equally Neuro: No focal neuro deficit, LLE with 3+ pitting edema, slight pre-tibial erythema and tenderness, DP/PT pulses strong and palpable Constitutional Vital Signs, click to edit/add: Last Vital Signs Temp 97.8 F 08/14/24 07:37 Pulse 84 08/14/24 07:37 Resp 16 08/14/24 07:37 BP 150/88 H 08/14/24 07:37 Pulse Ox 95 08/14/24 07:37 O2 Del Method Room Air 08/14/24 07:37 Internal Medicine - PN: Obj Da Labs Labs: Laboratory Results - last 24 hr 08/13/24 08/14/24 16:06 05:27 WBC 7.5 5.6 RBC 4.33 3.84 L Hgb 12.9 11.5 L Hct 40.0 35.6 L MCV 92.4 92.7 MCH 29.8 29.9 MCHC 32.3 32.3 RDW 14.5 14.6 Plt Count 300 236 MPV 9.6 9.2 L Neut % (Auto) 56.8 45.4 Lymph % (Auto) 30.4 36.9 [place] % (Auto) 7.7 10.2 Eos % (Auto) 3.7 5.5 Baso % (Auto) 1.1 1.8 Neut # (Auto) 4.3 2.6 Lymph # (Auto) 2.3 2.1 [place] # (Auto) 0.6 0.6 Eos # (Auto) 0.3 0.3 Baso # (Auto) 0.1 0.1 Abs Immat Gran (auto) 0.02 0.01 Imm/Tot Granulo (auto) 0.3 0.2 ESR 50 H 21 Sodium 143 145 Potassium 3.9 4.2 Chloride 107 112 H Carbon Dioxide 22.3 22.5 Anion Gap 17.6 14.7 BUN 21.0 H 15.0 Creatinine 0.80 0.70 Est GFR ( Amer) >60 >60 Est GFR (Non-Af Amer) >60 >60 BUN/Creatinine Ratio 26.3 21.4 Glucose 90 92 Lactate 0.6 Calcium 9.4 8.5 Magnesium 2.0 2.1 Total Bilirubin 0.7 0.8 AST 30 24 ALT 28 22 Alkaline Phosphatase 122 H 95 C-Reactive Protein 0.65 H 0.76 H Total Protein 7.3 5.9 L Albumin 3.3 L 2.4 L Globulin 4.0 3.5 Albumin/Globulin Ratio 0.8 0.7
[2024-08-14] MEDS: MELOXICAM 7.5 MG TABLET 15 MG PO (09:07)
[2024-08-14] MEDS: ACETAMINOPHEN 500 MG TABLET 1000 MG PO (09:07)
[2024-08-14] MEDS: LEFLUNOMIDE 20 MG TABLET PO (09:07)
[2024-08-14] MEDS: CETIRIZINE HCL 10 MG TABLET PO (09:07)
[2024-08-14] MEDS: LISINOPRIL 10 MG TABLET PO (09:07)
--- NOTE | 2024-08-14 10:00 | CM.NOTE ---
Rounds made with Dr. Montanez, continue IV antibiotics no discharge today.
[2024-08-14] MEDS: FUROSEMIDE 20 MG/2 ML VIAL IVP (10:53)
[2024-08-14] MEDS: HEPARIN SODIUM (PORCINE) 5,000 UNIT/ML VIAL 5000 UNIT SUBQ ×2 (10:54→17:30)
[2024-08-14] MEDS: 0.9 % SODIUM CHLORIDE 250 ML 10.417 ML IV (15:33)
[2024-08-14] MEDS: VANCOMYCIN HCL 1,250 MG in 0.9 % SODIUM CHLORIDE 250 ML 167 MG IV (17:26)
[2024-08-14] MEDS: TRAMADOL HCL 50 MG TABLET PO (22:04)
[2024-08-15] VITALS (9 sets, daily range): BP systolic 106–140; BP diastolic 72–104; PULSE 74–97; TEMP 36.6–36.8; O2SAT 92–95
[2024-08-15] MEDS: HEPARIN SODIUM (PORCINE) 5,000 UNIT/ML VIAL 5000 UNIT SUBQ ×3 (01:37→17:39)
[2024-08-15] MEDS: VANCOMYCIN HCL 1,250 MG in 0.9 % SODIUM CHLORIDE 250 ML 150 MG IV (04:14)
[2024-08-15 05:38] LABS: Hematocrit 36.7 % (36.0-48.0); Hemoglobin 11.6 g/dL (12.0-16.0); Immature Granulocytes Abs Auto 0.01 10^3/uL (0.00-0.03); Immature Granulocytes Pct Auto 0.2 % (0.0-0.5); Lymphocytes Absolute Auto 2.6 10^3/uL (1.2-3.8); Mean Corpuscular HGB Conc 31.6 g/dL (29.9-35.2); Mean Corpuscular Hemoglobin 29.4 pg (26.7-34.0); Mean Corpuscular Volume 92.9 fL (81.0-99.0); Platelet Count 260 10^3/uL (150-450); Red Blood Count 3.95 10^6/uL (4.20-5.40); White Blood Count 5.4 10^3/uL (4.0-11.0)
[2024-08-15 05:56] LABS: Alanine Aminotransferase 27 U/L (14-59); Albumin Globulin Ratio 0.7; Albumin Level 2.4 g/dL (3.4-5.0); Alkaline Phosphatase 94 U/L (46-116); Anion Gap 14.3; Aspartate Amino Transferase 31 U/L (15-37); Blood Urea Nitrogen 16.0 mg/dL (7.0-18.0); Calcium 8.5 mg/dL (8.5-10.1); Carbon Dioxide 24.7 mmol/L (21.0-32.0); Chloride 112 mmol/L (98-107); Estimated GFR (African America >60 (>=60 mL/min/1.73m^2); Estimated GFR (Non-African Ame >60 (>=60 mL/min/1.73m^2); Globulin 3.5 g/dL; Glucose 96 mg/dL (74-106); Potassium 4.0 mmol/L (3.5-5.1); Sodium 147 mmol/L (136-145); Total Protein 5.9 g/dL (6.4-8.2)
[2024-08-15] MEDS: PIPERACILLIN SODIUM/TAZOBACTAM 3.375 GM in 0.9 % SODIUM CHLORIDE 50 ML IV ×3 (06:33→23:11)
[2024-08-15] MEDS: KETOROLAC TROMETHAMINE 30 MG/ML VIAL IVP ×2 (09:02→21:12)
[2024-08-15] MEDS: MELOXICAM 7.5 MG TABLET 15 MG PO (09:02)
[2024-08-15] MEDS: CETIRIZINE HCL 10 MG TABLET PO (09:02)
[2024-08-15] MEDS: LISINOPRIL 10 MG TABLET PO (09:02)
[2024-08-15] MEDS: LEFLUNOMIDE 20 MG TABLET PO (09:02)
--- NOTE | 2024-08-15 09:14 | P.IMPN_ITS ---
Progress Note: A&P Assessment and Plan (1) Cellulitis of left leg: (2) Left leg pain: (3) Failure of outpatient treatment: (4) Hypertension: (5) Arthritis, rheumatoid: Plan Brooke Ray is a 58 y/o F h/o hypertension, rheumatoid arthritis on leflunomide, venous insufficiency s/p distant RLE vein stripping and presumed LLE sclerotherapy, presented to [facility] with persistent LLE erythema and edema, concern for persistent cellulitis prompting admission for failure of outpatient therapy. 1. Persistent LLE cellulitis in the setting of failed outpatient therapy - DVT u/s -ve - blood cultures ordered - most recent regimen was cefdinir and doxycycline - admitted with zosyn and vancomycin - patient did state erythema started as localized spot, lyme serology ordered - likely component of venous insufficency, anticipate need for combination antibiotics and diuresis - additional dose of lasix 20 mg IV ordered for today - anticipate plan for discharge with keflex and clindamycin tomorrow if blood cultures negative 2. h/o hypertension, rheumatoid arthritis on leflunomide, venous insufficiency s/p distant RLE vein stripping and presumed LLE sclerotherapy - continue home antihypertensives, lisinopril 10 mg daily - continue leflunomide Diet: Cardiac Lines/tubes: PIV VTE prophylaxis: sqh 5k q8h Code status: full Dispo: inpatient Internal Medicine - PN: Subj Subjective Interval history: Continues to feel improvement with left lower extremity erythema, does have slight pain however. No nausea, vomiting, fevers, chills. 2.3 L urine output yesterday Exam Narrative Exam Narrative: Gen.: Awake, alert, in no distress Head: Normocephalic, atraumatic ENT: Moist mucous membranes Respiratory: No respiratory distress, lungs clear bilaterally Cardio: Regular rate and rhythm Gastrointestinal: Abdomen is soft, nondistended and nontender to palpation Extremities: Moves extremities equally, reduced LLE pretibial erythema and edema Psych: Normal mood and affect Neuro: No focal neuro deficit Skin: Warm, dry, intact Constitutional Vital Signs, click to edit/add: Last Vital Signs Temp 98.3 F 08/15/24 08:58 Pulse 97 H 08/15/24 08:58 Resp 16 08/15/24 08:58 BP 140/104 H 08/15/24 08:58 Pulse Ox 94 L 08/15/24 08:58 O2 Del Method Room Air 08/15/24 08:58 Internal Medicine - PN: Obj Da Labs Labs: Laboratory Results - last 24 hr 08/15/24 05:08 WBC 5.4 RBC 3.95 L Hgb 11.6 L Hct 36.7 MCV 92.9 MCH 29.4 MCHC 31.6 RDW 14.8 Plt Count 260 MPV 9.6 Neut % (Auto) 33.8 L Lymph % (Auto) 48.5 [place] % (Auto) 10.1 Eos % (Auto) 5.7 Baso % (Auto) 1.7 Neut # (Auto) 1.8 Lymph # (Auto) 2.6 [place] # (Auto) 0.6 Eos # (Auto) 0.3 Baso # (Auto) 0.1 Abs Immat Gran (auto) 0.01 Imm/Tot Granulo (auto) 0.2 ESR 26 Sodium 147 H Potassium 4.0 Chloride 112 H Carbon Dioxide 24.7 Anion Gap 14.3 BUN 16.0 Creatinine 0.74 Est GFR ( Amer) >60 Est GFR (Non-Af Amer) >60 BUN/Creatinine Ratio 21.6 Glucose 96 Calcium 8.5 Total Bilirubin 0.8 AST 31 ALT 27 Alkaline Phosphatase 94 C-Reactive Protein 0.69 H Total Protein 5.9 L Albumin 2.4 L Globulin 3.5 Albumin/Globulin Ratio 0.7
--- NOTE | 2024-08-15 09:20 | CM.NOTE ---
Rounds made with Dr. Montanez, redness to lower extremity improving. Pt continues to c/o pain to L lower leg. Continue IV antibiotics, no discharge today.
[2024-08-15] MEDS: FUROSEMIDE 20 MG/2 ML VIAL IVP (09:55)
[2024-08-15] MEDS: VANCOMYCIN HCL 1,250 MG in 0.9 % SODIUM CHLORIDE 250 ML 250 MG IV (16:41)
[2024-08-15] MEDS: TRAMADOL HCL 50 MG TABLET PO (21:11)
[2024-08-16] MEDS: VANCOMYCIN HCL 1,250 MG in 0.9 % SODIUM CHLORIDE 250 ML 166 MG IV (04:59)
[2024-08-16 05:03] VITALS: BP 116/79; PULSE 77; TEMP 36.5; O2SAT 92
[2024-08-16 05:49] LABS: Hematocrit 36.5 % (36.0-48.0); Hemoglobin 11.8 g/dL (12.0-16.0); Immature Granulocytes Abs Auto 0.02 10^3/uL (0.00-0.03); Immature Granulocytes Pct Auto 0.4 % (0.0-0.5); Lymphocytes Absolute Auto 2.5 10^3/uL (1.2-3.8); Mean Corpuscular HGB Conc 32.3 g/dL (29.9-35.2); Mean Corpuscular Hemoglobin 29.8 pg (26.7-34.0); Mean Corpuscular Volume 92.2 fL (81.0-99.0); Platelet Count 240 10^3/uL (150-450); Red Blood Count 3.96 10^6/uL (4.20-5.40); White Blood Count 5.5 10^3/uL (4.0-11.0)
[2024-08-16 06:14] LABS: Alanine Aminotransferase 30 U/L (14-59); Albumin Globulin Ratio 0.7; Albumin Level 2.5 g/dL (3.4-5.0); Alkaline Phosphatase 95 U/L (46-116); Anion Gap 16.2; Aspartate Amino Transferase 35 U/L (15-37); Blood Urea Nitrogen 19.0 mg/dL (7.0-18.0); Calcium 8.7 mg/dL (8.5-10.1); Carbon Dioxide 22.8 mmol/L (21.0-32.0); Chloride 112 mmol/L (98-107); Estimated GFR (African America >60 (>=60 mL/min/1.73m^2); Estimated GFR (Non-African Ame >60 (>=60 mL/min/1.73m^2); Globulin 3.5 g/dL; Glucose 100 mg/dL (74-106); Potassium 4.0 mmol/L (3.5-5.1); Sodium 147 mmol/L (136-145); Total Protein 6.0 g/dL (6.4-8.2)
[2024-08-16] MEDS: PIPERACILLIN SODIUM/TAZOBACTAM 3.375 GM in 0.9 % SODIUM CHLORIDE 50 ML IV (06:48)
[2024-08-16 07:40] VITALS: BP 119/76; PULSE 77; TEMP 36.6; O2SAT 94
[2024-08-16] MEDS: CETIRIZINE HCL 10 MG TABLET PO (08:29)
[2024-08-16] MEDS: FUROSEMIDE 20 MG/2 ML VIAL IVP (08:29)
[2024-08-16] MEDS: MELOXICAM 7.5 MG TABLET 15 MG PO (08:29)
[2024-08-16] MEDS: LEFLUNOMIDE 20 MG TABLET PO (08:29)
[2024-08-16] MEDS: LISINOPRIL 10 MG TABLET PO (08:29)
--- NOTE | 2024-08-16 09:10 | PM.IMPN1 ---
Progress Note: A&P Assessment and Plan (1) Cellulitis of left leg: (2) Left leg pain: (3) Failure of outpatient treatment: (4) Hypertension: (5) Arthritis, rheumatoid: Internal Medicine - PN: Subj Subjective Interval history: Continues to feel improvement with left lower extremity erythema, does have slight pain however. No nausea, vomiting, fevers, chills. 2.3 L urine output yesterday Exam Constitutional Vital Signs, click to edit/add: Last Vital Signs Temp 97.9 F 08/16/24 07:40 Pulse 77 08/16/24 07:40 Resp 16 08/16/24 07:40 BP 119/76 08/16/24 07:40 Pulse Ox 94 L 08/16/24 07:40 O2 Del Method Room Air 08/16/24 07:40 Internal Medicine - PN: Obj Da Labs Labs: Laboratory Results - last 24 hr 08/14/24 08/16/24 08/16/24 10:41 05:18 07:07 WBC 5.5 RBC 3.96 L Hgb 11.8 L Hct 36.5 MCV 92.2 MCH 29.8 MCHC 32.3 RDW 14.9 Plt Count 240 MPV 9.5 Neut % (Auto) 37.2 L Lymph % (Auto) 45.1 [place] % (Auto) 9.7 Eos % (Auto) 6.0 Baso % (Auto) 1.6 Neut # (Auto) 2.0 Lymph # (Auto) 2.5 [place] # (Auto) 0.5 Eos # (Auto) 0.3 Baso # (Auto) 0.1 Abs Immat Gran (auto) 0.02 Imm/Tot Granulo (auto) 0.4 Sodium 147 H Potassium 4.0 Chloride 112 H Carbon Dioxide 22.8 Anion Gap 16.2 BUN 19.0 H Creatinine 0.80 Est GFR ( Amer) >60 Est GFR (Non-Af Amer) >60 BUN/Creatinine Ratio 23.8 Glucose 100 Calcium 8.7 Total Bilirubin 0.6 AST 35 ALT 30 Alkaline Phosphatase 95 Total Protein 6.0 L Albumin 2.5 L Globulin 3.5 Albumin/Globulin Ratio 0.7 Vancomycin Peak 49.9 H Vancomycin Trough Lyme Total Antibody Negative
--- NOTE | 2024-08-16 10:22 | PM.DS1 ---
DS: Providers Provider Date of admission: 08/13/24 17:54 Primary care physician: TERESA PORTILLO Admitting clinician: Paul Villatoro Attending physician on admission: Paul Villatoro Consults: 08/13/24 18:45 Consult to Pharmacy Routine Consulting Provider: Reason for consultation: Please [place] me when Med Rec is Updated - Last one Has provider been notified: No Attending physician on discharge: LUIS A DOBSON Discharging clinician: LUIS A DOBSON Anticipated date of discharge: 08/16/24 DS: Diagnosis Discharge Diagnosis (1) Cellulitis of left leg: (2) Left leg pain: (3) Failure of outpatient treatment: (4) Hypertension: (5) Arthritis, rheumatoid: DS: Summary Hospital Course Hospital Course: Brooke Ray is a 58 y/o F h/o hypertension, rheumatoid arthritis on leflunomide, venous insufficiency s/p distant RLE vein stripping and presumed LLE sclerotherapy, presented to [facility] with persistent LLE erythema and edema, concern for persistent cellulitis prompting admission for failure of outpatient therapy on 08/13/24. Started on broad spectrum antibiotics and mild diuresis with lasix 20 mg IV daily for 2 days. Symptomatically improved, blood cultures negative, DVT u/s -ve, discharged on 08/16/24 with 14 day course linezolid and terbinafine, plan for outpatient follow up for symptoms and for lyme titre. Time Spent with Patient Time attestation: Total time spent providing and/or coordinating discharge services: Exam Narrative Exam Narrative: Gen.: Awake, alert, in no distress Head: Normocephalic, atraumatic ENT: Moist mucous membranes Respiratory: No respiratory distress, lungs clear bilaterally Cardio: Regular rate and rhythm Gastrointestinal: Abdomen is soft, nondistended and nontender to palpation Psych: Normal mood and affect Skin: Warm, dry, intact Extremities: Moves extremities equally Neuro: No focal neuro deficit, LLE with 2+ pitting edema, slight pre-tibial erythema and tenderness, DP/PT pulses strong and palpable Constitutional Vital Signs, click to edit/add: Last Vital Signs Temp 97.9 F 08/16/24 07:40 Pulse 77 08/16/24 07:40 Resp 16 08/16/24 07:40 BP 119/76 08/16/24 07:40 Pulse Ox 94 L 08/16/24 07:40 O2 Del Method Room Air 08/16/24 07:40 DS: Data Data Completed and Pending Labs on day of discharge: Labs from last 24 hours 08/16/24 08/16/24 08/14/24 07:07 05:18 10:41 WBC 5.5 RBC 3.96 L Hgb 11.8 L Hct 36.5 MCV 92.2 MCH 29.8 MCHC 32.3 RDW 14.9 Plt Count 240 MPV 9.5 Neut % (Auto) 37.2 L Lymph % (Auto) 45.1 [place] % (Auto) 9.7 Eos % (Auto) 6.0 Baso % (Auto) 1.6 Neut # (Auto) 2.0 Lymph # (Auto) 2.5 [place] # (Auto) 0.5 Eos # (Auto) 0.3 Baso # (Auto) 0.1 Abs Immat Gran (auto) 0.02 Imm/Tot Granulo (auto) 0.4 Sodium 147 H Potassium 4.0 Chloride 112 H Carbon Dioxide 22.8 Anion Gap 16.2 BUN 19.0 H Creatinine 0.80 Est GFR ( Amer) >60 Est GFR (Non-Af Amer) >60 BUN/Creatinine Ratio 23.8 Glucose 100 Calcium 8.7 Total Bilirubin 0.6 AST 35 ALT 30 Alkaline Phosphatase 95 Total Protein 6.0 L Albumin 2.5 L Globulin 3.5 Albumin/Globulin Ratio 0.7 Vancomycin Peak 49.9 H Vancomycin Trough Lyme Total Antibody Negative Preliminary micro results at discharge 08/13/24 16:08 Blood Culture Result 1 - Preliminary Blood NO GROWTH AT 36-48 HOURS. FINAL TO FOLLOW. 08/13/24 16:06 Blood Culture Result 2 - Preliminary Blood NO GROWTH AT 36-48 HOURS. FINAL TO FOLLOW. Discharge Plan Discharge Disposition: Home, Self-Care Condition: Good Discharge Medications: New linezolid 600 mg tablet 600 mg PO BID 14 Days Qty: 28 0RF terbinafine HCl 250 mg tablet 250 mg PO DAILY 14 Days Qty: 14 0RF Continued cetirizine 10 mg tablet 10 mg PO DAILY meloxicam 15 mg tablet 15 mg PO DAILY leflunomide 20 mg tablet 20 mg PO DAILY Discontinued doxycycline monohydrate 100 mg capsule 100 mg PO BID Rx Instructions: 08/03/24-08/16/24 cefdinir 300 mg capsule 300 mg PO BID Rx Instructions: 08/03/24-08/16/24 Activity: increase activity as tolerated Diet: advance to your usual diet Print Language: Tajik Patient Instructions: Terbinafine (By mouth), Linezolid (By mouth), Cellulitis (GEN) Forms: Portal Instructions Follow Up Appointments: August 21 @ 1pm with Teresa Portillo NP [phone] Discharge Date/Time: 08/16/24 11:36
[2024-08-16] MEDS: HEPARIN SODIUM (PORCINE) 5,000 UNIT/ML VIAL 5000 UNIT SUBQ (10:34)
[2024-08-16 11:11] VITALS: O2SAT 94
--- NOTE | 2024-08-16 11:14 | CM.NOTE ---
Discussed Brooke's care with Dr. Montanez. Improvement with reddness and Plan is for discharge today.
--- NOTE | 2024-08-20 11:07 | CM.DCFOLLOWU ---
1st attempt 08/20/24, no answer
--- NOTE | 2024-08-21 11:13 | CM.DCFOLLOWU ---
2nd attempt 08/21/24, no answer
--- NOTE | 2024-08-22 11:27 | CM.DCFOLLOWU ---
3rd attempt 08/22/24, no answer
== END 2024-08-16 11:36 | disposition home or self-care (01) | DRG 603 ==
LOC: ER 17:29 → MS 08-14 06:42
PROVIDERS: Family Medicine; Physician Assistant; Admitting Provider Student in an Organized Health Care Education/Training Program; Emergency Provider Emergency Medicine; PCP Nurse Practitioner Family; Visit Provider Student in an Organized Health Care Education/Training Program
DX: L03.116 Cellulitis of left lower limb (principal); D84.821 Immunodeficiency due to drugs; M06.9 Rheumatoid arthritis, unspecified; T39.4X5A Adverse effect of antirheumatics, not elsewhere classified, initial encounter; I10 Essential (primary) hypertension; J30.2 Other seasonal allergic rhinitis; Z79.899 Other long term (current) drug therapy; Z79.1 Long term (current) use of non-steroidal anti-inflammatories (NSAID); Z87.891 Personal history of nicotine dependence
CPT/HCPCS: 36415; 80053; 80202; 83605; 83735; 85025; 85652; 86140; 86618; 87040; 93971; 94761; 96365; 96366; 96368; 99285; J0360; J1644; J1885; J1938; J2543; J3370

== ENCOUNTER 2024-09-01 09:09 | Emergency (ER) | payer BC, SELFPAY ==
--- OUTSIDE RECORDS SUMMARY | 2024-08-24 04:52 | XMS_ITS ---
Author Organization [facility] in [place] Address [address] [place] [address] Care Team Providers Care Device Engineer Name Role Phone Teresa Portillo Primary Care Provider REASON FOR VISIT atb Medications Medication SIG (Take, Route, Frequency, Duration) Notes Start Date End Date Status Cipro 500 MG 1 tablet Orally ever y 12 hrs for 10 days 08/24/2024 Active Encounters Encounter Location Date Provider Diagnosis [facility], [place] [address] [place] [address] 08/24/2024 Teresa Portillo Plan Of Treatment Medication Medication Name Sig Start Date Stop Date Notes Cipro 500 MG 1 tablet Orally every 12 hrs for 10 days 08/14 Linezolid Progress Notes * Brooke STEVENS EDOB: [birth year] (58 yo F)Acc No.[id number]:08/24/2024 Patient: Brooke DHALIWAL :1965 A ge:58 Y S ex:Female Address:[address] [place] [address] * Refills Stop Linezolid Start Cipro Tablet, 500 MG, Orally, 20 Tablet, 1 tablet, every 12 hrs, 10 days, Refills=0 Subjective: * Chief Complaints: * A tb * Medical History: * Surgical History: * Hospitalization/Major Diagno stic Procedure: * Medications: Objective: * Vitals: * Physical Examination: Assessment: Plan: * Treatment: * Procedure Codes: * true * Date: Generated for Magui thomas/Tashi/Mejiaitting on: 0 09/01/2024 09:19 AM EDT
--- OUTSIDE RECORDS SUMMARY | 2024-08-29 06:29 | XMS_ITS ---
Author Organization [facility] in [place] Address [address] [place] [address] Care Team Providers Care Pumper Hand Name Role Phone Teresa Portillo Primary Care Provider REASON FOR VISIT rheum note Encounters Encounter Location Date Provider Diagnosis [facility] [address] [place] [address] 08/29/2024 Teresa Portillo Plan Of Treatment No Information Progress Notes * Brooke STEVENS EDOB: 6 (58 yo F)Acc No.[id number]:08/29/2024 Patient: Brooke DHALIWAL :1965 A ge:58 Y S ex:Female Address:[address] [place] [address] * true * Date: Generated for Magui thomas/Tashi/eTransmitting on: 0 09/01/2024 09:19 AM EDT
[2024-09-01] VITALS (10 sets, daily range): BP systolic 135–180; BP diastolic 92–110; PULSE 88–104; TEMP 37; O2SAT 96–97; BMI 29.2
--- NOTE | 2024-09-01 09:17 | ECG_ITS ---
[facility] Test Date: 2024-09-01 Pat Name: CIELO STEVENS Department: Room: - Gender: Female [employer]: : 1965 Requested By: [id number] Order Number: [id number] Reading MD: ROMINA BAUMAN M.D. Measurements Intervals Triangle Rate: 96 P: 64 WV: 156 QRS: 37 QRSD: 82 T: 39 QT: 350 QTc: 404 Interpretive Statements 1100 Sinus rhythm 9110 normal ECG Compared to ECG 02/29/2024 15:07:19 No significant changes Electronically Signed On 09-02-2024 15:36:22 EDT by ROMINA BAUMAN M.D.
--- OUTSIDE RECORDS SUMMARY | 2024-09-01 09:19 | XMS_ITS | Clinical Summary ---
Author Organization [id number] Address [facility] [id number] [address] [place] [address] Care Team Providers Care Systems Security Analyst Name Role Phone Teresa Portillo RN [employer] Primary Care Provider Social History Tobacco Use Types Packs/Day Years Used Date Smoking Tobacco: Never Assessed Childcare Answer Date Recorded Childcare Unknown 07/25/2018 Employment Answer Date Recorded Employment Unknown 07/25/2018 Purpose - Life Answer Date Recorded Purpose and direction in life Unknown Comments Unknown Sex and Gender Information Value Date Recorded Sex Assigned at Not on file Legal Sex Female 6:17 PM EDT Gender Identity Not on file Sexual Orientation Not on file Plan of Treatment Health Maintenance Due Date Last Done Comments Depression Screening 1977 Tobacco Screening 1977 Adult BMI Screening 11/13/1983 DTaP,Tdap and Td Vaccines (1 - Tdap) 1984 Pap Smear 1986 Zoster (Shingles) Vaccine (1 of 2) 11/13/2015 Influenza Vaccine 10/15/2024 Medical Devices Not on file Insurance [employer] Care Teams Systems Security Analyst Relationship Specialty Start Date End Date Teresa Portillo, RN [employer] [address] [facility] [place] [address] PCP - General Family Medicine 06/16/18
--- OUTSIDE RECORDS SUMMARY | 2024-09-01 09:20 | XMS_ITS | Patient Health Record ---
Author Organization The [facility] in [place] Address [address] [place] [address] Care Team Providers Care Accordion Repairer Name Role Phone Teresa De Primary Care Provider [phone] Wilbert Unavailable [phone] Allergies No Known Allergies Results Component Value Reference Range Notes CBC AUTO DIFF Reviewed date:09/26/2023 04:05:27 PM Interpretation: Performing Lab: Notes/Report: [facility] , White Blood Count 7.4 4.0-11.0 10 [...] 3/uL Performing Lab: see note ML - [facility] CREATININE Reviewed date:09/26/2023 04:05:27 PM Interpretation: Performing Lab: Notes/Report: [facility] , Creatinine 1.01 0.55-1.02 mg/dL Estimated GFR ( Sarah >60 >=60 Estimated GFR (Non- Kriss 56 >=60 Performing Lab: see note - [facility] LIVER PROFILE Reviewed date:09/26/2023 04:05:27 PM Interpretation: Performing Lab: Notes/Report: [facility] , Bilirubin Total 0.7 0.2-1.0 mg/dL Bilirubin Direct 0.1 0.0-0.2 mg/dL Aspartate Amino Transferase 26 15-37 U/L Alanine Aminotransferase 37 14-59 U/L Alkaline Phosphatase 88 46-116 U/L Total Protein 7.1 6.4-8.2 g/dL Albumin Level 3.4 3.4-5.0 g/dL Globulin 3.7 Albumin Globulin Ratio 0.9 Performing Lab: see note - [facility] Erythrocyte Sedimentation Ra te Reviewed date:09/26/2023 04:05:27 PM Interpretation: Performing Lab: Notes/Report: [facility] , Erythrocyte Sedimentation Rate 62 <=30 mm/hr Performing Lab: see note - [facility] LB MR foot RT wo con Reviewed date:10/21/2023 08:38:49 AM Interpretation: Performing Lab: Notes/Report: Source Facility: [facility] [place] [address] [place] [address] Magnetic Resonance Report Signed Patient: CIELO RAY MR#: [id number] : 1965 Acct:[id number] Age/Sex: 57 / F ADM Date: 10/18/23 Loc: MRI Attending Dr: Luiz Alcaraz M.D. Ordering Physician: Luiz Alcaraz M.D. Date of Service: 10/18/23 Procedure(s): MR foot RT wo con Accession Number(s): [id number] cc: TERESA DE ; Luiz Alcaraz M.D. [place] [address] Patient Name: CIELO RAY MRN: [facility]:[id number] date: 1965 Sex: F Assigned Patient Location: MRI Current Patient Location: Accession/Order Number: [id number] Exam Date: 10/18/2023 15:45 Report Date: 10/19/2023 [...] Signed By: 10/19/23 1213 DD/ 1211 TD/TT: Flash Drier Operator: [place] [address] Magnetic Resonance Report Signed Patient: JASON RAY MR#: [id number] : 1965 Acct:[id number] Age/Sex: 57 / F ADM Date: 10/18/23 Loc: MRI Attending Dr: Luiz Alcaraz M.D. Ordering Physician: Luiz Alcaraz M.D. Date of Service: 10/18/23 Procedure(s): MR maddison t RT wo con Accession Number(s): [id number] cc: TERESA DE ; Luiz Alcaraz M.D. [address] [address] Patient Name: CIELO RAY MRN: [facility]:[id number] date: 1965 Sex: F Assigned Patient Location: MRI Current Patient Location: Accession/Order Numb er: [id number] Exam Date: 10/18/2023 15:45 Report Date: 10/19/2023 [...] By: Toney Jean M.D. Signed By: 10/19/23 121 DD/ 10 TD/TT: Flash Drier Operator: CBC AUTO DIFF Reviewed date:02/13/2024 08:20:04 AM Interpretation: Performing Lab: Notes/Report: [facility] , White Blood Count 7.4 4.0-11.0 10 [...] Performing Lab: see note ML - [facility] LB ECG 12 lead Reviewed date:03/01/2024 08:58:55 AM Interpretation: Performing Lab: Notes/Report: Source Facility: [facility] [place] [address] [address] Electrocardiograph Report Signed Patient: CIELO RAY MR#: [id number] : 1965 Acct:[id number] Age/Sex: 58 / F ADM Date: 02/29/24 Loc: CARD Attending Dr: LUIZ BOOTHE M.D. Ordering Physician: LUIZ BOOTHE M.D. 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 Signed By: 02/29/24204602/29/242046 DD/ 1507 TD/TT: Flash Drier Operator: [address] [address] Electrocardiograph Report Signed Patient: JASON RAY MR#: [id number] : 1965 Acct:[id number] Age/Sex: 58 / F ADM Date: 02/29/24 Loc: CARD Attending Dr: LUIZ NATARAJAN M.D. Ordering Physician: LUIZ BOOTHE M.D. 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 Signed By: 02/29/24204602/29/242046 DD/ 1507 TD/TT: Flash Drier Operator: INSULIN Reviewed date:03/13/2024 10:57:51 AM Interpretation: Performing Lab: Notes/Report: [facility] , Insulin 27.4 2.6-24.9 uIU/mL Performed at: [facility] [address] [id number] Pick Pulling Machine Tender: Charlie Arevalo PhD, Phone: [phone] Performing Lab: see note - [facility] LB CBC AUTO DIFF Reviewed date:05/09/2024 11:52:31 AM Interpretation: Performing Lab: Notes/Report: [facility] , White Blood Count 6.0 4.0-11.0 10 [...] 3/uL Performing Lab: see note ML - [facility] LB CREATININE Reviewed date:05/09/2024 11:52:31 AM Interpretation: Performing Lab: Notes/Report: [facility] , Creatinine 0.92 0.55-1.02 mg/dL Estimated GFR ( Sarah >60 >=60 mL/min/1.73m 2 Estimated GFR (Non- Kriss >60 >=60 mL/min/1.73m 2 Performing Lab: see note ML - [facility] LIVER PROFILE Reviewed date:05/09/2024 11:52:31 AM Interpretation: Performing Lab: Notes/Report: [facility] , Bilirubin Total 0.6 0.2-1.0 mg/dL Bilirubin Direct 0.1 0.0-0.2 mg/dL Aspartate Amino Transferase 45 15-37 U/L Alanine Aminotransferase 51 14-59 U/L Alkaline Phosphatase 93 46-116 U/L Total Protein 7.1 6.4-8.2 g/dL Albumin Level 3.6 3.4-5.0 g/dL Globulin 3.5 Albumin Globulin Ratio 1.0 Performing Lab: see note ML - [facility] Erythrocyte Sedimentation Ra te Reviewed date:05/09/2024 11:52:23 AM Interpretation: Performing Lab: Notes/Report: [facility] , Erythrocyte Sedimentation Rate 33 <=30 mm/hr Performing Lab: see note ML - [facility] LB CRP Reviewed date:08/13/2024 09:05:03 PM Interpretation: Performing Lab: Notes/Report: [facility] , C Reactive Protein 0.65 <=0.50 mg/dL Performing Lab: see note ML - [facility] LB LACTATE or LACTIC ACID Reviewed date:08/13/2024 09:05:03 PM Interpretation: Performing Lab: Notes/Report: [facility] , Lactate/Lactic Acid 0.6 0.4-2.0 mmol/L Performing Lab: see note ML - [facility] LB MAGNESIUM Reviewed date:08/13/2024 09:05:03 PM Interpretation: Performing Lab: Notes/Report: [facility] , Magnesium 2.0 1.8-2.4 mg/dL Performing Lab: see note [facility] LB PROF 14(COMP METB) Reviewed date:08/13/2024 09:05:03 PM Interpretation: Performing Lab: Notes/Report: [facility] , Sodium 143 136-145 mmol/L Potassium 3.9 [...] Ratio 0.8 Performing Lab: see note - [facility] LB Blood Culture 1 Reviewed date:08/20/2024 08:26:11 AM Interpretation: Performing Lab: Notes/Report: RIGHT AC [facility] , Blood Culture 1 See Below For Report Blood Culture 1 NG5D NO GROWTH AT 5 DAYS.^NO GROWTH AT 5 DAYS. Performing Lab: see note - [facility] LB Blood Culture 2 Reviewed date:08/20/2024 08:26:11 AM Interpretation: Performing Lab: Notes/Report: LEFT AC [facility] , Blood Culture 2 See Below For Report Blood Culture 2 NG5D NO GROWTH AT 5 DAYS.^NO GROWTH AT 5 DAYS. Performing Lab: see note - [facility] LB Erythrocyte Sedimentation Ra te Reviewed date:08/13/2024 09:05:03 PM Interpretation: Performing Lab: Notes/Report: [facility] , Erythrocyte Sedimentation Rate 50 <=30 mm/hr Performing Lab: see note ML - [facility] LB CBC AUTO DIFF Reviewed date:08/14/2024 06:45:21 PM Interpretation: Performing Lab: Notes/Report: [facility] , White Blood Count 5.6 4.0-11.0 10 [...] Performing Lab: see note ML - [facility] LB CRP Reviewed date:08/14/2024 06:45:21 PM Interpretation: Performing Lab: Notes/Report: [facility] , C Reactive Protein 0.76 <=0.50 mg/dL Performing Lab: see note ML - [facility] LB MAGNESIUM Reviewed date:08/14/2024 06:45:21 PM Interpretation: Performing Lab: Notes/Report: [facility] , Magnesium 2.1 1.8-2.4 mg/dL Performing Lab: see note - [facility] LB PROF 14(COMP METB) Reviewed date:08/14/2024 06:45:21 PM Interpretation: Performing Lab: Notes/Report: [facility] , Sodium 145 136-145 mmol/L Potassium 4.2 [...] Globulin Ratio 0.7 Performing Lab: see note - [facility] Erythrocyte Sedimentation Ra te Reviewed date:08/14/2024 06:45:21 PM Interpretation: Performing Lab: Notes/Report: [facility] , Erythrocyte Sedimentation Rate 21 <=30 mm/hr Performing Lab: see note ML - [facility] Lyme Disease Serology w/Refl ex Reviewed date:08/15/2024 06:35:21 PM Interpretation: Performing Lab: Notes[facility]Report: [facility] , L[facility] Total Antibody JOCELYN Negative Negative Lyme antibodies not detected. Reflex testing is not indicated. No laboratory evidence of infection with B. burgdorferi (Lyme disease). Negative results may occur in patients recently infected (less than or equal to 14 days) with B. burgdorferi. If recent infection is suspected, repeat testing on a new sample collected in 7 to 14 days is recommended. Performed at: [address], [place] [id number] Pick Pulling Machine Tender: Charlie Arevalo PhD, Phone: [phone] Performing Lab: see note LC - [facility] LB CBC AUTO DIFF Reviewed date:08/15/2024 06:35:21 PM Interpretation: Performing Lab: Notes/Report: [facility] , White Blood Count 5.4 4.0-11.0 10 3/uL Red Blood Count 3.95 4.20-5.40 10 6/uL Hemoglobin 11.6 12.0-16.0 g/dL Hematocrit 36.7 36.0-48.0 % Mean Corpuscular Volume 92.9 81.0-99.0 fL Mean Corpuscular Hemoglobin 29.4 26.7-34.0 pg Mean Corpuscular HGB Conc 31.6 29.9-35.2 g/dL Red Cell Distribution Width 14.8 11.0-15.0 % Platelet Count 260 150-450 10 3/uL Mean Platelet Volume 9.6 9.5-13.5 fL Neutrophils Percent Auto 33.8 43.0-75.0 % Lymphocytes Percent Auto 48.5 20.5-60.0 % Monocytes Percent Auto 10.1 1.7-12.0 % Eosinophils Percent Auto 5.7 0.9-7.0 % Basophils Percent Auto 1.7 0.2-2.0 % Immature Granulocytes Pct Auto 0.2 0.0-0.5 % Neutrophils Absolute Auto 1.8 1.4-6.5 10 3/uL Lymphocytes Absolute Auto 2.6 1.2-3.8 10 3/uL Monocytes Absolute Auto 0.6 0.3-0.8 10 3/uL Eosinophils Absolute Auto 0.3 0.0-0.7 10 3/uL Basophils Absolute Auto 0.1 0.0-0.1 10 3/uL Immature Granulocytes Abs Auto 0.01 0.00-0.03 10 3/uL Performing Lab: see note - [facility] LB CRP Reviewed date:08/15/2024 06:35:21 PM Interpretation: Performing Lab: Notes/Report: [facility] , C Reactive Protein 0.69 <=0.50 mg/dL Performing Lab: see note - [facility] LB PROF 14(COMP METB) Reviewed date:08/15/2024 06:35:21 PM Interpretation: Performing Lab: Notes/Report: [facility] , Sodium 147 136-145 mmol/L Potassium 4.0 3.5-5.1 mmol/L Chloride 112 98-107 mmol/L Carbon Dioxide 24.7 21.0-32.0 mmol/L Anion Gap 14.3 Glucose 96 74-106 mg/dL Blood Urea Nitrogen 16.0 7.0-18.0 mg/dL Creatinine 0.74 0.55-1.02 mg/dL Estimated GFR ( Sarah >60 >=60 mL/min/1.73m 2 Estimated GFR (Non- Kriss >60 >=60 mL/min/1.73m 2 BUN Creatinine Ratio 21.6 Calcium 8.5 8.5-10.1 mg/dL Bilirubin Total 0.8 0.2-1.0 mg/dL Aspartate Amino Transferase 31 15-37 U/L Alanine Aminotransferase 27 14-59 U/L Alkaline Phosphatase 94 46-116 U/L Total Protein 5.9 6.4-8.2 g/dL Albumin Level 2.4 3.4-5.0 g/dL Globulin 3.5 Albumin Globulin Ratio 0.7 Performing Lab: see note ML - [facility] LB Erythrocyte Sedimentation Ra te Reviewed date:08/15/2024 06:35:21 PM Interpretation: Performing Lab: Notes/Report: [facility] , Erythrocyte Sedimentation Rate 26 <=30 mm/hr Performing Lab: see note - [facility] LB CBC AUTO DIFF Reviewed date:08/16/2024 08:39:47 PM Interpretation: Performing Lab: Notes/Report: [facility] , White Blood Count 5.5 4.0-11.0 10 3/uL Red Blood Count 3.96 4.20-5.40 10 6/uL Hemoglobin 11.8 12.0-16.0 g/dL Hematocrit 36.5 36.0-48.0 % Mean Corpuscular Volume 92.2 81.0-99.0 fL Mean Corpuscular Hemoglobin 29.8 26.7-34.0 pg Mean Corpuscular HGB Conc 32.3 29.9-35.2 g/dL Red Cell Distribution Width 14.9 11.0-15.0 % Platelet Count 240 150-450 10 3/uL Mean Platelet Volume 9.5 9.5-13.5 fL Neutrophils Percent Auto 37.2 43.0-75.0 % Lymphocytes Percent Auto 45.1 20.5-60.0 % Monocytes Percent Auto 9.7 1.7-12.0 % Eosinophils Percent Auto 6.0 0.9-7.0 % Basophils Percent Auto 1.6 0.2-2.0 % Immature Granulocytes Pct Auto 0.4 0.0-0.5 % Neutrophils Absolute Auto 2.0 1.4-6.5 10 3/uL Lymphocytes Absolute Auto 2.5 1.2-3.8 10 3/uL Monocytes Absolute Auto 0.5 0.3-0.8 10 3/uL Eosinophils Absolute Auto 0.3 0.0-0.7 10 3/uL Basophils Absolute Auto 0.1 0.0-0.1 10 3/uL Immature Granulocytes Abs Auto 0.02 0.00-0.03 10 3/uL Performing Lab: see note ML - [facility] LB PROF 14(COMP METB) Reviewed date:08/16/2024 08:39:47 PM Interpretation: Performing Lab: Notes/Report: [facility] , Sodium 147 136-145 mmol/L Potassium 4.0 3.5-5.1 mmol/L Chloride 112 98-107 mmol/L Carbon Dioxide 22.8 21.0-32.0 mmol/L Anion Gap 16.2 Glucose 100 74-106 mg/dL Blood Urea Nitrogen 19.0 7.0-18.0 mg/dL Creatinine 0.80 0.55-1.02 mg/dL Estimated GFR ( Sarah >60 >=60 mL/min/1.73m 2 Estimated GFR (Non- Kriss >60 >=60 mL/min/1.73m 2 BUN Creatinine Ratio 23.8 Calcium 8.7 8.5-10.1 mg/dL Bilirubin Total 0.6 0.2-1.0 mg/dL Aspartate Amino Transferase 35 15-37 U/L Alanine Aminotransferase 30 14-59 U/L Alkaline Phosphatase 95 46-116 U/L Total Protein 6.0 6.4-8.2 g/dL Albumin Level 2.5 3.4-5.0 g/dL Globulin 3.5 Albumin Globulin Ratio 0.7 Performing Lab: see note ML - [facility] LB VANCOMYCIN TROUGH Reviewed date:08/16/2024 08:56:14 AM Interpretation: Performing Lab: Notes/Report: [facility] , Vancomycin Trough 5.0-20.0 ug/mL RESULTS CALLED TO cecy tobin rn --- 08/16/24 0835 --- Vanc Trough previously reported as: 49.9 *H ug/mL RESULTS CALLED TO cecy tobin rn Performing Lab: see note ML - [facility] LB CBC AUTO DIFF Reviewed date:08/13/2024 09:05:03 PM Interpretation: Performing Lab: Notes/Report: [facility] , White Blood Count 7.5 4.0-11.0 10 [...] Performing Lab: see note ML - [facility] LB MM tomosynthesis screening B I Reviewed date:07/25/2024 10:00:17 AM Interpretation: Performing Lab: Notes/Report: Source Facility: [place] [address] [place] [address] Mammography Report Signed Patient: CIELO RAY MR#: [id number] : 1965 Acct:[id number] Age/Sex: 58 / F ADM Date: 07/24/24 Loc: MAMMO Attending Dr: TERESA DE Ordering Physician: TERESA DE Results: Date of Service: 07/24/24 Follow Up: Procedure(s): MM tomosynthesis screening BI Accession Number(s): [id number] cc: TERESA DE Patient Name: CIELO RAY MR#: [id number] : 1965 Exam Date: 07/24/2024 Ordering Doctor: TERESA DE [facility] REPORT PROCEDURE: MM TOMOSYNTHESIS SCREENING [...] breast cancer at age 45. LOCATION: [facility] BREAST COMPOSITION: There are scattered areas of [...] Signed By: 07/24/24 1606 DD/ 04 TD/TT: Flash Drier Operator: [place] [id number] Mammography Report Signed Patient: JASON RAY MR#: [id number] : 1965 Acct:[id number] Age/Sex: 58 / F ADM Date: 07/24/24 Loc: MAMMO Attending Dr: TERESA DE Ordering Physician: TERESA DE Results: Date of Service: 12/08 Follow Up: Procedure(s): MM tomosynthesis screening BI Accession Number(s): [id number] cc: TERESA DE Patient Name: CIELO RAY MR#: [id number] : 1965 Exam Date: 07/24/2024 Ordering Doctor: PHILIPP DE [facility] RAD[facility] REPORT PROCEDURE: MM TOMOSYNTHESIS SCREENING BI COMPARISON: MM TOMOSYNTHESIS SCREENING BI, 07/21/2023. MM TOMOSYNTHESIS SCREENING BI, 023. MG MAMM SCREEN 3D MICHELLE CAD, 07/16/2021. MG MAMM SCREEN MICHELLE W CAD, 04/12/2017. INDICATIONS: Screening Calculator Name NCI Breast Cancer Risk Assessment Tool 5 Year Breast Cancer Risk 2.60% Lifetime Breast Canc er Risk 14.20% Personal Breast Canc er No Personal Ovarian Can cer No Treatments None Family Cancers Mothe r with breast cancer at age 45. LOCATION: [facility] BREAST COMPOSITION: There are scattered areas [...] DO on 07/24/2024 at 16:05 Dictated By: rC Vitale M.D. Signed By: 07/24/24 1606 DD/ 04 TD/TT: Flash Drier Operator: Erythrocyte Sedimentation Ra te Reviewed date:04/02/2024 11:09:48 AM Interpretation: Performing Lab: Notes/Report: [facility] , Erythrocyte Sedimentation Rate 41 <=30 mm/hr Performing Lab: see note ML - [facility] LB LIVER PROFILE Reviewed date:04/02/2024 11:09:48 AM Interpretation: Performing Lab: Notes/Report: [facility] , Bilirubin Total 0.7 0.2-1.0 mg/dL Bilirubin Direct 0.1 0.0-0.2 mg/dL Aspartate Amino Transferase 32 15-37 U/L Alanine Aminotransferase 51 14-59 U/L Alkaline Phosphatase 112 46-116 U/L Total Protein 7.5 6.4-8.2 g/dL Albumin Level 3.3 3.4-5.0 g/dL Globulin 4.2 Albumin Globulin Ratio 0.8 Performing Lab: see note ML - [facility] LB Manual Differential Reviewed date:03/13/2024 10:57:51 AM Interpretation: Performing Lab: Notes/Report: [facility] , Segmented Neutrophils % Manual 90.0 43.0-75.0 [...] Performing Lab: see note ML - [facility] LB Erythrocyte Sedimentation Ra te Reviewed date:03/13/2024 10:57:51 AM Interpretation: Performing Lab: Notes/Report: [facility] , Erythrocyte Sedimentation Rate 59 <=30 mm/hr Performing Lab: see note ML - [facility] LB TSH Reviewed date:03/13/2024 10:57:51 AM Interpretation: Performing Lab: Notes/Report: [facility] , Thyroid Stimulating Hormone 0.587 0.358-3.740 uIU/mL Performing Lab: see note ML - [facility] LB T4 Reviewed date:03/13/2024 10:57:51 AM Interpretation: Performing Lab: Notes/Report: [facility] , T4 Thyroxine 7.40 4.80-13.90 ug/dL Performing Lab: see note ML - [facility] LB PROF 14(COMP METB) Reviewed date:03/13/2024 10:57:51 AM Interpretation: Performing Lab: Notes/Report: [facility] , Sodium 139 136-145 mmol/L Potassium 4.1 [...] Performing Lab: see note ML - [facility] LB LIPID PROFILE Reviewed date:03/13/2024 10:57:51 AM Interpretation: Performing Lab: Notes/Report: [facility] , Triglycerides 52 <=150 mg/dL Cholesterol 238 [...] Performing Lab: see note ML - [facility] LB IRON Reviewed date:03/13/2024 10:57:51 AM Interpretation: Performing Lab: Notes/Report: [facility] , Iron 63.0 50.0-170.0 ug/dL Performing Lab: see note - [facility] GLYCOHEMOGLOBIN A1C Reviewed date:03/13/2024 10:57:51 AM Interpretation: Performing Lab: Notes/Report: [facility] , Glycohemoglobin A1C 5.3 4.5-6.2 % ADA RECOMMENDED LIMIT 4.0 - 6.0 ADA THERAPEUTIC TARGET < 7.0 ACTION SUGGESTED > 7.0 Estimated Average Glucose 105 Performing Lab: see note ML - [facility] FREE T3 Reviewed date:03/13/2024 10:57:51 AM Interpretation: Performing Lab: Notes/Report: [facility] , Free T3 2.70 2.18-3.98 pg/mL Performing Lab: see note ML - [facility] CBC AUTO DIFF Reviewed date:03/13/2024 10:57:51 AM Interpretation: Performing Lab: Notes/Report: [facility] , White Blood Count 6.6 4.0-11.0 10 [...] fL Performing Lab: see note ML - [facility] Erythrocyte Sedimentation Ra te Reviewed date:02/13/2024 08:20:04 AM Interpretation: Performing Lab: Notes/Report: [facility] , Erythrocyte Sedimentation Rate 44 <=30 mm/hr Performing Lab: see note ML - [facility] LB Vancomycin Peak Reviewed date:08/16/2024 08:56:14 AM Interpretation: Performing Lab: Notes/Report: [facility] , Vancomycin Peak 49.9 <=40.0 ug/mL Performing Lab: see note ML - [facility] LB CREATININE Reviewed date:04/02/2024 11:09:48 AM Interpretation: Performing Lab: Notes/Report: [facility] , Creatinine 0.97 0.55-1.02 mg/dL Estimated GFR ( Sarah >60 >=60 mL/min/1.73m 2 Estimated GFR (Non- Kriss 59 >=60 mL/min/1.73m 2 Performing Lab: see note ML - [facility] LB CBC AUTO DIFF Reviewed date:04/02/2024 11:09:48 AM Interpretation: Performing Lab: Notes/Report: [facility] , White Blood Count 7.4 4.0-11.0 10 [...] 3/uL Performing Lab: see note ML - [facility] LB VITAMIN D 25 [place] Reviewed date:03/13/2024 10:57:51 AM Interpretation: Performing Lab: Notes/Report: [facility] , Vitamin D 34.2 <20 ng/mL Vit D deficient 20-<30 ng/mL Vit D insufficient 30-100 ng/mL Vit D sufficient >100 ng/mL Potential Toxicity Performing Lab: see note ML - [facility] LB LIVER PROFILE Reviewed date:02/13/2024 08:20:04 AM Interpretation: Performing Lab: Notes/Report: [facility] , Bilirubin Total 0.6 0.2-1.0 mg/dL Bilirubin Direct 0.1 0.0-0.2 mg/dL Aspartate Amino Transferase 17 15-37 U/L Alanine Aminotransferase 29 14-59 U/L Alkaline Phosphatase 94 46-116 U/L Total Protein 7.2 6.4-8.2 g/dL Albumin Level 3.3 3.4-5.0 g/dL Globulin 3.9 Albumin Globulin Ratio 0.8 Performing Lab: see note ML - [facility] LB CREATININE Reviewed date:02/13/2024 08:20:04 AM Interpretation: Performing Lab: Notes/Report: [facility] , Creatinine 0.87 0.55-1.02 mg/dL Estimated GFR ( Sarah >60 >=60 mL/min/1.73m 2 Estimated GFR (Non- Kriss >60 >=60 mL/min/1.73m 2 Performing Lab: see note ML - [facility] LB Reason For Referral Reason cellulitis Diagnosis 1 Cellulitis (L03.90) Referral Organization [facility] Referring Provider First Name Teresa Referring Provider Last Name Bandar Referring Provider Speciality [facility] Referred Provider Chin Medley Referred Provider Specialty Infectious D isease Referral Priority Routine Medications Medication SIG (Take, Route, Frequency, Duration) Notes Start Date End Date Status Folic Acid 1 MG 1 tablet Orally BID Active Leflunomide 20 MG Oral for 28 Days Active traMADol HCl 50 MG 1 tablet as needed Orally BID for 7 days 08/23/2024 Active Meclizine HCl 25 MG 1 tablet as needed Orally every 12 hrs for 7 days 06/16/2023 Active Cyclobenzaprine HCl 10 MG TAKE 1 TABLET BY MOUTH EVERY DAY AT BEDTIME NEEDED FOR 30 DAYS for 90 Active Cipro 500 MG 1 tablet Orally ever y 12 hrs for 10 days 08/24/2024 Active Fluticasone Propionate 50 MCG/ACT 1 spray in each nostril Nasally Once a day Active Cetirizine HCl 10 MG TAKE 1 TABLET BY MO UTH EVERY DAY FOR 30 DAYS for 90 Active Meloxicam 15 MG TAKE 1 TABLET BY MARIAH TH EVERY DAY for 30 Active Terbinafine Active Arthritis Pain Activ e Social History [...] Problem Status W/U Status Risk Notes Problem 15238906 Generalized anxiety disorder (F41.1) Active confirmed Problem 92902551 Venous insufficiency (chronic) (peripheral) (I87.2) Active confirmed Problem 381767978 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) Active confirmed Problem 469477489 Spondylosis without myelopathy or radiculopathy, cervical region (M47.812) Active confirmed Problem Exposure to communicable disease (487442814) Contact with and (suspected) exposure to other viral communicable diseases (Z20.828) Active confirmed Problem Anxiety (70775186) Anxiety (F41.9) Active confi rmed Problem Dizziness (290680070) Dizziness (R42) Active confirmed Problem 912894755 Diverticulosis (K57.90) Active confirmed Problem Arthralgia of the pelvic region and thigh (203261977) Hip pain, left (M25.552) Active confirmed Problem 723442467 Borderline hypertension (R03.0) Active confirmed Problem Serous otitis media (11465665) Serous otitis media (H65.90) Active confirmed Problem Costochondritis (21249538) Costochondritis (M94.0) Active confirmed Problem Diverticulitis (50662057) Diverticulitis (K57.92) Active confirmed Problem Angular cheilitis (253981783) Angular cheilitis (K13.0) Active confirmed Problem Ear pain, right (H92.01) Active confirmed Problem 15495453 DDD (degenerativ e disc disease), cervical (M50.30) Active confirmed Problem Dysfunction of left eustachian tube (2183572225345723) Eustachian tube dysfunction, left (H69.82) Active confirmed Problem Muscle spasm (57995222) Muscle spasm (M62.838) Active confirmed Problem Overweight (383227743) Over weight (E66.3) Active confirmed Problem Dysfunction of right eustachian tube (disorder) (9561941656283473) Eustachian tube dysfunction, right (H69.81) Active confirmed Problem Annual wellness visit (327928748261885) Wellness examination (Z00.00) Active confirmed Problem Chronic rheumatic arthritis (2639195083) Chronic rheumatic arthritis (M06.9) Active confirmed Problem Medial epicondylitis of elbow joint (80798159) Golfers elbow, left (M77.02) Active confirmed Problem 08387054 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) Active confirmed Vital Signs Heart Rate 89 /min 02/27/2024 Temperature 97.3 degrees Fahrenheit 08/13/2024 Oximetry 96 % 02/27/2024 Blood pressure diastolic 70 mm Hg 08/23/2024 Height 64 in 08/23/2024 Blood pressure systolic 128 mm Hg 08/23/2024 Weight 175.8 lbs 08/23/2024 BMI 30.17 kg/m2 08/23/2024 Encounters Encounter Location Date Provider Diagnosis [facility] [address] [place] [address] 08/23/2024 Teresa De [facility] [address] [place] [address] 08/23/2024 Teresa De [facility] [address] [place] [address] 08/23/2024 Teresa De [facility] [address] [place] [address] 08/24/2024 Teresa De [facility] [address] [place] [address] 08/28/2024 Teresa De [facility] [address] [place] [address] 08/29/2024 Teresa De [facility] [address] [facility] [place] [address] 02/24/2024 Teresa De [facility] [address] [facility] [place] [address] 03/13/2024 Teresa De [facility] [address] [facility] [place] [address] 07/10/2024 Teresa De [facility] [address] [facility] [place] [address] 07/25/2024 Teresa De [facility] [address] [facility] [place] [address] 08/07/2024 Teresa De [facility] [address] [facility] [place] [address] 08/15/2024 Teresa De [facility] [address] [facility] [place] [address] 02/27/2024 Teresa De Pre-op evaluation Z01.818 and Wellness examination Z00.00 [facility] [address] [facility] [place] [address] 05/17/2024 Wilbert Hoy Strep throat J02.0 [facility] [address] [facility] [place] [address] 07/06/2024 Teresa Bandar Left leg pain M79.60 5 and Cough R05.9 [facility] [address] [place] [address] 07/26/2024 Teresa Bandar Cellulitis L03.90 [facility] [address] [place] [address] 08/02/2024 Teresa Bandar Cellulitis L03.90 [facility] [address] [place] [facility] [place] [address] 08/13/2024 Teresa Bandar Cellulitis L03.90 [facility] [address] [place] [address] 08/23/2024 Teresa Bandar Cellulitis L03.90 Assessments Encounter Date Diagnosis (ICD [...] until they are finished. You can use [id number] acetaminophen or ibuprofen if needed for pain. You can also use throat lozenges or gargle warm water to help with the sore throat. You are contagious until you have been on antibiotics for 24 hours. 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 You should follow up with your [...] weeks, worse to ER for eval, called 08/23/2024 Cellulitis (ICD-10 - L03.90) stop DMARD? pt states not better than when discharged hospital taking meds as prescribed change abx? discuss with Dr. Villatoro close monitoring, return to ER If worsens, fever, feeling ill pt defers ER visit now to reassess Plan Of Treatment Pending Test Test Name [...] Insured Coverage Start Date Coverage End Date [employer] [address] [place] [address] [id number] Cielo Ray Self - patient is [...] Wellness examination Z00.00 Surgical History Surgery Date(Month/Year) APPENDECTOMY CHOLECYSTECTOMY HYSTERECTOMY TOTAL Right Foot Surgery- neuroma taken out Hospitalization History Reason Date(Month/Year) cellulitis 09/07
--- OUTSIDE RECORDS SUMMARY | 2024-09-01 09:20 | XMS_ITS | CCD ---
Author Organization [facility] Care Team Providers Care Technical Service Specialist Name Role Phone TERESA DE Attending Unavailable [...] Unavailable SANTINO, TERESA Primary Care Unavailable AHMED, SRAAED Attending Unavailable AHMED, MOHAMMED Admitting Unavailable AHMED, MOHAMMED Consulting Unavailable SANTINO, TERESA Primary Care Unavailable SANTINO, TERESA Attending Unavailable SANTINO, TERESA Admitting Unavailable SANTINO, TERESA Consulting Unavailable SANTINO, TERESA Primary Care Unavailable SANTINO, TERESA Primary Care Unavailable AHMED, MOHAMMED Attending Unavailable VALENTEMED, MOHAMMED Admitting Unavailable NAWAF, MOHAMMED Consulting Unavailable Esdras Bnoilla Admitting Unavailable Esdras Bonilla Attending Unavailable Lola Hyde Primary Care Physician Santino CAI, Teresa Unavailable Paul Villatoro MD Primary Care Provider [phone] Dolce, Karolina R Attending Unavailable Dolce, [...] every six hours for pain HYDROcodone-aceta minophen ([place]) 5-325 MG tablet Indications: Metatarsal deformity, right [...] Surgical Pathology Reporton 03-19-2024 Surgical [place] [address]- Surgical Pathology Report Collected Date/Time: 03/15/2024 09:30 [...] and entirely submitted in one cassette. (DC) DC:[facility] Microscopic Description Microscopic examination performed unless gross only specified. This report was transcribed using voice recognition technology and might contain unintended computerized reinstatement clerk errors. Normal [facility] Comment on above: Performed By: #### [id number] #### [facility] [address] [place] [address] GERONIMO Antinuclear Antibodieson 06-22-2022 Antinuclear Abs, IFA Negative Normal . [facility] Comment on above: Result Comment: Nega tive <1:80 Borderline 1:80 Positive >1:80 ICAP nomenclature: AC-0 For more information about Hep-2 cell patterns use ANApatterns.org, the official website for the International Consensus on Antinuclear Antibody (GERONIMO) Patterns (ICAP). Performed at: [facility] [id number] Check Clerk: Charlie Arevalo PhD, Phone: [phone] Performed By: #### A DNA, C4, GERONIMO, CH50, C3, LOZOYA #### [facility] , Anti-Lozoya Antibodieson Anti-Lozoya Antibodies <0.2 Normal 0.0-0.9 [facility] Comment on above: Performed By: #### A DNA, C4, GERONIMO, CH50, C3, LOZOYA #### [facility] , Anti-dsDNA(DBL)Abon 06-23-19 Anti-dsDNA(DBL)Ab 1 Normal 0-9 [facility] Comment on above: Result Comment: Nega tive <5 Equivocal 5 - 9 Positive >9 Performed at: [facility] [id number] Check Clerk: Charlie Arevalo PhD, Phone: [phone] PERFORMED BY: [facility] [address] PATHOLOGIST HOME PLANNING CONSULTANT SALESPERSON EULALIA OLSEN M.D. Performed By: #### A DNA, C4, GERONIMO, CH50, C3, LOZOYA #### [facility] , C-Reactive Proteinon 023 C-Reactive Protein 1.1 mg/dL High 0.0-0.5 [facility] Comment on above: Result Comment: PERF ORMED BY: [address] [place] [address] PATHOLOGIST HOME PLANNING CONSULTANT SALESPERSON EULALIA OLSEN M.D. Performed By: #### A DNA, C4, GERONIMO, CH50, C3, LOZOYA #### [facility] , Complement C3on 06-22-2022 Complement C3 147 mg/dL Normal 82-167 [facility] Comment on above: Result Comment: Perf ormed at: [address] [id number] Check Clerk: Charlie Arevalo PhD, Phone: [phone] Performed By: #### A DNA, C4, GERONIMO, CH50, C3, LOZOYA #### [facility] , Complement C4on 06-22-2022 Complement C4 33 mg/dL Normal 12-38 [facility] Comment on above: Performed By: #### A DNA, C4, GERONIMO, CH50, C3, LOZOYA #### [facility] , Complement Total (CH50)on Complement Total (CH50) 55 Normal >41 [facility] Comment on above: Result Comment: Age [...] determine out of range values. Performed at: [facility] [address] [id number] Check Clerk: Charlie Arevalo PhD, Phone: [phone] PERFORMED BY: [address] [place] [address] PATHOLOGIST HOME PLANNING CONSULTANT SALESPERSON EULALIA OLSEN M.D. Performed By: #### A DNA, C4, GERONIMO, CH50, C3, LOZOYA #### [facility] , Complete Blood Count Auto Di ffon 06-22-2022 Basophils (Bld) [#/Vol] 0.1 10*3/uL Normal 0.0-0.2 [facility] Comment on above: Performed By: #### H BCAB, HBSAG, HCV RX PCR, HBSAB #### [facility] , #### ADDONUAPLUS, ESR, CBC, CMP, CRP #### [place] [address] [place] Basophils/100 WBC (Bld) 0.7 % Normal . [facility] Comment on above: Performed By: #### H BCAB, HBSAG, HCV RX PCR, HBSAB #### [facility] , #### ADDONUAPLUS, ESR, CBC, CMP, CRP #### [address] Eosinophils (Bld) [#/Vol] 0.3 10*3/uL Normal 0.0-0.45 [facility] Comment on above: Performed By: #### H BCAB, HBSAG, HCV RX PCR, HBSAB #### [facility] , #### ADDONUAPLUS, ESR, CBC, CMP, CRP #### [address] Eosinophils/100 WBC (Bld) 3.8 % Normal . [facility] Comment on above: Performed By: #### H BCAB, HBSAG, HCV RX PCR, HBSAB #### [facility] , #### ADDONUAPLUS, ESR, CBC, CMP, CRP #### [address] Erythrocyte distribution width (RBC) [Ratio] 13.7 % Normal 11.9-15.3 [facility] Comment on above: Performed By: #### H BCAB, HBSAG, HCV RX PCR, HBSAB #### [facility] , #### ADDONUAPLUS, ESR, CBC, CMP, CRP #### [address] Hematocrit (Bld) [Volume fraction] 39.4 % Normal 34.0-46.4 [facility] Comment on above: Performed By: #### H BCAB, HBSAG, HCV RX PCR, HBSAB #### [facility] , #### ADDONUAPLUS, ESR, CBC, CMP, CRP #### [address] Hemoglobin (Bld) [Mass/Vol] 13.0 g/dL Normal 11.8-15.4 [facility] Comment on above: Performed By: #### H BCAB, HBSAG, HCV RX PCR, HBSAB #### [facility] , #### ADDONUAPLUS, ESR, CBC, CMP, CRP #### [address] Lymphocytes (Bld) [#/Vol] 2.5 10*3/uL Normal 1.00-4.8 [facility] Comment on above: Performed By: #### H BCAB, HBSAG, HCV RX PCR, HBSAB #### [facility] , #### ADDONUAPLUS, ESR, CBC, CMP, CRP #### [address] Lymphocytes/100 WBC (Bld) 35.4 % Normal . [facility] Comment on above: Performed By: #### H BCAB, HBSAG, HCV RX PCR, HBSAB #### [facility] , #### ADDONUAPLUS, ESR, CBC, CMP, CRP #### [address] MCH (RBC) [Entitic mass] 31.3 pg Normal 24.7-34.3 [facility] Comment on above: Performed By: #### H BCAB, HBSAG, HCV RX PCR, HBSAB #### [facility] , #### ADDONUAPLUS, ESR, CBC, CMP, CRP #### [address] MCV (RBC) [Entitic vol] 94.7 fL Normal 80-100 [facility] Comment on above: Performed By: #### H BCAB, HBSAG, HCV RX PCR, HBSAB #### [facility] , #### ADDONUAPLUS, ESR, CBC, CMP, CRP #### [address] Mean Corpuscular HGB Conc 33.1 g/dL Normal 32.0-35.0 [facility] Comment on above: Performed By: #### H BCAB, HBSAG, HCV RX PCR, HBSAB #### [facility] , #### ADDONUAPLUS, ESR, CBC, CMP, CRP #### [address] Monocytes (Bld) [#/Vol] 0.3 10*3/uL Normal 0.0-0.8 [facility] Comment on above: Performed By: #### H BCAB, HBSAG, HCV RX PCR, HBSAB #### [facility] , #### ADDONUAPLUS, ESR, CBC, CMP, CRP #### [address] Monocytes/100 WBC (Bld) 4.7 % Normal . [facility] Comment on above: Performed By: #### H BCAB, HBSAG, HCV RX PCR, HBSAB #### [facility] , #### ADDONUAPLUS, ESR, CBC, CMP, CRP #### [address] Neutrophils (Bld) [#/Vol] 3.9 10*3/uL Normal 1.8-7.7 [facility] Comment on above: Performed By: #### H BCAB, HBSAG, HCV RX PCR, HBSAB #### [facility] , #### ADDONUAPLUS, ESR, CBC, CMP, CRP #### [address] Neutrophils/100 WBC (Bld) 55.4 % Normal . [facility] Comment on above: Performed By: #### H BCAB, HBSAG, HCV RX PCR, HBSAB #### [facility] , #### ADDONUAPLUS, ESR, CBC, CMP, CRP #### [address] NRBC% 0.0 /100{WBC} Normal 0-0.5 [facility] Comment on above: Performed By: #### H BCAB, HBSAG, HCV RX PCR, HBSAB #### [facility] , #### ADDONUAPLUS, ESR, CBC, CMP, CRP #### [address] Platelet mean volume (Bld) [Entitic vol] 7.5 fL Normal 6.3-10.7 [facility] Comment on above: Performed By: #### H BCAB, HBSAG, HCV RX PCR, HBSAB #### [facility] , #### ADDONUAPLUS, ESR, CBC, CMP, CRP #### [address] Platelets (Bld) [#/Vol] 299 10*3/uL Normal 150-450 [facility] Comment on above: Performed By: #### H BCAB, HBSAG, HCV RX PCR, HBSAB #### [facility] , #### ADDONUAPLUS, ESR, CBC, CMP, CRP #### [address] RBC (Bld) [#/Vol] 4.17 10*6/uL Normal 3.60-5.00 [facility] Comment on above: Performed By: #### H BCAB, HBSAG, HCV RX PCR, HBSAB #### [facility] , #### ADDONUAPLUS, ESR, CBC, CMP, CRP #### [facility] [address] WBC (Bld) [#/Vol] 7.1 10*3/uL Normal 3.8-11.6 [facility] Comment on above: Performed By: #### H BCAB, HBSAG, HCV RX PCR, HBSAB #### [facility] , #### ADDONUAPLUS, ESR, CBC, CMP, CRP #### [facility] [address] Comprehensive Metabolic Pane darshan 06-22-2022 Albumin [Mass/Vol] 4.4 g/dL Normal 3.5-5.7 [facility] Comment on above: Performed By: #### A DNA, C4, GERONIMO, CH50, C3, LOZOYA #### [facility] , Albumin/Globulin [Mass ratio] 1.6 {ratio} Normal [facility] Comment on above: Performed By: #### A DNA, C4, GERONIMO, CH50, C3, LOZOYA #### [facility] , ALP [Catalytic activity/Vol] 78 U/L Normal 34-104 [facility] Comment on above: Performed By: #### A DNA, C4, GERONIMO, CH50, C3, LOZOYA #### [facility] , ALT [Catalytic activity/Vol] 21 U/L Normal 7-52 [facility] Comment on above: Performed By: #### A DNA, C4, GERONIMO, CH50, C3, LOZOYA #### [facility] , Anion gap [Moles/Vol] 12.9 mmol/L Normal 6.0-15.0 [facility] Comment on above: Performed By: #### A DNA, C4, GERONIMO, CH50, C3, LOZOYA #### [facility] , AST [Catalytic activity/Vol] 24 U/L Normal 13-39 [facility] Comment on above: Performed By: #### A DNA, C4, GERONIMO, CH50, C3, LOZOYA #### [facility] , Bilirubin [Mass/Vol] 0.9 mg/dL Normal 0.3-1.0 [facility] Comment on above: Performed By: #### A DNA, C4, GERONIMO, CH50, C3, LOZOYA #### [facility] , Calcium [Mass/Vol] 9.0 mg/dL Normal 8.6-10.3 [facility] Comment on above: Performed By: #### A DNA, C4, GERONIMO, CH50, C3, LOZOYA #### [facility] , Chloride [Moles/Vol] 106 mmol/L Normal 98-107 [facility] Comment on above: Performed By: #### A DNA, C4, GERONIMO, CH50, C3, LOZOYA #### [facility] , CO2 [Moles/Vol] 25.2 mmol/L Normal 21.0-31.0 [facility] Comment on above: Performed By: #### A DNA, C4, GERONIMO, CH50, C3, LOZOYA #### [facility] , Creatinine [Mass/Vol] 0.79 mg/dL Normal 0.60-1.20 [facility] Comment on above: Performed By: #### A DNA, C4, GERONIMO, CH50, C3, LOZOYA #### [facility] , GFR/1.73 sq M.predicted MDRD (S/P/Bld) [Vol rate/Area] mL/min/{1.73_m2} [facility] Comment on above: Performed By: #### A DNA, C4, GERONIMO, CH50, C3, LOZOYA #### [facility] , Globulin (S) [Mass/Vol] 2.8 g/dL [facility] Comment on above: Performed By: #### A DNA, C4, GERONIMO, CH50, C3, LOZOYA #### [facility] , Glucose [Mass/Vol] 97 mg/dL Normal 70-100 [facility] Comment on above: Result Comment: Lynd om Glucose Reference Range is dependent on time and content of last meal. Glucose of more than 200 mg/dL in a nonstressed, ambulatory subject supports the diagnosis of Diabetes Mellitus. ADA recommended reference range Performed By: #### A DNA, C4, GERONIMO, CH50, C3, LOZOYA #### [facility] , Potassium [Moles/Vol] 4.1 mmol/L Normal 3.5-5.1 [facility] Comment on above: Performed By: #### A DNA, C4, GERONIMO, CH50, C3, LOZOYA #### [facility] , Protein [Mass/Vol] 7.2 g/dL Normal 6.4-8.9 [facility] Comment on above: Performed By: #### A DNA, C4, GERONIMO, CH50, C3, LOZOYA #### [facility] , Sodium [Moles/Vol] 140 mmol/L Normal 136-145 [facility] Comment on above: Performed By: #### A DNA, C4, GERONIMO, CH50, C3, LOZOYA #### [facility] , Urea nitrogen [Mass/Vol] 12 mg/dL Normal 7-25 [facility] Comment on above: Performed By: #### A DNA, C4, GERONIMO, CH50, C3, LOZOYA #### [facility] , Dipstick and Microscopicon 0 - Appearance (U) Clear Normal Clear [facility] Comment on above: Order Comment: Name Collection Type:: Clean-Voided Midstream Performed By: #### H BCAB, HBSAG, HCV RX PCR, HBSAB #### [facility] , #### ADDONUAPLUS, ESR, CBC, CMP, CRP #### [facility] [address] Bacteria,Urine 1+ High None Seen [facility] Comment on above: Order Comment: Name Collection Type:: Clean-Voided Midstream Performed By: #### H BCAB, HBSAG, HCV RX PCR, HBSAB #### [facility] , #### ADDONUAPLUS, ESR, CBC, CMP, CRP #### [address] Bilirubin,Urine Negative Normal Negative [facility] Comment on above: Order Comment: Name Collection Type:: Clean-Voided Midstream Performed By: #### H BCAB, HBSAG, HCV RX PCR, HBSAB #### [facility] , #### ADDONUAPLUS, ESR, CBC, CMP, CRP #### [address] Color (U) Yellow Normal Yellow [facility] Comment on above: Order Comment: Name Collection Type:: Clean-Voided Midstream Performed By: #### H BCAB, HBSAG, HCV RX PCR, HBSAB #### [facility] , #### ADDONUAPLUS, ESR, CBC, CMP, CRP #### [address] Glucose Ql (U) Normal Normal Normal [facility] Comment on above: Order Comment: Name Collection Type:: Clean-Voided Midstream Performed By: #### H BCAB, HBSAG, HCV RX PCR, HBSAB #### [facility] , #### ADDONUAPLUS, ESR, CBC, CMP, CRP #### [address] Hyaline Casts,Urine 0-8 Normal 0-8 [facility] Comment on above: Order Comment: Name Collection Type:: Clean-Voided Midstream Result Comment: PERF ORMED BY: [place] [address] PATHOLOGIST HOME PLANNING CONSULTANT SALESPERSON EULALIA OLSEN M.D. Performed By: #### H BCAB, HBSAG, HCV RX PCR, HBSAB #### [facility] , #### ADDONUAPLUS, ESR, CBC, CMP, CRP #### [address] Ketones Ql (U) Negative Normal Negative [facility] Comment on above: Order Comment: Name Collection Type:: Clean-Voided Midstream Performed By: #### H BCAB, HBSAG, HCV RX PCR, HBSAB #### [facility] , #### ADDONUAPLUS, ESR, CBC, CMP, CRP #### [facility] [address] [place] [address] Leukocyte esterase Test strip Ql (U) Negative Normal Negative [facility] Comment on above: Order Comment: Name Collection Type:: Clean-Voided Midstream Performed By: #### H BCAB, HBSAG, HCV RX PCR, HBSAB #### [facility] , #### ADDONUAPLUS, ESR, CBC, CMP, CRP #### [facility] [address] [place] [address] Nitrite,Urine Negative Normal Negative [facility] Comment on above: Order Comment: Name Collection Type:: Clean-Voided Midstream Performed By: #### H BCAB, HBSAG, HCV RX PCR, HBSAB #### [facility] , #### ADDONUAPLUS, ESR, CBC, CMP, CRP #### [facility] [address] [place] [address] Occult Blood,Urine Negative Normal Negative [facility] Comment on above: Order Comment: Name Collection Type:: Clean-Voided Midstream Performed By: #### H BCAB, HBSAG, HCV RX PCR, HBSAB #### [facility] , #### ADDONUAPLUS, ESR, CBC, CMP, CRP #### [facility] [address] [place] [address] pH (U) 5.5 [pH] Normal 5.0-9.0 [facility] Comment on above: Order Comment: Name Collection Type:: Clean-Voided Midstream Performed By: #### H BCAB, HBSAG, HCV RX PCR, HBSAB #### [facility] , #### ADDONUAPLUS, ESR, CBC, CMP, CRP #### [facility] [address] Protein,Urine Negative Normal Negative [facility] Comment on above: Order Comment: Name Collection Type:: Clean-Voided Midstream Performed By: #### H BCAB, HBSAG, HCV RX PCR, HBSAB #### [facility] , #### ADDONUAPLUS, ESR, CBC, CMP, CRP #### [facility] [address] [place] [address] RBC,Urine 3-4 Normal 0-4 [facility] Comment on above: Order Comment: Name Collection Type:: Clean-Voided Midstream Performed By: #### H BCAB, HBSAG, HCV RX PCR, HBSAB #### [facility] , #### ADDONUAPLUS, ESR, CBC, CMP, CRP #### [facility] [address] [place] [address] Specificy Severance,Urine 1.021 Normal 1.001-1.030 [facility] Comment on above: Order Comment: Name Collection Type:: Clean-Voided Midstream Performed By: #### H BCAB, HBSAG, HCV RX PCR, HBSAB #### [facility] , #### ADDONUAPLUS, ESR, CBC, CMP, CRP #### [facility] [address] [place] [address] Squamous Epithelial Cell,Urine 5-9 High 0-2 [facility] Comment on above: Order Comment: Name Collection Type:: Clean-Voided Midstream Performed By: #### H BCAB, HBSAG, HCV RX PCR, HBSAB #### [facility] , #### ADDONUAPLUS, ESR, CBC, CMP, CRP #### [facility] [address] [place] [address] Urobilinogen,Urine Normal Normal Normal [facility] Comment on above: Order Comment: Name Collection Type:: Clean-Voided Midstream Performed By: #### H BCAB, HBSAG, HCV RX PCR, HBSAB #### [facility] , #### ADDONUAPLUS, ESR, CBC, CMP, CRP #### [facility] [address] WBC,Urine 5-9 High 0-4 [facility] Comment on above: Order Comment: Name Collection Type:: Clean-Voided Midstream Performed By: #### H BCAB, HBSAG, HCV RX PCR, HBSAB #### [facility] , #### ADDONUAPLUS, ESR, CBC, CMP, CRP #### [facility] [address] Erythrocyte Sedimentation Ra raymond 06-22-2022 ESR (Bld) [Velocity] 36 mm/h High 0-29 [facility] Comment on above: Result Comment: PERF ORMED BY: [place] [address] PATHOLOGIST HOME PLANNING CONSULTANT SALESPERSON EULALIA OLSEN M.D. Performed By: #### A DNA, C4, GERONIMO, CH50, C3, LOZOYA #### [facility] , Hep C Ab wRfx to Qnt PCRon 0 06-22-2022 Hepatitis C Virus Antibody Non-Reactive Normal Non Reactive [facility] Comment on above: Performed By: #### A DNA, C4, GERONIMO, CH50, C3, LOZOYA #### [facility] , Interpretation Hepatitis C Normal . [facility] Comment on above: Result Comment: Not infected with HCV unless early or acute infection is suspected (which may be delayed in an immunocompromised individual), or other evidence exists to indicate HCV infection. Performed By: #### A DNA, C4, GERONIMO, CH50, C3, LOZOYA #### [facility] , Hepatitis B Core Antibodyon 06-22-2022 Hepatitis B Core Antibody Negative Normal Negative [facility] Comment on above: Result Comment: Perf ormed at: - [facility] [address] [id number] Check Clerk: Charlie Arevalo PhD, Phone: [phone] Performed By: #### A DNA, C4, GERONIMO, CH50, C3, LOZOYA #### [facility] , Hepatitis B Surface Antibody on 06-22-2022 Hepatitis B Surface Antibody Non-Reactive Normal . [facility] Comment on above: Result Comment: Non Reactive: Inconsistent with immunity, less than 10 mIU/mL Reactive: Consistent with immunity, greater than 9.9 mIU/mL Performed By: #### A DNA, C4, GERONIMO, CH50, C3, LOZOYA #### [facility] , Hepatitis B Surface Antigeno n 06-22-2022 HBsAg Screen Negative Normal Negative [facility] Comment on above: Result Comment: PERF ORMED BY: [place] [address] PATHOLOGIST HOME PLANNING CONSULTANT SALESPERSON EULALIA OLSEN M.D. Performed By: #### A DNA, C4, GERONIMO, CH50, C3, LOZOYA #### [facility] , XR chest 2V*on 06-22-2022 XR chest 2V* [facility] [place] [address] XRay Report Signed Patient: Cielo Ray MR#: [id number] 66 : 1965 Acct:[id number] Age/Sex: 56 / F ADM Date: 06/22/22 Loc: ICXD Room: Type: [facility] Attending Dr: Esdras Bonilla MD Copies to: [...] Vitale Jr., D.O.06/22/2022 4:08 PM Dictation Location: [place] [address] Transcribed By: [facility] 06/22/22 1608 Dictated By: Cr Vitale Jr, DO 06/22/22 1608 Signed By: 06/22/22 1608 [facility] XR hand BI 2Von 06-22-2022 XR hand BI 2V [facility] [place] [address] [place] [address] XRay Report Signed Patient: Cielo Ray MR#: [id number] 66 : 1965 Acct:[id number] Age/Sex: 56 / F ADM Date: 06/22/22 Loc: ICXD Room: Type: [facility] Attending Dr: Esdras Bonilla MD Copies to: Esdras Bonilla MD Ordering Provider: sEdras Bonilla MD Date of Service: 06/22/22 XR/XR [...] Vitale Jr., D.OHong06/22/2022 4:12 PM Dictation Location: [place] [address] Transcribed By: [facility] 06/22/22 161 Dictated By: Cr Vitale Jr, DO 06/22/22 1608 Signed By: 06/22/22 1612 [facility] VC CONSULT FOLLOWUPon 2021 VC CONSULT FOLLOWUP Patient: JEAN PIERRE RAY Exam Date: 02/02/2022 : 1965 Gender:F Ordering : DR KEILA DE LA FUENTE M.D. Admission #: [id number] Family : Order #: [id number] CLICK HERE TO VIEW EXAM RADIOLOGY REPORT [...] Perla M.D. on 02/02/2022 at 15:55 Normal [facility] VC EXT VENOUS LT LIMITEDon 1 04-05-2021 VC EXT VENOUS LT LIMITED Patient: CIELO RAY Exam Date: 02/02/2022 : 1965 Gender:F Ordering : DR KEILA DE LA FUENTE M.D. Admission #: [id number] Family : Order #: [id number] CLICK HERE TO VIEW EXAM RADIOLOGY REPORT [...] Perla M.D. on 02/02/2022 at 15:51 Normal [facility] VC ENDOVENOUS ABL 1ST V LTon 01-26-2022 VC ENDOVENOUS ABL 1ST V LT Patient: CIELO RAY Exam Date: 01/26/2022 : 1965 Gender:F Ordering : DR KEILA DE LA FUENTE M.D. Admission #: [id number] Family : Order #: [id number] CLICK HERE TO VIEW EXAM RADIOLOGY REPORT [...] MD on 01/26/2022 at 16:08 Normal [facility] ALBUMINon 01-14-2022 Albumin [Mass/Vol] 3.6 g/dL Normal 3.4-5.0 [facility] Comment on above: Performed By: #### C JENELLE, ALB, ALT, CRP ####[facility] [address] [place] [address]Dr. Wilbert Gomez CBC AUTO DIFFon 01-14-2022 BASO # 0.0 103/ul Normal 0.0-0.1 [facility] Comment on above: Performed By: #### C BC #### [facility] [address] [place] [address] Dr. Wilbert Gomez Basophils/100 WBC (Bld) 0.5 % Normal 0.2-2.0 [facility] Comment on above: Performed By: #### C BC #### [facility] [address] [place] [address] [address] Wilbert Gomez EO # 0.3 103/ul Normal 0.0-0.7 [facility] Comment on above: Performed By: #### C BC #### [facility] [address] [place] [address] [address] Wilbert Gomez Eosinophils/100 WBC (Bld) 4.2 % Normal 0.9-7.0 [facility] Comment on above: Performed By: #### C BC #### [facility] [address] [place] [address] [address] Wilbert Gomez Erythrocyte distribution width (RBC) [Ratio] 13.6 % Normal 11.0-15.0 [facility] Comment on above: Performed By: #### C BC #### [facility] [address] [place] [address] Dr. Wilbert Gomez Hematocrit (Bld) [Volume fraction] 36.8 % Normal 36.0-48.0 [facility] Comment on above: Performed By: #### C BC #### [facility] [address] [place] [address] Dr. Wilbert Gomez Hemoglobin (Bld) [Mass/Vol] 12.1 g/dL Normal 12.0-16.0 [facility] Comment on above: Performed By: #### C BC #### [facility] [address] [place] [address] Dr. Wilbert Gomez IG # 0.02 10e3/ul Normal 0.00-0.03 [facility] Comment on above: Performed By: #### C BC #### [facility] [address] [place] [address] Dr. Wilbert Gomez IG % 0.3 % Normal 0.0-0.5 [facility] Comment on above: Performed By: #### C BC #### [facility] [address] [place] [address] Dr. Wilbert Gomez LYMPH # 2.6 103/ul Normal 1.2-3.8 [facility] Comment on above: Performed By: #### C BC #### [facility] [address] [place] [address] Dr. Wilbert Gomez Lymphocytes/100 WBC (Bld) 35.7 % Normal 20.5-60.0 [facility] [facility] Comment on above: Performed By: #### C BC #### [facility] [address] [place] [address] Dr. Wilbert Gomez MANUAL DIFF REQ NO Normal [facility] Comment on above: Performed By: #### C BC #### [facility] [address] [place] [address] Dr. Wilbert Gomez MCH (RBC) [Entitic mass] 31.7 pg Normal 26.7-34.0 The [facility] Comment on above: Performed By: #### C BC #### [facility] [address] [place] [address] Dr. Wilbert Gomez MCHC (RBC) [Mass/Vol] 32.9 g/dL Normal 29.9-35.2 The [facility] Comment on above: Performed By: #### C BC #### [facility] [address] [place] [address] Dr. Wilbert Gomez MCV (RBC) [Entitic vol] 96.3 fL Normal 81.0-99.0 [facility] Comment on above: Performed By: #### C BC #### [facility] [address] [place] [address] Dr. Wilbert Gomez MONO # 0.5 103/ul Normal 0.3-0.8 The [facility] Comment on above: Performed By: #### C BC #### [facility] [address] [place] [address] Dr. Wilbert Gomez Monocytes/100 WBC (Bld) 6.2 % Normal 1.7-12.0 [facility] Comment on above: Performed By: #### C BC #### [facility] [address] [place] [address] Dr. Wilbert Gomez NEUT # 3.9 103/ul Normal 1.4-6.5 The [facility] Comment on above: Performed By: #### C BC #### [facility] [address] [place] [address] Dr. Wilbert Gomez Neutrophils/100 WBC (Bld) 53.1 % Normal 43.0-75.0 The [facility] Comment on above: Performed By: #### C BC #### [facility] [address] [place] [address] Dr. Wilbert Gomez Platelet mean volume (Bld) [Entitic vol] 8.9 fL Critically low 9.5-13.5 The [facility] Comment on above: Performed By: #### C BC #### [facility] [address] [address] [address] Wilbert Gomez PLT 275 103/ul Normal 150-450 The [facility] Comment on above: Performed By: #### C BC #### [facility] [address] [address] [address] Wilbert Gomez RBC 3.82 106/ul Critically low 4.20-5.40 The [facility] Comment on above: Performed By: #### C BC #### [facility] [address] [address] [address] Wilbert Gomez WBC 7.3 103/ul Normal 4.0-11.0 The [facility] Comment on above: Performed By: #### C BC #### [facility] [address] [address] [address] Wilbert Gomez CREATININEon 01-14-2022 Creatinine [Mass/Vol] 0.79 mg/dL Normal 0.55-1.02 [facility] Comment on above: Performed By: #### C JENELLE, ALB, ALT, CRP ####[facility] [address] [address]Dr. Wilbert Gomez EGFR-AF YEMENI >60 Normal >=60 The [facility] Comment on above: Performed By: #### C JENELLE, ALB, ALT, CRP ####[facility] [address] [id number]. Wilbert Gomez EGFR-NON AF YEMENI >60 Normal >=60 The [facility] Comment on above: Performed By: #### C JENELLE, ALB, ALT, CRP ####[facility] [address] [id number] Gomez CRPon 01-14-2022 CRP 1.1 mg/dL Critically high <=1.0 [facility] Comment on above: Performed By: #### C JENELLE, ALB, ALT, CRP ####[facility] [address] [address]DrHong Gomez SED RATE WESTERGRENon 2021 SED RATE 37 mm/hr Critically high <=30 [facility] Comment on above: Performed By: #### C BC #### [facility] [address] [place], [place] [address] Dr. Wilbert Gomez [facility] 01-14-2022 ALT [Catalytic activity/Vol] 30 U/L Normal 14-59 [facility] Comment on above: Performed By: #### C JENELLE, ALB, ALT, CRP ####[facility] [address] [place], [place] [address]QhDr. Wilbert Gomez VC CONSULT FOLLOWUPon 2021 VC CONSULT FOLLOWUP Patient: JEAN PIERRE RAY Exam Date: 12/29/2021 : 1965 Gender:F Ordering : DR KEILA DE LA FUENTE M.D. Admission #: [id number] Family : Order #: [id number] CLICK HERE TO VIEW EXAM RADIOLOGY REPORT [...] MD on 12/29/2021 at 15:41 Normal The [facility] VC EXT VENOUS LT LIMITEDon 1 1-15-2022 VC EXT VENOUS LT LIMITED Patient: CIELO RAY Exam Date: 12/29/2021 : 1965 Gender:F Ordering : DR KEILA DE LA FUENTE M.D. Admission #: [id number] Family : Order #: [id number] CLICK HERE TO VIEW EXAM RADIOLOGY REPORT [...] Fuente MD on 12/29/2021 at 15:34 Normal [facility] VC ENDOVENOUS ABL 1ST V LTon 12-22-2021 VC ENDOVENOUS ABL 1ST V LT Patient: CIELO RAY Exam Date: 12/22/2021 : 1965 Gender:F Ordering : DR KEILA DE LA FUENTE M.D. Admission #: [id number] Family : Order #: [id number] CLICK HERE TO VIEW EXAM RADIOLOGY REPORT PROCEDURE: VEIN CENTER ENDOVENOUS ABLATION FIRST VEIN LEFT GREAT SAPHENOUS VEIN COMPARISON: None. INDICATIONS: Pain co-occurrent and due to varicose veins of bilateral legs I83.813 OPERATIVE REPORT: The risks and benefits of the procedure had been previously discussed, and were rediscussed at length. Informed written consent was obtained by and aDmeon neri. Time out procedure was performed. The [...] MD on 12/22/2021 at 16:10 Normal The [facility] VC COMP CONSULTATIONon 11-30 VC COMP CONSULTATION Patient: KARINA RAY Exam Date: 11/30/2021 : 1965 Gender:F Ordering : DR KEILA DE LA FUENTE M.D. Admission #: [id number] Family : Order #: [id number] CLICK HERE TO VIEW EXAM RADIOLOGY REPORT [...] great saphenous and small saphenous veins. Bilateral forming machine upkeep mechanic helper veins and incompetent branch saphenous varicosities. PHYSICAL [...] arterial disease 5. CEAP: C2, EC, AP, MT PLAN: 1. Continued use of compression stockings 2. Elevated legs and increased physical activity symptomatic relief 3. Endovenous laser ablation of left great saphenous left small saphenous veins, left and right forming machine upkeep mechanic helper veins. 4. Microfoam chemical ablation of dilated, incompetent branch saphenous varicosities within right and left lower extremities Nurse notes, history and physical were reviewed and confirmed, see attached forms. The nurse was present throughout the physical exam and consultation Dictated by: Hayden Perla M.D. on 12/01/2021 at 08:06 Approved by: Hayden Perla M.D. on 12/01/2021 at 09:12 Normal [facility] VC VENOUS REFLUX MICHELLE LMTon 1 VC VENOUS REFLUX MICHELLE LMT Patient: CIELO RAY Exam Date: 11/30/2021 : 1965 Gender:F Ordering : DR KEILA DE LA FUENTE M.D. Admission #: [id number] Family : Order #: [id number] CLICK HERE TO VIEW EXAM RADIOLOGY REPORT [...] treated GSV. Incomptent varicose vein associated with forming machine upkeep mechanic helper distal thigh measures 6.2 mm with 2.6s [...] thrombus. Compressibility: Normal. Flow: Deep venous reflux. Sprinkler Tender: Two medial/distal lower leg perfs measures 3.9 [...] and small saphenous veins. 2. Dilated, incompetent forming machine upkeep mechanic helper veins and branch saphenous varicosities bilaterally. 3. Consultation for endovenous ablation is recommended. Dictated by: Hayden Perla M.D. on 11/30/2021 at 15:51 Approved by: Hayden Perla M.D. on 11/30/2021 at 15:53 Normal The [facility] INSULINon 10-09-2021 Insulin 11.9 uIU/mL Normal 2.6-24.9 The [facility] Comment on above: Performed By: #### I NSULIN ####[facility] [address] [address]Dr. Wilbert Gomez T4, T3U, FTI LABCORPon 10-09 Free Thyroxine Index 2.1 Normal 1.2-4.9 [facility] Comment on above: Performed By: #### T HYLC ####[facility] [address] [address]Dr. Justinegonzalo Gomez T3 Uptake 29 % Normal 24-39 [facility] Comment on above: Performed By: #### T HYLC ####[facility] [address] [address]Dr. Wilbert Gomez T4 [Mass/Vol] 7.4 ug/dL Normal 4.5-12.0 [facility] Comment on above: Performed By: #### T HYLC ####[facility] [address] [id number]. Wilbert Gomez GLYCOHEMOGLOBIN A1Con 2021 ADA RECOMMENDATION SEE BELOW Normal [facility] Comment on above: Result Comment: ADA RECOMMENDED LIMIT 4.0 - 6.0 ADA THERAPEUTIC TARGET < 7.0 ACTION SUGGESTED > 7.0 Performed By: #### A 1C ####[facility] [address] [address]Dr. Justinegonzalo Gomez Glucose [Mass/Vol] 111 mg/dL Normal [facility] Comment on above: Performed By: #### A 1C ####[facility] [address] [address]Dr. Justinegonzalo Gomez HbA1c (Bld) [Mass fraction] 5.5 % Normal 4.5-6.2 The [facility] Comment on above: Performed By: #### A 1C ####[facility] [address] [place], [place] [address]UdHong Gomez IRONon 10-08-2021 Iron [Mass/Vol] 67.0 ug/dL Normal 50.0-170.0 [facility] Comment on above: Performed By: #### I SOLA #### [facility] [address] [place], [place] [address] Dr. Wilbert Gomez LIPID PROFILEon 10-08-2021 CHOL-HDL RATIO NORM SEE BELOW Normal [facility] Comment on above: Result Comment: 3.3 - 4.4 LOW RISK 4.4 - 7.1 AVERAGE RISK 7.1 - 11.0 MODERATE RISK >11.0 HIGH RISK Performed By: #### L IPID, TSH, CMP ####[facility] [address] [place], [place] [address]Cb. Wilbert Gomez Cholesterol [Mass/Vol] 205 mg/dL Critically high <=200 [facility] Comment on above: Performed By: #### L IPID, TSH, CMP ####[facility] [address] [id number]. Wilbert Gomez Cholesterol in HDL [Mass/Vol] 81 mg/dL Critically high 40-60 [facility] Comment on above: Performed By: #### L IPID, TSH, CMP ####[facility] [address] [place], [place] [address]Ic. Wilbert Gomez Cholesterol in LDL [Mass/Vol] 108.0 mg/dL Normal [facility] Comment on above: Performed By: #### L IPID, TSH, CMP ####[facility] [address] [place], [place] [address]Ay. Wilbert Gomez Cholesterol.total/Ch olesterol in HDL [Mass ratio] 2.5 {ratio} Normal [facility] Comment on above: Performed By: #### L IPID, TSH, CMP ####[facility] [address] [place], [place] [address]Xa. Wilbert Gomez HDL NORMAL > or = 60 mg/dl - LO W CARDIOVASCULAR RISK <40 mg/dl - HIGH CARDIOVASCULAR RISK Normal [facility] Comment on above: Performed By: #### L IPID, TSH, CMP ####[facility] [address] [address]Dr. Wilbert Gomez LDL CALC NORMAL SEE BELOW Normal [facility] Comment on above: Result Comment: <100 mg/dl OPTIMAL 100 - 129 mg/dl NEAR OR ABOVE OPTIMAL 130 - 159 mg/dl BORDERLINE HIGH 160 - 189 mg/dl HIGH >190 mg/dl VERY HIGH Performed By: #### L IPID, TSH, CMP ####[facility] [address] [address]Dr. Wilbert Gomez Triglyceride [Mass/Vol] 80 mg/dL Normal <=150 The [facility] Comment on above: Performed By: #### L IPID, TSH, CMP ####[facility] [address] [address]Dr. Wilbert Gomez VLDL CALC 16.0 mg/dL Normal [facility] Comment on above: Performed By: #### L IPID, TSH, CMP ####[facility] [address] [address]Dr. Wilbert Gomez PROF 14(COMP METB)on 022 Albumin [Mass/Vol] 3.6 g/dL Normal 3.4-5.0 [facility] Comment on above: Performed By: #### L IPID, TSH, CMP ####[facility] [address] [address]Dr. Wilbert Gomez Albumin/Globulin [Mass ratio] 1.0 {ratio} Normal [facility] Comment on above: Performed By: #### L IPID, TSH, CMP ####[facility] [address] [address]Dr. Wilbert Gomez ALP [Catalytic activity/Vol] 86 U/L Normal 46-116 The [facility] Comment on above: Performed By: #### L IPID, TSH, CMP ####[facility] [address] [address]Dr. Wilbert Gomez ALT [Catalytic activity/Vol] 27 U/L Normal 14-59 [facility] Comment on above: Performed By: #### L IPID, TSH, CMP ####[facility] [address] [address]Dr. Wilbert Gomez Anion gap [Moles/Vol] 12.1 mmol/L Normal [facility] Comment on above: Performed By: #### L IPID, TSH, CMP ####[facility] [address] [address]Dr. Wilbert Gomez AST [Catalytic activity/Vol] 23 U/L Normal 15-37 The [facility] Comment on above: Performed By: #### L IPID, TSH, CMP ####[facility] [address] [address]Dr. Wilbert Gomez Bilirubin [Mass/Vol] 0.6 mg/dL Normal 0.2-1.0 [facility] Comment on above: Performed By: #### L IPID, TSH, CMP ####[facility] [address] [place], [place] [address]Dr. Wilbert Gomez Calcium [Mass/Vol] 8.7 mg/dL Normal 8.5-10.1 [facility] Comment on above: Performed By: #### L IPID, TSH, CMP ####[facility] [address] [place], [place] [address]Dr. Wilbert Gomez Chloride [Moles/Vol] 104 mmol/L Normal 98-107 The [facility] Comment on above: Performed By: #### L IPID, TSH, CMP ####[facility] [address] [address]Dr. Wilbert Gomez CO2 [Moles/Vol] 26.8 mmol/L Normal 21.0-32.0 The [facility] Comment on above: Performed By: #### L IPID, TSH, CMP ####[facility] [address] [place], [place] [address]Dr. Wilbert Gomez Creatinine [Mass/Vol] 0.85 mg/dL Normal 0.55-1.02 [facility] Comment on above: Performed By: #### L IPID, TSH, CMP ####[facility] [address] [place], [place] [address]Dr. Wilbert Gomez EGFR-AF YEMENI >60 Normal >=60 The [facility] Comment on above: Performed By: #### L IPID, TSH, CMP ####[facility] [address] [address]Dr. Wilbert Gomez EGFR-NON AF YEMENI >60 Normal >=60 The [facility] Comment on above: Performed By: #### L IPID, TSH, CMP ####[facility] [address] [address]Dr. Wilbert Gomez Globulin (S) [Mass/Vol] 3.7 g/dL Normal The [facility] Comment on above: Performed By: #### L IPID, TSH, CMP ####[facility] [address] [address]Dr. Wilbert Gomez Glucose [Mass/Vol] 92 mg/dL Normal 74-106 [facility] Comment on above: Performed By: #### L IPID, TSH, CMP ####[facility] [address] [address]Dr. Wilbert Gomez Potassium [Moles/Vol] 3.9 mmol/L Normal 3.5-5.1 The [facility] Comment on above: Performed By: #### L IPID, TSH, CMP ####[facility] [address] [address]Dr. Wilbert Gomez Protein [Mass/Vol] 7.3 g/dL Normal 6.4-8.2 [facility] Comment on above: Performed By: #### L IPID, TSH, CMP ####[facility] [address] [address]Dr. Wilbert Gomez Sodium [Moles/Vol] 139 mmol/L Normal 136-145 [facility] Comment on above: Performed By: #### L IPID, TSH, CMP ####[facility] [address] [address]Dr. Wilbert Gomez Urea nitrogen [Mass/Vol] 10.0 mg/dL Normal 7.0-18.0 The [facility] Comment on above: Performed By: #### L IPID, TSH, CMP ####[facility] [address] [place] [id number] Gomez Urea nitrogen/Creatinine [Mass ratio] 11.8 mg/mg Normal [facility] Comment on above: Performed By: #### L IPID, TSH, CMP ####[facility] [address] [address]Dr. Wilbert Gomez TSHon 10-08-2021 TSH 0.731 uIU/mL Normal 0.358-3.740 [facility] Comment on above: Performed By: #### L IPID, TSH, CMP ####[facility] [address] [place] [address]DrHong Gomez ALBUMINon 07-30-2021 Albumin [Mass/Vol] 3.8 g/dL Normal 3.4-5.0 [facility] Comment on above: Performed By: #### C JENELLE, ALT, CRP, ALB #### [facility] [address] [place] [address] Dr. Wilbert Gomez CBC AUTO DIFFon 07-30-2021 BASO # 0.0 103/ul Normal 0.0-0.1 [facility] Comment on above: Performed By: #### C BC #### [facility] [address] [place] [address] Dr. Wilbert Gomez Basophils/100 WBC (Bld) 0.6 % Normal 0.2-2.0 [facility] Comment on above: Performed By: #### C BC #### [facility] [address] [place] [address] Dr. Wilbert Gomez EO # 0.2 103/ul Normal 0.0-0.7 [facility] Comment on above: Performed By: #### C BC #### [facility] [address] [place] [address] Dr. Wilbert Gomez Eosinophils/100 WBC (Bld) 4.1 % Normal 0.9-7.0 [facility] Comment on above: Performed By: #### C BC #### [facility] [address] [place] [address] Dr. Wilbert Gomez Erythrocyte distribution width (RBC) [Ratio] 14.0 % Normal 11.0-15.0 [facility] Comment on above: Performed By: #### C BC #### [facility] [address] [place] [address] Dr. Wilbert Gomez Hematocrit (Bld) [Volume fraction] 37.4 % Normal 36.0-48.0 [facility] Comment on above: Performed By: #### C BC #### [facility] [address] [place] [address] Dr. Wilbert Gomez Hemoglobin (Bld) [Mass/Vol] 12.2 g/dL Normal 12.0-16.0 [facility] Comment on above: Performed By: #### C BC #### [facility] [address] [place] [address] Dr. Wilbert Gomez IG # 0.01 10e3/ul Normal 0.00-0.03 [facility] Comment on above: Performed By: #### C BC #### [facility] [address] [place] [address] Dr. Wilbert Gomez IG % 0.2 % Normal 0.0-0.5 [facility] Comment on above: Performed By: #### C BC #### [facility] [address] [place] [address] Dr. Wilbert Gomez LYMPH # 1.6 103/ul Normal 1.2-3.8 [facility] Comment on above: Performed By: #### C BC #### [facility] [address] [place] [address] Dr. Wilbert Gomez Lymphocytes/100 WBC (Bld) 33.4 % Normal 20.5-60.0 The [facility] Comment on above: Performed By: #### C BC #### [facility] [address] [place] [address] Dr. Wilbert Gomez MANUAL DIFF REQ NO Normal [facility] Comment on above: Performed By: #### C BC #### [facility] [address] [place] [address] Dr. Wilbert Gomez MCH (RBC) [Entitic mass] 31.9 pg Normal 26.7-34.0 [facility] Comment on above: Performed By: #### C BC #### [facility] [address] [place] [address] Dr. Wilbert Gomez MCHC (RBC) [Mass/Vol] 32.6 g/dL Normal 29.9-35.2 [facility] Comment on above: Performed By: #### C BC #### [facility] [address] [place] [address] Dr. Wilbert Gomez MCV (RBC) [Entitic vol] 97.7 fL Normal 81.0-99.0 [facility] Comment on above: Performed By: #### C BC #### [facility] [address] [place] [address] Dr. Wilbert Gomez MONO # 0.5 103/ul Normal 0.3-0.8 [facility] Comment on above: Performed By: #### C BC #### [facility] [address] [place] [address] Dr. Wilbert Gomez Monocytes/100 WBC (Bld) 11.0 % Normal 1.7-12.0 [facility] Comment on above: Performed By: #### C BC #### [facility] [address] [place] [address] Dr. Wilbert Gomez NEUT # 2.4 103/ul Normal 1.4-6.5 [facility] Comment on above: Performed By: #### C BC #### [facility] [address] [place] [address] Dr. Wilbert Gomez Neutrophils/100 WBC (Bld) 50.7 % Normal 43.0-75.0 The [facility] Comment on above: Performed By: #### C BC #### [facility] [address] [place] [address] Dr. Wilbert Gomez Platelet mean volume (Bld) [Entitic vol] 8.8 fL Critically low 9.5-13.5 [facility] Comment on above: Performed By: #### C BC #### [facility] [address] [place] [address] Dr. Wilbert Gomez PLT 228 103/ul Normal 150-450 The [facility] Comment on above: Performed By: #### C BC #### [facility] [address] [address] [address] Wilbert Gomez RBC 3.83 106/ul Critically low 4.20-5.40 [facility] Comment on above: Performed By: #### C BC #### [facility] [address] [place] [address] Dr. Wilbert Gomez WBC 4.8 103/ul Normal 4.0-11.0 [facility] Comment on above: Performed By: #### C BC #### [facility] [address] [place] [address] Dr. Wilbert Gomez CREATININEon 07-30-2021 Creatinine [Mass/Vol] 0.87 mg/dL Normal 0.55-1.02 [facility] Comment on above: Performed By: #### C JENELLE, ALT, CRP, ALB #### [facility] [address] [place] [address] Dr. Wilbert Gomez EGFR-AF YEMENI >60 Normal >=60 [facility] Comment on above: Performed By: #### C JENELLE, ALT, CRP, ALB #### [facility] [address] [place] [address] Dr. Wilbert Gomez EGFR-NON AF YEMENI >60 Normal >=60 [facility] Comment on above: Performed By: #### C JENELLE, ALT, CRP, ALB #### [facility] [address] [place] [address] Dr. Wilbert Gomez CRPon 07-30-2021 CRP 1.5 mg/dL Critically high <=1.0 [facility] Comment on above: Performed By: #### C JENELLE, ALT, CRP, ALB #### [facility] [address] [place] [address] Dr. Wilbert Gomez SED RATE GOLDENERGREN 2021 SED RATE 14 mm/hr Normal <=30 The [facility] Comment on above: Performed By: #### S EDR #### [facility] [address] [place] [address] Dr. Wilbert Gomez [facility] 07-30-2021 ALT [Catalytic activity/Vol] 38 U/L Normal 14-59 [facility] Comment on above: Performed By: #### C JENELLE, ALT, CRP, ALB #### [facility] [address] [address] [address] Wilbert Gomez MG MAMM SCREEN 3D MICHELLE CADon 07-16-2021 MG MAMM SCREEN 3D MICHELLE CAD Patient: CIELO RAY Exam Date: 07/16/2021 : 1965 Gender:F Ordering : [facility] Admission #: [id number] Family : Order #: [id number] CLICK HERE TO VIEW EXAM RADIOLOGY REPORT [...] breast cancer at age 55. LOCATION: The [facility] BREAST COMPOSITION: Heterogeneously dense,which may [...] M.D. on 07/17/2021 at 09:49 Normal [facility] Vital Signs Date Time Vital Sign Value Performing Clinician Matias bell 04-17-2024 13:53-0500 Body height 167.6 cm Karolina GARG Work Phone: [facility] 04-17-2024 13:53-0500 Body mass index (BMI) [Ratio] 29.38 kg/m2 Karolina Dolce DPM FACFAS Work Phone: [facility] 04-17-2024 13:53-0500 Body weight 82.56 kg Karolina Dolce DPM FACFAS Work Phone: [facility] 04-17-2024 13:53-0500 Diastolic blood pressure 75 mm[Hg] Karolina Dolce DPM FACFAS Work Phone: [facility] 04-17-2024 13:53-0500 Heart rate 82 /min Karolina Dolce DPM FACFAS Work Phone: [facility] 04-17-2024 13:53-0500 Systolic blood pressure 129 mm[Hg] Karolina Dolce DPM FACFAS Work Phone: [facility] 03-27-2024 14:22-0500 Body height 167.6 cm Karolina Dolce DPM FACFAS Work Phone: [facility] 03-27-2024 14:22-0500 Body mass index (BMI) [Ratio] 29.38 kg/m2 Karolina Dolce DPM FACFAS Work Phone: [facility] 03-27-2024 14:22-0500 Body weight 82.56 kg Karolina Dolce DPM FACFAS Work Phone: [facility] 03-27-2024 14:22-0500 Diastolic blood pressure 77 mm[Hg] Karolina Dolce DPM FACFAS Work Phone: [facility] 03-27-2024 14:22-0500 Heart rate 80 /min Karolina Dolce DPM FACFAS Work Phone: [facility] 03-27-2024 14:22-0500 Systolic blood pressure 128 mm[Hg] Karolina Dolce DPM FACFAS Work Phone: [facility] 03-20-2024 13:41-0500 Body height 167.6 cm Karolina Dolce DPM FACFAS Work Phone: [facility] 03-20-2024 13:41-0500 Body mass index (BMI) [Ratio] 29.38 kg/m2 Karolina Dolce DPM FACFAS Work Phone: [facility] 03-20-2024 13:41-0500 Body weight 82.56 kg Karolina Dolce DPM FACFAS Work Phone: [facility] 03-20-2024 13:41-0500 Diastolic blood pressure 75 mm[Hg] Karolina Dolce DPM FACFAS Work Phone: [facility] 03-20-2024 13:41-0500 Heart rate 82 /min Karolina Dolce DPM FACFAS Work Phone: [facility] 03-20-2024 13:41-0500 Systolic blood pressure 129 mm[Hg] Karolina Dolce DPM FACFAS Work Phone: [facility] 02-23-2024 15:43-0500 Body height 167.6 cm Karolina Dolce DPM FACFAS Work Phone: [facility] 02-23-2024 15:43-0500 Body mass index (BMI) [Ratio] 29.38 kg/m2 Karolina Dolce DPM FACFAS Work Phone: [facility] 02-23-2024 15:43-0500 Body weight 82.56 kg Karolina Dolce DPM FACFAS Work Phone: [facility] 02-23-2024 15:43-0500 Diastolic blood pressure 76 mm[Hg] Karolina Dolce DPM FACFAS Work Phone: [facility] 02-23-2024 15:43-0500 Heart rate 85 /min Karolina Dolce DPM FACFAS Work Phone: [facility] 02-23-2024 15:43-0500 Systolic blood pressure 128 mm[Hg] Karolina Dolce DPM FACFAS Work Phone: [facility] 01-26-2024 16:45-0500 Body height 167.6 cm Karolina Dolce DPM FACFAS Work Phone: [facility] 01-26-2024 16:45-0500 Body mass index (BMI) [Ratio] 29.38 kg/m2 Karolina Dolce DPM FACFAS Work Phone: [facility] 01-26-2024 16:45-0500 Body weight 82.56 kg Karolina Dolce DPM FACFAS Work Phone: [facility] 01-26-2024 16:45-0500 Diastolic blood pressure 75 mm[Hg] Karolina Dolce DPM FACFAS Work Phone: [facility] 01-26-2024 16:45-0500 Heart rate 82 /min Karolina Dolce DPM FACFAS Work Phone: [facility] 01-26-2024 16:45-0500 Systolic blood pressure 130 mm[Hg] Karolina Dolce DPM FACFAS Work Phone: [facility] 10-27-2023 15:33-0400 Body height 167.6 cm Karolina Dolce DPM FACFAS Work Phone: [facility] 10-27-2023 15:33-0400 Body mass index (BMI) [Ratio] 29.38 kg/m2 Karolina Dolce DPM FACFAS Work Phone: [facility] 10-27-2023 15:33-0400 Body weight 82.56 kg Karolina Dolce DPM FACFAS Work Phone: [facility] 10-27-2023 15:33-0400 Diastolic blood pressure 74 mm[Hg] Karolina Dolce DPM FACFAS Work Phone: [facility] 10-27-2023 15:33-0400 Heart rate 80 /min Karolina Dolce DPM FACFAS Work Phone: [facility] 10-27-2023 15:33-0400 Systolic blood pressure 132 mm[Hg] Karolina Dolce DPM FACFAS Work Phone: [facility] Encounters Encounter Date Encounter Type Care [...] 03-15-2024 End: 03-15-2024 ambulatory Karolina R Dolce Facility:[facility] Start: 03-15-2024 End: 03-15-2024 Lab Drop off Karolina R Dolce Alejandro Vergara [facility] Start: 03-14-2024 End: 03-14-2024 Refill [...] 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) ([facility]/HCC) Start: 10-27-2023 End: 10-27-2023 ambulatory KAROLINA R DOLCE Not Available Start: 10-27-2023 End: 10-27-2023 Bamboo flowsheet Karolina R Dolce DPM FACFAS Work Phone: [facility] Start: 10-27-2023 End: 10-27-2023 Bamboo flowsheet Karolina R Dolce DPM FACFAS Work Phone: [facility] Start: 09-14-2023 End: 09-17-2023 Pre-admission assessment Karolina R Dolce [facility] Start: 09-13-2023 End: 09-13-2023 ambulatory KAROLINA R DOLCE Not Available Start: 08-25-2023 End: 08-25-2023 ambulatory KAROLINA R DOLCE Not Available Start: 07-26-2023 End: 07-26-2023 ambulatory KAROLINA R DOLCE Not Available Start: 07-05-2023 End: 07-05-2023 ambulatory KAROLINA R DOLCE Not Available Start: 06-22-2022 End: 06-22-2022 ambulatory Esdras Bonilla Facility:[facility] Start: 06-02-2022 ambulatory TERESA SANTINO Facility: [...] medical examination without abnormal findings TERESA DE [facility] Start: 10-08-2021 End: 10-09-2021 ambulatory TERESA [...] EST Office Visit [facility] [address] [phone] Karolina Bryson R, DPM FACFAS [address] [place] [address] [facility] Start: 03-27-2024 End: 03-27-2024 Patient encounter procedure [facility] Comment on above: Arrived Start: 03-20-2024 End: 03-20-2024 Patient encounter procedure [facility] Comment on above: Arrived Start: 02-23-2024 End: 02-23-2024 Patient encounter procedure 02/23/2024 3:40 PM EST Office Visit [facility] [address] [phone] Jesus Brysonm R, DPM FACFAS [address] [place] [address] Arrived [facility] Comment on above: Arrived Start: 01-26-2024 End: 01-26-2024 Patient encounter procedure 01/26/2024 4:50 PM EST Office Visit [facility] [address] [place] [phone] Jesus Brysonm R, DPM FACFAS [address] [facility] [place] [address] Arrived [facility] Comment on above: Arrived Start: 10-27-2023 End: 10-27-2023 Patient encounter procedure 10/27/2023 3:30 PM EDT Office Visit [facility] [address] [place] [phone] Karolina Bryson, DPM FACFAS [address] [facility] [facility] [place] [address] Arrived [facility] Comment on above: Arrived Start: 10-16-2023 Influenza vaccination Influenza Vacc ine (#1) [facility] Start: 2005 Screening for malign ant neoplasm of breast Mammogram [facility] Start: 11-13-1995 Screening for malign ant neoplasm of cervix [facility] Start: 1986 Screening for malign ant neoplasm of cervix Pap Smear [facility] Start: 1965 Screening for malign ant neoplasm of colon [facility] Payers Date Payer Category Payer Blue Cross Blue Shield [id number] 2023 Unknown BCBS BCBS xxxxxx [id number] 2023-Present [phone] [address] [place] [address] [id number] 2023 Unknown [id number] 2022 Self-pay 1965 Unknown [id number] 2.16.840.1.300478.3.579.2. 593 1965 Unknown [id number] 2.16.840.1.515180.3.579.2. 593 1965 Unknown [id number] 2.16.840.1.976876.3.579.2. 593 1965 Unknown [id number] 2.16.840.1.802914.3.579.2. 593 1965 Unknown [id number] 2.16.840.1.970893.3.579.2. 593 1965 Unknown [id number] 2.16.840.1.082000.3.579.2. 593 1965 Unknown [id number] 2.16.840.1.604699.3.579.2. 593 1965 Unknown [id number] 2.16.840.1.738973.3.579.2. 593 1965 Unknown [id number] 2.16.840.1.972546.3.579.2. 593 1965 Unknown [id number] 2.16.840.1.721746.3.579.2. 593 1965 Unknown [id number] 2.16.840.1.307390.3.579.2. 727 1965 Unknown [id number] 2.16.840.1.450569.3.579.2. 125 1965 Unknown [id number] 2.16.840.1.332883.3.579.2. 1258 1965 Unknown [id number] 2.16.840.1.846624.3.579.2. 125 1965 Unknown [id number] 2.16.840.1.799071.3.579.2. 125 1965 Unknown [id number] 2.16.840.1.820308.3.579.2. 125 1965 Unknown [id number] 2.16.840.1.593022.3.579.2. 1258 1965 Unknown [id number] 2.16.840.1.484000.3.579.2. 1258 1965 Unknown [id number] 2.16.840.1.340666.3.579.2. 1258 1965 Unknown [id number] 2.16.840.1.547407.3.579.2. 1259 1965 Unknown [id number] 2.16.840.1.897575.3.579.2. 1259 1965 Unknown [id number] 2.16.840.1.474912.3.579.2. 1259 1959 Unknown [id number] Unknown [id number] 2.16.840.1.157522.3.579.2. 531 Social History Date Type Detail Facility Tobacco smoking status [facility] Start: 09-13-2023 End: 04-17-2024 Sex Assigned At Female [facility] Start: 07-05-2023 Tobacco smoking stat [facility] Never smoked tobacco [facility] Work [...] < 3 seconds Digits 1-5 bilateral NEURO: Meredosia Scott 5.07 monofilament was intact B/L. Vibratory [...] p.r.n. RADHA Morales documented in this encounter [facility] 03-27-2024 History of Presen t illness Narrative [...] < 3 seconds Digits 1-5 bilateral NEURO: Meredosia Scott 5.07 monofilament was intact B/L. Vibratory [...] shoe RADHA Morales documented in this encounter [facility] 03-20-2024 History of Presen t illness Narrative [...] < 3 seconds Digits 1-5 bilateral NEURO: Meredosia Scott 5.07 monofilament was intact B/L. Vibratory [...] device. RADHA Morales documented in this encounter [facility] 03-14-2024 Telephone encounter Note Post op pain meds [facility] 03-14-2024 Miscellaneous Notes Post op pain meds documented in this encounter [facility] 02-23-2024 History of Presen t illness Narrative [...] < 3 seconds Digits 1-5 bilateral NEURO: Meredosia Scott 5.07 monofilament was intact B/L. Vibratory [...] february RADHA Morales documented in this encounter [facility] 01-26-2024 History of Presen t illness Narrative [...] < 3 seconds Digits 1-5 bilateral NEURO: Meredosia Scott 5.07 monofilament was intact B/L. Vibratory [...] tissue. RADHA Morales documented in this encounter [facility] 10-27-2023 History of Presen t illness Narrative [...] 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) ([facility]/HCC) PLAN Discussed in great detail the MRI findings patient is progressing well since her last injection she does not want to have any surgery at this time. Did briefly discuss neuroma resection. She will follow up as needed she is to continue with good structured shoes. RADHA Morales documented in this encounter [facility] Evaluation + Plan note No data available for this section [facility] Evaluation note Diagnosis Arciniega neuroma, right- Primary Metatarsal deformity, right 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) (CMS/HCC) documented in this encounter [facility]* Diagnosis Metatarsal deformity, right- Primary Arciniega neuroma, right Right foot pain Pain in soft tissues of limb documented in this encounter [facility]* Diagnosis Arciniega neuroma, right- Primary Metatarsal deformity, right documented in this encounter [facility]* Diagnosis Metatarsal deformity, right- Primary documented in this encounter [facility]* Diagnosis Arciniega neuroma, right- Primary Metatarsal deformity, right documented in this encounter [facility]* Diagnosis Arciniega neuroma, right- Primary Metatarsal deformity, right documented in this encounter [facility] Discharge instructions No data available for this section [facility] Progress note No data available for this section [facility] Summary Purpose Family History No Family History [...] section and content) DATE CREATED AUTHOR 06/03/2022 [facility] DATE CREATED AUTHOR AUTHOR'S ORGANIZ ATION 06/26/2022 [facility] DATE CREATED AUTHOR AUTHOR'S ORGANIZ ATION 03/17/2024 [facility] DATE CREATED AUTHOR AUTHOR'S ORGANIZ ATION 03/25/2024 [facility] DATE CREATED AUTHOR AUTHOR'S ORGANIZ ATION 04/19/2024 [facility] dical Specialists EPIC Patient Care team informatio n (unrecognized section and content) Technical Service Specialist Relationship Specialty Start Date End Date Paul Villatoro MD [address] [place] [phone] PCP - General Family Medicine 09/13/23 Teresa De MD [address] [place] [phone] Referring Physician Family Medicine 07/05/23 Technical Service Specialist Relationship Specialty Start Date End Date Paul Villatoro MD [address] [place] [phone] PCP - General Family Medicine 09/13/23 Teresa De MD [address] [place] [phone] Referring Physician Family Medicine 07/05/23 Technical Service Specialist Relationship Specialty Start Date End Date Paul Villatoro MD [address] [place] [phone] PCP - General Family Medicine 09/13/23 Teresa De MD [address] [place] [phone] Referring Physician Family Medicine 07/05/23 Technical Service Specialist Relationship Specialty Start Date End Date Paul Villatoro MD [address] [place] [phone] PCP - General Family Medicine 09/13/23 Teresa De MD [address] [place] [address] Referring Physician Family Medicine 07/05/23 Reason for [...] BE BASED ON THE PRIMARY CLINICAL RECORDS. [facility]. provides no warranty or guarantee of the accuracy or completeness of information in this document.
--- NOTE | 2024-09-01 09:30 | ED.GENADUL1 ---
HPI HPI - General Adult General Chief complaint: Recheck/Abnormal Lab/Rx Stated complaint: HIGH BLOOD PRESSURE IN THE LAST FEW DAYS Time Seen by Provider: 09/01/24 09:16 Source: patient Mode of arrival: walk-in History of Present Illness HPI narrative: The patient is a 58-year-old female with history of rheumatoid arthritis, comes to the ER with a concern of elevated blood pressure for the last 3 days, she mentioned that she was admitted here recently for cellulitis at that time she was told also that her blood pressure is elevated. That she does not have a consistent headache she have a headache that comes and goes and she does not have it at the moment although she had it earlier today, the patient denies any nausea vomiting or any blurry vision at any time she also denies any chest pain The patient had no change in her diet recently and she is taking right now her allergy medication on a daily basis because of her history of allergy and that has been the case since a long time. She mentioned that she cannot go 1 day without it all she will have hives Related Data Home Medications ?Medication ?Instructions ?Recorded ?Confirmed cetirizine 10 mg tablet 10 mg PO DAILY 08/13/24 09/01/24 ciprofloxacin HCl 500 mg tablet 500 mg PO Q12H 09/01/24 09/01/24 Allergies Allergy/AdvReac Type Severity Reaction Status Date / Time No Known Drug Allergies Allergy Verified 08/13/24 16:01 Opioid HPI Opioid Management Most Recent Opioid Data: Last Pain Scale 0 08/16/24, 08:33 Last ORT Total Score 0 08/13/24, 18:10 Last ORT Risk Category Low Risk 08/13/24, 18:10 Review of Systems ROS Status of ROS 10 or more systems reviewed and unremarkable except as noted in history and below [facility] Medical History Hypertension ?I10 - Essential (primary) hypertension (ICD-10) Arthritis, rheumatoid ?M06.9 - Rheumatoid arthritis, unspecified (ICD-10) Surgical History (Updated 08/13/24 @ 18:04 by Kaila Lozoya) History of cholecystectomy ?Z90.49 - Acquired absence of other specified parts of digestive tract (ICD-10) Hx of appendectomy ?Z90.49 - Acquired absence of other specified parts of digestive tract (ICD-10) H/O: hysterectomy ?Z90.710 - Acquired absence of both cervix and uterus (ICD-10) S/P foot surgery, right ?Z98.890 - Other specified postprocedural states (ICD-10) Family History (Updated 08/13/24 @ 18:05 by Kaila Lozoya) Mother Family history of cancer Family history of hypertension Social History (Updated 08/13/24 @ 18:07 by Kaila Lozoya) Within the past year, how often did you have a drink containing alcohol: 2-4 times a month Within the past year, how many standard drinks containing alcohol did you have on a typical day: 1 or 2 Within the past year, how often did you have six or more drinks on one occasion: never Total score: 0 Score interpretation: A score less than 3 is consistent with normal alcohol consumption. Smoking status: Former smoker Non-prescribed substance use: denies use Previous occupational history: [employer] Highest level of school completed/degree received: high school graduate Little interest or pleasure in doing things: not at all Feeling down, depressed, or hopeless: not at all Feel stressed/tense/nervous/anxious/difficulty sleeping: not at all Gender Identity: female Exam Narrative Exam Narrative: Nurses notes and vital signs reviewed and patient is not hypoxic. General: Well-appearing and in no apparent distress. Skin: Warm, dry, no pallor noted. No rash. Head: Normocephalic, atraumatic. Neck: Supple, non-tender. Cardiovascular: Regular Rate and Rhythm without murmur, gallop or rub. Respiratory: No accessory muscle use or respiratory distress. Lungs are clear to auscultation, no wheezing, rales or rhonchi Chest Wall: no tenderness Back: No midline thoracic or lumbar vertebral tenderness. No CVA tenderness Musculoskeletal: normal ROM, no calf or popliteal tenderness, no lower extremity edema/swelling GI: Abdomen is soft, non-distended. Normal bowel sounds. No masses appreciated. No tenderness to palpation. No rebound, guarding, or rigidity noted. Neurological: A&O x4. No cranial nerve dysfunction observed. Constitutional Vital Signs, click to edit/add: Last Vital Signs Temp 98.6 F 09/01/24 09:12 Pulse 88 09/01/24 10:00 Resp 17 09/01/24 10:00 BP 135/92 H 09/01/24 10:01 Pulse Ox 97 09/01/24 09:15 O2 Del Method Room Air 09/01/24 09:12 Course Vital Signs Vital signs: Vital Signs Temperature 98.6 F 09/01/24 09:12 Pulse Rate 104 H 09/01/24 09:12 Respiratory Rate 20 09/01/24 09:12 Blood Pressure 180/110 H 09/01/24 09:12 Pulse Oximetry 96 09/01/24 09:12 Oxygen Delivery Method Room Air 09/01/24 09:12 Temperature 98.6 F 09/01/24 09:12 Pulse Rate 88 09/01/24 10:00 Respiratory Rate 17 09/01/24 10:00 Blood Pressure 135/92 H 09/01/24 10:01 Pulse Oximetry 97 09/01/24 09:15 Oxygen Delivery Method Room Air 09/01/24 09:12 Medical Decision Making MDM Narrative Medical decision making narrative: The patient EKG showing sinus rhythm with a heart rate of [address] elevation or depression The patient CBC and chemistry showed no acute pathology and her blood pressure here was 135/92 The patient was discharged to follow-up with her primary care doctor next Tuesday She also was instructed about decreasing salt intake The patient is to follow up with primary care physician in next 2-3 days or to return to the emergency department should any of the signs or symptoms worsen or new symptoms develop. The patient agrees with the following Diagnosis and Treatment plan and the patient will be discharged home. Lab Data Labs: Lab Results 09/01/24 Range/Units 09:24 WBC 4.6 (4.0-11.0) 10^3/uL RBC 3.82 L (4.20-5.40) 10^6/uL Hgb 11.4 L (12.0-16.0) g/dL Hct 34.7 L (36.0-48.0) % MCV 90.8 (81.0-99.0) fL MCH 29.8 (26.7-34.0) pg MCHC 32.9 (29.9-35.2) g/dL RDW 14.0 (11.0-15.0) % Plt Count 136 L (150-450) 10^3/uL MPV 9.1 L (9.5-13.5) fL Neut % (Auto) 41.4 L (43.0-75.0) % Lymph % (Auto) 34.9 (20.5-60.0) % Cecil % (Auto) 11.3 (1.7-12.0) % Eos % (Auto) 10.9 H (0.9-7.0) % Baso % (Auto) 1.3 (0.2-2.0) % Neut # (Auto) 1.9 (1.4-6.5) 10^3/uL Lymph # (Auto) 1.6 (1.2-3.8) 10^3/uL Cecil # (Auto) 0.5 (0.3-0.8) 10^3/uL Eos # (Auto) 0.5 (0.0-0.7) 10^3/uL Baso # (Auto) 0.1 (0.0-0.1) 10^3/uL Abs Immat Gran (auto) 0.01 (0.00-0.03) 10^3/uL Imm/Tot Granulo (auto) 0.2 (0.0-0.5) % Sodium 144 (136-145) mmol/L Potassium 3.5 (3.5-5.1) mmol/L Chloride 108 H (98-107) mmol/L Carbon Dioxide 25.0 (21.0-32.0) mmol/L Anion Gap 14.5 BUN 9.0 (7.0-18.0) mg/dL Creatinine 0.72 (0.55-1.02) mg/dL Est GFR ( Amer) >60 (>=60 mL/min/1.73m^2) Est GFR (Non-Af Amer) >60 (>=60 mL/min/1.73m^2) BUN/Creatinine Ratio 12.5 Glucose 108 H (74-106) mg/dL Calcium 9.0 (8.5-10.1) mg/dL Total Bilirubin 0.7 (0.2-1.0) mg/dL AST 43 H (15-37) U/L ALT 54 (14-59) U/L Alkaline Phosphatase 97 (46-116) U/L Troponin I High Sens 6.5 (4.0-51.3) pg/mL Total Protein 7.2 (6.4-8.2) g/dL Albumin 3.2 L (3.4-5.0) g/dL Globulin 4.0 g/dL Albumin/Globulin Ratio 0.8 Discharge Plan Discharge Chief Complaint: Recheck/Abnormal Lab/Rx Clinical Impression: Elevated blood pressure reading Patient Disposition: Home, Self-Care Time of Disposition Decision: 10:03 Condition: Good Prescriptions / Home Meds: No Action ciprofloxacin HCl 500 mg tablet 500 mg PO Q12H cetirizine 10 mg tablet 10 mg PO DAILY Print Language: Urdu Instructions: Low-Sodium Diet (ED) Referrals: MARILYN DE [Primary Care Provider, Family Practice] - 1 week Discharge Date/Time: 09/01/24 10:11
[2024-09-01 09:36] LABS: Hematocrit 34.7 % (36.0-48.0); Hemoglobin 11.4 g/dL (12.0-16.0); Immature Granulocytes Abs Auto 0.01 10^3/uL (0.00-0.03); Immature Granulocytes Pct Auto 0.2 % (0.0-0.5); Lymphocytes Absolute Auto 1.6 10^3/uL (1.2-3.8); Mean Corpuscular HGB Conc 32.9 g/dL (29.9-35.2); Mean Corpuscular Hemoglobin 29.8 pg (26.7-34.0); Mean Corpuscular Volume 90.8 fL (81.0-99.0); Platelet Count 136 10^3/uL (150-450); Red Blood Count 3.82 10^6/uL (4.20-5.40); White Blood Count 4.6 10^3/uL (4.0-11.0)
[2024-09-01 09:56] LABS: Alanine Aminotransferase 54 U/L (14-59); Albumin Globulin Ratio 0.8; Albumin Level 3.2 g/dL (3.4-5.0); Alkaline Phosphatase 97 U/L (46-116); Anion Gap 14.5; Aspartate Amino Transferase 43 U/L (15-37); Blood Urea Nitrogen 9.0 mg/dL (7.0-18.0); Calcium 9.0 mg/dL (8.5-10.1); Carbon Dioxide 25.0 mmol/L (21.0-32.0); Chloride 108 mmol/L (98-107); Estimated GFR (African America >60 (>=60 mL/min/1.73m^2); Estimated GFR (Non-African Ame >60 (>=60 mL/min/1.73m^2); Globulin 4.0 g/dL; Glucose 108 mg/dL (74-106); Potassium 3.5 mmol/L (3.5-5.1); Sodium 144 mmol/L (136-145); Total Protein 7.2 g/dL (6.4-8.2)
== END 2024-09-01 10:11 | disposition home or self-care (01) ==
PROVIDERS: Emergency Provider Emergency Medicine; PCP Nurse Practitioner Family
DX: I10 Essential (primary) hypertension (principal); M06.9 Rheumatoid arthritis, unspecified; Z90.49 Acquired absence of other specified parts of digestive tract; Z90.710 Acquired absence of both cervix and uterus; Z87.891 Personal history of nicotine dependence
CPT/HCPCS: 36415; 80053; 84484; 85025; 93005; 99284

== ENCOUNTER 2024-11-21 15:25 | Outpatient (OUT) | payer BC, SELFPAY ==
--- OUTSIDE RECORDS SUMMARY | 2024-11-21 15:31 | XMS_ITS | CCD ---
Author Organization [facility] CliniSyid Care Team Providers Care Application Tester Name Role Phone TERESA DE Attending Unavailable SANTINO, TERESA Admitting Unavailable Ziebcory, Hayden Consulting Unavailable SANTINO, TERESA Primary Care Unavailable SANTINO, TERESA Consulting Unavailable SANTINO, TERESA Primary Care Unavailable WEST, KEILA Ambrocio Attending Unavailable WEST, KEILA V Admitting Unavailable WEST, KEILA V Consulting Unavailable SANTINO, TERESA Primary Care Unavailable WEST, KEILA V Attending Unavailable WEST, KEILA V Admitting Unavailable WEST, KEILA V Consulting Unavailable Zieber, Hayden Consulting Unavailable SANTINO, TERESA Primary Care Unavailable WEST, KEILA V Attending Unavailable WEST, KEILA V Admitting Unavailable WEST, KEILA Ambrocio Consulting Unavailable SANTINO, TERESA Primary Care Unavailable [...] MOHAMMED Admitting Unavailable AHMED, MOHAMMED Consulting Unavailable Lola Hyde Primary Care Physician Santino CAI, Teresa Unavailable Paul Villatoro MD Primary Care Provider [phone] Dolangela, Karolina R Attending Unavailable Dolce, Karolina R [...] Attending Unavailable DOLCE, KAROLINA R Attending Unavailable Chin Medley MD Attending Provider Santino APPLICATION DEFENSE MANAGER-C, Teresa Barker Primary Care Provider [phone] Teresa De Primary Care Unavailable Chin Medley Attending Unavailable Chin Medley Admitting Unavailable Medications Current Medications Medication Drug Class(es) Dates Sig (Normalized) Sig (Original) acetaminophen 325 mg / HYDROcodone bitartrate 5 mg oral tablet (1 source) Opioid Agonist Start: 03-14-2024 End: 03-19-2024 take 1 tablet by mouth every six hours for pain HYDROcodone-norberto taminophen (Hartly) 5-325 MG tablet Indications: Metatarsal deformity, right Take 1 tablet by mouth every 6 (six) hours if needed for severe pain for up to 5 days 20 tablet 03/14/2024 03/19/2024 Active cetirizine hydrochloride 10 mg oral tablet (3 sources) Histamine-1 Receptor Antagonist Start: 08-27-2024 take 1 tablet by mouth once daily as needed hydroCHLOROthiazide 12.5 mg oral tablet (3 sources) Thiazide Diuretic Start: 09-12-2024 take 1 tablet by mouth once daily leflunomide 20 mg oral tablet (3 sources) Antirheumatic Agent Start: 08-27-2024 take 1 tablet by mouth once daily predniSONE 20 mg oral tablet (2 sources) Start: 09-24-2024 take 3 tablets by mouth once daily Completed/Discontinued Medications Medication Drug Class(es) Dates Sig (Normalized) Sig (Original) ciprofloxacin 500 mg oral tablet (3 sources) Quinolone Antimicrobial Start: 09-12-2024 End: 09-12-2024 take 1 tablet by mouth twice daily Ciprofloxacin Hcl 500 mg tablet Discontinued 500 MG PO Twice daily September 12, 2024 12:00am September 12, 2024 1:47pm cyclobenzaprine hydrochloride 10 mg oral tablet (3 sources) Muscle Relaxant Start: 08-27-2024 End: 09-12-2024 take 1 tablet by mouth once daily at bedtime as needed Cyclobenzaprine 10 mg tablet Discontinued 10 MG PO Daily at bedtime as needed August 27, 2024 12:00am September 12, 2024 1:30pm folic acid 1 mg oral tablet (6 sources) Start: 09-12-2024 End: 09-12-2024 take 1 tablet by mouth twice daily Folic Acid 1 mg tablet Discontinued 1 MG PO Twice daily September 12, 2024 10:01am September 12, 2024 1:30pm Start: 08-27-2024 End: 09-12-2024 take 1 tablet by mouth once daily Folic Acid 1 mg tablet Discontinued 1 MG PO Daily August 27, 2024 12:00am September 12, 2024 10:02am linezolid 600 mg oral tablet (3 sources) Oxazolidinone Antibacterial Start: 08-27-2024 End: 09-12-2024 take 1 tablet by mouth twice daily Linezolid 600 mg tablet Discontinued 600 MG PO Twice daily August 27, 2024 12:00am September 12, 2024 1:30pm meclizine hydrochloride 25 mg oral tablet (3 sources) Antiemetic Start: 08-27-2024 End: 09-12-2024 take 1 tablet by mouth twice daily as needed Meclizine 25 mg tablet Discontinued 25 MG PO Twice daily as needed August 27, 2024 12:00am September 12, 2024 1:30pm meloxicam 15 mg oral tablet (3 sources) Nonsteroidal Anti-inflammatory Drug Start: 08-27-2024 End: 09-12-2024 take 1 tablet by mouth once daily Meloxicam 15 mg tablet Discontinued 15 MG PO Daily August 27, 2024 12:00am September 12, 2024 1:30pm naproxen 500 mg oral tablet (3 sources) Nonsteroidal Anti-inflammatory Drug Start: 09-12-2024 End: 09-24-2024 take 1 tablet by mouth twice daily Naproxen 500 mg tablet Discontinued 500 MG PO Twice daily September 12, 2024 12:00am September 24, 2024 2:38pm terbinafine 250 mg oral tablet (3 sources) Allylamine Antifungal Start: 08-27-2024 End: 09-12-2024 take 1 tablet by mouth once daily Terbinafine Hcl 250 mg tablet Discontinued 250 MG PO Daily August 27, 2024 12:00am September 12, 2024 1:30pm Problems Active Problems Problem Classification Problem Date [...] [PSORIATIC ARTHRITIS MUTILANS] Onset: 07-30-2021 Chronic Other inflammatory condition of skin (6 sources) Erythema nodosum; Translations: [Erythema nodosum] 09-12-2024 Episodic Other inflammatory condition of skin (1 source) Erythema nodosum; Translations: [Erythema nodosum] Onset: 10-10-2024 Episodic Other nervous system disorders (11 sources) Mortons neuroma of right foot; Translations: [Lesion of plantar nerve, right lower limb] 10-27-2023 Chronic Other skin disorders (4 sources) Nodule of subcutaneous tissue of left lower limb; Translations: [Localized swelling, mass and lump, left lower limb] 09-24-2024 Episodic Other skin disorders (1 source) Localized swelling, mass and lump, left lower limb; Translations: [Localized swelling, mass and lump, left lower limb] Onset: 10-10-2024 Episodic Rheumatoid arthritis and related disease (15 sources) Rheumatoid arthritis with rheumatoid factor, unspecified; Translations: [Rheumatoid arthritis of ankle] Onset: 08-03-2021 Chronic Skin and subcutaneous tissue infections (3 sources) Cellulitis; Translations: [Cellulitis, unspecified] 08-27-2024 Episodic Systemic lupus erythematosus and connective tissue disorders [...] Test Name Value Interpretation Reference Range Facility CT lower leg LT w conon 09-15 CT lower leg LT w con [facility] [place] [address] CT Scan Report Signed Patient: Cielo Ray MR#: [id number] 66 : 1965 Acct:[id number] Age/Sex: 58 / F ADM Date: 10/10/24 Loc: CT Room: Type: [facility] Attending Dr: Chin Medley MD Copies to: Chin Medley MD Ordering Provider: Chin Medley MD Date of Service: 10/10/24 CT/CT lower leg LT w con: R22.42 - Localized swelling, mass and lump, left lower limb CT left lower leg with contrast TECHNIQUE: 90 cc of Isovue-300The CT exam was performed using one or more the following dose reduction techniques: Automated exposure control, adjustment of the MA and/or Kv according to patient size, or use of the iterative reconstruction technique. COMPARISON: None HISTORY: Swelling for 4 months. Left lower leg Subcutaneous infiltrative changes, mild. No fluid collections. No subcutaneous air. Varicosities. Musculature unremarkable. Bony structures intact. CT/CT lower leg LT w con IMPRESSION: Mild subcutaneous infiltrative changes. No fluid collections. Varicosities. No bony or muscular abnormality. Impression dictated by: Zach Sousa M.D. 10/10/2024 9:38 PM Dictation Location: [place] [address] Transcribed By: [facility] 10/10/242137 Dictated By: Zach Sousa DO 10/10/242131 Signed By: 10/10/242137 Normal [facility] Surgical Pathology Reporton 03-19-2024 Surgical Pathology Report [facility] [address] [place] [address]- Surgical Pathology Report Collected Date/Time: 03/15/2024 09:30 [...] and entirely submitted in one cassette. (DC) DC:[facility] Microscopic Description Microscopic examination performed unless gross only specified. This report was transcribed using voice recognition technology and might contain unintended computerized petroleum transport driver errors. Normal [facility] Comment on above: Performed By: #### [id number] #### [facility] [address] [place] [address] VC CONSULT FOLLOWUPon 2021 VC CONSULT FOLLOWUP Patient: CIELO RAY Exam Date: 02/02/2022 : 1965 Gender:F Ordering : DR KEILA DE LA FUENTE M.D. Admission #: [id number] Family : Order #: [id number] CLICK HERE TO VIEW EXAM RADIOLOGY REPORT [...] Perla M.D. on 02/02/2022 at 15:55 Normal [facility] VC EXT VENOUS LT LIMITEDon 1 04-05-2021 VC EXT VENOUS LT LIMITED Patient: CIELO RAY Exam Date: 02/02/2022 : 1965 Gender:F Ordering : DR KEILA DE LA FUENTE M.D. Admission #: [id number] Family : Order #: [id number] CLICK HERE TO VIEW EXAM RADIOLOGY REPORT [...] Perla M.D. on 02/02/2022 at 15:51 Normal [facility] VC ENDOVENOUS ABL 1ST V LTon 01-26-2022 VC ENDOVENOUS ABL 1ST V LT Patient: CIELO RAY Exam Date: 01/26/2022 : 1965 Gender:F Ordering : DR KEILA DE LA FUENTE M.D. Admission #: [id number] Family : Order #: [id number] CLICK HERE TO VIEW EXAM RADIOLOGY REPORT [...] 01/26/2022 at 16:08 Normal [facility] [place] ALBUMINon 01-14-2022 Albumin [Mass/Vol] 3.6 g/dL Normal 3.4-5.0 [facility] Comment on above: Performed By: #### C JENELLE, ALB, ALT, CRP ####[facility] [place] [address] [place], [place] [address]UxDr. Wilbert Gomez CBC AUTO DIFFon 01-14-2022 BASO # 0.0 103/ul Normal 0.0-0.1 [facility] Comment on above: Performed By: #### C BC #### [facility] [place] [facility] [address] [place], [place] [address] Dr. Wilbert Gomez Basophils/100 WBC (Bld) 0.5 % Normal 0.2-2.0 [facility] Comment on above: Performed By: #### C BC #### [facility] [place] [facility] [address] [place] [address] Dr. Wilbert Gomez EO # 0.3 103/ul Normal 0.0-0.7 [facility] Comment on above: Performed By: #### C BC #### [facility] [place] [facility] [address] [place] [address] Dr. Wilbert Gomez Eosinophils/100 WBC (Bld) 4.2 % Normal 0.9-7.0 [facility] Comment on above: Performed By: #### C BC #### [facility] [place] [facility] [address] [place] [address] Dr. Wilbert Gomez Erythrocyte distribution width (RBC) [Ratio] 13.6 % Normal 11.0-15.0 [facility] Comment on above: Performed By: #### C BC #### [facility] [place] [facility] [address] [place] [address] Dr. Wilbert Gomez Hematocrit (Bld) [Volume fraction] 36.8 % Normal 36.0-48.0 [facility] Comment on above: Performed By: #### C BC #### [facility] [place] [facility] [address] [place] [address] Dr. Wilbert Gomez Hemoglobin (Bld) [Mass/Vol] 12.1 g/dL Normal 12.0-16.0 [facility] Comment on above: Performed By: #### C BC #### [facility] [place] [facility] [address] [place] [address] Dr. Wilbert Gomez IG # 0.02 10e3/ul Normal 0.00-0.03 [facility] Comment on above: Performed By: #### C BC #### [facility] [place] [facility] [address] [place] [address] Dr. Wilbert Gomez IG % 0.3 % Normal 0.0-0.5 [facility] Comment on above: Performed By: #### C BC #### [facility] [place] [facility] [address] [place] [address] Dr. Wilbert Gomez LYMPH # 2.6 103/ul Normal 1.2-3.8 [facility] [place] Comment on above: Performed By: #### C BC #### [facility] [place] [facility] [address] [place] [address] Dr. Wilbert Gomez Lymphocytes/100 WBC (Bld) 35.7 % Normal 20.5-60.0 [facility] Comment on above: Performed By: #### C BC #### [facility] [place] [facility] [address] [place] [address] Dr. Wilbert Gomez MANUAL DIFF REQ NO Normal [facility] Comment on above: Performed By: #### C BC #### [facility] [place] [facility] [address] [place] [address] Dr. Wilbert Gomez MCH (RBC) [Entitic mass] 31.7 pg Normal 26.7-34.0 [facility] Comment on above: Performed By: #### C BC #### [facility] [place] [facility] [address] [place] [address] Dr. Wilbert Gomez MCHC (RBC) [Mass/Vol] 32.9 g/dL Normal 29.9-35.2 [facility] [place] Comment on above: Performed By: #### C BC #### [facility] [place] [facility] [address] [place] [address] Dr. Wilbert Gomez MCV (RBC) [Entitic vol] 96.3 fL Normal 81.0-99.0 [facility] Comment on above: Performed By: #### C BC #### [facility] [place] [facility] [address] [place] [address] Dr. Wilbert Gomez MONO # 0.5 103/ul Normal 0.3-0.8 [facility] [place] Comment on above: Performed By: #### C BC #### [facility] [place] [facility] [address] [place] [address] Dr. Wilbert Gomez Monocytes/100 WBC (Bld) 6.2 % Normal 1.7-12.0 [facility] [place] Comment on above: Performed By: #### C BC #### [facility] [place] [facility] [address] [place] [address] Dr. Wilbert Gomez NEUT # 3.9 103/ul Normal 1.4-6.5 [facility] [place] Comment on above: Performed By: #### C BC #### [facility] [place] [facility] [address] [place] [address] [address] Wilbert Gomez Neutrophils/100 WBC (Bld) 53.1 % Normal 43.0-75.0 [facility] Comment on above: Performed By: #### C BC #### [facility] [place] [facility] [address] [place] [address] [address] Wilbert Gomez Platelet mean volume (Bld) [Entitic vol] 8.9 fL Critically low 9.5-13.5 [facility] Comment on above: Performed By: #### C BC #### [facility] [place] [facility] [address] [place] [address] [address] Wilbert Gomez PLT 275 103/ul Normal 150-450 [facility] Comment on above: Performed By: #### C BC #### [facility] [place] [facility] [address] [place] [address] Dr. Wilbert Gomez RBC 3.82 106/ul Critically low 4.20-5.40 [facility] Comment on above: Performed By: #### C BC #### [facility] [place] [facility] [address] [place] [address] [address] Wilbert Gomez WBC 7.3 103/ul Normal 4.0-11.0 [facility] Comment on above: Performed By: #### C BC #### [facility] [place] [facility] [address] [place] [place] [address] [address] Wilbert Gomez CREATININEon 01-14-2022 Creatinine [Mass/Vol] 0.79 mg/dL Normal 0.55-1.02 [facility] Comment on above: Performed By: #### C JENELLE, ALB, ALT, CRP ####[facility] [place] [address] [place] [address]DrHong Gomez EGFR-AF KOSOVAN >60 Normal >=60 [facility] Comment on above: Performed By: #### C JENELLE, ALB, ALT, CRP ####[facility] [place] [address] [place] [address]DrHong Gomez EGFR-NON AF KOSOVAN >60 Normal >=60 [facility] Comment on above: Performed By: #### C JENELLE, ALB, ALT, CRP ####[facility] [place] [address] [place], [place] [address]Za. Wilbert Gomez CRPon 01-14-2022 CRP 1.1 mg/dL Critically high <=1.0 [facility] Comment on above: Performed By: #### C JENELLE, ALB, ALT, CRP ####[facility] [place] [address] [place], [place] [address]Af. Wilbert Gomez SED RATE WESTERGRENon 2021 SED RATE 37 mm/hr Critically high <=30 [facility] Comment on above: Performed By: #### C BC #### [facility] [place] [facility] [address] [place], [place] [address] Dr. Wilbert Gomez [facility] 01-14-2022 ALT [Catalytic activity/Vol] 30 U/L Normal 14-59 [facility] Comment on above: Performed By: #### C JENELLE, ALB, ALT, CRP ####[facility] [place] [address] [place], [place] [address]PgDr. Wilbert Gomez VC CONSULT FOLLOWUPon 2021 VC CONSULT FOLLOWUP Patient: CIELO RAY Exam Date: 12/29/2021 : 1965 Gender:F Ordering : DR KEILA DE LA FUENTE M.D. Admission #: [id number] Family : Order #: [id number] CLICK HERE TO VIEW EXAM RADIOLOGY REPORT [...] Fuente MD on 12/29/2021 at 15:41 Normal [facility] VC EXT VENOUS LT LIMITEDon 1 02-28-2021 VC EXT VENOUS LT LIMITED Patient: CIELO RAY Exam Date: 12/29/2021 : 1965 Gender:F Ordering : DR KEILA DE LA FUENTE M.D. Admission #: [id number] Family : Order #: [id number] CLICK HERE TO VIEW EXAM RADIOLOGY REPORT [...] Fuente MD on 12/29/2021 at 15:34 Normal [facility] VC ENDOVENOUS ABL 1ST V LTon 12-22-2021 VC ENDOVENOUS ABL 1ST V LT Patient: CIELO RAY Exam Date: 12/22/2021 : 1965 Gender:F Ordering : DR KEILA DE LA FUENTE M.D. Admission #: [id number] Family : Order #: [id number] CLICK HERE TO VIEW EXAM RADIOLOGY REPORT [...] Fuente MD on 12/22/2021 at 16:10 Normal [facility] VC COMP CONSULTATIONon 11-30 VC COMP CONSULTATION Patient: CIELO RAY Exam Date: 11/30/2021 : 1965 Gender:F Ordering : DR KEILA DE LA FUENTE M.D. Admission #: [id number] Family : Order #: [id number] CLICK HERE TO VIEW EXAM RADIOLOGY REPORT [...] great saphenous and small saphenous veins. Bilateral transit planning manager veins and incompetent branch saphenous varicosities. PHYSICAL [...] arterial disease 5. CEAP: C2, EC, AP, [place] PLAN: 1. Continued use of compression stockings 2. Elevated legs and increased physical activity symptomatic relief 3. Endovenous laser ablation of left great saphenous left small saphenous veins, left and right transit planning manager veins. 4. Microfoam chemical ablation of dilated, incompetent branch saphenous varicosities within right and left lower extremities Nurse notes, history and physical were reviewed and confirmed, see attached forms. The nurse was present throughout the physical exam and consultation Dictated by: Hayden Perla M.D. on 12/01/2021 at 08:06 Approved by: Hayden Perla M.D. on 12/01/2021 at 09:12 Normal [facility] VC VENOUS REFLUX MICHELLE LMTon 1 VC VENOUS REFLUX MICHELLE LMT Patient: CIELO RAY Exam Date: 11/30/2021 : 1965 Gender:F Ordering : DR KEILA DE LA FUENTE M.D. Admission #: [id number] Family : Order #: [id number] CLICK HERE TO VIEW EXAM RADIOLOGY REPORT [...] treated GSV. Incomptent varicose vein associated with transit planning manager distal thigh measures 6.2 mm with 2.6s [...] thrombus. Compressibility: Normal. Flow: Deep venous reflux. Supervisor Stitching Department: Two medial/distal lower leg perfs measures 3.9 [...] and small saphenous veins. 2. Dilated, incompetent transit planning manager veins and branch saphenous varicosities bilaterally. 3. Consultation for endovenous ablation is recommended. Dictated by: Hayden Perla M.D. on 11/30/2021 at 15:51 Approved by: Hayden Perla M.D. on 11/30/2021 at 15:53 Normal [facility] INSULINon 10-09-2021 Insulin 11.9 uIU/mL Normal 2.6-24.9 [facility] Comment on above: Performed By: #### I NSULIN ####[facility] [place] [address] [place] [address]Dr. Wilbert Gomez T4, T3U, FTI LABCORPon 10-09 Free Thyroxine Index 2.1 Normal 1.2-4.9 [facility] Comment on above: Performed By: #### T HYLC ####[facility] [place] [address] [place] [address]Dr. Wilbert Gomez T3 Uptake 29 % Normal 24-39 [facility] Comment on above: Performed By: #### T HYLC ####[facility] [place] [address] [place] [address]Dr. Wilbert Gomez T4 [Mass/Vol] 7.4 ug/dL Normal 4.5-12.0 [facility] Comment on above: Performed By: #### T HYLC ####[facility] [place] [address] [place] [address]Dr. Wilbert Gomez GLYCOHEMOGLOBIN A1Con 2021 ADA RECOMMENDATION SEE BELOW Normal [facility] Comment on above: Result Comment: ADA RECOMMENDED LIMIT 4.0 - 6.0 ADA THERAPEUTIC TARGET < 7.0 ACTION SUGGESTED > 7.0 Performed By: #### A 1C ####[facility] [place] [address] [place], [place] [address]Vy. Wilbert Gomez Glucose [Mass/Vol] 111 mg/dL Normal [facility] Comment on above: Performed By: #### A 1C ####[facility] [place] [address] [place], [place] [address]Mq. Wilbert Gomez HbA1c (Bld) [Mass fraction] 5.5 % Normal 4.5-6.2 [facility] Comment on above: Performed By: #### A 1C ####[facility] [place] [address] [place] [address]Dr. Wilbert Gomez IRONon 10-08-2021 Iron [Mass/Vol] 67.0 ug/dL Normal 50.0-170.0 [facility] Comment on above: Performed By: #### I SOLA #### [facility] [place] [facility] [address] [place] [place] [address] [address] Wilbert Gomez LIPID PROFILEon 10-08-2021 CHOL-HDL RATIO NORM SEE BELOW Normal [facility] Comment on above: Result Comment: 3.3 - 4.4 LOW RISK 4.4 - 7.1 AVERAGE RISK 7.1 - 11.0 MODERATE RISK >11.0 HIGH RISK Performed By: #### L IPID, TSH, CMP ####[facility] [place] [address] [place] [address]Dr. Wilbert Gomez Cholesterol [Mass/Vol] 205 mg/dL Critically high <=200 [facility] Comment on above: Performed By: #### L IPID, TSH, CMP ####[facility] [place] [address] [place] [address]Dr. Wilbert Gomez Cholesterol in HDL [Mass/Vol] 81 mg/dL Critically high 40-60 [facility] Comment on above: Performed By: #### L IPID, TSH, CMP ####[facility] [place] [address] [place] [address]Dr. Wilbert Gomez Cholesterol in LDL [Mass/Vol] 108.0 mg/dL Normal [facility] Comment on above: Performed By: #### L IPID, TSH, CMP ####[facility] [place] [address] [place] [address]Dr. Wilbert Gomez Cholesterol.total/Ch olesterol in HDL [Mass ratio] 2.5 {ratio} Normal [facility] Comment on above: Performed By: #### L IPID, TSH, CMP ####[facility] [place] [address] [place] [address]Dr. Wilbert Gomez HDL NORMAL > or = 60 mg/dl - LO W CARDIOVASCULAR RISK <40 mg/dl - HIGH CARDIOVASCULAR RISK Normal [facility] Comment on above: Performed By: #### L IPID, TSH, CMP ####[facility] [place] [address] [place] [address]Dr. Wilbert Gomez LDL CALC NORMAL SEE BELOW Normal [facility] Comment on above: Result Comment: <100 mg/dl OPTIMAL 100 - 129 mg/dl NEAR OR ABOVE OPTIMAL 130 - 159 mg/dl BORDERLINE HIGH 160 - 189 mg/dl HIGH >190 mg/dl VERY HIGH Performed By: #### L IPID, TSH, CMP ####[facility] [facility] [id number] [place], [place] [address]Dr. Wilbert Gomez Triglyceride [Mass/Vol] 80 mg/dL Normal <=150 [facility] Comment on above: Performed By: #### L IPID, TSH, CMP ####[facility] [address] [place] [address]Dr. Wilbert Gomez VLDL CALC 16.0 mg/dL Normal [facility] Comment on above: Performed By: #### L IPID, TSH, CMP ####[facility] [address] [place] [address]Dr. Wilbert Gomez PROF 14(COMP METB)on 022 Albumin [Mass/Vol] 3.6 g/dL Normal 3.4-5.0 [facility] Comment on above: Performed By: #### L IPID, TSH, CMP ####[facility] [address] [place] [address]Dr. Wilbert Gomez Albumin/Globulin [Mass ratio] 1.0 {ratio} Normal [facility] Comment on above: Performed By: #### L IPID, TSH, CMP ####[facility] [address] [place] [address]Dr. Wilbert Gomez ALP [Catalytic activity/Vol] 86 U/L Normal 46-116 [facility] Comment on above: Performed By: #### L IPID, TSH, CMP ####[facility] [address] [place] [address]Dr. Wilbert Gomez ALT [Catalytic activity/Vol] 27 U/L Normal 14-59 [facility] Comment on above: Performed By: #### L IPID, TSH, CMP ####[facility] [address] [place], [place] [address]Dr. Wilbert Gomez Anion gap [Moles/Vol] 12.1 mmol/L Normal [facility] Comment on above: Performed By: #### L IPID, TSH, CMP ####[facility] [address] [place], [place] [address]Dr. Wilbert Gomez AST [Catalytic activity/Vol] 23 U/L Normal 15-37 [facility] Comment on above: Performed By: #### L IPID, TSH, CMP ####[facility] [address] [place], [place] [address]Dr. Wilbert Gomez Bilirubin [Mass/Vol] 0.6 mg/dL Normal 0.2-1.0 [facility] Comment on above: Performed By: #### L IPID, TSH, CMP ####[facility] [address] [place], [place] [address]Dr. Wilbert Gomez Calcium [Mass/Vol] 8.7 mg/dL Normal 8.5-10.1 [facility] Comment on above: Performed By: #### L IPID, TSH, CMP ####[facility] [address] [place], [place] [address]Dr. Wilbert Gomez Chloride [Moles/Vol] 104 mmol/L Normal 98-107 [facility] Comment on above: Performed By: #### L IPID, TSH, CMP ####[facility] [address] [place], [place] [address]Dr. Wilbert Gomez CO2 [Moles/Vol] 26.8 mmol/L Normal 21.0-32.0 [facility] Comment on above: Performed By: #### L IPID, TSH, CMP ####[facility] [address] [place] [address]Dr. Wilbert Gomez Creatinine [Mass/Vol] 0.85 mg/dL Normal 0.55-1.02 [facility] Comment on above: Performed By: #### L IPID, TSH, CMP ####[facility] [address] [place] [address]Dr. Wilbert Gomez EGFR-AF KOSOVAN >60 Normal >=60 [facility] Comment on above: Performed By: #### L IPID, TSH, CMP ####[facility] [address] [place], [place] [address]Dr. Wilbert Gomez EGFR-NON AF KOSOVAN >60 Normal >=60 [facility] Comment on above: Performed By: #### L IPID, TSH, CMP ####[facility] [address] [place], [place] [address]Dr. Wilbert Gomez Globulin (S) [Mass/Vol] 3.7 g/dL Normal [facility] Comment on above: Performed By: #### L IPID, TSH, CMP ####[facility] [address] [place] [address]Dr. Wilbert Gomez Glucose [Mass/Vol] 92 mg/dL Normal 74-106 [facility] Comment on above: Performed By: #### L IPID, TSH, CMP ####[facility] [address] [place] [address]Dr. Wilbert Gomez Potassium [Moles/Vol] 3.9 mmol/L Normal 3.5-5.1 [facility] Comment on above: Performed By: #### L IPID, TSH, CMP ####[facility] [address] [place] [address]Dr. Wilbert Gomez Protein [Mass/Vol] 7.3 g/dL Normal 6.4-8.2 [facility] Comment on above: Performed By: #### L IPID, TSH, CMP ####[facility] [address] [place] [address]Dr. Wilbert Gomez Sodium [Moles/Vol] 139 mmol/L Normal 136-145 [facility] Comment on above: Performed By: #### L IPID, TSH, CMP ####[facility] [address] [place] [address]Dr. Wilbert Gomez Urea nitrogen [Mass/Vol] 10.0 mg/dL Normal 7.0-18.0 [facility] Comment on above: Performed By: #### L IPID, TSH, CMP ####[facility] [address] [place] [address]Dr. Wilbert Gomez Urea nitrogen/Creatinine [Mass ratio] 11.8 mg/mg Normal [facility] Comment on above: Performed By: #### L IPID, TSH, CMP ####[facility] [address] [place] [address]DrHong Gomez TSHon 10-08-2021 TSH 0.731 uIU/mL Normal 0.358-3.740 [facility] Comment on above: Performed By: #### L IPID, TSH, CMP ####[facility] [address] [place] [address]DrHong Gomez ALBUMINon 07-30-2021 Albumin [Mass/Vol] 3.8 g/dL Normal 3.4-5.0 [facility] Comment on above: Performed By: #### C JENELLE, ALT, CRP, ALB #### [facility] [address] [address] [address] Wilbert Gomez CBC AUTO DIFFon 07-30-2021 BASO # 0.0 103/ul Normal 0.0-0.1 [facility] Comment on above: Performed By: #### C BC #### [facility] [address] [address] [address] Wilbert Gomez Basophils/100 WBC (Bld) 0.6 % Normal 0.2-2.0 [facility] Comment on above: Performed By: #### C BC #### [facility] [address] [place] [address] Dr. Wilbert Gomez EO # 0.2 103/ul Normal 0.0-0.7 [facility] Comment on above: Performed By: #### C BC #### [facility] [address] [place] [address] Dr. Wilbert Gomez Eosinophils/100 WBC (Bld) 4.1 % Normal 0.9-7.0 [facility] Comment on above: Performed By: #### C BC #### [facility] [address] [place] [address] Dr. Wilbert Gomez Erythrocyte distribution width (RBC) [Ratio] 14.0 % Normal 11.0-15.0 [facility] Comment on above: Performed By: #### C BC #### [facility] [address] [place] [address] Dr. Wilbert Gomez Hematocrit (Bld) [Volume fraction] 37.4 % Normal 36.0-48.0 [facility] Comment on above: Performed By: #### C BC #### [facility] [address] [place] [address] Dr. Wilbert Gomez Hemoglobin (Bld) [Mass/Vol] 12.2 g/dL Normal 12.0-16.0 [facility] Comment on above: Performed By: #### C BC #### [facility] [address] [place] [address] Dr. Wilbert Gomez IG # 0.01 10e3/ul Normal 0.00-0.03 [facility] Comment on above: Performed By: #### C BC #### [facility] [address] [place] [address] Dr. Wilbert Gomez IG % 0.2 % Normal 0.0-0.5 [facility] Comment on above: Performed By: #### C BC #### [facility] [address] [place] [address] Dr. Wilbert Gomez LYMPH # 1.6 103/ul Normal 1.2-3.8 [facility] Comment on above: Performed By: #### C BC #### [facility] [address] [place] [address] Dr. Wilbert Gomez Lymphocytes/100 WBC (Bld) 33.4 % Normal 20.5-60.0 [facility] Comment on above: Performed By: #### C BC #### [facility] [address] [place] [address] Dr. Wilbert Gomez MANUAL DIFF REQ NO Normal [facility] Comment on above: Performed By: #### C BC #### [facility] [address] [place] [address] Dr. Wilbert Gomez MCH (RBC) [Entitic mass] 31.9 pg Normal 26.7-34.0 [facility] Comment on above: Performed By: #### C BC #### [facility] [address] [place] [address] Dr. Wilbert Gomez MCHC (RBC) [Mass/Vol] 32.6 g/dL Normal 29.9-35.2 [facility] Comment on above: Performed By: #### C BC #### [facility] [address] [place] [address] Dr. Wilbert Gomez MCV (RBC) [Entitic vol] 97.7 fL Normal 81.0-99.0 [facility] Comment on above: Performed By: #### C BC #### [facility] [address] [place] [address] Dr. Wilbert Gomez MONO # 0.5 103/ul Normal 0.3-0.8 [facility] Comment on above: Performed By: #### C BC #### [facility] [address] [place] [address] Dr. Wilbert Gomez Monocytes/100 WBC (Bld) 11.0 % Normal 1.7-12.0 [facility] Comment on above: Performed By: #### C BC #### [facility] [address] [place] [address] Dr. Wilbert Gomez NEUT # 2.4 103/ul Normal 1.4-6.5 [facility] Comment on above: Performed By: #### C BC #### [facility] [address] [place] [address] Dr. Wilbert Gomez Neutrophils/100 WBC (Bld) 50.7 % Normal 43.0-75.0 [facility] Comment on above: Performed By: #### C BC #### [facility] [address] [place] [address] Dr. Wilbert Gomez Platelet mean volume (Bld) [Entitic vol] 8.8 fL Critically low 9.5-13.5 [facility] Comment on above: Performed By: #### C BC #### [facility] [address] [place] [address] Dr. Wilbert Gomez PLT 228 103/ul Normal 150-450 [facility] Comment on above: Performed By: #### C BC #### [facility] [address] [place] [address] Dr. Wilbert Gomez RBC 3.83 106/ul Critically low 4.20-5.40 [facility] Comment on above: Performed By: #### C BC #### [facility] [address] [place] [address] Dr. Wilbert Gomez WBC 4.8 103/ul Normal 4.0-11.0 [facility] Comment on above: Performed By: #### C BC #### [facility] [address] [place] [address] Dr. Wilbert Gomez CREATININEon 07-30-2021 Creatinine [Mass/Vol] 0.87 mg/dL Normal 0.55-1.02 [facility] Comment on above: Performed By: #### C JENELLE, ALT, CRP, ALB #### [facility] [address] [place] [address] Dr. Wilbert Gomez EGFR-AF KOSOVAN >60 Normal >=60 [facility] Comment on above: Performed By: #### C JENELLE, ALT, CRP, ALB #### [facility] [address] [place] [address] Dr. Wilbert Gomez EGFR-NON AF KOSOVAN >60 Normal >=60 [facility] Comment on above: Performed By: #### C JENELLE, ALT, CRP, ALB #### [facility] [address] [place] [address] Dr. Wilbert Gomez CRPon 07-30-2021 CRP 1.5 mg/dL Critically high <=1.0 [facility] Comment on above: Performed By: #### C JENELLE, ALT, CRP, ALB #### [facility] [address] [address] [address] Wilbert Gomez [facility] SED RATE 14 mm/hr Normal <=30 [facility] Comment on above: Performed By: #### S EDR #### [facility] [address] [address] [address] Wilbert Gomez [facility] 07-30-2021 ALT [Catalytic activity/Vol] 38 U/L Normal 14-59 [facility] Comment on above: Performed By: #### C JENELLE, ALT, CRP, ALB #### [facility] [address] [address] [address] Wilbert Gomez MG MAMM SCREEN 3D MICHELLE CADon 07-16-2021 MG MAMM SCREEN 3D MICHELLE CAD Patient: CIELO RAY Exam Date: 07/16/2021 : 1965 Gender:F Ordering : TERESA DE [facility] Admission #: [id number] Family : Order #: [id number] CLICK HERE TO VIEW EXAM RADIOLOGY REPORT [...] at age 55. LOCATION: [facility] BREAST COMPOSITION: Heterogeneously dense,which may obscure small [...] Perla M.D. on 07/17/2021 at 09:49 Normal [facility] Vital Signs Date Time Vital Sign Value Performing Clinician Facility 09-24-2024 14:19-0400 Body height 162.56 cm Teresa Santino APPLICATION DEFENSE MANAGER-C Work Phone: [facility] 09-24-2024 14:19-0400 Body mass index (BMI) [Ratio] 30 kg/m2 Teresa Santino [employer]PLICATION DEFENSE MANAGER-C Work Phone: [facility] 09-24-2024 14:19-0400 Body temperature 98.2 [degF] Teresa Santino APPLICATION DEFENSE MANAGER-C Work Phone: [facility] 09-24-2024 14:19-0400 Body weight 79.37 kg Teresa Santino APPLICATION DEFENSE MANAGER-C Work Phone: [facility] 09-24-2024 14:19-0400 Diastolic blood pressure 85 mm[Hg] Teresa Santino APPLICATION DEFENSE MANAGER-C Work Phone: [facility] 09-24-2024 14:19-0400 Heart rate 99 /min Teresa Santino APPLICATION DEFENSE MANAGER-C Work Phone: [facility] 09-24-2024 14:19-0400 Systolic blood pressure 127 mm[Hg] Teresa Santino APPLICATION DEFENSE MANAGER-C Work Phone: [facility] 09-12-2024 13:31-0400 Body height 162.56 cm Teresa Santino APPLICATION DEFENSE MANAGER-C Work Phone: [facility] 09-12-2024 13:31-0400 Body mass index (BMI) [Ratio] 30 kg/m2 Teresa Santino [employer]PLICATION DEFENSE MANAGER-C Work Phone: [facility] 09-12-2024 13:31-0400 Body temperature 97.6 [degF] Teresa Santino APPLICATION DEFENSE MANAGER-C Work Phone: [facility] 09-12-2024 13:31-0400 Body weight 79.37 kg Teresa De APPLICATION DEFENSE MANAGER-C Work Phone: [facility] 09-12-2024 13:31-0400 Diastolic blood pressure 87 mm[Hg] Teresa De APPLICATION DEFENSE MANAGER-C Work Phone: [facility] 09-12-2024 13:31-0400 Heart rate 93 /min Teresa De APPLICATION DEFENSE MANAGER-C Work Phone: [facility] 09-12-2024 13:31-0400 Systolic blood pressure 133 mm[Hg] Teresa De APPLICATION DEFENSE MANAGER-C Work Phone: [facility] 04-17-2024 13:53-0500 Body height 167.6 cm Karolina Dolce DPM FACFAS Work Phone: [facility] 04-17-2024 13:53-0500 Body mass index (BMI) [Ratio] 29.38 kg/m2 Karolina Dolce DPM FACFAS Work Phone: [facility] 04-17-2024 13:53-0500 Body weight 82.56 kg Karolina Dolce DPM FACFAS Work Phone: [facility] 04-17-2024 13:53-0500 Diastolic blood pressure 75 mm[Hg] Karolina Dolce DPM FACFAS Work Phone: [facility] 04-17-2024 13:53-0500 Heart rate 82 /min Karolina Dolce DPM FACFAS Work Phone: [facility] 04-17-2024 13:53-0500 Systolic blood pressure 129 mm[Hg] Karolina Dolce DPM FACFAS Work Phone: [facility] 03-27-2024 14:22-0500 Body height 167.6 cm Karolina Dolce DPM FACFAS Work Phone: [facility] 03-27-2024 14:22-0500 Body mass index (BMI) [Ratio] 29.38 kg/m2 Karolina Dolce DPM FACFAS Work Phone: [facility] 03-27-2024 14:22-0500 Body weight 82.56 kg Karolina Dolce DPM FACFAS Work Phone: [facility] 03-27-2024 14:22-0500 Diastolic blood pressure 77 mm[Hg] Karolina Dolce DPM FACFAS Work Phone: [facility] 03-27-2024 14:22-0500 Heart rate 80 /min Karolina Dolce DPM FACFAS Work Phone: [facility] 03-27-2024 14:22-0500 Systolic blood pressure 128 mm[Hg] Karolina Dolce DPM FACFAS Work Phone: [facility] 03-20-2024 13:41-0500 Body height 167.6 cm Karolina Dolce DPM FACFAS Work Phone: [facility] 03-20-2024 13:41-0500 Body mass index (BMI) [Ratio] 29.38 kg/m2 Karolina Dolce DPM FACFAS Work Phone: [facility] 03-20-2024 13:41-0500 Body weight 82.56 kg Karolina Dolce DPM FACFAS Work Phone: [facility] 03-20-2024 13:41-0500 Diastolic blood pressure 75 mm[Hg] Karolina Dolce DPM FACFAS Work Phone: [facility] 03-20-2024 13:41-0500 Heart rate 82 /min Karolina Dolce DPM FACFAS Work Phone: [facility] 03-20-2024 13:41-0500 Systolic blood pressure 129 mm[Hg] Karolina Dolce DPM FACFAS Work Phone: [facility] 02-23-2024 15:43-0500 Body height 167.6 cm Karolina Dolce DPM FACFAS Work Phone: [facility] 02-23-2024 15:43-0500 Body mass index (BMI) [Ratio] 29.38 kg/m2 Karolina Dolce DPM FACFAS Work Phone: [facility] 02-23-2024 15:43-0500 Body weight 82.56 kg Karolina Dolce DPM FACFAS Work Phone: [facility] 02-23-2024 15:43-0500 Diastolic blood pressure 76 mm[Hg] Karolina Dolce DPM FACFAS Work Phone: [facility] 02-23-2024 15:43-0500 Heart rate 85 /min Karolina Dolce DPM FACFAS Work Phone: [facility] 02-23-2024 15:43-0500 Systolic blood pressure 128 mm[Hg] Karolina Dolce DPM FACFAS Work Phone: [facility] 01-26-2024 16:45-0500 Body height 167.6 cm Karolina Dolce DPM FACFAS Work Phone: [facility] 01-26-2024 16:45-0500 Body mass index (BMI) [Ratio] 29.38 kg/m2 Karolina Dolce DPM FACFAS Work Phone: [facility] 01-26-2024 16:45-0500 Body weight 82.56 kg Karolina Dolce DPM FACFAS Work Phone: [facility] 01-26-2024 16:45-0500 Diastolic blood pressure 75 mm[Hg] Karolina Dolce DPM FACFAS Work Phone: [facility] 01-26-2024 16:45-0500 Heart rate 82 /min Karolina Dolce DPM FACFAS Work Phone: [facility] 01-26-2024 16:45-0500 Systolic blood pressure 130 mm[Hg] Karolina Dolce DPM FACFAS Work Phone: [facility] 10-27-2023 15:33-0400 Body height 167.6 cm Karolina Dolce DPM FACFAS Work Phone: [facility] 10-27-2023 15:33-0400 Body mass index (BMI) [Ratio] 29.38 kg/m2 Karolina Dolce DPM FACFAS Work Phone: [facility] 10-27-2023 15:33-0400 Body weight 82.56 kg Karolina Dolce DPM FACFAS Work Phone: [facility] 10-27-2023 15:33-0400 Diastolic blood pressure 74 mm[Hg] Karolina Dolce DPM FACFAS Work Phone: [facility] 10-27-2023 15:33-0400 Heart rate 80 /min Karolina Dolce DPM FACFAS Work Phone: [facility] 10-27-2023 15:33-0400 Systolic blood pressure 132 mm[Hg] Karolina Dolce DPM FACFAS Work Phone: [facility] Healthcare Encounters Encounter Date Encounter Type Care Provider Facility Start: 10-10-2024 End: 10-10-2024 Patient encounter procedure Chin Medley MD -[facility] Work Phone: Start: 10-10-2024 End: 10-10-2024 ambulatory Teresa Lucero Santino APPLICATION DEFENSE MANAGER-C Work Phone: [facility] Work Phone: Start: 09-24-2024 End: 09-24-2024 ambulatory Teresa Lucero Santino APPLICATION DEFENSE MANAGER-C Work Phone: [facility] Work Phone: Start: 09-24-2024 End: 09-24-2024 Patient encounter procedure Chin Medley MD -[facility] Work Phone: Start: 09-12-2024 End: 09-12-2024 ambulatory Teresadrake De APPLICATION DEFENSE MANAGER-C Work Phone: [facility] Work Phone: Start: 09-12-2024 End: 09-12-2024 Patient encounter procedure Chin Medley MD -[facility] Work Phone: Start: 04-17-2024 End: 04-17-2024 Postop follow up [...] 03-15-2024 End: 03-15-2024 ambulatory Karolina R Dolce Facility:[facility] Start: 03-15-2024 End: 03-15-2024 Lab Drop off Karolina R Dolce [place] [facility] Start: 03-14-2024 End: 03-14-2024 Refill Karolina [...] positive rheumatoid factor (HCC) ([facility]/HCC) Start: 10-27-2023 End: 10-27-2023 ambulatory KAORLINA R DOLCE Not Available Start: 10-27-2023 End: 10-27-2023 Bamboo flowsheet Karolina R Dolce DPM FACFAS Work Phone: [facility] Start: 10-27-2023 End: 10-27-2023 Bamboo flowsheet Karolina R Dolce DPM FACFAS Work Phone: [facility] Start: 09-14-2023 End: 09-17-2023 Pre-admission assessment Karolina R Dolce [facility] Start: 09-13-2023 End: 09-13-2023 ambulatory KAROLINA R DOLCE Not Available Start: 08-25-2023 End: 08-25-2023 ambulatory KAROLINA R DOLCE Not Available Start: 07-26-2023 End: 07-26-2023 ambulatory KAROLINA R DOLCE Not Available Start: 07-05-2023 End: 07-05-2023 ambulatory KAROLINA R DOLCE Not Available Start: 06-02-2022 ambulatory TERESA DE Facility: [facility] [...] [facility] Start: 10-08-2021 End: 10-09-2021 ambulatory TERESA DE Facility:[facility] Start: 10-08-2021 End: 10-09-2021 Encounter for general adult medical examination without abnormal findings TERESADRAKE UMAÑAMER Facility:[facility] Start: 07-30-2021 End: 07-31-2021 ambulatory ERIKA MCCRACKEN Facility:[facility] Start: 07-16-2021 End: 07-17-2021 ambulatory TERESADRAKE DE Facility:[facility] Procedures Date Procedure Procedure Detail Performing Clinician Start: 10-10-2024 CT of lower leg with contrast Teresa De APPLICATION DEFENSE MANAGER-C Work Phone: Plan of Treatment Date Care Activity Detail Author Start: 04-17-2024 End: 04-17-2024 Patient encounter procedure 04/17/2024 1:50 PM EST Office Visit [facility] [address] [place] [id number] Karolina Bryson R, DPM FACFAS [address] [place] [address] [facility] Start: 03-27-2024 End: 03-27-2024 Patient encounter procedure [facility] Comment on above: Arrived Start: 03-20-2024 End: 03-20-2024 Patient encounter procedure [facility] Comment on above: Arrived Start: 02-23-2024 End: 02-23-2024 Patient encounter procedure 02/23/2024 3:40 PM EST Office Visit [facility] [address] [place] [phone] Karolina Bryson R, DPM [facility]AC[facility]AS [address] [facility] [place] [address] Arrived [facility] Comment on above: Arrived Start: 01-26-2024 End: 01-26-2024 Patient encounter procedure 01/26/2024 4:50 PM EST Office Visit [facility] [address] [place] [address] Jesus Brysonm R, DPM FACFAS [address] [facility] [place] [address] Arrived [facility] Comment on above: Arrived Start: 10-27-2023 End: 10-27-2023 Patient encounter procedure 10/27/2023 3:30 PM EDT Office Visit [facility] [address] [place] [address] Karolina Bryson, DPM FACFAS [address] [facility] [place] [address] Arrived [facility] Comment on above: Arrived Start: 10-16-2023 Influenza vaccination Influenz a Vaccine (#1) [facility] Start: 2005 Screening for malign ant neoplasm of breast Mammogram [facility] Start: 11-13-1995 Screening for malign ant neoplasm of cervix [facility] Start: 1986 Screening for malign ant neoplasm of cervix Pap Smear [facility] Start: 1965 Screening for malign ant neoplasm of colon [facility] CT Lower leg - left W contrast IV [facility] Payers Date Payer Category Payer Self-pay 2023 Blue [employer] Blue Shield [id number] 2023 Unknown BCBS BCBS xxxxxx [id number] 2023-Present [phone] [id number] [place] [address] [id number]. [id number] 2023 Unknown [id number] 1965 Unknown [id number] 2.16.840.1.377613.3.579.2. 593 1965 Unknown [id number] 2.16.840.1.480216.3.579.2. 593 1965 Unknown [id number] 2.16.840.1.741464.3.579.2. 593 1965 Unknown [id number] 2.16.840.1.210189.3.579.2. 593 1965 Unknown [id number] 2.16.840.1.152375.3.579.2. 593 1965 Unknown [id number] 2.16.840.1.790165.3.579.2. 593 1965 Unknown [id number] 2.16.840.1.032291.3.579.2. 59 1965 Unknown [id number] 2.16.840.1.827096.3.579.2. 593 1965 Unknown [id number] 2.16.840.1.719302.3.579.2. 59 1965 Unknown [id number] 2.16.840.1.867450.3.579.2. 593 1965 Unknown [id number] 2.16.840.1.806932.3.579.2. 727 1965 Unknown [id number] 2.16.840.1.496494.3.579.2. 125 1965 Unknown [id number] 2.16.840.1.520093.3.579.2. 1258 1965 Unknown [id number] 2.16.840.1.054219.3.579.2. 125 1965 Unknown [id number] 2.16.840.1.703407.3.579.2. 1258 1965 Unknown [id number] 2.16.840.1.408063.3.579.2. 125 1965 Unknown [id number] 2.16.840.1.809554.3.579.2. 1258 1965 Unknown [id number] 2.16.840.1.177689.3.579.2. 125 1965 Unknown [id number] 2.16.840.1.855340.3.579.2. 1259 1965 Unknown [id number] 2.16.840.1.907275.3.579.2. 1259 1965 Unknown [id number] 2.16.840.1.076023.3.579.2. 9 1965 Unknown [id number] 2.16.840.1.718886.3.579.2. 1259 1959 Unknown [id number] Medicaid [employer] Medicaid [id number] 000 [id number] Unknown [id number] 2.16.840.1.922035.3.579.2. 531 Social History Date Type Detail Facility Tobacco smoking status [facility] Start: 09-13-2023 End: 04-17-2024 Sex Assigned At Female [facility] Start: 07-05-2023 End: 09-12-2024 Tobacco smoking status NHIS Never smoked tobacco [facility] Work Phone: Start: 07-05-2023 Tobacco use and exposure Smokeless tobacco non-user [facility] Start: 09-13-2023 End: 04-17-2024 Alcoholic beverage intake Defer [facility] Start: 09-13-2023 End: 04-17-2024 History of Social function [facility] Start: 1965 Sex assigned at Not on file [facility] Sex Female (finding) [facility] Start: 1965 Sex Assigned At Female F [facility] Clinical Notes 10-27-2023 to 10-10-2024 Note Date & Type Note Facility 10-10-2024 Radiology Diagnostic study note [facility] [place] [address] CT Scan Report Signed Patient: Cielo Ray MR#: [id number] : 1965 Acct:[id number] Age/Sex: 58 / F ADM Date: 5 Loc: CT Room: Type: [facility] CLI Attending Dr: Chin Medley MD Copies to: Chin Medley MD~ Ordering Provider: Chin Medley MD Date of Service: 10/10/24 CT/CT lower leg LT w con: R22.42 - Localized swelling, mass and lump, left lower limb CT left lower leg with contrast TECHNIQUE: 90 cc of Isovue-300The CT exam was performed using one or more the following dose reduction techniques: Automated exposure control, adjustment of the MA and/or Kv according to patient size, or use of the iterative reconstruction technique. COMPARISON: None HISTORY: Swelling for 4 months. Left lower leg Subcutaneous infiltrative changes, mild. No fluid collections. No subcutaneousair. Varicosities. Musculature unremarkable. Bony structures intact. CT/CT lower leg LT w con IMPRESSION: Mild subcutaneous infiltrative changes. No fluid collections. Varicosities. No bony or muscular abnormality. Impression dictated by: Zach Sousa M.D. 10/10/2024 9:38 PM Dictation Location: [place] [address] Transcribed By: [facility] 10/10/242137 Dictated By: Zach Sousa DO 10/10/242131 Signed By: 10/10/242137 [facility] 09-12-2024 Evaluation note Diagnosis Onset Date Resolution Chronic rheumatic arthritis acute September 12, 2024 1:20pm Erythema nodosum acute August 1:20pm Chronic rheumatic arthritis acute September 24 2:09pm Erythema nodosum acute September 142024 2:09pm Subcutaneous nodule of left lower extremity acute September 2:09pm [facility] Work Phone: 1(123) 230-298103-04-2025 History of Present illness Narrative* Karolina Bryson DPM FACFAS - 04/17/2024 1:50 PM EST Patient: Cielo Ray : 1965 PCP: Paul [...] < 3 seconds Digits 1-5 bilateral NEURO: Sparkill Scott 5.07 monofilament was intact B/L. Vibratory sensation was intact B/L Musculoskeletal: Muscle strength was +5 over 5 all intrinsic and extrinsic muscles tested. NegativeHomans test noted Surgical site evaluation: The incision site is healing well without signs infection. Minimal swelling noted. Consistent with the patient's level of surgery consistent with time frame postoperatively.Area is completely healed Radiographs: AP/MO/LAT: Diagnostic ultrasound: ASSESSMENT 1. Arciniega neuroma, right 2. Metatarsal deformity, right PLAN Patient will continue with good structured shoes she is released to work she will RTC p.r.n. RADHA Morales documented in this encounterE[facility] [id number] History of Present illness Narrative* RADHA Morales - 03/27/2024 2:20 PM EST Images from the original note were not [...] < 3 seconds Digits 1-5 bilateral NEURO: Sparkill Scott 5.07 monofilament was intact B/L. Vibratory sensation was intact B/L Musculoskeletal: Muscle strength was +5 over 5 all intrinsic and extrinsic muscles tested. NegativeHomans test noted Surgical site evaluation: The incision site is healing well without signs infection. Minimal swelling noted. Consistent with the patient's level of surgery consistent with time frame postoperatively.Sutures remain intact without signs of dehiscence. Radiographs: AP/MO/LAT: Diagnostic ultrasound: ASSESSMENT 1. Arciniega neuroma, right 2. Metatarsal deformity, right PLAN Removed sutures today. Today we applied a dry sterile dressing with betadine to the incision site. Covered the incision with 4x4s, Kerlix and Norberto bandage. The Patient is to continue ice and elevationon a regular basis. They were reminded to remain compliant with her weight-bearing status in the ambulatory surgical device. Pt is wearing her normal tennis shoe RADHA Morales documented in this encounterEastern [facility] State [id number] History of Present illness Narrative* RADHA Morales - 03/20/2024 1:30 PM EST Images from the original note were not [...] < 3 seconds Digits 1-5 bilateral NEURO: Sparkill Scott 5.07 monofilament was intact B/L. Vibratory sensation was intact B/L Musculoskeletal: Muscle strength was +5 over 5 all intrinsic and extrinsic muscles tested. NegativeHomans test noted Surgical site evaluation: The incision site is healing well without signs infection. Minimal swelling noted. Consistent with the patient's level of surgery consistent with time frame postoperatively.Sutures remain intact without signs of dehiscence. Radiographs: [...] surgical device. RADHA Morales documented in this encounterEastern [facility] HospitalCcpnmfzyrb92-05-9303 Telephone encounter Note* Telephone Encounter - RADHA Morales - 03/14/2024 4:15 PM EST Post op pain meds [facility] [id number] Miscellaneous Notes* Telephone Encounter - RADHA Morales - 03/14/2024 4:15 PM EST Post op pain meds documented in this encounterEastern [facility] State HospitalOekfmkklzf32-30-5110 History of Present illness Narrative* RADHA Morales - 02/23/2024 3:40 PM EST Images from the original note were not [...] < 3 seconds Digits 1-5 bilateral NEURO: Sparkill Scott 5.07 monofilament was intact B/L. Vibratory sensation was intact B/L Musculoskeletal: Muscle strength was +5 over 5 all intrinsic and extrinsic muscles tested. There issignificant pain with direct palpation of the interspace [...] course of the procedure in great detail. Ireviewed the preoperative laboratory and diagnostic findings today. We discussed further conservative therapies which the patient has attempted and has failed. I discussed the surgical procedure in great detail including the risks and possible complications. We discussed the following complicationsin great detail including but not limited to: Pain, infection, prolonged swelling, numbness, tingling, burning, nonhealing wound, nonunion, malunion, chronic pain, development of complex regional pain syndrome, development of deep venous thrombosis. Patient fully understood all possible risks and complications. All questions have been asked and answered. They have consented for the above-stated procedure. End february RADHA Morales documented in this encounterEastern Missouri State HospitalYxluqskpbw52-64-3625 History of Present illness Narrative* RADHA Morales - 01/26/2024 4:50 PM EST Images from the original note were not [...] as if the sock is curled up intheir shoe. This has progressively worsened over time. The patient has significant limitation in act ivities of daily living secondary to the pain. [...] < 3 seconds Digits 1-5 bilateral NEURO: Sparkill Scott 5.07 monofilament was intact B/L. Vibratory sensation was intact B/L Musculoskeletal: Muscle strength was +5 over 5 all intrinsic and extrinsic muscles tested. There issignificant pain with direct palpation the right 2nd interspace. Significant pain noted with lateral compression of the lesser metatarsals. Mild swelling noted within the interspace. Significant lossof plantar fat pad with prominent lesser metatarsal heads noted. There is no pain with range of motion of the ankle or subtalar joint. Mild gastrocnemius-soleus equinus. Radiographs: AP/MO/LAT: Diagnostic ultrasound: Diagnostic ultrasound 12 megahertz linear probe Hypoechoic neuroma about the2nd interspace right foot ASSESSMENT 1. Metatarsal deformity, right 2. Arciniega neuroma, right PLAN The patient was educated on the etiology of Intermetatarsal neuroma right. I discussed conservativeoptions including wider toe box shoes anti-inflammatory medications. [...] subcutaneous tissue. RADHA Morales documented in this encounterEastern Missouri State [id number] History of Present illness Narrative* RADHA Morales - 10/27/2023 3:30 PM EDT Patient: Cielo Ray : 1965 PCP: Paul [...] is progressing well since her last injection shedoes not want to have any surgery at this time. Did briefly discuss neuroma resection. She will follow up as needed she is to continue with good structured shoes. RADHA Morales [facility] Healthcare[facility] + Plan note No data available for this section [facility] Evaluation note* Diagnosis Arciniega neuroma, right- Primary Metatarsal deformity, right 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) (CMS/HCC) documented in [facility] encounter [facility]* Diagnosis Metatarsal deformity, right- Primary Arciniega neuroma, right Right foot pain Pain in soft tissues of limb documented in this encounter [facility] HealthcareEvaluation note* Diagnosis Arciniega neuroma, right- Primary Metatarsal deformity, right documented in this encounter [facility] HealthcareEvaluation note* Diagnosis Metatarsal deformity, right- Primary [facility]* Diagnosis Arciniega neuroma, right- Primary Metatarsal deformity, right documented in this encounter [facility] HealthcareEvaluation note* Diagnosis Arciniega neuroma, right- Primary Metatarsal deformity, right documented in this encounter [facility] HealthcareEvaluation noteNo assessment information availableUniversity Hospitals Cleveland Medical Center Work Phone: Hospital Discharge instructions No data available for this section [facility] Progress note No data available for this section [facility] Reason for referral (narrative)No reason for referral information availableUniversity Hospitals Cleveland Medical Center Work Phone: Summary Purpose Family History No Family History Records Found Relationship Condition Age at Onset Recorded Date/T shama father Heart disease Unknown mother Malignant neoplasm Unknown Hypertension Unknown Advance Directives No Advanced Directives Records Found Advance Directive Response Recorded Date/ Time Advance Directives No June 23 7:39am Chief Complaint and Reason for Visit Chief Complaint Admit Date Ref: Pedro De NP September 12, 2024 1:20 pm Chief Complaint Admit Date Ref: Pedro De NP September 12, 2024 1:20 pm Patient here for a f/u September 24, 2024 2:09pm Reason for Visit Admit Date Chronic rheumatic arthritis September 12 025 1:20pm Erythema nodosum September 12, 2024 1:20 pm Chronic rheumatic arthritis September 24, 2024 2:09pm Erythema nodosum September 24, 2024 2: 09pm Subcutaneous nodule of left lower extrem ity September 24, 2024 2:09pm Chief Complaint Admit Date Ref: Pedro De NP September 12, 2024 1:20 pm Patient here for a f/u September 24, 2024 2:09pm R22.42 L52 M06.9 October 10, 2024 3: 35pm Additional Source Comments INFORMATION SOURCE (unrecogn ized section and content) DATE CREATED AUTHOR 06/03/2022 [facility] pital DATE CREATED AUTHOR AUTHOR'S ORGANIZ ATION 03/17/2024 [place] [facility] ical Center DATE CREATED AUTHOR AUTHOR'S ORGANIZ ATION 03/25/2024 [place] [facility] ical Center DATE CREATED AUTHOR AUTHOR'S ORGANIZ ATION 04/19/2024 [facility] EPIC DATE CREATED AUTHOR AUTHOR'S ORGANIZ ATION 10/12/2024 [facility] Patient Care team informatio n (unrecognized section and content) Application Tester Relationship Specialty Start Date End Date Paul Villatoro MD [address] [place] [phone] PCP - General Family Medicine 09/13/23 Teresa De MD [address] [place] [phone] Referring Physician Family Medicine 07/05/23 Application Tester Relationship Specialty Start Date End Date Paul Villatoro MD [address] [place] [phone] PCP - General Family Medicine 09/13/23 Teresa De MD [address] [place] [phone] Referring Physician Family Medicine 07/05/23 Application Tester Relationship Specialty Start Date End Date Paul Villatoro MD [address] [place] [phone] PCP - General Family Medicine 09/13/23 Teresa De MD [address] [place] [phone] Referring Physician Family Medicine 07/05/23 Application Tester Relationship Specialty Start Date End Date Paul Villatoro MD [address] [place] [phone] PCP - General Family Medicine 09/13/23 Teresa De MD [address] [place] [address] Referring Physician Family Medicine 07/05/23 Team Status: Active Member Role Status Dates ANGELIKA ChristieC Primary Care Provider Active Team Status: Inactive Member Role Status Dates Chin Medley MD Attending Provider Active Sta rt: September 12, 2024 End: September 12, 2024 HUGO Christie Primary Care Provider Active Start: September 12, 2024 End: September 12, 2024 Team Status: Inactive Member Role Status Dates HUGO Christie Primary Care Provider Active Start: September 24, 2024 End: September 24, 2024 Chin Medley MD Attending Provider Active Sta rt: September 24, 2024 End: September 24, 2024 Team Status: Inactive Member Role Status Dates Teresa Lucero Santino , APPLICATION DEFENSE MANAGER-C Primary Care Provider Active Start: October 10, 2024 End: October 10, 2024 Chin Medley MD Attending Provider Active Sta rt: October 10, 2024 End: October 10, 2024 Reason for Visit (unrecogniz ed section and [...] Comments Foot/ankle Post-op WK 5 post op Goals (unrecognized section and content) Goals may be documented in a n alternate section FOR RECORDS PERTAINING TO PATIENTS WHO ARE [...] BE BASED ON THE PRIMARY CLINICAL RECORDS. [facility]. provides no warranty or guarantee of the accuracy or completeness of information in this document.
--- NOTE | 2024-11-21 15:55 | XR_ITS ---
The [address] [address] Patient Name: CIELO STEVENS MRN: [id number] date: 1965 Sex: F Assigned Patient Location: LAB Current Patient Location: LAB Accession/Order Number: [id number] Exam Date: 11/21/2024 15:49 Report Date: 11/21/2024 17:51 At the request of: BRANDI ARDON NP Procedure: XR chest 2V PA AND LATERAL CHEST: CLINICAL HISTORY: Rheumatoid arthritis COMPARISON: None FINDINGS: Unremarkable/nonenlarged cardiomediastinal silhouette. Lungs are clear. No effusion or pneumothorax. Mild degenerative changes of the thoracic spine. XR/XR chest 2V IMPRESSION: NO ACUTE CARDIOPULMONARY ABNORMALITY. Impression dictated by: Chester Stock M.D. 11/21/2024 5:51 PM Dictation Location: [place] [address] Electronically authenticated by: [id number] Y Date: 11/21/2024 17:51
== END 2024-11-21 15:26 | disposition home or self-care (01) ==
PROVIDERS: PCP Nurse Practitioner Family; Visit Provider Nurse Practitioner Family
DX: M05.79 Rheumatoid arthritis with rheumatoid factor of multiple sites without organ or systems involvement (principal); Z79.899 Other long term (current) drug therapy
CPT/HCPCS: 36415; 71046; 86317; 86480; 86704; 86803; 87340